=== PATIENT | male | born 1955 | race Caucasian/White ===

== ENCOUNTER → 2017-05-25 09:32 | Outpatient (CLI) | payer OTHER, SELFPAY ==
[2017-05-25 12:41] LABS: Absolute Lymphocyte Count 1.66 X10^3/ul (0.83-4.51); Absolute Neutrophil Count 4.2 X10^3/uL (2.0-7.7); Basophil# 0.03 X10^3/uL; Basophil% 0.4 % (0-1); Eosinophil# 0.19 X10^3/uL; Eosinophils% 2.8 % (0-5); Hematocrit 46.3 % (40-54); Hemoglobin 15.8 g/dl (13.0-16.5); Lymphocyte # 1.66 X10^3/ul (4.0); Lymphocyte % 24.9 % (19-41); Mean Corp Hgb Conc 34.1 g/gl (32-36); Mean Corpuscular Volume 87.9 fL (80-94); Mean Platelet Vol. 9.5 fl (6.2-12.0); Monocyte# 0.63 X10^3/uL; Monocyte% 9.4 % (0-10); Neutrophil # 4.16 X10^3/uL (2.7-7.7); Neutrophil % 62.4 % (47-70); Platelet Count 280 K/mm3 (150-450); RBC Distribution Width CV 14.2 % (11.6-14.6); RBC Distribution Width SD 45.9 fl (35.1-43.9); Red Blood Count 5.27 M/mm3 (4.6-6.2); White Blood Count 6.7 K/mm3 (4.4-11.0)
[2017-05-25 12:45] LABS: POSITIVE COUNT NO; POSITIVE DIFFERENTIAL NO; POSITIVE MORPHOLOGY NO
[2017-05-25 14:59] LABS: ALB/GLOB Ratio 1.1 RATIO (0.9-2.4); AST(SGOT) 20 U/L (15-37); Alanine Aminotransfer ALT/SGPT 33 U/L (12-78); Alkaline Phosphatase 73 U/L (45-117); Anion Gap 8 (5-15); BUN 19 mg/dL (7-18); BUN/Creat Ratio 15.4 RATIO (10-20); Calcium,Total 9.1 mg/dL (8.5-10.1); Chloride 104 mmol/L (98-107); Cholesterol 189 mg/dL (200); Creatinine, Serum 1.23 mg/dL (0.70-1.30); EST Glomerular Filtration Rate 63 mL/min (>60); Est Glom Filt Rate - Afr Amer 76 mL/min (>60); Globulin 3.8 g/dL (2.2-4.2); Glucose 116 mg/dL (70-110); High Density Lipoprotein 53 mg/dL; PSA,Total - Annual Screen 1.73 ng/mL (0.00-4.00); Potassium 4.8 mmol/L (3.5-5.1); Protein, Total 7.8 g/dL (6.4-8.2); Sodium Level 139 mmol/L (136-145); Thyroid Stim Hormone (TSH) 1.59 uIU/mL (0.358-3.74); Triglycerides 73 mg/dL; Very Low Density Lipoprotein 15 mg/dL (5-40)
[2017-05-26 10:07] LABS: Hep C Antibodies 0.2 s/co ratio (0.0-0.9)
== END ==
PROVIDERS: Family Provider Family Medicine Geriatric Medicine; PCP Family Medicine Geriatric Medicine; Visit Provider Family Medicine Geriatric Medicine
DX: Z00.00 Encounter for general adult medical examination without abnormal findings (principal); Z12.5 Encounter for screening for malignant neoplasm of prostate; Z13.89 Encounter for screening for other disorder
CPT/HCPCS: 36415; 80053; 80061; 84153; 84443; 85025; 86803; G0103

== ENCOUNTER → 2017-11-07 12:32 | Outpatient (CLI) | payer OTHER, SELFPAY ==
--- NOTE | 2017-11-07 12:55 | RAD_ITS ---
STUDY: X-RAY CHEST REASON FOR EXAM: Male, 62 years old. History of Martins's lung. TECHNIQUE: PA and lateral views of the chest. COMPARISON: Comparison is made with prior study dated November 06, 2015. FINDINGS: Since prior study, there is evidence of diffuse increased interstitial markings in both lungs. This is suggestive of a mild degree of CHF. There is blunting of both costophrenic angles posteriorly. Sternal cerclage wires and vascular clips are present from a prior sternotomy and coronary artery bypass graft procedure (CABG). Mild cardiomegaly. Normal mediastinum and shaista. Normal visualized pulmonary arteries. There is atherosclerotic tortuosity of the aortic arch and descending thoracic aorta. Normal visualized thoracic spine. Normal visualized ribs, clavicles, and shoulders. There is no demonstrated abnormality of the visualized soft tissue structures of the upper abdomen. RAD/Chest PA and Lateral IMPRESSION: Mild cardiomegaly. Diffuse increased interstitial markings in both lungs with blunting of both costophrenic angles. This is suggestive of mild CHF. Electronically Signed: Gerber Jovel MD at 13:43 EDT Tel [phone], Service support ,
[2017-11-07 16:27] LABS: Absolute Lymphocyte Count 1.42 X10^3/ul (0.83-4.51); Absolute Neutrophil Count 4.4 X10^3/uL (2.0-7.7); Basophil# 0.03 X10^3/uL; Basophil% 0.5 % (0-1); Eosinophils% 1.6 % (0-5); Hematocrit 38.8 % (40-54); Hemoglobin 12.7 g/dl (13.0-16.5); Lymphocyte # 1.42 X10^3/ul (4.0); Mean Corp Hgb Conc 32.7 g/gl (32-36); Mean Corpuscular Hgb 28.9 pg (27.0-32.0); Mean Corpuscular Volume 88.4 fL (80-94); Mean Platelet Vol. 9.8 fl (6.2-12.0); Monocyte# 0.54 X10^3/uL; Monocyte% 8.4 % (0-10); Neutrophil # 4.35 X10^3/uL (2.7-7.7); Neutrophil % 67.3 % (47-70); Platelet Count 307 K/mm3 (150-450); RBC Distribution Width CV 15.2 % (11.6-14.6); RBC Distribution Width SD 49.1 fl (35.1-43.9); Red Blood Count 4.39 M/mm3 (4.6-6.2); White Blood Count 6.5 K/mm3 (4.4-11.0)
[2017-11-07 16:28] LABS: POSITIVE COUNT NO; POSITIVE DIFFERENTIAL NO; POSITIVE MORPHOLOGY NO
[2017-11-07 16:39] LABS: Anion Gap 9 (5-15); BUN 14 mg/dL (7-18); BUN/Creat Ratio 12.2 RATIO (10-20); CPK Total, Creatine Kinase 207 U/L (39-308); Calcium,Total 9.1 mg/dL (8.5-10.1); Chloride 107 mmol/L (98-107); Creatinine, Serum 1.15 mg/dL (0.70-1.30); EST Glomerular Filtration Rate 68 mL/min (>60); Est Glom Filt Rate - Afr Amer 82 mL/min (>60); Glucose 110 mg/dL (74-106); Potassium 4.1 mmol/L (3.5-5.1); Sodium Level 142 mmol/L (136-145)
[2017-11-07 16:49] LABS: BNP,B-Type NATRIURETIC PEPTIDE 689.5 pg/mL (0-100)
[2017-11-07 17:21] LABS: D-Dimer Quantitative (DVT/PE) 0.77 FEU/ug/m (0.27-0.49)
[2017-11-11 20:07] LABS: Aspirgillus flavus Negative (Neg:<1:1); Aspirgillus fumigatus Negative (Neg:<1:1); Aspirgillus niger Negative (Neg:<1:1)
[2017-11-12 09:55] LABS: Myoglobin, Serum 80 ng/mL (28-72)
== END ==
PROVIDERS: Family Provider Family Medicine Geriatric Medicine; PCP Family Medicine Geriatric Medicine; Visit Provider Family Medicine Geriatric Medicine
DX: J67.0 Farmer's lung (principal); R06.02 Shortness of breath; R07.9 Chest pain, unspecified
CPT/HCPCS: 36415; 71046; 80048; 82550; 83874; 83880; 84484; 85025; 85379; 86606

== ENCOUNTER 2017-11-07 22:15 | Inpatient (IN) | payer OTHER, SELFPAY ==
[2017-11-07 22:15] VITALS: BP 208/114; PULSE 107; RESP 18; TEMP 36.5; O2SAT 98; BMI 29.8
[2017-11-07 22:50] VITALS: O2SAT 95
--- NOTE | 2017-11-07 22:59 | ED.RN ---
CALLED FOR EKG PER RN REQUEST, NO OLD EKG'S IN MUSE
[2017-11-07 23:13] VITALS: O2SAT 97
--- NOTE | 2017-11-07 23:13 | EKG12_ITS ---
Test Reason : SOB Blood Pressure : / mmHG Vent. Rate : 094 BPM Atrial Rate : 094 BPM P-R Int : 166 ms QRS Dur : 102 ms QT Int : 422 ms P-R-T Axes : 069 067 103 degrees QTc Int : 527 ms Normal sinus rhythm Prolonged QT Abnormal ECG Confirmed by EMILY GUY, DAYANA ([id number]), editor index WANG AMAYA ([id number]) on 11/10/2017 8:57:21 AM Referred By: Cliff Pardo Confirmed By:DAYANA DIAZ MD
--- NOTE | 2017-11-07 23:13 | CT_ITS ---
STUDY: CTA CHEST REASON FOR EXAM: Male, 62 years old. Shortness of breath and cough for 3 weeks. Elevated d-dimer. RADIATION DOSAGE (If Supplied By Facility): CTDIvol = ( 17.21 ) mGy, DLP = ( 702.18 ) mGycm TECHNIQUE: The examination was performed with the intravenous administration of 100ML ml of Isovue 370 contrast material. Post-processing of the angiographic images was performed, with multiplanar reformation. Individualized dose optimization techniques were used for this CT. COMPARISON: None. FINDINGS: Normal enhancement of the main pulmonary artery and right and left pulmonary arteries. Normal enhancement of the bilateral peripheral pulmonary arteries. There is no demonstrated pulmonary embolism. There is atherosclerotic tortuosity of the aortic arch and descending thoracic aorta. There is suboptimal enhancement of the thoracic aorta. Normal heart and pericardium. Sternal cerclage wires are present from a prior sternotomy. There are coronary calcifications. There is no evidence of pericardial effusion. There are few small mediastinal and left hilar nodes. There is no evidence of adenopathy. Normal visualized trachea and bronchi. The lungs are well expanded. There are prominent interstitial markings bilaterally and mild bronchiectatic changes. There are mild atelectatic changes in the lung bases. No focal infiltrate is seen. There is moderate right and small left pleural effusions. Normal chest wall structures. There are degenerative changes of thoracic spine. The visualized portions of the upper abdomen demonstrate questionable small gallstones. The gallbladder is contracted. The stomach is distended. CT/CTA Chest W/WO Contrast IMPRESSION: No evidence of pulmonary embolism. Bilateral pleural effusions larger on the right side. No focal infiltrate is seen. Mild atelectatic changes. Electronically Signed: Gabe Madsen MD at 0:15 EDT Tel , Service support ,
[2017-11-07 23:17] VITALS: PULSE 94; RESP 25; O2SAT 98
[2017-11-07] MEDS: Aspirin 81 MG TAB.CHEW 324 MG PO (23:21)
[2017-11-07 23:52] LABS: Absolute Lymphocyte Count 0.31 X10^3/ul (0.83-4.51); Absolute Neutrophil Count 7.4 X10^3/uL (2.0-7.7); Hematocrit 40.2 % (40-54); Hemoglobin 13.3 g/dl (13.0-16.5); Lymphocyte # 0.31 X10^3/ul (4.0); Mean Corp Hgb Conc 33.1 g/gl (32-36); Mean Corpuscular Hgb 28.9 pg (27.0-32.0); Mean Corpuscular Volume 87.2 fL (80-94); Mean Platelet Vol. 9.6 fl (6.2-12.0); Monocyte# 0.07 X10^3/uL; Monocyte% 0.9 % (0-10); Neutrophil # 7.35 X10^3/uL (2.7-7.7); Platelet Count 347 K/mm3 (150-450); RBC Distribution Width CV 14.9 % (11.6-14.6); RBC Distribution Width SD 47.5 fl (35.1-43.9); Red Blood Count 4.61 M/mm3 (4.6-6.2); White Blood Count 7.7 K/mm3 (4.4-11.0)
[2017-11-07 23:53] LABS: Differential Indicated SCAN CRITERIA MET; POSITIVE COUNT NO; POSITIVE DIFFERENTIAL YES; POSITIVE MORPHOLOGY NO
[2017-11-08] VITALS (28 sets, daily range): BP systolic 105–176; BP diastolic 52–98; PULSE 70–98; RESP 16–31; TEMP 36.4–36.7; O2SAT 92–98; BMI 29.4
[2017-11-08 00:02] LABS: Anion Gap 10 (5-15); BUN 17 mg/dL (7-18); BUN/Creat Ratio 14.8 RATIO (10-20); Calcium,Total 8.9 mg/dL (8.5-10.1); Chloride 108 mmol/L (98-107); Creatinine, Serum 1.15 mg/dL (0.70-1.30); EST Glomerular Filtration Rate 68 mL/min (>60); Est Glom Filt Rate - Afr Amer 82 mL/min (>60); Estimated Creatinine Clearance 71.23 ml/min; Glucose 209 mg/dL (74-106); Sodium Level 140 mmol/L (136-145)
[2017-11-08 00:23] LABS: Differential Comment SCANNED
--- NOTE | 2017-11-08 00:36 | ED.DCSUM_ITS ---
- ER Visit Summary Date of Service: 11/08/17 Chief Complaint: Shortness of breath History of Present Illness: The patient is a 62 M who presents with shortness of breath for about 3 weeks. He had initially attributed this to some moldy hay that he had been in contact with. He complains of dyspnea on exertion and nonproductive cough. His symptoms are relieved with rest. He denies any associated chest pain nausea or diaphoresis. He does have a history of coronary artery disease and prior bypass but denies history of congestive heart failure. Also of note 1 week ago he flew out to [place] and then drove back. He has noticed some leg swelling. He was seen by his primary care physician today who obtained an outpatient workup which returned notable for elevated d- dimer BNP troponin and findings consistent with CHF on chest x-ray so was sent here for further evaluation. Physical Examination: Initial blood pressure 208/114 heart rate 107 no distress pulse ox 98% on room air Moist mucous membranes Heart regular rhythm tachycardia Lungs are clear Abdomen soft Alert Test Results: EKG shows sinus rhythm at a rate of 94. CBC BMP unremarkable. Troponin is 0.231 which is decreased from labs earlier today. CTA was obtained due to recent travel and positive d-dimer which showed bilateral pleural effusions but no evidence of pulmonary embolism. Emergency Department Course and Treatment: Patient was given aspirin on arrival here. He was placed on oxygen. He was given IV Lasix for acute congestive heart failure. He will require further workup including serial enzymes and echocardiogram, cardiology consultation. Patient was discussed with the hospitalist will be admitted. Treatment Plan: [] Disposition: Admit Impression: Acute congestive heart failure Coronary artery disease Elevated troponin This note was generated with [employer] dictation software. It may contain incorrect words, spelling, and punctuation that were not noted in review of the chart prior to signing ED Disposition - Plan for ED Patient: Chief Complaint: Shortness of Breath Referrals: Cliff Pardo Chi, MD [Primary Care Provider] -
[2017-11-08] MEDS: Furosemide 40 MG/4 ML Vial IV ×2 (01:08→17:35)
[2017-11-08] MEDS: TICAGRELOR 90 MG TABLET 180 MG PO (01:18)
[2017-11-08] MEDS: Enoxaparin 100 MG/ML Syringe SC (01:18)
--- NOTE | 2017-11-08 02:08 | ECHOD_ITS ---
Reason For Study: S/P ME Procedure This was a 2D Doppler, Color Flow transthoracic echocardiogram. Exam performed portable in patient room. Left Ventricle Moderately dilated left ventricle. The estimated ejection fraction is 30-35 %. Stage 2 diastolic dysfunction. There is moderate to severe global hypokinesis of the left ventricle. Right Ventricle Moderately dilated right ventricle. Mild global right ventricular systolic dysfunction. Atria The left atrium is moderately enlarged. The right atrium is moderately enlarged. Normal atrial septum. Mitral Valve Mild diffuse mitral valve thickening. Mild-Moderate (1-2+) mitral valve insufficiency. Tricuspid Valve Normal tricuspid valve. Trivial tricuspid valve insufficiency. Right ventricular systolic pressure estimated to be 37 mmHg. Mild pulmonary hypertension. Aortic Valve Trisinus/trileaflet aortic valve. Mild diffuse aortic valve thickening. Mild-Moderate (1-2+) eccentric aortic valve insufficiency. Pulmonic Valve Normal pulmonic valve. Trivial pulmonic valve insufficiency. Great Vessels Normal aortic root. Normal arch. The inferior vena cava is dilated. No collapse of the inferior vena cava. Pericardium/Pleural No pericardial effusion. MMode/2D Measurements & Calculations LVIDd: 5.8 cm IVSd: 0.85 cm Ao root diam: 3.7 cm LVIDs: 4.9 cm LVPWd: 0.94 cm LA dimension: 4.6 cm RVDd: 4.2 cm FS: 16.5 % LAV(MOD-bp): 83.6 ml LVAd ap4: 49.1 cm2 SV(MOD-sp4): 73.8 ml LAV(MOD-bp) Indexed: 38.0 ml/m2 EDV(MOD-sp4): 195.0 ml LAV(MOD-sp2): 100.6 ml EDV(sp4-el): 199.5 ml LAV(MOD-sp4): 64.6 ml LVAs ap4: 34.5 cm2 ESV(MOD-sp4): 121.3 ml ESV(sp4-el): 117.2 ml EF(MOD-sp4): 37.8 % EF(sp4-el): 41.2 % SV(sp4-el): 82.2 ml LA A4 area: 23.1 cm2 RA A4 area: 22.2 cm2 Time Measurements MV dec time: 0.15 sec Doppler Measurements & Calculations MV E max mariusz: 131.2 cm/sec Lat Peak E' Mariusz: 4.6 cm/sec Med Peak E' Mariusz: 4.3 cm/sec MV A max mariusz: 32.6 cm/sec E/E' lat: 28.5 E/E' med: 30.6 MV E/A: 4.0 Ao V2 max: 118.9 cm/sec AI max mariusz: 503.0 cm/sec LV V1 max: 96.7 cm/sec Ao max P.7 mmHg AI max P.2 mmHg LV V1 max P.7 mmHg AI dec slope: 472.7 cm/sec2 AI P1/2t: 311.7 msec TR max mariusz: 284.5 cm/sec TR max P.4 mmHg Interpretation Summary Moderately dilated left ventricle. The estimated ejection fraction is 30-35 %. Stage 2 diastolic dysfunction. There is moderate to severe global hypokinesis of the left ventricle. Moderately dilated right ventricle. Mild global right ventricular systolic dysfunction. The left atrium is moderately enlarged. The right atrium is moderately enlarged. Mild-Moderate (1-2+) mitral valve insufficiency. Trivial tricuspid valve insufficiency. Right ventricular systolic pressure estimated to be 37 mmHg. Mild pulmonary hypertension. Mild-Moderate (1-2+) eccentric aortic valve insufficiency. Compared to echo report dated 07/22/2015, LV function has decreased from 55% to 35%. AI and MR have remained the same. Ordering Physician: Mick Emanuel Referring Physician: Cliff Pardo Chi Performed By: Charito Chow, CIRACS, RVT
[2017-11-08 04:40] LABS: Bacteria 0 SEEN /hpf (None Seen); Mucous, Urine 0 SEEN /hpf (<or=2+); Red Blood Cells-Urine 0 SEEN /hpf (0-5); Squamous Epithelial Cells - UA 0 SEEN /hpf (0-5); White Blood Cells 0 SEEN /hpf (0-5)
[2017-11-08 04:53] LABS: Color, Urine Straw (Yellow); Glucose, Dipstick Normal (Normal); Ketone-Dipstick Negative (Negative); Leukocyte Esterase-Dipstick Negative /ul (Negative); Nitrite-Dipstick Negative (Negative); Occult Blood-Urine Negative /ul (Negative); Protein-Dipstick Negative (Negative); Specific Gravity, Urine 1.005 (1.002-1.030); Urine Bilirubin Dipstick Negative (Negative); Urine Clarity Clear (Clear); Urine Urobilinogen Normal (Normal)
--- NOTE | 2017-11-08 04:54 | PCM.HP.STD ---
Problem List (1) Shortness of breath Status: Acute (2) Elevated troponin Status: Acute History of Present Illness Date of Admission: 11/08/17 Chief Complaint: Elevated troponin, shortness of breath The patient is a 62 year old M who was seen in the emergency room at [facility] after being instructed to go there for evaluation after an office visit today by his PCP revealed his troponin to be elevated at 0.44 and his beta natruretic peptide to be elevated at 689. Patient had seen his PCP today with complaints of extreme shortness of breath over the last week and mild to moderate shortness of breath over the last 3 weeks. Patient had no complaints of any cough with sputum production, no complaints of fever, chills, or hemoptysis. He has a past history of coronary artery bypass in July 2015, patient had a stress test in 2016 which was negative for reversible ischemia. Workup in the emergency room revealed the patient's troponin to be 0.23, CT of the chest was performed which showed no evidence of pulmonary emboli, evidence of mild bronchiectasis was noted, there was a moderate right pleural effusion and a small left pleural effusion along with marked interstitial changes in the lungs. Patient's beta natruretic peptide was not rechecked. EKG was obtained which showed a normal sinus rhythm without evidence of ischemic changes. Patient was not hypoxic on room air. Patient was given IV Lasix in the emergency room, he will be admitted to PCU for a non-STEMI and CHF. I will maintain him on a small amount of IV Lasix twice a day, echocardiogram will be obtained and cardiology will be consulted. Past Medical History Past Medical History (Chronic Problems): Chronic Problems (Last Reviewed 10/10/17 @ 15:45 by Hina Minor) White coat syndrome with hypertension (Chronic) RBBB (Chronic) Premature ventricular contraction (Chronic) Nonrheumatic aortic valve insufficiency (Chronic) Atherosclerosis of coronary artery of [place] heart without angina pectoris (Chronic) CABG x 3 FZST-pucd-wm-side-Mid LAD and end-to-side to the apical segment, Free ABIMAEL-OM, SVG-PDA of the RCA 08/12/2015 H/O coronary artery bypass surgery (Chronic ~08/12/15) CABG x 3 LUYD-ttpu-uy-side-Mid LAD and end-to-side to the apical segment, Free ABIMAEL-OM, SVG-PDA of the RCA 08/12/2015 Non-alcoholic fatty liver disease (Chronic) Hyperlipidemia (Chronic) Hypertension (Chronic) Medical History: Medical History (Last Reviewed 10/10/17 @ 15:45 by Hina Minor) White coat syndrome with hypertension (Chronic) I10 RBBB (Chronic) I45.10 Premature ventricular contraction (Chronic) I49.3 Nonrheumatic aortic valve insufficiency (Chronic) I35.1 Atherosclerosis of coronary artery of [place] heart without angina pectoris (Chronic) I25.10 CABG x 3 VXJQ-pkgz-zh-side-Mid LAD and end-to-side to the apical segment, Free ABIMAEL-OM, SVG-PDA of the RCA 08/12/2015 Non-alcoholic fatty liver disease (Chronic) K76.0 Hyperlipidemia (Chronic) E78.5 Hypertension (Chronic) I10 Allergies pravastatin sodium [From Pravachol] Allergy (Verified 11/07/17 22:18) Unknown atorvastatin calcium [From Lipitor] Adverse Reaction (Verified 11/07/17 22:18) Pain in joints gemfibrozil Adverse Reaction (Verified 11/07/17 22:18) myalgia Home Medications: Ambulatory Orders Medication Instructions Recorded aspirin 81 mg tablet,delayed 81 mg PO DAILY 05/24/17 release carvedilol 3.125 mg tablet 3.125 mg PO BID #180 tab 05/24/17 lisinopril 20 mg tablet 20 mg PO BID #180 tab 05/24/17 Surgical History: Surgical History (Last Reviewed 10/10/17 @ 15:45 by Hina Minor) H/O coronary artery bypass surgery (Chronic) Onset Date: ~08/12/15 Z95.1 CABG x 3 WSNU-axey-qn-side-Mid LAD and end-to-side to the apical segment, Free ABIMAEL-OM, SVG-PDA of the RCA 08/12/2015 History of esophagogastroduodenoscopy (EGD) Onset Date: ~2014 Z98.890 Surgical History: coronary bypass surgery, tonsillectomy Psychiatric History: No pertinent psych hx Lives: Spouse/ Significant Other Smoking Status: Never smoker Tobacco Use: Non-smoker Alcohol: None Drugs: None - *Family History Maternal Family History: Family History (Last Reviewed 10/10/17 @ 15:45 by Hina Minor) Mother CAD (coronary artery disease) History Items: Heart Disease Paternal Family History: Family History (Last Reviewed 10/10/17 @ 15:45 by Hina Minor) Mother CAD (coronary artery disease) History Items: Unknown Review of Systems Constitutional: Reports: Fatigue. Denies: Anorexia, Chills, Fever, Night Sweats, Malaise, Weakness, Weight Change Eyes: Denies: Blurred vision, Cataracts, Conjunctivae Inflammation, Double vision, Drainage HEENT: Denies: Difficulty Swallowing, Dysphasia, Ear Pain, Eye Pain, Head Aches, Hearing Changes, Nasal bleeding, Nasal Congestion, Post Nasal Drip Cardiovascular: Reports: Light Headedness. Denies: Chest Pain, Claudication, Chest Pressure, Chest Tightness, Edema, Heaviness, Orthopnea, Palpitations, Paroxysmal Noc. Dyspnea, Syncope Respiratory: Reports: Shortness of Breath, Shortness of breath upon exertion. Denies: Cough, Hemoptysis, Pleuritic Pain, Shortness of breath at rest, Sputum production, Wheezing Gastrointestinal: Denies: Abdominal Pain, Constipation, Diarrhea, Hematemesis, Hematochezia, Nausea Genitourinary: Denies: Frequency, Hematuria, Nocturia, Retention Musculoskeletal: Denies: Back Pain, Foot Pain, Hand Pain, Joint swelling, Joint Tenderness, Leg Pain Skin: Denies: Dryness, Jaundice, Pruritis, Rash Neurological: Denies: Blurred vision, Double vision, Change in Speech, Focal weakness, Headaches, Incoordination Psychiatric: Denies: Anxiety, Depression Endocrine: Denies: Change in Body Habitus, Heat/ Cold Intolerance, Polyuria, Hx of Irradiation VTE Information - Inpt Only VTE Present on Admission: No VTE Mechan Device Prophylaxis: None VTE Pharm Prophylaxis ordered?: Yes Patient Problems: Active and Suspected Problems (Last Reviewed 10/10/17 @ 15:45 by Hina Minor) Shortness of breath (Acute) Elevated troponin (Acute) - Physical Exam General: Alert, Oriented x3, Cooperative, No apparent distress, Well developed, Well nourished HEENT: Atraumatic, PERRLA, EOMI, Normocephalic Oral: Moist Mucosa Neck: Supple, No JVD, Negative Carotid Bruits, No Nuchal Rigidity, Trachea Midline, Thyroid Normal Size and Texture Lungs: Clear to auscultation, Normal air movement, No rhonchi, No wheeze, No rales Cardiovascular: Regular rate, Regular Rhythm, Normal S1, Normal S2, No murmurs, PMI Normal, No rub noted, No Gallop Abdomen: Bowel Sounds Present, Soft, Non Tender, Non-Distended, No hernias noted Extremities: No clubbing, No cyanosis, Capillary Refill Less than 3 Seconds, Edema - Mild pitting edema is noted in the lower legs bilaterally Skin: No rashes, No breakdown Musculoskeletal: No Tenderness to Palpation of Joints or Extremities Neurological: Cranial nerves II-XII grossly intact, Neuro grossly intact, Muscle tone normal, Sensory exam intact to light touch and pain Psych/Mental Status: Normal Affect, Appropriate, Alert and oriented to time, place, person, mood and affect Vital Signs Temp Pulse Resp BP Pulse Ox 97.6 F L 98 16 169/91 H 97 11/08/17 02:21 11/08/17 03:02 11/08/17 02:21 11/08/17 02:25 11/08/17 02:28 Oxygen Delivery Method Room Air Weight: 98.4 kg Body Mass Index (BMI) 29.4 Laboratory Tests Past 24 Hrs 11/08/17 11/08/17 03:05 03:30 Troponin I 0.249 H Urine Color Straw Urine Clarity Clear Urine pH 7.0 Ur Specific [place] 1.005 Urine Protein Negative Urine Glucose (UA) Normal Urine Ketones Negative Urine Occult Blood Negative Urine Nitrite Negative Urine Bilirubin Negative Urine Urobilinogen Normal Ur Leukocyte Esterase Negative Urine RBC Pending Urine WBC Pending Ur Squamous Epith Cells Pending Urine Bacteria Pending Urine Mucus Pending Assessment/Plan All Active Problems (Last Reviewed 10/10/17 @ 15:45 by Hina Minor) Shortness of breath (Acute) Elevated troponin (Acute) #1 elevated troponins indicating probable [id number] will be admitted to PCU, enzymes will be cycled, patient will be seen by cardiology in consultation, he was given 1 dose of Lovenox 1 mg/kg subcu, he was also given Brilinta 180 mg p.o. Cardiology will decide if patient will require a cardiac catheterization. Echocardiogram will be obtained, patient will be monitored #2 Probable mild congestive heart failure-it is unknown whether this is systolic or diastolic in nature, echocardiogram will be obtained, patient will be maintained on a small amount of IV Lasix and monitored. #3 dyspnea-probably secondary to mild CHF #4 coronary artery disease by history Code Visit Inpatient E&M: 72162 Init Hosp L3
--- NOTE | 2017-11-08 05:05 | HP.PCM_ITS ---
Problem List (1) Shortness of breath Status: Acute (2) Elevated troponin Status: Acute History of Present Illness Date of Admission: 11/08/17 Chief Complaint: Elevated troponin, shortness of breath The patient is a 62 year old M who was seen in the emergency room at [facility] after being instructed to go there for evaluation after an office visit today by his PCP revealed his troponin to be elevated at 0.44 and his beta natruretic peptide to be elevated at 689. Patient had seen his PCP today with complaints of extreme shortness of breath over the last week and mild to moderate shortness of breath over the last 3 weeks. Patient had no complaints of any cough with sputum production, no complaints of fever, chills, or hemoptysis. He has a past history of coronary artery bypass in July 2015, patient had a stress test in 2016 which was negative for reversible ischemia. Workup in the emergency room revealed the patient's troponin to be 0.23, CT of the chest was performed which showed no evidence of pulmonary emboli, evidence of mild bronchiectasis was noted, there was a moderate right pleural effusion and a small left pleural effusion along with marked interstitial changes in the lungs. Patient's beta natruretic peptide was not rechecked. EKG was obtained which showed a normal sinus rhythm without evidence of ischemic changes. Patient was not hypoxic on room air. Patient was given IV Lasix in the emergency room, he will be admitted to PCU for a non-STEMI and CHF. I will maintain him on a small amount of IV Lasix twice a day, echocardiogram will be obtained and cardiology will be consulted. Past Medical History Past Medical History (Chronic Problems): Chronic Problems (Last Reviewed 10/10/17 @ 15:45 by Hina Minor) White coat syndrome with hypertension (Chronic) RBBB (Chronic) Premature ventricular contraction (Chronic) Nonrheumatic aortic valve insufficiency (Chronic) Atherosclerosis of coronary artery of [place] heart without angina pectoris ( Chronic) CABG x 3 MYTH-iwhf-yr-side-Mid LAD and end-to-side to the apical segment, Free ABIMAEL-OM, SVG-PDA of the RCA 08/12/2015 H/O coronary artery bypass surgery (Chronic ~08/12/15) CABG x 3 VMAV-qhne-nv-side-Mid LAD and end-to-side to the apical segment, Free ABIMAEL-OM, SVG-PDA of the RCA 08/12/2015 Non-alcoholic fatty liver disease (Chronic) Hyperlipidemia (Chronic) Hypertension (Chronic) Medical History: Medical History (Last Reviewed 10/10/17 @ 15:45 by Hina Minor) White coat syndrome with hypertension (Chronic) I10 RBBB (Chronic) I45.10 Premature ventricular contraction (Chronic) I49.3 Nonrheumatic aortic valve insufficiency (Chronic) I35.1 Atherosclerosis of coronary artery of [place] heart without angina pectoris ( Chronic) I25.10 CABG x 3 KKGH-skup-it-side-Mid LAD and end-to-side to the apical segment, Free ABIMAEL-OM, SVG-PDA of the RCA 08/12/2015 Non-alcoholic fatty liver disease (Chronic) K76.0 Hyperlipidemia (Chronic) E78.5 Hypertension (Chronic) I10 Allergies pravastatin sodium [From Pravachol] Allergy (Verified 11/07/17 22:18) Unknown atorvastatin calcium [From Lipitor] Adverse Reaction (Verified 11/07/17 22:18) Pain in joints gemfibrozil Adverse Reaction (Verified 11/07/17 22:18) myalgia Home Medications: Ambulatory Orders Medication Instructions Recorded aspirin 81 mg tablet,delayed 81 mg PO DAILY 05/24/17 release carvedilol 3.125 mg tablet 3.125 mg PO BID #180 tab 05/24/17 lisinopril 20 mg tablet 20 mg PO BID #180 tab 05/24/17 Surgical History: Surgical History (Last Reviewed 10/10/17 @ 15:45 by Hina Minor) H/O coronary artery bypass surgery (Chronic) Onset Date: ~08/12/15 Z95.1 CABG x 3 FQYI-eouf-rc-side-Mid LAD and end-to-side to the apical segment, Free ABIMAEL-OM, SVG-PDA of the RCA 08/12/2015 History of esophagogastroduodenoscopy (EGD) Onset Date: ~2014 Z98.890 Surgical History: coronary bypass surgery, tonsillectomy Psychiatric History: No pertinent psych hx Lives: Spouse/ Significant Other Smoking Status: Never smoker Tobacco Use: Non-smoker Alcohol: None Drugs: None - *Family History Maternal Family History: Family History (Last Reviewed 10/10/17 @ 15:45 by Hina Minor) Mother CAD (coronary artery disease) History Items: Heart Disease Paternal Family History: Family History (Last Reviewed 10/10/17 @ 15:45 by Hian Minor) Mother CAD (coronary artery disease) History Items: Unknown Review of Systems Constitutional: Reports: Fatigue. Denies: Anorexia, Chills, Fever, Night Sweats , Malaise, Weakness, Weight Change Eyes: Denies: Blurred vision, Cataracts, Conjunctivae Inflammation, Double vision, Drainage HEENT: Denies: Difficulty Swallowing, Dysphasia, Ear Pain, Eye Pain, Head Aches , Hearing Changes, Nasal bleeding, Nasal Congestion, Post Nasal Drip Cardiovascular: Reports: Light Headedness. Denies: Chest Pain, Claudication, Chest Pressure, Chest Tightness, Edema, Heaviness, Orthopnea, Palpitations, Paroxysmal Noc. Dyspnea, Syncope Respiratory: Reports: Shortness of Breath, Shortness of breath upon exertion. Denies: Cough, Hemoptysis, Pleuritic Pain, Shortness of breath at rest, Sputum production, Wheezing Gastrointestinal: Denies: Abdominal Pain, Constipation, Diarrhea, Hematemesis, Hematochezia, Nausea Genitourinary: Denies: Frequency, Hematuria, Nocturia, Retention Musculoskeletal: Denies: Back Pain, Foot Pain, Hand Pain, Joint swelling, Joint Tenderness, Leg Pain Skin: Denies: Dryness, Jaundice, Pruritis, Rash Neurological: Denies: Blurred vision, Double vision, Change in Speech, Focal weakness, Headaches, Incoordination Psychiatric: Denies: Anxiety, Depression Endocrine: Denies: Change in Body Habitus, Heat/ Cold Intolerance, Polyuria, Hx of Irradiation VTE Information - Inpt Only VTE Present on Admission: No VTE Mechan Device Prophylaxis: None VTE Pharm Prophylaxis ordered?: Yes Patient Problems: Active and Suspected Problems (Last Reviewed 10/10/17 @ 15:45 by Hina Minor) Shortness of breath (Acute) Elevated troponin (Acute) - Physical Exam General: Alert, Oriented x3, Cooperative, No apparent distress, Well developed, Well nourished HEENT: Atraumatic, PERRLA, EOMI, Normocephalic Oral: Moist Mucosa Neck: Supple, No JVD, Negative Carotid Bruits, No Nuchal Rigidity, Trachea Midline, Thyroid Normal Size and Texture Lungs: Clear to auscultation, Normal air movement, No rhonchi, No wheeze, No rales Cardiovascular: Regular rate, Regular Rhythm, Normal S1, Normal S2, No murmurs, PMI Normal, No rub noted, No Gallop Abdomen: Bowel Sounds Present, Soft, Non Tender, Non-Distended, No hernias noted Extremities: No clubbing, No cyanosis, Capillary Refill Less than 3 Seconds, Edema - Mild pitting edema is noted in the lower legs bilaterally Skin: No rashes, No breakdown Musculoskeletal: No Tenderness to Palpation of Joints or Extremities Neurological: Cranial nerves II-XII grossly intact, Neuro grossly intact, Muscle tone normal, Sensory exam intact to light touch and pain Psych/Mental Status: Normal Affect, Appropriate, Alert and oriented to time, place, person, mood and affect Vital Signs Temp Pulse Resp BP Pulse Ox 97.6 F L 98 16 169/91 H 97 11/08/17 02:21 11/08/17 03:02 11/08/17 02:21 11/08/17 02:25 11/08/17 02:28 Oxygen Delivery Method Room Air Weight: 98.4 kg Body Mass Index (BMI) 29.4 Laboratory Tests Past 24 Hrs 11/08/17 11/08/17 03:05 03:30 Troponin I 0.249 H Urine Color Straw Urine Clarity Clear Urine pH 7.0 Ur Specific [place] 1.005 Urine Protein Negative Urine Glucose (UA) Normal Urine Ketones Negative Urine Occult Blood Negative Urine Nitrite Negative Urine Bilirubin Negative Urine Urobilinogen Normal Ur Leukocyte Esterase Negative Urine RBC Pending Urine WBC Pending Ur Squamous Epith Cells Pending Urine Bacteria Pending Urine Mucus Pending Assessment/Plan All Active Problems (Last Reviewed 10/10/17 @ 15:45 by iHna Minor) Shortness of breath (Acute) Elevated troponin (Acute) #1 elevated troponins indicating probable [id number] will be admitted to PCU, enzymes will be cycled, patient will be seen by cardiology in consultation , he was given 1 dose of Lovenox 1 mg/kg subcu, he was also given Brilinta 180 mg p.o. Cardiology will decide if patient will require a cardiac catheterization. Echocardiogram will be obtained, patient will be monitored #2 Probable mild congestive heart failure-it is unknown whether this is systolic or diastolic in nature, echocardiogram will be obtained, patient will be maintained on a small amount of IV Lasix and monitored. #3 dyspnea-probably secondary to mild CHF #4 coronary artery disease by history Code Visit Inpatient E&M: 97501 Init Hosp L3
[2017-11-08] MEDS: Aspirin E.C. 81 MG Tablet PO (05:54)
[2017-11-08] MEDS: Lisinopril 20 MG Tablet PO (05:54)
[2017-11-08] MEDS: Carvedilol 3.125 MG TABLET PO ×2 (05:54→21:08)
[2017-11-08] MEDS: 0.9% NaCl Peripheral Flush Adult/Peds IV ×2 (05:54→08:59)
--- NOTE | 2017-11-08 05:55 | RAD_ITS ---
STUDY: X-RAY CHEST REASON FOR EXAM: Male, 62 years old. Chest pain. CHF. TECHNIQUE: Single AP portable view of the chest. COMPARISON: Comparison is made with prior study dated November 07, 2017. FINDINGS: EKG electrodes are seen. The previously seen diffuse increased interstitial markings have improved. Residual changes persist. There is evidence of pulmonary vascular congestion and mild CHF. Blunting of the left costophrenic angle. Sternal cerclage wires and vascular clips are present from a prior sternotomy and coronary artery bypass graft procedure (CABG). Mild cardiomegaly. Normal mediastinum and shaista. Normal visualized pulmonary arteries. There is atherosclerotic tortuosity of the aortic arch and descending thoracic aorta. There are diffuse degenerative changes of the visualized thoracic spine. There is degenerative osteoarthritis of the bilateral shoulders. There is no demonstrated abnormality of the visualized soft tissue structures of the upper abdomen. RAD/Chest 1 View (Portable) IMPRESSION: Mild residual CHF although there has been a moderate degree of improvement as compared to prior study. Electronically Signed: Gerber Jovel MD at 8:54 EDT Tel [phone], Service support ,
--- NOTE | 2017-11-08 05:55 | EKG12_ITS ---
Test Reason : AM Blood Pressure : / mmHG Vent. Rate : 088 BPM Atrial Rate : 088 BPM P-R Int : 166 ms QRS Dur : 104 ms QT Int : 434 ms P-R-T Axes : 071 078 102 degrees QTc Int : 525 ms Normal sinus rhythm Prolonged QT Abnormal ECG No previous ECGs available Confirmed by EMILY GUY, DAYANA ([id number]), research editor WANG AMAYA ([id number]) on 11/10/2017 9:45:19 AM Referred By: JUSTINA Confirmed By:DAYANA DIAZ MD
[2017-11-08 06:08] LABS: Absolute Lymphocyte Count 0.42 X10^3/ul (0.83-4.51); Absolute Neutrophil Count 8.9 X10^3/uL (2.0-7.7); Basophil# 0.01 X10^3/uL; Basophil% 0.1 % (0-1); Hematocrit 39.5 % (40-54); Hemoglobin 13.1 g/dl (13.0-16.5); Lymphocyte # 0.42 X10^3/ul (4.0); Lymphocyte % 4.3 % (19-41); Mean Corp Hgb Conc 33.2 g/gl (32-36); Mean Corpuscular Hgb 28.8 pg (27.0-32.0); Mean Corpuscular Volume 86.8 fL (80-94); Mean Platelet Vol. 9.2 fl (6.2-12.0); Monocyte# 0.47 X10^3/uL; Monocyte% 4.8 % (0-10); Neutrophil # 8.87 X10^3/uL (2.7-7.7); Neutrophil % 90.6 % (47-70); Platelet Count 350 K/mm3 (150-450); RBC Distribution Width SD 47.4 fl (35.1-43.9); Red Blood Count 4.55 M/mm3 (4.6-6.2); White Blood Count 9.8 K/mm3 (4.4-11.0)
[2017-11-08 06:09] LABS: Differential Indicated SCAN CRITERIA MET; POSITIVE COUNT NO; POSITIVE DIFFERENTIAL YES; POSITIVE MORPHOLOGY NO
[2017-11-08 06:20] LABS: International Normalized Ratio 1.3; Prothrombin Time (Protime)PT. 16.2 SECONDS (11.7-14.9)
[2017-11-08 06:24] LABS: Differential Comment SCANNED
[2017-11-08 06:32] LABS: Anion Gap 11 (5-15); BUN 16 mg/dL (7-18); BUN/Creat Ratio 15.1 RATIO (10-20); Calcium,Total 8.5 mg/dL (8.5-10.1); Chloride 107 mmol/L (98-107); Creatinine, Serum 1.06 mg/dL (0.70-1.30); EST Glomerular Filtration Rate 75 mL/min (>60); Est Glom Filt Rate - Afr Amer 90 mL/min (>60); Estimated Creatinine Clearance 77.27 ml/min; Glucose 134 mg/dL (74-106); Potassium 3.9 mmol/L (3.5-5.1); Sodium Level 142 mmol/L (136-145)
[2017-11-08] MEDS: Furosemide 20 MG/2 ML VIAL IV (08:59)
[2017-11-08] MEDS: TICAGRELOR 90 MG TABLET PO ×2 (08:59→21:08)
--- NOTE | 2017-11-08 09:16 | CASEMGMT ---
According to the [facility] website, the following are in-network tertiary facilities: [facility], [place], [facility], [facility], and . Coreen JOHNSON CM
--- NOTE | 2017-11-08 11:23 | CASEMGMT ---
Face to Face with patient for initial transition planning/care coordination assessment. ALEX THAO introduced self and role at [facility], pt voices understanding and consents to assessment at this time. Pt is sitting up in bed in no distress at this time. Pt is A/O x4 at this time and answers all questions appropriately at this time. Care providers, pharmacy, and demographics verified. See attached link. Pt voices no further concerns/needs at this time. Advised pt to ask for CM if any further questions/concerns/needs arise, voices understanding. PLAN: [place] ALEX THAO
[2017-11-08] MEDS: DiphenhydrAMINE 25 MG Capsule 50 MG PO (13:17)
[2017-11-08] MEDS: 0.9% Normal Saline 1,000 ML 15 ML IV (13:18)
--- NOTE | 2017-11-08 13:22 | NURSING ---
Called report to Leighton JOHNSON in lab nurse
--- NOTE | 2017-11-08 14:45 | EKG12_ITS ---
Test Reason : Blood Pressure : / mmHG Vent. Rate : 082 BPM Atrial Rate : 082 BPM P-R Int : 164 ms QRS Dur : 104 ms QT Int : 452 ms P-R-T Axes : 074 089 102 degrees QTc Int : 528 ms Normal sinus rhythm Left atrial enlargement Nonspecific ST and T wave abnormality Prolonged QT Abnormal ECG When compared with ECG of 08-NOV-2017 05:48, MANUAL COMPARISON REQUIRED, DATA IS UNCONFIRMED Confirmed by EMILY GUY, DAYANA ([id number]), book editor WANG AMAYA ([id number]) on 11/10/2017 10:04:42 AM Referred By: Cliff Pardo Confirmed By:DAYANA DIAZ MD
[2017-11-08 14:51] LABS: ACT Activated Clotting Time 169 sec (74-137)
--- NOTE | 2017-11-08 15:13 | CL.I_ITS ---
Patient Name: SEVERIANO HERNANDEZ Study Date: 11/08/2017 Performing: Alfredo Jenkins MD Ht: 72 inches 183 cm : 1955 Wt: 211.9 lbs 96 kg Age: 62 Gender: male BSA: 2.18 PROCEDURE(S) PERFORMED [id number]-EJT/COR/LV/CABG [id number] W OR WO PTCA, SINGLE CORONARY ARTERY CLINICAL PROFILE AND CO-MORBIDITIES Patient presents with NSTEMI for urgent cardiac cath Indications: New Onset Angina <= 2 months, Stable Known CAD, Cardiomyopathy, LV Dysfunction, ACS <= 24 hrs Heart Failure: NYHA Class: 2, Newly Diagnosed: Yes, Heart Failure Type: Systolic Stress/Imaging Stress/Image Study Performed: No Angina Classification Anginal Classification w/in 2 Weeks: CCS III CAD Presentations: Non-STEMI. Symptom onset Date/Time: 11/07/2017 Time Not Available Comorbidities/Risk Factors: Hypertension Dyslipidemia Prior CABG CONCLUSIONS Triple vessel CAD of the LAD, LCX, OM AND RCA Successful PTCA/ERROL of the RCA with a 3.0 x 38 Promus, followed immediately upstream with a 3.0 x 20 Promus; all post dilated with a 3.0 x 12 NC Balloon; 80%-->0%, no dissection. RECOMMENDATIONS Referred for immediate PCI Highly recommend quitting all tobacco products Follow up with primary missile technician Risk factor modification ASA Indefinitley Plavix for at least 12 months Routine post interventional care Refer for Outpatient Cardiac Rehab Manual sheath removal per protocol Consider AICD if LV function does not improve after PCI, meds and cardiac rehab. Repeat echo in 4 mo nths. Medical management of small vessel disease of distal Ramus. DESCRIPTION OF PROCEDURE The patient arrived to the procedure lab. The risks and benefits of the procedure as well as a full d escription of our services here and lack of surgical backup were fully explained to the patient and/o r their significant other prior to the catheterization. The Timeout was completed, verifying the jona ect patient and procedure. The patient's procedural site was prepped and draped in the usual fashion. Local anesthetic was given subcutaneously to right groin region with Lidocaine 2%. Using a modified Seldinger technique, arterial access was obtained via the right femoral artery, a 4Fr sheath was inse rted. Left Coronary Artery selective angiography was performed in multiple views using a 4 Fr. JL5 c atheter. Right Coronary Artery selective angiography was then performed in multiple views using a 4 F r. 3DRC catheter. Left internal mammary artery graft to the LAD selective angiography was performed i n multiple views using a 4 Fr. 3DRC catheter. Right internal mammary artery graft to the OM selective angiography was performed in multiple views using a 4 Fr. AR MOD 2 catheter. Saphenous Vein graft to the RPDA selective angiography was performed in multiple views using a 4 Fr. AR MOD 2 catheter. Left Ventriculography was performed in ANAYA projection using a 4 Fr. Pigtail catheter. LV to AO pullback p ressures were then recordedThe images were reviewed and options discussed. A decision was then made t o proceed with an Intervention, IVUS or other adjunct procedure. Arterial sheath was exchanged for a 6 Fr Sheath. HS II Guide catheter was inserted and engaged into t he RCA. BMW Guide wire was advanced to the RCA. 2x12 Emerge Balloon catheter was inserted. Balloon ca theter was advanced across lesion in the right coronary, mid. PTCA balloon inflated at 8 atms for 10 secs. PTCA balloon inflated at 10 atms for 12 secs. Angiogram performed post balloon dilatation. 3x38 Synergy Drug Eluting stent was inserted. Drug Eluting stent was advanced across the lesion in the ri ght coronary, mid. 3x20 Synergy Drug Eluting stent was inserted. Drug Eluting stent was advanced acro ss the lesion in the right coronary, mid. 3.5x12 NC Emerge Balloon catheter was inserted. Balloon cat heter was advanced across lesion in the right coronary, mid. Angiogram performed post stent deploymen t. 3x12 NC Emerge Balloon catheter was inserted. Balloon catheter was advanced across lesion in the r ight coronary, mid. Angiogram performed post stent deployment. Contrast was injected through the kowalski th and the Right Iliac and Femoral artery were assessed for possible closure device. The arterial sh eath was pulled and a Mynx closure device was deployed for hemostasis CORONARY ANGIOGRAPHY DOMINANCE: Right Dominant LEFT HEART ASSESSMENT Left Ventricular Ejection Fraction: by LV Gram 25 % Depressed Left Ventricular systolic function Elevated Left Ventricular End Diastolic Pressure LVEDP: 23 mmHg Anterior Hypokinesis - Severe. Inferior Mid Hypokinesis - Severe LEFT MAIN: No significant disease noted LEFT ANTERIOR DECENDING ARTERY: PROX LAD: 75 % Stenosis MID LAD: 85 % Stenosis CIRCUMFLEX ARTERY: is occluded OM 1: Proximal - is occluded RAMUS: Moderate luminal irregularities up to 50% RIGHT CORONARY ARTERY: MID RCA: 80 % Stenosis GRAFTS: Sequential ERYES graft to the proximal and mid LAD is patent Saphenous Vein graft to the 1st OM is patent Saphenous Vein graft to the RPDA is totally occluded INTERVENTION INFORMATION LESION SITE: RCA (Mid) Lesion Complexity: High/C, lesion at bifurcation: No, thrombus present: No, lesion length: 58 mm, cul prit lesion: Yes Pre Stenosis: 80 % Pre intervention STEFFANY flow: 3 PROCEDURE: Drug Eluting Stent with pre and post dilatation Post Stenosis: 0 % Post intervention STEFFANY flow: 3 Lesion Devices: Zibbytronic 6 Fr HSII 100cm Guide Catheter Lorenzo Sci EMERGE MR 2.00x12 BALLOON Zhao .014 BMW Glide Straight 190cm Lorenzo Sci Synergy MR ERROL 3.00x38 Lorenzo Sci Synergy MR ERROL 3.00x20 Lorenzo Sci NC EMERGE MR 3.50x12 BALLOON Lorenzo Sci NC EMERGE MR 3.00x12 BALLOON COMPLICATIONS No Complications PROCEDURE MEDICATIONS Oxygen: 2 L/min via nasal cannula Heparin 6000 unit(s) IV 11/08/2017 14:04:34 Nitro 200 mcg IC 11/08/2017 14:26:08 Nitro Tab 0.4 mg PO 11/08/2017 14:35:30 Nitro glycerin 25mg / 250ml D5W @ 5 mcg/min IV started 11/08/2017 14:35:58 SUMMARY OF HEMODYNAMIC DATA Time AIR REST ECG 13:34:51 AO 179/87 (121) SA 13:44:47 LV 180/-9, 23 14:01:28 LV 174/-8, 32 14:01:35 LVp 168/-10, 30 14:02:13 AOp 180/87 (125) 14:02:18 Signed By Alfredo Jenkins MD On 11/08/2017 15:12:57 Alfredo Jenkins MD
--- NOTE | 2017-11-08 15:14 | PCM.CONS.C ---
Problem List (1) Shortness of breath Status: Acute (2) Elevated troponin Status: Acute (3) Premature ventricular contraction Status: Chronic (4) Atherosclerosis of coronary artery of [place] heart without angina pectoris Status: Chronic Comment: CABG x 3 XNPX-ckrf-oj-side-Mid LAD and end-to-side to the apical segment, Free ABIMAEL-OM, SVG-PDA of the RCA 08/12/2015 (5) H/O coronary artery bypass surgery Status: Chronic Comment: CABG x 3 HXLW-onqz-hj-side-Mid LAD and end-to-side to the apical segment, Free ABIMAEL-OM, SVG-PDA of the RCA 08/12/2015 (6) Hypertension Status: Chronic Reason for Consult Date of Consultation: 11/08/17 Reason for Consultation: Congestive heart failure, coronary artery disease status post bypass, hypertension, hypercholesterolemia, LV dysfunction History of Present Illness: The patient is a 62 year old M patient of mine, with a history of hypertension, hypercholesterolemia, coronary artery disease status post three-vessel bypass surgery [place] [address] Viramontes at [facility]. At that time he received a sequential REYES to mid and distal LAD, saphenous vein graft to the obtuse marginal, and saphenous vein graft to the PDA. At that time his LV function was reportedly within normal limits. Patient returned with atypical chest pain underwent a stress test in 2016 which was negative for inducible ischemia. Patient reports that since August 2017 he has had progressively worsening dyspnea on exertion and shortness of breath which he attributed to a possible lung infection with exposure to moldy hay. Patient took some qhjp-cjx-bwvhooc herbal medications based on oregano, and had minimal improvement. Most recent the patient drove to [place] in [place] followed by a plane ride to [facility] followed by a [address] back to [facility] pickup his son. Patient did get out once in a while but did not stay overnight. Patient now presents with shortness of breath, chest pain, and inability to walk more than 100 feet. Patient presented to the emergency room and his EKG showed normal sinus rhythm, increased QT corrected interval, no acute changes were noted. His troponins were mildly elevated. Chest CT given his long car ride to rule out pulmonary embolism was negative for pulmonary embolism however demonstrated bilateral pleural effusions, right greater than left. Patient received IV Lasix therapy and his shortness of breath had improved. Given the patient's constellation of symptoms and risk factors I referred him for a left heart catheterization which demonstrated patent sequential REYES to the mid and distal LAD, patent saphenous vein graft to the obtuse marginal #1, and occluded saphenous vein graft to the RCA. Patient had nonobstructive disease of his ramus intermedius which was not correctable with PCI given the small size of the vessels, and his right coronary artery was stented today to improve overall coronary flow. Of interest, his LV function was profoundly depressed with an EF around 20% which is a new finding. In addition he had markedly elevated LVEDP of around 23 mmHg. Previous EF prior to his bypass was 45%. [] Past Medical History Allergies/Adverse Reactions: Allergies pravastatin sodium [From Pravachol] Allergy (Verified 11/07/17 22:18) Unknown atorvastatin calcium [From Lipitor] Adverse Reaction (Verified 11/07/17 22:18) Pain in joints gemfibrozil Adverse Reaction (Verified 11/07/17 22:18) myalgia Home Medications: Ambulatory Orders Medication Instructions Recorded aspirin 81 mg tablet,delayed 81 mg PO DAILY 05/24/17 release carvedilol 3.125 mg tablet 3.125 mg PO BID #180 tab 05/24/17 lisinopril 20 mg tablet 20 mg PO BID #180 tab 05/24/17 Past Medical History (Chronic Problems): Chronic Problems (Last Reviewed 10/10/17 @ 15:45 by Hina Minor) White coat syndrome with hypertension (Chronic) RBBB (Chronic) Premature ventricular contraction (Chronic) Nonrheumatic aortic valve insufficiency (Chronic) Atherosclerosis of coronary artery of [place] heart without angina pectoris (Chronic) CABG x 3 UPHE-czmo-zy-side-Mid LAD and end-to-side to the apical segment, Free ABIMAEL-OM, SVG-PDA of the RCA 08/12/2015 H/O coronary artery bypass surgery (Chronic ~08/12/15) CABG x 3 UKTE-duiy-im-side-Mid LAD and end-to-side to the apical segment, Free ABIMAEL-OM, SVG-PDA of the RCA 08/12/2015 Non-alcoholic fatty liver disease (Chronic) Hyperlipidemia (Chronic) Hypertension (Chronic) Surgical History: coronary bypass surgery, tonsillectomy Psychiatric History: No pertinent psych hx - *Family History Maternal Family History: Family History (Last Reviewed 10/10/17 @ 15:45 by Hina Minor) Mother CAD (coronary artery disease) History Items: Heart Disease Paternal Family History: Family History (Last Reviewed 10/10/17 @ 15:45 by Hina Minor) Mother CAD (coronary artery disease) History Items: Unknown Lives: Spouse/ Significant Other Smoking Status: Never smoker Tobacco Use: Non-smoker Alcohol: None Drugs: None Review of Systems - Review of Systems General: Denies: Fever, Night Sweats, Fatigue Cardiovascular: Reports: Chest Pressure, Shortness of Breath, Shortness of Breath with Exertion. Denies: Chest Discomfort, Orthopnea, PND, Peripheral Edema, Palpitations, Lightheadedness, Dizziness, Near Syncope, Syncope Respiratory: Denies: Cough, Sputum Production, Hemoptysis Gastrointestinal: Denies: Hematemesis, Hematochezia, Melena Genitourinary: Denies: Dysuria, Hematuria Skin: Denies: Rash Subjectve: Patient sitting in bed, no acute distress Objective: Vital Signs Temp Pulse Resp BP Pulse Ox 97.6 F L 78 16 144/75 H 94 11/08/17 11:50 11/08/17 11:50 11/08/17 11:50 11/08/17 11:50 11/08/17 11:50 Oxygen Flow Rate (L/min) 2 Oxygen Delivery Method Room Air Weight: 212 lb 8.41 oz Body Mass Index (BMI) 29.4 General: Awake, Alert, Oriented x 3 HEENT: PERRL, EOMI, Sclera Non Icteric Neck: Supple, Good ROM, No Lymph Node Enlargement Lungs: Diminished Right Base Cardiovascular: Regular Rhythm, Normal S1, Normal S2, No Murmurs, No Rubs, No Gallops Vascular: No Carotid Bruits, Normal Femoral Pulses, Normal Radial Pulses, Normal Dorsalis Pedal Pulse, Normal Posterior Tibial Pulses Abdomen: Bowel Sounds Present, Soft, Non Tender, No HSM, No Organomegaly Extremities: No Cyanosis, No Clubbing, No edema Neurological: No Focal Motor or Sensory Deficit 11/08/17 03:05: Troponin I 0.249 H 11/08/17 03:30: Urine Color Straw, Urine Clarity Clear, Urine pH 7.0, Ur Specific [place] 1.005, Urine Protein Negative, Urine Glucose (UA) Normal, Urine Ketones Negative, Urine Occult Blood Negative, Urine Nitrite Negative, Urine Bilirubin Negative, Urine Urobilinogen Normal, Ur Leukocyte Esterase Negative, Urine RBC 0 SEEN, Urine WBC 0 SEEN 11/08/17 05:38: WBC 9.8, RBC 4.55 L, Hgb 13.1, Hct 39.5 L, MCV 86.8, MCH 28.8, MCHC 33.2, RDW 15.0 H, RDW Differential 47.4 H, Plt Count 350, MPV 9.2, Immature Gran % (Auto) 0.200, Neut % (Auto) 90.6 H, Lymph % (Auto) 4.3 L, [place] % (Auto) 4.8, Eos % (Auto) 0.0, Baso % (Auto) 0.1, Absolute Neuts (auto) 8.9 H, Total Counted Not Reportable 11/08/17 05:38: PT 16.2 H, INR 1.3, APTT 34.0 11/08/17 05:38: Sodium 142, Potassium 3.9, Chloride 107, Carbon Dioxide 24.0, Anion Gap 11, BUN 16, Creatinine 1.06, Est GFR (MDRD) Af Amer 90, Est GFR (MDRD) Non-Af 75, BUN/Creatinine Ratio 15.1, Glucose 134 H, Calcium 8.5, Troponin I 0.234 H Rhythm: EKG: ECHO: Pending Stress Test: Cardiac Cath: As above PCI: CT Surgery: Holter monitor: EPS: PPM: CXR: Chest CT Scan: Assessment/Plan 1. Coronary artery disease: The patient presents with congestive heart failure symptoms, and appears to be in acute on chronic exacerbation of CHF superimposed upon pleural effusion, and non-STEMI. I recommended the patient undergo a left heart catheterization which was performed by me this afternoon which demonstrated patent grafts except for his saphenous vein graft to his RCA. His [place] RCA stenosis was corrected with 2 drug-eluting stents. His ejection fraction has diminished from 45% in the past 2 around 20% on today's exam with elevated LVEDP of approximately 23 mmHg. I recommend the patient continue baby aspirin and Brilinta for life given his [place] coronary artery disease and LV dysfunction. In addition we will continue IV diuresis to optimize his hemogram if pressures. We will add Aldactone 25 mg p.o. daily, and titrate up his Coreg. Recommend discontinuation of lisinopril given his dry hacking cough and switching him to Cozaar 50 mg p.o. daily and titrating up from there. Would recommend also Lasix IV 40 mg twice daily until he reaches his dry weight followed by 40 mg a day at least. In addition he will undergo a 1500 cc fluid restriction. If after revascularization, medical therapy, and cardiac rehab his LV function does not improve past 30%, I will refer him to Dr. Mera for prophylactic AICD therapy. At this point I would recommend holding off on intervention of his ramus intermedius disease as his distal vessels are quite small and are not accommodative to stenting. 2. Hyperlipidemia: Unfortunately the patient is unable to take statins or gemfibrozil due to allergies. 3. Discussed with Dr. Morris. Thank you very much for the opportunity to precipitate in the cardiac care of your patient. Consultation time took place between 9 and 9:30 AM. Code Visit Inpatient E&M: 48555 Init Hosp L2
--- NOTE | 2017-11-08 15:23 | CON.PCM_ITS ---
Problem List (1) Shortness of breath Status: Acute (2) Elevated troponin Status: Acute (3) Premature ventricular contraction Status: Chronic (4) Atherosclerosis of coronary artery of [place] heart without angina pectoris Status: Chronic Comment: CABG x 3 FGCG-djdq-tt-side-Mid LAD and end-to-side to the apical segment, Free ABIMAEL-OM, SVG-PDA of the RCA 08/12/2015 (5) H/O coronary artery bypass surgery Status: Chronic Comment: CABG x 3 BWPE-jhde-hm-side-Mid LAD and end-to-side to the apical segment, Free ABIMAEL-OM, SVG-PDA of the RCA 08/12/2015 (6) Hypertension Status: Chronic Reason for Consult Date of Consultation: 11/08/17 Reason for Consultation: Congestive heart failure, coronary artery disease status post bypass, hypertension, hypercholesterolemia, LV dysfunction History of Present Illness: The patient is a 62 year old M patient of mine, with a history of hypertension, hypercholesterolemia, coronary artery disease status post three-vessel bypass surgery in [address] at [facility]. At that time he received a sequential REYES to mid and distal LAD, saphenous vein graft to the obtuse marginal, and saphenous vein graft to the PDA. At that time his LV function was reportedly within normal limits. Patient returned with atypical chest pain underwent a stress test in 2016 which was negative for inducible ischemia. Patient reports that since August 2017 he has had progressively worsening dyspnea on exertion and shortness of breath which he attributed to a possible lung infection with exposure to moldy hay. Patient took some jfwm-qsb-cnfqkgz herbal medications based on oregano, and had minimal improvement. Most recent the patient drove to [place] in [place] followed by a plane ride to [facility] followed by a [address] back to [facility] pickup his son. Patient did get out once in a while but did not stay overnight. Patient now presents with shortness of breath, chest pain, and inability to walk more than 100 feet. Patient presented to the emergency room and his EKG showed normal sinus rhythm, increased QT corrected interval, no acute changes were noted. His troponins were mildly elevated. Chest CT given his long car ride to rule out pulmonary embolism was negative for pulmonary embolism however demonstrated bilateral pleural effusions, right greater than left. Patient received IV Lasix therapy and his shortness of breath had improved. Given the patient's constellation of symptoms and risk factors I referred him for a left heart catheterization which demonstrated patent sequential REYES to the mid and distal LAD, patent saphenous vein graft to the obtuse marginal #1, and occluded saphenous vein graft to the RCA. Patient had nonobstructive disease of his ramus intermedius which was not correctable with PCI given the small size of the vessels, and his right coronary artery was stented today to improve overall coronary flow. Of interest, his LV function was profoundly depressed with an EF around 20% which is a new finding. In addition he had markedly elevated LVEDP of around 23 mmHg. Previous EF prior to his bypass was 45%. [] Past Medical History Allergies/Adverse Reactions: Allergies pravastatin sodium [From Pravachol] Allergy (Verified 11/07/17 22:18) Unknown atorvastatin calcium [From Lipitor] Adverse Reaction (Verified 11/07/17 22:18) Pain in joints gemfibrozil Adverse Reaction (Verified 11/07/17 22:18) myalgia Home Medications: Ambulatory Orders Medication Instructions Recorded aspirin 81 mg tablet,delayed 81 mg PO DAILY 05/24/17 release carvedilol 3.125 mg tablet 3.125 mg PO BID #180 tab 05/24/17 lisinopril 20 mg tablet 20 mg PO BID #180 tab 05/24/17 Past Medical History (Chronic Problems): Chronic Problems (Last Reviewed 10/10/17 @ 15:45 by Hina Minor) White coat syndrome with hypertension (Chronic) RBBB (Chronic) Premature ventricular contraction (Chronic) Nonrheumatic aortic valve insufficiency (Chronic) Atherosclerosis of coronary artery of [place] heart without angina pectoris ( Chronic) CABG x 3 EEEF-fbvo-mc-side-Mid LAD and end-to-side to the apical segment, Free ABIMAEL-OM, SVG-PDA of the RCA 08/12/2015 H/O coronary artery bypass surgery (Chronic ~08/12/15) CABG x 3 TOEW-eelc-cv-side-Mid LAD and end-to-side to the apical segment, Free ABIMAEL-OM, SVG-PDA of the RCA 08/12/2015 Non-alcoholic fatty liver disease (Chronic) Hyperlipidemia (Chronic) Hypertension (Chronic) Surgical History: coronary bypass surgery, tonsillectomy Psychiatric History: No pertinent psych hx - *Family History Maternal Family History: Family History (Last Reviewed 10/10/17 @ 15:45 by Hina Minor) Mother CAD (coronary artery disease) History Items: Heart Disease Paternal Family History: Family History (Last Reviewed 10/10/17 @ 15:45 by Hina Minor) Mother CAD (coronary artery disease) History Items: Unknown Lives: Spouse/ Significant Other Smoking Status: Never smoker Tobacco Use: Non-smoker Alcohol: None Drugs: None Review of Systems - Review of Systems General: Denies: Fever, Night Sweats, Fatigue Cardiovascular: Reports: Chest Pressure, Shortness of Breath, Shortness of Breath with Exertion. Denies: Chest Discomfort, Orthopnea, PND, Peripheral Edema, Palpitations, Lightheadedness, Dizziness, Near Syncope, Syncope Respiratory: Denies: Cough, Sputum Production, Hemoptysis Gastrointestinal: Denies: Hematemesis, Hematochezia, Melena Genitourinary: Denies: Dysuria, Hematuria Skin: Denies: Rash Subjectve: Patient sitting in bed, no acute distress Objective: Vital Signs Temp Pulse Resp BP Pulse Ox 97.6 F L 78 16 144/75 H 94 11/08/17 11:50 11/08/17 11:50 11/08/17 11:50 11/08/17 11:50 11/08/17 11:50 Oxygen Flow Rate (L/min) 2 Oxygen Delivery Method Room Air Weight: 212 lb 8.41 oz Body Mass Index (BMI) 29.4 General: Awake, Alert, Oriented x 3 HEENT: PERRL, EOMI, Sclera Non Icteric Neck: Supple, Good ROM, No Lymph Node Enlargement Lungs: Diminished Right Base Cardiovascular: Regular Rhythm, Normal S1, Normal S2, No Murmurs, No Rubs, No Gallops Vascular: No Carotid Bruits, Normal Femoral Pulses, Normal Radial Pulses, Normal Dorsalis Pedal Pulse, Normal Posterior Tibial Pulses Abdomen: Bowel Sounds Present, Soft, Non Tender, No HSM, No Organomegaly Extremities: No Cyanosis, No Clubbing, No edema Neurological: No Focal Motor or Sensory Deficit 11/08/17 03:05: Troponin I 0.249 H 11/08/17 03:30: Urine Color Straw, Urine Clarity Clear, Urine pH 7.0, Ur Specific [place] 1.005, Urine Protein Negative, Urine Glucose (UA) Normal, Urine Ketones Negative, Urine Occult Blood Negative, Urine Nitrite Negative, Urine Bilirubin Negative, Urine Urobilinogen Normal, Ur Leukocyte Esterase Negative, Urine RBC 0 SEEN, Urine WBC 0 SEEN 11/08/17 05:38: WBC 9.8, RBC 4.55 L, Hgb 13.1, Hct 39.5 L, MCV 86.8, MCH 28.8, MCHC 33.2, RDW 15.0 H, RDW Differential 47.4 H, Plt Count 350, MPV 9.2, Immature Gran % (Auto) 0.200, Neut % (Auto) 90.6 H, Lymph % (Auto) 4.3 L, [place] % (Auto) 4.8, Eos % (Auto) 0.0, Baso % (Auto) 0.1, Absolute Neuts (auto) 8.9 H, Total Counted Not Reportable 11/08/17 05:38: PT 16.2 H, INR 1.3, APTT 34.0 11/08/17 05:38: Sodium 142, Potassium 3.9, Chloride 107, Carbon Dioxide 24.0, Anion Gap 11, BUN 16, Creatinine 1.06, Est GFR (MDRD) Af Amer 90, Est GFR (MDRD ) Non-Af 75, BUN/Creatinine Ratio 15.1, Glucose 134 H, Calcium 8.5, Troponin I 0.234 H Rhythm: EKG: ECHO: Pending Stress Test: Cardiac Cath: As above PCI: CT Surgery: Holter monitor: EPS: PPM: CXR: Chest CT Scan: Assessment/Plan 1. Coronary artery disease: The patient presents with congestive heart failure symptoms, and appears to be in acute on chronic exacerbation of CHF superimposed upon pleural effusion, and non-STEMI. I recommended the patient undergo a left heart catheterization which was performed by me this afternoon which demonstrated patent grafts except for his saphenous vein graft to his RCA. His [place] RCA stenosis was corrected with 2 drug-eluting stents. His ejection fraction has diminished from 45% in the past 2 around 20% on today's exam with elevated LVEDP of approximately 23 mmHg. I recommend the patient continue baby aspirin and Brilinta for life given his [place] coronary artery disease and LV dysfunction. In addition we will continue IV diuresis to optimize his hemogram if pressures. We will add Aldactone 25 mg p.o. daily, and titrate up his Coreg. Recommend discontinuation of lisinopril given his dry hacking cough and switching him to Cozaar 50 mg p.o. daily and titrating up from there. Would recommend also Lasix IV 40 mg twice daily until he reaches his dry weight followed by 40 mg a day at least. In addition he will undergo a 1500 cc fluid restriction. If after revascularization, medical therapy, and cardiac rehab his LV function does not improve past 30%, I will refer him to Dr. Mera for prophylactic AICD therapy. At this point I would recommend holding off on intervention of his ramus intermedius disease as his distal vessels are quite small and are not accommodative to stenting. 2. Hyperlipidemia: Unfortunately the patient is unable to take statins or gemfibrozil due to allergies. 3. Discussed with Dr. Morris. Thank you very much for the opportunity to precipitate in the cardiac care of your patient. Consultation time took place between 9 and 9:30 AM. Code Visit Inpatient E&M: 26227 Init Hosp L2
[2017-11-08 15:45] LABS: CPK Total, Creatine Kinase 172 U/L (39-308)
[2017-11-08] MEDS: Nitroglycerin Infusion 250 ML 3 MG IV (15:55)
[2017-11-08] MEDS: 0.9% Normal Saline 1,000 ML 150 ML IV (15:55)
[2017-11-08] MEDS: Losartan Potassium 50 MG Tablet PO (17:36)
[2017-11-08] MEDS: Spironolactone 25 MG Tablet PO (17:36)
[2017-11-08 18:17] LABS: CPK Total, Creatine Kinase 167 U/L (39-308)
[2017-11-08 19:43] LABS: M R Staph aureus DNA By PCR Negative (Negative); Probe Check PASS; Specimen Processing Control PASS
[2017-11-08 21:41] LABS: CPK Total, Creatine Kinase 146 U/L (39-308)
[2017-11-09] VITALS (24 sets, daily range): BP systolic 111–165; BP diastolic 49–91; PULSE 62–89; RESP 14–25; TEMP 36.3–36.8; O2SAT 90–99; BMI 29.7
[2017-11-09 04:37] LABS: Absolute Lymphocyte Count 1.24 X10^3/ul (0.83-4.51); Absolute Neutrophil Count 8.6 X10^3/uL (2.0-7.7); Basophil# 0.01 X10^3/uL; Basophil% 0.1 % (0-1); Eosinophil# 0.02 X10^3/uL; Eosinophils% 0.2 % (0-5); Hematocrit 37.5 % (40-54); Hemoglobin 12.5 g/dl (13.0-16.5); Lymphocyte # 1.24 X10^3/ul (4.0); Lymphocyte % 11.7 % (19-41); Mean Corp Hgb Conc 33.3 g/gl (32-36); Mean Corpuscular Hgb 29.5 pg (27.0-32.0); Mean Corpuscular Volume 88.4 fL (80-94); Mean Platelet Vol. 9.2 fl (6.2-12.0); Monocyte# 0.75 X10^3/uL; Monocyte% 7.1 % (0-10); Neutrophil # 8.59 X10^3/uL (2.7-7.7); Neutrophil % 80.7 % (47-70); Platelet Count 340 K/mm3 (150-450); RBC Distribution Width CV 15.1 % (11.6-14.6); RBC Distribution Width SD 48.1 fl (35.1-43.9); Red Blood Count 4.24 M/mm3 (4.6-6.2); White Blood Count 10.6 K/mm3 (4.4-11.0)
[2017-11-09 04:40] LABS: POSITIVE COUNT NO; POSITIVE DIFFERENTIAL NO; POSITIVE MORPHOLOGY NO
[2017-11-09 04:52] LABS: Anion Gap 8 (5-15); BUN 22 mg/dL (7-18); BUN/Creat Ratio 17.9 RATIO (10-20); Calcium,Total 8.6 mg/dL (8.5-10.1); Chloride 109 mmol/L (98-107); Cholesterol 136 mg/dL (200); Creatinine, Serum 1.23 mg/dL (0.70-1.30); EST Glomerular Filtration Rate 63 mL/min (>60); Est Glom Filt Rate - Afr Amer 76 mL/min (>60); Estimated Creatinine Clearance 66.59 ml/min; Glucose 115 mg/dL (74-106); High Density Lipoprotein 40 mg/dL; Potassium 3.9 mmol/L (3.5-5.1); Sodium Level 145 mmol/L (136-145); Triglycerides 101 mg/dL; Very Low Density Lipoprotein 20 mg/dL (5-40)
--- NOTE | 2017-11-09 08:17 | CRPHASE1 ---
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:: Alfredo Jenkins Date/Diagnosis #1:: 11/08/17 heart cath w/ int/PCI Phase II Referral:: [facility] - former pt of [facility] cardiac rehab program and plans on attending again Risk Factors/Lifestyle Smoking Status: Never smoker Hx Hypertension: Yes - white coat syndrome Hx Diabetes Mellitus Type 1: No Hx Diabetes Mellitus Type 2: No Hx Dyslipidemia: Yes Height: 1.8 m Weight:: 96.4 kg BMI: 29.7 Stress: Long-standing ETOH: No Substance Abuse: No Family History: Family History (Last Reviewed 10/10/17 @ 15:45 by Hina Minor) Mother CAD (coronary artery disease) Family History: Heart Disease Past Cardiac Illness: Coronary Artery Disease, Coronary Artery Bypass Graft Laboratory Values: Cardiac Rehab Phase I Labs Triglycerides 101 mg/dL (-199) 11/09/17 04:30 Cholesterol 136 mg/dL (200) 11/09/17 04:30 LDL Cholesterol 76 mg/dL (0-130) 11/09/17 04:30 HDL Cholesterol 40 mg/dL (40-) 11/09/17 04:30 Phase I Education Given On:: [place], Nutrition, Antiplatelet medication, CHF, Smoking cessation, Diabetes - Type I, Diabetes - Type II Issues Affecting Care:: None Comments:: Pt attended cardiac rehab previously and is looking forward to attending again Knowledge of Condition:: Yes Hospital Course Date/LVF/EF:: 11/08/17 - EF 35% Medical/Surgical History CAD:: Yes Diabetes:: No Hypertension:: Yes - white coat syndrome Dyslipidemia:: Yes Anxiety:: Yes - stated that 'emotions' are affected at this time. CABG: Yes Discharge/Home/Social Eval Discharge Disposition: Home Marital Status:
--- NOTE | 2017-11-09 08:24 | CRPHASE1_ITS ---
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:: Alfredo Jenkins Date/Diagnosis #1:: 11/08/17 heart cath w/ int/PCI Phase II Referral:: [facility] - former pt of [facility] cardiac rehab program and plans on attending again Risk Factors/Lifestyle Smoking Status: Never smoker Hx Hypertension: Yes - white coat syndrome Hx Diabetes Mellitus Type 1: No Hx Diabetes Mellitus Type 2: No Hx Dyslipidemia: Yes Height: 1.8 m Weight:: 96.4 kg BMI: 29.7 Stress: Long-standing ETOH: No Substance Abuse: No Family History: Family History (Last Reviewed 10/10/17 @ 15:45 by Hina Minor) Mother CAD (coronary artery disease) Family History: Heart Disease Past Cardiac Illness: Coronary Artery Disease, Coronary Artery Bypass Graft Laboratory Values: Cardiac Rehab Phase I Labs Triglycerides 101 mg/dL (-199) 11/09/17 04:30 Cholesterol 136 mg/dL (200) 11/09/17 04:30 LDL Cholesterol 76 mg/dL (0-130) 11/09/17 04:30 HDL Cholesterol 40 mg/dL (40-) 11/09/17 04:30 Phase I Education Given On:: [place], Nutrition, Antiplatelet medication, CHF, Smoking cessation, Diabetes - Type I, Diabetes - Type II Issues Affecting Care:: None Comments:: Pt attended cardiac rehab previously and is looking forward to attending again Knowledge of Condition:: Yes Hospital Course Date/LVF/EF:: 11/08/17 - EF 35% Medical/Surgical History CAD:: Yes Diabetes:: No Hypertension:: Yes - white coat syndrome Dyslipidemia:: Yes Anxiety:: Yes - stated that 'emotions' are affected at this time. CABG: Yes Discharge/Home/Social Eval Discharge Disposition: Home Marital Status:
--- NOTE | 2017-11-09 08:24 | CRPH1.INSTRU ---
General Education CAD and cardiac anatomy and function:: Not instructed Explanation of diagnoses and procedures:: Not instructed Sign/Symptoms of MS:: Not instructed Antiplatelet therapy: Needs reinforcement, Not instructed Proper use of NTG-SL: Not instructed Emergency procedures and activation of EMS: Not instructed Compliance of all prescribed medications: Not instructed Smoking Patient Nicotine/Smoking Risk Factors Are:: Never smoked Dyslipidemia Dyslipidemia Response Code:: Not instructed Overweight/Obesity Patient Overweight/Obesity Risk Factors Are:: Obesity - > or = 30 Overweight/Obesity:: Not instructed Hypertension Hypertension:: Not instructed - Pt states that he has documented white coat syndrome Heart Disease Patient Heart Disease Risk Factors Are:: Family history of heart disease < 65 years old, Previous cardiac event Heart Disease Response Code:: Not instructed Diabetes Patient Diabetes Risk Factors Are:: No documented hx of diabetes Metabolic Syndrome Metabolic Syndrome Response Code:: Not instructed Sedentary Sedentary Response Code:: Not instructed Stress Stress Response Code:: Patient communicates acknowledgment, Needs reinforcement
--- NOTE | 2017-11-09 08:27 | CRPH1.INST_ITS ---
General Education CAD and cardiac anatomy and function:: Not instructed Explanation of diagnoses and procedures:: Not instructed Sign/Symptoms of RI:: Not instructed Antiplatelet therapy: Needs reinforcement, Not instructed Proper use of NTG-SL: Not instructed Emergency procedures and activation of EMS: Not instructed Compliance of all prescribed medications: Not instructed Smoking Patient Nicotine/Smoking Risk Factors Are:: Never smoked Dyslipidemia Dyslipidemia Response Code:: Not instructed Overweight/Obesity Patient Overweight/Obesity Risk Factors Are:: Obesity - > or = 30 Overweight/Obesity:: Not instructed Hypertension Hypertension:: Not instructed - Pt states that he has documented white coat syndrome Heart Disease Patient Heart Disease Risk Factors Are:: Family history of heart disease < 65 years old, Previous cardiac event Heart Disease Response Code:: Not instructed Diabetes Patient Diabetes Risk Factors Are:: No documented hx of diabetes Metabolic Syndrome Metabolic Syndrome Response Code:: Not instructed Sedentary Sedentary Response Code:: Not instructed Stress Stress Response Code:: Patient communicates acknowledgment, Needs reinforcement
[2017-11-09] MEDS: TICAGRELOR 90 MG TABLET PO ×2 (08:36→22:03)
[2017-11-09] MEDS: Spironolactone 25 MG Tablet PO (08:36)
[2017-11-09] MEDS: Furosemide 40 MG/4 ML Vial IV ×2 (08:36→18:32)
[2017-11-09] MEDS: Losartan Potassium 50 MG Tablet PO (08:36)
[2017-11-09] MEDS: Carvedilol 3.125 MG TABLET PO ×2 (08:36→22:03)
[2017-11-09] MEDS: Aspirin E.C. 81 MG Tablet PO (08:36)
[2017-11-09] MEDS: 0.9% NaCl Peripheral Flush Adult/Peds IV ×2 (08:41→18:33)
--- NOTE | 2017-11-09 08:41 | PCM.PROGNOTE ---
Subjective: Chief complaint: Follow-up after admission for acute on chronic systolic CHF and non-ST elevation [place]. Patient seen and examined. No acute events overnight. He mentioned that his breathing is getting better. Denied chest pain, palpitation, dizziness or lightheadedness. His blood pressure still slightly elevated, other vitals are stable and he is maintaining pulse ox on room air. - Physical Exam General: Alert, Oriented x3, Cooperative, No apparent distress HEENT: Atraumatic, PERRLA, EOMI, Normocephalic Oral: Moist Mucosa, No Gingival or Mucosal Lesions/ Ulcerations Neck: Supple, No JVD, Negative Carotid Bruits, Trachea Midline, Thyroid Normal Size and Texture Lungs: Clear to auscultation, No rhonchi, No wheeze, No rales, Diminished Cardiovascular: Regular rate, Regular Rhythm, Normal S1, Normal S2, No murmurs Abdomen: Bowel Sounds Present, Soft, Non Tender, Non-Distended, No Hepato-splenomegaly Extremities: No clubbing, No cyanosis, No edema Skin: No rashes, No breakdown Lymphatic: No Cervical, Supraclavicular, or Inguinal Adenopathy Neurological: Cranial nerves II-XII grossly intact, Motor Exam 5/5 strength throughout Psych/Mental Status: Normal Affect, Appropriate, Alert and oriented to time, place, person, mood and affect Vital Signs Temp Pulse Resp BP Pulse Ox 98.2 F 73 19 H 161/87 H 98 11/09/17 04:00 11/09/17 08:00 11/09/17 08:00 11/09/17 08:00 11/09/17 08:00 Oxygen Flow Rate (L/min) 2 Oxygen Delivery Method Room Air Weight: 212 lb 8.41 oz Body Mass Index (BMI) 29.4 Intake and Output for Last 24 Hours 11/07/17 11/08/17 11/09/17 23:59 23:59 23:59 Intake Total 1427 / 1427 / 32 Output Total 2710 / 2710 Balance -1283 / -1283 Laboratory Tests Past 24 Hrs 11/08/17 11/08/17 11/08/17 14:29 15:15 16:42 WBC RBC Hgb Hct MCV MCH MCHC RDW RDW Differential Plt Count MPV Immature Gran % (Auto) Neut % (Auto) Lymph % (Auto) [place] % (Auto) Eos % (Auto) Baso % (Auto) Absolute Neuts (auto) Absolute Lymphs (auto) Total Counted Activated Clotting Time 169 H Sodium Potassium Chloride Carbon Dioxide Anion Gap BUN Creatinine Estim Creat Clear Calc Est GFR (MDRD) Af Amer Est GFR (MDRD) Non-Af BUN/Creatinine Ratio Glucose Calcium Total Creatine Kinase 172 Triglycerides Cholesterol LDL Cholesterol VLDL Cholesterol HDL Cholesterol MRSA (PCR) Negative 11/08/17 11/08/17 11/09/17 17:50 21:20 04:30 WBC 10.6 RBC 4.24 L Hgb 12.5 L Hct 37.5 L MCV 88.4 MCH 29.5 MCHC 33.3 RDW 15.1 H RDW Differential 48.1 H Plt Count 340 MPV 9.2 Immature Gran % (Auto) 0.200 Neut % (Auto) 80.7 H Lymph % (Auto) 11.7 L [place] % (Auto) 7.1 Eos % (Auto) 0.2 Baso % (Auto) 0.1 Absolute Neuts (auto) 8.6 H Absolute Lymphs (auto) 1.24 Total Counted Not Reportable Activated Clotting Time Sodium Potassium Chloride Carbon Dioxide Anion Gap BUN Creatinine Estim Creat Clear Calc Est GFR (MDRD) Af Amer Est GFR (MDRD) Non-Af BUN/Creatinine Ratio Glucose Calcium Total Creatine Kinase 167 146 Triglycerides Cholesterol LDL Cholesterol VLDL Cholesterol HDL Cholesterol MRSA (PCR) 11/09/17 04:30 WBC RBC Hgb Hct MCV MCH MCHC RDW RDW Differential Plt Count MPV Immature Gran % (Auto) Neut % (Auto) Lymph % (Auto) [place] % (Auto) Eos % (Auto) Baso % (Auto) Absolute Neuts (auto) Absolute Lymphs (auto) Total Counted Activated Clotting Time Sodium 145 Potassium 3.9 Chloride 109 H Carbon Dioxide 28.0 Anion Gap 8 BUN 22 H Creatinine 1.23 Estim Creat Clear Calc 66.59 Est GFR (MDRD) Af Amer 76 Est GFR (MDRD) Non-Af 63 BUN/Creatinine Ratio 17.9 Glucose 115 H Calcium 8.6 Total Creatine Kinase Triglycerides 101 Cholesterol 136 LDL Cholesterol 76 VLDL Cholesterol 20 HDL Cholesterol 40 MRSA (PCR) Clinical Impression(s) from Imaging Studies Chest CTA 11/07/17 23:13 IMPRESSION: No evidence of pulmonary embolism. Bilateral pleural effusions larger on the right side. No focal infiltrate is seen. Mild atelectatic changes. Electronically Signed: Gabe Madsen MD at 0:15 EDT Tel , Service support , Chest X-Ray 11/08/17 05:55 IMPRESSION: Mild residual CHF although there has been a moderate degree of improvement as compared to prior study. Electronically Signed: Gerber Jovel MD at 8:54 EDT Tel [phone], Service support , Medical Necessity - Tobacco Use Smoking Status: Never smoker Tobacco Use: Non-smoker Assessment/Plan This is a 62 years old male patient presented to the emergency department upon request from his PCP because of shortness of breath and elevated troponin, found to have acute non-ST elevation OH, acute on chronic systolic CHF, status post cardiac catheterization, PTCA and drug-eluting stent to RCA. #1 acute non-ST elevation OH: Status post cardiac catheterization, PTCA and drug-eluting stent to RCA. Ejection fraction is 25% on cardiac cath and 30-55% on 2D echocardiogram. He is on aspirin, Brilinta, beta blockers and losartan. He is allergic to statins. Symptoms improved, the short of breath. His blood pressure still elevated, other vital signs are stable. Cardiology on the case. Plan to continue same treatment. #2 acute on chronic systolic CHF/ischemic cardiomyopathy: He is on IV Lasix, on Coreg and losartan as well as Aldactone. Shortness of breath improved, maintaining pulse ox on room air. Lungs are clear to auscultation. Plan to continue same treatment. #3 CAD status post CABG: Plan as above, continue aspirin, beta blockers, losartan and Brilinta. #4 hypertension: Blood pressure slightly elevated, may need to adjust his medication or add another new antihypertensive medication. #5 hyperlipidemia: He is allergic to statins. #6 DVT prophylaxis: Start subcu Lovenox. This note was generated with Snabbotek[employer] software. It may contain incorrect words, spelling, and punctuation that were not noted in checking the note before signing.
--- NOTE | 2017-11-09 08:42 | PCM.PN.BLA ---
Progress Note Patient is scheduled for a post hospital follow-up with Norris Britton Nurse Practitioner, at the [facility] on 12/29/2017 at 9:00. He should contact our office if this appointment needs rescheduled or any concerning cardiac issues.
--- NOTE | 2017-11-09 08:45 | PN_ITS ---
Progress Note Patient is scheduled for a post hospital follow-up with Norris Britton Nurse Practitioner, at the [facility] on 12/29/2017 at 9:00. He should contact our office if this appointment needs rescheduled or any concerning cardiac issues.
--- NOTE | 2017-11-09 08:48 | PN_ITS ---
Subjective: Chief complaint: Follow-up after admission for acute on chronic systolic CHF and non-ST elevation [place]. Patient seen and examined. No acute events overnight. He mentioned that his breathing is getting better. Denied chest pain, palpitation, dizziness or lightheadedness. His blood pressure still slightly elevated, other vitals are stable and he is maintaining pulse ox on room air. - Physical Exam General: Alert, Oriented x3, Cooperative, No apparent distress HEENT: Atraumatic, PERRLA, EOMI, Normocephalic Oral: Moist Mucosa, No Gingival or Mucosal Lesions/ Ulcerations Neck: Supple, No JVD, Negative Carotid Bruits, Trachea Midline, Thyroid Normal Size and Texture Lungs: Clear to auscultation, No rhonchi, No wheeze, No rales, Diminished Cardiovascular: Regular rate, Regular Rhythm, Normal S1, Normal S2, No murmurs Abdomen: Bowel Sounds Present, Soft, Non Tender, Non-Distended, No Hepato- splenomegaly Extremities: No clubbing, No cyanosis, No edema Skin: No rashes, No breakdown Lymphatic: No Cervical, Supraclavicular, or Inguinal Adenopathy Neurological: Cranial nerves II-XII grossly intact, Motor Exam 5/5 strength throughout Psych/Mental Status: Normal Affect, Appropriate, Alert and oriented to time, place, person, mood and affect Vital Signs Temp Pulse Resp BP Pulse Ox 98.2 F 73 19 H 161/87 H 98 11/09/17 04:00 11/09/17 08:00 11/09/17 08:00 11/09/17 08:00 11/09/17 08:00 Oxygen Flow Rate (L/min) 2 Oxygen Delivery Method Room Air Weight: 212 lb 8.41 oz Body Mass Index (BMI) 29.4 Intake and Output for Last 24 Hours 11/07/17 11/08/17 11/09/17 23:59 23:59 23:59 Intake Total 1427 / 1427 / 32 Output Total 2710 / 2710 Balance -1283 / -1283 Laboratory Tests Past 24 Hrs 11/08/17 11/08/17 11/08/17 14:29 15:15 16:42 WBC RBC Hgb Hct MCV MCH MCHC RDW RDW Differential Plt Count MPV Immature Gran % (Auto) Neut % (Auto) Lymph % (Auto) [place] % (Auto) Eos % (Auto) Baso % (Auto) Absolute Neuts (auto) Absolute Lymphs (auto) Total Counted Activated Clotting Time 169 H Sodium Potassium Chloride Carbon Dioxide Anion Gap BUN Creatinine Estim Creat Clear Calc Est GFR (MDRD) Af Amer Est GFR (MDRD) Non-Af BUN/Creatinine Ratio Glucose Calcium Total Creatine Kinase 172 Triglycerides Cholesterol LDL Cholesterol VLDL Cholesterol HDL Cholesterol MRSA (PCR) Negative 11/08/17 11/08/17 11/09/17 17:50 21:20 04:30 WBC 10.6 RBC 4.24 L Hgb 12.5 L Hct 37.5 L MCV 88.4 MCH 29.5 MCHC 33.3 RDW 15.1 H RDW Differential 48.1 H Plt Count 340 MPV 9.2 Immature Gran % (Auto) 0.200 Neut % (Auto) 80.7 H Lymph % (Auto) 11.7 L [place] % (Auto) 7.1 Eos % (Auto) 0.2 Baso % (Auto) 0.1 Absolute Neuts (auto) 8.6 H Absolute Lymphs (auto) 1.24 Total Counted Not Reportable Activated Clotting Time Sodium Potassium Chloride Carbon Dioxide Anion Gap BUN Creatinine Estim Creat Clear Calc Est GFR (MDRD) Af Amer Est GFR (MDRD) Non-Af BUN/Creatinine Ratio Glucose Calcium Total Creatine Kinase 167 146 Triglycerides Cholesterol LDL Cholesterol VLDL Cholesterol HDL Cholesterol MRSA (PCR) 11/09/17 04:30 WBC RBC Hgb Hct MCV MCH MCHC RDW RDW Differential Plt Count MPV Immature Gran % (Auto) Neut % (Auto) Lymph % (Auto) [place] % (Auto) Eos % (Auto) Baso % (Auto) Absolute Neuts (auto) Absolute Lymphs (auto) Total Counted Activated Clotting Time Sodium 145 Potassium 3.9 Chloride 109 H Carbon Dioxide 28.0 Anion Gap 8 BUN 22 H Creatinine 1.23 Estim Creat Clear Calc 66.59 Est GFR (MDRD) Af Amer 76 Est GFR (MDRD) Non-Af 63 BUN/Creatinine Ratio 17.9 Glucose 115 H Calcium 8.6 Total Creatine Kinase Triglycerides 101 Cholesterol 136 LDL Cholesterol 76 VLDL Cholesterol 20 HDL Cholesterol 40 MRSA (PCR) Clinical Impression(s) from Imaging Studies Chest CTA 11/07/17 23:13 IMPRESSION: No evidence of pulmonary embolism. Bilateral pleural effusions larger on the right side. No focal infiltrate is seen. Mild atelectatic changes. Electronically Signed: Gabe Madsen MD at 0:15 EDT Tel , Service support , Chest X-Ray 11/08/17 05:55 IMPRESSION: Mild residual CHF although there has been a moderate degree of improvement as compared to prior study. Electronically Signed: Gerber Jovel MD at 8:54 EDT Tel [phone], Service support , Medical Necessity - Tobacco Use Smoking Status: Never smoker Tobacco Use: Non-smoker Assessment/Plan This is a 62 years old male patient presented to the emergency department upon request from his PCP because of shortness of breath and elevated troponin, found to have acute non-ST elevation [place], acute on chronic systolic CHF, status post cardiac catheterization, PTCA and drug-eluting stent to RCA. #1 acute non-ST elevation AL: Status post cardiac catheterization, PTCA and drug -eluting stent to RCA. Ejection fraction is 25% on cardiac cath and 30-55% on 2D echocardiogram. He is on aspirin, Brilinta, beta blockers and losartan. He is allergic to statins. Symptoms improved, the short of breath. His blood pressure still elevated, other vital signs are stable. Cardiology on the case. Plan to continue same treatment. #2 acute on chronic systolic CHF/ischemic cardiomyopathy: He is on IV Lasix, on Coreg and losartan as well as Aldactone. Shortness of breath improved, maintaining pulse ox on room air. Lungs are clear to auscultation. Plan to continue same treatment. #3 CAD status post CABG: Plan as above, continue aspirin, beta blockers, losartan and Brilinta. #4 hypertension: Blood pressure slightly elevated, may need to adjust his medication or add another new antihypertensive medication. #5 hyperlipidemia: He is allergic to statins. #6 DVT prophylaxis: Start subcu Lovenox. This note was generated with [employer] software. It may contain incorrect words, spelling, and punctuation that were not noted in checking the note before signing.
--- NOTE | 2017-11-09 12:58 | PCM.PN.CARD ---
Subjectve: Patient doing very well this morning, still with some minor abdominal edema, right groin is clean/dry/intact. No chest pain. Telemetry negative. EKG shows normal sinus rhythm, no acute changes. CKs negative. Hemoglobin and creatinine within nominal limits. Objective: Vital Signs Temp Pulse Resp BP Pulse Ox 97.5 F L 70 18 114/58 L 93 11/09/17 10:00 11/09/17 11:00 11/09/17 11:00 11/09/17 11:00 11/09/17 11:00 Oxygen Flow Rate (L/min) 2 Oxygen Delivery Method Room Air Weight: 212 lb 8.41 oz Body Mass Index (BMI) 29.4 Intake and Output for Last 24 Hours 11/07/17 11/08/17 11/09/17 23:59 23:59 23:59 Intake Total 1427 / 1427 532 / 532 Output Total 2710 / 2710 400 / 400 Balance -1283 / -1283 132 / 132 General: Awake, Alert, Oriented x 3 HEENT: PERRL, EOMI, Sclera Non Icteric Neck: Supple, Good ROM, No Lymph Node Enlargement Lungs: Clear to auscultation, Rales - Right Base Cardiovascular: Regular Rhythm, Normal S1, Normal S2, No Rubs, No Gallops Murmur Murmur: Grade 2/6, Early Diastolic Vascular: No Carotid Bruits, Normal Femoral Pulses, Normal Radial Pulses, Normal Dorsalis Pedal Pulse, Normal Posterior Tibial Pulses Abdomen: Bowel Sounds Present, Soft, Non Tender, No HSM, No Organomegaly Extremities: No Cyanosis, No Clubbing, No edema Neurological: No Focal Motor or Sensory Deficit 11/09/17 04:30: WBC 10.6, RBC 4.24 L, Hgb 12.5 L, Hct 37.5 L, MCV 88.4, MCH 29.5, MCHC 33.3, RDW 15.1 H, RDW Differential 48.1 H, Plt Count 340, MPV 9.2, Immature Gran % (Auto) 0.200, Neut % (Auto) 80.7 H, Lymph % (Auto) 11.7 L, [place] % (Auto) 7.1, Eos % (Auto) 0.2, Baso % (Auto) 0.1, Absolute Neuts (auto) 8.6 H, Total Counted Not Reportable 11/09/17 04:30: Sodium 145, Potassium 3.9, Chloride 109 H, Carbon Dioxide 28.0, Anion Gap 8, BUN 22 H, Creatinine 1.23, Est GFR (MDRD) Af Amer 76, Est GFR (MDRD) Non-Af 63, BUN/Creatinine Ratio 17.9, Glucose 115 H, Calcium 8.6, Triglycerides 101, Cholesterol 136, LDL Cholesterol 76, VLDL Cholesterol 20, HDL Cholesterol 40 Rhythm: EKG: ECHO: Stress Test: Cardiac Cath: PCI: CT Surgery: Holter monitor: EPS: PPM: CXR: Chest CT Scan: Medical Necessity - Tobacco Use Smoking Status: Never smoker Tobacco Use: Non-smoker Assessment/Plan 1. Coronary artery disease: The patient presents with congestive heart failure symptoms, and appears to be in acute on chronic exacerbation of CHF superimposed upon pleural effusion, and non-STEMI. I recommended the patient undergo a left heart catheterization which was performed by me this afternoon which demonstrated patent grafts except for his saphenous vein graft to his RCA. His [place] RCA stenosis was corrected with 2 drug-eluting stents. His ejection fraction has diminished from 45% in the past 2 around 20% on today's exam with elevated LVEDP of approximately 23 mmHg. I recommend the patient continue baby aspirin and Brilinta for life given his [place] coronary artery disease and LV dysfunction. In addition we will continue IV diuresis for 1 more day to optimize his HTN and pulmonary pressures. We will add Aldactone 25 mg p.o. daily, and titrate up his Coreg. Recommend discontinuation of lisinopril given his dry hacking cough and switching him to Cozaar 50 mg p.o. daily and titrating up from there. Would recommend also Lasix IV 40 mg twice daily for 1 more day until he reaches his dry weight followed by 40 mg a day at least. In addition he will undergo a 1500 cc fluid restriction. If after revascularization, medical therapy, and cardiac rehab his LV function does not improve past 30%, I will refer him to Dr. Núñez for prophylactic AICD therapy. At this point I would recommend holding off on intervention of his ramus intermedius disease as his distal vessels are quite small and are not accommodative to stenting. Patient may ambulate through the unit today in anticipation for discharge tomorrow. 2. Hyperlipidemia: Unfortunately the patient is unable to take statins or gemfibrozil due to allergies. 3. Discussed with Dr. Morris. Thank you very much for the opportunity to precipitate in the cardiac care of your patient. Anticipate discharge home tomorrow morning. Code Visit Inpatient E&M: 94428 Subs Hosp L2
--- NOTE | 2017-11-09 13:01 | PN.CARD_ITS ---
Subjectve: Patient doing very well this morning, still with some minor abdominal edema, right groin is clean/dry/intact. No chest pain. Telemetry negative. EKG shows normal sinus rhythm, no acute changes. CKs negative. Hemoglobin and creatinine within nominal limits. Objective: Vital Signs Temp Pulse Resp BP Pulse Ox 97.5 F L 70 18 114/58 L 93 11/09/17 10:00 11/09/17 11:00 11/09/17 11:00 11/09/17 11:00 11/09/17 11:00 Oxygen Flow Rate (L/min) 2 Oxygen Delivery Method Room Air Weight: 212 lb 8.41 oz Body Mass Index (BMI) 29.4 Intake and Output for Last 24 Hours 11/07/17 11/08/17 11/09/17 23:59 23:59 23:59 Intake Total 1427 / 1427 532 / 532 Output Total 2710 / 2710 400 / 400 Balance -1283 / -1283 132 / 132 General: Awake, Alert, Oriented x 3 HEENT: PERRL, EOMI, Sclera Non Icteric Neck: Supple, Good ROM, No Lymph Node Enlargement Lungs: Clear to auscultation, Rales - Right Base Cardiovascular: Regular Rhythm, Normal S1, Normal S2, No Rubs, No Gallops Murmur Murmur: Grade 2/6, Early Diastolic Vascular: No Carotid Bruits, Normal Femoral Pulses, Normal Radial Pulses, Normal Dorsalis Pedal Pulse, Normal Posterior Tibial Pulses Abdomen: Bowel Sounds Present, Soft, Non Tender, No HSM, No Organomegaly Extremities: No Cyanosis, No Clubbing, No edema Neurological: No Focal Motor or Sensory Deficit 11/09/17 04:30: WBC 10.6, RBC 4.24 L, Hgb 12.5 L, Hct 37.5 L, MCV 88.4, MCH 29.5 , MCHC 33.3, RDW 15.1 H, RDW Differential 48.1 H, Plt Count 340, MPV 9.2, Immature Gran % (Auto) 0.200, Neut % (Auto) 80.7 H, Lymph % (Auto) 11.7 L, [place] % (Auto) 7.1, Eos % (Auto) 0.2, Baso % (Auto) 0.1, Absolute Neuts (auto) 8.6 H, Total Counted Not Reportable 11/09/17 04:30: Sodium 145, Potassium 3.9, Chloride 109 H, Carbon Dioxide 28.0, Anion Gap 8, BUN 22 H, Creatinine 1.23, Est GFR (MDRD) Af Amer 76, Est GFR (MDRD ) Non-Af 63, BUN/Creatinine Ratio 17.9, Glucose 115 H, Calcium 8.6, Triglycerides 101, Cholesterol 136, LDL Cholesterol 76, VLDL Cholesterol 20, HDL Cholesterol 40 Rhythm: EKG: ECHO: Stress Test: Cardiac Cath: PCI: CT Surgery: Holter monitor: EPS: PPM: CXR: Chest CT Scan: Medical Necessity - Tobacco Use Smoking Status: Never smoker Tobacco Use: Non-smoker Assessment/Plan 1. Coronary artery disease: The patient presents with congestive heart failure symptoms, and appears to be in acute on chronic exacerbation of CHF superimposed upon pleural effusion, and non-STEMI. I recommended the patient undergo a left heart catheterization which was performed by me this afternoon which demonstrated patent grafts except for his saphenous vein graft to his RCA. His [place] RCA stenosis was corrected with 2 drug-eluting stents. His ejection fraction has diminished from 45% in the past 2 around 20% on today's exam with elevated LVEDP of approximately 23 mmHg. I recommend the patient continue baby aspirin and Brilinta for life given his [place] coronary artery disease and LV dysfunction. In addition we will continue IV diuresis for 1 more day to optimize his HTN and pulmonary pressures. We will add Aldactone 25 mg p.o. daily, and titrate up his Coreg. Recommend discontinuation of lisinopril given his dry hacking cough and switching him to Cozaar 50 mg p.o. daily and titrating up from there. Would recommend also Lasix IV 40 mg twice daily for 1 more day until he reaches his dry weight followed by 40 mg a day at least. In addition he will undergo a 1500 cc fluid restriction. If after revascularization, medical therapy, and cardiac rehab his LV function does not improve past 30%, I will refer him to Dr. Núñez for prophylactic AICD therapy. At this point I would recommend holding off on intervention of his ramus intermedius disease as his distal vessels are quite small and are not accommodative to stenting. Patient may ambulate through the unit today in anticipation for discharge tomorrow. 2. Hyperlipidemia: Unfortunately the patient is unable to take statins or gemfibrozil due to allergies. 3. Discussed with Dr. Morris. Thank you very much for the opportunity to precipitate in the cardiac care of your patient. Anticipate discharge home tomorrow morning. Code Visit Inpatient E&M: [id number] Subs Hosp L2
--- NOTE | 2017-11-09 14:45 | EKG12_ITS ---
Test Reason : AM EKG Blood Pressure : / mmHG Vent. Rate : 072 BPM Atrial Rate : 072 BPM P-R Int : 166 ms QRS Dur : 104 ms QT Int : 466 ms P-R-T Axes : 073 067 108 degrees QTc Int : 510 ms Normal sinus rhythm Nonspecific ST and T wave abnormality Prolonged QT Abnormal ECG When compared with ECG of 08-NOV-2017 15:08, MANUAL COMPARISON REQUIRED, DATA IS UNCONFIRMED Confirmed by EMILY GUY, DAYANA ([id number]), production editor WANG AMAYA ([id number]) on 11/10/2017 10:04:27 AM Referred By: Cliff Pardo Confirmed By:DAYANA DIAZ MD
[2017-11-10 03:00] VITALS: PULSE 57
[2017-11-10 04:08] LABS: Anion Gap 7 (5-15); BUN 29 mg/dL (7-18); BUN/Creat Ratio 26.4 RATIO (10-20); Calcium,Total 8.5 mg/dL (8.5-10.1); Chloride 108 mmol/L (98-107); EST Glomerular Filtration Rate 71 mL/min (>60); Est Glom Filt Rate - Afr Amer 86 mL/min (>60); Estimated Creatinine Clearance 70.05 ml/min; Glucose 126 mg/dL (74-106); Potassium 3.9 mmol/L (3.5-5.1); Sodium Level 142 mmol/L (136-145)
[2017-11-10 04:23] VITALS: BP 151/87; PULSE 72; RESP 20; TEMP 36.6; O2SAT 99
[2017-11-10 06:50] VITALS: O2SAT 96
[2017-11-10] MEDS: Furosemide 40 MG Tablet PO (07:38)
[2017-11-10] MEDS: Aspirin E.C. 81 MG Tablet PO (07:38)
[2017-11-10] MEDS: Losartan Potassium 50 MG Tablet PO (07:40)
[2017-11-10] MEDS: TICAGRELOR 90 MG TABLET PO (07:40)
[2017-11-10] MEDS: Carvedilol 3.125 MG TABLET PO (07:40)
[2017-11-10 07:44] VITALS: PULSE 70
[2017-11-10] MEDS: Spironolactone 25 MG Tablet PO (07:44)
--- NOTE | 2017-11-10 08:27 | PCM.DC ---
You will use the following diet at home:: Cardiac Your food should be the consistency of: Regular Discharge Activity: Return to Normal Activity Weight Bearing Status: Weight bearing as tolerated Call your doctor if you observe: Fever of 101 or Higher, Shortness of breath, Dizziness, Fainting spells, Swelling in the ankles, Chest pain, Increased palpitations (irregular heartbeat), Uncontrolled pain Instructions: Discharge Instructions for Heart Failure Allergies/Adverse Reactions: Allergies pravastatin sodium [From Pravachol] Allergy (Verified 11/07/17 22:18) Unknown atorvastatin calcium [From Lipitor] Adverse Reaction (Verified 11/07/17 22:18) Pain in joints gemfibrozil Adverse Reaction (Verified 11/07/17 22:18) myalgia Medications to take at Discharge aspirin 81 mg tablet,delayed release 81 mg PO DAILY 05/24/17 carvedilol 3.125 mg tablet 3.125 mg PO BID #180 tab 05/24/17 Furosemide [Lasix] 40 mg PO DAILY #90 tab 11/10/17 Losartan Potassium [Cozaar] 50 mg PO BID #90 tab 11/10/17 Spironolactone [Aldactone] 25 mg PO DAILY #30 tab 11/10/17 Ticagrelor [Brilinta] 90 mg PO BID #90 tab 11/10/17 The following prescriptions were given: Furosemide [Lasix] 40 mg PO DAILY #90 tab Spironolactone [Aldactone] 25 mg PO DAILY #30 tab Losartan Potassium [Cozaar] 50 mg PO BID #90 tab Ticagrelor [Brilinta] 90 mg PO BID #90 tab Primary Care Physician: Cliff Pardo Chi, MD [Primary Care Provider] - Please follow up with your Primary Care Physician in: 1 week. Please Follow Up With: Alfredo Jenkins MD When: as scheduled.
--- NOTE | 2017-11-10 09:06 | PCM.PN.CARD ---
Subjectve: Patient doing very well this morning, feels much better much less bloating, ambulating well. Right groin is clean/dry/intact. No chest pain. Telemetry negative. Hemoglobin and creatinine within nominal limits. Objective: Vital Signs Temp Pulse Resp BP Pulse Ox 97.8 F 70 20 H 151/87 H 96 11/10/17 04:23 11/10/17 07:44 11/10/17 04:23 11/10/17 04:23 11/10/17 06:50 Oxygen Flow Rate (L/min) 2 Oxygen Delivery Method Room Air Weight: 211 lb 10.3 oz Body Mass Index (BMI) 29.4 Intake and Output for Last 24 Hours 11/08/17 11/09/17 11/10/17 23:59 23:59 23:59 Intake Total 1427 / 1427 1332 / 1332 350 / 350 Output Total 2710 / 2710 2575 / 2575 1999 Balance -1283 / -1283 -1243 / -1243 -1650 / -1650 General: Awake, Alert, Oriented x 3 HEENT: PERRL, EOMI, Sclera Non Icteric Neck: Supple, Good ROM, No Lymph Node Enlargement Lungs: Clear to auscultation Cardiovascular: Regular Rhythm, Normal S1, Normal S2, No Murmurs, No Rubs, No Gallops Vascular: No Carotid Bruits, Normal Femoral Pulses, Normal Radial Pulses, Normal Dorsalis Pedal Pulse, Normal Posterior Tibial Pulses Abdomen: Bowel Sounds Present, Soft, Non Tender, No HSM, No Organomegaly Extremities: No Cyanosis, No Clubbing, No edema Neurological: No Focal Motor or Sensory Deficit 11/10/17 03:45: Sodium 142, Potassium 3.9, Chloride 108 H, Carbon Dioxide 27.0, Anion Gap 7, BUN 29 H, Creatinine 1.10, Est GFR (MDRD) Af Amer 86, Est GFR (MDRD) Non-Af 71, BUN/Creatinine Ratio 26.4 H, Glucose 126 H, Calcium 8.5 Rhythm: EKG: ECHO: Stress Test: Cardiac Cath: PCI: CT Surgery: Holter monitor: EPS: PPM: CXR: Chest CT Scan: Medical Necessity - Tobacco Use Smoking Status: Never smoker Tobacco Use: Non-smoker Assessment/Plan 1. Coronary artery disease: The patient presents with congestive heart failure symptoms, and appears to be in acute on chronic exacerbation of CHF superimposed upon pleural effusion, and non-STEMI. I recommended the patient undergo a left heart catheterization which was performed by me this afternoon which demonstrated patent grafts except for his saphenous vein graft to his RCA. His [place] RCA stenosis was corrected with 2 drug-eluting stents. His ejection fraction has diminished from 45% in the past 2 around 20% on today's exam with elevated LVEDP of approximately 23 mmHg. I recommend the patient continue baby aspirin and Brilinta for life given his [place] coronary artery disease and LV dysfunction. In addition we will continue IV diuresis for 1 more day to optimize his HTN and pulmonary pressures. We will add Aldactone 25 mg p.o. daily, and titrate up his Coreg. Recommend increasing his Cozaar to 50 mg p.o. twice daily for better blood pressure control. Will discontinue IV Lasix as his abdominal bloating has resolved, he has no edema, and is crackles of markedly improved in his lungs. We will start him on Lasix 40 mg p.o. daily. In addition he will undergo a 1500 cc fluid restriction. If after revascularization, medical therapy, and cardiac rehab his LV function does not improve past 30%, I will refer him to Dr. Núñez for prophylactic AICD therapy. At this point I would recommend holding off on intervention of his ramus intermedius disease as his distal vessels are quite small and are not accommodative to stenting. 2. Hyperlipidemia: Unfortunately the patient is unable to take statins or gemfibrozil due to allergies. 3. Discussed with Dr. Morris. Thank you very much for the opportunity to precipitate in the cardiac care of your patient. Patient may be discharged home today. He will follow-up with me in the office per protocol. Code Visit Inpatient E&M: 77273 Subs Hosp L2
--- NOTE | 2017-11-10 09:09 | PN.CARD_ITS ---
Subjectve: Patient doing very well this morning, feels much better much less bloating, ambulating well. Right groin is clean/dry/intact. No chest pain. Telemetry negative. Hemoglobin and creatinine within nominal limits. Objective: Vital Signs Temp Pulse Resp BP Pulse Ox 97.8 F 70 20 H 151/87 H 96 11/10/17 04:23 11/10/17 07:44 11/10/17 04:23 11/10/17 04:23 11/10/17 06:50 Oxygen Flow Rate (L/min) 2 Oxygen Delivery Method Room Air Weight: 211 lb 10.3 oz Body Mass Index (BMI) 29.4 Intake and Output for Last 24 Hours 11/08/17 11/09/17 11/10/17 23:59 23:59 23:59 Intake Total 1427 / 1427 1332 / 1332 350 / 350 Output Total 2710 / 2710 2575 / 2575 1999 Balance -1283 / -1283 -1243 / -1243 -1650 / -1650 General: Awake, Alert, Oriented x 3 HEENT: PERRL, EOMI, Sclera Non Icteric Neck: Supple, Good ROM, No Lymph Node Enlargement Lungs: Clear to auscultation Cardiovascular: Regular Rhythm, Normal S1, Normal S2, No Murmurs, No Rubs, No Gallops Vascular: No Carotid Bruits, Normal Femoral Pulses, Normal Radial Pulses, Normal Dorsalis Pedal Pulse, Normal Posterior Tibial Pulses Abdomen: Bowel Sounds Present, Soft, Non Tender, No HSM, No Organomegaly Extremities: No Cyanosis, No Clubbing, No edema Neurological: No Focal Motor or Sensory Deficit 11/10/17 03:45: Sodium 142, Potassium 3.9, Chloride 108 H, Carbon Dioxide 27.0, Anion Gap 7, BUN 29 H, Creatinine 1.10, Est GFR (MDRD) Af Amer 86, Est GFR (MDRD ) Non-Af 71, BUN/Creatinine Ratio 26.4 H, Glucose 126 H, Calcium 8.5 Rhythm: EKG: ECHO: Stress Test: Cardiac Cath: PCI: CT Surgery: Holter monitor: EPS: PPM: CXR: Chest CT Scan: Medical Necessity - Tobacco Use Smoking Status: Never smoker Tobacco Use: Non-smoker Assessment/Plan 1. Coronary artery disease: The patient presents with congestive heart failure symptoms, and appears to be in acute on chronic exacerbation of CHF superimposed upon pleural effusion, and non-STEMI. I recommended the patient undergo a left heart catheterization which was performed by me this afternoon which demonstrated patent grafts except for his saphenous vein graft to his RCA. His [place] RCA stenosis was corrected with 2 drug-eluting stents. His ejection fraction has diminished from 45% in the past 2 around 20% on today's exam with elevated LVEDP of approximately 23 mmHg. I recommend the patient continue baby aspirin and Brilinta for life given his [place] coronary artery disease and LV dysfunction. In addition we will continue IV diuresis for 1 more day to optimize his HTN and pulmonary pressures. We will add Aldactone 25 mg p.o. daily, and titrate up his Coreg. Recommend increasing his Cozaar to 50 mg p.o. twice daily for better blood pressure control. Will discontinue IV Lasix as his abdominal bloating has resolved, he has no edema, and is crackles of markedly improved in his lungs. We will start him on Lasix 40 mg p.o. daily. In addition he will undergo a 1500 cc fluid restriction. If after revascularization, medical therapy, and cardiac rehab his LV function does not improve past 30%, I will refer him to Dr. Núñez for prophylactic AICD therapy. At this point I would recommend holding off on intervention of his ramus intermedius disease as his distal vessels are quite small and are not accommodative to stenting. 2. Hyperlipidemia: Unfortunately the patient is unable to take statins or gemfibrozil due to allergies. 3. Discussed with Dr. Morris. Thank you very much for the opportunity to precipitate in the cardiac care of your patient. Patient may be discharged home today. He will follow-up with me in the office per protocol. Code Visit Inpatient E&M: 01523 Subs Hosp L2
[2017-11-10 09:19] VITALS: BP 143/62; PULSE 76; RESP 16; TEMP 36.7; O2SAT 94
--- NOTE | 2017-11-10 10:00 | EKG12_ITS ---
Test Reason : AM EKG Blood Pressure : / mmHG Vent. Rate : 065 BPM Atrial Rate : 065 BPM P-R Int : 166 ms QRS Dur : 102 ms QT Int : 468 ms P-R-T Axes : 065 027 106 degrees QTc Int : 486 ms Normal sinus rhythm ST & T wave abnormality, consider lateral ischemia Prolonged QT Abnormal ECG When compared with ECG of 09-NOV-2017 04:59, MANUAL COMPARISON REQUIRED, DATA IS UNCONFIRMED Confirmed by EMILY GUY, DAYANA ([id number]), fashion editor ASHLEY DALTON ([id number]) on 11/13/2017 3:15:47 PM Referred By: Cliff Pardo Confirmed By:DAYANA DIAZ MD
--- NOTE | 2017-11-10 11:54 | PCM.DC.SUM ---
Discharge Date and Diagnosis Date of Admission: 11/08/17 Date of Discharge: 11/10/17 - Primary Discharge Diagnosis #1 acute non-ST elevation [place], status post cardiac cath, PTCA and drug-eluting stent to RCA. #2 acute on chronic systolic CHF/ischemic cardiomyopathy. - Secondary Discharge Diagnosis Chronic Problems (Last Reviewed 10/10/17 @ 15:45 by Hina Minor) White coat syndrome with hypertension (Chronic) RBBB (Chronic) Premature ventricular contraction (Chronic) Nonrheumatic aortic valve insufficiency (Chronic) Atherosclerosis of coronary artery of [place] heart without angina pectoris (Chronic) CABG x 3 UPNX-kutz-jy-side-Mid LAD and end-to-side to the apical segment, Free ABIMAEL-OM, SVG-PDA of the RCA 08/12/2015 H/O coronary artery bypass surgery (Chronic ~08/12/15) CABG x 3 NMQA-kcaq-co-side-Mid LAD and end-to-side to the apical segment, Free ABIMAEL-OM, SVG-PDA of the RCA 08/12/2015 Non-alcoholic fatty liver disease (Chronic) Hyperlipidemia (Chronic) Hypertension (Chronic) Hospital Course and Treatment Imaging Results: Clinical Impression(s) from Imaging Studies Chest CTA 11/07/17 23:13 IMPRESSION: No evidence of pulmonary embolism. Bilateral pleural effusions larger on the right side. No focal infiltrate is seen. Mild atelectatic changes. Electronically Signed: Gabe Madsen MD at 0:15 EDT Tel , Service support , Chest X-Ray 11/08/17 05:55 IMPRESSION: Mild residual CHF although there has been a moderate degree of improvement as compared to prior study. Electronically Signed: Gerber Jovel MD at 8:54 EDT Tel [phone], Service support , Dr. Jenkins, cardiology. Procedures: 2-D Echocardiogram, Cardiac catheterization, EKG Summary of Care Provided: Patient seen and examined on the day of discharge and appeared to be stable to be discharged home. He has normal symptoms, no more shortness of breath. Denied chest pain. Vital signs are stable. - Physical Exam General: Alert, Oriented x3, Cooperative, No apparent distress. HEENT: Atraumatic, PERRLA, EOMI. Neck: Supple, No JVD, Negative Carotid Bruits, Trachea Midline, Thyroid Normal. Lungs: Clear to auscultation, Normal air movement, No rhonchi, No wheeze, No rales. Cardiovascular: Regular rate, Regular Rhythm, Normal S1, Normal S2, PMI Normal. Abdomen: Bowel Sounds Present, Soft, Non Tender, Non-Distended, No Hepato-splenomegaly. Extremities: No clubbing, No cyanosis, No edema Skin: No rashes, No breakdown Neurological: Neuro grossly intact Vital Signs are stable. Hospital course: The patient is a 62 year old M who was sent by his PCP because of shortness of breath and he was found to have borderline elevated troponin and blood work that was done and that they he was diagnosed with acute non-ST elevation [place] as well as acute on chronic systolic CHF. His EKG revealed no significant acute ischemic changes. His troponin was borderline elevated and flat. His chest x-ray showed findings consistent with acute CHF. He was treated with IV Lasix for diuresis, started on Cozaar, Aldactone and continued on Coreg for standard treatment for CHF. He underwent cardiac catheterization on the was found to have single-vessel disease to RCA status post PTCA and drug-eluting stent to RCA. 2D echocardiogram revealed ejection fraction of 30-35% and on cardiac catheterization, his ejection fraction was 25%. With IV Lasix for diuresis, patient symptoms improved and his respiratory status stabilized as well as his volume status. His vital signs were stable throughout admission. Cardiology stated that patient may need to have prophylactic ICD placed in the future if medical therapy failed to improve his ejection fraction. Patient discharged home in a stable medical condition, discharged on aspirin, Brilinta, Coreg, losartan, Lasix and Aldactone, he was not started on CHRIS inhibitors because he is allergic to CHRIS inhibitors, recommended follow-up with PCP in 1 week and follow-up with cardiology according to Dr. Jenkins recommendation. Discharge Activity: Return to Normal Activity Weight Bearing Status: Weight bearing as tolerated Call your doctor if you observe: Fever of 101 or Higher, Shortness of breath, Dizziness, Fainting spells, Swelling in the ankles, Chest pain, Increased palpitations (irregular heartbeat), Uncontrolled pain Home Medications: Medications to take at Discharge aspirin 81 mg tablet,delayed release 81 mg PO DAILY 05/24/17 carvedilol 3.125 mg tablet 3.125 mg PO BID #180 tab 05/24/17 Furosemide [Lasix] 40 mg PO DAILY #90 tab 11/10/17 Losartan Potassium [Cozaar] 50 mg PO BID #90 tab 11/10/17 Spironolactone [Aldactone] 25 mg PO DAILY #30 tab 11/10/17 Ticagrelor [Brilinta] 90 mg PO BID #90 tab 11/10/17 Following Prescrptions Were Given to Patient: Furosemide [Lasix] 40 mg PO DAILY #90 tab Spironolactone [Aldactone] 25 mg PO DAILY #30 tab Losartan Potassium [Cozaar] 50 mg PO BID #90 tab Ticagrelor [Brilinta] 90 mg PO BID #90 tab Primary Care Physician: Cliff Pardo Chi, MD [Primary Care Provider] - Please follow up with your Primary Care Physician in: 1 week. Please Follow Up With: Alfredo Jenkins MD When: as scheduled. Patient Instructions: Discharge Instructions for Heart Failure Disposition: Home Minutes spent on discharge:: 32 Patient Condition:: Stable Medical Necessity - Tobacco Use Smoking Status: Never smoker Tobacco Use: Non-smoker Meaningful Use Info Meaningful Use Diagnoses (Choose all that apply): CHF - CHF CHRIS/ARB ordered at discharge?: Yes Documented LVEF (%): 30 Code Visit Inpatient E&M: 38472 Disch Hosp
--- NOTE | 2017-11-10 12:02 | DS.PCM_ITS ---
Discharge Date and Diagnosis Date of Admission: 11/08/17 Date of Discharge: 11/10/17 - Primary Discharge Diagnosis #1 acute non-ST elevation [place], status post cardiac cath, PTCA and drug-eluting stent to RCA. #2 acute on chronic systolic CHF/ischemic cardiomyopathy. - Secondary Discharge Diagnosis Chronic Problems (Last Reviewed 10/10/17 @ 15:45 by Hina Minor) White coat syndrome with hypertension (Chronic) RBBB (Chronic) Premature ventricular contraction (Chronic) Nonrheumatic aortic valve insufficiency (Chronic) Atherosclerosis of coronary artery of [place] heart without angina pectoris ( Chronic) CABG x 3 JCLW-wpkf-hy-side-Mid LAD and end-to-side to the apical segment, Free ABIMAEL-OM, SVG-PDA of the RCA 08/12/2015 H/O coronary artery bypass surgery (Chronic ~08/12/15) CABG x 3 MRLP-yuzk-rv-side-Mid LAD and end-to-side to the apical segment, Free ABIMAEL-OM, SVG-PDA of the RCA 08/12/2015 Non-alcoholic fatty liver disease (Chronic) Hyperlipidemia (Chronic) Hypertension (Chronic) Hospital Course and Treatment Imaging Results: Clinical Impression(s) from Imaging Studies Chest CTA 11/07/17 23:13 IMPRESSION: No evidence of pulmonary embolism. Bilateral pleural effusions larger on the right side. No focal infiltrate is seen. Mild atelectatic changes. Electronically Signed: Gabe Madsen MD at 0:15 EDT Tel , Service support , Chest X-Ray 11/08/17 05:55 IMPRESSION: Mild residual CHF although there has been a moderate degree of improvement as compared to prior study. Electronically Signed: Gerber Jovel MD at 8:54 EDT Tel [phone], Service support , Dr. Jenkins, cardiology. Procedures: 2-D Echocardiogram, Cardiac catheterization, EKG Summary of Care Provided: Patient seen and examined on the day of discharge and appeared to be stable to be discharged home. He has normal symptoms, no more shortness of breath. Denied chest pain. Vital signs are stable. - Physical Exam General: Alert, Oriented x3, Cooperative, No apparent distress. HEENT: Atraumatic, PERRLA, EOMI. Neck: Supple, No JVD, Negative Carotid Bruits, Trachea Midline, Thyroid Normal. Lungs: Clear to auscultation, Normal air movement, No rhonchi, No wheeze, No rales. Cardiovascular: Regular rate, Regular Rhythm, Normal S1, Normal S2, PMI Normal. Abdomen: Bowel Sounds Present, Soft, Non Tender, Non-Distended, No Hepato- splenomegaly. Extremities: No clubbing, No cyanosis, No edema Skin: No rashes, No breakdown Neurological: Neuro grossly intact Vital Signs are stable. Hospital course: The patient is a 62 year old M who was sent by his PCP because of shortness of breath and he was found to have borderline elevated troponin and blood work that was done and that they he was diagnosed with acute non-ST elevation [place] as well as acute on chronic systolic CHF. His EKG revealed no significant acute ischemic changes. His troponin was borderline elevated and flat. His chest x- ray showed findings consistent with acute CHF. He was treated with IV Lasix for diuresis, started on Cozaar, Aldactone and continued on Coreg for standard treatment for CHF. He underwent cardiac catheterization on the was found to have single-vessel disease to RCA status post PTCA and drug-eluting stent to RCA. 2D echocardiogram revealed ejection fraction of 30-35% and on cardiac catheterization, his ejection fraction was 25%. With IV Lasix for diuresis, patient symptoms improved and his respiratory status stabilized as well as his volume status. His vital signs were stable throughout admission. Cardiology stated that patient may need to have prophylactic ICD placed in the future if medical therapy failed to improve his ejection fraction. Patient discharged home in a stable medical condition, discharged on aspirin, Brilinta, Coreg, losartan, Lasix and Aldactone, he was not started on CHRIS inhibitors because he is allergic to CHRIS inhibitors, recommended follow-up with PCP in 1 week and follow-up with cardiology according to Dr. Jenkins recommendation. Discharge Activity: Return to Normal Activity Weight Bearing Status: Weight bearing as tolerated Call your doctor if you observe: Fever of 101 or Higher, Shortness of breath, Dizziness, Fainting spells, Swelling in the ankles, Chest pain, Increased palpitations (irregular heartbeat), Uncontrolled pain Home Medications: Medications to take at Discharge aspirin 81 mg tablet,delayed release 81 mg PO DAILY 05/24/17 carvedilol 3.125 mg tablet 3.125 mg PO BID #180 tab 05/24/17 Furosemide [Lasix] 40 mg PO DAILY #90 tab 11/10/17 Losartan Potassium [Cozaar] 50 mg PO BID #90 tab 11/10/17 Spironolactone [Aldactone] 25 mg PO DAILY #30 tab 11/10/17 Ticagrelor [Brilinta] 90 mg PO BID #90 tab 11/10/17 Following Prescrptions Were Given to Patient: Furosemide [Lasix] 40 mg PO DAILY #90 tab Spironolactone [Aldactone] 25 mg PO DAILY #30 tab Losartan Potassium [Cozaar] 50 mg PO BID #90 tab Ticagrelor [Brilinta] 90 mg PO BID #90 tab Primary Care Physician: Cliff Pardo Chi, MD [Primary Care Provider] - Please follow up with your Primary Care Physician in: 1 week. Please Follow Up With: Alrfedo Jenkins MD When: as scheduled. Patient Instructions: Discharge Instructions for Heart Failure Disposition: Home Minutes spent on discharge:: 32 Patient Condition:: Stable Medical Necessity - Tobacco Use Smoking Status: Never smoker Tobacco Use: Non-smoker Meaningful Use Info Meaningful Use Diagnoses (Choose all that apply): CHF - CHF CHRIS/ARB ordered at discharge?: Yes Documented LVEF (%): 30 Code Visit Inpatient E&M: 90281 Disch Hosp
== END 2017-11-10 10:03 | disposition home or self-care (01) | DRG 246 ==
LOC: ED 23:22 → PCU 11-08 01:54 → ICU 11-08 14:37
PROVIDERS: Internal Medicine Cardiovascular Disease; Admitting Provider Internal Medicine; Emergency Provider Emergency Medicine; Family Provider Family Medicine Geriatric Medicine; PCP Family Medicine Geriatric Medicine; Visit Provider Hospitalist
DX: I21.4 Non-ST elevation (NSTEMI) myocardial infarction (principal); I50.23 Acute on chronic systolic (congestive) heart failure; I11.0 Hypertensive heart disease with heart failure; I25.5 Ischemic cardiomyopathy; I45.10 Unspecified right bundle-branch block; I25.10 Atherosclerotic heart disease of native coronary artery without angina pectoris; K76.0 Fatty (change of) liver, not elsewhere classified; I35.1 Nonrheumatic aortic (valve) insufficiency; Z95.1 Presence of aortocoronary bypass graft; E78.5 Hyperlipidemia, unspecified
CPT/HCPCS: 36415; 71045; 71275; 80048; 80061; 81001; 82550; 84484; 85025; 85347; 85610; 85730; 87641; 92928; 93005; 93306; 93459; 99285; C1760; J7030; Q9967; A4216; C1725; C1769; C1874; C1887; C1894; C9600; J1940

== ENCOUNTER → 2017-11-23 06:55 | Outpatient (CLI) | payer OTHER, SELFPAY ==
[2017-11-09 08:24] VITALS: BMI 29.7
--- NOTE | 2017-11-23 10:49 | PCM.CR.ITP ---
General Information - General Information Admitting Diagnosis: PCI w/coronary stent placement 11/08/2017 - Education/Goals Barriers to Learning: None, Vision Impairment Individual Counseling: Initial Assessment: Abnormal Cholesterol Levels, High Blood Pressure, Sedentary Lifestyle Cardiac Rehabilitation Goals: 1. Maintain the individual as the primary focus of care. 2. To improve the patient's quality of life. 3. Identification of cardiac risk factors and provide cardiac risk factor management. 4. Enhance the psychosocial status of the patient. 5. Reconditioning enough to allow the patient to resume customary activities. 6. Control symptoms of cardiac disease Scale for measuring improvement of personal goals: Enter appropriate number in Comments. 2 = Unchanged. 3 = Slightly Better. 4 = Moderate Improvement. 5 = Met my Goal Personal Goals: Initial Assessment: Improve energy level, Participate in home exercise program, Get back to work, or to resume activities faster, Improve muscle strength and endurance Exercise - Initial Assessment - Visit Date of Eval: 11/23/17 - established ITP; start on - Stages of Change Stages of Change:: Action - Exercise Prescription Mode:: Treadmill, Rower, Airdyne Angina with exercise?: No Target Heart Rate:: 109-117 - Hypertension Do any of the following apply?: Yes, Medication, Diet Resting Blood Pressure:: 138/88 - pt states left arm typically runs higher. - Intervention Home Exercise/Activity Goal:: Moderate Exercise 30 min/day x 5 days/wk - Education Goals:: Warm-up, RPE JAIR Scale, S/S, Safe Exercise, Self-Monitoring - Exercise Program Goals Exercise Program Goals: Aerobic Activity >30 min Nutrition - Initial Assessment - Program Goals Nutrition Program Goals: LDL <70. Total Cholesterol <200. HDL >45. Triglycerides <150. HgbA1C <7%. BMI <25 - Visit Date of Assessment:: 11/23/17 - Stages of Change Stages of Change:: Action - Diabetes Diabetes:: No Insulin: No Non-Insulin Dependent?: No Do you monitor your blood sugar at home?: No - Weight Management Height: 6 ft Weight:: 209 lb Body Fat %:: 28.5 - Intervention Referral to dietitian:: No Referral to Diabetic Clinic:: No Will attend diet classes:: Yes - Education Gave educational materials for:: Healthy eating Tobacco - Initial Assessment - Program Goals Tobacco Program Goals: Complete smoking cessation. Attend education classes. Improve Knowledge Test score - Stage of Change Stages of Change:: Action - Learning Barriers Learning Barriers: Vision - reading glasses., Cognitive - some issues cognitively since surg, karma with numbers., Ready to Learn - Family Support Do you have family support?: Yes - Tobacco Use Tobacco Use: Non-smoker - Intervention Education Schedule Given:: Yes - Education Gave educational material for:: Coronary artery disease, Risk factors, Sexuality, Medical compliance, Cardiac A&P, Angina signs & symptoms Psychosocial - Initial Assess - Target Goals Target Goals: Assess presence or absence of depression. Using a valid screening tool, maximizes coping skills. Positive support system - Stages of Change Stages of Change:: Action - Psychosocial Test Tool Used:: HANDS Depression Questionnaire - Intervention PS - Interventions: Yes Attend Stress Management Classes, Yes Uses Stress Management Skills, No Referral to Mental Health, No Referral to [facility] Case Management, No Referral to Physician - Education Gave educational materials for:: Coping techniques, Signs & symptoms of depression, Stress management, Relaxation techniques - Patient/Program Goal Preventative Medication(s):: Aspirin, Clopidogrel, Beta nilson, Statin/lipid - Assistive Devices Assistive Devices:: None Fall Risk Assessed:: Yes Patient Health Questionnaire Initial Assessment 1. Little interest or pleasure in doing things: Several days 2. Feeling down, depressed, or hopeless: Not at all 3. Trouble falling or staying asleep, or sleeping too much: Several days 4. Feeling tired or having little energy: More than half the days 5. Poor appetite or overeating: Not at all 6. Feeling bad about yourself -- or that you are a failure or have let yourself or your family down: Not at all 7. Trouble concentrating on things, such as reading the newspaper or watching television: Several days 8. Moving or speaking so slowly that other people could have noticed. Or the opposite - being so fidgety or restless that you have been moving around a lot more than usual: Not at all 9. Thoughts that you would be better off , or of hurting yourself in some way: Not at all How difficult have these problems made it for you to do your work, take care of things at home, or get along with other people?: Not difficult at all Total Score: 5 BUSTER-Q SV Test - Statements CAD is a disease of the arteries in the heart: False Examples of risk factors for heart disease: True Angina is chest pain or discomfort: True The benefits of resistance training include: True Eating more meat and dairy products: False Anti-platelet medications such as aspirin are important: True The only effective way to manage stress: False An exercise warm-up slowly increases heart rate: True Prepared, processed foods usually have high sodium: True Depression is common after a heart attack: True The statin medications lower cholesterol: True To control blood pressure, lower the amount of sodium: True If someone gets chest discomfort during walking: False Transfats are partially hydrogenated vegetable oils: True Sleep apnea that is not treated increases the risk: False To control cholesterol, one should become a vegetarian: False Someone knows if he/she is exercising at the right level: True Diabetes cannot be prevented with exercise & health eating: False Stress is a large risk for heart attack: True A diet that can help lower blood pressure is rich in: True - Total Score Total Correct Responses: 20 Self-Efficacy Initial Assessment We would like to know how confident you are in doing certain activities. Please select your confidence level for:: Select your confidence level for the following using the scale 1-10 where 1 is not at all confident and 10 is totally confident. Your score is the average of all 6 responses. Fatigue: How confident are you that you can keep the fatigue caused by your disease from interfering with the things you want to do? Select Number: 10 Physical Discomfort or Pain: How confident are you that you can keep the physical discomfort or pain of your disease from interfering with the things you want to do? Select Number: 10 Emotional Distress: How confident are you that you can keep the emotional distress caused by your disease from interfering with the things you want to do? Select Number: 10 Other Symptoms or Health Problems: How confident are you that you can keep other symptoms or health problems from interfering with the things you want to do? Select Number: 10 Different Tasks and Activities: How confident are you that you can do the different tasks and activities needed to manage your health condition so as to reduce your need to see a doctor? Select Number: 10 Medication: How confident are you that you can do things other than just taking medication to reduce how much your illness affects your everyday life? Select Number: 10 Total Score:: 10 Nutrition Survey - Nutrition Survey Instructions Scoring Instructions: Scoring is as follows: Yes = 1 points. No = 0 point. Patient score that is >/=12 is considered to be at potential nutritional risk and could benefit from a referral to a registered dietitian. - Nutrition Survey Initial Have you lost >10 lbs over the past 2 months without trying?: Yes - related to the use of lasix medications; dehydrated. Are you following a special diet at home for diabetes, low fat, or low salt?: No Are you interested in meeting with a dietitian for help understanding your diet?: No Do you eat less than 3 meals a day?: Yes Do you eat fatty meats (harris, sausage, ribs, etc), fried foods, desserts, large amounts of salad dressings, margarine, butter, or cheese most days?: No Do you have food allergies? [Enter types in comment field]: No Do you eat in restaurants more than 3 times a week?: No Do you season food with salt, seasoning salt, or garlic salt?: No Do you used canned, boxed, frozen meals, or soups, seasoning packets?: No Total Score:: 2
--- NOTE | 2017-11-23 10:50 | PCM.CR.HP2 ---
CR - History & Physical - General Arrival date:: 11/23/17 Arrival time:: 10:50 Date of Referral:: 11/13/17 Date of CR Evaluation:: 11/23/17 Referring Physician: Dr. Alfredo Jenkins Primary Diagnosis: Coronary stent placement - History of Present Cardiac Event Onset Date: Enter Onset Date of cardiac illnesses in Comment field below Coronary Artery Bypass Graft:: Yes - 07/2015 PTCA or coronary stenting:: Yes - 11/08/2017 Type of Symptoms:: shortness of breath, chose to do an elective left heart cath and subsequently found one of the bypass grafts occulded and stent was placed. Interventions with present event:: left heart cath w/coroanry stent placement Were there any complications?: none - Medications Home Medications: Ambulatory Orders Medication Instructions Recorded aspirin 81 mg tablet,delayed 81 mg PO DAILY 05/24/17 release carvedilol 3.125 mg tablet 3.125 mg PO BID #180 tab 05/24/17 Losartan Potassium [Cozaar] 50 mg PO BID #90 tab 11/10/17 Spironolactone [Aldactone] 25 mg PO DAILY #30 tab 11/10/17 Ticagrelor [Brilinta] 90 mg PO BID #90 tab 11/10/17 - Allergies Allergies/Adverse Reactions: Allergies pravastatin sodium [From Pravachol] Allergy (Verified 11/07/17 22:18) Unknown atorvastatin calcium [From Lipitor] Adverse Reaction (Verified 11/07/17 22:18) Pain in joints gemfibrozil Adverse Reaction (Verified 11/07/17 22:18) myalgia - Sleep Disorder Evaluation Hx of Sleep Apnea: No Do you snore loudly (louder than talking or can be heard through closed doors)?: No Do you often feel tired/ fatigued/ sleepy during daytime?: Yes - do now Has anyone observed you stop breathing during sleep?: No History of Hypertension (for STOP score): Yes STOP Results: Positive Advanced Directives - Advanced Directives Power of Pack Master: Yes - is P.O.A. for healthcare Living Will: Yes Advance Directives on File: No DNR Order?:: No - MOLST See MOLST form: No Past Medical History - Past Medical Illness Medical History: Past Medical History (Last Updated 11/13/17 @ 11:40 by Hina Minor) Atherosclerosis of coronary artery bypass graft without angina pectoris (Acute) 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 Non-ST elevation (NSTEMI) myocardial infarction (Acute) I21.4 White coat syndrome with hypertension (Chronic) I10 RBBB (Chronic) I45.10 Premature ventricular contraction (Chronic) I49.3 Nonrheumatic aortic valve insufficiency (Chronic) I35.1 Atherosclerosis of coronary artery of [place] heart without angina pectoris (Chronic) I25.10 PCI-ERROL-RCA w/ 3.0 x 20 and 3.0 x 38 mm Promus 11/08/17 CABG x 3 TLIW-tami-rq-side-Mid LAD and end-to-side to the apical segment, Free ABIMAEL-OM, SVG-PDA of the RCA 08/12/2015 Non-alcoholic fatty liver disease (Chronic) K76.0 Hyperlipidemia (Chronic) E78.5 Hypertension (Chronic) I10 - Past Surgical History Surgical History: Past Surgical History (Last Reviewed 10/10/17 @ 15:45 by Hina Minor) H/O right coronary artery stent placement (Acute) Onset Date: 11/08/17 Z95.5 PCI-ERROL-RCA w/ 3.0 x 20 and 3.0 x 38 mm Promus 11/08/17 H/O coronary artery bypass surgery (Chronic) Onset Date: ~08/12/15 Z95.1 CABG x 3 LCZF-yytb-jh-side-Mid LAD and end-to-side to the apical segment, Free ABIMAEL-OM, SVG-PDA of the RCA 08/12/2015 History of esophagogastroduodenoscopy (EGD) Onset Date: ~2014 Z98.890 Surgical History: coronary bypass surgery, tonsillectomy - Family History Summary Family History: Family History (Last Reviewed 10/10/17 @ 15:45 by Hina Minor) Mother CAD (coronary artery disease) Social History - Smoking History Smoking Status: Never smoker Hx Tobacco Use: No Hx Smoking Exposure: No - Alcohol Use Alcohol Usage: No - Substance Abuse Hx Substance Use: No - Occupation 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):: 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 - Hobbies, Recreation, Social Activities Hobbies: Walking, Other - hiking, flying (pilots license), Recreational Activities: I am able to engage in most, but not all activities Social Environment - Status Marital Status: - Current Living Arrangements Living Environment:: Spouse - Children How many children do you have?: 3 Do any of your children live nearby?: Yes - 2 in [place], 1 in [place] - Safety Do you feel safe in your surroundings?: Yes - Assistance Do you need any assistance at home?: none Review of Systems - Review of Systems Hints: Right click = Denies ([place]). Left click = Reports ([place]) Review of Present Symptoms: Reports: Dizziness/Lightheadedness - associated with dehyrdation, Fatigue - associated with dehydration from lasix., Appetite - Normal, Appetite - Special Diet - vegetables, well balanced diet, fiber, fruits, Sleep - Normal. Denies: Shortness of Breath at Rest, Shortness of Breath with Exertion, Sexual Changes - Pain Is Patient Pain Free?: Yes Pain Location: none Pain Level: 0/10 Risk Factor Assessment - Chief Complaint Chief Complaint: Patient is a 62 year ofl makle patient of Dr. Jenkins's who presents to cardiac rehabilitation today following recent PTCA and stent palcement procedure done on 11/08/2017. Patient had a multi-vessel bypass in 2016 and just recently began having repeat symptoms and associated shortness of breath. Patient was seen by Dr. Jenkins adn decision to repeat leaft heart cath was made, subsequently lead to a stent placement in one of the bypass grafts. - Vital Signs Temperature: 98.7 F Respiratory Rate: 16 Pulse Ox: 98 Blood Pressure: 136/88 Nailbeds:: pink - Pulse Pulse Rate: 64 - Hypertension Blood Pressure Sitting - Left Arm: 136/88 - left arms typically runs higher per patient - Obesity Height: 6 ft Weight:: 209 lb Weight in Pounds: 209.0 lbs Weight Source: Standing Scale Body Mass Index (BMI): 28.3 Nutritional Referral for Obesity: No - Physical Inactivity Physical Inactivity: None - For Smoking Smoking Risk Guidelines: Smoking Low Risk: None or quit greater than 6 months ago. Smoking Moderate Risk: Smoker or quit 6 months or less ago. Smoking High Risk: Smoker - For Dyslipidemia Dyslipidemia Risk Guidelines: Low Risk: Moderate Risk: High Risk: 15-25% fat 25.1-29% fat >/= 30% fat. <7% sat fat 7-9% sat fat >9% sat fat. <150 mg chol 150-299 mg chol >/= 300 mg chol. LDL <100 LDL 100-129 LDL >/= 130. Chol/HDL ratio <5.0 Chol/HDL ratio 5.0-6.0 Chol/HDL ratio >6.0. Triglycerides <100 Triglycerides 100-149 Triglycerides >/= 150 - For Diabetes Mellitus Diabetes Risk Guidelines: Diabetes Low Risk: HgA1c <6.5% and/or FBG <120. Diabetes Moderate Risk: HgA1c 6.6-7.9% and/or FBG 120-180. Diabetes High Risk: HgA1c >/= 8% and/or FBG >180 - For Obesity/Overweight Obesity/Overweight Risk Guidelines: Obesity Low Risk: BMI <25.0. Obesity Moderate Risk: BMI 25-29.9. Obesity High Risk: BMI >/= 30.0 - For Hypertension Hypertension Risk Guidelines: Hypertension Low Risk: Systolic <120 and Diastolic <80. Hypertension Moderate Risk: Systolic 120-139 and Diastolic 80-89. Hypertension High Risk: Systolic >/= 140 and Diastolic >/= 90 - For Sedentary Lifestyle Sedentary Lifestyle Risk Guidelines: Sedentary Lifestyle Low Risk: >/= 1,500 kcal/week. Sedentary Lifestyle Moderate Risk: 700-1,499 kcal/week. Sedentary Lifestyle High Risk: < 700 kcal/week - For Depression Depression Risk Guidelines: Depression Low Risk: Not clinically depressed. Depression Moderate Risk: Mildly depressed. Depression High Risk: Clinically depressed - Family History Family History: Family History (Last Reviewed 10/10/17 @ 15:45 by Hina Minor) Mother CAD (coronary artery disease) Motivation - Motivation to Participate On a scale of 1 to 10, how prepared are you to commit to attending program?: 10 What do you see as barriers to successfully being able to complete the program?: none aware of. What do you see as the benefits of succesfully completing the program? In other words, what do you hope to get out of participating in the program?: getting back in shape, getting heart healthy again, increase function. Are there issues you are dealing with that will interfere with completing the program?: none Do you have a spouse or signficant other, family or friends who will help support you to complete the program?: yes.
--- NOTE | 2017-11-23 11:01 | CR.HP_ITS ---
CR - History & Physical - General Arrival date:: 11/23/17 Arrival time:: 10:50 Date of Referral:: 11/13/17 Date of CR Evaluation:: 11/23/17 Referring Physician: Dr. Alfredo Jenkins Primary Diagnosis: Coronary stent placement - History of Present Cardiac Event Onset Date: Enter Onset Date of cardiac illnesses in Comment field below Coronary Artery Bypass Graft:: Yes - 07/2015 PTCA or coronary stenting:: Yes - 11/08/2017 Type of Symptoms:: shortness of breath, chose to do an elective left heart cath and subsequently found one of the bypass grafts occulded and stent was placed. Interventions with present event:: left heart cath w/coroanry stent placement Were there any complications?: none - Medications Home Medications: Ambulatory Orders Medication Instructions Recorded aspirin 81 mg tablet,delayed 81 mg PO DAILY 05/24/17 release carvedilol 3.125 mg tablet 3.125 mg PO BID #180 tab 05/24/17 Losartan Potassium [Cozaar] 50 mg PO BID #90 tab 11/10/17 Spironolactone [Aldactone] 25 mg PO DAILY #30 tab 11/10/17 Ticagrelor [Brilinta] 90 mg PO BID #90 tab 11/10/17 - Allergies Allergies/Adverse Reactions: Allergies pravastatin sodium [From Pravachol] Allergy (Verified 11/07/17 22:18) Unknown atorvastatin calcium [From Lipitor] Adverse Reaction (Verified 11/07/17 22:18) Pain in joints gemfibrozil Adverse Reaction (Verified 11/07/17 22:18) myalgia - Sleep Disorder Evaluation Hx of Sleep Apnea: No Do you snore loudly (louder than talking or can be heard through closed doors)? : No Do you often feel tired/ fatigued/ sleepy during daytime?: Yes - do now Has anyone observed you stop breathing during sleep?: No History of Hypertension (for STOP score): Yes STOP Results: Positive Advanced Directives - Advanced Directives Power of [employer]ary [employer]anner: Yes - is P.O.A. for healthcare Living Will: Yes Advance Directives on File: No DNR Order?:: No - MOLST See MOLST form: No Past Medical History - Past Medical Illness Medical History: Past Medical History (Last Updated 11/13/17 @ 11:40 by Hina Minor) Atherosclerosis of coronary artery bypass graft without angina pectoris (Acute) 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 Non-ST elevation (NSTEMI) myocardial infarction (Acute) I21.4 White coat syndrome with hypertension (Chronic) I10 RBBB (Chronic) I45.10 Premature ventricular contraction (Chronic) I49.3 Nonrheumatic aortic valve insufficiency (Chronic) I35.1 Atherosclerosis of coronary artery of [place] heart without angina pectoris ( Chronic) I25.10 PCI-ERROL-RCA w/ 3.0 x 20 and 3.0 x 38 mm Promus 11/08/17 CABG x 3 CDGA-ekdz-fm-side-Mid LAD and end-to-side to the apical segment, Free ABIMAEL-OM, SVG-PDA of the RCA 08/12/2015 Non-alcoholic fatty liver disease (Chronic) K76.0 Hyperlipidemia (Chronic) E78.5 Hypertension (Chronic) I10 - Past Surgical History Surgical History: Past Surgical History (Last Reviewed 10/10/17 @ 15:45 by Hina Minor) H/O right coronary artery stent placement (Acute) Onset Date: 11/08/17 Z95.5 PCI-ERROL-RCA w/ 3.0 x 20 and 3.0 x 38 mm Promus 11/08/17 H/O coronary artery bypass surgery (Chronic) Onset Date: ~08/12/15 Z95.1 CABG x 3 UVEP-zwrk-tc-side-Mid LAD and end-to-side to the apical segment, Free ABIMAEL-OM, SVG-PDA of the RCA 08/12/2015 History of esophagogastroduodenoscopy (EGD) Onset Date: ~2014 Z98.890 Surgical History: coronary bypass surgery, tonsillectomy - Family History Summary Family History: Family History (Last Reviewed 10/10/17 @ 15:45 by Hina Minor) Mother CAD (coronary artery disease) Social History - Smoking History Smoking Status: Never smoker Hx Tobacco Use: No Hx Smoking Exposure: No - Alcohol Use Alcohol Usage: No - Substance Abuse Hx Substance Use: No - Occupation 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):: Employed 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 - Hobbies, Recreation, Social Activities Hobbies: Walking, Other - hiking, flying (pilots license), Recreational Activities: I am able to engage in most, but not all activities Social Environment - Status Marital Status: - Current Living Arrangements Living Environment:: Spouse - Children How many children do you have?: 3 Do any of your children live nearby?: Yes - 2 in [facility], 1 in [place] - Safety Do you feel safe in your surroundings?: Yes - Assistance Do you need any assistance at home?: none Review of Systems - Review of Systems Hints: Right click = Denies ([place]). Left click = Reports ([place]) Review of Present Symptoms: Reports: Dizziness/Lightheadedness - associated with dehyrdation, Fatigue - associated with dehydration from lasix., Appetite - Normal, Appetite - Special Diet - vegetables, well balanced diet, fiber, fruits , Sleep - Normal. Denies: Shortness of Breath at Rest, Shortness of Breath with Exertion, Sexual Changes - Pain Is Patient Pain Free?: Yes Pain Location: none Pain Level: 0/10 Risk Factor Assessment - Chief Complaint Chief Complaint: Patient is a 62 year ofl makle patient of Dr. Jenkins's who presents to cardiac rehabilitation today following recent PTCA and stent palcement procedure done on 11/08/2017. Patient had a multi-vessel bypass in 2016 and just recently began having repeat symptoms and associated shortness of breath. Patient was seen by Dr. Jenkins adn decision to repeat [place] heart cath was made, subsequently lead to a stent placement in one of the bypass grafts. - Vital Signs Temperature: 98.7 F Respiratory Rate: 16 Pulse Ox: 98 Blood Pressure: 136/88 Nailbeds:: pink - Pulse Pulse Rate: 64 - Hypertension Blood Pressure Sitting - Left Arm: 136/88 - left arms typically runs higher per patient - Obesity Height: 6 ft Weight:: 209 lb Weight in Pounds: 209.0 lbs Weight Source: Standing Scale Body Mass Index (BMI): 28.3 Nutritional Referral for Obesity: No - Physical Inactivity Physical Inactivity: None - For Smoking Smoking Risk Guidelines: Smoking Low Risk: None or quit greater than 6 months ago. Smoking Moderate Risk: Smoker or quit 6 months or less ago. Smoking High Risk: Smoker - For Dyslipidemia Dyslipidemia Risk Guidelines: Low Risk: Moderate Risk: High Risk: 15-25% fat 25.1-29% fat >/= 30% fat. <7% sat fat 7-9% sat fat >9% sat fat. <150 mg chol 150-299 mg chol >/= 300 mg chol. LDL <100 LDL 100-129 LDL >/= 130. Chol/HDL ratio <5.0 Chol/HDL ratio 5.0-6.0 Chol/HDL ratio >6.0. Triglycerides <100 Triglycerides 100-149 Triglycerides >/= 150 - For Diabetes Mellitus Diabetes Risk Guidelines: Diabetes Low Risk: HgA1c <6.5% and/or FBG <120. Diabetes Moderate Risk: HgA1c 6.6-7.9% and/or FBG 120-180. Diabetes High Risk: HgA1c >/= 8% and/or FBG >180 - For Obesity/Overweight Obesity/Overweight Risk Guidelines: Obesity Low Risk: BMI <25.0. Obesity Moderate Risk: BMI 25-29.9. Obesity High Risk: BMI >/= 30.0 - For Hypertension Hypertension Risk Guidelines: Hypertension Low Risk: Systolic <120 and Diastolic <80. Hypertension Moderate Risk: Systolic 120-139 and Diastolic 80-89. Hypertension High Risk: Systolic >/= 140 and Diastolic >/= 90 - For Sedentary Lifestyle Sedentary Lifestyle Risk Guidelines: Sedentary Lifestyle Low Risk: >/= 1 ,500 kcal/week. Sedentary Lifestyle Moderate Risk: 700-1,499 kcal/week. Sedentary Lifestyle High Risk: < 700 kcal/week - For Depression Depression Risk Guidelines: Depression Low Risk: Not clinically depressed. Depression Moderate Risk: Mildly depressed. Depression High Risk: Clinically depressed - Family History Family History: Family History (Last Reviewed 10/10/17 @ 15:45 by Hina Minor) Mother CAD (coronary artery disease) Motivation - Motivation to Participate On a scale of 1 to 10, how prepared are you to commit to attending program?: 10 What do you see as barriers to successfully being able to complete the program? : none aware of. What do you see as the benefits of succesfully completing the program? In other words, what do you hope to get out of participating in the program?: getting back in shape, getting heart healthy again, increase function. Are there issues you are dealing with that will interfere with completing the program?: none Do you have a spouse or signficant other, family or friends who will help support you to complete the program?: yes.
[2017-11-23 11:04] VITALS: BP 136/88; PULSE 64; RESP 16; TEMP 37.1; O2SAT 98; BMI 28.3
[2017-11-23 11:38] VITALS: BP 138/88
== END ==
PROVIDERS: Family Provider Family Medicine Geriatric Medicine; PCP Family Medicine Geriatric Medicine; Visit Provider Internal Medicine Cardiovascular Disease
DX: Z95.5 Presence of coronary angioplasty implant and graft (principal)

== ENCOUNTER → 2017-12-06 14:01 | Outpatient (CLI) | payer OTHER, SELFPAY ==
[2017-11-09 08:24] VITALS: BMI 29.7
[2017-12-06 16:06] LABS: Anion Gap 8 (5-15); BUN 18 mg/dL (7-18); BUN/Creat Ratio 14.9 RATIO (10-20); Calcium,Total 9.4 mg/dL (8.5-10.1); Chloride 106 mmol/L (98-107); Creatinine, Serum 1.21 mg/dL (0.70-1.30); EST Glomerular Filtration Rate 64 mL/min (>60); Est Glom Filt Rate - Afr Amer 77 mL/min (>60); Glucose 89 mg/dL (74-106); Potassium 4.2 mmol/L (3.5-5.1); Sodium Level 143 mmol/L (136-145)
== END ==
PROVIDERS: Family Provider Family Medicine Geriatric Medicine; PCP Family Medicine Geriatric Medicine; Visit Provider Internal Medicine Cardiovascular Disease
DX: I10 Essential (primary) hypertension (principal); E78.5 Hyperlipidemia, unspecified; I35.1 Nonrheumatic aortic (valve) insufficiency; I25.810 Atherosclerosis of coronary artery bypass graft(s) without angina pectoris; Z95.1 Presence of aortocoronary bypass graft
CPT/HCPCS: 36415; 80048

== ENCOUNTER 2017-12-11 15:15 | Outpatient (RCR) | payer OTHER, SELFPAY ==
[2017-11-09 08:24] VITALS: BMI 29.7
[2017-12-06 07:19] VITALS: BP 160/80; BP 208/80
--- NOTE | 2017-12-06 07:20 | CR.ITP_ITS ---
Exercise - 30-day Assessment - Visit Date of Eval: 12/06/17 Session #:: 4 - Stages of Change Stages of Change:: Action - Exercise Prescription Mode:: Treadmill, Rower, Airdyne, NuStep Frequency (x/week): 3 Duration:: 30 METs - Progression: 0.5-1 MET as tolerated: 4.5 Target Heart Rate:: 117-124 Max HR 109 - Hypertension Resting Blood Pressure:: 160/80 - Review BP management medications Peak Exercise Blood Pressure:: 208/80 Medication Changes:: No - Intervention Home Exercise/Activity Goal:: Moderate Exercise 30 min/day x 5 days/wk - Education Goals:: Warm-up, RPE JAIR Scale, S/S, Safe Exercise, Self-Monitoring - Exercise Program Goals Exercise Program Goals: Aerobic Activity >30 min Nutrition - 30-Day Assessment - Program Goals Nutrition Program Goals: LDL <70. Total Cholesterol <200. HDL >45. Triglycerides <150. HgbA1C <7%. BMI <25 - Visit Date of Eval: 12/06/17 - Stages of Change Stages of Change:: Action - Lipids Has the patient seen the dietitian?: No - Diabetes Diabetes:: No - Weight Management Weight:: 209 lb - loss 6 pounds - Intervention Referral to dietitian:: No Referral to Diabetic Clinic:: No Will attend diet classes:: Yes - Education Attended class for:: Healthy eating Tobacco - Initial Assessment - Program Goals Tobacco Program Goals: Complete smoking cessation. Attend education classes. 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 Attend education classes. Improve Knowledge Test score - Stage of Change Stages of Change:: Action - Learning Barriers Learning Barriers: Participates in education - Family Support Do you have family support?: Yes - Tobacco Use Tobacco Use: Non-smoker Do you use smokeless tobacco?: No - Intervention Education Schedule Given:: Yes - Education Attended class for:: Coronary artery disease, Risk factors, Sexuality, Medical compliance, Cardiac A&P, Angina signs & symptoms Psychosocial - 30-Day Assess - Target Goals Target Goals: Assess presence or absence of depression. Using a valid screening tool, maximizes coping skills. Positive support system - Stages of Change Stages of Change:: Action - Psychosocial Test Tool Used:: HANDS Depression Questionnaire - Intervention PS - Interventions: Yes Attend Stress Management Classes, Yes Uses Stress Management Skills, No Referral to Mental Health, No Referral to [facility] Case Management, No Referral to Physician - Education Attended classes for:: Coping techniques, Signs & symptoms of depression, Stress management, Relaxation techniques - Patient/Program Goal Preventative Medication(s):: Aspirin, Clopidogrel, Beta nilson - Assistive Devices Assistive Devices:: None Fall Risk Assessed:: Yes Patient Health Questionnaire 30-Day Re-eval Assessment 1. Little interest or pleasure in doing things: Not at all 2. Feeling down, depressed, or hopeless: Not at all 3. Trouble falling or staying asleep, or sleeping too much: Not at all 4. Feeling tired or having little energy: Not at all 5. Poor appetite or overeating: Not at all 6. Feeling bad about yourself -- or that you are a failure or have let yourself or your family down: Not at all 7. Trouble concentrating on things, such as reading the newspaper or watching television: Not at all 8. Moving or speaking so slowly that other people could have noticed. Or the opposite - being so fidgety or restless that you have been moving around a lot more than usual: Not at all 9. Thoughts that you would be better off , or of hurting yourself in some way: Not at all Total Score: 0 Self-Efficacy 30-Day Re-eval Assessment We would like to know how confident you are in doing certain activities. Please select your confidence level for:: Select your confidence level for the following using the scale 1-10 where 1 is not at all confident and 10 is totally confident. Your score is the average of all 6 responses. Fatigue: How confident are you that you can keep the fatigue caused by your disease from interfering with the things you want to do? Select Number: 10 Physical Discomfort or Pain: How confident are you that you can keep the physical discomfort or pain of your disease from interfering with the things you want to do? Select Number: 10 Emotional Distress: How confident are you that you can keep the emotional distress caused by your disease from interfering with the things you want to do? Select Number: 10 Other Symptoms or Health Problems: How confident are you that you can keep other symptoms or health problems from interfering with the things you want to do? Select Number: 10 Different Tasks and Activities: How confident are you that you can do the different tasks and activities needed to manage your health condition so as to reduce your need to see a doctor? Select Number: 10 Medication: How confident are you that you can do things other than just taking medication to reduce how much your illness affects your everyday life? Select Number: 10 Total Score:: 10
== END 2017-12-12 23:59 ==
LOC: CR 15:15
PROVIDERS: Family Provider Family Medicine Geriatric Medicine; PCP Family Medicine Geriatric Medicine; Visit Provider Internal Medicine Cardiovascular Disease
DX: I45.10 Unspecified right bundle-branch block (principal); I49.3 Ventricular premature depolarization; I35.1 Nonrheumatic aortic (valve) insufficiency; I25.10 Atherosclerotic heart disease of native coronary artery without angina pectoris; K76.0 Fatty (change of) liver, not elsewhere classified; I10 Essential (primary) hypertension; Z95.1 Presence of aortocoronary bypass graft; E78.5 Hyperlipidemia, unspecified; Z95.5 Presence of coronary angioplasty implant and graft
CPT/HCPCS: 93798

== ENCOUNTER → 2017-12-19 08:59 | Outpatient (CLI) | payer OTHER, SELFPAY ==
[2017-11-09 08:24] VITALS: BMI 29.7
--- NOTE | 2017-12-19 09:02 | RDU_ITS ---
Reason For Study: HTN Right Renal Artery Left Renal Artery Right renal artery ostium 119/30.6 Left renal artery ostium 103/19.2 RSV/EDV. PSV/EDV. Right renal artery proximal Left renal artery proximal PSV/EDV 143/37.9 PSV/EDV. 140/33.7 . Right renal artery mid 147/41.6 Left renal artery mid 142/31.9 PSV/EDV. PSV/EDV . Right renal artery distal 131/33.0 Left renal artery distal 111/37.4 PSV/EDV. PSV/EDV. Right Renal Parenchyma Left Renal Parenchyma Upper Pole Medula 43.8/12.3 Left upper pole medulla 38.8/12.8 PSV/EDV. PSV/EDV . Right upper pole medulla EDR .28 . Left upper pole medulla EDR .33 . Right upper pole medulla R.I. .72 . Left upper pole medulla R.I. .67 . Upper [place] Cortx 23.3/6.84 PSV/EDV. UP Cortex 26.4/8.66 PSV/EDV. Right upper pole cortex EDR .29 . Left upper pole cortex EDR .33 . Right upper pole cortex R.I. .71 . Left upper pole cortex R.I. .67 . Right lower Pole medulla 43.8/12.8 Left lower Pole medulla 33.7/10.9 PSV/EDV . PSV/EDV . Right lower pole medulla EDR .29 . Left lower pole medulla EDR .32 . Right lower pole medulla R.I. .71 . Left lower pole medulla R.I. .68 . Lower Pole Cortex 27.4/9.12 Lower Pole Cortx 21.4/6.84 PSV/EDV. PSV/EDV. Left lower pole cortex EDR .32 . Right lower pole cortex EDR .33 . Left lower pole cortex R.I. .68 . Right lower pole cortex R.I. .67 . Left Renal Hilar Right Renal Hilar Left hilar acceleration time 51 Right hilar acceleration time 44 m/sec. m/sec. LT Hilar avg 46.5/12.3 PSV/EDV . Right Hilar avg 42.0/12.3 PSV/EDV. Left Renal Dimensions Right Renal Dimensions Left kidney size 12.0 cm . Right kidney size 11.1 cm . Left cortical dimension 1.82 cm . Right cortical dimension 2.02 cm . Aorta Proximal abdominal aorta 1.64 x 1.63 cm . Proximal abdominal aorta peak systolic velocity is 114 cm/sec . Distal abdominal aorta 1.61 x 1.52 cm . Distal abdominal aorta peak systolic velocity is 111 cm/sec . Interpretation Summary Dimensions of the intra-abdominal aorta appear normal, without evidence of aneurysmal dilatation. Renal artery velocities are bilaterally normal. Acceleration times are normal bilaterally. There is no evidence of hemodynamically significant renal artery stenosis on either side. Renovascular resistance appears elevated in the right kidney, but normal on the left. The right cortical dimension is increased. The left cortical dimension is increased. Kidneys appear normal in size bilaterally. Ordering Physician: Norris Grigsby Performed By: Rajeev Santana RVCarla
== END ==
PROVIDERS: Family Provider Family Medicine Geriatric Medicine; PCP Family Medicine Geriatric Medicine; Visit Provider Nurse Practitioner Family
DX: I25.810 Atherosclerosis of coronary artery bypass graft(s) without angina pectoris (principal); I21.4 Non-ST elevation (NSTEMI) myocardial infarction; I10 Essential (primary) hypertension; I49.3 Ventricular premature depolarization; I35.1 Nonrheumatic aortic (valve) insufficiency; E78.5 Hyperlipidemia, unspecified; Z95.5 Presence of coronary angioplasty implant and graft
CPT/HCPCS: 93975

== ENCOUNTER → 2017-12-20 16:32 | Outpatient (CLI) | payer OTHER, SELFPAY ==
[2017-11-09 08:24] VITALS: BMI 29.7
[2017-12-20 17:22] LABS: Anion Gap 6 (5-15); BUN 17 mg/dL (7-18); BUN/Creat Ratio 14.7 RATIO (10-20); Calcium,Total 9.2 mg/dL (8.5-10.1); Chloride 104 mmol/L (98-107); Creatinine, Serum 1.16 mg/dL (0.70-1.30); EST Glomerular Filtration Rate 67 mL/min (>60); Est Glom Filt Rate - Afr Amer 81 mL/min (>60); Glucose 89 mg/dL (74-106); Potassium 4.2 mmol/L (3.5-5.1); Sodium Level 140 mmol/L (136-145)
== END ==
PROVIDERS: Family Provider Family Medicine Geriatric Medicine; PCP Family Medicine Geriatric Medicine; Visit Provider Internal Medicine Cardiovascular Disease
DX: I10 Essential (primary) hypertension (principal); Z79.899 Other long term (current) drug therapy
CPT/HCPCS: 80048

== ENCOUNTER 2018-01-12 15:15 | Outpatient (RCR) | payer OTHER, SELFPAY ==
[2017-11-09 08:24] VITALS: BMI 29.7
[2017-12-13 01:24] VITALS: BP 160/80; BP 208/80
--- NOTE | 2018-01-05 09:01 | PCM.CR.ITP ---
General Information - General Information Admitting Diagnosis: PCI S/P Coronary artery stenting - Education/Goals Barriers to Learning: None Cardiac Rehabilitation Goals: 1. Maintain the individual as the primary focus of care. 2. To improve the patient's quality of life. 3. Identification of cardiac risk factors and provide cardiac risk factor management. 4. Enhance the psychosocial status of the patient. 5. Reconditioning enough to allow the patient to resume customary activities. 6. Control symptoms of cardiac disease Scale for measuring improvement of personal goals: Enter appropriate number in Comments. 2 = Unchanged. 3 = Slightly Better. 4 = Moderate Improvement. 5 = Met my Goal Exercise - 60-Day Assessment - Visit Date of Eval: 01/05/18 Session #:: 17 - Stages of Change Stages of Change:: Action - Exercise Prescription Mode:: Treadmill, Rower, NuStep Frequency (x/week): 3 Duration:: 30 METs: 7.9 Target Heart Rate:: 124-133 - Hypertension Resting Blood Pressure:: 146/86 Peak Exercise Blood Pressure:: 204/90 Medication Changes:: Yes - 12/27 isosorbide C/D'd - Intervention Home Exercise/Activity Goal:: Sitting Time <3 hrs/day - Education Goals:: Warm-up, RPE JAIR Scale, S/S, Safe Exercise, Self-Monitoring - Exercise Program Goals Exercise Program Goals: Aerobic Activity >30 min, B/P <130/80 Nutrition - Initial Assessment - Program Goals Nutrition Program Goals: LDL <70. Total Cholesterol <200. HDL >45. Triglycerides <150. HgbA1C <7%. BMI <25 - Diabetes Do you monitor your blood sugar at home?: No Nutrition - 60-Day Assessment - Program Goals Nutrition Program Goals: LDL <70. Total Cholesterol <200. HDL >45. Triglycerides <150. HgbA1C <7%. BMI <25 - Visit Date of Eval: 01/05/18 - Stages of Change Stages of Change:: Action - Lipids Has the patient seen the dietitian?: No - Diabetes Diabetes:: No - Intervention Referral to dietitian:: No Referral to Diabetic Clinic:: No Will attend diet classes:: Yes - Education Attended class for:: Signs & symptoms of hypoglycemia, Signs & symptoms of hyperglycemia, Relate diabetes to coronary artery disease, Healthy eating Tobacco - Initial Assessment - Program Goals Tobacco Program Goals: Complete smoking cessation. Attend education classes. Improve Knowledge Test score - Learning Barriers Learning Barriers: Vision - reading glasses., Cognitive - some issues cognitively since surg, karma with numbers., Ready to Learn Tobacco - 60-Day Assessment - Program Goals Tobacco Program Goals: Complete smoking cessation. Attend education classes. Improve Knowledge Test score - Stage of Change Stages of Change:: Action - Learning Barriers Learning Barriers: Participates in education - Family Support Do you have family support?: Yes - Tobacco Use Tobacco Use: Non-smoker Do you use smokeless tobacco?: No - Intervention Smoking Cessation Referral:: No Individual Education/Counseling:: No Education Schedule Given:: Yes - Education Attended class for:: Tobacco triggers, Coronary artery disease, Risk factors, Sexuality, Medical compliance, Cardiac A&P, Angina signs & symptoms Psychosocial - Initial Assess - Target Goals Target Goals: Assess presence or absence of depression. Using a valid screening tool, maximizes coping skills. Positive support system - Psychosocial Test Tool Used:: HANDS Depression Questionnaire - Assistive Devices Fall Risk Assessed:: Yes Psychosocial - 60-Day Assess - Target Goals Target Goals: Assess presence or absence of depression. Using a valid screening tool, maximizes coping skills. Positive support system - Stages of Change Stages of Change:: Action - Psychosocial Test Tool Used:: HANDS Depression Questionnaire - Intervention PS - Interventions: Yes Attend Stress Management Classes, Yes Uses Stress Management Skills, No Referral to Mental Health, No Referral to [facility] Case Management, No Referral to Physician - Education Attended classes for:: Coping techniques, Signs & symptoms of depression, Stress management, Relaxation techniques - Assistive Devices Assistive Devices:: None Fall Risk Assessed:: Yes Patient Health Questionnaire 60-Day Re-eval Assessment 1. Little interest or pleasure in doing things: Not at all 2. Feeling down, depressed, or hopeless: Not at all 3. Trouble falling or staying asleep, or sleeping too much: Not at all 4. Feeling tired or having little energy: Not at all 5. Poor appetite or overeating: Not at all 6. Feeling bad about yourself -- or that you are a failure or have let yourself or your family down: Not at all 7. Trouble concentrating on things, such as reading the newspaper or watching television: Not at all 8. Moving or speaking so slowly that other people could have noticed. Or the opposite - being so fidgety or restless that you have been moving around a lot more than usual: Not at all 9. Thoughts that you would be better off , or of hurting yourself in some way: Not at all How difficult have these problems made it for you to do your work, take care of things at home, or get along with other people?: Not difficult at all Total Score: 0 Self-Efficacy 60-Day Re-eval Assessment We would like to know how confident you are in doing certain activities. Please select your confidence level for:: Select your confidence level for the following using the scale 1-10 where 1 is not at all confident and 10 is totally confident. Your score is the average of all 6 responses. Fatigue: How confident are you that you can keep the fatigue caused by your disease from interfering with the things you want to do? Select Number: 10 Physical Discomfort or Pain: How confident are you that you can keep the physical discomfort or pain of your disease from interfering with the things you want to do? Select Number: 10 Emotional Distress: How confident are you that you can keep the emotional distress caused by your disease from interfering with the things you want to do? Select Number: 10 Other Symptoms or Health Problems: How confident are you that you can keep other symptoms or health problems from interfering with the things you want to do? Select Number: 10 Different Tasks and Activities: How confident are you that you can do the different tasks and activities needed to manage your health condition so as to reduce your need to see a doctor? Select Number: 10 Medication: How confident are you that you can do things other than just taking medication to reduce how much your illness affects your everyday life? Select Number: 10 Total Score:: 10
[2018-01-05 09:05] VITALS: BP 146/86; BP 204/90
== END 2018-01-12 23:59 ==
LOC: CR 15:15
PROVIDERS: Family Provider Family Medicine Geriatric Medicine; PCP Family Medicine Geriatric Medicine; Visit Provider Internal Medicine Cardiovascular Disease
DX: I45.10 Unspecified right bundle-branch block (principal); I49.3 Ventricular premature depolarization; I35.1 Nonrheumatic aortic (valve) insufficiency; I25.10 Atherosclerotic heart disease of native coronary artery without angina pectoris; K76.0 Fatty (change of) liver, not elsewhere classified; I10 Essential (primary) hypertension; Z95.1 Presence of aortocoronary bypass graft; E78.5 Hyperlipidemia, unspecified; Z95.5 Presence of coronary angioplasty implant and graft
CPT/HCPCS: 93798

== ENCOUNTER 2018-02-02 15:15 | Outpatient (RCR) | payer OTHER, SELFPAY ==
[2017-11-09 08:24] VITALS: BMI 29.7
[2018-01-13 01:26] VITALS: BP 146/86; BP 204/90
--- NOTE | 2018-02-07 08:54 | CR.ITP_ITS ---
General Information - General Information Admitting Diagnosis: PCI S/P Coronary artery stenting - Education/Goals Cardiac Rehabilitation Goals: 1. Maintain the individual as the primary focus of care. 2. To improve the patient's quality of life. 3. Identification of cardiac risk factors and provide cardiac risk factor management. 4. Enhance the psychosocial status of the patient. 5. Reconditioning enough to allow the patient to resume customary activities. 6. Control symptoms of cardiac disease Scale for measuring improvement of personal goals: Enter appropriate number in Comments. 2 = Unchanged. 3 = Slightly Better. 4 = Moderate Improvement. 5 = Met my Goal Exercise - 90-Day Assessment - Visit Date of Eval: 02/07/18 Session #:: 28 - Stages of Change Stages of Change:: Action - Exercise Prescription Mode:: Treadmill, Rower, NuStep Frequency (x/week): 3 Duration:: 30 METs: 8 Target Heart Rate:: 124-133 Max HR 148 - Hypertension Resting Blood Pressure:: 160/80 Peak Exercise Blood Pressure:: 194/80 - Intervention Home Exercise/Activity Goal:: Sitting Time <3 hrs/day - Education Goals:: Warm-up, RPE JAIR Scale, S/S, Safe Exercise, Self-Monitoring - Exercise Program Goals Exercise Program Goals: Aerobic Activity >30 min, B/P <130/80 Nutrition - Initial Assessment - Program Goals Nutrition Program Goals: LDL <70. Total Cholesterol <200. HDL >45. Triglycerides <150. HgbA1C <7%. BMI <25 - Diabetes Do you monitor your blood sugar at home?: No Nutrition - 90-Day Assessment - Program Goals Nutrition Program Goals: LDL <70. Total Cholesterol <200. HDL >45. Triglycerides <150. HgbA1C <7%. BMI <25 - Visit Date of Eval: 02/07/18 - Stages of Change Stages of Change:: Action - Diabetes Diabetes:: No - Weight Management Weight:: 96.615 kg - Intervention Referral to dietitian:: No Referral to Diabetic Clinic:: No Will attend diet classes:: Yes - Education Attended class for:: Signs & symptoms of hypoglycemia, Signs & symptoms of hyperglycemia, Relate diabetes to coronary artery disease, Healthy eating Tobacco - Initial Assessment - Program Goals Tobacco Program Goals: Complete smoking cessation. Attend education classes. Improve Knowledge Test score - Learning Barriers Learning Barriers: Vision - reading glasses., Cognitive - some issues cognitively since surg, karma with numbers., Ready to Learn Tobacco - 90-Day Assessment - Program Goals Tobacco Program Goals: Complete smoking cessation. Attend education classes. Improve Knowledge Test score - Stage of Change Stages of Change:: Action - Learning Barriers Learning Barriers: Participates in education - Family Support Do you have family support?: Yes - Tobacco Use Do you use smokeless tobacco?: No - Intervention Smoking Cessation Referral:: No Individual Education/Counseling:: No Education Schedule Given:: Yes - Education Attended class for:: Tobacco triggers, Coronary artery disease, Risk factors, Sexuality Psychosocial - 90-Day Assess - Target Goals Target Goals: Assess presence or absence of depression. Using a valid screening tool, maximizes coping skills. Positive support system - Stages of Change Stages of Change:: Action - Psychosocial Test Tool Used:: HANDS Depression Questionnaire - Intervention PS - Interventions: Yes Attend Stress Management Classes, Yes Uses Stress Management Skills, No Referral to Mental Health, No Referral to [facility] Case Management, No Referral to Physician - Education Attended classes for:: Coping techniques, Signs & symptoms of depression, Stress management, Relaxation techniques - Assistive Devices Assistive Devices:: None Fall Risk Assessed:: Yes Patient Health Questionnaire 90-Day Re-eval Assessment 1. Little interest or pleasure in doing things: Not at all 2. Feeling down, depressed, or hopeless: Not at all 3. Trouble falling or staying asleep, or sleeping too much: Not at all 4. Feeling tired or having little energy: Not at all 5. Poor appetite or overeating: Not at all 6. Feeling bad about yourself -- or that you are a failure or have let yourself or your family down: Not at all 7. Trouble concentrating on things, such as reading the newspaper or watching television: Not at all 8. Moving or speaking so slowly that other people could have noticed. Or the opposite - being so fidgety or restless that you have been moving around a lot more than usual: Not at all 9. Thoughts that you would be better off , or of hurting yourself in some way: Not at all How difficult have these problems made it for you to do your work, take care of things at home, or get along with other people?: Not difficult at all Total Score: 0 Self-Efficacy 90-Day Re-eval Assessment We would like to know how confident you are in doing certain activities. Please select your confidence level for:: Select your confidence level for the following using the scale 1-10 where 1 is not at all confident and 10 is totally confident. Your score is the average of all 6 responses. Fatigue: How confident are you that you can keep the fatigue caused by your disease from interfering with the things you want to do? Select Number: 10 Physical Discomfort or Pain: How confident are you that you can keep the physical discomfort or pain of your disease from interfering with the things you want to do? Select Number: 10 Emotional Distress: How confident are you that you can keep the emotional distress caused by your disease from interfering with the things you want to do? Select Number: 10 Other Symptoms or Health Problems: How confident are you that you can keep other symptoms or health problems from interfering with the things you want to do? Select Number: 10 Different Tasks and Activities: How confident are you that you can do the different tasks and activities needed to manage your health condition so as to reduce your need to see a doctor? Select Number: 10 Medication: How confident are you that you can do things other than just taking medication to reduce how much your illness affects your everyday life? Select Number: 10 Total Score:: 10
[2018-02-07 08:55] VITALS: BP 160/80; BP 194/80
== END 2018-02-11 23:59 ==
LOC: CR 15:15
PROVIDERS: Family Provider Family Medicine Geriatric Medicine; PCP Family Medicine Geriatric Medicine; Visit Provider Internal Medicine Cardiovascular Disease
DX: I45.10 Unspecified right bundle-branch block (principal); I49.3 Ventricular premature depolarization; I35.1 Nonrheumatic aortic (valve) insufficiency; I25.10 Atherosclerotic heart disease of native coronary artery without angina pectoris; K76.0 Fatty (change of) liver, not elsewhere classified; I10 Essential (primary) hypertension; E78.5 Hyperlipidemia, unspecified; Z95.5 Presence of coronary angioplasty implant and graft
CPT/HCPCS: 93798

== ENCOUNTER 2018-02-26 15:15 | Outpatient (RCR) | payer OTHER, SELFPAY ==
[2017-11-09 08:24] VITALS: BMI 29.7
[2018-02-12 01:05] VITALS: BP 160/80; BP 194/80
== END 2018-03-14 23:59 ==
LOC: CR 15:15
PROVIDERS: Family Provider Family Medicine Geriatric Medicine; PCP Family Medicine Geriatric Medicine; Referring Provider Internal Medicine Cardiovascular Disease; Visit Provider Internal Medicine Cardiovascular Disease
DX: I45.10 Unspecified right bundle-branch block (principal); I49.3 Ventricular premature depolarization; I35.1 Nonrheumatic aortic (valve) insufficiency; I25.10 Atherosclerotic heart disease of native coronary artery without angina pectoris; K76.0 Fatty (change of) liver, not elsewhere classified; I10 Essential (primary) hypertension; E78.5 Hyperlipidemia, unspecified; Z95.5 Presence of coronary angioplasty implant and graft; Z95.1 Presence of aortocoronary bypass graft
CPT/HCPCS: 93798

== ENCOUNTER → 2018-04-04 14:44 | Outpatient (CLI) | payer OTHER, SELFPAY ==
[2017-11-09 08:24] VITALS: BMI 29.7
--- NOTE | 2018-04-04 14:48 | ECHOD_ITS ---
Reason For Study: S/P CABG Procedure This was a 2D Doppler, Color Flow transthoracic echocardiogram. Exam performed in department. Left Ventricle Severely dilated left ventricle. The estimated ejection fraction is 40-45 %. Stage 1 diastolic dysfunction. There is moderate global hypokinesis of the left ventricle. Right Ventricle Normal size and thickness. Normal systolic function. Atria Normal left atrium. Normal right atrium. Normal atrial septum. Mitral Valve The mitral valve is structurally normal. No prolapse or stenosis seen. Trivial mitral valve insufficiency. Tricuspid Valve Normal tricuspid valve. Trivial tricuspid valve insufficiency. Unable to estimate RV systolic pressure/pulmonary artery pressure due to technically difficult study. Aortic Valve Trisinus/trileaflet aortic valve. Mild diffuse aortic valve thickening. Mild-Moderate (1-2+) aortic valve insufficiency. Pulmonic Valve Normal pulmonic valve. Great Vessels Normal aortic root. Normal arch. Normal inferior vena cava. Inferior vena cava collapse with respiration. Pericardium/Pleural No pericardial effusion. MMode/2D Measurements & Calculations LVIDd: 5.5 cm IVSd: 1.2 cm Ao root diam: 3.8 cm LVIDs: 4.5 cm LVPWd: 1.0 cm LA dimension: 4.2 cm FS: 18.0 % LAV(MOD-bp): 61.5 ml LVAd ap4: 36.9 cm2 SV(MOD-sp4): 56.0 ml LAV(MOD-bp) Indexed: 28.1 ml/m2 EDV(MOD-sp4): 132.3 ml LAV(MOD-sp2): 80.9 ml EDV(sp4-el): 128.8 ml LAV(MOD-sp4): 45.2 ml LVAs ap4: 26.6 cm2 ESV(MOD-sp4): 76.3 ml ESV(sp4-el): 76.8 ml EF(MOD-sp4): 42.3 % EF(sp4-el): 40.4 % SV(sp4-el): 52.0 ml LA A4 area: 17.5 cm2 RA A4 area: 20.2 cm2 Time Measurements MV dec time: 0.28 sec Doppler Measurements & Calculations MV E max mariusz: 49.4 cm/sec Lat Peak E' Mariusz: 10.4 cm/sec Med Peak E' Mariusz: 6.3 cm/sec MV A max mariusz: 84.9 cm/sec E/E' lat: 4.8 E/E' med: 7.9 MV E/A: 0.58 MV V2 max: 98.2 cm/sec MV P1/2t max mariusz: 86.7 cm/sec Ao V2 max: 138.2 cm/sec MV max P.9 mmHg MV P1/2t: 81.1 msec Ao max P.6 mmHg MV V2 mean: 55.1 cm/sec Ao V2 mean: 92.4 cm/sec MV mean P.4 mmHg MV dec slope: 312.9 cm/sec2 Ao mean P.9 mmHg MV V2 VTI: 30.0 cm MVA(P1/2t): 2.7 cm2 Ao V2 VTI: 25.0 cm AI max mariusz: 461.5 cm/sec LV V1 max: 93.3 cm/sec MR max mariusz: 561.0 cm/sec AI max P.2 mmHg LV V1 max P.5 mmHg MR max P.9 mmHg AI dec slope: 250.0 cm/sec2 LV V1 mean P.5 mmHg AI P1/2t: 540.6 msec LV V1 mean: 55.7 cm/sec LV V1 VTI: 18.6 cm PA V2 max: 82.8 cm/sec Interpretation Summary Severely dilated left ventricle. The estimated ejection fraction is 40-45 %. Stage 1 diastolic dysfunction. There is moderate global hypokinesis of the left ventricle. Trivial mitral valve insufficiency. Trivial tricuspid valve insufficiency. Unable to estimate RV systolic pressure/pulmonary artery pressure due to technically difficult study. Mild-Moderate (1-2+) aortic valve insufficiency. Compared to echo report dated 11/08/2017, LV function has mildly improved, aortic insufficiency has remained the same. Ordering Physician: Norris Grigsby Referring Physician: Norris Grigsby Performed By: Jeffrey Lara RCS
== END ==
PROVIDERS: Family Provider Family Medicine Geriatric Medicine; PCP Family Medicine Geriatric Medicine; Referring Provider Nurse Practitioner Family; Visit Provider Nurse Practitioner Family
DX: I25.10 Atherosclerotic heart disease of native coronary artery without angina pectoris (principal); E78.5 Hyperlipidemia, unspecified; I10 Essential (primary) hypertension; Z95.1 Presence of aortocoronary bypass graft; Z95.5 Presence of coronary angioplasty implant and graft
CPT/HCPCS: 93306

== ENCOUNTER → 2018-04-20 16:43 | Outpatient (CLI) | payer OTHER, SELFPAY ==
[2017-11-09 08:24] VITALS: BMI 29.7
[2018-04-20 17:47] LABS: Anion Gap 7 (5-15); BUN 19 mg/dL (7-18); BUN/Creat Ratio 16.2 RATIO (10-20); Calcium,Total 8.7 mg/dL (8.5-10.1); Chloride 105 mmol/L (98-107); Creatinine, Serum 1.17 mg/dL (0.70-1.30); EST Glomerular Filtration Rate 66 mL/min (>60); Est Glom Filt Rate - Afr Amer 80 mL/min (>60); Glucose 107 mg/dL (74-106); Magnesium 2.1 mg/dL (1.6-2.6); Potassium 4.3 mmol/L (3.5-5.1); Sodium Level 142 mmol/L (136-145)
== END ==
PROVIDERS: Family Provider Family Medicine Geriatric Medicine; PCP Family Medicine Geriatric Medicine; Referring Provider Internal Medicine Cardiovascular Disease; Visit Provider Internal Medicine Cardiovascular Disease
DX: Z79.01 Long term (current) use of anticoagulants (principal)
CPT/HCPCS: 36415; 80048; 83735

== ENCOUNTER → 2018-05-28 14:53 | Outpatient (CLI) | payer MEDICARE, SELFPAY ==
[2017-11-09 08:24] VITALS: BMI 29.7
[2018-05-28 17:47] LABS: Absolute Lymphocyte Count 1.73 X10^3/ul (0.83-4.51); Absolute Neutrophil Count 4.3 X10^3/uL (2.0-7.7); Basophil# 0.04 X10^3/uL; Basophil% 0.6 % (0-1); Eosinophil# 0.29 X10^3/uL; Eosinophils% 4.1 % (0-5); Hematocrit 44.2 % (40-54); Hemoglobin 14.6 g/dl (13.0-16.5); Lymphocyte # 1.73 X10^3/ul (4.0); Lymphocyte % 24.6 % (19-41); Mean Corpuscular Hgb 29.8 pg (27.0-32.0); Mean Corpuscular Volume 90.2 fL (80-94); Mean Platelet Vol. 9.2 fl (6.2-12.0); Monocyte# 0.64 X10^3/uL; Monocyte% 9.1 % (0-10); Neutrophil # 4.33 X10^3/uL (2.7-7.7); Neutrophil % 61.5 % (47-70); Platelet Count 306 K/mm3 (150-450); RBC Distribution Width CV 13.9 % (11.6-14.6); RBC Distribution Width SD 45.6 fl (35.1-43.9)
[2018-05-28 17:51] LABS: POSITIVE COUNT NO; POSITIVE DIFFERENTIAL NO; POSITIVE MORPHOLOGY NO
[2018-05-28 18:13] LABS: Vitamin D,25 Hydroxy 28.5 ng/mL (29.95-100.01)
[2018-05-28 19:23] LABS: ALB/GLOB Ratio 1.1 RATIO (0.9-2.4); AST(SGOT) 21 U/L (15-37); Alanine Aminotransfer ALT/SGPT 39 U/L (16-61); Albumin, Serum 4.1 g/dL (3.2-5.0); Alkaline Phosphatase 71 U/L (45-117); Anion Gap 10 (5-15); BUN 15 mg/dL (7-18); BUN/Creat Ratio 12.9 RATIO (10-20); Calcium,Total 9.3 mg/dL (8.5-10.1); Chloride 106 mmol/L (98-107); Creatinine, Serum 1.16 mg/dL (0.70-1.30); EST Glomerular Filtration Rate 67 mL/min (>60); Est Glom Filt Rate - Afr Amer 81 mL/min (>60); Globulin 3.6 g/dL (2.2-4.2); Glucose 101 mg/dL (74-106); PSA,Total - Annual Screen 1.25 ng/mL (0.00-4.00); Potassium 4.3 mmol/L (3.5-5.1); Protein, Total 7.7 g/dL (6.4-8.2); Sodium Level 141 mmol/L (136-145); Thyroid Stim Hormone (TSH) 2.19 uIU/mL (0.358-3.74)
== END ==
PROVIDERS: Family Provider Family Medicine Geriatric Medicine; PCP Family Medicine Geriatric Medicine; Visit Provider Family Medicine Geriatric Medicine
DX: I10 Essential (primary) hypertension (principal); N39.0 Urinary tract infection, site not specified; Z12.5 Encounter for screening for malignant neoplasm of prostate
CPT/HCPCS: 36415; 80053; 82306; 84153; 84443; 85025; G0103

== ENCOUNTER → 2018-06-01 07:49 | Outpatient (CLI) | payer MEDICARE, OTHER, SELFPAY ==
[2017-11-09 08:24] VITALS: BMI 29.7
--- NOTE | 2018-06-01 07:55 | US_ITS ---
PROCEDURES: ULTRASOUND AORTA REASON FOR EXAM: Male, 63 years old. Screening for abdominal aortic aneurysm. TECHNIQUE: Ultrasound evaluation of the aorta was performed with real-time and static kerr-scale imaging. COMPARISON: None. FINDINGS: There is atherosclerotic plaque formation of the abdominal aorta. Aorta measures: Proximal 2.8 cm. Middle 1.8 cm. Distal 2.1 cm. Aorta measure transversely: Proximal 2.6 cm. Middle 2.7 cm. Distal 1.9 cm. Right iliac artery measures: 1.0 cm. Right iliac artery measure transversely: 1.3 cm. Left iliac artery measures: 0.9 cm. Left iliac artery measure transversely: 1.5 cm. There is no demonstrated aneurysm.. US/Aorta IMPRESSION: Atherosclerotic plaque formation of the abdominal aorta. There is no evidence of abdominal aortic aneurysm. Electronically Signed: Gerber Jovel MD at 14:30 EST Tel [phone], Service support ,
--- OUTSIDE RECORDS SUMMARY | 2018-08-05 14:48 | XMS RPT_ITS ---
:1955 Author Organization [place] Support Name Relationship Address Phone MANUEL HERNANDEZ Unavailable [address] + [place] [address] [employer] Unavailable [address] + [place] [address] MANUEL HERNANDEZ Unavailable [address] + [place] [address] [employer] Unavailable [address] + [place] [address] MANUEL HERNANDEZ Unavailable [address] + [place] [address] [employer] Unavailable [address] + [place] [address] MANUEL HERNANDEZ Unavailable [address] + [place] [address] [employer] Unavailable [address] + [place] [address] MANUEL HERNANDEZ Unavailable [address] + [place] [address] [employer] Unavailable [address] + [place] [address] MANUEL HERNANDEZ Unavailable [address] + [place] [address] [employer] Unavailable [address] + [place] [address] MANUEL HERNANDEZ Unavailable [address] + [place] [address] [employer] Unavailable [address] + [place] [address] MANUEL HERNANDEZ Unavailable [address] + [place] [address] [employer] Unavailable [address] + [place] [address] MARY MANUEL Unavailable [address] + [place] [address] [employer] Unavailable [address] + [place] [address] RADHA HERNANDEZELA Unavailable [address] + [place] [address] [employer] Unavailable [address] + [place] [address] RADHA HERNANDEZELA Unavailable [address] + [place] [address] [employer] Unavailable [address] + [place] [address] MANUEL HERNANDEZ Unavailable [address] + [place] [address] [employer] Unavailable [address] + [place] [address] MARY MANUEL Unavailable [address] + [place] [address] [employer] Unavailable [address] + [place] [address] RADHA HERNANDEZELA Unavailable [address] + [place] [address] [employer] Unavailable [address] + [place] [address] MARY MANUEL Unavailable [address] + [place] [address] [employer] Unavailable [address] + [place] [address] MANUEL HERNANDEZ Unavailable [address] + [place] [address] [employer] Unavailable [address] + [place] [address] MANUEL HERNANDEZ Unavailable [address] + [place] [address] [employer] Unavailable [address] + [place] [address] MARY MANUEL Unavailable [address] + [place] [address] [employer] Unavailable [address] + [place] [address] MARY, MANUEL Unavailable [address] + [place] [address] [employer] Unavailable [address] + [place] [address] MARY MANUEL Unavailable [address] + [place] [address] [employer] Unavailable [address] + [place] [address] MARY MANUEL Unavailable [address] + [place] [address] [employer] Unavailable [address] + [place] [address] MARY, MANUEL Unavailable [address] + [place] [address] [employer] Unavailable [address] + [place] [address] MARY, MANUEL Unavailable [address] + [place] [address] [employer] Unavailable [address] + [place] [address] MARY MANUEL Unavailable [address] + [place] [address] [employer] Unavailable [address] + [place] [address] MARY MANUEL Unavailable [address] + [place] [address] [employer] Unavailable [address] + [place] [address] MARY MANUEL Unavailable [address] + [place] [address] [employer] Unavailable [address] + [place] [address] MANUEL HERNANDEZ Unavailable [address] + [place] [address] [employer] Unavailable [address] + [place] [address] PLEASE, ASK Unavailable Unavailable Unavailable PLEASE, ASK Unavailable Unavailable Unavailable Care Team Providers Name Role Phone Brandon, Cliff Chi Attending Unavailable Brandon, Cliff Chi Primary Care Unavailable Brandon, Cliff Chi Attending Unavailable Brandon, Cliff Chi Referring Unavailable Brandon, Cliff Chi Primary Care Unavailable Hina Minor Attending Unavailable Stefanie Gil Attending Unavailable Eloise Beasley Attending Unavailable Alfredo Jenkins Attending Unavailable Brandon, Cliff Chi Referring Unavailable Brandon, Cliff Chi Primary Care Unavailable Brandon, Cliff Chi Attending Unavailable Brandon, Cliff Chi Primary Care Unavailable Brandon, Cliff Chi Referring Unavailable Brandon, Cliff Chi Primary Care Unavailable Tereletsky, Mick Admitting Unavailable Ashelfah, Ghasem Attending Unavailable Alfredo Jenkins Consulting Unavailable Tereletsky, Mick Admitting Unavailable Tereletsky, Mick Attending Unavailable Brandon, Cliff Chi Primary Care Unavailable Tereletsky, Mick Consulting Unavailable Tereletsky, Mick Admitting Unavailable Alfredo Jenkins Attending Unavailable Brandon, Cliff Chi Primary Care Unavailable Alfredo Jenkins Consulting Unavailable Ashelfah, Ghasem Consulting Unavailable Tereletsky, Mick Admitting Unavailable Norris Grigsby Attending Unavailable Brandon, Cliff Chi Primary Care Unavailable Alfredo Jenkins Consulting Unavailable Ashelfah, Ghasem Consulting Unavailable Tereletsky, Mick Admitting Unavailable Ashelfah, Ghasem Attending Unavailable Brandon, Cliff Chi Primary Care Unavailable Alfredo Jenkins Consulting Unavailable Ashelfah, Ghasem Consulting Unavailable Tereletsky, Mick Admitting Unavailable Alfredo Jenkins Attending Unavailable Brandon, Cliff Chi Primary Care Unavailable Alfredo Jenkins Consulting Unavailable Ashelfah, Ghasem Consulting Unavailable Tereletsky, Mick Admitting Unavailable Ashelfah, Ghasem Attending Unavailable Brandon, Cliff Chi Primary Care Unavailable Alfredo Jenkins Consulting Unavailable Ashelfah, Ghasem Consulting Unavailable Alfredo Jenkins Attending Unavailable Brandon, Cliff Chi Primary Care Unavailable Alfredo Jenkins Attending Unavailable Alfredo Jenkins Referring Unavailable Brandon, Cliff Chi Primary Care Unavailable Norris Grigsby Attending Unavailable Brandon, Cliff Chi Referring Unavailable Brandon, Cliff Chi Primary Care Unavailable Alfredo Jenkins Attending Unavailable Alfredo Jenkins Referring Unavailable Brandon, Cliff Chi Primary Care Unavailable Roof, Norris H Attending Unavailable Roof, Norris H Referring Unavailable Brandon, Cliff Chi Primary Care Unavailable Alfredo Jenkins Attending Unavailable Gregory, Alfredo Referring Unavailable Brandon, Cliff Chi Primary Care Unavailable Alfredo Jenkins Attending Unavailable Gregory, Alfredo Referring Unavailable Brandon, Cliff Chi Primary Care Unavailable Alfredo Jenkins Attending Unavailable Jenkins, Alfredo Referring Unavailable Brandon, Cliff Chi Primary Care Unavailable Alfredo Jenkins Attending Unavailable Gregory, Alfredo Referring Unavailable Brandon, Cliff Chi Primary Care Unavailable Alfredo Jenkins Attending Unavailable Jenkins, Alfredo Referring Unavailable Brandon, Cliff Chi Primary Care Unavailable Roof, Norris H Attending Unavailable Roof, Norris H Referring Unavailable Brandon, Cliff Chi Primary Care Unavailable Alfredo Jenkins Attending Unavailable Roof, Norris H Referring Unavailable Brandon, Cliff Chi Primary Care Unavailable Roof, Norris H Consulting Unavailable Alfredo Jenkins Attending Unavailable Gregory, Alfredo Referring Unavailable Brandon, Cliff Chi Primary Care Unavailable EUGENE SALAZAR, DR. PERALTA Attending Unavailable 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 / I25.10(ICD-10) 04/04/2018 Unknown E78.5 - Alfredo Jenkins Active [place] Hyperlipidemia, Community unspecified / Hospital E78.5(ICD-10) Repository 04/04/2018 Unknown Z95.5 - Presence of Alfredo Jenkins Active [place] coronary angioplasty Community implant and graft / Hospital Z95.5(ICD-10) Repository 04/04/2018 Unknown Z95.1 - Presence of Alfredo Jenkins Active [place] aortocoronary bypass Community graft / Hospital Z95.1(ICD-10) Repository 03/15/2018 Unknown I45.10 - Unspecified Alfredo Jenkins Active [place] right bundle-branch Community block / Hospital I45.10(ICD-10) Repository 11/29/2017 Unknown I25.810 - Norris Grigsby Active [place] Atherosclerosis [facility] coronary artery Hospital bypass graft(s) Repository without angina pectoris / I25.810(ICD-10) 06/29/2017 Admitting Encounter for EUGENE GUY., Active [facility] Diagnosis screening for DR. CARLOS Ragland malignant neoplasm Repository of colon / Z12.11(ICD-10) PROCEDURES PROCEDURES No Procedure Records FoundRESULTS RESULTS AORTA Observed: 06/01/2018 Status: F Source: [place] 7:55 AM [facility] [facility] [place] [facility] Imaging Services [address] [place] [address] Aorta MR#: [id number] Acct: [id number] Name: SEVERIANO HERNANDEZ Rep #: [id number] : 1955 M 63 From: Gerber Jovel MD PCP: Brandon GUY,Cliff Rojo Status: REG CLI Study: Aorta Date of Exam: 06/01/18 Exam# [id number] Ordering Dr: Cliff Taylor MD PROCEDURES: ULTRASOUND AORTA REASON FOR EXAM: Male, 63 years old. Screening for abdominal aortic aneurysm. TECHNIQUE: Ultrasound evaluation of the aorta was performed with real-time and static kerr-scale imaging. COMPARISON: None. FINDINGS: There is atherosclerotic plaque formation of the abdominal aorta. Aorta measures: Proximal 2.8 cm. Middle 1.8 cm. Distal 2.1 cm. Aorta measure transversely: Proximal 2.6 cm. Middle 2.7 cm. Distal 1.9 cm. Right iliac artery measures: 1.0 cm. Right iliac artery measure transversely: 1.3 cm. Left iliac artery measures: 0.9 cm. Left iliac artery measure transversely: 1.5 cm. There is no demonstrated aneurysm.. US/Aorta IMPRESSION: Atherosclerotic plaque formation of the abdominal aorta. There is no evidence of abdominal aortic aneurysm. Electronically Signed: Gerber Jovel MD at 14:30 EST Tel [phone], Service support , CC: Cliff Taylor MD Production Technologist: Signed CBC W/DIFF, AUTOMATED Collected: 05/28/2018 Status: F Source: [place] 2:54 PM [facility] [place] TYPE CODE TESTS RESULT OUT OF RANGE REFERENCE UNITS LAB L100.1000 4.4-11.0 K/mm3 Normal WBC 7.0 LAB L100.1200 4.6-6.2 M/mm3 Normal RBC 4.90 LAB L100.1300 13.0-16.5 g/dl Normal HGB 14.6 LAB L100.1400 40-54 % Normal HCT 44.2 LAB L100.1500 80-94 fL Normal MCV 90.2 LAB L100.1600 27.0-32.0 pg Normal MCH 29.8 LAB L100.1700 32-36 g/gl Normal MCHC 33.0 LAB L100.1810 11.6-14.6 % Normal RDW CV 13.9 LAB L100.1820 35.1-43.9 fl High RDW SD 45.6 LAB L100.1900 150-450 K/mm3 Normal PLT 306 LAB L100.2000 6.2-12.0 fl Normal MPV 9.2 LAB L100.2100 47-70 % Normal NEUT% 61.5 LAB L100.2200 19-41 % Normal LY% 24.6 LAB L100.2300 0-10 % Normal MONO% 9.1 LAB L100.2400 0-5 % Normal EO% 4.1 LAB L100.2500 0-1 % Normal BASO% 0.6 LAB L100.2550 0.0-0.9 % Normal IM GRAN % 0.100 Result Comment: IG% - Immature Granulocytes (promyelocytes, myelocytes and metamyelocytes) > 1% indicates that a LEFT SHIFT is Present. LAB L100.2620 2.0-7.7 X10 3/uL Normal Absolute Neut 4.3 LAB L100.2720 0.83-4.51 X10 3/ul Normal Absolute Lymph 1.73 Performed By: #### L100.0100 #### [facility] [place], [address] VITAMIN D,25 HYDROXY Collected: 05/28/2018 Status: F Source: [place] 2:54 PM [facility] TYPE CODE TESTS RESULT OUT OF REFERENCE UNITS RANGE LAB L506.1000 29.95-100.01 ng/mL Low Vitamin D 28.5 25-OH Result Comment: Vitamin D 25(OH) Status Range Deficiency <20 ng/mL (50nmol/L) Insuffciency 20 - 30 ng/mL (50 - 75 nmol/L) Sufficiency 30 - 100 ng/mL (75 - 250 nmol/L) Toxicity >100 ng/mL (>250 nmol/L) Performed By: #### L506.1000 #### [facility] [address] [place], [address] COMPREHENSIVE METABOLIC Collected: 05/28/2018 Status: F Source: [facility] 2:54 PM [facility] [place] TYPE CODE TESTS RESULT OUT OF RANGE REFERENCE UNITS LAB L501.0100 74-106 mg/dL Normal GLU 101 Result Comment: Fasting Glucose result from 100 to 125 mg/dL suggests IMPAIRED HOMEOSTASIS per A.D.A. criteria. Please note revised GLUCOSE reference range effective 2017. LAB L501.1000 7-18 mg/dL Normal BUN 15 LAB L501.1100 0.70-1.30 mg/dL Normal CREAT,SERUM 1.16 Result Comment: The validity of the calculated GFR AND GFRAA in patients over 70 years has not been determined. Clinical correlation is essential. LAB L501.1110 >60 mL/min Normal EST GFR 67 Result Comment: Non- GFR Calc LAB L501.1115 >60 mL/min Normal EST GFR - AA 81 Result Comment: GFR Calc LAB L501.1300 10-20 RATIO Normal BUN/CRE 12.9 LAB L501.1500 6.4-8.2 g/dL T Normal PROT 7.7 LAB L501.1800 3.2-5.0 g/dL Normal ALB 4.1 LAB L501.1950 2.2-4.2 g/dL Normal GLOB 3.6 LAB L501.2000 0.9-2.4 RATIO Normal A/G 1.1 LAB L501.2200 8.5-10.1 mg/dL CA Normal 9.3 LAB L501.4100 15-37 U/L Normal AST 21 LAB L501.4305 45-117 U/L Normal ALK P 71 LAB L501.4405 16-61 U/L Normal ALT 39 LAB L501.4600 0.20-1.00 mg/dL T Normal BILI 0.90 LAB L501.5300 136-145 mmol/L NA Normal 141 LAB L501.5600 3.5-5.1 mmol/L K Normal 4.3 LAB L501.5900 98-107 mmol/L CL Normal 106 LAB L501.6100 21.0-32.0 mmol/L Normal CO2 25.0 LAB L501.6200 5-15 Normal GAP 10 Performed By: #### L500.4050, L501.9520, L501.9910 #### [facility] [address] [facility] [place], [address] THYROID STIM HORMONE Collected: 05/28/2018 Status: F Source: [place] (TSH) 2:54 PM [facility] [place] TYPE CODE TESTS RESULT OUT OF RANGE REFERENCE UNITS LAB L501.9520 0.358-3.74 uIU/mL Normal TSH 2.19 Performed By: #### L500.4050, L501.9520, L501.9910 #### [facility] [address] [facility] [place], [place], [address] PSA,TOTAL - ANNUAL Collected: 05/28/2018 Status: F Source: [place] SCREEN 2:54 PM [facility] [place] TYPE CODE TESTS RESULT OUT OF RANGE REFERENCE UNITS LAB L501.9910 0.00-4.00 ng/mL Normal PSA,TOT 1.25 SCREEN Result Comment: This test was performed using the TPSA assay method for the Qumu chemistry system. Values obtained with different assay methods cannot be used interchangably. When changing PSA assays in the course of monitoring a patient, additional sequential testing should be carried out to confirm baseline values. Performed By: #### L500.4050, L501.9520, L501.9910 #### [facility] [address] [place], [place], [id number] BASIC METABOLIC Collected: 04/20/2018 Status: F Source: [place] PROFILE (BMP) 4:45 PM [facility] [place] TYPE CODE TESTS RESULT OUT OF RANGE REFERENCE UNITS LAB L501.0100 74-106 mg/dL High GLU 107 Result Comment: Fasting Glucose result from 100 to 125 mg/dL suggests IMPAIRED HOMEOSTASIS per A.D.A. criteria. Please note revised GLUCOSE reference range effective 2017. LAB L501.1000 7-18 mg/dL High BUN 19 LAB L501.1100 0.70-1.30 mg/dL Normal CREAT,SERUM 1.17 Result Comment: The validity of the calculated GFR AND GFRAA in patients over 70 years has not been determined. Clinical correlation is essential. LAB L501.1110 >60 mL/min Normal EST GFR 66 Result Comment: Non- GFR Calc LAB L501.1115 >60 mL/min Normal EST GFR - AA 80 Result Comment: GFR Calc LAB L501.1300 10-20 RATIO Normal BUN/CRE 16.2 LAB L501.2200 8.5-10.1 mg/dL CA Normal 8.7 LAB L501.5300 136-145 mmol/L NA Normal 142 LAB L501.5600 3.5-5.1 mmol/L K Normal 4.3 LAB L501.5900 98-107 mmol/L CL Normal 105 LAB L501.6100 21.0-32.0 mmol/L Normal CO2 30.0 LAB L501.6200 5-15 Normal GAP 7 Performed By: #### L500.2500, L501.5200 #### [facility] [address] [facility] [place], [address] MAGNESIUM Collected: 04/20/2018 Status: F Source: [place] 4:45 PM [facility] [place] TYPE CODE TESTS RESULT OUT OF RANGE REFERENCE UNITS LAB L501.5200 1.6-2.6 mg/dL Normal MG 2.1 Performed By: #### L500.2500, L501.5200 #### [facility] [address] [facility] [place], [address] ECHOCARDIOGRAM COMPLETE Observed: 04/04/2018 Status: F Source: [place] 3:44 PM [facility] [place] Cardiovascular Services [address] [place] [address] Echo Complete 04/04/18 1446 MR#: [id number] Acct: [id number] Name: SEVERIANO HERNANDEZ Rep #: [id number] : 1955 63 From: Alfredo Jenkins MD Attending Dr: Norris Grigsby, GAMEROOM TECHNICIAN Status: REG CLI Ordering Dr: Norris Grigsby GAMEROOM TECHNICIAN-C Date: 04/04/18 Location: [facility] Sex: M C Admitted: Reason For Study: S/P CABG Procedure This was a 2D Doppler, Color Flow transthoracic echocardiogram. Exam performed in department. Left Ventricle Severely dilated left ventricle. The estimated ejection fraction is 40-45 %. Stage 1 diastolic dysfunction. There is moderate global hypokinesis of the left ventricle. Right Ventricle Normal size and thickness. Normal systolic function. Atria Normal left atrium. Normal right atrium. Normal atrial septum. Mitral Valve The mitral valve is structurally normal. No prolapse or stenosis seen. Trivial mitral valve insufficiency. Tricuspid Valve Normal tricuspid valve. Trivial tricuspid valve insufficiency. Unable to estimate RV systolic pressure/pulmonary artery pressure due to technically difficult study. Aortic Valve Trisinus/trileaflet aortic valve. Mild diffuse aortic valve thickening. Mild-Moderate (1-2+) aortic valve insufficiency. Pulmonic Valve Normal pulmonic valve. Great Vessels Normal aortic root. Normal arch. Normal inferior vena cava. Inferior vena cava collapse with respiration. Pericardium/Pleural No pericardial effusion. MMode/2D Measurements AND Calculations LVIDd: 5.5 cm IVSd: 1.2 cm Ao root diam: 3.8 cm LVIDs: 4.5 cm LVPWd: 1.0 cm LA dimension: 4.2 cm FS: 18.0 % LAV(MOD-bp): 61.5 ml LVAd ap4: 36.9 cm2 SV(MOD-sp4): 56.0 ml LAV(MOD-bp) Indexed: 28.1 ml/m2 EDV(MOD-sp4): 132.3 ml LAV(MOD-sp2): 80.9 ml EDV(sp4-el): 128.8 ml LAV(MOD-sp4): 45.2 ml LVAs ap4: 26.6 cm2 ESV(MOD-sp4): 76.3 ml ESV(sp4-el): 76.8 ml EF(MOD-sp4): 42.3 % EF(sp4-el): 40.4 % SV(sp4-el): 52.0 ml LA A4 area: 17.5 cm2 RA A4 area: 20.2 cm2 Time Measurements MV dec time: 0.28 sec Doppler Measurements AND Calculations MV E max mariusz: 49.4 cm/sec Lat Peak E' Mariusz: 10.4 cm/sec Med Peak E' Mariusz: 6.3 cm/sec MV A max mariusz: 84.9 cm/sec E/E' lat: 4.8 E/E' med: 7.9 MV E/A: 0.58 MV V2 max: 98.2 cm/sec MV P1/2t max mariusz: 86.7 cm/sec Ao V2 max: 138.2 cm/sec MV max P.9 mmHg MV P1/2t: 81.1 msec Ao max P.6 mmHg MV V2 mean: 55.1 cm/sec Ao V2 mean: 92.4 cm/sec MV mean P.4 mmHg MV dec slope: 312.9 cm/sec2 Ao mean P.9 mmHg MV V2 VTI: 30.0 cm MVA(P1/2t): 2.7 cm2 Ao V2 VTI: 25.0 cm AI max mariusz: 461.5 cm/sec LV V1 max: 93.3 cm/sec MR max mariusz: 561.0 cm/sec AI max P.2 mmHg LV V1 max P.5 mmHg MR max P.9 mmHg AI dec slope: 250.0 cm/sec2 LV V1 mean P.5 mmHg AI P1/2t: 540.6 msec LV V1 mean: 55.7 cm/sec LV V1 VTI: 18.6 cm PA V2 max: 82.8 cm/sec Interpretation Summary Severely dilated left ventricle. The estimated ejection fraction is 40-45 %. Stage 1 diastolic dysfunction. There is moderate global hypokinesis of the left ventricle. Trivial mitral valve insufficiency. Trivial tricuspid valve insufficiency. Unable to estimate RV systolic pressure/pulmonary artery pressure due to technically difficult study. Mild-Moderate (1-2+) aortic valve insufficiency. Compared to echo report dated 11/08/2017, LV function has mildly improved, aortic insufficiency has remained the same. Ordering Physician: Norris Grigsby Referring Physician: Norris Grigsby Performed By: Brodwolf, Jeffrey, RCS 04/04/18 1543 Date Alfredo Jenkins MD CC: MAXIMO Grigsby; Cliff Taylor MD Date Dictated: 04/04/18 1446 Date Transcribed: 04/04/181542 Production Technologist: Signed BASIC METABOLIC Collected: 12/20/2017 Status: F Source: [place] PROFILE (BMP) 4:40 PM [facility] [place] TYPE CODE TESTS RESULT OUT OF RANGE REFERENCE UNITS LAB L501.0100 74-106 mg/dL Normal GLU 89 Result Comment: Please note revised GLUCOSE reference range effective 2017. LAB L501.1000 7-18 mg/dL Normal BUN 17 LAB L501.1100 0.70-1.30 mg/dL Normal CREAT,SERUM 1.16 Result Comment: The validity of the calculated GFR AND GFRAA in patients over 70 years has not been determined. Clinical correlation is essential. LAB L501.1110 >60 mL/min Normal EST GFR 67 Result Comment: Non- GFR Calc LAB L501.1115 >60 mL/min Normal EST GFR - AA 81 Result Comment: GFR Calc LAB L501.1300 10-20 RATIO Normal BUN/CRE 14.7 LAB L501.2200 8.5-10.1 mg/dL CA Normal 9.2 LAB L501.5300 136-145 mmol/L NA Normal 140 LAB L501.5600 3.5-5.1 mmol/L K Normal 4.2 LAB L501.5900 98-107 mmol/L CL Normal 104 LAB L501.6100 21.0-32.0 mmol/L Normal CO2 30.0 LAB L501.6200 5-15 Normal GAP 6 Performed By: #### L500.2500 #### [facility] [address] [facility] [place], [address] RENAL ARTERY DUPLEX Observed: 12/19/2017 Status: F Source: [place] 7:39 PM [facility] [place] [facility] Cardiovascular Services [address] [place] [address] Renal Artery Duplex Ultrasound 12/19/17 0903 MR#: [id number] Acct: [id number] Name: SEVERIANO HERNANDEZ Rep #: [id number] : 1955 62 From: Rico Dickey MD Attending Dr: Norris Grigsby, GAMEROOM TECHNICIAN Status: REG CLI Ordering Dr: Norris Grigsby GAMEROOM TECHNICIAN-C Date: 12/19/17 Location: [facility] Sex: M C Admitted: Reason For Study: HTN Right Renal Artery Left Renal Artery Right renal artery ostium 119/30.6 Left renal artery ostium 103/19.2 RSV/EDV. PSV/EDV. Right renal artery proximal Left renal artery proximal PSV/EDV 143/37.9 PSV/EDV. 140/33.7 . Right renal artery mid 147/41.6 Left renal artery mid 142/31.9 PSV/EDV. PSV/EDV . Right renal artery distal 131/33.0 Left renal artery distal 111/37.4 PSV/EDV. PSV/EDV. Right Renal Parenchyma Left Renal Parenchyma Upper Pole Medula 43.8/12.3 Left upper pole medulla 38.8/12.8 PSV/EDV. PSV/EDV . Right upper pole medulla EDR .28 . Left upper pole medulla EDR .33 . Right upper pole medulla R.I. .72 . Left upper pole medulla R.I. .67 . Upper John Cortx 23.3/6.84 PSV/EDV. UP Cortex 26.4/8.66 PSV/EDV. Right upper pole cortex EDR .29 . Left upper pole cortex EDR .33 . Right upper pole cortex R.I. .71 . Left upper pole cortex R.I. .67 . Right lower Pole medulla 43.8/12.8 Left lower Pole medulla 33.7/10.9 PSV/EDV . PSV/EDV . Right lower pole medulla EDR .29 . Left lower pole medulla EDR .32 . Right lower pole medulla R.I. .71 . Left lower pole medulla R.I. .68 . Lower Pole Cortex 27.4/9.12 Lower Pole Cortx 21.4/6.84 PSV/EDV. PSV/EDV. Left lower pole cortex EDR .32 . Right lower pole cortex EDR .33 . Left lower pole cortex R.I. .68 . Right lower pole cortex R.I. .67 . Left Renal Hilar Right Renal Hilar Left hilar acceleration time 51 Right hilar acceleration time 44 m/sec. m/sec. LT Hilar avg 46.5/12.3 PSV/EDV . Right Hilar avg 42.0/12.3 PSV/EDV. Left Renal Dimensions Right Renal Dimensions Left kidney size 12.0 cm . Right kidney size 11.1 cm . Left cortical dimension 1.82 cm . Right cortical dimension 2.02 cm . Aorta Proximal abdominal aorta 1.64 x 1.63 cm . Proximal abdominal aorta peak systolic velocity is 114 cm/sec . Distal abdominal aorta 1.61 x 1.52 cm . Distal abdominal aorta peak systolic velocity is 111 cm/sec . Interpretation Summary Dimensions of the intra-abdominal aorta appear normal, without evidence of aneurysmal dilatation. Renal artery velocities are bilaterally normal. Acceleration times are normal bilaterally. There is no evidence of hemodynamically significant renal artery stenosis on either side. Renovascular resistance appears elevated in the right kidney, but normal on the left. The right cortical dimension is increased. The left cortical dimension is increased. Kidneys appear normal in size bilaterally. Ordering Physician: Norris Grigsby Performed By: Rajeev Santana RVT 12/19/171937 Date Rico Dickey MD CC: MAXIMO Grigsby; Cliff Taylor MD Date Dictated: 12/19/17902 Date Transcribed: 08/07/18 1938 Production Technologist: Signed BASIC METABOLIC Collected: 12/06/2017 Status: F Source: ROMAN PROFILE (BMP) 2:07 PM [facility] [place] CODE TESTS RESULT OUT OF RANGE REFERENCE UNITS LAB L501.0100 74-106 mg/dL Normal GLU 89 Result Comment: Please note revised GLUCOSE reference range effective 2017. LAB L501.1000 7-18 mg/dL Normal BUN 18 LAB L501.1100 0.70-1.30 mg/dL Normal CREAT,SERUM 1.21 Result Comment: The validity of the calculated GFR AND GFRAA in patients over 70 years has not been determined. Clinical correlation is essential. LAB L501.1110 >60 mL/min Normal EST GFR 64 Result Comment: Non- GFR Calc LAB L501.1115 >60 mL/min Normal EST GFR - AA 77 Result Comment: GFR Calc LAB L501.1300 10-20 RATIO Normal BUN/CRE 14.9 LAB L501.2200 8.5-10.1 mg/dL CA Normal 9.4 LAB L501.5300 136-145 mmol/L NA Normal 143 LAB L501.5600 3.5-5.1 mmol/L K Normal 4.2 LAB L501.5900 98-107 mmol/L CL Normal 106 LAB L501.6100 21.0-32.0 mmol/L Normal CO2 29.0 LAB L501.6200 5-15 Normal GAP 8 Performed By: #### L500.2500 #### [facility] [address] [place], [address] CARDIOLOGY VISIT Observed: 11/30/2017 Status: F Source: [place]AN REPORT 5:28 PM [facility] [facility] [address] [place] [address] OFFICE VISIT Date of Service: 11/29/17 MR#: [id number] Acct: [id number] Name: SEVERIANO HERNANDEZ Rep #: [id number] : 1955 Provider: MAXIMO Grigsby Age/Sex: 62/M [place] [facility] [place]: Signed HPI HPI Details: SEVERIANO HERNANDEZ, is a 62 M who presents to the office today for a cardiovascular outpatient follow-up. He has a history of coronary artery disease status post three-vessel bypass surgery in [address] Dillard at [facility] with REYES to distal of the LAD, SVG to obtuse marginal, and SVG to PDA. He also underwent PTCA/ERROL to RCA x2 in October 2017. He also has a history of hypertension and hyperlipidemia. He presented to [facility] emergency department in October 2017 after shortness of breath for 3 weeks. He was admitted for acute on chronic congestive heart failure. His heart catheterization showed patent grafts except for his SVG to RCA. His RCA was underwent drug-eluting stenting 2. His ejection fraction was noted to be 20% which is reduced from previous of 45%. It was recommended that he undergo cardiac rehab and repeat echocardiogram to evaluate if need for AICD. Pt denies chest, arm, jaw, or neck discomfort. 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 Pt denies symptoms of CHF, palpitations, lightheadedness, dizziness, near syncopal or syncopal episodes. Pt denies edema or claudication issues. Pt. denies orthopnea, PND, fever, chills, blood in urine, blood in stool, myalgia, or unexplainable fatigue. Intake Vital Signs11/29/17 Height 6 ft 11/29/17 Weight: 210 lb 11/29/17 Body Mass Index (BMI) 28.5 11/29/17 Blood Pressure 142/84 11/29/17 Blood Pressure Location Lt brachial Intake Visit Reasons: S/P [facility] PER R Language Assistant Required: No Accompanied by: none Is patient in pain?: No Allergies pravastatin sodium [From Pravachol] Allergy (Verified 11/29/17 09:42) Unknown atorvastatin calcium [From Lipitor] Adverse Reaction (Verified 11/29/17 09:42) Pain in joints gemfibrozil Adverse Reaction (Verified 11/29/17 09:42) myalgia Medications aspirin 81 mg tablet,delayed release 81 mg PO DAILY 05/24/17 [History Confirmed 11/29/17] carvedilol 3.125 mg tablet 3.125 mg PO BID #180 tab 05/24/17 [Rx Confirmed 11/29/17] Losartan Potassium [Cozaar] 50 mg PO BID #90 tab 11/10/17 [Rx Confirmed 11/29/17] Spironolactone [Aldactone] 25 mg PO DAILY #30 tab 11/10/17 [Rx Confirmed 11/29/17] Ticagrelor [Brilinta] 90 mg PO BID #90 tab 11/10/17 [Rx Confirmed 11/29/17] Ejection fraction %: 55 to 59 PFSH Medical History Atherosclerosis of coronary artery bypass graft without angina pectoris (Acute) Non-ST elevation (NSTEMI) myocardial infarction (Acute) White coat syndrome with hypertension (Chronic) RBBB (Chronic) Premature ventricular contraction (Chronic) Nonrheumatic aortic valve insufficiency (Chronic) Atherosclerosis of coronary artery of [place] heart without angina pectoris (Chronic) Non-alcoholic fatty liver disease (Chronic) Hyperlipidemia (Chronic) Hypertension (Chronic) Surgical History H/O right coronary artery stent placement (Acute 11/08/17) H/O coronary artery bypass surgery (Chronic 08/12/15) History of esophagogastroduodenoscopy (EGD) (Chronic 2014) Family History Mother CAD (coronary artery disease) Social History Smoking Status: Never smoker alcohol intake: current details: rare substance use type: does not use ROS Const Const: Negative for fatigue, weakness, body ache, fever(s) or chills ENT ENT: Negative for dizziness Cardio Chest Pain: No Palpitations: No Edema: None Muscle aches with walking: None Resp Respiratory: Negative for SOB with activity, SOB at rest, SOB orthopnea\SOB lying down or paroxysmal nocturnal dyspnea GI GI: Negative nausea, black,tarry stools, bright, red blood in stools or vomiting blood/hematemesis : Negative for hematuria or frequent nighttime urination/ nocturia Musc Musc: Negative for muscle aches/ myalgia Skin Skin: Negative non-healing lesions or rash Neuro Neuro: Negative for weakness, dizziness, lightheadedness, near syncope, syncope or orthostatic symptoms Endo Endo: Negative for fatigue Allergy Allergy/Immunology: Negative for rash Cardiology Exam Const Appearance: cooperative, healthy appearing and no acute distress Nutritional Appearance: well nourished Orientation: alert, oriented x3 and oriented to person Head Head: normal to inspection, atraumatic and normocephalic Nose: external nose normal Face and Sinus: face symmetric Mouth: oral mucosae normal Eyes General: appearance normal, both eyes and all related structures Eyelids: eyelids normal Conjunctivae: conjunctivae normal Pupils: PERRL and normal by confrontation EOM: EOM intact bilaterally Neck Neck: normal visual inspection and full ROM Carotids: normal carotid upstroke Chest Chest inspection: normal inspection of the chest Auscultation: Bilateral: Clear to Auscultation Cardio Palpation: normal PMI Rate: regular rate Rhythm: regular rhythm Heart sounds: S1 normal and S2 normal GI GI: normal to inspection, no hepatosplenomegaly and bowel sounds present Neuro General: alert, oriented x3, awake, CN's II-XI intact bilaterally and moves all extremities Skin Skin: no rashes or lesions noted Extremities Pulses: Normal: Right Femoral Pulse, Left Femoral Pulse, Right Dorsalis Pedis Pulse, Left Dorsalis Pedis Pulse, Right Posterior Tibial Pulse, Left Posterior Tibial Pulse, Right Radial Pulse, Left Radial Pulse Lower Extremity Edema: None: Bilateral Psych Psychological: normal affect Supplemental Info Echocardiogram from October 2017 showed moderately dilated ventricle, estimated ejection fraction of 30 35%, stage II diastolic dysfunction, moderate to severe global hypokinesis of the left ventricle, mildly dilated right ventricle, mild global right ventricular systolic dysfunction, moderately enlarged left atrium, moderate enlarged right atrium, mild to moderate mitral valve insufficiency, trivial tricuspid valve insufficiency, RVSP of 37 mmHg, mild pulmonary hypertension, mild to moderate aortic valve insufficiency, and when compared to previous echocardiogram in July 2015 LV function is decreased from 55% to 35% and AI and MR have remained the same. Heart catheterization from October 2017 showed triple-vessel coronary artery disease of the LAD, LCx, OM, and RCA. He underwent successful PTCA/ERROL to RCA 2. His ejection fraction was noted to be 25%, left main had no significant disease, proximal LAD had 75% stenosis, mid LAD had 85% stenosis, OM1 had proximal occlusion, ramus with upwards to 50% stenosis, mid RCA with 80% stenosis, sequential REYES to proximal and mid LAD is patent, SVG to first OM is patent, and SVG to RPDA is totally occluded. Assessment AND Plan 1. Atherosclerosis of [place] coronary artery of [place] heart without angina pectoris I25.10 PCI-ERROL-RCA w/ 3.0 x 20 and 3.0 x 38 mm Promus 11/08/17 CABG x 3 FSMS-sopc-ij-side-Mid LAD and end-to-side to the apical segment, Free ABIMAEL-OM, SVG-PDA of the RCA 08/12/2015 Plan - PHILIP Mercedes Patient is status post bypass surgery and recently drug-eluting stent to his RCA 2. He will undergo cardiac rehab. His ejection fraction is noted to be reduced at 30 35% per echocardiogram and 25% noted on heart catheterization in October 2017. After cardiac rehab he will undergo a repeat echocardiogram to evaluate ejection fraction. Hopefully with medication adjustment, cardiac rehab, and revascularization this improves. If this remains 35% or below further consideration be made regarding AICD. We will await for the echocardiogram results for further recommendation. Orders Orders: 2. H/O coronary artery bypass surgery Z95.1 CABG x 3 PSTH-ssjz-bn-side-Mid LAD and end-to-side to the apical segment, Free ABIMAEL-OM, SVG-PDA of the RCA 08/12/2015 PHILIP Velasquez Patient's heart catheterization October 2017 showed patent REYES to proximal and mid LAD, patent SVG to first OM, and occluded SVG to RPDA. He will continue with cardiac rehab. He will continue current medications. Orders Orders: 3. Atherosclerosis of coronary artery bypass graft of [place] heart without angina pectoris 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 PHILIP Velasquez As noted above his SVG to RPDA is occluded. He will continue current medications. We will continue to monitor this. Orders Orders: 4. H/O right coronary artery stent placement Z95.5 PCI-ERROL-RCA w/ 3.0 x 20 and 3.0 x 38 mm Promus 11/08/17 PHILIP Velasquez He will continue current treatment plan as outlined above. Orders Orders: 5. Essential hypertension I10 PHILIP Velasquez His blood pressures is on the higher higher end of expected range. He states this is due to being in a Dr. office. He states this happens frequently. He will continue current medications and we will continue to monitor this throughout cardiac rehab. Orders Orders: 6. Pure hypercholesterolemia E78.00; E78.0 PHILIP Velasquez Lipid panel from October 2017 showed cholesterol: 136, HDL: 40, LDL: 76, and triglycerides: 101. He is not on any statin or non-statin medication due to intolerance in the past. He will continue lifestyle modifications. 7. Ischemic cardiomyopathy I25.5 Plan - Norris H Roof, GAMEROOM TECHNICIAN-C Patient's most recent echocardiogram from October 2017 showed ejection fraction of 30 35%. His heart catheterization from October 2017 showed ejection fraction 25%. He will undergo cardiac rehab and this will be assessed post cardiac rehab to discern if he is in need for an AICD. Overall his activity and energy level has improved. He denies any shortness of breath. He will continue current medications and we will await her echocardiogram results for further recommendation. Plan Detail Other Orders Orders: Additional Comments - PHILIP Mercedes Discussed the above patient with Dr. Jenkins, he agrees with the plan of care. Thank you for allowing us to participate in the patients plan of care, if you have any questions please do not hesitate to call. This note was generated using a voice recognition system and there may be incorrect words, spelling or punctuation that were not noted when reviewing the office note prior to saving. Follow Up 6 Months (DJN) 3 Months (GAMEROOM TECHNICIAN/PA) Coding Level of Care Code Off vis,est,level 3 Diagnoses Atherosclerosis of [place] coronary artery of [place] heart without angina pectoris I25.10 Coronary Disease-Associated Artery/Lesion type: [place] artery H/O coronary artery bypass surgery Z95.1 Atherosclerosis of coronary artery bypass graft of [place] heart without angina pectoris I25.810 [place] vs. transplanted heart: [place] heart H/O right coronary artery stent placement Z95.5 Essential hypertension I10 Hypertension type: essential hypertension Pure hypercholesterolemia E78.00; E78.0 Hyperlipidemia type: pure hypercholesterolemia Ischemic cardiomyopathy I25.5 Coding Level of Care Code Off vis,est,level 3 Diagnoses Atherosclerosis of [place] coronary artery of [place] heart without angina pectoris I25.10 Coronary Disease-Associated Artery/Lesion type: [place] artery H/O coronary artery bypass surgery Z95.1 Atherosclerosis of coronary artery bypass graft of [place] heart without angina pectoris I25.810 [place] vs. transplanted heart: [place] heart H/O right coronary artery stent placement Z95.5 Essential hypertension I10 Hypertension type: essential hypertension Pure hypercholesterolemia E78.00; E78.0 Hyperlipidemia type: pure hypercholesterolemia Ischemic cardiomyopathy I25.5 11/30/17 1047 <Electronically signed by Norris PALACIOS> Date Norris Grigsby GAMEROOM TECHNICIAN-C 11/30/17 1728<Electronically signed by Alfredo Jenkins MD> Cosigner Signature: Date (if applicable) Alfredo Jenkins MD CC: Cliff Taylor MD CR - HISTORY AND Observed: 11/27/2017 Status: F Source: [place] PHYSICAL 8:10 AM [facility] [place] 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 Alfredo Jenkins Primary Diagnosis: Coronary stent placement - History of Present Cardiac Event Onset Date: Enter Onset Date of cardiac illnesses in Comment field below Coronary Artery Bypass Graft:: Yes - 07/2015 PTCA or coronary stenting:: Yes - 11/08/2017 Type of Symptoms:: shortness of breath, chose to do an elective left heart cath and subsequently found one of the bypass grafts occulded and stent was placed. Interventions with present event:: left heart cath w/coroanry stent placement Were there any complications?: none - Medications Home Medications: Ambulatory Orders Medication Instructions Recorded aspirin 81 mg tablet,delayed 81 mg PO DAILY 05/24/17 release carvedilol 3.125 mg tablet 3.125 mg PO BID #180 tab 05/24/17 - Allergies Allergies/Adverse Reactions: Allergies pravastatin sodium [From Pravachol] Allergy (Verified 11/07/17 22:18) Unknown atorvastatin calcium [From Lipitor] Adverse Reaction (Verified 11/07/17 22:18) Pain in joints gemfibrozil Adverse Reaction (Verified 11/07/17 22:18) myalgia - Sleep Disorder Evaluation Hx of Sleep Apnea: No Do you snore loudly (louder than talking or can be heard through closed doors)?: No Do you often feel tired/ fatigued/ sleepy during daytime?: Yes - do now Has anyone observed you stop breathing during sleep?: No History of Hypertension (for STOP score): Yes STOP Results: Positive Advanced Directives - Advanced Directives Power of Superintendent Transmission: Yes - is P.O.A. for healthcare Living Will: Yes Advance Directives on File: No DNR Order?:: No - MOLST See MOLST form: No Past Medical History - Past Medical Illness Medical History: Past Medical History (Last Updated 11/13/17 @ 11:40 by Hina Minor) Atherosclerosis of coronary artery bypass graft without angina pectoris (Acute) 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 Non-ST elevation (NSTEMI) myocardial infarction (Acute) I21.4 White coat syndrome with hypertension (Chronic) I10 RBBB (Chronic) I45.10 Premature ventricular contraction (Chronic) I49.3 Nonrheumatic aortic valve insufficiency (Chronic) I35.1 Atherosclerosis of coronary artery of [place] heart without angina pectoris (Chronic) I25.10 PCI-ERROL-RCA w/ 3.0 x 20 and 3.0 x 38 mm Promus 11/08/17 CABG x 3 GAHM-myau-ar-side-Mid LAD and end-to-side to the apical segment, Free ABIMAEL-OM, SVG-PDA of the RCA 08/12/2015 Non-alcoholic fatty liver disease (Chronic) K76.0 Hyperlipidemia (Chronic) E78.5 Hypertension (Chronic) I10 - Past Surgical History Surgical History: Past Surgical History (Last Reviewed 10/10/17 @ 15:45 by Hina Minor) H/O right coronary artery stent placement (Acute) Onset Date: 11/08/17 Z95.5 PCI-ERROL-RCA w/ 3.0 x 20 and 3.0 x 38 mm Promus 11/08/17 H/O coronary artery bypass surgery (Chronic) Onset Date: 08/12/15 Z95.1 CABG x 3 OAAK-dujq-nl-side-Mid LAD and end-to-side to the apical segment, Free ABIMAEL-OM, SVG-PDA of the RCA 08/12/2015 History of esophagogastroduodenoscopy (EGD) Onset Date: 2014 Z98.890 Surgical History: coronary bypass surgery, tonsillectomy - Family History Summary Family History: Family History (Last Reviewed 10/10/17 @ 15:45 by Hina Minor) Mother CAD (coronary artery disease) Social History - Smoking History Smoking Status: Never smoker Hx Tobacco Use: No Hx Smoking Exposure: No - Alcohol Use Alcohol Usage: No - Substance Abuse Hx Substance Use: No - Occupation 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 - Hobbies, Recreation, Social Activities Hobbies: Walking, Other - hiking, flying (pilots license), Recreational Activities: I am able to engage in most, but not all activities Social Environment - Status Marital Status: - Current Living Arrangements Living Environment:: Spouse - Children How many children do you have?: 3 Do any of your children live nearby?: Yes - 2 in [facility], 1 in [place] - Safety Do you feel safe in your surroundings?: Yes - Assistance Do you need any assistance at home?: none Review of Systems - Review of Systems Hints: Right click = Denies (Slash). Left click = Reports (Minerva) Review of Present Symptoms: Reports: Dizziness/Lightheadedness - associated with dehyrdation, Fatigue - associated with dehydration from lasix., Appetite - Normal, Appetite - Special Diet - vegetables, well balanced diet, fiber, fruits, Sleep - Normal. Denies: Shortness of Breath at Rest, Shortness of Breath with Exertion, Sexual Changes - Pain Is Patient Pain Free?: Yes Pain Location: none Pain Level: 0/10 Risk Factor Assessment - Chief Complaint Chief Complaint: Patient is a 62 year ofl makle patient of Dr. Jenkins's who presents to cardiac rehabilitation today following recent PTCA and stent palcement procedure done on 11/08/2017. Patient had a multi-vessel bypass in 2016 and just recently began having repeat symptoms and associated shortness of breath. Patient was seen by Dr. Jenkins adn decision to repeat leaft heart cath was made, subsequently lead to a stent placement in one of the bypass grafts. - Vital Signs Temperature: 98.7 F Respiratory Rate: 16 Pulse Ox: 98 Blood Pressure: 136/88 Nailbeds:: pink - Pulse Pulse Rate: 64 - Hypertension Blood Pressure Sitting - Left Arm: 136/88 - left arms typically runs higher per patient - Obesity Height: 6 ft Weight:: 209 lb Weight in Pounds: 209.0 lbs Weight Source: Standing Scale Body Mass Index (BMI): 28.3 Nutritional Referral for Obesity: No - Physical Inactivity Physical Inactivity: None - For Smoking Smoking Risk Guidelines: Smoking Low Risk: None or quit greater than 6 months ago. Smoking Moderate Risk: Smoker or quit 6 months or less ago. Smoking High Risk: Smoker - For Dyslipidemia Dyslipidemia Risk Guidelines: Low Risk: Moderate Risk: High Risk: 15-25% fat 25.1-29% fat >/= 30% fat. <7% sat fat 7-9% sat fat >9% sat fat. <150 mg chol 150-299 mg chol >/= 300 mg chol. LDL <100 LDL 100-129 LDL >/= 130. Chol/HDL ratio <5.0 Chol/HDL ratio 5.0-6.0 Chol/HDL ratio >6.0. Triglycerides <100 Triglycerides 100-149 Triglycerides >/= 150 - For Diabetes Mellitus Diabetes Risk Guidelines: Diabetes Low Risk: HgA1c <6.5% and/or FBG <120. Diabetes Moderate Risk: HgA1c 6.6-7.9% and/or FBG 120- 180. Diabetes High Risk: HgA1c >/= 8% and/or FBG >180 - For Obesity/Overweight Obesity/Overweight Risk Guidelines: Obesity Low Risk: BMI <25.0. Obesity Moderate Risk: BMI 25-29.9. Obesity High Risk: BMI >/= 30.0 - For Hypertension Hypertension Risk Guidelines: Hypertension Low Risk: Systolic <120 and Diastolic <80. Hypertension Moderate Risk: Systolic 120-139 and Diastolic 80-89. Hypertension High Risk: Systolic >/= 140 and Diastolic >/= 90 - For Sedentary Lifestyle Sedentary Lifestyle Risk Guidelines: Sedentary Lifestyle Low Risk: >/= 1,500 kcal/week. Sedentary Lifestyle Moderate Risk: 700-1,499 kcal/week. Sedentary Lifestyle High Risk: < 700 kcal/week - For Depression Depression Risk Guidelines: Depression Low Risk: Not clinically depressed. Depression Moderate Risk: Mildly depressed. Depression High Risk: Clinically depressed - Family History Family History: Family History (Last Reviewed 10/10/17 @ 15:45 by Hina Minor) Mother CAD (coronary artery disease) Motivation - Motivation to Participate On a scale of 1 to 10, how prepared are you to commit to attending program?: 10 What do you see as barriers to successfully being able to complete the program?: none aware of. What do you see as the benefits of succesfully completing the program? In other words, what do you hope to get out of participating in the program?: getting back in shape, getting heart healthy again, increase function. Are there issues you are dealing with that will interfere with completing the program?: none Do you have a spouse or signficant other, family or friends who will help support you to complete the program?: yes. 11/23/17 1106 <Electronically signed by Brien Sweeney CRT, RCP, CLIFTON> Date Brien Sweeney CRT, RCP, CLIFTON Outcome assessment reviewed. Exercise plan approved as documented. Treatment plan and goals support patient needs/abilities. Continue with current plan. I certify the patient demonstrates improvement and remains willing and capable of participation. the patient continues to benefit from cardiac rehab services/training. The patient may continue at current intensity, endurance and modality and progress per protocol. 11/27/17 0810 <Electronically signed by Alfredo Jenkins MD> Cosigner Signature: Date Alfredo Jenkins MD CC: Signed 12 LEAD ELECTROCARDIOGRAM Observed: 11/13/2017 Status: F Source: [place] 3:15 PM [facility] [place] [facility] [address] 12 Lead EKG 11/10/17 0521 MR#: [id number] Acct: [id number] Name: SEVERIANO HERNANDEZ Rep #: [id number] : 1955 62 From: Ivan Mccall MD Attending Dr: Ashelfah,Ghasem Status: DIS IN Ordering Dr: Alfredo Jenkins MD Date: 11/10/17 Location: ICU Sex: M C Admitted: 11/08/17 Test Reason : AM EKG Blood Pressure : / mmHG Vent. Rate : 065 BPM Atrial Rate : 065 BPM P-R Int : 166 ms QRS Dur : 102 ms QT Int : 468 ms P-R-T Axes : 065 027 106 degrees QTc Int : 486 ms Normal sinus rhythm ST AND T wave abnormality, consider lateral ischemia Prolonged QT Abnormal ECG When compared with ECG of 09-NOV-2017 04:59, MANUAL COMPARISON REQUIRED, DATA IS UNCONFIRMED Confirmed by IVAN MCCALL MD ([id number]), manuscript editor ASHLEY DALTON ([id number]) on 11/13/2017 3:15:47 PM Referred By: Cliff Taylor Confirmed By:IVAN MCCALL MD 11/13/17 1125 Date Ivan Mccall MD CC: Alfredo Jenkins MD; Mercedes Morris; Cliff Taylor MD Signed DISCHARGE SUMMARY Observed: 11/10/2017 Status: F Source: [place] 12:02 PM [facility] [place] Medical Records Department [address] [place] [address] Discharge Summary 11/10/17 1154 MR#: [id number] Acct: [id number] Name: SEVERIANO HERNANDEZ Rep #: [id number] : 1955 62 From: Mercedes Morris MD PCP: Cliff Taylor MD, Chi Status: DIS IN Y Location: ICU [id number] Discharge Date and Diagnosis Date of Admission: 11/08/17 Date of Discharge: 11/10/17 - Primary Discharge Diagnosis #1 acute non-ST elevation VA, status post cardiac cath, PTCA and drug-eluting stent to RCA. #2 acute on chronic systolic CHF/ischemic cardiomyopathy. - Secondary Discharge Diagnosis Chronic Problems (Last Reviewed 10/10/17 @ 15:45 by Hina Minor) White coat syndrome with hypertension (Chronic) RBBB (Chronic) Premature ventricular contraction (Chronic) Nonrheumatic aortic valve insufficiency (Chronic) Atherosclerosis of coronary artery of [place] heart without angina pectoris (Chronic) CABG x 3 EMWS-nfiv-am-side-Mid LAD and end-to-side to the apical segment, Free ABIMAEL-OM, SVG-PDA of the RCA 08/12/2015 H/O coronary artery bypass surgery (Chronic 08/12/15) CABG x 3 WYLX-svki-nw-side-Mid LAD and end-to-side to the apical segment, Free ABIMAEL-OM, SVG-PDA of the RCA 08/12/2015 Non-alcoholic fatty liver disease (Chronic) Hyperlipidemia (Chronic) Hypertension (Chronic) Hospital Course and Treatment Imaging Results: Clinical Impression(s) from Imaging Studies Chest CTA 11/07/17 23:13 IMPRESSION: No evidence of pulmonary embolism. Bilateral pleural effusions larger on the right side. No focal infiltrate is seen. Mild atelectatic changes. Electronically Signed: Gabe Madsen MD at 0:15 EDT Tel , Service support , Chest X-Ray 11/08/17 05:55 IMPRESSION: Mild residual CHF although there has been a moderate degree of improvement as compared to prior study. Electronically Signed: Gerber Jovel MD at 8:54 EDT Tel [phone], Service support , Dr. Jenkins, cardiology. Procedures: 2-D Echocardiogram, Cardiac catheterization, EKG Summary of Care Provided: Patient seen and examined on the day of discharge and appeared to be stable to be discharged home. He has normal symptoms, no more shortness of breath. Denied chest pain. Vital signs are stable. - Physical Exam General: Alert, Oriented x3, Cooperative, No apparent distress. HEENT: Atraumatic, PERRLA, EOMI. Neck: Supple, No JVD, Negative Carotid Bruits, Trachea Midline, Thyroid Normal. Lungs: Clear to auscultation, Normal air movement, No rhonchi, No wheeze, No rales. Cardiovascular: Regular rate, Regular Rhythm, Normal S1, Normal S2, PMI Normal. Abdomen: Bowel Sounds Present, Soft, Non Tender, Non-Distended, No Hepato-splenomegaly. Extremities: No clubbing, No cyanosis, No edema Skin: No rashes, No breakdown Neurological: Neuro grossly intact Vital Signs are stable. Hospital course: The patient is a 62 year old M who was sent by his PCP because of shortness of breath and he was found to have borderline elevated troponin and blood work that was done and that they he was diagnosed with acute non-ST elevation VA as well as acute on chronic systolic CHF. His EKG revealed no significant acute ischemic changes. His troponin was borderline elevated and flat. His chest x-ray showed findings consistent with acute CHF. He was treated with IV Lasix for diuresis, started on Cozaar, Aldactone and continued on Coreg for standard treatment for CHF. He underwent cardiac catheterization on the was found to have single-vessel disease to RCA status post PTCA and drug-eluting stent to RCA. 2D echocardiogram revealed ejection fraction of 30-35% and on cardiac catheterization, his ejection fraction was 25%. With IV Lasix for diuresis, patient symptoms improved and his respiratory status stabilized as well as his volume status. His vital signs were stable throughout admission. Cardiology stated that patient may need to have prophylactic ICD placed in the future if medical therapy failed to improve his ejection fraction. Patient discharged home in a stable medical condition, discharged on aspirin, Brilinta, Coreg, losartan, Lasix and Aldactone, he was not started on CHRIS inhibitors because he is allergic to CHRIS inhibitors, recommended follow- up with PCP in 1 week and follow-up with cardiology according to Dr. Jenkins recommendation. Discharge Activity: Return to Normal Activity Weight Bearing Status: Weight bearing as tolerated Call your doctor if you observe: Fever of 101 or Higher, Shortness of breath, Dizziness, Fainting spells, Swelling in the ankles, Chest pain, Increased palpitations (irregular heartbeat), Uncontrolled pain Home Medications: Medications to take at Discharge aspirin 81 mg tablet,delayed release 81 mg PO DAILY 05/24/17 carvedilol 3.125 mg tablet 3.125 mg PO BID #180 tab 05/24/17 Furosemide [Lasix] 40 mg PO DAILY #90 tab 11/10/17 Losartan Potassium [Cozaar] 50 mg PO BID #90 tab 11/10/17 Spironolactone [Aldactone] 25 mg PO DAILY #30 tab 11/10/17 Ticagrelor [Brilinta] 90 mg PO BID #90 tab 11/10/17 Following Prescrptions Were Given to Patient: Furosemide [Lasix] 40 mg PO DAILY #90 tab Spironolactone [Aldactone] 25 mg PO DAILY #30 tab Losartan Potassium [Cozaar] 50 mg PO BID #90 tab Ticagrelor [Brilinta] 90 mg PO BID #90 tab Primary Care Physician: Cliff Taylor Chi, MD [Primary Care Provider] - Please follow up with your Primary Care Physician in: 1 week. Please Follow Up With: Alfredo Jenkins MD When: as scheduled. Patient Instructions: Discharge Instructions for Heart Failure Disposition: Home Minutes spent on discharge:: 32 Patient Condition:: Stable Medical Necessity - Tobacco Use Smoking Status: Never smoker Tobacco Use: Non-smoker Meaningful Use Info Meaningful Use Diagnoses (Choose all that apply): CHF - CHF CHRIS/ARB ordered at discharge?: Yes Documented LVEF (%): 30 Code Visit Inpatient E AND M: [id number] Disch Hosp 11/10/17 1202 <Electronically signed by Mercedes Morris MD> Date Mercedes Morris MD Cosigner Signature (if applicable): Date CC: Alfredo Jenkins MD; Mercedes Morris; Cliff Taylor MD Signed 12 LEAD ELECTROCARDIOGRAM Observed: 11/10/2017 Status: F Source: [place] 10:05 AM [facility] [place] Cardiovascular Services [address] [place] [address] 12 Lead EKG 11/09/17 0459 MR#: [id number] Acct: [id number] Name: SEVERIANO HERNANDEZ Rep #: [id number] : 1955 62 From: Ivan Mccall MD Attending Dr: Mercedes Morris Status: DIS IN Ordering Dr: Alfredo Jenkins MD Date: 11/09/17 Location: ICU Sex: M C Admitted: 11/08/17 Test Reason : AM EKG Blood Pressure : / mmHG Vent. Rate : 072 BPM Atrial Rate : 072 BPM P-R Int : 166 ms QRS Dur : 104 ms QT Int : 466 ms P-R-T Axes : 073 067 108 degrees QTc Int : 510 ms Normal sinus rhythm Nonspecific ST and T wave abnormality Prolonged QT Abnormal ECG When compared with ECG of 08-NOV-2017 15:08, MANUAL COMPARISON REQUIRED, DATA IS UNCONFIRMED Confirmed by IVAN MCCALL MD ([id number]), manuscript editor WANG AMAYA ([id number]) on 11/10/2017 10:04:27 AM Referred By: Cliff Taylor Confirmed By:IVAN MCCALL MD 11/10/17 1004 Date Ivan Mccall MD CC: Alfredo Jenkins MD; Mercedes Morris; Cliff Taylor MD Signed 12 LEAD ELECTROCARDIOGRAM Observed: 11/10/2017 Status: F Source: [place] 10:05 AM [facility] [place] Cardiovascular Services [address] [place] [address] 12 Lead EKG 11/08/17 1508 MR#: [id number] Acct: [id number] Name: SEVERIANO HERNANDEZ Rep #: [id number] : 1955 62 From: Ivan Mccall MD Attending Dr: Mercedes Morris Status: DIS IN Ordering Dr: Alfredo Jenkins MD Date: 11/08/17 Location: ICU Sex: M C Admitted: 11/08/17 Test Reason : Blood Pressure : / mmHG Vent. Rate : 082 BPM Atrial Rate : 082 BPM P-R Int : 164 ms QRS Dur : 104 ms QT Int : 452 ms P-R-T Axes : 074 089 102 degrees QTc Int : 528 ms Normal sinus rhythm Left atrial enlargement Nonspecific ST and T wave abnormality Prolonged QT Abnormal ECG When compared with ECG of 08-NOV-2017 05:48, MANUAL COMPARISON REQUIRED, DATA IS UNCONFIRMED Confirmed by IVAN MCCALL MD ([id number]), manuscript editor WANG AMAYA ([id number]) on 11/10/2017 10:04:42 AM Referred By: Cliff Taylor Confirmed By:IVAN MCCALL MD 11/10/17 1004 Date Ivan Mccall MD CC: Alfredo Jenkins MD; Mercedes Morris; Cliff Taylor MD Signed 12 LEAD ELECTROCARDIOGRAM Observed: 11/10/2017 Status: F Source: [place] 9:45 AM [facility] REPOSITORY [facility] Cardiovascular Services [address] [place] [address] 12 Lead EKG 11/08/17 0548 MR#: [id number] Acct: [id number] Name: SEVERIANO HERNANDEZ Rep #: [id number] : 1955 62 From: Ivan Mccall MD Attending Dr: Mercedes Morris Status: ADM IN Ordering Dr: Mick Emanuel DO Date: 11/08/17 Location: ICU Sex: M C Admitted: 11/08/17 Test Reason : AM Blood Pressure : / mmHG Vent. Rate : 088 BPM Atrial Rate : 088 BPM P-R Int : 166 ms QRS Dur : 104 ms QT Int : 434 ms P-R-T Axes : 071 078 102 degrees QTc Int : 525 ms Normal sinus rhythm Prolonged QT Abnormal ECG No previous ECGs available Confirmed by IVAN MCCALL MD ([id number]), manuscript editor WANG AMAYA ([id number]) on 11/10/2017 9:45:19 AM Referred By: JUSTINA Confirmed By:IVAN MCCALL MD 11/10/17 0945 Date Ivan Mccall MD CC: Mercedes Morris; Mick Emanuel DO; Cliff Taylor MD Signed 12 LEAD ELECTROCARDIOGRAM Observed: 11/10/2017 Status: F Source: [place] 8:58 AM [facility] Cardiovascular Services [address] [place] [address] 12 Lead EKG 11/07/17 2306 MR#: [id number] Acct: [id number] Name: SEVERIANO HERNANDEZ Rep #: [id number] : 1955 62 From: Ivan Mccall MD Attending Dr: Mercedes Morris Status: ADM IN Ordering Dr: Brian Romeo MD Date: 11/07/17 Location: ICU Sex: M C Admitted: 11/08/17 Test Reason : SOB Blood Pressure : / mmHG Vent. Rate : 094 BPM Atrial Rate : 094 BPM P-R Int : 166 ms QRS Dur : 102 ms QT Int : 422 ms P-R-T Axes : 069 067 103 degrees QTc Int : 527 ms Normal sinus rhythm Prolonged QT Abnormal ECG Confirmed by EMILY GUY, IVAN ([id number]), manuscript editor WANG AMAYA ([id number]) on 11/10/2017 8:57:21 AM Referred By: Cliff Taylor Confirmed By:IVAN MCCALL MD 11/10/17 0857 Date Ivan Mccall MD CC: Mercedes Morris; Brian Romeo MD; Cliff Taylor MD Signed DISCHARGE INSTRUCTION Observed: 11/10/2017 Status: F Source: [place] 8:29 AM [facility] Medical Records Department [address] [place] [address] Instructions for Home/Discharge Instructions 11/10/17 0827 MR#: [id number] Acct: [id number] Name: SEVERIANO HERNANDEZ Rep #: [id number] : 1955 62 From: Mercedes Morris MD PCP: Cliff Taylor MD, Chi Status: ADM IN You will use the following diet at home:: Cardiac Your food should be the consistency of: Regular Discharge Activity: Return to Normal Activity Weight Bearing Status: Weight bearing as tolerated Call your doctor if you observe: Fever of 101 or Higher, Shortness of breath, Dizziness, Fainting spells, Swelling in the ankles, Chest pain, Increased palpitations (irregular heartbeat), Uncontrolled pain Instructions: Discharge Instructions for Heart Failure Allergies/Adverse Reactions: Allergies pravastatin sodium [From Pravachol] Allergy (Verified 11/07/17 22:18) Unknown atorvastatin calcium [From Lipitor] Adverse Reaction (Verified 11/07/17 22:18) Pain in joints gemfibrozil Adverse Reaction (Verified 11/07/17 22:18) myalgia Medications to take at Discharge aspirin 81 mg tablet,delayed release 81 mg PO DAILY 05/24/17 carvedilol 3.125 mg tablet 3.125 mg PO BID #180 tab 05/24/17 Furosemide [Lasix] 40 mg PO DAILY #90 tab 11/10/17 Losartan Potassium [Cozaar] 50 mg PO BID #90 tab 11/10/17 Spironolactone [Aldactone] 25 mg PO DAILY #30 tab 11/10/17 Ticagrelor [Brilinta] 90 mg PO BID #90 tab 11/10/17 The following prescriptions were given: Furosemide [Lasix] 40 mg PO DAILY #90 tab Spironolactone [Aldactone] 25 mg PO DAILY #30 tab Losartan Potassium [Cozaar] 50 mg PO BID #90 tab Ticagrelor [Brilinta] 90 mg PO BID #90 tab Primary Care Physician: Cliff Taylor Chi, MD [Primary Care Provider] - Please follow up with your Primary Care Physician in: 1 week. Please Follow Up With: Alfredo Jenkins MD When: as scheduled. 11/10/17 0829 <Electronically signed by Mercedes Morris MD> Date Mercedes Morris MD CC: Alfredo Jenkins MD; Cliff Taylor MD BASIC METABOLIC Collected: 11/10/2017 Status: F Source: [place] PROFILE (BMP) 3:45 AM [facility] [facility] [place] TYPE CODE TESTS RESULT OUT OF RANGE REFERENCE UNITS LAB L501.0100 74-106 mg/dL High GLU 126 Result Comment: Fasting Glucose result greater than or equal to 126 mg/dL suggests DIABETES MELLITUS per A.D.A. criteria. Please note revised GLUCOSE reference range effective 2017. LAB L501.1000 7-18 mg/dL High BUN 29 LAB L501.1100 0.70-1.30 mg/dL Normal CREAT,SERUM 1.10 Result Comment: The validity of the calculated GFR AND GFRAA in patients over 70 years has not been determined. Clinical correlation is essential. LAB L501.1110 >60 mL/min Normal EST GFR 71 Result Comment: Non- GFR Calc LAB L501.1115 >60 mL/min Normal EST GFR - AA 86 Result Comment: GFR Calc LAB L501.1255 ml/min Normal Estimated CRCL 70.05 LAB L501.1300 10-20 RATIO High BUN/CRE 26.4 LAB L501.2200 8.5-10 mg/dL Normal .1 CA 8.5 LAB L501.5300 136-14 mmol/L Normal 5 NA 142 LAB L501.5600 3.5-5. mmol/L Normal 1 K 3.9 LAB L501.5900 98-107 mmol/L High CL 108 LAB L501.6100 21.0-3 mmol/L Normal 2.0 CO2 27.0 LAB L501.6200 5-15 Normal GAP 7 Performed By: #### L500.2500 #### [facility] [address] [place], [address] CBC W/DIFF, AUTOMATED Collected: 11/09/2017 Status: F Source: [place] 4:30 AM [facility] TYPE CODE TESTS RESULT OUT OF RANGE REFERENCE UNITS LAB L100.1000 4.4-11.0 K/mm3 Normal WBC 10.6 LAB L100.1200 4.6-6.2 M/mm3 Low RBC 4.24 LAB L100.1300 13.0-16.5 g/dl Low HGB 12.5 LAB L100.1400 40-54 % Low HCT 37.5 LAB L100.1500 80-94 fL Normal MCV 88.4 LAB L100.1600 27.0-32.0 pg Normal MCH 29.5 LAB L100.1700 32-36 g/gl Normal MCHC 33.3 LAB L100.1810 11.6-14.6 % High RDW CV 15.1 LAB L100.1820 35.1-43.9 fl High RDW SD 48.1 LAB L100.1900 150-450 K/mm3 Normal PLT 340 LAB L100.2000 6.2-12.0 fl Normal MPV 9.2 LAB L100.2100 47-70 % High NEUT% 80.7 LAB L100.2200 19-41 % Low LY% 11.7 LAB L100.2300 0-10 % Normal MONO% 7.1 LAB L100.2400 0-5 % Normal EO% 0.2 LAB L100.2500 0-1 % Normal BASO% 0.1 LAB L100.2550 0.0-0.9 % Normal IM GRAN % 0.200 Result Comment: IG% - Immature Granulocytes (promyelocytes, myelocytes and metamyelocytes) > 1% indicates that a LEFT SHIFT is Present. LAB L100.2620 2.0-7.7 X10 3/uL High Absolute Neut 8.6 LAB L100.2720 0.83-4.51 X10 3/ul Normal Absolute Lymph 1.24 Performed By: #### L100.0100 #### [facility] [address] [place], [address] BASIC METABOLIC Collected: 11/09/2017 Status: F Source: [place] PROFILE ([facility]) 4:30 AM [facility] [place] TYPE CODE TESTS RESULT OUT OF RANGE REFERENCE UNITS LAB L501.0100 74-106 mg/dL High GLU 115 Result Comment: Fasting Glucose result from 100 to 125 mg/dL suggests IMPAIRED HOMEOSTASIS per A.D.A. criteria. Please note revised GLUCOSE reference range effective 2017. LAB L501.1000 7-18 mg/dL High BUN 22 LAB L501.1100 0.70-1.30 mg/dL Normal CREAT,SERUM 1.23 Result Comment: The validity of the calculated GFR AND GFRAA in patients over 70 years has not been determined. Clinical correlation is essential. LAB L501.1110 >60 mL/min Normal EST GFR 63 Result Comment: Non- GFR Calc LAB L501.1115 >60 mL/min Normal EST GFR - AA 76 Result Comment: GFR Calc LAB L501.1255 ml/min Normal Estimated CRCL 66.59 LAB L501.1300 10-20 RATIO Normal BUN/CRE 17.9 LAB L501.2200 8.5-10 mg/dL Normal .1 CA 8.6 LAB L501.5300 136-14 mmol/L Normal 5 NA 145 LAB L501.5600 3.5-5. mmol/L Normal 1 K 3.9 LAB L501.5900 98-107 mmol/L High CL 109 LAB L501.6100 21.0-3 mmol/L Normal 2.0 CO2 28.0 LAB L501.6200 5-15 Normal GAP 8 Performed By: #### L500.2500, L500.4100 #### [facility] [address] [facility] [place], [place], [id number] LIPID PROFILE Collected: 11/09/2017 Status: F Source: [place] 4:30 AM [facility] [facility] [place] TYPE CODE TESTS RESULT OUT OF RANGE REFERENCE UNITS LAB L501.4900 200 mg/dL Normal CHOL 136 Result Comment: <200 mg/dL Desirable 200-240 mg/dL Borderline >240 mg/dL High Risk LAB L501.5000 mg/dL Normal TRIG 101 Result Comment: The drugs N-Acetylcysteine and Metamizole may falsely depress this assay. Serum Triglycerides Reference Interval Normal <150 mg/dL Borderline high 150 - 199 mg/dL High 200 - 499 mg/dL Very High > or = 500 mg/dL LAB L501.6400 mg/dL Normal HDL 40 Result Comment: The drugs N-Acetylcysteine and Metamizole may falsely depress this assay. Reference Range HDL <40 mg/dL Low HDL Cholesterol HDL >or= 60 mg/dL High HDL Cholesterol LAB L501.6500 0-130 mg/dL Normal LDL 76 LAB L501.6600 5-40 mg/dL Normal VLDL 20 Performed By: #### L500.2500, L500.4100 #### [facility] [address] [facility] [place], [place], [id number] CPK TOTAL, CREATINE Collected: 11/08/2017 Status: F Source: [place] 9:20 PM [facility] TYPE CODE TESTS RESULT OUT OF RANGE REFERENCE UNITS LAB L501.3620 39-308 U/L Normal CPK TOTAL 146 Performed By: #### L501.3620 #### [facility] [address], [address] CPK TOTAL, CREATINE Collected: 11/08/2017 Status: F Source: [place] 5:50 PM [facility] [place] TYPE CODE TESTS RESULT OUT OF RANGE REFERENCE UNITS LAB L501.3620 39-308 U/L Normal CPK TOTAL 167 Performed By: #### L501.3620 #### [facility] [address] [place], [address] M R STAPH AUREUS Collected: 11/08/2017 Status: F Source: [place] DNA BY PCR 4:42 PM [facility] [facility] [place] TYPE CODE TESTS RESULT OUT OF RANGE REFERENCE UNITS LAB L8200.1100 Negative Normal MRSA Negative RESULT Performed By: #### L8200.1000 #### [facility] [address] [place], [address] ECHOCARDIOGRAM COMPLETE Observed: 11/08/2017 Status: F Source: [place] 3:53 PM [facility] [facility] Cardiovascular Services [address] [place] [address] Echo Complete 11/08/17 1148 MR#: [id number] Acct: [id number] Name: SEVERIANO HERNANDEZ Rep #: [id number] : 1955 62 From: Alfredo Jenkins MD Attending Dr: Mercedes Morris Status: ADM IN Ordering Dr: Mick Emanuel DO Date: 11/08/17 Location: ICU Sex: M C Admitted: 11/08/17 Reason For Study: S/P VA Procedure This was a 2D Doppler, Color Flow transthoracic echocardiogram. Exam performed portable in patient room. Left Ventricle Moderately dilated left ventricle. The estimated ejection fraction is 30-35 %. Stage 2 diastolic dysfunction. There is moderate to severe global hypokinesis of the left ventricle. Right Ventricle Moderately dilated right ventricle. Mild global right ventricular systolic dysfunction. Atria The left atrium is moderately enlarged. The right atrium is moderately enlarged. Normal atrial septum. Mitral Valve Mild diffuse mitral valve thickening. Mild-Moderate (1-2+) mitral valve insufficiency. Tricuspid Valve Normal tricuspid valve. Trivial tricuspid valve insufficiency. Right ventricular systolic pressure estimated to be 37 mmHg. Mild pulmonary hypertension. Aortic Valve Trisinus/trileaflet aortic valve. Mild diffuse aortic valve thickening. Mild-Moderate (1-2+) eccentric aortic valve insufficiency. Pulmonic Valve Normal pulmonic valve. Trivial pulmonic valve insufficiency. Great Vessels Normal aortic root. Normal arch. The inferior vena cava is dilated. No collapse of the inferior vena cava. Pericardium/Pleural No pericardial effusion. MMode/2D Measurements AND Calculations LVIDd: 5.8 cm IVSd: 0.85 cm Ao root diam: 3.7 cm LVIDs: 4.9 cm LVPWd: 0.94 cm LA dimension: 4.6 cm RVDd: 4.2 cm FS: 16.5 % LAV(MOD-bp): 83.6 ml LVAd ap4: 49.1 cm2 SV(MOD-sp4): 73.8 ml LAV(MOD-bp) Indexed: 38.0 ml/m2 EDV(MOD-sp4): 195.0 ml LAV(MOD-sp2): 100.6 ml EDV(sp4-el): 199.5 ml LAV(MOD-sp4): 64.6 ml LVAs ap4: 34.5 cm2 ESV(MOD-sp4): 121.3 ml ESV(sp4-el): 117.2 ml EF(MOD-sp4): 37.8 % EF(sp4-el): 41.2 % SV(sp4-el): 82.2 ml LA A4 area: 23.1 cm2 RA A4 area: 22.2 cm2 Time Measurements MV dec time: 0.15 sec Doppler Measurements AND Calculations MV E max mariusz: 131.2 cm/sec Lat Peak E' Mariusz: 4.6 cm/sec Med Peak E' Mariusz: 4.3 cm/sec MV A max mariusz: 32.6 cm/sec E/E' lat: 28.5 E/E' med: 30.6 MV E/A: 4.0 Ao V2 max: 118.9 cm/sec AI max mariusz: 503.0 cm/sec LV V1 max: 96.7 cm/sec Ao max P.7 mmHg AI max P.2 mmHg LV V1 max P.7 mmHg AI dec slope: 472.7 cm/sec2 AI P1/2t: 311.7 msec TR max mariusz: 284.5 cm/sec TR max P.4 mmHg Interpretation Summary Moderately dilated left ventricle. The estimated ejection fraction is 30-35 %. Stage 2 diastolic dysfunction. There is moderate to severe global hypokinesis of the left ventricle. Moderately dilated right ventricle. Mild global right ventricular systolic dysfunction. The left atrium is moderately enlarged. The right atrium is moderately enlarged. Mild-Moderate (1-2+) mitral valve insufficiency. Trivial tricuspid valve insufficiency. Right ventricular systolic pressure estimated to be 37 mmHg. Mild pulmonary hypertension. Mild-Moderate (1-2+) eccentric aortic valve insufficiency. Compared to echo report dated 07/22/2015, LV function has decreased from 55% to 35%. AI and MR have remained the same. Ordering Physician: Mick Emanuel Referring Physician: Cliff Taylor Chi Performed By: Charito Chow, RDCS, RVT 11/08/17 1553 Date Alfredo Jenkins MD CC: Mercedes Morris; Mick Emanuel DO; Cliff Taylor MD Date Dictated: 11/08/17 1148 Date Transcribed: 11/08/17 155 Production Technologist: Signed CONSULTATION Observed: 11/08/2017 Status: F Source: [place] 3:23 PM [facility] [place] [facility] Medical Records Department [address] [place] [address] Consultation 11/08/17 1514 MR#: [id number] Acct: [id number] Name: SEVERIANO HERNANDEZ Rep #: [id number] : 1955 62 From: Alfredo Jenkins MD PCP: Cliff Taylor MD, Chi Status: ADM IN Y Location: ICU [id number] Problem List (1) Shortness of breath Status: Acute (2) Elevated troponin Status: Acute (3) Premature ventricular contraction Status: Chronic (4) Atherosclerosis of coronary artery of [place] heart without angina pectoris Status: Chronic Comment: CABG x 3 KTWF-attg-nr-side-Mid LAD and end-to-side to the apical segment, Free ABIMAEL-OM, SVG-PDA of the RCA 08/12/2015 (5) H/O coronary artery bypass surgery Status: Chronic Comment: CABG x 3 EWYY-rstp-fw-side-Mid LAD and end-to-side to the apical segment, Free ABIMAEL-OM, SVG-PDA of the RCA 08/12/2015 (6) Hypertension Status: Chronic Reason for Consult Date of Consultation: 11/08/17 Reason for Consultation: Congestive heart failure, coronary artery disease status post bypass, hypertension, hypercholesterolemia, LV dysfunction History of Present Illness: The patient is a 62 year old M patient of mine, with a history of hypertension, hypercholesterolemia, coronary artery disease status post three-vessel bypass surgery [place] [address] Viramontes at [facility]. At that time he received a sequential REYES to mid and distal LAD, saphenous vein graft to the obtuse marginal, and saphenous vein graft to the PDA. At that time his LV function was reportedly within normal limits. Patient returned with atypical chest pain underwent a stress test in 2016 which was negative for inducible ischemia. Patient reports that since August 2017 he has had progressively worsening dyspnea on exertion and shortness of breath which he attributed to a possible lung infection with exposure to moldy hay. Patient took some shmb-dil-nryixxw herbal medications based on oregano, and had minimal improvement. Most recent the patient drove to [place] in [place] followed by a plane ride to [facility] followed by a [address] back to [facility] pickup his son. Patient did get out once in a while but did not stay overnight. Patient now presents with shortness of breath, chest pain, and inability to walk more than 100 feet. Patient presented to the emergency room and his EKG showed normal sinus rhythm, increased QT corrected interval, no acute changes were noted. His troponins were mildly elevated. Chest CT given his long car ride to rule out pulmonary embolism was negative for pulmonary embolism however demonstrated bilateral pleural effusions, right greater than left. Patient received IV Lasix therapy and his shortness of breath had improved. Given the patient's constellation of symptoms and risk factors I referred him for a left heart catheterization which demonstrated patent sequential REYES to the mid and distal LAD, patent saphenous vein graft to the obtuse marginal #1, and occluded saphenous vein graft to the RCA. Patient had nonobstructive disease of his ramus intermedius which was not correctable with PCI given the small size of the vessels, and his right coronary artery was stented today to improve overall coronary flow. Of interest, his LV function was profoundly depressed with an EF around 20% which is a new finding. In addition he had markedly elevated LVEDP of around 23 mmHg. Previous EF prior to his bypass was 45%. [] Past Medical History Allergies/Adverse Reactions: Allergies pravastatin sodium [From Pravachol] Allergy (Verified 11/07/17 22:18) Unknown atorvastatin calcium [From Lipitor] Adverse Reaction (Verified 11/07/17 22:18) Pain in joints gemfibrozil Adverse Reaction (Verified 11/07/17 22:18) myalgia Home Medications: Ambulatory Orders Medication Instructions Recorded Past Medical History (Chronic Problems): Chronic Problems (Last Reviewed 10/10/17 @ 15:45 by Hina Minor) White coat syndrome with hypertension (Chronic) RBBB (Chronic) Premature ventricular contraction (Chronic) Nonrheumatic aortic valve insufficiency (Chronic) Atherosclerosis of coronary artery of [place] heart without angina pectoris (Chronic) CABG x 3 GXIF-xjpj-ch-side-Mid LAD and end-to-side to the apical segment, Free ABIMAEL-OM, SVG-PDA of the RCA 08/12/2015 H/O coronary artery bypass surgery (Chronic 08/12/15) CABG x 3 RQOT-vkav-rr-side-Mid LAD and end-to-side to the apical segment, Free ABIMAEL-OM, SVG-PDA of the RCA 08/12/2015 Non-alcoholic fatty liver disease (Chronic) Hyperlipidemia (Chronic) Hypertension (Chronic) Surgical History: coronary bypass surgery, tonsillectomy Psychiatric History: No pertinent psych hx - *Family History Maternal Family History: Family History (Last Reviewed 10/10/17 @ 15:45 by Hina Minor) Mother CAD (coronary artery disease) History Items: Heart Disease Paternal Family History: Family History (Last Reviewed 10/10/17 @ 15:45 by Hina Minor) Mother CAD (coronary artery disease) History Items: Unknown Lives: Spouse/ Significant Other Smoking Status: Never smoker Tobacco Use: Non-smoker Alcohol: None Drugs: None Review of Systems - Review of Systems General: Denies: Fever, Night Sweats, Fatigue Cardiovascular: Reports: Chest Pressure, Shortness of Breath, Shortness of Breath with Exertion. Denies: Chest Discomfort, Orthopnea, PND, Peripheral Edema, Palpitations, Lightheadedness, Dizziness, Near Syncope, Syncope Respiratory: Denies: Cough, Sputum Production, Hemoptysis Gastrointestinal: Denies: Hematemesis, Hematochezia, Melena Genitourinary: Denies: Dysuria, Hematuria Skin: Denies: Rash Subjectve: Patient sitting in bed, no acute distress Objective: Vital Signs Temp Pulse Resp BP Pulse Ox 97.6 F L 78 16 144/75 H 94 11/08/17 11:50 11/08/17 11:50 11/08/17 11:50 11/08/17 11:50 11/08/17 11:50 Oxygen Flow Rate (L/min) 2 Oxygen Delivery Method Room Air Weight: 212 lb 8.41 oz Body Mass Index (BMI) 29.4 General: Awake, Alert, Oriented x 3 HEENT: PERRL, EOMI, Sclera Non Icteric Neck: Supple, Good ROM, No Lymph Node Enlargement Lungs: Diminished Right Base Cardiovascular: Regular Rhythm, Normal S1, Normal S2, No Murmurs, No Rubs, No Gallops Vascular: No Carotid Bruits, Normal Femoral Pulses, Normal Radial Pulses, Normal Dorsalis Pedal Pulse, Normal Posterior Tibial Pulses Abdomen: Bowel Sounds Present, Soft, Non Tender, No HSM, No Organomegaly Extremities: No Cyanosis, No Clubbing, No edema Neurological: No Focal Motor or Sensory Deficit 11/08/17 03:05: Troponin I 0.249 H 11/08/17 03:30: Urine Color Straw, Urine Clarity Clear, Urine pH 7.0, Ur Specific [place] 1.005, Urine Protein Negative, Urine Glucose (UA) Normal, Urine Ketones Negative, Urine Occult Blood Negative, Urine Nitrite Negative, Urine Bilirubin Negative, Urine Urobilinogen Normal, Ur Leukocyte Esterase Negative, Urine RBC 0 SEEN, Urine WBC 0 SEEN 11/08/17 05:38: WBC 9.8, RBC 4.55 L, Hgb 13.1, Hct 39.5 L, MCV 86.8, MCH 28.8, MCHC 33.2, RDW 15.0 H, RDW Differential 47.4 H, Plt Count 350, MPV 9.2, Immature Gran % (Auto) 0.200, Neut % (Auto) 90.6 H, Lymph % (Auto) 4.3 L, Alcorn % (Auto) 4.8, Eos % (Auto) 0.0, Baso % (Auto) 0.1, Absolute Neuts (auto) 8.9 H, Total Counted Not Reportable 11/08/17 05:38: PT 16.2 H, INR 1.3, APTT 34.0 11/08/17 05:38: Sodium 142, Potassium 3.9, Chloride 107, Carbon Dioxide 24.0, Anion Gap 11, BUN 16, Creatinine 1.06, Est GFR (MDRD) Af Amer 90, Est GFR (MDRD) Non-Af 75, BUN/Creatinine Ratio 15.1, Glucose 134 H, Calcium 8.5, Troponin I 0.234 H Rhythm: EKG: ECHO: Pending Stress Test: Cardiac Cath: As above PCI: CT Surgery: Holter monitor: EPS: PPM: CXR: Chest CT Scan: Assessment/Plan 1. Coronary artery disease: The patient presents with congestive heart failure symptoms, and appears to be in acute on chronic exacerbation of CHF superimposed upon pleural effusion, and non-STEMI. I recommended the patient undergo a left heart catheterization which was performed by me this afternoon which demonstrated patent grafts except for his saphenous vein graft to his RCA. His [place] RCA stenosis was corrected with 2 drug- eluting stents. His ejection fraction has diminished from 45% in the past 2 around 20% on today's exam with elevated LVEDP of approximately 23 mmHg. I recommend the patient continue baby aspirin and Brilinta for life given his [place] coronary artery disease and LV dysfunction. In addition we will continue IV diuresis to optimize his hemogram if pressures. We will add Aldactone 25 mg p.o. daily, and titrate up his Coreg. Recommend discontinuation of lisinopril given his dry hacking cough and switching him to Cozaar 50 mg p.o. daily and titrating up from there. Would recommend also Lasix IV 40 mg twice daily until he reaches his dry weight followed by 40 mg a day at least. In addition he will undergo a 1500 cc fluid restriction. If after revascularization, medical therapy, and cardiac rehab his LV function does not improve past 30%, I will refer him to Dr. Mera for prophylactic AICD therapy. At this point I would recommend holding off on intervention of his ramus intermedius disease as his distal vessels are quite small and are not accommodative to stenting. 2. Hyperlipidemia: Unfortunately the patient is unable to take statins or gemfibrozil due to allergies. 3. Discussed with Dr. Morris. Thank you very much for the opportunity to precipitate in the cardiac care of your patient. Consultation time took place between 9 and 9:30 AM. Code Visit Inpatient E AND M: 14117 Init Hosp L2 11/08/17 1523 <Electronically signed by Alfredo Jenkins MD> Date Alfredo Jenkins MD Cosigner Signature (if applicable): Date CC: Alfredo Jenkins MD; Cliff Taylor MD Signed CPK TOTAL, CREATINE Collected: 11/08/2017 Status: F Source: [place]IN[place] 3:15 PM [facility] [place] TYPE CODE TESTS RESULT OUT OF RANGE REFERENCE UNITS LAB L501.3620 39-308 U/L Normal CPK TOTAL 172 Performed By: #### L501.3620 #### [facility] [address] [place], [address] ACT ACTIVATED CLOTTING Collected: 11/08/2017 Status: F Source: [place] TIME 2:29 PM [facility] TYPE CODE TESTS RESULT OUT OF RANGE REFERENCE UNITS LAB L9100.0100 74-137 sec High ACTk CLOT 169 TIME Performed By: #### L9100.0100 #### [facility] Point of Care [address] [place] [address] TROPONIN-I Collected: 11/08/2017 Status: F Source: [place] 5:38 AM [facility] Order Comment: 'TROP' Serial specimen #1, #2 or #3: 3 'TROP' Serial specimen #1, #2, #3, or #4: 2 TYPE CODE TESTS RESULT OUT OF RANGE REFERENCE UNITS LAB L501.4010 <0.045 ng/mL High 0.234 TROPONIN-I Result Comment: TROPONIN-I EXPECTED VALUES <0.045 Negative 0.045 - 0.590 Consistent with Cardiac Damage > OR = 0.600 Critical Value Not every elevated troponin is indicative of VA. These values should be used with clinical judgement in examining the patient's clinical picture for diagnosis. To establish a diagnosis of VA versus myocardial injury, there must be a demonstrated rise and/or fall in the troponin values, in addition to ischemic symptoms, EKG changes, new regional wall motion abnormality, and/or angiographical evidence. PLEASE NOTE: REFERENCE RANGES EDITED 17 Performed By: #### L501.4010, L500.2500 #### [facility] [address] [place], [address] BASIC METABOLIC Collected: 11/08/2017 Status: F Source: [place] PROFILE (BMP) 5:38 AM [facility] [place] Order Comment: 'TROP' Serial specimen #1, #2 or #3: 3 'TROP' Serial specimen #1, #2, #3, or #4: 2 TYPE CODE TESTS RESULT OUT OF RANGE REFERENCE UNITS LAB L501.0100 74-106 mg/dL High GLU 134 Result Comment: Fasting Glucose result greater than or equal to 126 mg/dL suggests DIABETES MELLITUS per A.D.A. criteria. Please note revised GLUCOSE reference range effective 2017. LAB L501.1000 7-18 mg/dL Normal BUN 16 LAB L501.1100 0.70-1.30 mg/dL Normal CREAT,SERUM 1.06 Result Comment: The validity of the calculated GFR AND GFRAA in patients over 70 years has not been determined. Clinical correlation is essential. LAB L501.1110 >60 mL/min Normal EST GFR 75 Result Comment: Non- GFR Calc LAB L501.1115 >60 mL/min Normal EST GFR - AA 90 Result Comment: GFR Calc LAB L501.1255 ml/min Normal Estimated CRCL 77.27 LAB L501.1300 10-20 RATIO Normal BUN/CRE 15.1 LAB L501.2200 8.5-10 mg/dL Normal .1 CA 8.5 LAB L501.5300 136-14 mmol/L Normal 5 NA 142 LAB L501.5600 3.5-5. mmol/L Normal 1 K 3.9 LAB L501.5900 98-107 mmol/L Normal CL 107 LAB L501.6100 21.0-3 mmol/L Normal 2.0 CO2 24.0 LAB L501.6200 5-15 Normal GAP 11 Performed By: #### L501.4010, L500.2500 #### [facility] [address] [place], [address] CBC W/DIFF, AUTOMATED Collected: 11/08/2017 Status: F Source: [place] 5:38 AM [facility] [facility] [place] TYPE CODE TESTS RESULT OUT OF RANGE REFERENCE UNITS LAB L100.1000 4.4-11.0 K/mm3 Normal WBC 9.8 LAB L100.1200 4.6-6.2 M/mm3 Low RBC 4.55 LAB L100.1300 13.0-16.5 g/dl Normal HGB 13.1 LAB L100.1400 40-54 % Low HCT 39.5 LAB L100.1500 80-94 fL Normal MCV 86.8 LAB L100.1600 27.0-32.0 pg Normal MCH 28.8 LAB L100.1700 32-36 g/gl Normal MCHC 33.2 LAB L100.1810 11.6-14.6 % High RDW CV 15.0 LAB L100.1820 35.1-43.9 fl High RDW SD 47.4 LAB L100.1900 150-450 K/mm3 Normal PLT 350 LAB L100.2000 6.2-12.0 fl Normal MPV 9.2 LAB L100.2100 47-70 % High NEUT% 90.6 LAB L100.2200 19-41 % Low LY% 4.3 LAB L100.2300 0-10 % Normal MONO% 4.8 LAB L100.2400 0-5 % Normal EO% 0.0 LAB L100.2500 0-1 % Normal BASO% 0.1 LAB L100.2550 0.0-0.9 % Normal IM GRAN % 0.200 Result Comment: IG% - Immature Granulocytes (promyelocytes, myelocytes and metamyelocytes) > 1% indicates that a LEFT SHIFT is Present. LAB L100.2620 2.0-7.7 X10 3/uL High Absolute Neut 8.9 LAB L100.2720 0.83-4.51 X10 3/ul Low Absolute Lymph 0.42 LAB L100.4500 Normal SMEAR COMMENT SCANNED Performed By: #### L100.0100 #### [facility] [address] [place], [address] PROTHROMBIN TIME W/INR Collected: 11/08/2017 Status: F Source: [place] 5:38 AM [facility] [place] TYPE CODE TESTS RESULT OUT OF RANGE REFERENCE UNITS LAB L300.4150 11.7-14.9 SECONDS High PROTIME 16.2 LAB L300.4200 Normal INR 1.3 Performed By: #### L300.3900, L300.4310 #### [facility] [address], [address] PARTIAL THROMBOPLAST Collected: 11/08/2017 Status: F Source: [place] TIME 5:38 AM [facility] [place] TYPE CODE TESTS RESULT OUT OF RANGE REFERENCE UNITS LAB L300.4310 24.1-36.2 Seconds Normal PTT 34.0 Performed By: #### L300.3900, L300.4310 #### [facility] [address] [place], [address] HISTORY AND PHYSICAL Observed: 11/08/2017 Status: F Source: [place] EXAM 5:05 AM [facility] [place] [facility] Medical Records Department [address] [place] [address] History and Physical 11/08/17 0454 MR#: [id number] Acct: [id number] Name: SEVERIANO HERNANDEZ Rep #: [id number] : 1955 62 From: Mick Emanuel DO PCP: [place] GUY,Cliff Rojo Status: ADM IN Location: [place] [address] Problem List (1) Shortness of breath Status: Acute (2) Elevated troponin Status: Acute History of Present Illness Date of Admission: 11/08/17 Chief Complaint: Elevated troponin, shortness of breath The patient is a 62 year old M who was seen in the emergency room at [facility] after being instructed to go there for evaluation after an office visit today by his PCP revealed his troponin to be elevated at 0.44 and his beta natruretic peptide to be elevated at 689. Patient had seen his PCP today with complaints of extreme shortness of breath over the last week and mild to moderate shortness of breath over the last 3 weeks. Patient had no complaints of any cough with sputum production, no complaints of fever, chills, or hemoptysis. He has a past history of coronary artery bypass in July 2015, patient had a stress test in 2016 which was negative for reversible ischemia. Workup in the emergency room revealed the patient's troponin to be 0.23, CT of the chest was performed which showed no evidence of pulmonary emboli, evidence of mild bronchiectasis was noted, there was a moderate right pleural effusion and a small left pleural effusion along with marked interstitial changes in the lungs. Patient's beta natruretic peptide was not rechecked. EKG was obtained which showed a normal sinus rhythm without evidence of ischemic changes. Patient was not hypoxic on room air. Patient was given IV Lasix in the emergency room, he will be admitted to PCU for a non-STEMI and CHF. I will maintain him on a small amount of IV Lasix twice a day, echocardiogram will be obtained and cardiology will be consulted. Past Medical History Past Medical History (Chronic Problems): Chronic Problems (Last Reviewed 10/10/17 @ 15:45 by Hina Minor) White coat syndrome with hypertension (Chronic) RBBB (Chronic) Premature ventricular contraction (Chronic) Nonrheumatic aortic valve insufficiency (Chronic) Atherosclerosis of coronary artery of [place] heart without angina pectoris (Chronic) CABG x 3 DSJV-zhso-ij-side-Mid LAD and end-to-side to the apical segment, Free ABIMAEL-OM, SVG-PDA of the RCA 08/12/2015 H/O coronary artery bypass surgery (Chronic 08/12/15) CABG x 3 HQKW-owzy-sz-side-Mid LAD and end-to-side to the apical segment, Free ABIMAEL-OM, SVG-PDA of the RCA 08/12/2015 Non-alcoholic fatty liver disease (Chronic) Hyperlipidemia (Chronic) Hypertension (Chronic) Medical History: Medical History (Last Reviewed 10/10/17 @ 15:45 by Hina Minor) White coat syndrome with hypertension (Chronic) I10 RBBB (Chronic) I45.10 Premature ventricular contraction (Chronic) I49.3 Nonrheumatic aortic valve insufficiency (Chronic) I35.1 Atherosclerosis of coronary artery of [place] heart without angina pectoris (Chronic) I25.10 CABG x 3 NWBU-avba-qe-side-Mid LAD and end-to-side to the apical segment, Free ABIMAEL-OM, SVG-PDA of the RCA 08/12/2015 Non-alcoholic fatty liver disease (Chronic) K76.0 Hyperlipidemia (Chronic) E78.5 Hypertension (Chronic) I10 Allergies pravastatin sodium [From Pravachol] Allergy (Verified 11/07/17 22:18) Unknown atorvastatin calcium [From Lipitor] Adverse Reaction (Verified 11/07/17 22:18) Pain in joints gemfibrozil Adverse Reaction (Verified 11/07/17 22:18) myalgia Home Medications: Ambulatory Orders Medication Instructions Recorded Surgical History: Surgical History (Last Reviewed 10/10/17 @ 15:45 by Hina Minor) H/O coronary artery bypass surgery (Chronic) Onset Date: 08/12/15 Z95.1 CABG x 3 WXGR-vnax-vp-side-Mid LAD and end-to-side to the apical segment, Free ABIMAEL-OM, SVG-PDA of the RCA 08/12/2015 History of esophagogastroduodenoscopy (EGD) Onset Date: 2014 Z98.890 Surgical History: coronary bypass surgery, tonsillectomy Psychiatric History: No pertinent psych hx Lives: Spouse/ Significant Other Smoking Status: Never smoker Tobacco Use: Non-smoker Alcohol: None Drugs: None - *Family History Maternal Family History: Family History (Last Reviewed 10/10/17 @ 15:45 by Hina Minor) Mother CAD (coronary artery disease) History Items: Heart Disease Paternal Family History: Family History (Last Reviewed 10/10/17 @ 15:45 by Hina Minor) Mother CAD (coronary artery disease) History Items: Unknown Review of Systems Constitutional: Reports: Fatigue. Denies: Anorexia, Chills, Fever, Night Sweats, Malaise, Weakness, Weight Change Eyes: Denies: Blurred vision, Cataracts, Conjunctivae Inflammation, Double vision, Drainage HEENT: Denies: Difficulty Swallowing, Dysphasia, Ear Pain, Eye Pain, Head Aches, Hearing Changes, Nasal bleeding, Nasal Congestion, Post Nasal Drip Cardiovascular: Reports: Light Headedness. Denies: Chest Pain, Claudication, Chest Pressure, Chest Tightness, Edema, Heaviness, Orthopnea, Palpitations, Paroxysmal Noc. Dyspnea, Syncope Respiratory: Reports: Shortness of Breath, Shortness of breath upon exertion. Denies: Cough, Hemoptysis, Pleuritic Pain, Shortness of breath at rest, Sputum production, Wheezing Gastrointestinal: Denies: Abdominal Pain, Constipation, Diarrhea, Hematemesis, Hematochezia, Nausea Genitourinary: Denies: Frequency, Hematuria, Nocturia, Retention Musculoskeletal: Denies: Back Pain, Foot Pain, Hand Pain, Joint swelling, Joint Tenderness, Leg Pain Skin: Denies: Dryness, Jaundice, Pruritis, Rash Neurological: Denies: Blurred vision, Double vision, Change in Speech, Focal weakness, Headaches, Incoordination Psychiatric: Denies: Anxiety, Depression Endocrine: Denies: Change in Body Habitus, Heat/ Cold Intolerance, Polyuria, Hx of Irradiation VTE Information - Inpt Only VTE Present on Admission: No VTE Mechan Device Prophylaxis: None VTE Pharm Prophylaxis ordered?: Yes Patient Problems: Active and Suspected Problems (Last Reviewed 10/10/17 @ 15:45 by Hina [place]) Shortness of breath (Acute) Elevated troponin (Acute) - Physical Exam General: Alert, Oriented x3, Cooperative, No apparent distress, Well developed, Well nourished HEENT: Atraumatic, PERRLA, EOMI, Normocephalic Oral: Moist Mucosa Neck: Supple, No JVD, Negative Carotid Bruits, No Nuchal Rigidity, Trachea Midline, Thyroid Normal Size and Texture Lungs: Clear to auscultation, Normal air movement, No rhonchi, No wheeze, No rales Cardiovascular: Regular rate, Regular Rhythm, Normal S1, Normal S2, No murmurs, PMI Normal, No rub noted, No Gallop Abdomen: Bowel Sounds Present, Soft, Non Tender, Non-Distended, No hernias noted Extremities: No clubbing, No cyanosis, Capillary Refill Less than 3 Seconds, Edema - Mild pitting edema is noted in the lower legs bilaterally Skin: No rashes, No breakdown Musculoskeletal: No Tenderness to Palpation of Joints or Extremities Neurological: Cranial nerves II-XII grossly intact, Neuro grossly intact, Muscle tone normal, Sensory exam intact to light touch and pain Psych/Mental Status: Normal Affect, Appropriate, Alert and oriented to time, place, person, mood and affect Vital Signs Temp Pulse Resp BP Pulse Ox 97.6 F L 98 16 169/91 H 97 11/08/17 02:21 11/08/17 03:02 11/08/17 02:21 11/08/17 02:25 11/08/17 02:28 Oxygen Delivery Method Room Air Weight: 98.4 kg Body Mass Index (BMI) 29.4 Laboratory Tests Past 24 Hrs Troponin I 0.249 H Urine Color Straw Urine Clarity Clear Urine pH 7.0 Assessment/Plan All Active Problems (Last Reviewed 10/10/17 @ 15:45 by Hina [place]) Shortness of breath (Acute) Elevated troponin (Acute) #1 elevated troponins indicating probable [id number] will be admitted to PCU, enzymes will be cycled, patient will be seen by cardiology in consultation, he was given 1 dose of Lovenox 1 mg/kg subcu, he was also given Brilinta 180 mg p.o. Cardiology will decide if patient will require a cardiac catheterization. Echocardiogram will be obtained, patient will be monitored #2 Probable mild congestive heart failure-it is unknown whether this is systolic or diastolic in nature, echocardiogram will be obtained, patient will be maintained on a small amount of IV Lasix and monitored. #3 dyspnea-probably secondary to mild CHF #4 coronary artery disease by history Code Visit Inpatient E AND M: [id number] Init Hosp L3 11/08/17 0505 <Electronically signed by Mick Emanuel DO> Date Mick Emanuel DO Cosigner Signature: Date (if applicable) CC: Mick Emanuel DO; Cliff Taylor MD Signed URINALYSIS, COMPLETE Collected: 11/08/2017 Status: F Source: [place] 3:30 AM [facility] [facility] [place] Order Comment: How was Urine Obtained? CLEAN CATCH TYPE CODE TESTS RESULT OUT OF RANGE REFERENCE UNITS LAB L400.3000 Yellow COLOR Normal Straw LAB L400.3050 Clear Normal CLARITY Clear LAB L400.3200 Normal mg/dl Normal GLUCOSE, UR Normal LAB L400.3300 Negative mg/dL Normal BILIRUBIN URINE Negative LAB L400.3400 Negative mg/dl Normal KETONE UR Negative LAB L400.3465 1.002-1.030 Normal SP.GR. DIPSTX 1.005 LAB L400.3550 5.0 - 8.0 pH UR Normal 7.0 LAB L400.3600 Negative mg/dl PROT Normal DIPSTX Negative LAB L400.3700 Normal mg/dl Normal UROBILI Normal LAB L400.3750 Negative Normal NITRITE UR Negative LAB L400.3780 Negative /ul Normal OCCULT BLOOD-UR Negative LAB L400.3800 Negative /ul LEUK Normal ESTERASE Negative LAB L400.4050 0-5 /hpf WBC 0 Normal SEEN LAB L400.4100 0-5 /hpf 0 Normal RBC-UA SEEN LAB L400.4150 0-5 /hpf SQUAM 0 Normal EPI SEEN LAB L400.4300 None Seen /hpf 0 Normal BACTERIA SEEN LAB L400.4350 <or=2+ /hpf 0 Normal MUCUS, URINE SEEN Performed By: #### L400.0001 #### [facility] [address] [place], [address] CHEST 1 VIEW Observed: 11/08/2017 Status: F Source: [place] (PORTABLE) 2:53 AM [facility] [place] [facility] Imaging Services [address] [place] [address] Chest 1 View (Portable) MR#: [id number] Acct: [id number] Name: SEVERIANO HERNANDEZ Rep #: [id number] : 1955 M 62 From: Gerber Jovel MD PCP: [place] GUY,Cliff Rojo Status: ADM IN Study: Chest 1 View (Portable) Date of Exam: 11/08/17 Exam# [id number] Ordering Dr: Mick Emanuel DO STUDY: X-RAY CHEST REASON FOR EXAM: Male, 62 years old. Chest pain. CHF. TECHNIQUE: Single AP portable view of the chest. COMPARISON: Comparison is made with prior study dated November 07, 2017. FINDINGS: EKG electrodes are seen. The previously seen diffuse increased interstitial markings have improved. Residual changes persist. There is evidence of pulmonary vascular congestion and mild CHF. Blunting of the left costophrenic angle. Sternal cerclage wires and vascular clips are present from a prior sternotomy and coronary artery bypass graft procedure (CABG). Mild cardiomegaly. Normal mediastinum and shaista. Normal visualized pulmonary arteries. There is atherosclerotic tortuosity of the aortic arch and descending thoracic aorta. There are diffuse degenerative changes of the visualized thoracic spine. There is degenerative osteoarthritis of the bilateral shoulders. There is no demonstrated abnormality of the visualized soft tissue structures of the upper abdomen. RAD/Chest 1 View (Portable) IMPRESSION: Mild residual CHF although there has been a moderate degree of improvement as compared to prior study. Electronically Signed: Gerber Jovel MD at 8:54 EDT Tel [phone], Service support , CC: Mick Emanuel DO; Cliff Taylor MD Production Technologist: Signed EMERGENCY DEPARTMENT Observed: 11/08/2017 Status: F Source: [place] SUMMARY 12:36 AM [facility] [facility] [place] Medical Records Department [address] [place] [address] Emergency Department Summary 11/08/17 0034 MR#: [id number] Acct: [id number] Name: SEVERIANO HERNANDEZ Rep #: [id number] : 1955 62 From: Brian Romeo MD PCP: Cliff Taylor MD, Chi Status: REG ER - ER Visit Summary Date of Service: 11/08/17 Chief Complaint: Shortness of breath History of Present Illness: The patient is a 62 M who presents with shortness of breath for about 3 weeks. He had initially attributed this to some moldy hay that he had been in contact with. He complains of dyspnea on exertion and nonproductive cough. His symptoms are relieved with rest. He denies any associated chest pain nausea or diaphoresis. He does have a history of coronary artery disease and prior bypass but denies history of congestive heart failure. Also of note 1 week ago he flew out to [place] and then drove back. He has noticed some leg swelling. He was seen by his primary care physician today who obtained an outpatient workup which returned notable for elevated d-dimer BNP troponin and findings consistent with CHF on chest x-ray so was sent here for further evaluation. Physical Examination: Initial blood pressure 208/114 heart rate 107 no distress pulse ox 98% on room air Moist mucous membranes Heart regular rhythm tachycardia Lungs are clear Abdomen soft Alert Test Results: EKG shows sinus rhythm at a rate of 94. CBC BMP unremarkable. Troponin is 0.231 which is decreased from labs earlier today. CTA was obtained due to recent travel and positive d-dimer which showed bilateral pleural effusions but no evidence of pulmonary embolism. Emergency Department Course and Treatment: Patient was given aspirin on arrival here. He was placed on oxygen. He was given IV Lasix for acute congestive heart failure. He will require further workup including serial enzymes and echocardiogram, cardiology consultation. Patient was discussed with the hospitalist will be admitted. Treatment Plan: [] Disposition: Admit Impression: Acute congestive heart failure Coronary artery disease Elevated troponin This note was generated with [employer] dictation software. It may contain incorrect words, spelling, and punctuation that were not noted in review of the chart prior to signing ED Disposition - Plan for ED Patient: Chief Complaint: Shortness of Breath Referrals: Cliff Taylor Chi, MD [Primary Care Provider] - What to do if you have Problems For any increased pain, shortness of breath, bleeding, nausea or vomiting, chest pain, or any unexpected problems, contact your Primary Care Provider. Call [facility] ([phone]) or report to the closest Emergency Room. Call 911 if necessary. 11/08/17 0036 <Electronically signed by Brian Romeo MD> Date Brian Romeo MD Cosigner Signature (If Indicated): Date CC: Cliff Taylor MD CBC W/DIFF, AUTOMATED Collected: 11/07/2017 Status: F Source: [place] 11:45 PM [facility] REPOSITORY TYPE CODE TESTS RESULT OUT OF RANGE REFERENCE UNITS LAB L100.1000 4.4-11.0 K/mm3 Normal WBC 7.7 LAB L100.1200 4.6-6.2 M/mm3 Normal RBC 4.61 LAB L100.1300 13.0-16.5 g/dl Normal HGB 13.3 LAB L100.1400 40-54 % Normal HCT 40.2 LAB L100.1500 80-94 fL Normal MCV 87.2 LAB L100.1600 27.0-32.0 pg Normal MCH 28.9 LAB L100.1700 32-36 g/gl Normal MCHC 33.1 LAB L100.1810 11.6-14.6 % High RDW CV 14.9 LAB L100.1820 35.1-43.9 fl High RDW SD 47.5 LAB L100.1900 150-450 K/mm3 Normal PLT 347 LAB L100.2000 6.2-12.0 fl Normal MPV 9.6 LAB L100.2100 47-70 % High NEUT% 95.0 LAB L100.2200 19-41 % Low LY% 4.0 LAB L100.2300 0-10 % Normal MONO% 0.9 LAB L100.2400 0-5 % Normal EO% 0.0 LAB L100.2500 0-1 % Normal BASO% 0.0 LAB L100.2550 0.0-0.9 % Normal IM GRAN % 0.100 Result Comment: IG% - Immature Granulocytes (promyelocytes, myelocytes and metamyelocytes) > 1% indicates that a LEFT SHIFT is Present. LAB L100.2620 2.0-7.7 X10 3/uL Normal Absolute Neut 7.4 LAB L100.2720 0.83-4.51 X10 3/ul Low Absolute Lymph 0.31 LAB L100.4500 Normal SMEAR COMMENT SCANNED Result Comment: LYMPHOPENIA NOTED Performed By: #### L100.0100 #### [facility] [address] [place], [address] BASIC METABOLIC Collected: 11/07/2017 Status: F Source: [place] PROFILE (BMP) 11:45 PM [facility] [facility] [place] TYPE CODE TESTS RESULT OUT OF RANGE REFERENCE UNITS LAB L501.0100 74-106 mg/dL High GLU 209 Result Comment: Glucose result greater than or equal to 200 mg/dL suggests DIABETES MELLITUS per A.D.A. criteria. Please note revised GLUCOSE reference range effective 2017. LAB L501.1000 7-18 mg/dL Normal BUN 17 LAB L501.1100 0.70-1.30 mg/dL Normal CREAT,SERUM 1.15 Result Comment: The validity of the calculated GFR AND GFRAA in patients over 70 years has not been determined. Clinical correlation is essential. LAB L501.1110 >60 mL/min Normal EST GFR 68 Result Comment: Non- GFR Calc LAB L501.1115 >60 mL/min Normal EST GFR - AA 82 Result Comment: GFR Calc LAB L501.1255 ml/min Normal Estimated CRCL 71.23 LAB L501.1300 10-20 RATIO Normal BUN/CRE 14.8 LAB L501.2200 8.5-10 mg/dL Normal .1 CA 8.9 LAB L501.5300 136-14 mmol/L Normal 5 NA 140 LAB L501.5600 3.5-5. mmol/L Normal 1 K 4.0 LAB L501.5900 98-107 mmol/L High CL 108 LAB L501.6100 21.0-3 mmol/L Normal 2.0 CO2 22.0 LAB L501.6200 5-15 Normal GAP 10 Performed By: #### L500.2500, L501.4010 #### [facility] [address] [place], [address] TROPONIN-I Collected: 11/07/2017 Status: F Source: [place] 11:45 PM [facility] [place] TYPE CODE TESTS RESULT OUT OF RANGE REFERENCE UNITS LAB L501.4010 <0.045 ng/mL High 0.231 TROPONIN-I Result Comment: TROPONIN-I EXPECTED VALUES <0.045 Negative 0.045 - 0.590 Consistent with Cardiac Damage > OR = 0.600 Critical Value Not every elevated troponin is indicative of VA. These values should be used with clinical judgement in examining the patient's clinical picture for diagnosis. To establish a diagnosis of VA versus myocardial injury, there must be a demonstrated rise and/or fall in the troponin values, in addition to ischemic symptoms, EKG changes, new regional wall motion abnormality, and/or angiographical evidence. PLEASE NOTE: REFERENCE RANGES EDITED 17 Performed By: #### L500.2500, L501.4010 #### [facility] [address] [place], [address] CTA CHEST W/WO Observed: 11/07/2017 Status: F Source: [place] CONTRAST 11:14 PM [facility] [facility] Imaging Services [address] [place] [address] CTA Chest W/WO Contrast MR#: [id number] Acct: [id number] Name: SEVERIANO HERNANDEZ Rep #: [id number] : 1955 M 62 From: Gabe Madsen MD PCP: Brandon GUY,Cliff Rojo Status: REG ER Study: CTA Chest W/WO Contrast Date of Exam: 11/07/17 Exam# [id number] Ordering Dr: Brian Romeo MD STUDY: CTA CHEST REASON FOR EXAM: Male, 62 years old. Shortness of breath and cough for 3 weeks. Elevated d-dimer. RADIATION DOSAGE (If Supplied By Facility): CTDIvol = ( 17.21 ) mGy, DLP = ( 702.18 ) mGycm TECHNIQUE: The examination was performed with the intravenous administration of 100ML ml of Isovue 370 contrast material. Post-processing of the angiographic images was performed, with multiplanar reformation. Individualized dose optimization techniques were used for this CT. COMPARISON: None. FINDINGS: Normal enhancement of the main pulmonary artery and right and left pulmonary arteries. Normal enhancement of the bilateral peripheral pulmonary arteries. There is no demonstrated pulmonary embolism. There is atherosclerotic tortuosity of the aortic arch and descending thoracic aorta. There is suboptimal enhancement of the thoracic aorta. Normal heart and pericardium. Sternal cerclage wires are present from a prior sternotomy. There are coronary calcifications. There is no evidence of pericardial effusion. There are few small mediastinal and left hilar nodes. There is no evidence of adenopathy. Normal visualized trachea and bronchi. The lungs are well expanded. There are prominent interstitial markings bilaterally and mild bronchiectatic changes. There are mild atelectatic changes in the lung bases. No focal infiltrate is seen. There is moderate right and small left pleural effusions. Normal chest wall structures. There are degenerative changes of thoracic spine. The visualized portions of the upper abdomen demonstrate questionable small gallstones. The gallbladder is contracted. The stomach is distended. CT/CTA Chest W/WO Contrast IMPRESSION: No evidence of pulmonary embolism. Bilateral pleural effusions larger on the right side. No focal infiltrate is seen. Mild atelectatic changes. Electronically Signed: Gabe Madsen MD at 0:15 EDT Tel , Service support , CC: Brian Romeo MD; Cliff Taylor MD Production Technologist: Signed CHEST PA AND LATERAL Observed: 11/07/2017 Status: F Source: [place] 12:47 PM [facility] [facility] Imaging Services [address] [place] [address] Chest PA and Lateral MR#: [id number] Acct: [id number] Name: SEVERIANO HERNANDEZ Rep #: [id number] : 1955 M 62 From: Gerber Jovel MD PCP: Cliff Taylor MD, Chi Status: REG CLI Study: Chest PA and Lateral Date of Exam: 11/07/17 Exam# [id number] Ordering Dr: Cliff Taylor MD STUDY: X-RAY CHEST REASON FOR EXAM: Male, 62 years old. History of Martins's lung. TECHNIQUE: PA and lateral views of the chest. COMPARISON: Comparison is made with prior study dated November 06, 2015. FINDINGS: Since prior study, there is evidence of diffuse increased interstitial markings in both lungs. This is suggestive of a mild degree of CHF. There is blunting of both costophrenic angles posteriorly. Sternal cerclage wires and vascular clips are present from a prior sternotomy and coronary artery bypass graft procedure (CABG). Mild cardiomegaly. Normal mediastinum and shaista. Normal visualized pulmonary arteries. There is atherosclerotic tortuosity of the aortic arch and descending thoracic aorta. Normal visualized thoracic spine. Normal visualized ribs, clavicles, and shoulders. There is no demonstrated abnormality of the visualized soft tissue structures of the upper abdomen. RAD/Chest PA and Lateral IMPRESSION: Mild cardiomegaly. Diffuse increased interstitial markings in both lungs with blunting of both costophrenic angles. This is suggestive of mild CHF. Electronically Signed: Gerber Jovel MD at 13:43 EDT Tel [phone], Service support , CC: Cliff Taylor MD Production Technologist: Signed CBC W/DIFF, AUTOMATED Collected: 11/07/2017 Status: F Source: [place] 12:35 PM [facility] [place] TYPE CODE TESTS RESULT OUT OF RANGE REFERENCE UNITS LAB L100.1000 4.4-11.0 K/mm3 Normal WBC 6.5 LAB L100.1200 4.6-6.2 M/mm3 Low RBC 4.39 LAB L100.1300 13.0-16.5 g/dl Low HGB 12.7 LAB L100.1400 40-54 % Low HCT 38.8 LAB L100.1500 80-94 fL Normal MCV 88.4 LAB L100.1600 27.0-32.0 pg Normal MCH 28.9 LAB L100.1700 32-36 g/gl Normal MCHC 32.7 LAB L100.1810 11.6-14.6 % High RDW CV 15.2 LAB L100.1820 35.1-43.9 fl High RDW SD 49.1 LAB L100.1900 150-450 K/mm3 Normal PLT 307 LAB L100.2000 6.2-12.0 fl Normal MPV 9.8 LAB L100.2100 47-70 % Normal NEUT% 67.3 LAB L100.2200 19-41 % Normal LY% 22.0 LAB L100.2300 0-10 % Normal MONO% 8.4 LAB L100.2400 0-5 % Normal EO% 1.6 LAB L100.2500 0-1 % Normal BASO% 0.5 LAB L100.2550 0.0-0.9 % Normal IM GRAN % 0.200 Result Comment: IG% - Immature Granulocytes (promyelocytes, myelocytes and metamyelocytes) > 1% indicates that a LEFT SHIFT is Present. LAB L100.2620 2.0-7.7 X10 3/uL Normal Absolute Neut 4.4 LAB L100.2720 0.83-4.51 X10 3/ul Normal Absolute Lymph 1.42 Performed By: #### L100.0100 #### [facility] [address] [place], [address] BASIC METABOLIC Collected: 11/07/2017 Status: F Source: [place] PROFILE (BMP) 12:35 PM [facility] [facility] [place] Order Comment: 'TROP' Serial specimen #1, #2, #3, or #4: 1 TYPE CODE TESTS RESULT OUT OF RANGE REFERENCE UNITS LAB L501.0100 74-106 mg/dL High GLU 110 Result Comment: Fasting Glucose result from 100 to 125 mg/dL suggests IMPAIRED HOMEOSTASIS per A.D.A. criteria. Please note revised GLUCOSE reference range effective 2017. LAB L501.1000 7-18 mg/dL Normal BUN 14 LAB L501.1100 0.70-1.30 mg/dL Normal CREAT,SERUM 1.15 Result Comment: The validity of the calculated GFR AND GFRAA in patients over 70 years has not been determined. Clinical correlation is essential. LAB L501.1110 >60 mL/min Normal EST GFR 68 Result Comment: Non- GFR Calc LAB L501.1115 >60 mL/min Normal EST GFR - AA 82 Result Comment: GFR Calc LAB L501.1300 10-20 RATIO Normal BUN/CRE 12.2 LAB L501.2200 8.5-10.1 mg/dL CA Normal 9.1 LAB L501.5300 136-145 mmol/L NA Normal 142 LAB L501.5600 3.5-5.1 mmol/L K Normal 4.1 LAB L501.5900 98-107 mmol/L CL Normal 107 LAB L501.6100 21.0-32.0 mmol/L Normal CO2 26.0 LAB L501.6200 5-15 Normal GAP 9 Performed By: #### L500.2500, L501.3620, L501.4010 #### [facility] [address] [place], [address] CPK TOTAL, CREATINE Collected: 11/07/2017 Status: F Source: [place] KINASE 12:35 PM [facility] [place] Order Comment: 'TROP' Serial specimen #1, #2, #3, or #4: 1 TYPE CODE TESTS RESULT OUT OF RANGE REFERENCE UNITS LAB L501.3620 39-308 U/L Normal CPK TOTAL 207 Performed By: #### L500.2500, L501.3620, L501.4010 #### [facility] [address] [place], [address] TROPONIN-I Collected: 11/07/2017 Status: F Source: [place] 12:35 PM [facility] [place] Order Comment: 'TROP' Serial specimen #1, #2, #3, or #4: 1 TYPE CODE TESTS RESULT OUT OF RANGE REFERENCE UNITS LAB L501.4010 <0.045 ng/mL High 0.447 TROPONIN-I Result Comment: TROPONIN-I EXPECTED VALUES <0.045 Negative 0.045 - 0.590 Consistent with Cardiac Damage > OR = 0.600 Critical Value Not every elevated troponin is indicative of VA. These values should be used with clinical judgement in examining the patient's clinical picture for diagnosis. To establish a diagnosis of VA versus myocardial injury, there must be a demonstrated rise and/or fall in the troponin values, in addition to ischemic symptoms, EKG changes, new regional wall motion abnormality, and/or angiographical evidence. PLEASE NOTE: REFERENCE RANGES EDITED 17 Performed By: #### L500.2500, L501.3620, L501.4010 #### [facility] [address], [address] BNP,B-TYPE NATRIURETIC Collected: 11/07/2017 Status: F Source: [place] PEPTIDE 12:35 PM [facility] [place] TYPE CODE TESTS RESULT OUT OF RANGE REFERENCE UNITS LAB L503.6620 0-100 pg/mL High B-TYPE 689.5 CAYLA PEP Performed By: #### L503.6620 #### [facility] [address] [place], [place], [address] D-DIMER QUANTITATIVE Collected: 11/07/2017 Status: F Source: [place] (DVT/PE) 12:35 PM [facility] [place] Order Comment: CRITICAL VALUE VERIFIED. CALLED TO OLEG JOHNSON AT DR TAYLOR'S OFFICE 11/07/17 1722 Denise Roth. RESULTS READ BACK BY SAME . TYPE CODE TESTS RESULT OUT OF RANGE REFERENCE UNITS LAB L300.8000 0.27-0.49 FEU/ug/m High alert D-DIMER 0.77 QUANT Result Comment: D-Dimer ELEVATED (>0.49): Additional studies and clinical assessments are indicated to conclude diagnosis of: Deep Vein Thrombosis (DVT) or Pulmonary Embolism (PE) Performed By: #### L300.8000 #### [facility] [address] [place], [place], [address] ASPERGILLUS ANTIBODIES Collected: 11/07/2017 Status: F Source: [place] 12:35 PM [facility] [place] TYPE CODE TESTS RESULT OUT OF RANGE REFERENCE UNITS LAB L3500.3700 Neg:<1:1 Asp. Normal fumigatus Negative LAB L3500.3800 Neg:<1:1 Asp. Normal flavus Negative LAB L3500.3900 Neg:<1:1 Asp. Normal niger Negative Performed By: #### L3500.3600, L3600.5100 #### [facility] (refer to report for specific site) refer to report for address and phone number MYOGLOBIN, SERUM Collected: 11/07/2017 Status: F Source: [place] 12:35 PM [facility] [place] TYPE CODE TESTS RESULT OUT OF RANGE REFERENCE UNITS LAB L3600.5100 28-72 ng/mL High 80 Myoglobin, Ser Result Comment: Performed at: - [address] [id number] Contact Worker Lithography: Cb Babb MD, Phone: [phone] Performed at: [facility] [address] [id number] Contact Worker Lithography: Carlos Betancourt PhD, Phone: [phone] Performed By: #### L3500.3600, L3600.5100 #### [facility] (refer to report for specific site) refer to report for address and phone number CARDIOLOGY VISIT Observed: 10/10/2017 Status: F Source: [place] REPORT 4:38 PM [facility] [facility] [place] [facility] [address] [place] [address] OFFICE VISIT Date of Service: 10/10/17 MR#: [id number] Acct: [id number] Name: SEVERIANO HERNANDEZ Rep #: [id number] : 1955 Provider: Alfredo Jenkins MD Age/Sex: 62/M Location: [facility] Status: Signed HPI HPI Chief Complaint: Routine f/u Details: Referring physician: Dr. Taylor Mr. 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 He has no family history of coronary disease in his first-degree relatives and has had hypertension since 1997 for which she has been treated with HCTZ. In 2013 the patient sustained a blunt force injury with a wood plank to his right abdomen, and his workup thus far has been negative. He is occasionally plagued by random pain to that area which radiates up into his chest. In addithe was found to have poor control of his hypertension as well as palpitations and PVCs documented on EKG dated 07/06/15 in his PCPs office. Patient's HCTZ was discontinued and his lisinopril was increased. During our initial visit, from a cardiac standpoint he denied any exertional chest pain, angina, shortness of breath or dyspnea on exertion. He is quite involved with his own healthcare, and follows up and reads on a number of topics. He denies any caffeine, tobacco, and is a nondiabetic. In addition he admits to snoring to the point where his has to turn him over, but he sleeps much better and does not snore when he is on his side. He has never been evaluated with a sleep study. Patient underwent a stress test on 07/29/15 which was found to be abnormal. This precipitated a catheterization which discovered that patient had multivessel coronary disease. He was then transferred to [facility] and after several logistical issues, was sent home and then returned Several days later. He underwent subsequent coronary bypass grafting 3 with a REYES to the LAD and apical segment as a sequential graft, a free ABIMAEL to the obtuse marginal, and a saphenous vein graft to the PDA of the RCA. Patient was subsequently discharged, and has completed cardiac rehab without difficulty. He continues to exercise on elliptical machine and has had approximately 45 pound weight loss since his bypass surgery. He was initially placed on Lipitor but due to myalgias has had this reduced down to 20 mg but still had myalgias particularly in his shoulders. The patient had tried Pravachol in the past with Dr. Taylor but also experienced significant myalgias necessitating discontinuation. He was subsequently changed to gemfibrozil but again was unable to tolerate this. From a cardiac standpoint he denies any chest pain, angina, shortness of breath or dyspnea on exertion. He is walking 1-2 miles per day without difficulty. He is no longer drinking caffeine or alcohol. He does not smoke. 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 He is asymptomatic from a cardiac standpoint. Despite multiple antilipid medications, although given myalgias, and is no longer on gemfibrozil. We have not tried Zetia, and his blood pressure at home ranges between 120 and 140 systolic. In our office his blood pressure is 180/80, Pulse is 82 and regular. His physical exam is as below. He has no edema. His lipids as of 11/18/15 show an HDL of 52 and LDL 103. His lipids as of 05/25/17 show an HDL of 53 and an LDL of 121.EKG showed NSR with baseline RBBB, old IWMI Intake Vital Signs10/10/17 Height 6 ft 10/10/17 Weight: 215 lb 10/10/17 Body Mass Index (BMI) 29.1 10/10/17 Blood Pressure 180/80 10/10/17 Respiratory Rate 18 10/10/17 Pulse Rate 82 Intake Visit Reasons: 6 M FU Allergies pravastatin sodium [From Pravachol] Allergy (Verified 10/10/17 15:45) Unknown atorvastatin calcium [From Lipitor] Adverse Reaction (Verified 10/10/17 15:45) Pain in joints gemfibrozil Adverse Reaction (Verified 10/10/17 15:45) myalgia Medications aspirin 81 mg tablet,delayed release 81 mg PO QDAY 05/24/17 [History Confirmed 10/10/17] carvedilol 3.125 mg tablet 3.125 mg PO BID #180 tab 05/24/17 [Rx Confirmed 10/10/17] lisinopril 20 mg tablet 20 mg PO BID #180 tab 05/24/17 [Rx Confirmed 10/10/17] PFSH Medical History White coat syndrome with hypertension (Chronic) RBBB (Chronic) Premature ventricular contraction (Chronic) Nonrheumatic aortic valve insufficiency (Chronic) Atherosclerosis of coronary artery of [place] heart without angina pectoris (Chronic) Non-alcoholic fatty liver disease (Chronic) Hyperlipidemia (Chronic) Hypertension (Chronic) Surgical History H/O coronary artery bypass surgery (Chronic 08/12/15) History of esophagogastroduodenoscopy (EGD) (Chronic 2014) Family History Mother CAD (coronary artery disease) Social History Smoking Status: Never smoker alcohol intake: current details: rare substance use type: does not use ROS Const Const: Negative for fatigue, weakness, difficulty sleeping, frequent falls, headache(s) or excessive sweating Eyes Eyes: Negative for loss of peripheral vision, transient loss of vision, blurry vision or double vision ENT ENT: Negative for headache(s), dizziness, Nosebleed/epistaxis or balance problems Cardio Chest Pain: No Edema: None Muscle aches with walking: None Resp Respiratory: Negative for SOB with activity, SOB at rest, SOB orthopnea\SOB lying down or paroxysmal nocturnal dyspnea GI GI: Negative nausea or heartburn : Negative for hematuria Musc Musc: Negative for muscle aches/ myalgia, muscle weakness, joint pain or balance problems Skin Skin: Negative non-healing lesions, unusual bruising or rash Neuro Neuro: Negative for weakness, frequent falls, blurry vision, headache(s), dizziness, lightheadedness, orthostatic symptoms or double vision Taco Hematologic/Lymphatic: Negative for easy bruising Endo Endo: Negative for fatigue, excessive sweating or increased thirst/drinking Psych Psych: Negative for anxiety or depression Allergy Allergy/Immunology: Negative for hives, Negative for rash Cardiology Exam Const Appearance: cooperative, healthy appearing and no acute distress Nutritional Appearance: well nourished Orientation: alert, oriented x3 and oriented to person Head Head: normal to inspection, atraumatic and normocephalic Nose: external nose normal Face and Sinus: face symmetric Mouth: oral mucosae normal Eyes General: appearance normal, both eyes and all related structures Eyelids: eyelids normal Conjunctivae: conjunctivae normal Pupils: PERRL and normal by confrontation EOM: EOM intact bilaterally Neck Neck: normal visual inspection and full ROM Carotids: normal carotid upstroke Chest Chest inspection: normal inspection of the chest Auscultation: Bilateral: Clear to Auscultation Cardio Palpation: normal PMI Rate: regular rate Rhythm: regular rhythm Heart sounds: S1 normal and S2 normal GI GI: normal to inspection, no hepatosplenomegaly and bowel sounds present Neuro General: alert, oriented x3, awake, CN's II-XI intact bilaterally and moves all extremities Skin Skin: no rashes or lesions noted Extremities Pulses: Normal: Right Femoral Pulse, Left Femoral Pulse, Right Dorsalis Pedis Pulse, Left Dorsalis Pedis Pulse, Right Posterior Tibial Pulse, Left Posterior Tibial Pulse, Right Radial Pulse, Left Radial Pulse Lower Extremity Edema: None: Bilateral Psych Psychological: normal affect Assessment AND Plan 1. Atherosclerosis of coronary artery of [place] heart without angina pectoris I25.10 CABG x 3 VVCH-cysl-gi-side-Mid LAD and end-to-side to the apical segment, Free ABIMAEL-OM, SVG-PDA of the RCA 08/12/2015 Plan 1. Coronary artery disease: No exertional anginal symptoms at this time. No indication for any additional testing. His blood pressure is better than last time however he has known white coat hypertension. He will continue his baby aspirin, Coreg and lisinopril. Orders Orders: 2. Hyperlipidemia E78.5 Plan 2. Hyperlipidemia: Unfortunately the patient is unable to tolerate statins or gemfibrozil. I have offered him the option of Zetia, and the patient is somewhat reluctant to do this given his history of nonalcoholic fatty liver. I have advised the patient to drink a glass of red wine every evening, use steel cut oatmeal in an attempt to reduce his LDL, and we will revisit his LDL issue in 6 months time. I thoroughly explained to the patient the segundo of atherosclerotic deterioration of his vein grafts and it stressed the importance of aggressive LDL reduction. Patient sees somewhat reluctant to take anticholesterol medications, at least at this time. I have advised the patient to continue to exercise and attempt to further reduce his LDL but most likely will be unable to reduce it down to the levels we need to to prevent deterioration of his vein grafts. Orders Orders: 3. Hypertension I10 Plan 3. Hypertension: Patient has known white coat hypertension and takes his blood pressure at home regularly and usually ranges in the 120s-140s. He is taking and tolerating his medicines well. Continue Coreg and lisinopril. 4. Return office in 6 months. This note was generated using a voice recognition system and there may be incorrect words, spelling or punctuation that were not noted when reviewing the office note prior to saving. Plan Detail Follow Up +6M (Gregory) Coding Level of Care Code Off vis,est,level 3 Diagnoses Atherosclerosis of coronary artery of [place] heart without angina pectoris I25.10 Hyperlipidemia E78.5 Hypertension I10 Coding Level of Care Code Off vis,est,level 3 Diagnoses Atherosclerosis of coronary artery of [place] heart without angina pectoris I25.10 Hyperlipidemia E78.5 Hypertension I10 10/10/17 1638 <Electronically signed by Alfredo Jenkins MD> Date Alfredo Jenkins MD Cosigner Signature: Date (if applicable) CC: Cliff Taylor MD FINAL SURGICAL Observed: 06/29/2017 Status: F Source: [facility] PATHOLOGY REPORT 1:47 PM [facility] REPOSITORY . Pathology Reports Accession: Collected Date/Time: Received Date/Time: Pathologist: [id number] 06/29/2017 13:47 EST 06/30/2017 13:47 EST MD ALFREDO LEVIN Final Surgical Pathology Report DIAGNOSIS: SIGMOID COLON, BIOPSY -- TUBULAR ADENOMA. CLINICAL INFORMATION: SCREENING COLONOSCOPY SPECIMEN: A POLYP, COLORECT - SIGMOID POLYP BIOPSIES - R/O ADENOMA GROSS DESCRIPTION: _Received in formalin labeled sigmoid polyp biopsies are 3 solorzano glistening soft tissues averaging 0.3 cm. A S -1 Dictated by KAMAR OLIVA ([facility]) MICROSCOPIC DESCRIPTION: Slides reviewed. Electronically Signed by Pathology Report verified by [facility] Electronically signed by ALFREDO LEVIN MD Sign out Date: 07/03/2017 11:12 Performing Lab: [facility], [address] [place] [address] Performed By: #### SPFR #### [place] [address] ALLERGIES ALLERGIES DATE TYPE / CODE NAME / CODE REACTION SEVERITY SOURCE 12/18/2017 Drug carvedilol/[id number] Diarrhea [place] Allergy/416 67(RXNORM) [place] [id number]([facility] ED CT) Repository 11/29/2017 Drug pravastatin Unknown Unknown [place] Allergy/416 sodium/[id number](R [place] 876842([facility] 11/29/2017 Drug atorvastatin Pain in joints Unknown [place] Allergy/416 calcium/[id number]( [place] 876842([facility] Repository 11/29/2017 Drug gemfibrozil/F544052 myalgia Unknown Roman Allergy/416 050(RXNORM) [facility] 083541([facility] ED CT) Repository ENCOUNTERS ENCOUNTERS ADMIT/DISCHARGE ACCOUNT NUMBER ADMITTING ENCOUNTER LOCATION SOURCE CLASS 06/01/2018 [id number] Ambulatory [facility] ding:US Repository 05/28/2018 [id number] Ambulatory [facility] ding:POLAB3 Repository 04/20/2018 [id number] Ambulatory [facility] ding:LAB Repository 04/04/2018 [id number] Ambulatory BMSBuilding: Roman BMS.CF[facility] Repository 04/04/2018 [id number] Ambulatory [facility] ding:[facility] Repository 03/25/2018 [id number] Ambulatory [facility] ding:CR Repository 02/26/2018/03/14/20 [id number] Ambulatory Roman [place] 18 [facility] ding:CR Repository 02/02/2018/02/12/20 [id number] Ambulatory Roman Roman 18 [facility] ding:CR Repository 01/12/2018/01/13/20 [id number] Ambulatory Roman Roman 18 [facility] ding:CR Repository 12/20/2017 [id number] [facility] 12/19/2017 [id number] [facility] Repository 12/11/2017/12/13/19 [id number] Ambulatory [place] Roman 18 [facility] ding:CR Repository 12/06/2017 [id number] [facility]ository 11/29/2017/11/30/19 [id number] Ambulatory BMSBuilding: [place] 18 BMS.[facility] Repository 11/23/2017 [id number] [facility] Rep[facility] 11/08/2017/11/11/19 [id number] Adelfo, Inpatient [place] Roman 18 [facility] ding:ICURoom Repository : [id number]: 1 11/08/2017 [id number] Eduardoeletsandrzej, Ambulatory BMSBuilding: Roman Mick BMS.[facility] Repository 11/08/2017 [id number] Eduardoeletsky, Ambulatory BMSBuilding: Roman Mick BMS..[facility] Repository 11/08/2017 [id number] Tereletsky, Ambulatory BMSBuilding: [place] Mick BMS.[facility] Repository 11/08/2017 [id number] Tereletsky, Ambulatory BMSBuilding: [place] Mick BMS.[facility] Repository 11/08/2017 [id number] Tereletsky, Ambulatory BMSBuilding: [place] Mick BMS..[facility] Repository 11/08/2017 [id number] Eduardoeletsky, Ambulatory BMSBuilding: [place] Mick BMS.[facility] Repository 11/07/2017 [id number] Ambulatory [place] Roman [facility] ding:POLAB3 Repository 10/10/2017/10/11/19 [id number] Ambulatory BMSBuilding: Roman 18 BMS.[facility] Repository 10/04/2017 [id number] Ambulatory BMSBuilding: [place] BMS.[facility] Repository 09/12/2017 [id number] Ambulatory BMSBuilding: [place] BMS.[facility] Repository 07/17/2017 [id number] Ambulatory BMSBuilding: Roman BMS.[facility] Repository 06/29/2017/07/03/19 [id number] Ambulatory ALSBuilding: [place] 18 [facility] Repository PAYERS PAYERS ENCOUNTER GUARANTOR PAYER SUBSCRIBER SOURCE 06/01/2018 SEVERIANO O Primary SEVERIANO O Roman [id number] Insurance:MEDICARE GADDISDOB: [facility] [id number] Number: [place], [place] [address]Tbb: [id number] Date:2018-05-28 () 06/01/2018 Secondary SEVERIANO O Roman Insurance:AULTCAREPol [facility]DOB[facility] Number: [id number] [place] [address] [id number] Repository e Date:6878-55-87TQ[address] [address]ZF: 06/01/2018 Tertiary NOT GIVENUNK [place] Insurance:SELF PAY [facility] Number: Effective Repository Date:2018-05-28 05/28/2018 SEVERIANO O Primary SEVERIANO O Roman [id number] Insurance:MEDICARE GADDISDOB: [facility] [id number] [place] [address] Number: [place], [place] [address]Hmp: [id number] Date:2018-05-28 () 05/28/2018 Secondary NOT GIVENUNK Roman Insurance:SELF PAY [facility] Number: Effective Repository Date:2018-05-28 04/20/2018 SEVERIANO O Primary SEVERIANO O [place] [id number] Insurance:AULTCAREPol GADDISDOB: [facility] OSMANI icy Number: [id number] Care Hospital [id number] Repository , [place] [address]Nkp: Date:9326-64-19WS [address] [place] [address] () [address]UL: 04/20/2018 Secondary NOT GIVENUNK Roman Insurance:SELF PAY [facility] Number: Effective Repository Date:2018-04-20 04/04/2018 SEVERIANO O Primary SEVERIANO O [place] [id number] Insurance:AULTCAREPol GADDISDOB: [facility] OSMANI y Number: [id number] Care Hospital [id number] Repository , [place] [address]Bgg: Date:7298-10-04WH [address] [place] [address] () [address]JB: 04/04/2018 Secondary NOT GIVENUNK Roman Insurance:SELF PAY [facility] Number: Effective Repository Date:2018-04-04 04/04/2018 SEVERIANO O Primary SEVERIANO O Roman [id number] Insurance:AULTCAREPol GADDISDOB: [facility] OSMANI [facility] Number: [id number] Care Hospital [id number] Repository , [place] [address]Gre: Date:3132-00-08[address], [place] () [address]RB: 04/04/2018 Secondary NOT GIVENUNK Roman Insurance:SELF PAY [facility] Number: Effective Repository Date:2017-11-29 03/25/2018 SEVERIANO O Primary SEVERIANO O Roman [id number] Insurance:AULTCAREPol GADDISDOB: [facility] OSMANI [facility] Number: [id number] Care Hospital [id number] Repository , [place] [address]Hbr: Date:9867-71-88JB [address], [place] () [address]QB: 03/25/2018 Secondary NOT GIVENUNK Roman Insurance:SELF PAY [facility] Number: Effective Repository Date:2018-03-15 02/26/2018 SEVERIANO O Primary SEVERIANO O Roman [id number] Insurance:AULTCAREPol GADDISDOB: [facility] OSMANI ic Number: [id number] Memorial HospitalJAYENCOM[facility] [id number] Repository , [place] [address]Ykn: Date:9627-43-78PM [address] [place] [address] () [address]RY: 02/26/2018 Secondary NOT GIVENUNK Roman Insurance:SELF PAY [facility] Number: Effective Repository Date:2018-02-12 02/02/2018 SEVERIANO O Primary SEVERIANO O [place] [id number] Insurance:AULTCAREPol GADDISDOB: [facility] OSMANI [facility] Number: [id number] Care Hospital [id number] Repository , [place] [address]Ham: Date:1782-49-95FT [address] [place] [address] () [address]HL: 02/02/2018 Secondary NOT GIVENUNK [place] Insurance:SELF PAY [facility] Number: Effective Repository Date:2018-01-13 01/12/2018 SEVERIANO O Primary SEVERIANO O Roman [id number] Insurance:AULTCAREPol GADDISDOB: [facility] OSMANI [facility] Number: [id number] Care Hospital [id number] Repository , [place] [address]Tqp: Date:4741-03-27GE [address] [place] [address] () [address]LC: 01/12/2018 Secondary NOT GIVENUNK [place] Insurance:SELF PAY [facility] Number: Effective Repository Date:2017-12-13 12/20/2017 SEVERIANO O Primary SEVERIANO O Roman [id number] Insurance:AULTCAREPol GADDISDOB: [facility] OSMANI [facility] Number: [id number] Care Hospital [id number] Repository , [place] [address]Cjo: Date:0785-05-74OR [address] [place] [address] () [address]RH: 12/20/2017 Secondary NOT GIVENUNK [place] Insurance:SELF PAY [facility] Number: Effective Repository Date:2017-12-20 12/19/2017 SEVERIANO O Primary SEVERIANO O Roman [id number] Insurance:AULTCAREPol GADDISDOB: [facility] OSMANI icy Number: [id number] Care Hospital [id number] Repository , [place] [address]Gcz: Date:9026-75-96GV [address] [place] [address] () [address]RJ: 12/19/2017 Secondary NOT GIVENUNK [place] Insurance:SELF PAY [facility] Number: Effective Repository Date:2017-12-08 12/11/2017 SEVERIANO O Primary SEVERIANO O [place] [id number] Insurance:AULTCAREPol GADDISDOB: [facility] OSMANI icy Number: [id number] Care Hospital [id number] Repository , [place] [address]Paf: Date:9160-44-07VL [address] [place] [address] () [address]JK: 12/11/2017 Secondary NOT GIVENUNK [place] Insurance:SELF PAY [facility] Number: Effective Repository Date:2017-11-23 12/06/2017 SEVERIANO O Primary SEVERIANO O Roman [id number] Insurance:AULTCAREPol GADDISDOB: [facility] OSMANI icy Number: [id number] Care Hospital [id number] Repository , [place] [address]Ulr: Date:1235-09-02CY [address] [place] [address] () [address]XM: 12/06/2017 Secondary NOT GIVENUNK [place] Insurance:SELF PAY [facility] Number: Effective Repository Date:2017-12-06 11/29/2017 SEVERIANO O Primary SEVERIANO O Roman [id number] Insurance:AULTCAREPol GADDISDOB: [facility] icy Number: [id number] Care Hospital [id number] Repository , [place] [address]Lxs: Date:3955-11-71OE [address] [place] [address] () [address]IT: 11/29/2017 Secondary NOT GIVENUNK Roman Insurance:SELF PAY [facility] Number: Effective Repository Date:2017-11-29 11/23/2017 SEVERIANO O Primary SEVERIANO O [place] [id number] Insurance:AULTCAREPol GADDISDOB: [facility] OSMANI icy Number: [id number] Care Hospital [id number] Repository , [place] [address]Xva: Date:1422-32-21WK [address] [place] [address] () [address]DZ: 11/23/2017 Secondary NOT GIVENUNK Roman Insurance:SELF PAY [facility] Number: Effective Repository Date:2017-11-14 11/08/2017 SEVERIANO O Primary SEVERIANO O Roman [id number] Insurance:AULTCAREPol GADDISDOB: [facility] OSMANI icy Number: [id number] Care Hospital [id number] Repository , [place] [address]Yzj: Date:8732-87-93SE [address] [place] [address] () [address]WR: 11/08/2017 Secondary NOT GIVENUNK Roman Insurance:SELF PAY [facility] Number: Effective Repository Date:2017-11-07 11/08/2017 SEVERIANO O Primary SEVERIANO O Roman [id number] Insurance:AULTCAREPol GADDISDOB: [facility] OSMANI icy Number: [id number] Care Hospital [id number] Repository , [place] [address]Dhe: Date:4070-41-28LH [address], [place] () [address]HG: 11/08/2017 Secondary NOT GIVENUNK Roman Insurance:SELF PAY [facility] Number: Effective Repository Date:2017-11-08 11/08/2017 SEVERIANO O Primary SEVERIANO O [place] [id number] Insurance:AULTCAREPol GADDISDOB: [facility] OSMANI icy Number: [id number] Care Hospital [id number] Repository , [place] [address]Myk: Date:9786-52-72KT [address] [place] [address] () [address]UO: 11/08/2017 Secondary NOT GIVENUNK [place] Insurance:SELF PAY [facility] Number: Effective Repository Date:2017-11-08 11/08/2017 SEVERIANO O Primary SEVERIANO O Roman [id number] Insurance:AULTCAREPol GADDISDOB: [facility] OSMANI [facility] Number: [id number] Care Hospital [id number] Repository , [place] [address]Ujh: Date:0672-70-28MJ [address] [place] [address] () [address]TN: 11/08/2017 Secondary NOT GIVENUNK [place] Insurance:SELF PAY [facility] Number: Effective Repository Date:2017-11-08 11/08/2017 SEVERIANO O Primary SEVERIANO O Roman [id number] Insurance:AULTCAREPol GADDISDOB: [facility] OSMANI [facility] Number: [id number] Care Hospital [id number] Repository , [place] [address]Eog: Date:3815-26-82NF [address] [place] [address] () [address]JZ: 11/08/2017 Secondary NOT GIVENUNK [place] Insurance:SELF PAY [facility] Number: Effective Repository Date:2017-11-08 11/08/2017 SEVERIANO O Primary SEVERIANO O [place] [id number] Insurance:AULTCAREPol GADDISDOB: [facility]ANI [facility] Number: [id number] Care Hospital [id number] Repository , [place] [address]Hkz: Date:5148-25-65YO [address] [place] [address] () [address]OQ: 11/08/2017 Secondary NOT GIVENUNK [place] Insurance:SELF PAY [facility] Number: Effective Repository Date:2017-11-08 11/08/2017 SEVERIANO O Primary SEVERIANO O [place] [id number] Insurance:AULTCAREPol GADDISDOB: [facility] OSMANI icy Number: [id number] Care Hospital [id number] Repository , [place] [address]Unl: Date:3670-89-63IZ [address] [place] [address] () [address]QD: 11/08/2017 Secondary NOT GIVENUNK [place] Insurance:SELF PAY [facility] Number: Effective Repository Date:2017-11-08 11/07/2017 SEVERIANO O Primary SEVERIANO O Roman [id number] Insurance:AULTCAREPol GADDISDOB: [facility] OSMANI icy Number: [id number] Care Hospital [id number] Repository , [place] [address]Zft: Date:7992-84-57XZ [address] [place] [address] () [address]GH: 11/07/2017 Secondary NOT GIVENUNK [place] Insurance:SELF PAY [facility] Number: Effective Repository Date:2017-11-07 10/10/2017 SEVERIANO Primary SEVERIANO Owens [id number] Insurance:AULTCAREPol GADDISDOB: [facility] OSMANI icy Number: [id number] Care Hospital [id number] Repository , [place] [address]Wic: Date:9020-74-58BY [address] [place] [address] () [address]YC: 10/10/2017 Secondary NOT GIVENUNK [place] Insurance:SELF PAY [facility] Number: Effective Repository Date:2017-09-13 10/04/2017 SEVERIANO Primary SEVERIANO Roman [id number] Insurance:AULTCAREPol GADDISDOB: [facility] OSMANI icy Number: [id number] Care Hospital [id number] Repository , [place] [address]Zwd: Date:8418-16-70GE [address] [place] [address] () [address]BN: 10/04/2017 Secondary NOT GIVENUNK [place] Insurance:SELF PAY [facility] Number: Effective Repository Date:2017-10-04 09/12/2017 Severiano Primary Severiano Roman [id number] Insurance:AULTCAREPol GaddisDOB: [facility] Number: [id number] Medical Center [id number] Repository , [place] [address]Whf: Date:6217-14-46QV [address] [place] [address] () [address]GV: 09/12/2017 Secondary NOT GIVENUNK Roman Insurance:SELF PAY [facility] Number: Effective Repository Date:2017-09-12 07/17/2017 Severiano Primary Severiano Owens [id number] Insurance:AULTCAREPol GaddisDOB: [facility] Number: [id number] Medical Center [id number] Repository , [place] [address]Yxw: Date:1517-14-84PQ [address] [place] [address] () [address]ST: 07/17/2017 Secondary NOT GIVENUNK [place] Insurance:SELF PAY [facility] Number: Effective Repository Date:2017-07-17 06/29/2017 SEVERIANO O Primary [place] O [facility] GADDISDOB: Insurance:AULTCARE GADDISDOB: [facility] [id number] C81[employer]dbur Number: [id number] [place] [address] [id number] [place] [address] Date:2017-06-29 - [place], [place] 4686-26-16[place] , [place] [address]Upe: [id number]@ Name:[facility] Box ADRIEL.COMTel: [address] [place] [address] ()Tel: (000) [phone]: (WP) (HP) [phone] (WP)
== END ==
PROVIDERS: Family Provider Family Medicine Geriatric Medicine; PCP Family Medicine Geriatric Medicine; Referring Provider Family Medicine Geriatric Medicine; Visit Provider Family Medicine Geriatric Medicine
DX: I71.4 Abdominal aortic aneurysm, without rupture (principal)
CPT/HCPCS: 76775

== ENCOUNTER → 2018-06-15 10:42 | Outpatient (CLI) | payer MEDICARE, OTHER, SELFPAY ==
[2017-11-09 08:24] VITALS: BMI 29.7
[2018-06-11 16:17] VITALS: BMI 30.5
[2018-06-15 12:06] LABS: AST(SGOT) 22 U/L (15-37); Alanine Aminotransfer ALT/SGPT 30 U/L (16-61); Albumin, Serum 4.1 g/dL (3.2-5.0); Alkaline Phosphatase 71 U/L (45-117); Bilirubin, Direct 0.26 mg/dL (0.00-0.30); Cholesterol 153 mg/dL (200); Globulin 3.4 g/dL (2.2-4.2); High Density Lipoprotein 47 mg/dL; Protein, Total 7.5 g/dL (6.4-8.2); Triglycerides 96 mg/dL; Very Low Density Lipoprotein 19 mg/dL (5-40)
== END ==
PROVIDERS: Internal Medicine Cardiovascular Disease; Family Provider Family Medicine Geriatric Medicine; PCP Family Medicine Geriatric Medicine; Referring Provider Internal Medicine Cardiovascular Disease; Visit Provider Internal Medicine Cardiovascular Disease
DX: E78.5 Hyperlipidemia, unspecified (principal); I25.10 Atherosclerotic heart disease of native coronary artery without angina pectoris
CPT/HCPCS: 36415; 80061; 80076

== ENCOUNTER → 2018-06-20 14:19 | Outpatient (CLI) | payer MEDICARE, OTHER, SELFPAY ==
[2017-11-09 08:24] VITALS: BMI 29.7
[2018-06-11 16:17] VITALS: BMI 30.5
--- NOTE | 2018-06-20 14:26 | RAD_ITS ---
HISTORY: fall on elbow in May. swelling in elbow COMPARISON: None FINDINGS: XR left elbow 2 views No fracture or his location. Joint spaces are preserved. The distal humeral fat pads are not displaced. Small hypertrophic spur of the olecranon process and overlying mild soft tissue swelling of the olecranon region. No radiopaque foreign body. RAD/Elbow 2 Views IMPRESSION: 1. Olecranon process small spur and olecranon mild soft tissue swelling. As correlated with the history, posttraumatic olecranon bursitis may be present. 2. No fracture or acute osseous abnormality. at 0248 Reported and signed by: Mikey Stephens MD Electronically Signed: Mikey Stephens, at 2:47 EST Tel , Service support ,
--- NOTE | 2018-06-20 14:26 | CT_ITS ---
STUDY: CT BRAIN WITHOUT CONTRAST REASON FOR EXAM: Male, 63 years old. History recent fall. No neurological symptoms. RADIATION DOSAGE (If Supplied By Facility): CTDIvol = ( 60.81 ) mGy, DLP = ( 1067.08 ) mGycm TECHNIQUE: Transaxial CT imaging of the brain was performed without administration of intravenous contrast material. Individualized dose optimization techniques were used for this CT. COMPARISON: None. FINDINGS: Normal soft tissue structures. Normal calvarium. Normal size ventricles and extra-axial spaces for the patient's age. Normal white matter tracts of the cerebral hemispheres. Normal basal ganglia and thalami. Normal brainstem. Normal cerebellum. There is no intracranial hemorrhage. There are no findings of an acute ischemic infarction. Normal visualized paranasal sinuses. CT/Brain/Head without Contrast IMPRESSION: Normal unenhanced CT scan of the brain. Electronically Signed: Gerber Jovel MD at 15:33 EST , Service support ,
[2018-06-20 15:52] LABS: Pathologist Comment May follow
[2018-06-20 18:23] LABS: RBC /Synovial Fluid 0.686 10^6/uL (0); Synovial Fld Mononuclear WBC % 87.3 %; Synovial Fld Polynuclear WBC # 0.069 10^3/ul; Synovial Fld Polynuclear WBC % 12.7 %
[2018-06-20 19:54] LABS: AUTO B FLUID DILUENT BKGD CT WBC <0.1 RBC <0.01 (W<.1,R<.01)
[2018-06-20 19:55] LABS: Appearance /Synovial Fluid Cloudy (CLEAR); Color / Synovial Fluid Red (Pale Yellow); Source- Body Fluid SYNOVIAL
[2018-06-20 19:56] LABS: Body Fluid QC Type(s) BF2,BF3; Lymph 67 %; Monocyte /Synovial Fluid 20 %; Neutrophil 3 % (0-25); Other Cell /Synovial Fluid 10 %
[2018-06-21 12:31] LABS: Pathologist Review Reviewed
== END ==
PROVIDERS: Family Provider Family Medicine Geriatric Medicine; PCP Family Medicine Geriatric Medicine; Referring Provider Family Medicine Geriatric Medicine; Visit Provider Family Medicine Geriatric Medicine
DX: S09.90XA Unspecified injury of head, initial encounter (principal); D18.1 Lymphangioma, any site; M25.522 Pain in left elbow
CPT/HCPCS: 70450; 73070; 89050; 89051; 89060

== ENCOUNTER → 2018-07-09 13:18 | Outpatient (CLI) | payer MEDICARE, OTHER, SELFPAY ==
[2017-11-09 08:24] VITALS: BMI 29.7
[2018-06-11 16:17] VITALS: BMI 30.5
--- NOTE | 2018-07-09 13:19 | STE_ITS ---
Reason For Study: CAD Stress Results Protocol: Morgan Protocol Maximum Predicted HR: 155 bpm Target HR: 132 bpm % Maximum Predicted HR: 97 % DurationHeart Rate Stage (mm:ss) (bpm) BP Comment Baseline 86 140/90No Chest Pain Morgan Protocol Stage I 3:00 113 146/84No Chest Pain Morgan Protocol Stage II 3:00 130 158/76No Chest Pain Morgan Protocol Stage III 3:00 151 164/76No Chest Pain Recovery 88 144/70No Chest Pain Stress Duration: 9:00 mm:ss Maximum Stress HR: 151 bpm METS: 10 Baseline Echocardiogram Findings The estimated ejection fraction is 45 %. Stress Echo Wall motion Data Resting WM Intermediate WM Stress WM Resting Wall Motion Wall Motion Stress Mid-anteroseptal : Mildly Basal anteroseptal: Severely hypokinetic. Hypokinetic. Mid-Inferior: Mildly hypokinetic. Mid-Anterior : Severely Hypokinetic. Mid-Lateral : Mildly hypokinetic. EKG Data The baseline ECG displays normal sinus rhythm. The patient exercised according to the regular Morgan protocol for a total duration of 9:00. The maximum heart rate attained was 151 beats per minute. This was 97% of maximum predicted heart rate. The patient exercised into stage 4 of the Morgan protocol. During stress, there were no ST or T wave changes noted to suggest ischemia. No clinical angina was noted. Interpretation Summary The estimated ejection fraction is 45 %. Abnormal, adequate, treadmill echocardiogram. Positive for ischemia by echocardiographic criteria. No anginal symptoms noted. Rare PVCs noted. Appropriate blood pressure response to exercise. Average exercise capacity for age. Patient had baseline anteroseptal wall hypokinesis, which became worse at peak exercise with associated lateral hypokinesis as well. This was seen in at least 2 views. Final LVEF of 45%. Patient referred for outpatient catheterization. No complications. Ordering Physician: Alfredo Jenkins Referring Physician: Alfredo Jenkins Performed By: Vanna Grigsby, ROLLY, RVT
--- NOTE | 2018-07-09 14:58 | RAD_ITS ---
STUDY: X-RAY CHEST REASON FOR EXAM: Male, 63 years old. Abnormal stress test. TECHNIQUE: Frontal and lateral views of the chest COMPARISON: 11/08/2017 FINDINGS: The lungs are clear. There are no pleural effusions. There is no pneumothorax. The heart is normal in size. Again noted are sternotomy wires. The visualized osseous structures are within normal limits. RAD/Chest PA and Lateral IMPRESSION: No acute thoracic pathology. Electronically Signed: Lamonte Sheridan, at 16:20 EST Tel , Service support ,
[2018-07-09 16:30] LABS: Hematocrit 45.7 % (40-54); Mean Corp Hgb Conc 32.8 g/gl (32-36); Mean Corpuscular Hgb 29.6 pg (27.0-32.0); Mean Corpuscular Volume 90.3 fL (80-94); Mean Platelet Vol. 9.2 fl (6.2-12.0); Platelet Count 257 K/mm3 (150-450); RBC Distribution Width SD 46.3 fl (35.1-43.9); Red Blood Count 5.06 M/mm3 (4.6-6.2); White Blood Count 8.6 K/mm3 (4.4-11.0)
[2018-07-09 16:34] LABS: International Normalized Ratio 1.1; Partial Thromboplast Time 27.4 Seconds (24.1-36.2); Prothrombin Time (Protime)PT. 13.6 SECONDS (11.7-14.9)
[2018-07-09 16:41] LABS: Scan Indicated on CBC? Y/N NO
[2018-07-09 16:45] LABS: Anion Gap 11 (5-15); BUN 19 mg/dL (7-18); BUN/Creat Ratio 15.7 RATIO (10-20); Calcium,Total 8.9 mg/dL (8.5-10.1); Chloride 104 mmol/L (98-107); Creatinine, Serum 1.21 mg/dL (0.70-1.30); EST Glomerular Filtration Rate 64 mL/min (>60); Est Glom Filt Rate - Afr Amer 77 mL/min (>60); Glucose 92 mg/dL (74-106); Potassium 3.6 mmol/L (3.5-5.1); Sodium Level 142 mmol/L (136-145)
== END ==
PROVIDERS: Family Provider Family Medicine Geriatric Medicine; PCP Family Medicine Geriatric Medicine; Referring Provider Internal Medicine Cardiovascular Disease; Visit Provider Internal Medicine Cardiovascular Disease
DX: I25.810 Atherosclerosis of coronary artery bypass graft(s) without angina pectoris (principal); I25.10 Atherosclerotic heart disease of native coronary artery without angina pectoris; R94.39 Abnormal result of other cardiovascular function study
CPT/HCPCS: 36415; 71046; 80048; 85027; 85610; 85730; 93017; 93350

== ENCOUNTER 2018-07-27 06:53 | Day surgery (SDC) | payer MEDICARE, OTHER, SELFPAY ==
[2017-11-09 08:24] VITALS: BMI 29.7
[2018-06-11 16:17] VITALS: BMI 30.5
[2018-07-09 16:08] VITALS: BMI 28.5
[2018-07-26 08:25] VITALS: BMI 28.5
[2018-07-27] VITALS (19 sets, daily range): BP systolic 130–190; BP diastolic 59–90; PULSE 62–81; RESP 13–22; TEMP 36.6–37.1; O2SAT 93–98; BMI 30.7; BMI 27.7
--- NOTE | 2018-07-27 11:19 | EKG12_ITS ---
Test Reason : POST PCI Blood Pressure : / mmHG Vent. Rate : 070 BPM Atrial Rate : 070 BPM P-R Int : 206 ms QRS Dur : 106 ms QT Int : 440 ms P-R-T Axes : 055 027 068 degrees QTc Int : 475 ms Normal sinus rhythm Normal ECG Confirmed by EMILY GUY, DAYANA ([id number]), online content editor WANG AMAYA ([id number]) on 08/01/2018 1:17:52 PM Referred By: Alfredo Jenkins Confirmed By:DAYANA DIAZ MD
--- NOTE | 2018-07-27 11:28 | CL.D_ITS ---
Patient Name: SEVERIANO HERNANDEZ Study Date: 07/27/2018 Performing: Alfredo Jenkins MD Ht: 72 inches 183 cm : 1955 Wt: 209.7 lbs 95 kg Age: 63 Gender: male BSA: 2.17 PROCEDURE(S) PERFORMED [id number]/COR/LV/CABG CLINICAL PROFILE AND INDICATIONS Indications: Stable Known CAD, LV Dysfunction, Evaluation for Exercise Clearance Heart Failure: NYHA Class: 1, Newly Diagnosed: No, Heart Failure Type: Systolic Stress/Imaging Stress Echocardiogram: Yes Result: Positive Intermediate RiskStress Echocardiogram : Positive Intermediate Risk Angina Classification Anginal Classification w/in 2 Weeks: No symptoms Comorbidities/Risk Factors: Hypertension Dyslipidemia Prior KS Prior CHF Prior CABG Prior PCI CONCLUSIONS Triple vessel CAD of the LAD, RAMUS, LCX and RCA. Widely patent REYES to LAD (jump graft) Occluded SVG to PDA. Widely patent SVG to OM Non obstructive in stent restenosis to RCA stents. Significant lesion in mid Ramus. Segmented LV systolic dysfunction- Moderate RECOMMENDATIONS Referred for immediate PCI DESCRIPTION OF PROCEDURE The patient arrived to the procedure lab. The risks and benefits of the procedure as well as a full d escription of our services here and current unavailability of surgical backup were fully explained to the patient and/or their significant other prior to the catheterization. The Timeout was completed, verifying the correct patient and procedure. The patient's procedural site was prepped and draped in the usual fashion. Local anesthetic was given subcutaneously to right groin region with Lidocaine 2%. Using a modified Seldinger technique, arterial access was obtained via the right femoral artery, a 4 Fr sheath was inserted Left Coronary Artery selective angiography was performed in multiple views us ing a 4 Fr. JL5 catheter. Right Coronary Artery selective angiography was then performed in multiple views using a 4 Fr. 3DRC catheter. Left internal mammary artery graft to the LAD selective angiograph y was performed in multiple views using a 4 Fr. 3DRC catheter. Saphenous Vein graft to the OM 1 selective angiography was performed in multiple views using a 4 Fr. AR MOD 2 catheter. Left Vent riculography was performed in ANAYA projection using a 4 Fr. Pigtail catheter. LV to AO pullback pressu res were then recorded.The arterial sheath was pulled and a Mynx closure device was deployed for hemo stasis CORONARY ANGIOGRAPHY DOMINANCE: Right Dominant LEFT HEART ASSESSMENT Left Ventricular Ejection Fraction: by LV Gram 45-50% Inferior Basal Hypokinesis - Severe Depressed Left Ventricular systolic function LVEDP: 11 mmHg Normal Left Ventricular End Diastolic Pressure LEFT MAIN: No significant disease noted LEFT ANTERIOR DECENDING ARTERY: MID LAD: 85 % Stenosis CIRCUMFLEX ARTERY: is occluded RAMUS: 85 % Stenosis RIGHT CORONARY ARTERY: MID RCA: 30 % Stenosis GRAFTS: REYES graft to the Mid LAD is patent Saphenous Vein graft to the RPDA is totally occluded Saphenous Vein graft to the 1st OM is patent COMPLICATIONS No Complications PROCEDURE MEDICATIONS Oxygen: 2 L/min via nasal cannula Heparin 6000 unit(s) IV 07/27/2018 10:30:04 Nitro 200 mcg IC 07/27/2018 10:32:35 Nitro 200 mcg IC 07/27/2018 10:32:35 Nitro 200 mcg IC 07/27/2018 10:40:39 SUMMARY OF HEMODYNAMIC DATA Time AIR REST ECG 07:10:06 AO 151/80 (104) SA 10:14:10 LV 168/-14, 11 10:27:38 LV 164/-21, 11 10:27:44 LVp 174/-23, 11 10:27:49 AOp 167/70 (102) 10:27:55 Signed By Alfrdeo Jenkins MD On 07/27/2018 11:27:12 Alfredo Jenkins MD
[2018-07-27] MEDS: 0.9% Normal Saline 1,000 ML 150 ML IV (12:42)
[2018-07-27] MEDS: Nitroglycerin Oint 1 INCH PACKET TRANSDERM. (12:43)
--- NOTE | 2018-07-27 13:30 | CRPHASE1 ---
Patient Data/Charges Former Patient:: Phase II Mobile Application Developer:: Alfredo Jenkins Phase II:: Yes Phase II Referral:: [facility] Risk Factors/Lifestyle Hx Hypertension: Yes Hx Dyslipidemia: Yes Height: 1.85 m Weight:: 95.254 kg BMI: 27.7 Family History: Family History (Last Reviewed 07/09/18 @ 16:05 by Carleen Miranda) Mother CAD (coronary artery disease) Phase I Education Given On:: [place], Nutrition, Antiplatelet medication, CHF, Smoking cessation, Diabetes - Type I, Diabetes - Type II Issues Affecting Care:: None Knowledge of Condition:: Yes Hospital Course Presenting Symptoms:: none. abnormal stress echo Cardiac Cath Date:: 07/27/18 Medical/Surgical History Hypertension:: Yes Dyslipidemia:: Yes PTCA:: Yes Discharge/Home/Social Eval Discharge Disposition: Home Marital Status:
--- NOTE | 2018-07-27 13:33 | CRPHASE1_ITS ---
Patient Data/Charges Former Patient:: Phase II Marketing Strategist:: Alfredo Jenkins Phase II:: Yes Phase II Referral:: [facility] Risk Factors/Lifestyle Hx Hypertension: Yes Hx Dyslipidemia: Yes Height: 1.85 m Weight:: 95.254 kg BMI: 27.7 Family History: Family History (Last Reviewed 07/09/18 @ 16:05 by Carleen Miranda) Mother CAD (coronary artery disease) Phase I Education Given On:: [place], Nutrition, Antiplatelet medication, CHF, Smoking cessation, Diabetes - Type I, Diabetes - Type II Issues Affecting Care:: None Knowledge of Condition:: Yes Hospital Course Presenting Symptoms:: none. abnormal stress echo Cardiac Cath Date:: 07/27/18 Medical/Surgical History Hypertension:: Yes Dyslipidemia:: Yes PTCA:: Yes Discharge/Home/Social Eval Discharge Disposition: Home Marital Status:
--- NOTE | 2018-07-27 13:34 | CRPH1.INSTRU ---
General Education CAD and cardiac anatomy and function:: Patient communicates acknowledgment Explanation of diagnoses and procedures:: Patient communicates acknowledgment Sign/Symptoms of MD:: Patient communicates acknowledgment Antiplatelet therapy: Patient communicates acknowledgment Emergency procedures and activation of EMS: Patient communicates acknowledgment Compliance of all prescribed medications: Patient communicates acknowledgment Smoking Patient Nicotine/Smoking Risk Factors Are:: Non-smoker Nicotine/Smoking Response Code:: Patient communicates acknowledgment Dyslipidemia Dyslipidemia Response Code:: Patient communicates acknowledgment Overweight/Obesity Overweight/Obesity:: Patient communicates acknowledgment Hypertension Recommendations Include:: Maintain BP <130/85, BP <130/80 if diabetic, DASH dietary guidelines, Decrease/maintain normal body weight, Moderation of ETOH Hypertension:: Patient communicates acknowledgment Heart Disease Heart Disease Response Code:: Patient communicates acknowledgment Diabetes Diabetes:: Patient communicates acknowledgment Metabolic Syndrome Metabolic Syndrome Response Code:: Patient communicates acknowledgment Sedentary Sedentary Response Code:: Patient communicates acknowledgment Stress Stress Response Code:: Patient communicates acknowledgment
--- NOTE | 2018-07-27 14:16 | CL.I_ITS ---
Patient Name: SEVERIANO HERNANDEZ Study Date: 07/27/2018 Performing: Alfredo Jenkins MD Ht: 72.05 inches 183 cm : 1955 Wt: 209.44 lbs 95 kg Age: 63 Gender: male BSA: 2.17 PROCEDURE(S) PERFORMED BR51-DTF/COR/LV/CABG CLINICAL PROFILE AND CO-MORBIDITIES Indications: Stable Known CAD, LV Dysfunction, Evaluation for Exercise Clearance Heart Failure: NYHA Class: 1, Newly Diagnosed: No, Heart Failure Type: Systolic Stress/Imaging Stress Echocardiogram: Yes Result: Positive Intermediate Risk Stress Echocardiogra m: Positive Intermediate Risk Angina Classification Anginal Classification w/in 2 Weeks: No symptoms Comorbidities/Risk Factors: Hypertension Dyslipidemia Prior [place] Prior CHF Prior CABG Prior PCI CONCLUSIONS Triple vessel CAD of the LAD, RAMUS, LCX and RCA. Widely patent REYES to LAD (jump graft) Occluded SVG to PDA. Widely patent SVG to OM Non obstructive in stent restenosis to RCA stents. Significant lesion in mid Ramus. Segmented LV systolic dysfunction- Moderate Successful PTCA/ERROL to mid RAMUS with a 2.25 x 12 Promus Synergy, followed immediately upstream with a 2.25 x 24 Promus Synergy, post dilated with a 2.5 x 8 NC balloon at various inflation pressures to conform to vessell mckee; 85%-->0%, no dissection or perforation. RECOMMENDATIONS Referred for immediate PCI Highly recommend quitting all tobacco products Follow up with primary community center coordinator Risk factor modification ASA Indefinitley Plavix for at least 12 months Routine post interventional care Refer for Outpatient Cardiac Rehab Manual sheath removal per protocol Follow up with Dr. Jenkins Successful Mynx closure Medical management of mid RCA ISR. DESCRIPTION OF PROCEDURE The patient arrived to the procedure lab. The risks and benefits of the procedure as well as a full d escription of our services here and lack of surgical backup were fully explained to the patient and/o r their significant other prior to the catheterization. The Timeout was completed, verifying the jona ect patient and procedure. The patient's procedural site was prepped and draped in the usual fashion. Local anesthetic was given subcutaneously to right groin region with Lidocaine 2%. Using a modified Seldinger technique, arterial access was obtained via the right femoral artery, a 4Fr sheath was inse rted. Left Coronary Artery selective angiography was performed in multiple views using a 4 Fr. JL5 c atheter. Right Coronary Artery selective angiography was then performed in multiple views using a 4 F r. 3DRC catheter. Left internal mammary artery graft to the LAD selective angiography was performed i n multiple views using a 4 Fr. 3DRC catheter. Saphenous Vein graft to the OM 1 selective angiography was performed in multiple views using a 4 Fr. AR MOD 2 catheter. Left Ventriculography wa s performed in ANAYA projection using a 4 Fr. Pigtail catheter. LV to AO pullback pressures were then r ecordedThe images were reviewed and options discussed. A decision was then made to proceed with an In tervention, IVUS or other adjunct procedure. Arterial sheath was exchanged for a 6 Fr Sheath. EBU 3.75 Guide catheter was inserted and engaged into the LCA. Angiogram performed pre balloon dilatation. BMW Guide wire was advanced to the Ramus. 1.5 x 8 Emerge Balloon catheter was advanced across lesion in the ramus branch, mid. PTCA balloon inf lated at 8 atms for 13 secs. PTCA balloon inflated at 8 atms for 8 secs. PTCA balloon inflated at 10 atms for 12 secs. PTCA balloon inflated at 10 atms for 7 secs. 2.0 x 12 Emerge Balloon catheter was a dvanced across lesion in the ramus branch, mid. PTCA balloon inflated at 6 atms for 10 secs. PTCA bal loon inflated at 6 atms for 5 secs. PTCA balloon inflated at 8 atms for 9 secs. 2.25 x 12 Synergy Dillon g Eluting stent was advanced across the lesion in the ramus branch, mid. 2.25 x 24 Synergy Drug Eluti ng stent was advanced across the lesion in the ramus branch, mid. 2.5 x 8 NC Emerge Balloon catheter was inserted post stent. PTCA balloon inflated at 12 atms for 6 secs. PTCA balloon inflated at 12 atms for 3 secs. PTCA balloon inflated at 14 atms for 5 secs. PTCA balloon inflated at 6 atms for 6 secs. Angiogram performed post stent deployment. The arterial sheath was pulled and a Mynx closure device was deployed for hemostasis CORONARY ANGIOGRAPHY DOMINANCE: Right Dominant LEFT HEART ASSESSMENT Left Ventricular Ejection Fraction: by LV Gram 45-50% Depressed Left Ventricular systolic function LVEDP: 11 mmHg Normal Left Ventricular End Diastolic Pressure Inferior Basal Hypokinesis - Severe LEFT MAIN: No significant disease noted LEFT ANTERIOR DECENDING ARTERY: MID LAD: 85 % Stenosis CIRCUMFLEX ARTERY: is occluded RAMUS: 85 % Stenosis RIGHT CORONARY ARTERY: MID RCA: 30 % Stenosis GRAFTS: REYES graft to the Mid LAD is patent Saphenous Vein graft to the RPDA is totally occluded Saphenous Vein graft to the 1st OM is patent INTERVENTION INFORMATION LESION SITE: Ramus (Mid) Lesion Complexity: High/C, lesion at bifurcation: No, thrombus present: No, lesion length: 36 mm, cul prit lesion: Yes Pre Stenosis: 85 % Pre intervention STEFFANY flow: 3 PROCEDURE: Drug Eluting Stent with pre and post dilatation Post Stenosis: 0 % Post intervention STEFFANY flow: 3 Lesion Devices: Opp.io 6 Fr EBU3.75 100cm Guide Catheter Zhao .014 BMW [place] Straight 190cm Lorenzo Sci EMERGE MR 1.50x08 BALLOON Lorenzo Sci EMERGE MR 2.00x12 BALLOON Lorenzo Sci Synergy MR ERROL 2.25x12 Lorenzo Sci Synergy MR ERROL 2.25x24 Lorenzo Sci NC EMERGE MR 2.50x08 BALLOON COMPLICATIONS No Complications PROCEDURE MEDICATIONS Oxygen: 2 L/min via nasal cannula Heparin 6000 unit(s) IV 07/27/2018 10:30:04 Nitro 200 mcg IC 07/27/2018 10:32:35 Nitro 200 mcg IC 07/27/2018 10:32:35 Nitro 200 mcg IC 07/27/2018 10:40:39 IV Bolus: .9 NaCl 500 ml total 07/27/2018 14:01:12 SUMMARY OF HEMODYNAMIC DATA Time AIR REST ECG 07:10:06 AO 151/80 (104) SA 10:14:10 LV 168/-14, 11 10:27:38 LV 164/-21, 11 10:27:44 LVp 174/-23, 11 10:27:49 AOp 167/70 (102) 10:27:55 Signed By Alfredo Jenkins MD On 07/27/2018 14:15:15 Alfredo Jenkins MD
[2018-07-27 14:30] LABS: ACT Activated Clotting Time 191 sec (74-137)
--- NOTE | 2018-07-27 16:07 | PCM.DC.CCA ---
Discharge Diet: Low fat/ Low Cholesterol Discharge Activity: Return to Normal Activity May shower in (days): 1 - No tub baths for 5 days May resume sexual activity in: 1-2 weeks Lifting Restrictions: Do not lift anything greater than 10 pounds for 3 days Call your doctor if your incision/area has: Continuous Slow Oozing, Sudden Increased Bleeding, Increased Pain/ Swelling, Increased Redness, Foul Smelling Discharge, Swelling at the incision site Call your doctor if you observe: Fever of 101 or Higher, Shortness of breath, Chest pain Remove Dressing in (days):: 1 Cleanse incision/area with: Soap & Water Additional Instructions: You will continue with Aspirin therapy. You will remain on Plavix for at least one year. If anyone asks you to stop Plavix, please call the [facility] first at [phone]. You are scheduled for an office appointment with Norris Britton, Nurse Practitioner, of the [facility] on 08/15/2018 at 11:00 AM Allergies/Adverse Reactions: Allergies pravastatin sodium [From Pravachol] Allergy (Verified 11/29/17 09:42) Unknown carvedilol [From Coreg] Adverse Reaction (Intermediate, Verified 12/18/17 16:35) diarrhea atorvastatin calcium [From Lipitor] Adverse Reaction (Verified 11/29/17 09:42) Pain in joints gemfibrozil Adverse Reaction (Verified 11/29/17 09:42) myalgia Medications to take at Discharge aspirin 81 mg tablet,delayed release 81 mg PO DAILY 05/24/17 clopidogrel 75 mg tablet 75 mg PO DAILY #90 tab 06/07/18 losartan 50 mg tablet 50 mg PO BID #180 tab 06/07/18 metoprolol succinate ER 25 mg tablet,extended release 24 hr 25 mg PO DAILY 07/26/18 Primary Care Physician: Cliff Pardo Chi, MD [Primary Care Provider] - Test Results: Test results from this visit will be discussed in further detail at your follow-up appointment, if applicable. Please Follow Up With: Norris Britton When: 08/15/2018 Proposed Discharge Date: 07/28/18 Cardiac Rehabilitation Info Cardiac Rehabilitation Program Information: Cardiac Rehabilitation is important for patients like you who are recovering from a heart problem. Cardiac rehabilitation programs are recognized as integral to the continued care of the patient with coronary heart disease. The cardiac rehabilitation program is designed to optimize a patient's physical, psychological, and social functioning. Health senior caregiver work in cardiac rehabilitation programs and assist you with getting the treatments you need to get stronger and healthier - like exercise, healthy eating habits, and medications. Cardiac rehabilitation has been show to help people with heart problems live longer and have better life enjoyment than people who do not go to cardiac rehabilitation. Please contact the Cardiac Rehabilitation Program at [facility] at in two weeks if you have not heard from them.
--- NOTE | 2018-07-27 16:11 | DCINST_ITS ---
Discharge Diet: Low fat/ Low Cholesterol Discharge Activity: Return to Normal Activity May shower in (days): 1 - No tub baths for 5 days May resume sexual activity in: 1-2 weeks Lifting Restrictions: Do not lift anything greater than 10 pounds for 3 days Call your doctor if your incision/area has: Continuous Slow Oozing, Sudden Increased Bleeding, Increased Pain/ Swelling, Increased Redness, Foul Smelling Discharge, Swelling at the incision site Call your doctor if you observe: Fever of 101 or Higher, Shortness of breath, Chest pain Remove Dressing in (days):: 1 Cleanse incision/area with: Soap & Water Additional Instructions: You will continue with Aspirin therapy. You will remain on Plavix for at least one year. If anyone asks you to stop Plavix, please call the [facility] first at [phone]. You are scheduled for an office appointment with Norris Britton, Nurse Practitioner, of the [facility] on 08/15/2018 at 11:00 AM Allergies/Adverse Reactions: Allergies pravastatin sodium [From Pravachol] Allergy (Verified 11/29/17 09:42) Unknown carvedilol [From Coreg] Adverse Reaction (Intermediate, Verified 12/18/17 16:35) diarrhea atorvastatin calcium [From Lipitor] Adverse Reaction (Verified 11/29/17 09:42) Pain in joints gemfibrozil Adverse Reaction (Verified 11/29/17 09:42) myalgia Medications to take at Discharge aspirin 81 mg tablet,delayed release 81 mg PO DAILY 05/24/17 clopidogrel 75 mg tablet 75 mg PO DAILY #90 tab 06/07/18 losartan 50 mg tablet 50 mg PO BID #180 tab 06/07/18 metoprolol succinate ER 25 mg tablet,extended release 24 hr 25 mg PO DAILY 07/26/18 Primary Care Physician: Cliff Pardo Chi, MD [Primary Care Provider] - Test Results: Test results from this visit will be discussed in further detail at your follow- up appointment, if applicable. Please Follow Up With: Norris Britton When: 08/15/2018 Proposed Discharge Date: 07/28/18 Cardiac Rehabilitation Info Cardiac Rehabilitation Program Information: Cardiac Rehabilitation is important for patients like you who are recovering from a heart problem. Cardiac rehabilitation programs are recognized as integral to the continued care of the patient with coronary heart disease. The cardiac rehabilitation program is designed to optimize a patient's physical, psychological, and social functioning. Health career technical education instructor work in cardiac rehabilitation programs and assist you with getting the treatments you need to get stronger and healthier - like exercise, healthy eating habits, and medications. Cardiac rehabilitation has been show to help people with heart problems live longer and have better life enjoyment than people who do not go to cardiac rehabilitation. Please contact the Cardiac Rehabilitation Program at [facility] at in two weeks if you have not heard from them.
--- NOTE | 2018-07-27 16:12 | PCM.PN.BLA ---
Progress Note Patient is not on a statin medication d/t allergies. He also has an allergy to non-statin medication, Gemfibrozil.
[2018-07-27] MEDS: Losartan Potassium 50 MG Tablet PO (22:05)
[2018-07-27] MEDS: Metoprolol(XL)Succ 25 MG Tablet PO (22:06)
[2018-07-28] VITALS (10 sets, daily range): BP systolic 117–158; BP diastolic 44–75; PULSE 54–72; RESP 16–25; TEMP 36.4–36.9; O2SAT 93–95
[2018-07-28 05:49] LABS: Hematocrit 42.2 % (40-54); Hemoglobin 13.8 g/dl (13.0-16.5); Mean Corp Hgb Conc 32.7 g/gl (32-36); Mean Corpuscular Hgb 29.6 pg (27.0-32.0); Mean Corpuscular Volume 90.6 fL (80-94); Mean Platelet Vol. 8.6 fl (6.2-12.0); Platelet Count 258 K/mm3 (150-450); RBC Distribution Width SD 46.1 fl (35.1-43.9); Red Blood Count 4.66 M/mm3 (4.6-6.2); Scan Indicated on CBC? Y/N NO; White Blood Count 7.8 K/mm3 (4.4-11.0)
[2018-07-28 06:05] LABS: Anion Gap 6 (5-15); BUN 19 mg/dL (7-18); BUN/Creat Ratio 17.8 RATIO (10-20); Calcium,Total 8.5 mg/dL (8.5-10.1); Chloride 110 mmol/L (98-107); Cholesterol 132 mg/dL (200); Creatinine, Serum 1.07 mg/dL (0.70-1.30); EST Glomerular Filtration Rate 74 mL/min (>60); Est Glom Filt Rate - Afr Amer 89 mL/min (>60); Estimated Creatinine Clearance 77.78 ml/min; Glucose 119 mg/dL (74-106); High Density Lipoprotein 45 mg/dL; Potassium 4.3 mmol/L (3.5-5.1); Sodium Level 141 mmol/L (136-145); Triglycerides 88 mg/dL; Very Low Density Lipoprotein 18 mg/dL (5-40)
[2018-07-28] MEDS: Clopidogrel Bisulfate 75 MG Tablet PO (07:57)
[2018-07-28] MEDS: Losartan Potassium 50 MG Tablet PO (07:57)
[2018-07-28] MEDS: Aspirin E.C. 81 MG Tablet PO (07:57)
[2018-07-28] MEDS: 0.9% NaCl Peripheral Flush Adult/Peds IV (07:58)
--- NOTE | 2018-07-28 09:44 | PCM.PN.CARD ---
Subjectve: Patient doing very well this morning, denies any chest pain, telemetry normal sinus rhythm with rare PVC. Right groin is clean/dry/intact. EKG shows normal sinus rhythm, no acute changes. Hemoglobin and creatinine are within nominal limits. Objective: Vital Signs Temp Pulse Resp BP Pulse Ox 97.5 F L 68 19 H 158/70 H 94 07/28/18 08:00 07/28/18 09:00 07/28/18 09:00 07/28/18 09:00 07/28/18 09:00 Oxygen Delivery Method Room Air Weight: 210 lb Body Mass Index (BMI) 30.7 Intake and Output for Last 24 Hours 07/26/18 07/27/18 07/28/18 23:59 23:59 23:59 Intake Total 2480 / 2480 200 / 200 Output Total 400 / 400 350 / 350 Balance 2079 / 2079 -150 / -150 General: Awake, Alert, Oriented x 3 HEENT: PERRL, EOMI, Sclera Non Icteric Neck: Supple, Good ROM, No Lymph Node Enlargement Lungs: Clear to auscultation Cardiovascular: Regular Rhythm, Normal S1, Normal S2, No Murmurs, No Rubs, No Gallops Vascular: No Carotid Bruits, Normal Femoral Pulses, Normal Radial Pulses, Normal Dorsalis Pedal Pulse, Normal Posterior Tibial Pulses Abdomen: Bowel Sounds Present, Soft, Non Tender, No HSM, No Organomegaly Extremities: No Cyanosis, No Clubbing, No edema Neurological: No Focal Motor or Sensory Deficit 07/28/18 05:40: WBC 7.8, RBC 4.66, Hgb 13.8, Hct 42.2, MCV 90.6, MCH 29.6, MCHC 32.7, RDW 14.0, RDW Differential 46.1 H, Plt Count 258, MPV 8.6 07/28/18 05:40: Sodium 141, Potassium 4.3, Chloride 110 H, Carbon Dioxide 25.0, Anion Gap 6, BUN 19 H, Creatinine 1.07, Est GFR (MDRD) Af Amer 89, Est GFR (MDRD) Non-Af 74, BUN/Creatinine Ratio 17.8, Glucose 119 H, Calcium 8.5, Triglycerides 88, Cholesterol 132, LDL Cholesterol 69, VLDL Cholesterol 18, HDL Cholesterol 45 Rhythm: EKG: ECHO: Stress Test: Cardiac Cath: PCI: CT Surgery: Holter monitor: EPS: PPM: CXR: Chest CT Scan: Medical Necessity - Tobacco Use Smoking Status: Never smoker Assessment/Plan 1. Coronary artery disease: No exertional anginal symptoms. No chest pain overnight. Right groin is clean/dry/intact. EKG shows normal sinus rhythm with rare PVC. Recommend patient continue lifelong baby aspirin and Plavix. No additional stenting needed at this time. The patient has minor in-stent restenosis of his previously placed right coronary artery stents of about 30% only. No evidence of inferior ischemia on recent stress testing. 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 At this point I believe the patient may be discharged home. 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 Patient wishes to pursue aggressive exercise in order to strengthen his heart although this may not be possible given his previous damage. Nonetheless he will be enrolled in cardiac rehab. 2. Hyperlipidemia: Continue antilipid therapy. Repeat lipid profile after cardiac rehab. 3. Hypertension: I increased the patient's losartan to 50 mg p.o. twice daily given his hypertension after his procedure yesterday. He will follow-up in our office in 2 weeks time. 4. Patient may be discharged home. Follow-up with Dr. Jenkins. Code Visit Inpatient E&M: 76313 Subs Hosp L2
--- NOTE | 2018-07-28 10:00 | EKG12_ITS ---
Test Reason : AM EKG Blood Pressure : / mmHG Vent. Rate : 062 BPM Atrial Rate : 062 BPM P-R Int : 194 ms QRS Dur : 112 ms QT Int : 462 ms P-R-T Axes : 062 044 074 degrees QTc Int : 468 ms Normal sinus rhythm Normal ECG When compared with ECG of 27-JUL-2018 11:33, MANUAL COMPARISON REQUIRED, DATA IS UNCONFIRMED Confirmed by EMILY GUY, DAYANA ([id number]), desk editor WANG AMAYA ([id number]) on 08/01/2018 1:16:09 PM Referred By: Alfredo Jenkins Confirmed By:DAYANA DIAZ MD
== END 2018-07-28 09:44 | disposition home or self-care (01) ==
LOC: CLSP 06:54 → ICU 11:11
PROVIDERS: Family Provider Family Medicine Geriatric Medicine; PCP Family Medicine Geriatric Medicine; Referring Provider Internal Medicine Cardiovascular Disease; Visit Provider Internal Medicine Cardiovascular Disease
DX: I25.10 Atherosclerotic heart disease of native coronary artery without angina pectoris (principal); E78.5 Hyperlipidemia, unspecified; I10 Essential (primary) hypertension; R94.39 Abnormal result of other cardiovascular function study; I25.2 Old myocardial infarction; I45.10 Unspecified right bundle-branch block; I49.3 Ventricular premature depolarization; K76.0 Fatty (change of) liver, not elsewhere classified; Z95.1 Presence of aortocoronary bypass graft; Z79.82 Long term (current) use of aspirin; Z79.899 Other long term (current) drug therapy
CPT/HCPCS: 80048; 80061; 85027; 85347; 92928; 93005; 93459; C1760; J7030; J7040; A4216; C1725; C1769; C1874; C1887; C1894; C9600; Q9967

== ENCOUNTER → 2018-08-02 09:02 | Outpatient (CLI) | payer MEDICARE, OTHER, SELFPAY ==
[2018-07-27 11:45] VITALS: BMI 30.7
[2018-07-27 13:33] VITALS: BMI 27.7
--- NOTE | 2018-08-02 09:38 | PCM.CR.HP2 ---
<Brien Sweeney - Last Filed: 08/02/18 09:38> CR - History & Physical - General Arrival date:: 08/02/18 Arrival time:: 09:00 Date of Referral:: 07/27/18 Date of CR Evaluation:: 08/02/18 Referring Physician: Dr. Alfredo Jenkins Primary Diagnosis: PTCA w/PCI intervention coroanry stent - History of Present Cardiac Event Onset Date: Enter Onset Date of cardiac illnesses in Comment field below PTCA or coronary stenting:: Yes - restent Interventions with present event:: heart cath Were there any complications?: none - Medications Home Medications: Ambulatory Orders Medication Instructions Recorded aspirin 81 mg tablet,delayed 81 mg PO DAILY 05/24/17 release clopidogrel 75 mg tablet 75 mg PO DAILY #90 tab 06/07/18 losartan 50 mg tablet 50 mg PO BID #180 tab 06/07/18 metoprolol succinate ER 25 mg 25 mg PO DAILY 07/26/18 tablet,extended release 24 hr - Allergies Allergies/Adverse Reactions: Allergies pravastatin sodium [From Pravachol] Allergy (Verified 11/29/17 09:42) Unknown carvedilol [From Coreg] Adverse Reaction (Intermediate, Verified 12/18/17 16:35) diarrhea atorvastatin calcium [From Lipitor] Adverse Reaction (Verified 11/29/17 09:42) Pain in joints gemfibrozil Adverse Reaction (Verified 11/29/17 09:42) myalgia Past Medical History - Past Medical Illness Medical History: Past Medical History (Last Reviewed 07/09/18 @ 16:05 by Carleen Miranda) Abnormal stress echo (Acute) R94.39 Atherosclerosis of coronary artery bypass graft without angina pectoris (Acute) 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 Non-ST elevation (NSTEMI) myocardial infarction (Acute) I21.4 White coat syndrome with hypertension (Chronic) I10 RBBB (Chronic) I45.10 Premature ventricular contraction (Chronic) I49.3 Nonrheumatic aortic valve insufficiency (Chronic) I35.1 Atherosclerosis of coronary artery of [place] heart without angina pectoris (Chronic) I25.10 PCI-ERROL-RCA w/ 3.0 x 20 and 3.0 x 38 mm Promus 11/08/17 CABG x 3 AYQH-iyzv-yh-side-Mid LAD and end-to-side to the apical segment, Free ABIMAEL-OM, SVG-PDA of the RCA 08/12/2015 Non-alcoholic fatty liver disease (Chronic) K76.0 Hyperlipidemia (Chronic) E78.5 Hypertension (Chronic) I10 - Past Surgical History Surgical History: Past Surgical History (Last Updated 07/27/18 @ 14:45 by Carleen Miranda) H/O coronary artery bypass surgery (Chronic) Onset Date: ~08/12/15 Z95.1 CABG x 3 EUTW-uzad-xq-side-Mid LAD and end-to-side to the apical segment, Free ABIMAEL-OM, SVG-PDA of the RCA 08/12/2015 History of esophagogastroduodenoscopy (EGD) Onset Date: ~2014 Z98.890 Surgical History: coronary bypass surgery, tonsillectomy - Family History Summary Family History: Family History (Last Reviewed 07/09/18 @ 16:05 by Carleen Miranda) Mother CAD (coronary artery disease) Social History - Smoking History Smoking Status: Former smoker Hx Tobacco Use: No Hx Smoking Exposure: No - Alcohol Use Alcohol Usage: Yes - socially - Substance Abuse Hx Substance Use: No - Hobbies, Recreation, Social Activities Recreational Activities: I am able to engage in most, but not all activities Social Environment - Status Marital Status: - Current Living Arrangements Living Environment:: Spouse Risk Factor Assessment - Chief Complaint Chief Complaint: Patient is a former CR Phase II patient who presents back to cardiac rehab today following a recent PCI w/coronary stent intervention on 07/27/2018. - Vital Signs Temperature: 98.7 F Respiratory Rate: 14 Blood Pressure: 130/60 - White Coat Syndrome Nailbeds:: normal in color - Pulse Pulse Rate: 72 Pulse Rhythm: Regular - Hypertension Blood Pressure Sitting - Left Arm: 130/60 - Blood Cholesterol/Lipids Total Cholesterol (mg/dL) Goal = less than 200 mg/dL: 132 HDL Cholesterol (mg/dL) Goal = less than 40 mg/dL: 45 LDL Cholesterol (mg/dL) Goal = less than 70 mg/dL: 69 Triglycerides (mg/dL) Goal = less than 150 mg/dL: 88 - Diabetes Nutrition Referral for Diabetes: No - Obesity Height: 6 ft Weight:: 210 lb Weight in Pounds: 210.0 lbs Weight Source: Estimated by Patient Body Mass Index (BMI): 28.5 Nutritional Referral for Obesity: No - Physical Inactivity Physical Inactivity: Reg Exercise 30 min/day - Risk Stratification Risk Guidelines: Lowest Risk: Risk Factor for Smoking, Risk Factor for Dyslipidemia, Risk Factor for Diabetes, Risk Factor for Sedentary Lifestyle, Risk Factor for Depression, Moderate Risk: Risk Factor for Obesity, Risk Factor for Hypertension - For Smoking Smoking Risk Guidelines: Smoking Low Risk: None or quit greater than 6 months ago. Smoking Moderate Risk: Smoker or quit 6 months or less ago. Smoking High Risk: Smoker - For Dyslipidemia Dyslipidemia Risk Guidelines: Low Risk: Moderate Risk: High Risk: 15-25% fat 25.1-29% fat >/= 30% fat. <7% sat fat 7-9% sat fat >9% sat fat. <150 mg chol 150-299 mg chol >/= 300 mg chol. LDL <100 LDL 100-129 LDL >/= 130. Chol/HDL ratio <5.0 Chol/HDL ratio 5.0-6.0 Chol/HDL ratio >6.0. Triglycerides <100 Triglycerides 100-149 Triglycerides >/= 150 - For Diabetes Mellitus Diabetes Risk Guidelines: Diabetes Low Risk: HgA1c <6.5% and/or FBG <120. Diabetes Moderate Risk: HgA1c 6.6-7.9% and/or FBG 120-180. Diabetes High Risk: HgA1c >/= 8% and/or FBG >180 - For Obesity/Overweight Obesity/Overweight Risk Guidelines: Obesity Low Risk: BMI <25.0. Obesity Moderate Risk: BMI 25-29.9. Obesity High Risk: BMI >/= 30.0 - For Hypertension Hypertension Risk Guidelines: Hypertension Low Risk: Systolic <120 and Diastolic <80. Hypertension Moderate Risk: Systolic 120-139 and Diastolic 80-89. Hypertension High Risk: Systolic >/= 140 and Diastolic >/= 90 - For Sedentary Lifestyle Sedentary Lifestyle Risk Guidelines: Sedentary Lifestyle Low Risk: >/= 1,500 kcal/week. Sedentary Lifestyle Moderate Risk: 700-1,499 kcal/week. Sedentary Lifestyle High Risk: < 700 kcal/week - For Depression Depression Risk Guidelines: Depression Low Risk: Not clinically depressed. Depression Moderate Risk: Mildly depressed. Depression High Risk: Clinically depressed - Family History Family History: Family History (Last Reviewed 07/09/18 @ 16:05 by Carleen Miranda) Mother CAD (coronary artery disease) <Lonnie Mohan - Last Filed: 08/02/18 10:21> CR - History & Physical - History of Present Cardiac Event Onset Date: Enter Onset Date of cardiac illnesses in Comment field below Current stable Angina Pectoris:: No Acute Myocardial Infarction within 12 months:: No Coronary Artery Bypass Graft:: No Heart valve replacement or repair:: No PTCA or coronary stenting:: Yes - restent 07/27/18 Heart or Heart-Lung Transplant:: No Heart Failure EF <35%:: No Type of Symptoms:: no sx, just follow up tests for [employer] license. - Sleep Disorder Evaluation Hx of Sleep Apnea: No Do you snore loudly (louder than talking or can be heard through closed doors)?: No Do you often feel tired/ fatigued/ sleepy during daytime?: No Has anyone observed you stop breathing during sleep?: No History of Hypertension (for STOP score): Yes STOP Results: Negative Advanced Directives - Advanced Directives Power of Putty Glazer: Yes Living Will: Yes Advance Directives Information Provided: Yes Advance Directives on File: No DNR Order?:: No Past Medical History - Past Medical Illness Medical History: Past Medical History (Last Reviewed 07/09/18 @ 16:05 by Carleen Miranda) Abnormal stress echo (Acute) R94.39 Atherosclerosis of coronary artery bypass graft without angina pectoris (Acute) 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 Non-ST elevation (NSTEMI) myocardial infarction (Acute) I21.4 White coat syndrome with hypertension (Chronic) I10 RBBB (Chronic) I45.10 Premature ventricular contraction (Chronic) I49.3 Nonrheumatic aortic valve insufficiency (Chronic) I35.1 Atherosclerosis of coronary artery of [place] heart without angina pectoris (Chronic) I25.10 PCI-ERROL-RCA w/ 3.0 x 20 and 3.0 x 38 mm Promus 11/08/17 CABG x 3 LKSC-ulme-wo-side-Mid LAD and end-to-side to the apical segment, Free ABIMAEL-OM, SVG-PDA of the RCA 08/12/2015 Non-alcoholic fatty liver disease (Chronic) K76.0 Hyperlipidemia (Chronic) E78.5 Hypertension (Chronic) I10 - Past Surgical History Surgical History: Past Surgical History (Last Updated 07/27/18 @ 14:45 by Carleen Miranda) H/O coronary artery bypass surgery (Chronic) Onset Date: ~08/12/15 Z95.1 CABG x 3 CFFZ-qufc-zx-side-Mid LAD and end-to-side to the apical segment, Free ABIMAEL-OM, SVG-PDA of the RCA 08/12/2015 History of esophagogastroduodenoscopy (EGD) Onset Date: ~2014 Z98.890 - Family History Summary Family History: Family History (Last Reviewed 07/09/18 @ 16:05 by Carleen Miranda) Mother CAD (coronary artery disease) Social History - Smoking History Smoking Status: Never smoker Hx Tobacco Use: No Hx Smoking Exposure: No - Alcohol Use Alcohol Usage: Yes - 3 drinks per year - Substance Abuse Hx Substance Use: No - Occupation 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):: 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 Left click = Reports ([place]) Review of Present Symptoms: Reports: Appetite - Normal, Appetite - Special Diet, Sleep - Normal. Denies: Shortness of Breath at Rest, Shortness of Breath with Exertion, PVD, Operative Discomfort, Angina, Wound Healing, Dizziness/Lightheadedness, Fatigue, Heart Arrhythmia/Irregularities, Sexual Changes - Pain Is Patient Pain Free?: Yes Risk Factor Assessment - Pulse Pulse Rhythm: Regular - Hypertension How long have you been treated?: 20yrs On medication(s)?: yes - Diabetes Nutrition Referral for Diabetes: No - Obesity Desired Body Weight: 210 Nutritional Referral for Obesity: No - Risk Stratification Risk Guidelines: Lowest Risk: Risk Factor for Smoking, Risk Factor for Dyslipidemia, Risk Factor for Diabetes, Risk Factor for Sedentary Lifestyle, Risk Factor for Depression, Moderate Risk: Risk Factor for Obesity, Risk Factor for Hypertension - For Smoking Smoking Risk Guidelines: Smoking Low Risk: None or quit greater than 6 months ago. Smoking Moderate Risk: Smoker or quit 6 months or less ago. Smoking High Risk: Smoker - For Dyslipidemia Dyslipidemia Risk Guidelines: Low Risk: Moderate Risk: High Risk: 15-25% fat 25.1-29% fat >/= 30% fat. <7% sat fat 7-9% sat fat >9% sat fat. <150 mg chol 150-299 mg chol >/= 300 mg chol. LDL <100 LDL 100-129 LDL >/= 130. Chol/HDL ratio <5.0 Chol/HDL ratio 5.0-6.0 Chol/HDL ratio >6.0. Triglycerides <100 Triglycerides 100-149 Triglycerides >/= 150 - For Diabetes Mellitus Diabetes Risk Guidelines: Diabetes Low Risk: HgA1c <6.5% and/or FBG <120. Diabetes Moderate Risk: HgA1c 6.6-7.9% and/or FBG 120-180. Diabetes High Risk: HgA1c >/= 8% and/or FBG >180 - For Obesity/Overweight Obesity/Overweight Risk Guidelines: Obesity Low Risk: BMI <25.0. Obesity Moderate Risk: BMI 25-29.9. Obesity High Risk: BMI >/= 30.0 - For Hypertension Hypertension Risk Guidelines: Hypertension Low Risk: Systolic <120 and Diastolic <80. Hypertension Moderate Risk: Systolic 120-139 and Diastolic 80-89. Hypertension High Risk: Systolic >/= 140 and Diastolic >/= 90 - For Sedentary Lifestyle Sedentary Lifestyle Risk Guidelines: Sedentary Lifestyle Low Risk: >/= 1,500 kcal/week. Sedentary Lifestyle Moderate Risk: 700-1,499 kcal/week. Sedentary Lifestyle High Risk: < 700 kcal/week - For Depression Depression Risk Guidelines: Depression Low Risk: Not clinically depressed. Depression Moderate Risk: Mildly depressed. Depression High Risk: Clinically depressed - Family History Family History: Family History (Last Reviewed 07/09/18 @ 16:05 by Carleen Miranda) Mother CAD (coronary artery disease) Motivation - Motivation to Participate On a scale of 1 to 10, how prepared are you to commit to attending program?: 10
--- NOTE | 2018-08-02 09:43 | CR.HP_ITS ---
<Brien Sweeney - Last Filed: 08/02/18 09:38> CR - History & Physical - General Arrival date:: 08/02/18 Arrival time:: 09:00 Date of Referral:: 07/27/18 Date of CR Evaluation:: 08/02/18 Referring Physician: Dr. Alfredo Jenkins Primary Diagnosis: PTCA w/PCI intervention coroanry stent - History of Present Cardiac Event Onset Date: Enter Onset Date of cardiac illnesses in Comment field below PTCA or coronary stenting:: Yes - restent Interventions with present event:: heart cath Were there any complications?: none - Medications Home Medications: Ambulatory Orders Medication Instructions Recorded aspirin 81 mg tablet,delayed 81 mg PO DAILY 05/24/17 release clopidogrel 75 mg tablet 75 mg PO DAILY #90 tab 06/07/18 losartan 50 mg tablet 50 mg PO BID #180 tab 06/07/18 metoprolol succinate ER 25 mg 25 mg PO DAILY 07/26/18 tablet,extended release 24 hr - Allergies Allergies/Adverse Reactions: Allergies pravastatin sodium [From Pravachol] Allergy (Verified 11/29/17 09:42) Unknown carvedilol [From Coreg] Adverse Reaction (Intermediate, Verified 12/18/17 16:35) diarrhea atorvastatin calcium [From Lipitor] Adverse Reaction (Verified 11/29/17 09:42) Pain in joints gemfibrozil Adverse Reaction (Verified 11/29/17 09:42) myalgia Past Medical History - Past Medical Illness Medical History: Past Medical History (Last Reviewed 07/09/18 @ 16:05 by Carleen Miranda) Abnormal stress echo (Acute) R94.39 Atherosclerosis of coronary artery bypass graft without angina pectoris (Acute) 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 Non-ST elevation (NSTEMI) myocardial infarction (Acute) I21.4 White coat syndrome with hypertension (Chronic) I10 RBBB (Chronic) I45.10 Premature ventricular contraction (Chronic) I49.3 Nonrheumatic aortic valve insufficiency (Chronic) I35.1 Atherosclerosis of coronary artery of [place] heart without angina pectoris (Chronic) I25.10 PCI-ERROL-RCA w/ 3.0 x 20 and 3.0 x 38 mm Promus 11/08/17 CABG x 3 XBQN-xpxw-kv-side-Mid LAD and end-to-side to the apical segment, Free ABIMAEL-OM, SVG-PDA of the RCA 08/12/2015 Non-alcoholic fatty liver disease (Chronic) K76.0 Hyperlipidemia (Chronic) E78.5 Hypertension (Chronic) I10 - Past Surgical History Surgical History: Past Surgical History (Last Updated 07/27/18 @ 14:45 by Carleen Miranda) H/O coronary artery bypass surgery (Chronic) Onset Date: ~08/12/15 Z95.1 CABG x 3 QRVA-ilme-rd-side-Mid LAD and end-to-side to the apical segment, Free ABIMAEL-OM, SVG-PDA of the RCA 08/12/2015 History of esophagogastroduodenoscopy (EGD) Onset Date: ~2014 Z98.890 Surgical History: coronary bypass surgery, tonsillectomy - Family History Summary Family History: Family History (Last Reviewed 07/09/18 @ 16:05 by Carleen Miranda) Mother CAD (coronary artery disease) Social History - Smoking History Smoking Status: Former smoker Hx Tobacco Use: No Hx Smoking Exposure: No - Alcohol Use Alcohol Usage: Yes - socially - Substance Abuse Hx Substance Use: No - Hobbies, Recreation, Social Activities Recreational Activities: I am able to engage in most, but not all activities Social Environment - Status Marital Status: - Current Living Arrangements Living Environment:: Spouse Risk Factor Assessment - Chief Complaint Chief Complaint: Patient is a former CR Phase II patient who presents back to cardiac rehab today following a recent PCI w/coronary stent intervention on 07/27/2018. - Vital Signs Temperature: 98.7 F Respiratory Rate: 14 Blood Pressure: 130/60 - White Coat Syndrome Nailbeds:: normal in color - Pulse Pulse Rate: 72 Pulse Rhythm: Regular - Hypertension Blood Pressure Sitting - Left Arm: 130/60 - Blood Cholesterol/Lipids Total Cholesterol (mg/dL) Goal = less than 200 mg/dL: 132 HDL Cholesterol (mg/dL) Goal = less than 40 mg/dL: 45 LDL Cholesterol (mg/dL) Goal = less than 70 mg/dL: 69 Triglycerides (mg/dL) Goal = less than 150 mg/dL: 88 - Diabetes Nutrition Referral for Diabetes: No - Obesity Height: 6 ft Weight:: 210 lb Weight in Pounds: 210.0 lbs Weight Source: Estimated by Patient Body Mass Index (BMI): 28.5 Nutritional Referral for Obesity: No - Physical Inactivity Physical Inactivity: Reg Exercise 30 min/day - Risk Stratification Risk Guidelines: Lowest Risk: Risk Factor for Smoking, Risk Factor for Dyslipidemia, Risk Factor for Diabetes, Risk Factor for Sedentary Lifestyle, Risk Factor for Depression, Moderate Risk: Risk Factor for Obesity, Risk Factor for Hypertension - For Smoking Smoking Risk Guidelines: Smoking Low Risk: None or quit greater than 6 months ago. Smoking Moderate Risk: Smoker or quit 6 months or less ago. Smoking High Risk: Smoker - For Dyslipidemia Dyslipidemia Risk Guidelines: Low Risk: Moderate Risk: High Risk: 15-25% fat 25.1-29% fat >/= 30% fat. <7% sat fat 7-9% sat fat >9% sat fat. <150 mg chol 150-299 mg chol >/= 300 mg chol. LDL <100 LDL 100-129 LDL >/= 130. Chol/HDL ratio <5.0 Chol/HDL ratio 5.0-6.0 Chol/HDL ratio >6.0. Triglycerides <100 Triglycerides 100-149 Triglycerides >/= 150 - For Diabetes Mellitus Diabetes Risk Guidelines: Diabetes Low Risk: HgA1c <6.5% and/or FBG <120. Diabetes Moderate Risk: HgA1c 6.6-7.9% and/or FBG 120-180. Diabetes High Risk: HgA1c >/= 8% and/or FBG >180 - For Obesity/Overweight Obesity/Overweight Risk Guidelines: Obesity Low Risk: BMI <25.0. Obesity Moderate Risk: BMI 25-29.9. Obesity High Risk: BMI >/= 30.0 - For Hypertension Hypertension Risk Guidelines: Hypertension Low Risk: Systolic <120 and Diastolic <80. Hypertension Moderate Risk: Systolic 120-139 and Diastolic 80-89. Hypertension High Risk: Systolic >/= 140 and Diastolic >/= 90 - For Sedentary Lifestyle Sedentary Lifestyle Risk Guidelines: Sedentary Lifestyle Low Risk: >/= 1,500 kcal/week. Sedentary Lifestyle Moderate Risk: 700-1,499 kcal/week. Sedentary Lifestyle High Risk: < 700 kcal/week - For Depression Depression Risk Guidelines: Depression Low Risk: Not clinically depressed. Depression Moderate Risk: Mildly depressed. Depression High Risk: Clinically depressed - Family History Family History: Family History (Last Reviewed 07/09/18 @ 16:05 by Carleen Miranda) Mother CAD (coronary artery disease) <Lonnie Mohan - Last Filed: 08/02/18 10:21> CR - History & Physical - History of Present Cardiac Event Onset Date: Enter Onset Date of cardiac illnesses in Comment field below Current stable Angina Pectoris:: No Acute Myocardial Infarction within 12 months:: No Coronary Artery Bypass Graft:: No Heart valve replacement or repair:: No PTCA or coronary stenting:: Yes - restent 07/27/18 Heart or Heart-Lung Transplant:: No Heart Failure EF <35%:: No Type of Symptoms:: no sx, just follow up tests for [employer] license. - Sleep Disorder Evaluation Hx of Sleep Apnea: No Do you snore loudly (louder than talking or can be heard through closed doors)?: No Do you often feel tired/ fatigued/ sleepy during daytime?: No Has anyone observed you stop breathing during sleep?: No History of Hypertension (for STOP score): Yes STOP Results: Negative Advanced Directives - Advanced Directives Power of Railroad Mechanic: Yes Living Will: Yes Advance Directives Information Provided: Yes Advance Directives on File: No DNR Order?:: No Past Medical History - Past Medical Illness Medical History: Past Medical History (Last Reviewed 07/09/18 @ 16:05 by Carleen Miranda) Abnormal stress echo (Acute) R94.39 Atherosclerosis of coronary artery bypass graft without angina pectoris (Acute) 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 Non-ST elevation (NSTEMI) myocardial infarction (Acute) I21.4 White coat syndrome with hypertension (Chronic) I10 RBBB (Chronic) I45.10 Premature ventricular contraction (Chronic) I49.3 Nonrheumatic aortic valve insufficiency (Chronic) I35.1 Atherosclerosis of coronary artery of [place] heart without angina pectoris (C hronic) I25.10 PCI-ERROL-RCA w/ 3.0 x 20 and 3.0 x 38 mm Promus 11/08/17 CABG x 3 ZGNM-gibj-yh-side-Mid LAD and end-to-side to the apical segment, Free ABIMAEL-OM, SVG-PDA of the RCA 08/12/2015 Non-alcoholic fatty liver disease (Chronic) K76.0 Hyperlipidemia (Chronic) E78.5 Hypertension (Chronic) I10 - Past Surgical History Surgical History: Past Surgical History (Last Updated 07/27/18 @ 14:45 by Carleen Miranda) H/O coronary artery bypass surgery (Chronic) Onset Date: ~08/12/15 Z95.1 CABG x 3 FWCE-svlh-vb-side-Mid LAD and end-to-side to the apical segment, Free ABIMAEL-OM, SVG-PDA of the RCA 08/12/2015 History of esophagogastroduodenoscopy (EGD) Onset Date: ~2014 Z98.890 - Family History Summary Family History: Family History (Last Reviewed 07/09/18 @ 16:05 by Carleen Miranda) Mother CAD (coronary artery disease) Social History - Smoking History Smoking Status: Never smoker Hx Tobacco Use: No Hx Smoking Exposure: No - Alcohol Use Alcohol Usage: Yes - 3 drinks per year - Substance Abuse Hx Substance Use: No - Occupation 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):: 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 Left click = Reports ([place]) Review of Present Symptoms: Reports: Appetite - Normal, Appetite - Special Diet, Sleep - Normal. Denies: Shortness of Breath at Rest, Shortness of Breath with Exertion, PVD, Operative Discomfort, Angina, Wound Healing, Dizziness/Lightheadedness, Fatigue, Heart Arrhythmia/Irregularities, Sexual Changes - Pain Is Patient Pain Free?: Yes Risk Factor Assessment - Pulse Pulse Rhythm: Regular - Hypertension How long have you been treated?: 20yrs On medication(s)?: yes - Diabetes Nutrition Referral for Diabetes: No - Obesity Desired Body Weight: 210 Nutritional Referral for Obesity: No - Risk Stratification Risk Guidelines: Lowest Risk: Risk Factor for Smoking, Risk Factor for Dyslipidemia, Risk Factor for Diabetes, Risk Factor for Sedentary Lifestyle, Risk Factor for Depression, Moderate Risk: Risk Factor for Obesity, Risk Factor for Hypertension - For Smoking Smoking Risk Guidelines: Smoking Low Risk: None or quit greater than 6 months ago. Smoking Moderate Risk: Smoker or quit 6 months or less ago. Smoking High Risk: Smoker - For Dyslipidemia Dyslipidemia Risk Guidelines: Low Risk: Moderate Risk: High Risk: 15-25% fat 25.1-29% fat >/= 30% fat. <7% sat fat 7-9% sat fat >9% sat fat. <150 mg chol 150-299 mg chol >/= 300 mg chol. LDL <100 LDL 100-129 LDL >/= 130. Chol/HDL ratio <5.0 Chol/HDL ratio 5.0-6.0 Chol/HDL ratio >6.0. Triglycerides <100 Triglycerides 100-149 Triglycerides >/= 150 - For Diabetes Mellitus Diabetes Risk Guidelines: Diabetes Low Risk: HgA1c <6.5% and/or FBG <120. Diabetes Moderate Risk: HgA1c 6.6-7.9% and/or FBG 120-180. Diabetes High Risk: HgA1c >/= 8% and/or FBG >180 - For Obesity/Overweight Obesity/Overweight Risk Guidelines: Obesity Low Risk: BMI <25.0. Obesity Moderate Risk: BMI 25-29.9. Obesity High Risk: BMI >/= 30.0 - For Hypertension Hypertension Risk Guidelines: Hypertension Low Risk: Systolic <120 and Diastolic <80. Hypertension Moderate Risk: Systolic 120-139 and Diastolic 80-89. Hypertension High Risk: Systolic >/= 140 and Diastolic >/= 90 - For Sedentary Lifestyle Sedentary Lifestyle Risk Guidelines: Sedentary Lifestyle Low Risk: >/= 1,500 kcal/week. Sedentary Lifestyle Moderate Risk: 700-1,499 kcal/week. Sedentary Lifestyle High Risk: < 700 kcal/week - For Depression Depression Risk Guidelines: Depression Low Risk: Not clinically depressed. Depression Moderate Risk: Mildly depressed. Depression High Risk: Clinically depressed - Family History Family History: Family History (Last Reviewed 07/09/18 @ 16:05 by Carleen Miranda) Mother CAD (coronary artery disease) Motivation - Motivation to Participate On a scale of 1 to 10, how prepared are you to commit to attending program?: 10
[2018-08-02 09:52] VITALS: BP 130/60; PULSE 72; RESP 14; TEMP 37.1; BMI 28.5
--- NOTE | 2018-08-02 10:40 | PCM.CR.ITP ---
General Information - Education/Goals Individual Counseling: Initial Assessment: High Blood Pressure, Overweight/Obesity, Hypertension, Family History of Heart Disease (under 65 years) Cardiac Rehabilitation Goals: 1. Maintain the individual as the primary focus of care. 2. To improve the patient's quality of life. 3. Identification of cardiac risk factors and provide cardiac risk factor management. 4. Enhance the psychosocial status of the patient. 5. Reconditioning enough to allow the patient to resume customary activities. 6. Control symptoms of cardiac disease Scale for measuring improvement of personal goals: Enter appropriate number in Comments. 2 = Unchanged. 3 = Slightly Better. 4 = Moderate Improvement. 5 = Met my Goal Personal Goals: Initial Assessment: Get back to work, or to resume activities faster, Improve muscle strength and endurance Exercise - Initial Assessment - Visit Date of Eval: 08/02/18 - Stages of Change Stages of Change:: Action - Physician Prescribed Exercise Modalities: Treadmill, Biodyne, Rower, Airdyne, NuStep, SciFit Frequency (days/week): 3x/week for 12 weeks [36 sessions] Duration (Minutes):: 30 Intensity: Rating of perceived exertion (Remedios Scale) - Hypertension Do any of the following apply?: Yes, Medication, Diet Resting Blood Pressure:: 130/60 - Intervention Home Exercise/Activity Goal:: Moderate Exercise 30 min/day x 5 days/wk - Education Goals:: Warm-up, RPE REMEDIOS Scale, S/S, Safe Exercise, Self-Monitoring - Exercise Program Goals Exercise Program Goals: B/P <130/80 Nutrition - Initial Assessment - Program Goals Nutrition Program Goals: LDL <70. Total Cholesterol <200. HDL >45. Triglycerides <150. HgbA1C <7%. BMI <25 - Visit Date of Assessment:: 08/02/18 - Stages of Change Stages of Change:: Action - Lipids Total Cholesterol (mg/dL) Goal = less than 200 mg/dL: 132 HDL Cholesterol (mg/dL) Goal = less than 45 mg/dL: 45 LDL Cholesterol (mg/dL) Goal = less than 70 mg/dL: 69 Triglycerides (mg/dL) Goal = less than 150 mg/dL: 88 Lipid Medication: no - Diabetes Diabetes:: No Do you monitor your blood sugar at home?: No - Weight Management Height: 6 ft Weight:: 210 lb Weight Goal (kg):: 210 lb Body Fat %:: 28.8 Goal % Body Fat:: 25 - Intervention Referral to dietitian:: No Referral to Diabetic Clinic:: No Will attend diet classes:: Yes - Education Gave educational materials for:: Healthy eating Tobacco - Initial Assessment - Program Goals Tobacco Program Goals: Complete smoking cessation. Attend education classes. Improve Knowledge Test score - Stage of Change Stages of Change:: Maintenance - Learning Barriers Learning Barriers: Vision - reading glasses., Ready to Learn Total Score:: 20 - Family Support Do you have family support?: Yes - Tobacco Use Tobacco Use: Non-smoker Do you use smokeless tobacco?: No - Intervention Smoking Cessation Referral:: No Individual Education/Counseling:: No Education Schedule Given:: Yes - Education Gave educational material for:: Tobacco triggers, Coronary artery disease, Risk factors, Sexuality, Medical compliance, Cardiac A&P, Angina signs & symptoms Psychosocial - Initial Assess - Target Goals Target Goals: Assess presence or absence of depression. Using a valid screening tool, maximizes coping skills. Positive support system - Stages of Change Stages of Change:: Action - Psychosocial Test Tool Used:: HANDS Depression Questionnaire Self-reported stress:: no Total Mood Screening Score:: 0 Self-Efficacy Score:: 9 - Intervention PS - Interventions: Yes Attend Stress Management Classes, Yes Uses Stress Management Skills, No Referral to Mental Health, No Referral to [facility] Case Management, No Referral to Physician - Education Gave educational materials for:: Coping techniques, Signs & symptoms of depression, Stress management, Relaxation techniques - Patient/Program Goal Preventative Medication(s):: Aspirin, CHRIS inhibitor, Clopidogrel, Beta nilson, Statin/lipid - Assistive Devices Assistive Devices:: None Fall Risk Assessed:: Yes Patient Health Questionnaire Initial Assessment 1. Little interest or pleasure in doing things: Not at all 2. Feeling down, depressed, or hopeless: Not at all 3. Trouble falling or staying asleep, or sleeping too much: Not at all 4. Feeling tired or having little energy: Not at all 5. Poor appetite or overeating: Not at all 6. Feeling bad about yourself -- or that you are a failure or have let yourself or your family down: Not at all 7. Trouble concentrating on things, such as reading the newspaper or watching television: Not at all 8. Moving or speaking so slowly that other people could have noticed. Or the opposite - being so fidgety or restless that you have been moving around a lot more than usual: Not at all 9. Thoughts that you would be better off , or of hurting yourself in some way: Not at all Total Score: 0 BUSTER-Q SV Test - Statements CAD is a disease of the arteries in the heart: False Examples of risk factors for heart disease: True Angina is chest pain or discomfort: True The benefits of resistance training include: True Eating more meat and dairy products: False Anti-platelet medications such as aspirin are important: True The only effective way to manage stress: False An exercise warm-up slowly increases heart rate: True Prepared, processed foods usually have high sodium: True Depression is common after a heart attack: True The statin medications lower cholesterol: True To control blood pressure, lower the amount of sodium: True If someone gets chest discomfort during walking: False Transfats are partially hydrogenated vegetable oils: True Sleep apnea that is not treated increases the risk: False To control cholesterol, one should become a vegetarian: False Someone knows if he/she is exercising at the right level: True Diabetes cannot be prevented with exercise & health eating: False Stress is a large risk for heart attack: True A diet that can help lower blood pressure is rich in: True - Total Score Total Correct Responses: 20 Self-Efficacy Initial Assessment We would like to know how confident you are in doing certain activities. Please select your confidence level for:: Select your confidence level for the following using the scale 1-10 where 1 is not at all confident and 10 is totally confident. Your score is the average of all 6 responses. Fatigue: How confident are you that you can keep the fatigue caused by your disease from interfering with the things you want to do? Select Number: 10 Physical Discomfort or Pain: How confident are you that you can keep the physical discomfort or pain of your disease from interfering with the things you want to do? Select Number: 10 Emotional Distress: How confident are you that you can keep the emotional distress caused by your disease from interfering with the things you want to do? Select Number: 10 Other Symptoms or Health Problems: How confident are you that you can keep other symptoms or health problems from interfering with the things you want to do? Select Number: 9 Different Tasks and Activities: How confident are you that you can do the different tasks and activities needed to manage your health condition so as to reduce your need to see a doctor? Select Number: 10 Medication: How confident are you that you can do things other than just taking medication to reduce how much your illness affects your everyday life? Select Number: 10 Total Score:: 9 Nutrition Survey - Nutrition Survey Instructions Scoring Instructions: Scoring is as follows: Yes = 1 points. No = 0 point. Patient score that is >/=12 is considered to be at potential nutritional risk and could benefit from a referral to a registered dietitian. - Nutrition Survey Initial Have you lost >10 lbs over the past 2 months without trying?: No Are you following a special diet at home for diabetes, low fat, or low salt?: No Are you interested in meeting with a dietitian for help understanding your diet?: No Do you eat less than 3 meals a day?: No Do you eat fatty meats (harris, sausage, ribs, etc), fried foods, desserts, large amounts of salad dressings, margarine, butter, or cheese most days?: No Do you have food allergies? [Enter types in comment field]: No Do you eat in restaurants more than 3 times a week?: No Do you season food with salt, seasoning salt, or garlic salt?: Yes Do you used canned, boxed, frozen meals, or soups, seasoning packets?: No Total Score:: 1
[2018-08-02 10:57] VITALS: BP 130/60
== END ==
PROVIDERS: Family Provider Family Medicine Geriatric Medicine; PCP Family Medicine Geriatric Medicine; Referring Provider Internal Medicine Cardiovascular Disease; Visit Provider Internal Medicine Cardiovascular Disease
DX: Z95.5 Presence of coronary angioplasty implant and graft (principal)

== ENCOUNTER 2018-08-10 15:15 | Outpatient (RCR) | payer MEDICARE, OTHER, SELFPAY ==
[2018-07-27 13:33] VITALS: BMI 27.7
[2018-08-02 09:52] VITALS: BMI 28.5
== END 2018-08-12 23:59 ==
LOC: CR 15:15
PROVIDERS: Family Provider Family Medicine Geriatric Medicine; PCP Family Medicine Geriatric Medicine; Referring Provider Internal Medicine Cardiovascular Disease; Visit Provider Internal Medicine Cardiovascular Disease
DX: I25.810 Atherosclerosis of coronary artery bypass graft(s) without angina pectoris (principal); Z95.5 Presence of coronary angioplasty implant and graft; Z95.1 Presence of aortocoronary bypass graft
CPT/HCPCS: 93798

== ENCOUNTER 2018-09-10 15:15 | Outpatient (RCR) | payer MEDICARE, OTHER, SELFPAY ==
[2018-07-27 13:33] VITALS: BMI 27.7
[2018-08-02 09:52] VITALS: BMI 28.5
--- NOTE | 2018-08-31 08:46 | PCM.CR.ITP ---
General Information - General Information Admitting Diagnosis: PCI with stent - Education/Goals Cardiac Rehabilitation Goals: 1. Maintain the individual as the primary focus of care. 2. To improve the patient's quality of life. 3. Identification of cardiac risk factors and provide cardiac risk factor management. 4. Enhance the psychosocial status of the patient. 5. Reconditioning enough to allow the patient to resume customary activities. 6. Control symptoms of cardiac disease Scale for measuring improvement of personal goals: Enter appropriate number in Comments. 2 = Unchanged. 3 = Slightly Better. 4 = Moderate Improvement. 5 = Met my Goal Exercise - 30-day Assessment - Visit Date of Eval: 08/31/18 Session #:: 11 - Stages of Change Stages of Change:: Action - Physician Prescribed Exercise Modalities: Treadmill, Rower, NuStep Frequency (days/week): 3 Duration (Minutes):: 30-45 Intensity: 60-80% age predicted maximum heart rate reserve METs - Progression: 0.5-1.0 MET, RPE 11-14 WEEK: 6.2 Target Heart Rate:: 116-132 Max HR 127 - Hypertension Resting Blood Pressure:: 168/84 Peak Exercise Blood Pressure:: 190/70 - Intervention Home Exercise/Activity Goal:: Sitting Time <3 hrs/day - Education Goals:: Warm-up, RPE JAIR Scale, S/S, Safe Exercise, Self-Monitoring - Exercise Program Goals Exercise Program Goals: Aerobic Activity >30 min, B/P <130/80 Nutrition - Initial Assessment - Program Goals Nutrition Program Goals: LDL <70. Total Cholesterol <200. HDL >45. Triglycerides <150. HgbA1C <7%. BMI <25 - Diabetes Do you monitor your blood sugar at home?: No Nutrition - 30-Day Assessment - Program Goals Nutrition Program Goals: LDL <70. Total Cholesterol <200. HDL >45. Triglycerides <150. HgbA1C <7%. BMI <25 - Visit Date of Eval: 08/31/18 - Stages of Change Stages of Change:: Action - Diabetes Diabetes:: No - Weight Management Weight:: 100.698 kg - Intervention Referral to dietitian:: No Referral to Diabetic Clinic:: No Will attend diet classes:: Yes - Education Attended class for:: Signs & symptoms of hypoglycemia, Signs & symptoms of hyperglycemia, Relate diabetes to coronary artery disease, Healthy eating Tobacco - Initial Assessment - Program Goals Tobacco Program Goals: Complete smoking cessation. Attend education classes. Improve Knowledge Test score - Learning Barriers Learning Barriers: Vision - reading glasses., Ready to Learn Tobacco - 30-Day Assessment - Program Goals Tobacco Program Goals: Complete smoking cessation. Attend education classes. Improve Knowledge Test score - Stage of Change Stages of Change:: Action - Learning Barriers Learning Barriers: Participates in education - Family Support Do you have family support?: Yes - Tobacco Use Tobacco Use: Non-smoker Do you use smokeless tobacco?: No - Intervention Smoking Cessation Referral:: No Individual Education/Counseling:: No Education Schedule Given:: Yes - Education Attended class for:: Tobacco triggers, Coronary artery disease, Risk factors, Sexuality, Medical compliance, Cardiac A&P, Angina signs & symptoms Psychosocial - Initial Assess - Target Goals Target Goals: Assess presence or absence of depression. Using a valid screening tool, maximizes coping skills. Positive support system - Psychosocial Test Tool Used:: HANDS Depression Questionnaire - Assistive Devices Fall Risk Assessed:: Yes Psychosocial - 30-Day Assess - Target Goals Target Goals: Assess presence or absence of depression. Using a valid screening tool, maximizes coping skills. Positive support system - Stages of Change Stages of Change:: Action - Psychosocial Test Tool Used:: HANDS Depression Questionnaire - Intervention PS - Interventions: Yes Attend Stress Management Classes, Yes Uses Stress Management Skills, No Referral to Mental Health, No Referral to [facility] Case Management, No Referral to Physician - Education Attended classes for:: Coping techniques, Signs & symptoms of depression, Stress management, Relaxation techniques - Assistive Devices Assistive Devices:: None Fall Risk Assessed:: Yes Patient Health Questionnaire 30-Day Re-eval Assessment 1. Little interest or pleasure in doing things: Not at all 2. Feeling down, depressed, or hopeless: Not at all 3. Trouble falling or staying asleep, or sleeping too much: Not at all 4. Feeling tired or having little energy: Not at all 5. Poor appetite or overeating: Not at all 6. Feeling bad about yourself -- or that you are a failure or have let yourself or your family down: Not at all 7. Trouble concentrating on things, such as reading the newspaper or watching television: Not at all 8. Moving or speaking so slowly that other people could have noticed. Or the opposite - being so fidgety or restless that you have been moving around a lot more than usual: Not at all 9. Thoughts that you would be better off , or of hurting yourself in some way: Not at all How difficult have these problems made it for you to do your work, take care of things at home, or get along with other people?: Not difficult at all Total Score: 0 Self-Efficacy 30-Day Re-eval Assessment We would like to know how confident you are in doing certain activities. Please select your confidence level for:: Select your confidence level for the following using the scale 1-10 where 1 is not at all confident and 10 is totally confident. Your score is the average of all 6 responses. Fatigue: How confident are you that you can keep the fatigue caused by your disease from interfering with the things you want to do? Select Number: 10 Physical Discomfort or Pain: How confident are you that you can keep the physical discomfort or pain of your disease from interfering with the things you want to do? Select Number: 10 Emotional Distress: How confident are you that you can keep the emotional distress caused by your disease from interfering with the things you want to do? Select Number: 10 Other Symptoms or Health Problems: How confident are you that you can keep other symptoms or health problems from interfering with the things you want to do? Select Number: 10 Different Tasks and Activities: How confident are you that you can do the different tasks and activities needed to manage your health condition so as to reduce your need to see a doctor? Select Number: 10 Medication: How confident are you that you can do things other than just taking medication to reduce how much your illness affects your everyday life? Select Number: 10 Total Score:: 10
[2018-08-31 08:50] VITALS: BP 168/84; BP 190/70
== END 2018-09-11 23:59 ==
LOC: CR 15:15
PROVIDERS: Family Provider Family Medicine Geriatric Medicine; PCP Family Medicine Geriatric Medicine; Referring Provider Internal Medicine Cardiovascular Disease; Visit Provider Internal Medicine Cardiovascular Disease
DX: I25.810 Atherosclerosis of coronary artery bypass graft(s) without angina pectoris (principal); Z95.5 Presence of coronary angioplasty implant and graft; Z95.1 Presence of aortocoronary bypass graft
CPT/HCPCS: 93798

== ENCOUNTER 2018-10-12 15:15 | Outpatient (RCR) | payer MEDICARE, OTHER, SELFPAY ==
[2018-07-27 13:33] VITALS: BMI 27.7
[2018-09-12 01:39] VITALS: BP 168/84; BP 190/70; BMI 28.5
--- NOTE | 2018-10-01 08:13 | PCM.CR.ITP ---
Exercise - 60-Day Assessment - Visit Date of Eval: 10/01/18 Session #:: 24 - Stages of Change Stages of Change:: Action - Physician Prescribed Exercise Modalities: Treadmill, Airdyne, NuStep Frequency (days/week): 3 Duration (Minutes):: 30-45 Intensity: 60-80% age predicted maximum heart rate reserve METs - Progression: 0.5-1.0 MET, RPE 11-14 WEEK: 8.5 Target Heart Rate:: 116-132 - Hypertension Resting Blood Pressure:: 158/78 Peak Exercise Blood Pressure:: 196/78 Medication Changes:: Yes - started on HCTZ 12.5mg - Intervention Home Exercise/Activity Goal:: Moderate Exercise 30 min/day x 5 days/wk - Education Goals:: Warm-up, RPE JAIR Scale, S/S, Safe Exercise, Self-Monitoring - Exercise Program Goals Exercise Program Goals: Aerobic Activity >30 min Nutrition - Initial Assessment - Program Goals Nutrition Program Goals: LDL <70. Total Cholesterol <200. HDL >45. Triglycerides <150. HgbA1C <7%. BMI <25 - Diabetes Do you monitor your blood sugar at home?: No Nutrition - 60-Day Assessment - Program Goals Nutrition Program Goals: LDL <70. Total Cholesterol <200. HDL >45. Triglycerides <150. HgbA1C <7%. BMI <25 - Visit Date of Eval: 10/01/18 - Stages of Change Stages of Change:: Action - Lipids Has the patient seen the dietitian?: Yes - Diabetes Diabetes:: No Insulin: No Non-Insulin Dependent?: No - Weight Management Weight:: 223 lb - up 2# - Intervention Referral to dietitian:: No Referral to Diabetic Clinic:: No Will attend diet classes:: Yes - Education Attended class for:: Healthy eating Tobacco - Initial Assessment - Program Goals Tobacco Program Goals: Complete smoking cessation. Attend education classes. Improve Knowledge Test score - Learning Barriers Learning Barriers: Vision - reading glasses., Ready to Learn Tobacco - 60-Day Assessment - Program Goals Tobacco Program Goals: Complete smoking cessation. Attend education classes. Improve Knowledge Test score - Stage of Change Stages of Change:: Action - Learning Barriers Learning Barriers: Participates in education - Family Support Do you have family support?: Yes - Tobacco Use Tobacco Use: Non-smoker Do you use smokeless tobacco?: No - Intervention Smoking Cessation Referral:: No Individual Education/Counseling:: No Education Schedule Given:: Yes - Education Attended class for:: Coronary artery disease, Risk factors, Sexuality, Medical compliance, Cardiac A&P, Angina signs & symptoms Psychosocial - 60-Day Assess - Target Goals Target Goals: Assess presence or absence of depression. Using a valid screening tool, maximizes coping skills. Positive support system - Stages of Change Stages of Change:: Action - Psychosocial Test Tool Used:: HANDS Depression Questionnaire - Intervention PS - Interventions: Yes Attend Stress Management Classes, Yes Uses Stress Management Skills, No Referral to Mental Health, No Referral to [facility] Case Management, No Referral to Physician - Education Attended classes for:: Coping techniques, Signs & symptoms of depression, Stress management, Relaxation techniques - Patient/Program Goal Preventative Medication(s):: Aspirin, Clopidogrel, Beta nilson, Statin/lipid - Assistive Devices Assistive Devices:: None Fall Risk Assessed:: Yes Patient Health Questionnaire 60-Day Re-eval Assessment 1. Little interest or pleasure in doing things: Not at all 2. Feeling down, depressed, or hopeless: Not at all 3. Trouble falling or staying asleep, or sleeping too much: Not at all 4. Feeling tired or having little energy: Not at all 5. Poor appetite or overeating: Not at all 6. Feeling bad about yourself -- or that you are a failure or have let yourself or your family down: Not at all 7. Trouble concentrating on things, such as reading the newspaper or watching television: Not at all 8. Moving or speaking so slowly that other people could have noticed. Or the opposite - being so fidgety or restless that you have been moving around a lot more than usual: Not at all 9. Thoughts that you would be better off , or of hurting yourself in some way: Not at all Total Score: 0 Self-Efficacy 60-Day Re-eval Assessment We would like to know how confident you are in doing certain activities. Please select your confidence level for:: Select your confidence level for the following using the scale 1-10 where 1 is not at all confident and 10 is totally confident. Your score is the average of all 6 responses. Fatigue: How confident are you that you can keep the fatigue caused by your disease from interfering with the things you want to do? Select Number: 10 Physical Discomfort or Pain: How confident are you that you can keep the physical discomfort or pain of your disease from interfering with the things you want to do? Select Number: 10 Emotional Distress: How confident are you that you can keep the emotional distress caused by your disease from interfering with the things you want to do? Select Number: 10 Other Symptoms or Health Problems: How confident are you that you can keep other symptoms or health problems from interfering with the things you want to do? Select Number: 10 Different Tasks and Activities: How confident are you that you can do the different tasks and activities needed to manage your health condition so as to reduce your need to see a doctor? Select Number: 10 Medication: How confident are you that you can do things other than just taking medication to reduce how much your illness affects your everyday life? Select Number: 10 Total Score:: 10
[2018-10-01 08:18] VITALS: BP 158/78; BP 196/78
== END 2018-10-12 23:59 ==
LOC: CR 15:15
PROVIDERS: Family Provider Family Medicine Geriatric Medicine; PCP Family Medicine Geriatric Medicine; Referring Provider Internal Medicine Cardiovascular Disease; Visit Provider Internal Medicine Cardiovascular Disease
DX: I25.810 Atherosclerosis of coronary artery bypass graft(s) without angina pectoris (principal); Z95.5 Presence of coronary angioplasty implant and graft; Z95.1 Presence of aortocoronary bypass graft
CPT/HCPCS: 93798

== ENCOUNTER → 2018-10-29 11:47 | Outpatient (CLI) | payer MEDICARE, OTHER, SELFPAY ==
[2018-07-27 13:33] VITALS: BMI 27.7
[2018-08-22 15:53] VITALS: BMI 29.9
[2018-10-13 01:03] VITALS: BMI 29.9
--- NOTE | 2018-10-29 13:15 | STRESSREP ---
Stress Test Report Treadmill EKG: Resting EKG: Normal sinus rhythm, normal axis, incomplete right bundle branch block, rare PVC. Treadmill EKG: Patient exercise according to a Morgan protocol for 9 minutes and 0 seconds achieving a maximum workload of 10.40 METS. His resting heart rate was 81 beats a minute anali to maximum 1 6 0 bpm which represented 103% of the maximal age-predicted heart rate. Resting blood pressure was 162/94, and anali to maximum of 234/70. Test was terminated due to the attainment of target heart rate. During exercise the patient's heart rate increased as expected. The patient had no dynamic EKG changes to suggest ischemia. Rare PVCs noted. Conclusions normal, adequate treadmill EKG. Negative for ischemia by EKG criteria. No anginal symptoms noted. Rare PVCs noted. Baseline hypertension and hypertensive blood pressure response to exercise. Average exercise capacity for age. Test terminated due to the attainment target heart rate. No complications.
== END ==
PROVIDERS: Family Provider Family Medicine Geriatric Medicine; PCP Family Medicine Geriatric Medicine; Referring Provider Nurse Practitioner Family; Visit Provider Nurse Practitioner Family
DX: I25.10 Atherosclerotic heart disease of native coronary artery without angina pectoris (principal); Z95.5 Presence of coronary angioplasty implant and graft; Z95.1 Presence of aortocoronary bypass graft
CPT/HCPCS: 93017; 93798

== ENCOUNTER 2018-10-29 15:15 | Outpatient (RCR) | payer MEDICARE, OTHER, SELFPAY ==
[2018-07-27 13:33] VITALS: BMI 27.7
[2018-10-13 01:03] VITALS: BP 158/78; BP 196/78; BMI 29.9
--- NOTE | 2018-10-31 09:54 | PCM.CR.ITP ---
Exercise - Final/Discharge - Visit Date of Eval: 10/31/18 Session #:: 36 - Stages of Change Stages of Change:: Action - Physician Prescribed Exercise Modalities: Treadmill, Rower, Airdyne, NuStep Frequency (days/week): 3 Duration (Minutes):: 30-45 Intensity: 60-80% age predicted maximum heart rate reserve METs - Progression: 0.5-1.0 MET, RPE 11-14 WEEK: 8.5 Target Heart Rate:: 116-132 - Hypertension Do any of the following apply?: Yes, Medication, Diet Resting Blood Pressure:: 170/90 - White Coat Syndrome Peak Exercise Blood Pressure:: 170/90 - Intervention Home Exercise/Activity Goal:: Sitting Time <3 hrs/day - Education Goal Progress: Goal Met - Exercise Program Goals Exercise Program Goals: Aerobic Activity >30 min Nutrition - Initial Assessment - Program Goals Nutrition Program Goals: LDL <70. Total Cholesterol <200. HDL >45. Triglycerides <150. HgbA1C <7%. BMI <25 - Diabetes Do you monitor your blood sugar at home?: No Nutrition - Final Assessment - Program Goals Nutrition Program Goals: LDL <70. Total Cholesterol <200. HDL >45. Triglycerides <150. HgbA1C <7%. BMI <25 - Visit Date of Eval: 10/31/18 - Stages of Change Stages of Change:: Action - Diabetes Diabetes:: No - Weight Management Height: 6 ft Weight:: 223 lb Body Fat %:: 28.5 - Intervention Referral to dietitian:: No Referral to Diabetic Clinic:: No Will attend diet classes:: Yes - Education Education Goal Reached?: Yes Tobacco - Initial Assessment - Program Goals Tobacco Program Goals: Complete smoking cessation. Attend education classes. Improve Knowledge Test score - Learning Barriers Learning Barriers: Vision - reading glasses., Ready to Learn Tobacco - Final Assessment - Program Goals Tobacco Program Goals: Complete smoking cessation. Attend education classes. Improve Knowledge Test score - Stage of Change Stages of Change:: Action - Family Support Do you have family support?: Yes - Tobacco Use Tobacco Use: Non-smoker Do you use smokeless tobacco?: No - Intervention Smoking Cessation Referral:: No Individual Education/Counseling:: No Education Schedule Given:: Yes - Education Education Goal Reached?: Yes Psychosocial - Initial Assess - Target Goals Target Goals: Assess presence or absence of depression. Using a valid screening tool, maximizes coping skills. Positive support system - Psychosocial Test Tool Used:: HANDS Depression Questionnaire - Assistive Devices Fall Risk Assessed:: Yes Psychosocial - Final Assessmen - Target Goals Target Goals: Assess presence or absence of depression. Using a valid screening tool, maximizes coping skills. Positive support system - Stages of Change Stages of Change:: Action - Psychosocial Test Tool Used:: HANDS Depression Questionnaire - Intervention PS - Interventions: Yes Attend Stress Management Classes, Yes Uses Stress Management Skills, No Referral to Mental Health, No Referral to [facility] Case Management, No Referral to Physician - Education Education Goal Reached?: Yes - Patient/Program Goal Preventative Medication(s):: Aspirin, Clopidogrel, Beta nilson, Statin/lipid - Assistive Devices Assistive Devices:: None Fall Risk Assessed:: Yes Patient Health Questionnaire Discharge Assessment 1. Little interest or pleasure in doing things: Not at all 2. Feeling down, depressed, or hopeless: Not at all 3. Trouble falling or staying asleep, or sleeping too much: Not at all 4. Feeling tired or having little energy: Not at all 5. Poor appetite or overeating: Not at all 6. Feeling bad about yourself -- or that you are a failure or have let yourself or your family down: Not at all 7. Trouble concentrating on things, such as reading the newspaper or watching television: Not at all 8. Moving or speaking so slowly that other people could have noticed. Or the opposite - being so fidgety or restless that you have been moving around a lot more than usual: Not at all 9. Thoughts that you would be better off , or of hurting yourself in some way: Not at all Total Score: 0 BUSTER-Q SV Test - Statements CAD is a disease of the arteries in the heart: False Examples of risk factors for heart disease: True Angina is chest pain or discomfort: True The benefits of resistance training include: True Eating more meat and dairy products: False Anti-platelet medications such as aspirin are important: True The only effective way to manage stress: False An exercise warm-up slowly increases heart rate: True Prepared, processed foods usually have high sodium: True Depression is common after a heart attack: True The statin medications lower cholesterol: True To control blood pressure, lower the amount of sodium: True If someone gets chest discomfort during walking: False Transfats are partially hydrogenated vegetable oils: True Sleep apnea that is not treated increases the risk: False To control cholesterol, one should become a vegetarian: False Someone knows if he/she is exercising at the right level: True Diabetes cannot be prevented with exercise & health eating: False Stress is a large risk for heart attack: True A diet that can help lower blood pressure is rich in: True - Total Score Total Correct Responses: 20 Self-Efficacy Discharge Assessment We would like to know how confident you are in doing certain activities. Please select your confidence level for:: Select your confidence level for the following using the scale 1-10 where 1 is not at all confident and 10 is totally confident. Your score is the average of all 6 responses. Fatigue: How confident are you that you can keep the fatigue caused by your disease from interfering with the things you want to do? Select Number: 10 Physical Discomfort or Pain: How confident are you that you can keep the physical discomfort or pain of your disease from interfering with the things you want to do? Select Number: 10 Emotional Distress: How confident are you that you can keep the emotional distress caused by your disease from interfering with the things you want to do? Select Number: 10 Other Symptoms or Health Problems: How confident are you that you can keep other symptoms or health problems from interfering with the things you want to do? Select Number: 10 Different Tasks and Activities: How confident are you that you can do the different tasks and activities needed to manage your health condition so as to reduce your need to see a doctor? Select Number: 10 Medication: How confident are you that you can do things other than just taking medication to reduce how much your illness affects your everyday life? Select Number: 10 Total Score:: 10 Nutrition Survey - Nutrition Survey Instructions Scoring Instructions: Scoring is as follows: Yes = 1 points. No = 0 point. Patient score that is >/=12 is considered to be at potential nutritional risk and could benefit from a referral to a registered dietitian. - Nutrition Survey Discharge Have you lost >10 lbs over the past 2 months without trying?: No Are you following a special diet at home for diabetes, low fat, or low salt?: Yes Are you interested in meeting with a dietitian for help understanding your diet?: No Do you eat less than 3 meals a day?: No Do you eat fatty meats (harris, sausage, ribs, etc), fried foods, desserts, large amounts of salad dressings, margarine, butter, or cheese most days?: No Do you have food allergies? [Enter types in comment field]: No Do you eat in restaurants more than 3 times a week?: No Do you season food with salt, seasoning salt, or garlic salt?: No Do you used canned, boxed, frozen meals, or soups, seasoning packets?: No Total Score:: 1
[2018-10-31 09:59] VITALS: BP 170/90
== END 2018-11-11 23:59 ==
LOC: CR 15:15
PROVIDERS: Family Provider Family Medicine Geriatric Medicine; PCP Family Medicine Geriatric Medicine; Referring Provider Internal Medicine Cardiovascular Disease; Visit Provider Internal Medicine Cardiovascular Disease
DX: I25.810 Atherosclerosis of coronary artery bypass graft(s) without angina pectoris (principal); Z95.5 Presence of coronary angioplasty implant and graft; Z95.1 Presence of aortocoronary bypass graft
CPT/HCPCS: 93798

== ENCOUNTER → 2019-01-07 | Outpatient (CLI) | payer MEDICARE, OTHER, SELFPAY ==
[2018-07-27 13:33] VITALS: BMI 27.7
[2018-10-13 01:03] VITALS: BMI 29.9
--- NOTE | 2019-01-07 15:51 | RAD_ITS ---
STUDY: X-RAY - LEFT ELBOW REASON FOR EXAM: Male, 64 years old. Left elbow swelling TECHNIQUE: 2 view(s) of the elbow. COMPARISON: Prior study of 06/20/2018 FINDINGS: There is a small enthesophyte in the region of the triceps tendon insertion on the olecranon process. Normal radiocapitellar and ulnotrochlear articulations. There is soft tissue swelling posterior to the olecranon process. A punctate soft tissue air density is seen in the region of the olecranon process enthesophyte. RAD/Elbow 2 Views IMPRESSION: Soft tissue swelling posterior to the olecranon process consistent with olecranon bursitis. There is a punctate soft tissue air density in the region of an olecranon process enthesophyte. Electronically Signed: Gabino Jackson MD at 17:24 EDT , Service support ,
[2019-01-07 15:53] LABS: Pathologist Comment May follow
[2019-01-07 16:20] LABS: Absolute Lymphocyte Count 2.12 X10^3/uL (0.83-4.51); Absolute Neutrophil Count 4.2 X10^3/uL (2.0-7.7); Basophil# 0.04 X10^3/uL; Basophil% 0.6 % (0-1); Eosinophil# 0.15 X10^3/uL; Eosinophils% 2.1 % (0-5); Hematocrit 42.3 % (40-54); Hemoglobin 14.1 g/dL (13.0-16.5); Lymphocyte # 2.12 X10^3/ul (4.0); Lymphocyte % 29.2 % (19-41); Mean Corp Hgb Conc 33.3 g/dL (32-36); Mean Corpuscular Hgb 30.1 pg (27.0-32.0); Mean Corpuscular Volume 90.2 fL (80-94); Mean Platelet Vol. 8.8 fl (6.2-12.0); Monocyte# 0.78 X10^3/uL; Monocyte% 10.7 % (0-10); NRBC Flagged by Analyzer 0 % (0-5); Neutrophil # 4.17 X10^3/uL (2.7-7.7); Neutrophil % 57.3 % (47-70); Platelet Count 272 K/mm3 (150-450); RBC Distribution Width SD 46.5 fl (35.1-43.9); Red Blood Count 4.69 M/mm3 (4.6-6.2); White Blood Count 7.3 K/mm3 (4.4-11.0)
[2019-01-07 16:48] LABS: BUN 17 mg/dL (7-18); Creatinine, Serum 1.12 mg/dL (0.70-1.30); Erythrocyte Sedimentation Rate 2 mm/hr (0-20); Glucose 96 mg/dL (74-106)
[2019-01-07 16:49] LABS: Anion Gap 7 (5-15); BUN/Creat Ratio 15.2 RATIO (10-20); CRP < 2.90 mg/L (0.0-3.0); Calcium,Total 8.8 mg/dL (8.5-10.1); Chloride 111 mmol/L (98-107); EST Glomerular Filtration Rate 70 mL/min (>60); Est Glom Filt Rate - Afr Amer 84 mL/min (>60); Potassium 4.3 mmol/L (3.5-5.1); Sodium Level 144 mmol/L (136-145)
[2019-01-07 18:26] LABS: Source- Body Fluid SYNOVIAL; Viscosity / Synovial Fluid Mod. Viscous (HIGH)
[2019-01-07 18:27] LABS: Appearance /Synovial Fluid Turbid (CLEAR); Color / Synovial Fluid Red (Pale Yellow)
[2019-01-07 18:56] LABS: RBC /Synovial Fluid 3.888 10^6/uL (0); Synovial Fld Mononuclear WBC % 47.9 %; Synovial Fld Polynuclear WBC # 1.072 10^3/uL; Synovial Fld Polynuclear WBC % 52.1 %
[2019-01-07 19:13] LABS: AUTO B FLUID DILUENT BKGD CT WBC <0.1 RBC <0.01 (W<.1,R<.01); Body Fluid QC Type(s) BF4Q,BF5Q
[2019-01-07 20:58] LABS: Lymph 34 %; Monocyte /Synovial Fluid 17 %; Neutrophil 25 % (0-25)
[2019-01-07 20:59] LABS: Other Cell /Synovial Fluid 24 %
[2019-01-07 21:07] LABS: CRYSTALS, BODY FLUID Other, see comment
[2019-01-10 07:57] LABS: Pathologist Review Reviewed
== END | disposition home or self-care (01) ==
LOC: POLAB3 15:37 → RAD 15:50
PROVIDERS: Family Provider Family Medicine Geriatric Medicine; PCP Family Medicine Geriatric Medicine; Referring Provider Family Medicine Geriatric Medicine; Visit Provider Family Medicine Geriatric Medicine
DX: R79.9 Abnormal finding of blood chemistry, unspecified (principal); M71.50 Other bursitis, not elsewhere classified, unspecified site; M25.522 Pain in left elbow
CPT/HCPCS: 36415; 73070; 80048; 84550; 85025; 85652; 86140; 87070; 87075; 87205; 89050; 89051; 89060

== ENCOUNTER → 2019-01-18 | Outpatient (CLI) | payer MEDICARE, OTHER, SELFPAY ==
[2018-07-27 13:33] VITALS: BMI 27.7
[2018-10-13 01:03] VITALS: BMI 29.9
[2019-01-18 11:26] LABS: AST(SGOT) 18 U/L (15-37); Alanine Aminotransfer ALT/SGPT 42 U/L (16-61); Albumin, Serum 3.6 g/dL (3.2-5.0); Alkaline Phosphatase 66 U/L (45-117); Bilirubin, Direct 0.24 mg/dL (0.00-0.30); Cholesterol 162 mg/dL (200); Globulin 3.3 g/dL (2.2-4.2); High Density Lipoprotein 52 mg/dL; Protein, Total 6.9 g/dL (6.4-8.2); Triglycerides 100 mg/dL; Very Low Density Lipoprotein 20 mg/dL (5-40)
== END | disposition home or self-care (01) ==
LOC: LAB 09:02
PROVIDERS: Family Provider Family Medicine Geriatric Medicine; PCP Family Medicine Geriatric Medicine; Referring Provider Nurse Practitioner Family; Visit Provider Nurse Practitioner Family
DX: E78.00 Pure hypercholesterolemia, unspecified (principal)
CPT/HCPCS: 36415; 80061; 80076

== ENCOUNTER → 2020-01-07 | Outpatient (CLI) | payer MEDICARE, OTHER, SELFPAY ==
[2018-07-27 13:33] VITALS: BMI 27.7
[2019-08-26 15:07] VITALS: BMI 30.1
[2020-01-07 16:05] LABS: Absolute Lymphocyte Count 1.68 X10^3/uL (0.83-4.51); Absolute Neutrophil Count 5.7 X10^3/uL (2.0-7.7); Basophil# 0.03 X10^3/uL; Basophil% 0.4 % (0-1); Eosinophil# 0.09 X10^3/uL; Eosinophils% 1.1 % (0-5); Hematocrit 44.4 % (40-54); Hemoglobin 14.9 g/dL (13.0-16.5); Lymphocyte # 1.68 X10^3/ul (4.0); Lymphocyte % 20.7 % (19-41); Mean Corp Hgb Conc 33.6 g/dL (32-36); Mean Corpuscular Hgb 29.6 pg (27.0-32.0); Mean Corpuscular Volume 88.3 fL (80-94); Mean Platelet Vol. 8.9 fl (6.2-12.0); Monocyte# 0.64 X10^3/uL; Monocyte% 7.9 % (0-10); NRBC Flagged by Analyzer 0 % (0-5); Neutrophil # 5.65 X10^3/uL (2.7-7.7); Neutrophil % 69.7 % (47-70); Platelet Count 269 K/mm3 (150-450); RBC Distribution Width CV 13.1 % (11.6-14.6); RBC Distribution Width SD 42.4 fl (35.1-43.9); Red Blood Count 5.03 M/mm3 (4.6-6.2); White Blood Count 8.1 K/mm3 (4.4-11.0)
[2020-01-07 17:35] LABS: ALB/GLOB Ratio 1.4 RATIO (0.9-2.4); AST(SGOT) 21 U/L (15-37); Alanine Aminotransfer ALT/SGPT 33 U/L (16-61); Albumin, Serum 4.3 g/dL (3.2-5.0); Alkaline Phosphatase 72 U/L (45-117); Anion Gap 6 (5-15); BUN 16 mg/dL (7-18); Calcium,Total 9.8 mg/dL (8.5-10.1); Chloride 105 mmol/L (98-107); Creatinine, Serum 1.14 mg/dL (0.70-1.30); EST Glomerular Filtration Rate 68 mL/min (>60); Est Glom Filt Rate - Afr Amer 82 mL/min (>60); Globulin 3.1 g/dL (2.2-4.2); Glucose 94 mg/dL (74-106); PSA,Total - Annual Screen 1.55 ng/mL (0.00-4.00); Protein, Total 7.4 g/dL (6.4-8.2); Sodium Level 140 mmol/L (136-145); Thyroid Stim Hormone (TSH) 0.95 uIU/mL (0.358-3.74)
== END | disposition home or self-care (01) ==
LOC: POLAB3 15:31
PROVIDERS: PCP Family Medicine Geriatric Medicine; Visit Provider Family Medicine Geriatric Medicine
DX: E55.9 Vitamin D deficiency, unspecified (principal); I10 Essential (primary) hypertension; Z12.5 Encounter for screening for malignant neoplasm of prostate
CPT/HCPCS: 36415; 80053; 82306; 84153; 84443; 85025; G0103

== ENCOUNTER → 2020-08-12 14:50 | Outpatient (CLI) | payer MEDICARE, OTHER, SELFPAY ==
[2018-07-27 13:33] VITALS: BMI 27.7
[2020-03-23 09:03] VITALS: BMI 30.4
--- NOTE | 2020-08-12 14:55 | VDUE_ITS ---
Reason For Study: EDEMA Right Proximal Right jugular vein is spontaneous, widely patent, phasic, with no intraluminal echogenicity noted. Right subclavian vein is spontaneous, widely patent, phasic, with no intraluminal echogenicity noted. Right Lower Arm Right radial vein is compressible. Right ulnar vein is compressible. Right Arm Right axillary vein is spontaneous, patent, phasic, competent, compressible and demonstrates augmentation. Right brachial vein is compressible. Right cephalic vein is compressible. Right basilic vein is compressible. Nonvascular structure noted in the right medial forearm measuring 1.43 x 0.43 cm. VL/Venous Duplex US, Unilateral Interpretation Summary No evidence for acute deep venous thrombosis[right] upper extremity with patent and compressible cephalic and basilic veins. Right medial forearm 1.43 x 0.43 cm subfascial non- vascular structure, clinical correlation would be appropriate. Ordering Physician: Cliff Pardo Referring Physician: Cliff Pardo Chi Performed By: Mallika Chen, ROLLY, RVT ?
--- NOTE | 2020-08-12 15:23 | RAD_ITS ---
STUDY: X-RAY - RIGHT RADIUS AND ULNA REASON FOR EXAM: Male, 65 years old. PAIN IN RIGHT ARM TECHNIQUE: 2 view(s) of the forearm. COMPARISON: None. FINDINGS: There is no demonstrated soft tissue swelling. No fracture or dislocation. Normal visualized radius. Normal visualized ulna. There is marked radiocarpal joint space narrowing. RAD/Forearm 2 Views IMPRESSION: No fracture or dislocation. Marked radiocarpal joint space narrowing. Electronically Signed: Casey Lopez MD at 16:58 EDT Tel , Service support ,
== END ==
PROVIDERS: PCP Family Medicine Geriatric Medicine; Referring Provider Family Medicine Geriatric Medicine; Visit Provider Family Medicine Geriatric Medicine
DX: M79.601 Pain in right arm (principal); R60.0 Localized edema
CPT/HCPCS: 73090; 93971

== ENCOUNTER → 2021-01-15 11:54 | Outpatient (CLI) | payer MEDICARE, OTHER, SELFPAY ==
[2018-07-27 13:33] VITALS: BMI 27.7
--- NOTE | 2021-01-15 12:00 | RAD_ITS ---
INDICATION: DYSPNEA EXAMINATION/TECHNIQUE: X-RAY - XR Chest 2 Views COMPARISON: 07/09/2018. FINDINGS: LINES/DEVICES: Sternal wires are seen in position. Surgical clips visualized along the heart border. LUNGS: Bilateral hilar prominence, prominence of the bronchovascular interstitial lung markings is visualized no evidence of focal infiltrate or consolidation, subtle bilateral linear streaky subsegmental atelectatic changes are seen. No evidence of pneumothorax or pleural effusion is seen. MEDIASTINUM AND CARDIOVASCULAR STRUCTURES: Cardiac silhouette mildly enlarged in comparison to the prior study. Central airways and mediastinal contour are unremarkable. BONES AND SOFT TISSUES: Unremarkable. RAD/Chest PA and Lateral IMPRESSION: Mild congestive changes in comparison to the prior study would recommend clinical correlation congestive heart failure, differential diagnosis would include perihilar infiltrate/pneumonia. Electronically Signed: Nick Aj MD at 13:27 EDT Tel , Service support ,
[2021-01-15 15:00] LABS: Absolute Lymphocyte Count 1.06 X10^3/uL (0.83-4.51); Absolute Neutrophil Count 5.5 X10^3/uL (2.0-7.7); Basophil# 0.07 X10^3/uL; Eosinophil# 0.23 X10^3/uL; Eosinophils% 3.1 % (0-5); Hemoglobin 13.5 g/dL (13.0-16.5); Lymphocyte # 1.06 X10^3/ul (0.83-4.51); Lymphocyte % 14.4 % (19-41); Mean Corp Hgb Conc 32.1 g/dL (32-36); Mean Corpuscular Hgb 29.6 pg (27.0-32.0); Mean Corpuscular Volume 92.1 fL (80-94); Mean Platelet Vol. 9.3 fl (6.2-12.0); Monocyte# 0.44 X10^3/uL; NRBC Flagged by Analyzer 0 % (0-5); Neutrophil # 5.52 X10^3/uL (2.7-7.7); Neutrophil % 75.2 % (47-70); Platelet Count 308 K/mm3 (150-450); RBC Distribution Width CV 15.6 % (11.6-14.6); RBC Distribution Width SD 53.1 fl (35.1-43.9); Red Blood Count 4.56 M/mm3 (4.6-6.2); White Blood Count 7.3 K/mm3 (4.4-11.0)
[2021-01-15 15:02] LABS: Erythrocyte Sedimentation Rate 3 mm/hr (0-20)
[2021-01-15 15:18] LABS: CRP 7.25 mg/L (0.0-3.0)
[2021-01-15 15:21] LABS: BNP,B-Type NATRIURETIC PEPTIDE 1240.4 pg/mL (0-100)
== END ==
PROVIDERS: PCP Family Medicine Geriatric Medicine; Referring Provider Internal Medicine Pulmonary Disease; Visit Provider Internal Medicine Pulmonary Disease
DX: R06.00 Dyspnea, unspecified (principal)
CPT/HCPCS: 36415; 71046; 83880; 85025; 85652; 86140

== ENCOUNTER → 2021-05-05 10:13 | Outpatient (CLI) | payer MEDICARE, OTHER, SELFPAY ==
[2018-07-27 13:33] VITALS: BMI 27.7
[2021-05-05 12:30] LABS: Absolute Lymphocyte Count 1.83 X10^3/uL (0.83-4.51); Absolute Neutrophil Count 4.6 X10^3/uL (2.0-7.7); Basophil# 0.05 X10^3/uL; Basophil% 0.7 % (0-1); Eosinophil# 0.26 X10^3/uL; Eosinophils% 3.5 % (0-5); Hematocrit 45.1 % (40-54); Hemoglobin 15.2 g/dL (13.0-16.5); Lymphocyte # 1.83 X10^3/ul (0.83-4.51); Lymphocyte % 24.5 % (19-41); Mean Corp Hgb Conc 33.7 g/dL (32-36); Mean Corpuscular Hgb 29.5 pg (27.0-32.0); Mean Corpuscular Volume 87.6 fL (80-94); Mean Platelet Vol. 9.5 fl (6.2-12.0); Monocyte# 0.74 X10^3/uL; Monocyte% 9.9 % (0-10); NRBC Flagged by Analyzer 0 % (0-5); Neutrophil # 4.58 X10^3/uL (2.7-7.7); Neutrophil % 61.1 % (47-70); Platelet Count 291 K/mm3 (150-450); RBC Distribution Width CV 14.8 % (11.6-14.6); RBC Distribution Width SD 47.8 fl (35.1-43.9); Red Blood Count 5.15 M/mm3 (4.6-6.2); White Blood Count 7.5 K/mm3 (4.4-11.0)
[2021-05-05 12:47] LABS: Vitamin D,25 Hydroxy 68.6 ng/mL
[2021-05-05 13:00] LABS: ALB/GLOB Ratio 1.1 RATIO (0.9-2.4); AST(SGOT) 22 U/L (15-37); Alanine Aminotransfer ALT/SGPT 35 U/L (16-61); Albumin, Serum 4.1 g/dL (3.2-5.0); Alkaline Phosphatase 78 U/L (45-117); Anion Gap 10 (5-15); BUN 19 mg/dL (7-18); BUN/Creat Ratio 15.7 RATIO (10-20); Calcium,Total 9.2 mg/dL (8.5-10.1); Chloride 101 mmol/L (98-107); Creatinine, Serum 1.21 mg/dL (0.70-1.30); EST Glomerular Filtration Rate 63 mL/min (>60); Est Glom Filt Rate - Afr Amer 77 mL/min (>60); Globulin 3.9 g/dL (2.2-4.2); Glucose 107 mg/dL (74-106); PSA,Total - Annual Screen 1.68 ng/mL (0.00-4.00); Sodium Level 139 mmol/L (136-145); Thyroid Stim Hormone (TSH) 2.01 uIU/mL (0.358-3.74)
== END ==
PROVIDERS: PCP Family Medicine Geriatric Medicine; Visit Provider Family Medicine Geriatric Medicine
DX: E55.9 Vitamin D deficiency, unspecified (principal); R53.83 Other fatigue; Z12.5 Encounter for screening for malignant neoplasm of prostate
CPT/HCPCS: 36415; 80053; 82306; 84153; 84443; 85025; G0103

== ENCOUNTER → 2022-05-11 | Outpatient (CLI) | payer MEDICARE, OTHER, SELFPAY ==
[2018-07-27 13:33] VITALS: BMI 27.7
[2022-05-11 11:19] LABS: Absolute Lymphocyte Count 1.52 X10^3/uL (0.83-4.51); Absolute Neutrophil Count 5.9 X10^3/uL (2.0-7.7); Basophil# 0.06 X10^3/uL; Basophil% 0.7 % (0-1); Eosinophil# 0.25 X10^3/uL; Hematocrit 44.1 % (40-54); Hemoglobin 14.7 g/dL (13.0-16.5); Lymphocyte # 1.52 X10^3/ul (0.83-4.51); Lymphocyte % 18.1 % (19-41); Mean Corp Hgb Conc 33.3 g/dL (32-36); Mean Corpuscular Hgb 29.8 pg (27.0-32.0); Mean Corpuscular Volume 89.3 fL (80-94); Mean Platelet Vol. 9.2 fl (6.2-12.0); Monocyte# 0.68 X10^3/uL; Monocyte% 8.1 % (0-10); NRBC Flagged by Analyzer 0 % (0-5); Neutrophil # 5.88 X10^3/uL (2.7-7.7); Neutrophil % 69.9 % (47-70); Platelet Count 332 K/mm3 (150-450); RBC Distribution Width CV 14.1 % (11.6-14.6); RBC Distribution Width SD 46.4 fl (35.1-43.9); Red Blood Count 4.94 M/mm3 (4.6-6.2); White Blood Count 8.4 K/mm3 (4.4-11.0)
[2022-05-11 11:47] LABS: Vitamin D,25 Hydroxy 55.1 ng/mL
[2022-05-11 12:03] LABS: ALB/GLOB Ratio 1.4 RATIO (0.9-2.4); AST(SGOT) 18 U/L (15-37); Alanine Aminotransfer ALT/SGPT 26 U/L (16-61); Albumin, Serum 4.2 g/dL (3.2-5.0); Alkaline Phosphatase 82 U/L (45-117); Anion Gap 8 (5-15); BUN 19 mg/dL (7-18); BUN/Creat Ratio 14.7 RATIO (10-20); Calcium,Total 9.2 mg/dL (8.5-10.1); Chloride 104 mmol/L (98-107); Creatinine, Serum 1.29 mg/dL (0.70-1.30); EST Glomerular Filtration Rate 59 mL/min (>60); Est Glom Filt Rate - Afr Amer 71 mL/min (>60); Globulin 3.1 g/dL (2.2-4.2); Glucose 119 mg/dL (74-106); PSA,Total - Annual Screen 1.98 ng/mL (0.00-4.00); Potassium 4.3 mmol/L (3.5-5.1); Protein, Total 7.3 g/dL (6.4-8.2); Sodium Level 139 mmol/L (136-145); Thyroid Stim Hormone (TSH) 1.61 uIU/mL (0.358-3.74)
== END | disposition home or self-care (01) ==
LOC: POLAB3 09:13
PROVIDERS: PCP Family Medicine Geriatric Medicine; Visit Provider Family Medicine Geriatric Medicine
DX: I10 Essential (primary) hypertension (principal); E55.9 Vitamin D deficiency, unspecified; Z12.5 Encounter for screening for malignant neoplasm of prostate
CPT/HCPCS: 36415; 80053; 82306; 84153; 84443; 85025; G0103

== ENCOUNTER → 2023-07-05 | Outpatient (CLI) | payer MEDICARE, OTHER, SELFPAY ==
[2018-07-27 13:33] VITALS: BMI 27.7
[2023-07-05 10:54] LABS: Absolute Lymphocyte Count 0.81 X10^3/uL (0.83-4.51); Absolute Neutrophil Count 5.8 X10^3/uL (2.0-7.7); Basophil% 1.3 % (0-1); Eosinophil# 0.58 X10^3/uL; Eosinophils% 7.4 % (0-5); Hematocrit 44.2 % (40-54); Hemoglobin 14.1 g/dL (13.0-16.5); Lymphocyte # 0.81 X10^3/ul (0.83-4.51); Lymphocyte % 10.4 % (19-41); Mean Corp Hgb Conc 31.9 g/dL (32-36); Mean Corpuscular Hgb 30.6 pg (27.0-32.0); Mean Corpuscular Volume 95.9 fL (80-94); Mean Platelet Vol. 9.3 fl (6.2-12.0); Monocyte# 0.52 X10^3/uL; Monocyte% 6.7 % (0-10); NRBC Flagged by Analyzer 0 % (0-5); Neutrophil # 5.75 X10^3/uL (2.7-7.7); Neutrophil % 73.8 % (47-70); Platelet Count 312 K/mm3 (150-450); RBC Distribution Width SD 53.2 fl (35.1-43.9); Red Blood Count 4.61 M/mm3 (4.6-6.2); White Blood Count 7.8 K/mm3 (4.4-11.0)
[2023-07-05 11:09] LABS: Vitamin D,25 Hydroxy 73.7 ng/mL
[2023-07-05 11:13] LABS: ALB/GLOB Ratio 0.8 RATIO (0.9-2.4); AST(SGOT) 27 U/L (15-37); Alanine Aminotransfer ALT/SGPT 32 U/L (16-61); Albumin, Serum 2.9 g/dL (3.2-5.0); Alkaline Phosphatase 119 U/L (45-117); Anion Gap 4 (5-15); BUN 17 mg/dL (7-18); BUN/Creat Ratio 13.4 RATIO (10-20); Calcium,Total 8.8 mg/dL (8.5-10.1); Chloride 107 mmol/L (98-107); Cholesterol 131 mg/dL (200); Creatinine, Serum 1.27 mg/dL (0.70-1.30); EST Glomerular Filtration Rate 60 mL/min (>60); Est Glom Filt Rate - Afr Amer 72 mL/min (>60); Globulin 3.8 g/dL (2.2-4.2); Glucose 131 mg/dL (74-106); High Density Lipoprotein 27 mg/dL; PSA,Total - Annual Screen 2.71 ng/mL (0.00-4.00); Potassium 4.1 mmol/L (3.5-5.1); Protein, Total 6.7 g/dL (6.4-8.2); Sodium Level 139 mmol/L (136-145); Thyroid Stim Hormone (TSH) 0.99 uIU/mL (0.358-3.74); Triglycerides 67 mg/dL; Very Low Density Lipoprotein 13 mg/dL (5-40)
== END | disposition home or self-care (01) ==
LOC: POLAB3 10:05
PROVIDERS: PCP Family Medicine Geriatric Medicine; Visit Provider Family Medicine Geriatric Medicine
DX: Z12.5 Encounter for screening for malignant neoplasm of prostate (principal); I10 Essential (primary) hypertension; E55.9 Vitamin D deficiency, unspecified; E78.5 Hyperlipidemia, unspecified
CPT/HCPCS: 36415; 80053; 80061; 82306; 84153; 84443; 85025; G0103

== ENCOUNTER → 2023-07-13 | Outpatient (CLI) | payer MEDICARE, OTHER, SELFPAY ==
[2018-07-27 13:33] VITALS: BMI 27.7
[2023-07-13 12:08] LABS: Hemoglobin A1c 6.4 % (3.8-5.6)
--- OUTSIDE RECORDS SUMMARY | 2023-07-13 18:03 | XMS RPT_ITS | CCD ---
Author Name Unknown Address [id number] [place] [address] Organization [facility] Care Team Providers Care Senior Market Intelligence Consultant Name Role Phone FABIAN KNIGHT Unavailable Unavailable RANDALL TAYLOR Unavailable Unavailable Problems Problem Classification Problem Date Documented Da te Episodic/Chronic Unclassified (2 sources) Encounter for screening for malignant neoplasm of colon; Translations: [Encounter for screening for malignant neoplasm of colon] Onset: 06-29-2017 Episodic Results Test Name Value Interpretation Reference Range Facil ity Encounters Encounter Date Encounter Type Care Provider Facility Start: 06-29-2017 End: 07-04-2017 Ambulatory FABIAN KNIGHT Facility:[facility] Payers Date Payer Category Payer Unknown [id number] Summary Purpose Family History No Family History Records Found Advance Directives No Advanced Directives Records Found Additional Source Comments (unrecognized sect ion and content) No Status Records Found INFORMATION SOURCE (unrecogn ized section and content) FOR RECORDS PERTAINING TO PATIENTS WHO ARE OR HAVE BEEN ENROLLED IN A CHEMICAL DEPENDENCY/SUBSTANCEABUSE PROGRAM, SOME INFORMATION MAY BE OMITTED. This clinical summary was aggregated from multiple sources. Caution should be exercised in using it in the provision of clinical care. This summary normalizes information from multiple sources, and as a consequence, information in this document may materially change the coding, format and clinical context of patient data. In addition, data may be omitted in some cases. CLINICAL DECISIONS SHOULD BE BASED ON THE PRIMARY CLINICAL RECORDS. [employer] provides no warranty or guarantee of the accuracy or completeness of information in this document.
== END | disposition home or self-care (01) ==
LOC: POLAB3 11:07
PROVIDERS: PCP Family Medicine Geriatric Medicine; Visit Provider Family Medicine Geriatric Medicine
DX: E11.65 Type 2 diabetes mellitus with hyperglycemia (principal); E78.5 Hyperlipidemia, unspecified; R53.83 Other fatigue
CPT/HCPCS: 36415; 83036

== ENCOUNTER → 2023-08-08 | Outpatient (CLI) | payer MEDICARE, OTHER, SELFPAY ==
[2018-07-27 13:33] VITALS: BMI 27.7
[2023-08-08 12:58] LABS: ALB/GLOB Ratio 0.9 RATIO (0.9-2.4); AST(SGOT) 21 U/L (15-37); Alanine Aminotransfer ALT/SGPT 24 U/L (16-61); Albumin, Serum 3.4 g/dL (3.2-5.0); Alkaline Phosphatase 138 U/L (45-117); Anion Gap 9 (5-15); BUN 25 mg/dL (7-18); BUN/Creat Ratio 20.8 RATIO (10-20); Calcium,Total 8.9 mg/dL (8.5-10.1); Chloride 108 mmol/L (98-107); EST Glomerular Filtration Rate 64 mL/min (>60); Est Glom Filt Rate - Afr Amer 77 mL/min (>60); Globulin 3.7 g/dL (2.2-4.2); Glucose 107 mg/dL (74-106); Potassium 4.2 mmol/L (3.5-5.1); Protein, Total 7.1 g/dL (6.4-8.2); Sodium Level 141 mmol/L (136-145)
== END | disposition home or self-care (01) ==
LOC: POLAB3 11:28
PROVIDERS: PCP Family Medicine Geriatric Medicine; Visit Provider Family Medicine Geriatric Medicine
DX: E78.5 Hyperlipidemia, unspecified (principal); R53.83 Other fatigue
CPT/HCPCS: 36415; 80053

== ENCOUNTER → 2023-12-21 | Outpatient (CLI) | payer MEDICARE, OTHER, SELFPAY ==
[2018-07-27 13:33] VITALS: BMI 27.7
[2023-12-21 12:06] LABS: ALB/GLOB Ratio 0.8 RATIO (0.9-2.4); AST(SGOT) 25 U/L (15-37); Alanine Aminotransfer ALT/SGPT 16 U/L (16-61); Albumin, Serum 3.4 g/dL (3.2-5.0); Alkaline Phosphatase 122 U/L (45-117); Anion Gap 6 (5-15); BUN 16 mg/dL (7-18); BUN/Creat Ratio 14.7 RATIO (10-20); Calcium,Total 8.9 mg/dL (8.5-10.1); Chloride 108 mmol/L (98-107); Creatinine, Serum 1.09 mg/dL (0.70-1.30); EST Glomerular Filtration Rate 71 mL/min (>60); Est Glom Filt Rate - Afr Amer 86 mL/min (>60); Globulin 4.1 g/dL (2.2-4.2); Glucose 103 mg/dL (74-106); Protein, Total 7.5 g/dL (6.4-8.2); Sodium Level 141 mmol/L (136-145)
== END | disposition home or self-care (01) ==
LOC: POLAB3 11:06
PROVIDERS: PCP Family Medicine Geriatric Medicine; Visit Provider Family Medicine Geriatric Medicine
DX: I10 Essential (primary) hypertension (principal)
CPT/HCPCS: 36415; 80053

== ENCOUNTER → 2024-02-19 | Outpatient (CLI) | payer MEDICARE, OTHER, SELFPAY ==
[2018-07-27 13:33] VITALS: BMI 27.7
[2024-02-19 12:28] LABS: Absolute Lymphocyte Count 0.84 X10^3/uL (0.83-4.51); Absolute Neutrophil Count 4.7 X10^3/uL (2.0-7.7); Basophil# 0.06 X10^3/uL; Eosinophil# 0.08 X10^3/uL; Eosinophils% 1.3 % (0-5); Hematocrit 42.9 % (40-54); Hemoglobin 13.6 g/dL (13.0-16.5); Lymphocyte # 0.84 X10^3/ul (0.83-4.51); Lymphocyte % 13.9 % (19-41); Mean Corp Hgb Conc 31.7 g/dL (32-36); Mean Corpuscular Volume 97.7 fL (80-94); Mean Platelet Vol. 8.7 fl (6.2-12.0); Monocyte# 0.41 X10^3/uL; Monocyte% 6.8 % (0-10); NRBC Flagged by Analyzer 0 % (0-5); Neutrophil # 4.65 X10^3/uL (2.7-7.7); Neutrophil % 76.7 % (47-70); Platelet Count 391 K/mm3 (150-450); RBC Distribution Width CV 15.1 % (11.6-14.6); RBC Distribution Width SD 54.5 fl (35.1-43.9); Red Blood Count 4.39 M/mm3 (4.6-6.2); White Blood Count 6.1 K/mm3 (4.4-11.0)
[2024-02-19 12:53] LABS: BNP,B-Type NATRIURETIC PEPTIDE 1839.4 pg/mL (0-100)
[2024-02-19 13:17] LABS: ALB/GLOB Ratio 0.8 RATIO (0.9-2.4); AST(SGOT) 128 U/L (15-37); Alanine Aminotransfer ALT/SGPT 75 U/L (16-61); Albumin, Serum 3.5 g/dL (3.2-5.0); Alkaline Phosphatase 93 U/L (45-117); Anion Gap 11 (5-15); BUN 28 mg/dL (7-18); BUN/Creat Ratio 17.2 RATIO (10-20); Calcium,Total 10.1 mg/dL (8.5-10.1); Chloride 103 mmol/L (98-107); Creatinine, Serum 1.63 mg/dL (0.70-1.30); EST Glomerular Filtration Rate 45 mL/min (>60); Est Glom Filt Rate - Afr Amer 54 mL/min (>60); Globulin 4.2 g/dL (2.2-4.2); Glucose 134 mg/dL (74-106); Potassium 4.5 mmol/L (3.5-5.1); Protein, Total 7.7 g/dL (6.4-8.2); Sodium Level 135 mmol/L (136-145)
== END | disposition home or self-care (01) ==
LOC: LAB 11:52
PROVIDERS: PCP Family Medicine Geriatric Medicine; Referring Provider Internal Medicine Cardiovascular Disease; Visit Provider Internal Medicine Cardiovascular Disease
DX: K76.0 Fatty (change of) liver, not elsewhere classified (principal); R18.8 Other ascites; R06.02 Shortness of breath; R53.83 Other fatigue
CPT/HCPCS: 36415; 80053; 83880; 84443; 85025

== ENCOUNTER 2024-02-20 11:42 | Inpatient (IN) | payer MEDICARE, OTHER, SELFPAY ==
[2018-07-27 13:33] VITALS: BMI 27.7
[2024-02-20] VITALS (21 sets, daily range): BP systolic 93–145; BP diastolic 66–100; PULSE 96–121; RESP 14–20; TEMP 36.2–36.9; O2SAT 94–99; BMI 28.8; BMI 28.0
--- NOTE | 2024-02-20 12:34 | EKG12_ITS ---
Test Reason : Blood Pressure : / mmHG Vent. Rate : 121 BPM Atrial Rate : 242 BPM P-R Int : 000 ms QRS Dur : 122 ms QT Int : 350 ms P-R-T Axes : 000 094 -66 degrees QTc Int : 497 ms ATRIAL FLUTTER WITH 2:1 AV BLOCK WITH PREMATURE VENTRICULAR OR ABERRANTLY CONDUCTED COMPLEXES Rightward axis Non-specific intra-ventricular conduction delay Nonspecific ST and T wave abnormality Abnormal ECG Confirmed by EMILY GUY, DAYANA ([id number]), mapping editor PADMINI MEDINA ([id number]) on 02/21/2024 9:23:34 AM Referred By: Confirmed By:DAYANA DIAZ MD
--- NOTE | 2024-02-20 12:34 | RAD_ITS ---
STUDY: X-RAY CHEST REASON FOR EXAM: Male, 69 years old. Dyspnea. TECHNIQUE: Single AP portable view of the chest. COMPARISON: Comparison is made with prior study dated January 15, 2021. FINDINGS: EKG electrodes are seen. Mild degree of vascular congestion and early CHF. There is no demonstrated pleural abnormality. Sternal cerclage wires and vascular clips are present from a prior sternotomy and coronary artery bypass graft procedure (CABG). Cardiomegaly. Normal mediastinum and shaista. Normal visualized pulmonary arteries. There is atherosclerotic tortuosity of the aortic arch and descending thoracic aorta. Normal visualized thoracic spine. Normal visualized ribs, clavicles, and shoulders. There is no demonstrated abnormality of the visualized soft tissue structures of the upper abdomen. RAD/Chest 1 View (Portable) IMPRESSION: Cardiomegaly. Prior CABG. Less congestion and mild degree of CHF. Electronically Signed: Gerber Jovel MD at 14:24 EDT ,
--- NOTE | 2024-02-20 12:34 | CT_ITS ---
STUDY: CT ABDOMEN AND PELVIS WITH CONTRAST REASON FOR EXAM: Male, 69 years old. Ascites and elevated liver enzymes. CHEN RADIATION DOSAGE (If Supplied By Facility): CTDIvol = ( 17.64 ) mGy, DLP = ( 1198.63 ) mGycm TECHNIQUE: Transaxial images were obtained from the dome of the diaphragm to the symphysis pubis without oral contrast. IV 100mL Isovue-300 was administered. Sagittal and coronal images were reconstructed. Individualized dose optimization techniques were used for this CT. COMPARISON: None. FINDINGS: Small right pleural effusion with right basilar compressive atelectasis. Coronary artery calcification. Diffuse ascites. There is a diffuse contour abnormality of the liver consistent with cirrhotic changes. There are multiple gallstones. Normal spleen. Normal pancreas. Normal bilateral adrenal glands. Normal right kidney. Normal left kidney. Normal visualized stomach. Normal small intestine. There are multiple colonic diverticula consistent with diverticulosis. The appendix is visualized and appears normal. There is diffuse atherosclerotic calcification of the abdominal aorta, without a demonstrated aneurysm. Normal inferior vena cava. Normal retroperitoneum. Normal urinary bladder. Fluid is seen within the pelvis. Normal abdominal wall. There are diffuse degenerative changes of the visualized lumbar spine. Straightening of the normal lumbar lordosis. CT/Abdomen/Pelvis W IV Cont ONLY IMPRESSION: Diffuse ascites. Multiple gallstones. Findings suggestive of liver cirrhosis of the liver. Electronically Signed: Gerber Jovel MD at 13:41 EDT ,
--- NOTE | 2024-02-20 12:36 | EDS_ITS ---
HPI History of Present Illness Chief Complaint: Shortness of Breath Informant: patient Onset/Context/Timing Onset: Weeks Context: gradual Timing: Intermittent Quality: Positive for Dyspnea on exertion Current Severity: Mild Maximum Severity: Mild Worsened by: Exertion Associated Symptoms Negative for cough Chest Pain: Positive for None Narrative Narrative: 69-year-old male history of prior CABG triple-vessel 2016. History of CHF, CAD with a stent. Recently the last 2 months he developed abdominal swelling, ascites and increasing lower extremity edema. He has been on Lasix he said it used to work for CHF at bedside to be working as well now. He is having exertional shortness of breath but denies any chest pain. Denies vomiting or diarrhea. No melena. PE Risk Factors: Negative for Cancer, OCP + Smoking + > 35, Prior DVT or PE, Recent immobilization, Recent surgery or Recent travel Prior similar symptoms: Yes Recent Illness/Hospitalization: No PFSH PFS Medical History Pure hypercholesterolemia Essential hypertension Atherosclerosis of coronary artery bypass graft without angina pectoris Non-ST elevation (NSTEMI) myocardial infarction White coat syndrome with hypertension RBBB Premature ventricular contraction Nonrheumatic aortic valve insufficiency Atherosclerosis of coronary artery of [place] heart without angina pectoris Non-alcoholic fatty liver disease Home Medications ?Medication ?Instructions ?Recorded ?Last Taken ?Type aspirin 81 mg tablet,delayed 81 mg PO DAILY heart health 05/24/17 02/20/24 History release (Adult Aspirin Regimen) furosemide 40 mg tablet 40 mg PO DAILY edema 02/20/24 02/20/24 History Allergy/AdvReac Type Severity Reaction Status Date / Time pravastatin sodium (From Allergy Unknown Verified 02/20/24 11:44 Pravachol) carvedilol (From Coreg) AdvReac Intermediate diarrhea Verified 02/20/24 11:44 atorvastatin calcium (From AdvReac Pain in Verified 02/20/24 11:44 Lipitor) joints gemfibrozil AdvReac myalgia Verified 02/20/24 11:44 Family History Mother CAD (coronary artery disease) Surgical History History of esophagogastroduodenoscopy (EGD) (~2014) H/O coronary artery bypass surgery (~08/12/15) Social History Smoking Status: Never smoker alcohol intake: current details: rare substance use type: does not use ROS ROS ED ROS Narrative Exertional dyspnea. Abdominal ascites. Lower extremity edema. Constitutional Constitutional ED: Denies chills or fever(s) Eyes Eyes: Denies blurry vision ENT ENT ED: Denies ear pain Cardiovascular Cardiovascular: Denies chest pain Respiratory/Chest Respiratory/Chest: Reports dyspnea and dyspnea on exertion; Denies cough Gastrointestinal Gastrointestinal: Denies abdominal pain, diarrhea, nausea or vomiting Genitourinary Genitourinary ED: Denies dysuria or hematuria Musculoskeletal Musculoskeletal: Denies arthralgias Integumentary Denies abscess Neurologic Neurologic: Denies headache(s) Psychiatric Psychiatric: Denies anxiety Endocrine Endocrinology: Denies cold intolerance Hematologic/Lymphatic Hematologic/Lymphatic: Denies easy bleeding Allergic/Immunologic Allergic/Immunologic ED: Denies mouth swelling EXAM Physical Exam Narrative Exam Narrative: 69-year-old male vital signs are stable he is tachycardic. her significant other at bedside. H EENT exam unremarkable. Mild scleral icterus. Neck is nontender. Lungs clear to auscultation bilaterally. Heart tachycardic no murmur. Rate about 120. Abdomen distended with ascites. No significant tenderness. Moving all 4 extremities. 2+ pitting edema both lower extremities. Equal symmetrical. Calves are nontender. He is awake and alert. No focal motor deficits. Const Vital Signs: 02/20/24 11:42 02/20/24 11:52 02/20/24 12:44 Temperature 97.5 F L 98.1 F Temperature Source Oral Oral Pulse Rate 121 H 108 H Respiratory Rate 16 19 H Blood Pressure 136/92 H 138/87 H Blood Pressure Mean 106 104 Pulse Ox 97 97 Oxygen Delivery Method Room Air Room Air Room Air 02/20/24 13:02 Temperature 98.1 F Temperature Source Pulse Rate 109 H Respiratory Rate 19 H Blood Pressure 138/87 H Blood Pressure Mean 104 Pulse Ox 98 Oxygen Delivery Method Positive well nourished and well developed; Negative for cachectic, contractures or unkempt General Appearance ED: well developed and NAD; Negative for unkempt, cachectic, contractures or pallor Nutritional Appearance: Negative for cachectic HEENT Reports moist mucous membranes atraumatic; Negative for trauma or tenderness Eyes PERRL and EOMs intact bilaterally General Eye ED: Yes scleral icterus Neck no lymphadenopathy, supple, no meningeal signs and no JVD General: Negative for tenderness Lymph Lymphatic: Negative for other Chest Wall Chest: Negative for other Resp normal respiratory effort and clear to auscultation bilaterally Effort and Inspection: Negative for pain with movement Auscultation: Negative for rales, rhonchi or wheezes Cardio regular rhythm, S1 normal heart sound, S2 normal heart sound and no murmurs; Negative for regular rate Rate: tachycardic GI non-tender and no masses; Negative for non-distended GI Narrative: Abdominal ascites. Distended. Palpation: soft; Negative for tender or guarding Rectal Exam: Negative for normal sphincter tone Back/Spine no CVA tenderness and normal to inspection General Back: Negative for CVA tenderness Extremity Negative for normal to inspection Extremity Narrative: Bilateral peripheral pitting edema 1-2+. General Extremety ED: Yes edema; Negative for tenderness General Extremity: edema Neuro oriented x3 and CN's II-XII intact bilaterally Sensorium / Orientation: alert, oriented to person, oriented to place and oriented to time; Negative for orientation impaired, confused, lethargic or stuporous Motor Exam: strength 5/5 throughout Psych mental status grossly normal Appearance: Negative for unkempt Attitude: No agitated Mood & Affect: Negative for depressed, anxious or tearful Thought Process: normal thought process Skin no wounds General Skin Exam: Negative for pallor Lesions: no lesions Rashes: no rashes Trauma: Negative for abrasion or laceration MDM MDM MDM Narrative Medical decision making narrative: 69-year-old male with abdominal ascites, mild scleral icterus and bilateral peripheral edema. This could all be secondary to CHF he could have. Also acute liver failure. Labs and imaging are being obtained. He has had recent labs showing elevation of his liver enzymes. Repeat exam at 2 PM no significant change. Patient appears to have atrial flutter with tachycardia. He has got most likely a combination of CHF and liver cirrhosis. He also has an elevated troponin of 1800 that will need further evaluation we do not have any old troponins available for comparison. This may be chronic from a dilated cardiomyopathy versus acute. I have the hospitalist on page for admission. I have discussed the patient's test results with him. Patient be given IV Cardizem to try to slow down his heart rate. History & Record Review Discussion w/independent historian: Patient and Significant other Additional record(s) reviewed:: Prior inpatient record, Prior outpatient record, Prior ED visit and Prior labs Lab Data Attestation: I reviewed the patient's lab results. Lab results narrative: CBC shows a white count of 7. H&H 13 and 43. Platelets 402. PT/INR 18 and 1.5. PTT 31. Electrolytes shows sodium of 137. Gap 12. BUN of 32 creatinine 1.72. Liver enzymes are elevated at total bilirubin 2.8. AST 151. ALT 120. Alk phos is normal at 102. Troponin is elevated at 1838. Lipase is 32. Labs: Laboratory Results - last 24 hr 02/20/24 11:55 WBC 7.0 RBC 4.47 L Hgb 13.7 Hct 43.2 MCV 96.6 H MCH 30.6 MCHC 31.7 L RDW Std Deviation 54.2 H RDW Coeff of Omari 15.4 H Plt Count 402 MPV 9.1 Immature Gran % (Auto) 0.400 Neut % (Auto) 78.5 H Lymph % (Auto) 12.1 L [place] % (Auto) 7.1 Eos % (Auto) 1.0 Baso % (Auto) 0.9 Absolute Neuts (auto) 5.5 Absolute Lymphs (auto) 0.85 Nucleated RBC % 0 PT 18.3 H INR 1.5 APTT 31.6 Sodium 137 Potassium 4.2 Chloride 103 Carbon Dioxide 22.0 Anion Gap 12 BUN 32 H Creatinine 1.72 H Estim Creat Clear Calc 47.38 Est GFR (MDRD) Af Amer 51 L Est GFR (MDRD) Non-Af 42 L BUN/Creatinine Ratio 18.6 Glucose 130 H Calcium 9.7 Total Bilirubin 2.80 H AST 151 H ALT 120 H Alkaline Phosphatase 102 Troponin I High Sens 1838 H* Total Protein 7.4 Albumin 3.5 Globulin 3.9 Albumin/Globulin Ratio 0.9 Lipase 32 Radiography Chest X-Ray - ED: 1 View, Read by ED Physician, Lungs, Mediastinum, Bony Structures, No Acute Disease, Chronic Changes and Cardiomegaly Diagnostic Testing: Clinical Impression(s) from Imaging Studies Abdomen/Pelvis CT 02/20/24 12:34 IMPRESSION: Diffuse ascites. Multiple gallstones. Findings suggestive of liver cirrhosis of the liver. Electronically Signed: Gerber Jovel MD at 13:41 EDT , Chest x-ray, portable, single view shows a prior sternotomy. Dilated cardiomyopathy. Otherwise no acute process. Chronic changes. Interpreted by myself. Rhythm Strip Rhythm Strip: Atrial flutter Rate: 121 EKG Initial EKG: Attestation: I personally reviewed and interpreted this EKG as follows: Interpretation: No Acute Injury Pattern and Atrial Flutter Comments: Atrial flutter rate of 121. Critical Care Time Critical Care Time: Yes Critical care time (excluding procedures): 30-74 minutes, Including time spent:, Discussing w/Patient &/or Family/Manager Of Product, Discussing w/Consultants, Arranging Admission or Transfer, Performing Direct Patient Care at Bedside and - (35 min) Discharge Plan Dx/Rx/DC Orders Clinical Impression: Atrial flutter, Cirrhosis of liver, Edema, peripheral, CHF (congestive heart failure), Dilated cardiomyopathy, Elevated troponin, Exertional dyspnea, Acute kidney injury Disposition Disposition: Acute Care Hospital [facility]
[2024-02-20 12:54] LABS: Absolute Lymphocyte Count 0.85 X10^3/uL (0.83-4.51); Absolute Neutrophil Count 5.5 X10^3/uL (2.0-7.7); Basophil# 0.06 X10^3/uL; Basophil% 0.9 % (0-1); Eosinophil# 0.07 X10^3/uL; Hematocrit 43.2 % (40-54); Hemoglobin 13.7 g/dL (13.0-16.5); Lymphocyte # 0.85 X10^3/ul (0.83-4.51); Lymphocyte % 12.1 % (19-41); Mean Corp Hgb Conc 31.7 g/dL (32-36); Mean Corpuscular Hgb 30.6 pg (27.0-32.0); Mean Corpuscular Volume 96.6 fL (80-94); Mean Platelet Vol. 9.1 fl (6.2-12.0); Monocyte% 7.1 % (0-10); NRBC Flagged by Analyzer 0 % (0-5); Neutrophil # 5.51 X10^3/uL (2.7-7.7); Neutrophil % 78.5 % (47-70); Platelet Count 402 K/mm3 (150-450); RBC Distribution Width CV 15.4 % (11.6-14.6); RBC Distribution Width SD 54.2 fl (35.1-43.9); Red Blood Count 4.47 M/mm3 (4.6-6.2)
[2024-02-20 13:15] LABS: ALB/GLOB Ratio 0.9 RATIO (0.9-2.4); AST(SGOT) 151 U/L (15-37); Alanine Aminotransfer ALT/SGPT 120 U/L (16-61); Albumin, Serum 3.5 g/dL (3.2-5.0); Alkaline Phosphatase 102 U/L (45-117); Anion Gap 12 (5-15); BUN 32 mg/dL (7-18); BUN/Creat Ratio 18.6 RATIO (10-20); Calcium,Total 9.7 mg/dL (8.5-10.1); Chloride 103 mmol/L (98-107); Creatinine, Serum 1.72 mg/dL (0.70-1.30); EST Glomerular Filtration Rate 42 mL/min (>60); Est Glom Filt Rate - Afr Amer 51 mL/min (>60); Estimated Creatinine Clearance 47.38 ml/min; Globulin 3.9 g/dL (2.2-4.2); Glucose 130 mg/dL (74-106); Lipase 32 U/L (13-75); Potassium 4.2 mmol/L (3.5-5.1); Protein, Total 7.4 g/dL (6.4-8.2); Sodium Level 137 mmol/L (136-145); Troponin-I HS 1838 pg/mL (3.0-78.0)
[2024-02-20 13:18] LABS: International Normalized Ratio 1.5; Prothrombin Time (Protime)PT. 18.3 SECONDS (11.7-14.9)
[2024-02-20 13:19] LABS: Partial Thromboplast Time 31.6 Seconds (24.1-36.2)
--- NOTE | 2024-02-20 14:08 | HP.PCM.HOS_ITS ---
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 Associated with his symptoms is distention of his belly and shortness of breath. He has swelling of his bilateral lower legs. He saw the [facility] and was noted to have elevated TSH. Subsequently he was sent to his PCP for further workup. His PCP recommended that patient come to the emergency department for further evaluation. Because of elevated bilirubin patient was supposed to see electrical and instrument engineer, Dr. Carroll on 02/22/2024. At the emergency department patient was found to be in atrial a flutter. He was given Cardizem IV bolus. Also his troponin was severely elevated. [facility] Medical History Kidney stones Non-smoker Coronary artery disease Hypertension Pure hypercholesterolemia Essential hypertension Atherosclerosis of coronary artery bypass graft without angina pectoris Non-ST elevation (NSTEMI) myocardial infarction White coat syndrome with hypertension RBBB Premature ventricular contraction Nonrheumatic aortic valve insufficiency Atherosclerosis of coronary artery of [place] heart without angina pectoris Non-alcoholic fatty liver disease Home Medications ?Medication ?Instructions ?Recorded ?Last Taken ?Type aspirin 81 mg tablet,delayed 81 mg PO DAILY heart health 05/24/17 02/20/24 History release (Adult Aspirin Regimen) furosemide 40 mg tablet 40 mg PO DAILY edema 02/20/24 02/20/24 History Allergy/AdvReac Type Severity Reaction Status Date / Time pravastatin sodium (From Allergy Unknown Verified 02/20/24 11:44 Pravachol) carvedilol (From Coreg) AdvReac Intermediate diarrhea Verified 02/20/24 11:44 atorvastatin calcium (From AdvReac Pain in Verified 02/20/24 11:44 Lipitor) joints gemfibrozil AdvReac myalgia Verified 02/20/24 11:44 Family History Mother CAD (coronary artery disease) Surgical History History of coronary artery stent placement History of esophagogastroduodenoscopy (EGD) (~2014) H/O coronary artery bypass surgery (~08/12/15) Social History Smoking Status: Never smoker alcohol intake: current details: rare substance use type: does not use ROS ROS Narrative Pertinent positives and pertinent negatives as noted in HPI. All other systems were reviewed and are negative Vital Signs Vital Signs Vital Signs: 02/20/24 11:42 02/20/24 11:52 02/20/24 12:44 Temperature 97.5 F L 98.1 F Temperature Source Oral Oral Pulse Rate 121 H 108 H Respiratory Rate 16 19 H Blood Pressure 136/92 H 138/87 H Blood Pressure Mean 106 104 Pulse Ox 97 97 Oxygen Delivery Method Room Air Room Air Room Air 02/20/24 13:02 Temperature 98.1 F Temperature Source Pulse Rate 109 H Respiratory Rate 19 H Blood Pressure 138/87 H Blood Pressure Mean 104 Pulse Ox 98 Oxygen Delivery Method Weight Weight: 96.2 kg Body Mass Index (BMI) 28.8 Physical Exam Narrative Physical exam: General: Well-nourished, well-developed. Head: Normocephalic, atraumatic, no tenderness Eyes: Mild scleral icterus. Vision is grossly intact. EOMI ENT, no trauma, moist mucous membranes, no rhinorrhea Neck: Nontender, No thyromegaly. CVS: Tachycardia. JVD present. S1-S2 present. Respiratory : clear to auscultation bilaterally, chest wall nontender Abdomen: Soft, nontender, distended abdomen. : Deferred Back: Nontender, no CVA tenderness, no midline spinal tenderness, deformities, step-offs Extremities: Bilateral lower legs and feet edema, 3+. Skin: Normal color, no trauma, abrasions Neuro: Alert, oriented, cranial nerves II through XII grossly intact. Psychiatry: Normal mood. Normal affect. Not depressed. Not anxious. Results Lab / Micro Data 02/20/24 11:55 02/20/24 11:55 Labs: Laboratory Results - last 24 hr 02/20/24 11:55: WBC 7.0, RBC 4.47 L, Hgb 13.7, Hct 43.2, MCV 96.6 H, MCH 30.6, M CHC 31.7 L, RDW Std Deviation 54.2 H, RDW Coeff of Omari 15.4 H, Plt Count 402, MPV 9.1, Immature Gran % (Auto) 0.400, Neut % (Auto) 78.5 H, Lymph % (Auto) 12.1 L, [place] % (Auto) 7.1, Eos % (Auto) 1.0, Baso % (Auto) 0.9, Absolute Neuts (auto) 5.5, Absolute Lymphs (auto) 0.85, Nucleated RBC % 0, PT 18.3 H, INR 1.5, APTT 31.6, Sodium 137, Potassium 4.2, Chloride 103, Carbon Dioxide 22.0, Anion Gap 12, BUN 32 H, Creatinine 1.72 H, Estim Creat Clear Calc 47.38, Est GFR (MDRD) Af Amer 51 L, Est GFR (MDRD) Non-Af 42 L, BUN/Creatinine Ratio 18.6, Glucose 130 H, Calcium 9.7, Total Bilirubin 2.80 H, AST 151 H, ALT 120 H, Alkaline Phosphatase 102, Troponin I High Sens 1838 H*, Total Protein 7.4, Albumin 3.5, Globulin 3.9, Albumin/Globulin Ratio 0.9, Lipase 32 Rhythm Strip Rhythm Strip: Atrial flutter Rate: 121 Imaging Radiology Impression Abdomen/Pelvis CT 02/20/24 12:34 IMPRESSION: Diffuse ascites. Multiple gallstones. Findings suggestive of liver cirrhosis of the liver. Electronically Signed: Gerber Jovel MD at 13:41 EDT , Assessment & Plan Assessment/Plan (1) Acute kidney injury: (2) Elevated troponin: (3) Dilated cardiomyopathy: (4) Exertional dyspnea: (5) Cirrhosis of liver: QUALIFIERS: Ascites presence: with ascites Hepatic cirrhosis type: unspecified hepatic cirrhosis Qualified Code(s): K74.60 - Unspecified cirrhosis of liver; R18.8 - Other ascites (6) Edema, peripheral: (7) Atrial flutter: QUALIFIERS: Atrial flutter type: typical Qualified Code(s): I48.3 - Typical atrial flutter (8) Shortness of breath: (9) Ascites: QUALIFIERS: Ascites type: other type Qualified Code(s): R18.8 - Other ascites (10) Stented coronary artery: (11) Essential hypertension: PLAN: Plan Labs and imaging were reviewed CT of abdomen and pelvis was independently interpreted and results as : Diffuse ascites; Multiple gallstones; Findings suggestive of liver cirrhosis of the liver. Agrees with radiology interpretation Troponin is severely elevated. proBNP a day before presentation is severely elevated. Discussed case with cardiology who recommended holding off anticoagulation as patient may need paracentesis; and patient cardiomyopathy may be longstanding. Cardiology consult Discussed case with GI who agrees with ultrasound paracentesis. GI consult Labs on asctic fluids ordered. Trend CMP. TSH. Mildly elevated day before presentation, likely normal with regard to his age. Repeat TSH on presentation appeared normal. DVT prophylaxis SCDs ordered Insert advance care plan Advance care planning: Discussed with patient and family advanced directives as well as CODE STATUS. Explained various CODE STATUS: FULL CODE, DNR CCA, DNR CCA with no intubation, and DNR CC- and what each meant. Patient elected to be a full code with CPR and intubation if warranted. Patient's Yani is a surrogate decision maker order was placed. Time spent on discussion 16 minutes. Time spent in the patient's overall evaluation,decision-making process, review of diagnostic data, adjustment of management, discussion with other providers, nursing and ancillary staff involved in patient's care documentation,75 minutes. Charges/Coding Visit Charges Inpatient E&M: 34464 Init Hosp L3 Multi Select Codes Hospitalists' Procedures Procedures: 58168 Advncd Care Plan 30 Min
[2024-02-20] MEDS: dilTIAZem 25 MG/5 ML Vial 20 MG IV BOLUS ×2 (14:24→17:49)
[2024-02-20 15:13] LABS: Magnesium 2.4 mg/dL (1.6-2.6)
--- NOTE | 2024-02-20 16:56 | PCM.CONS.C ---
Assessment & Plan Assessment/Plan (1) Dilated cardiomyopathy: PLAN: He appears to have the clinical findings of a dilated cardiomyopathy with biventricular failure. His natruretic peptide is elevated and he has elevated jugular venous distention. The above is likely secondary to his tachycardia as well as possible underlying coronary artery disease. I would recommend obtaining an echocardiogram in a.m. to assess his systolic function and exclude any other valvular heart disease. (2) Elevated troponin: PLAN: He does have an elevated troponin which is likely demand mediated. I suspect that there is no acute ruptured plaque contributing to the above. We will however continue to trend this for now. I will hold off on giving any heparin at this time as he may require a paracentesis within the next 12 hours. (3) Atrial flutter: PLAN: He appears to have an atrial flutter with a 2-1 conduction. The rate should be better controlled with intravenous diltiazem at this time. I will hold off temporarily on anticoagulation for now. Recommend echocardiogram to assess ventricular function. It appears the conduction system abnormality is new (4) Stented coronary artery: PLAN: He does have previous coronary artery disease status post coronary bypass surgery, status post cardiac catheterization as noted above and stenting of his ramus intermedius as well as his right coronary artery. At some point he will need to have this evaluated by either noninvasive or invasive means. (5) Essential hypertension: PLAN: His blood pressure appears to be under fair control at this time. Will optimize his antihypertensives taking to cognizance his renal dysfunction at this time. (6) H/O coronary artery bypass surgery: PLAN: He is status post coronary bypass surgery as noted above. HPI Consult Data Date of Consult: 02/20/24 HPI Narrative HPI Narrative: SEVERIANO HERNANDEZ, is a 69 M who presents to the emergency room after calling the office with multiple complaints. He apparently had blood work done by his primary care physician which demonstrated an elevated troponin. He has apparently had ascites over the last number of weeks as well as pedal edema. He is also had some shortness of breath and has lost approximately 50 pounds of weight. He has a history of coronary artery disease status post three-vessel bypass surgery in [address] Dillard at [facility] with REYSE to distal of the LAD, saphenous vein graft to obtuse marginal which was evaluated and noted to be since occluded, and SVG to PDA. He also underwent PTCA/ERROL to RCA x2 in October 2017 and PTCA/ERROL to mid RAMUS on 07/27/2018. He also has a history of hypertension and hyperlipidemia. Interestingly it appears that he did have left ventricular systolic dysfunction diagnosed in 2018 with ejection fraction in the 30 to 35% range which had apparently improved to the 40% range in 2019. It does not appear that he had any follow-up after that. In the emergency room he was noted to have a tachycardia which appeared to be atrial flutter with a 2-1 conduction significant ascites, significant pedal edema. Cardiology was called for evaluation due to his previous cardiac condition. His last visits to the heart group was over 2 years ago. [facility] Medical History Kidney stones Non-smoker Coronary artery disease Hypertension Pure hypercholesterolemia Essential hypertension Atherosclerosis of coronary artery bypass graft without angina pectoris Non-ST elevation (NSTEMI) myocardial infarction White coat syndrome with hypertension RBBB Premature ventricular contraction Nonrheumatic aortic valve insufficiency Atherosclerosis of coronary artery of [place] heart without angina pectoris Non-alcoholic fatty liver disease Home Medications ?Medication ?Instructions ?Recorded ?Last Taken ?Type aspirin 81 mg tablet,delayed 81 mg PO DAILY heart health 05/24/17 02/20/24 History release (Adult Aspirin Regimen) furosemide 40 mg tablet 40 mg PO DAILY edema 02/20/24 02/20/24 History Allergy/AdvReac Type Severity Reaction Status Date / Time pravastatin sodium (From Allergy Unknown Verified 02/20/24 11:44 Pravachol) carvedilol (From Coreg) AdvReac Intermediate diarrhea Verified 02/20/24 11:44 atorvastatin calcium (From AdvReac Pain in Verified 02/20/24 11:44 Lipitor) joints gemfibrozil AdvReac myalgia Verified 02/20/24 11:44 Family History Mother CAD (coronary artery disease) Surgical History History of coronary artery stent placement History of esophagogastroduodenoscopy (EGD) (~2014) H/O coronary artery bypass surgery (~08/12/15) Social History Smoking Status: Never smoker alcohol intake: current details: rare substance use type: does not use ROS Constitutional Constitutional: Reports weight loss; Denies fever(s) Eyes Eyes: Reports systems reviewed and no addt'l complaints, except as documented ENT HEENT: Reports systems reviewed and no addt'l complaints, except as documented Cardiovascular Cardiovascular: Reports dyspnea at rest, dyspnea on exertion, pedal edema and weakness in extremities; Denies chest pain at rest, chest pain with activity, edema, palpitations or paroxysmal nocturnal dyspnea Respiratory/Chest Respiratory/Chest: Reports shortness of breath with exertion; Denies dyspnea on exertion, productive cough or shortness of breath at rest Gastrointestinal Gastrointestinal: Reports abdominal pain; Denies change in bowel habits, nausea, vomiting or weight changes Genitourinary Genitourinary: Denies difficulty urinating Musculoskeletal Musculoskeletal: Denies joint stiffness or muscle weakness Integumentary Integumentary: Denies lesions Neurologic Neurologic: Denies dizziness or syncope Psychiatric Psychiatric: Denies anxiety Endocrine Endocrinology: Denies excessive sweating or fatigue Hematologic/Lymphatic Hematologic/Lymphatic: Denies anemia Allergic/Immunologic Allergic/Immunologic: Denies seasonal rhinorrhea Physical Exam Const alert, oriented x3 and no apparent distress General Appearance: cooperative HEENT hearing grossly normal bilaterally Head and Scalp: atraumatic Eyes EOMs intact bilaterally Neck General: normal visual inspection Chest inspection of chest normal and palpation of chest normal Resp normal respiratory effort Auscultation: rales Cardio regular rate, regular rhythm, S1 normal heart sound and S2 normal heart sound Jugular Venous Distention: JVD GI GI Narrative: Distended abdomen with ascites Palpation: hepatomegaly Extremity normal capillary refill General Extremity: edema bilateral Peripheral Pulses: Yes pulses 2+ throughout and femoral pulses present Skin no rashes or lesions noted Neuro oriented x3 and CN's II-XII intact bilaterally Psych Appearance: grossly normal and appropriate Risk Stratification Risk Stratification Applicable: No Objective Data Vital Signs: Vital Signs Temp Pulse Resp BP Pulse Ox O2 Del Method 98.5 F 118 H 19 H 123/90 H 97 Nasal Cannula 02/20/24 16:00 02/20/24 16:00 02/20/24 16:00 02/20/24 16:00 02/20/24 16:00 02/20/24 16:00 Oxygen Delivery Method Nasal Cannula Weight: 212 lb 1.355 oz Body Mass Index (BMI) 28.8 Lab / Micro Data 02/20/24 11:55 02/20/24 11:55 Labs: Laboratory Results - last 24 hr 02/20/24 11:55: WBC 7.0, RBC 4.47 L, Hgb 13.7, Hct 43.2, MCV 96.6 H, MCH 30.6, MCHC 31.7 L, RDW Std Deviation 54.2 H, RDW Coeff of Omari 15.4 H, Plt Count 402, MPV 9.1, Immature Gran % (Auto) 0.400, Neut % (Auto) 78.5 H, Lymph % (Auto) 12.1 L, [place] % (Auto) 7.1, Eos % (Auto) 1.0, Baso % (Auto) 0.9, Absolute Neuts (auto) 5.5, Absolute Lymphs (auto) 0.85, Nucleated RBC % 0, PT 18.3 H, INR 1.5, APTT 31.6, Sodium 137, Potassium 4.2, Chloride 103, Carbon Dioxide 22.0, Anion Gap 12, BUN 32 H, Creatinine 1.72 H, Estim Creat Clear Calc 47.38, Est GFR (MDRD) Af Amer 51 L, Est GFR (MDRD) Non-Af 42 L, BUN/Creatinine Ratio 18.6, Glucose 130 H, Calcium 9.7, Magnesium 2.4, Total Bilirubin 2.80 H, AST 151 H, ALT 120 H, Alkaline Phosphatase 102, Troponin I High Sens 1838 H*, Total Protein 7.4, Albumin 3.5, Globulin 3.9, Albumin/Globulin Ratio 0.9, Lipase 32 Rhythm Strip Rhythm Strip: Atrial flutter Rate: 121 Cardiology Labs/Tests 02/20/24 11:55: WBC 7.0, RBC 4.47 L, Hgb 13.7, Hct 43.2, MCV 96.6 H, MCH 30.6, MCHC 31.7 L, Plt Count 402, MPV 9.1, Immature Gran % (Auto) 0.400, Neut % (Auto) 78.5 H, Lymph % (Auto) 12.1 L, [place] % (Auto) 7.1, Eos % (Auto) 1.0, Baso % (Auto) 0.9, Absolute Neuts (auto) 5.5, Nucleated RBC % 0, PT 18.3 H, INR 1.5, APTT 31.6, Sodium 137, Potassium 4.2, Chloride 103, Carbon Dioxide 22.0, Anion Gap 12, BUN 32 H, Creatinine 1.72 H, Est GFR (MDRD) Af Amer 51 L, Est GFR (MDRD) Non-Af 42 L, BUN/Creatinine Ratio 18.6, Glucose 130 H, Calcium 9.7, Magnesium 2.4, Total Bilirubin 2.80 H Rhythm: EKG: ECHO: Stress Test: Cardiac Cath: PCI: CT Surgery: Holter monitor: EPS: PPM: CXR: Chest CT Scan: Radiography Diagnostic Testing: Radiology Impression Abdomen/Pelvis CT 02/20/24 12:34 IMPRESSION: Diffuse ascites. Multiple gallstones. Findings suggestive of liver cirrhosis of the liver. Electronically Signed: Gerber Jovel MD at 13:41 EDT , Chest X-Ray 02/20/24 12:34 IMPRESSION: Cardiomegaly. Prior CABG. Less congestion and mild degree of CHF. Electronically Signed: Gerber Jovel MD at 14:24 EDT ,
--- NOTE | 2024-02-20 17:08 | ECHOD_ITS ---
Reason For Study: ATRIAL FIB/FLUTTER Procedure This was a 2D Doppler, Color Flow transthoracic echocardiogram. Exam performed in department. Left Ventricle Mildly dilated left ventricle. The left ventricular ejection fraction is 10 %. There is severe global hypokinesis of the left ventricle. Right Ventricle Severely dilated right ventricle. Moderately severe global right ventricular systolic dysfunction. Atria The left atrium is mildly enlarged. The right atrium is moderately enlarged. Mitral Valve Bileaflet diffuse mitral valve thickening. Moderately severe (3+) eccentric mitral valve insufficiency. Tricuspid Valve Normal tricuspid valve. Mild (1+) tricuspid valve insufficiency. Pulmonary artery systolic pressure is 45 mmHg. Aortic Valve Trisinus/trileaflet aortic valve. Mild focal aortic valve thickening. Mild (1+) aortic valve insufficiency. Pulmonic Valve Normal pulmonic valve. Great Vessels Normal aortic root. The pulmonary artery is normal size. The inferior vena cava is dilated. Pericardium/Pleural No pericardial effusion. MMode/2D Measurements & Calculations LVIDd: 5.8 cm IVSd: 1.1 cm LAV(MOD-bp): 88.4 ml LVIDs: 5.5 cm LVPWd: 1.1 cm LAV(MOD-bp) Indexed: 41.5 ml/m2 RVDd: 4.5 cm FS: 5.2 % LAV(MOD-sp2): 102.8 ml LAV(MOD-sp4): 68.8 ml SV(MOD-sp4): 30.1 ml LVAd ap4: 44.9 cm2 LVAd ap2: 46.0 cm2 LVLd ap4: 9.3 cm LVLd ap2: 10.2 cm EDV(MOD-sp4): 188.5 ml EDV(MOD-sp2): 179.0 ml EDV(sp4-el): 183.1 ml EDV(sp2-el): 175.0 ml LVAs ap4: 42.0 cm2 LVAs ap2: 42.4 cm2 LVLs ap4: 9.4 cm LVLs ap2: 10.0 cm ESV(MOD-sp4): 158.4 ml ESV(MOD-sp2): 155.0 ml ESV(sp4-el): 159.6 ml ESV(sp2-el): 152.3 ml EF(MOD-sp4): 16.0 % EF(MOD-sp2): 13.4 % EF(sp4-el): 12.8 % SV(MOD-sp2): 24.0 ml SV(sp4-el): 23.4 ml LA A4 area: 22.6 cm2 LA dimension(2D): 4.4 cm TAPSE: 1.2 cm RA A4 area: 26.2 cm2 Doppler Measurements & Calculations Ao V2 max: 82.8 cm/sec AI max marilia: 384.0 cm/sec LV V1 max: 76.5 cm/sec Ao max P.9 mmHg AI max P.0 mmHg LV V1 max P.4 mmHg Ao V2 mean: 53.0 cm/sec AI dec slope: 171.0 cm/sec2 LV V1 mean P.99 mmHg Ao mean P.3 mmHg AI P1/2t: 657.6 msec LV V1 mean: 45.4 cm/sec Ao V2 VTI: 12.0 cm LV V1 VTI: 10.8 cm AV (velocity ratio): 0.90 MR max marilia: 419.8 cm/sec PA V2 max: 53.4 cm/sec TR max marilia: 283.5 cm/sec MR max P.5 mmHg PA V2 mean: 37.0 cm/sec TR max P.2 mmHg MR mean marilia: 348.7 cm/sec MR mean P.3 mmHg MR VTI: 126.0 cm ECHO/Echo Complete Interpretation Summary The left ventricular ejection fraction is 10 %. Mildly dilated left ventricle. Moderately severe (3+) eccentric mitral valve insufficiency. Mild (1+) tricuspid valve insufficiency. Compared to previous study, the left ventricular systolic function has worsened .. Ordering Physician: Ivan Mccall Referring Physician: Cliff Pardo Chi Performed By: Mallika Chen, RDCS, RVT
[2024-02-20] MEDS: 0.9% Saline Lock 10 ML Syringe IV (17:52)
[2024-02-20] MEDS: Furosemide 40 MG/4 ML Vial IV (17:52)
--- NOTE | 2024-02-20 17:55 | US_ITS ---
PROCEDURE: Ultrasound guided paracentesis. DATE OF EXAMINATION: February 21, 2024.. INDICATION: Male, 69 years old. Ascites. PHYSICIAN: Gerber Jovel M.D. TECHNIQUE: The risks, benefits, and alternatives to the procedure were explained to the patient. The specific risks of bleeding, infection, and damage to bowel were detailed and accepted. Witnessed informed consent was obtained. The abdomen was ultrasonographically surveyed. An appropriate pocket of fluid was identified at the right lower quadrant. The skin were cleaned and prepped in the usual sterile fashion. Using ultrasound guidance, the peritoneal cavity was accessed with a 5-Pal[place] paracentesis needle/catheter system. The trocar was removed. A total of 8650 ml of harriett-colored fluid were removed from the peritoneal cavity. A 100 mm sample was sent to the laboratory for analysis. The catheter was removed and a sterile dressing was applied. The procedure was well tolerated. US/Paracentesis with US IMPRESSION: Ultrasound guided paracentesis. Electronically Signed: Gerber Jovel MD at 9:59 EDT ,
[2024-02-20] MEDS: Diltiazem 125 MG in Dextrose 5%-Water (100mL Bag) 100 ML 10 MG IV (18:00)
[2024-02-20 18:38] LABS: LDH 302 U/L (87-241); Troponin-I HS 1766 pg/mL (3.0-78.0)
--- NOTE | 2024-02-20 18:43 | EX.PCM.CON.G ---
HPI Consult Data Date of Consult: 02/20/24 HPI Narrative Reason for Consultation: Ascites HPI Narrative: SEVERIANO HERNANDEZ, is a 69 M who presents with worsening shortness of breath and increasing abdominal distention. He has a prior CABG triple-vessel 2016. History of CHF, CAD with a stent. He has an appointment to see me on 02/22/2024 due to abnormal liver function test and enzymes along with recently the last 2 months he developed abdominal swelling, ascites and increasing lower extremity edema. He has been on Lasix he said it used to work for CHF at bedside to be working as well now. He is having exertional shortness of breath but denies any chest pain. Denies vomiting or diarrhea. No melena. In the ED he was discovered to be in CHF and he was noted to have increased BNP and increased troponins. His elevated troponins were thought to be secondary to demand ischemia. He is currently being seen by cardiology at this time. He has gained approximately 25 pounds over the last month. He has no history of alcohol abuse. He no history of any hepatotoxic agents. He does not take Tylenol. There is no family history of liver disease. He has never had blood transfusion. No history of chronic viral hepatitis. No other history of autoimmune disease. I am not sure if he has a history of pulmonary hypertension or right heart failure [facility] Medical History Kidney stones Non-smoker Coronary artery disease Hypertension Pure hypercholesterolemia Essential hypertension Atherosclerosis of coronary artery bypass graft without angina pectoris Non-ST elevation (NSTEMI) myocardial infarction White coat syndrome with hypertension RBBB Premature ventricular contraction Nonrheumatic aortic valve insufficiency Atherosclerosis of coronary artery of [place] heart without angina pectoris Non-alcoholic fatty liver disease Home Medications ?Medication ?Instructions ?Recorded ?Last Taken ?Type aspirin 81 mg tablet,delayed 81 mg PO DAILY heart health 05/24/17 02/20/24 History release (Adult Aspirin Regimen) furosemide 40 mg tablet 40 mg PO DAILY edema 02/20/24 02/20/24 History Allergy/AdvReac Type Severity Reaction Status Date / Time pravastatin sodium (From Allergy Unknown Verified 02/20/24 11:44 Pravachol) carvedilol (From Coreg) AdvReac Intermediate diarrhea Verified 02/20/24 11:44 atorvastatin calcium (From AdvReac Pain in Verified 02/20/24 11:44 Lipitor) joints gemfibrozil AdvReac myalgia Verified 02/20/24 11:44 Family History Mother CAD (coronary artery disease) Surgical History History of coronary artery stent placement History of esophagogastroduodenoscopy (EGD) (~2014) H/O coronary artery bypass surgery (~08/12/15) Social History Smoking Status: Never smoker alcohol intake: current details: rare substance use type: does not use ROS Constitutional Constitutional: Reports weight loss; Denies fever(s) Eyes Eyes: Reports systems reviewed and no addt'l complaints, except as documented ENT HEENT: Reports systems reviewed and no addt'l complaints, except as documented Cardiovascular Cardiovascular: Reports dyspnea at rest, dyspnea on exertion, pedal edema and weakness in extremities; Denies chest pain at rest, chest pain with activity, edema, palpitations or paroxysmal nocturnal dyspnea Respiratory/Chest Respiratory/Chest: Reports shortness of breath with exertion; Denies dyspnea on exertion, productive cough or shortness of breath at rest Gastrointestinal Gastrointestinal: Reports abdominal pain; Denies change in bowel habits, nausea, vomiting or weight changes Genitourinary Genitourinary: Denies difficulty urinating Musculoskeletal Musculoskeletal: Denies joint stiffness or muscle weakness Integumentary Integumentary: Denies lesions Neurologic Neurologic: Denies dizziness or syncope Psychiatric Psychiatric: Denies anxiety Endocrine Endocrinology: Denies excessive sweating or fatigue Hematologic/Lymphatic Hematologic/Lymphatic: Denies anemia Allergic/Immunologic Allergic/Immunologic: Denies seasonal rhinorrhea Physical Exam Const alert, oriented x3 and no apparent distress General Appearance: cooperative HEENT hearing grossly normal bilaterally Head and Scalp: atraumatic Eyes EOMs intact bilaterally Neck General: normal visual inspection Chest inspection of chest normal and palpation of chest normal Resp normal respiratory effort Auscultation: rales Cardio regular rate, regular rhythm, S1 normal heart sound and S2 normal heart sound Jugular Venous Distention: JVD GI GI Narrative: Distended abdomen with ascites Palpation: hepatomegaly Extremity normal capillary refill General Extremity: edema bilateral Peripheral Pulses: Yes pulses 2+ throughout and femoral pulses present Skin no rashes or lesions noted Neuro oriented x3 and CN's II-XII intact bilaterally Psych Appearance: grossly normal and appropriate Lab / Micro Data 02/20/24 11:55 02/20/24 11:55 Labs: Laboratory Results - last 24 hr 02/20/24 11:55: WBC 7.0, RBC 4.47 L, Hgb 13.7, Hct 43.2, MCV 96.6 H, MCH 30.6, MCHC 31.7 L, RDW Std Deviation 54.2 H, RDW Coeff of Omari 15.4 H, Plt Count 402, MPV 9.1, Immature Gran % (Auto) 0.400, Neut % (Auto) 78.5 H, Lymph % (Auto) 12.1 L, [place] % (Auto) 7.1, Eos % (Auto) 1.0, Baso % (Auto) 0.9, Absolute Neuts (auto) 5.5, Absolute Lymphs (auto) 0.85, Nucleated RBC % 0, PT 18.3 H, INR 1.5, APTT 31.6, Sodium 137, Potassium 4.2, Chloride 103, Carbon Dioxide 22.0, Anion Gap 12, BUN 32 H, Creatinine 1.72 H, Estim Creat Clear Calc 47.38, Est GFR (MDRD) Af Amer 51 L, Est GFR (MDRD) Non-Af 42 L, BUN/Creatinine Ratio 18.6, Glucose 130 H, Calcium 9.7, Magnesium 2.4, Total Bilirubin 2.80 H, AST 151 H, ALT 120 H, Alkaline Phosphatase 102, Troponin I High Sens 1838 H*, Total Protein 7.4, Albumin 3.5, Globulin 3.9, Albumin/Globulin Ratio 0.9, Lipase 32 02/20/24 18:05: Lactate Dehydrogenase 302 H, Troponin I High Sens 1766 H* Rhythm Strip Rhythm Strip: Atrial flutter Rate: 121 Imaging Radiology Impression Abdomen/Pelvis CT 02/20/24 12:34 IMPRESSION: Diffuse ascites. Multiple gallstones. Findings suggestive of liver cirrhosis of the liver. Electronically Signed: Gerber Jovel MD at 13:41 EDT , Chest X-Ray 02/20/24 12:34 IMPRESSION: Cardiomegaly. Prior CABG. Less congestion and mild degree of CHF. Electronically Signed: Gerber Jovel MD at 14:24 EDT , Assessment & Plan Assessment/Plan (1) Cirrhosis of liver: QUALIFIERS: Hepatic cirrhosis type: unspecified hepatic cirrhosis Ascites presence: with ascites Qualified Code(s): K74.60 - Unspecified cirrhosis of liver; R18.8 - Other ascites PLAN: He was apparently normal 6 months ago, when he noticed insidious onset of painless?abdominal distension, which was gradually progressive till the date of?examination. He had marginal improvement in his symptom for few weeks with some medications given by a doctor, however he had progressive /?gradual distension of abdomen-thereafter ? On stopping his?medications. Initially he did not have any leg swelling, but for?last one month ( 5months after onset of Abd. Distension) he has developed leg swelling on both sides?,more in the?evening hrs,?and is gradually progressing,without oliguria , hematuria or?facial puffiness. ? Cirrhosis of liver?with portal hypertension secondary to cardiogenic ascites. However he would need an ultrasound the heart to look for signs of portal hypertension and/or right heart failure. He should be evaluated for amyloidosis, sarcoidosis, hemochromatosis that can all be associated with heart failure. He should also be evaluated for autoimmune hepatitis, primary sclerosing cholangitis and primary biliary cirrhosis. He has not had any travel outside of the country so I do not think about tuberculosis but he will also be checked with a QuantiFERON gold. He will also need to be check for hepatocellular carcinoma and he will need a diagnostic and therapeutic paracentesis to look for peritoneal carcinomatosis and a SAG gradient to see if he has cardiogenic cirrhosis which would yield a low SAG gradient with high protein in the ascitic fluid.. (2) Shortness of breath: PLAN: Plan He appears to have the clinical findings of a dilated cardiomyopathy with biventricular failure. His natruretic peptide is elevated and he has elevated jugular venous distention. The above is likely secondary to his tachycardia as well as possible underlying coronary artery disease. I would recommend obtaining an echocardiogram in a.m. to assess his systolic function and exclude any other valvular heart disease. Charges/Coding Visit Charges Inpatient E&M: 18088 Init Hosp L3
[2024-02-20 20:13] LABS: International Normalized Ratio 1.5; Prothrombin Time (Protime)PT. 18.3 SECONDS (11.7-14.9)
[2024-02-20 20:14] LABS: Partial Thromboplast Time 32.1 Seconds (24.1-36.2)
[2024-02-20 20:24] LABS: Hemoglobin A1c 5.9 % (3.8-5.6)
[2024-02-20 20:30] LABS: Ammonia < 10.0 umol/L (11-32)
[2024-02-20 20:50] LABS: Ferritin 355 ng/mL (26-388); Iron 65 ug/dL (65-175); Iron Binding Capacity,Total 306 ug/dL (250-450); PERCENT IRON SATURATION 21.2 % (15.0-55.0); Troponin-I HS 1738 pg/mL (3.0-78.0)
[2024-02-20 21:03] LABS: Albumin, Serum 3.4 g/dL (3.2-5.0); CPK Total, Creatine Kinase 148 U/L (39-308)
[2024-02-21] VITALS (40 sets, daily range): BP systolic 91–134; BP diastolic 58–89; PULSE 57–98; RESP 14–31; TEMP 36.3–36.7; O2SAT 89–100; BMI 28.1
--- NOTE | 2024-02-21 | LIVB_PTH ---
PATIENT: SEVERIANO HERNANDEZ LOC: [facility] U#:[id number] AGE/SX: 69/M ROOM: [facility] RE02/20/[address]: Dr. Ravi Peralta MD : 1955 BED: 1 DIS: 02/23/2024 SPEC #: [id number] RECD: 02/21/24 11:07 STATUS: JACKIE ROBINSMohan #: [id number] LETICIA: 02/21/24 00:[address]: Ravi Peralta DEPT: SURGICAL PATHOLOGY RECD BY: Philip Pena ENTERED: 02/21/24 13:29 SP TYPE: LIVER BX OTHR DR: MD Dr. Brayan Sandoval MD Dr. Tai Chi Kwok, MD Tissues: Liver, NOS Procedures: PAS with Diastase (control) Trichrome (control) Special Stain Group I PAS Stain (control) Surgery Specimen Level V Retic (control) Iron Stain (control) HEADER OPERATION: CT guided liver biopsy PRE-OP DIAGNOSIS: Liver failure TISSUE SUBMITTED: 18 gauge x 3 cores MICROSCOPIC DIAGNOSIS Liver, CT guided core biopsy: Liver parenchymal tissue with increased portal, periportal fibrosis, bridging fibrosis and changes suggestive of early cirrhosis. See microscopic description and comment. 02/22/2024 COMMENT Correlation with clinical, radiologic, laboratory findings and appropriate follow up are necessary. Case has been reviewed in consultation with Dr. Yi who concurs with the above diagnosis. IDC:AM MICROSCOPIC DESCRIPTION Slides are reviewed. This specimen shows liver parenchymal tissue with partial distortion of normal lobular architecture. Dilatation of sinusoids are noted. Significant inflammation is not seen. Portal areas show ductal dilatation and bile accumulation. Reticulin and trichrome stains highlight increased portal, periportal and bridging fibrosis with focal changes suggestive of early cirrhosis. Iron stains show absent iron. PAS stain with and without diastase do not show any abnormal accumulatio of protein. All stains are performed with appropriate matched controls. GROSS DESCRIPTION Received is one container labeled with the patient's name and not further designated. The specimen consists of multiple elongated fragments of solorzano soft tissue that in aggregate measure 1.3 x 0.3 x 0.1 cm. The specimen is totally submitted in one cassette. 02/21/2024 TC:5 CPT:92905,58480b4
--- NOTE | 2024-02-21 | FLU_PTH ---
PATIENT: SEVERIANO HERNANDEZ LOC: [facility] U#:[id number] AGE/SX: 69/M ROOM: [facility] RE02/20/[address]: Dr. Ravi Peralta MD : 1955 BED: 1 DIS: 02/23/2024 SPEC #: [id number] RECD: 02/21/24 09:30 STATUS: JACKIE DOREEN #: [id number] LETICIA: 02/21/24 00:[address]: Ravi Peralta DEPT: CYTOLOGY RECD BY: Philip Pena ENTERED: 02/21/24 13:02 SP TYPE: Fluid OTHR DR: MD Dr. Brayan Sandoval MD Dr. Tai Chi Kwok, MD Tissues: PARACENTESIS FLUID Procedures: Special Stain Group II Surgery Specimen Level IV Cytospin Fluid HEADER OPERATION: Ultrasound guided paracentesis fluid PRE-OP DIAGNOSIS: Ascites TISSUE SUBMITTED: Paracentesis fluid for cytology DIAGNOSIS CYTOLOGY Paracentesis fluid for cytology (cytospin and cellblock): Negative for malignant cells. See comment. NAVARRO 02/22/2024 COMMENT Clinical correlation and appropriate follow up are necessary. CYTOLOGY STUDY Slides are reviewed. CYTOLOGY GROSS Received is 75 ml of hazy-yellow fluid labeled with the patient's name and and designated per the requisition as Paracentesis fluid. Submitted for cytology preparation including cell block. Mr 02/21/2024 TC:5 CPT: 87599,43468
[2024-02-21] MEDS: 0.9% Saline Lock 10 ML Syringe IV ×4 (00:23→22:19)
[2024-02-21 01:03] LABS: Troponin-I HS 1937 pg/mL (3.0-78.0)
[2024-02-21] MEDS: Diltiazem 125 MG in Dextrose 5%-Water (100mL Bag) 100 ML 15 MG IV ×2 (02:43→12:19)
[2024-02-21 06:12] LABS: Absolute Lymphocyte Count 0.95 X10^3/uL (0.83-4.51); Absolute Neutrophil Count 5.4 X10^3/uL (2.0-7.7); Basophil# 0.07 X10^3/uL; Basophil% 0.9 % (0-1); Eosinophil# 0.23 X10^3/uL; Eosinophils% 3.1 % (0-5); Hemoglobin 12.4 g/dL (13.0-16.5); Lymphocyte # 0.95 X10^3/ul (0.83-4.51); Lymphocyte % 12.8 % (19-41); Mean Corp Hgb Conc 32.6 g/dL (32-36); Mean Corpuscular Hgb 31.6 pg (27.0-32.0); Mean Corpuscular Volume 96.9 fL (80-94); Monocyte# 0.73 X10^3/uL; Monocyte% 9.8 % (0-10); NRBC Flagged by Analyzer 0 % (0-5); Neutrophil # 5.41 X10^3/uL (2.7-7.7); Platelet Count 354 K/mm3 (150-450); RBC Distribution Width CV 15.5 % (11.6-14.6); RBC Distribution Width SD 54.2 fl (35.1-43.9); Red Blood Count 3.92 M/mm3 (4.6-6.2); White Blood Count 7.4 K/mm3 (4.4-11.0)
[2024-02-21 06:50] LABS: ALB/GLOB Ratio 0.8 RATIO (0.9-2.4); AST(SGOT) 106 U/L (15-37); Alanine Aminotransfer ALT/SGPT 110 U/L (16-61); Albumin, Serum 3.2 g/dL (3.2-5.0); Alkaline Phosphatase 108 U/L (45-117); Anion Gap 7 (5-15); BUN 34 mg/dL (7-18); BUN/Creat Ratio 21.7 RATIO (10-20); Calcium,Total 9.1 mg/dL (8.5-10.1); Chloride 103 mmol/L (98-107); Cholesterol 176 mg/dL (200); Creatinine, Serum 1.57 mg/dL (0.70-1.30); EST Glomerular Filtration Rate 47 mL/min (>60); Est Glom Filt Rate - Afr Amer 56 mL/min (>60); Estimated Creatinine Clearance 51.42 ml/min; Globulin 3.8 g/dL (2.2-4.2); Glucose 114 mg/dL (74-106); High Density Lipoprotein 33 mg/dL; Potassium 3.7 mmol/L (3.5-5.1); Sodium Level 135 mmol/L (136-145); Triglycerides 118 mg/dL; Very Low Density Lipoprotein 24 mg/dL (5-40)
--- NOTE | 2024-02-21 07:32 | CT_ITS ---
PROCEDURE: CT DIRECTED CORE LIVER BIOPSY INDICATION: Male, 69 years old. Acute on chronic liver failure PHYSICIAN: Dr. Med Vallejo CONSENT: Written informed consent was obtained having explained the risks, benefits and alternatives in detail with the patient who accepted the risks and agreed to proceed. Laboratory review and clinical assessment was performed. CONSCIOUS SEDATION PROTOCOL: The Drugs used were: 2 mg Versed, IV., and 50 mcg Fentanyl, IV. The sedation time was: 17 minutes. Conscious sedation was started at 10:31 AM and terminated at 10:48 AM. The conscious sedation protocol was independently monitored. RADIATION DOSAGE (If Supplied By Facility): CTDIvol = ( 18.6 ) mGy, DLP = ( 464.58 ) mGycm Individualized dose optimization techniques were used for this CT. TECHNIQUE: Using CT image guidance with image documentation, a suitable location in the left lobe of the liver was identified. Using an anterior approach, puncture of the liver was uneventful with an 18-gauge core needle system. 3, 18-gauge core samples were obtained, and submitted in formalin to the pathologist for further assessment. Followup CT scan revealed no distinct sequelae. CT/Biopsy/Inj or Needle Placement IMPRESSION: 1. CT directed core needle biopsy of the liver, using CT image guidance with image documentation as described. 2. Conscious Sedation protocol utilized with independent monitoring. Electronically Signed: Gerber Jovel MD at 11:52 EDT ,
--- NOTE | 2024-02-21 08:43 | NURSING ---
pt down to radiology for testing per this rn via bed. bedside handoff given to rodolfo rn with no questions voiced.
[2024-02-21] MEDS: Lidocaine 2% (20 ml mdv) 20 ML Vial INFILT ×2 (08:50→10:43)
[2024-02-21 09:47] LABS: Cytology, Body Fluid / CSF SEE PATHOLOGY REPORT
[2024-02-21] MEDS: Midazolam 2 MG/2 ML Syringe IV (10:31)
[2024-02-21] MEDS: fentaNYL 100 MCG/2 ML Ampul IV (10:34)
[2024-02-21 10:56] LABS: Body Fluid Mononuclear WBC # 0.198 10^3/uL; Body Fluid Mononuclear WBC % 78.6 %; Body Fluid Polynuclear WBC # 0.054 10^3/uL; Body Fluid Polynuclear WBC % 21.4 %; Body Fluid Total Cells Counted 0.299 10^3/ul; White Blood Count/Body Fluid 0.252 10^3/uL
[2024-02-21 11:36] LABS: Glucose, Body Fluid 112 mg/dL (40-70); LDH,Body Fluid 91 Units/L (Not Establ.); Protein, Body Fluid 3.8 g/dL (Not Establ.)
[2024-02-21 12:17] LABS: Lymphocytes 26 %; Macrophages 20 %; Mesothelial Cells 6 %; Monocytes 13 %; Neutrophil (Segs) 35 %
[2024-02-21 12:18] LABS: Appearance/Body Fluid CLEAR; Auto B Fluid Analyzer BKGD Ct COUNTS W/IN LIMITS (W/IN LIMITS); Color/Body Fluid YELLOW; Red Cell Count/Body Fluid 135 /mm3; Source- Body Fluid PARACENTESIS
[2024-02-21 12:19] LABS: Body Fluid QC Type(s) BF1Q
--- NOTE | 2024-02-21 12:32 | NURSING ---
jesus backed down to 10mg/hr for bp 93/69 with hr 57-73. dr. millard text to update. pt resting in bed with no needs. at bedside.
--- NOTE | 2024-02-21 13:20 | CASEMGMT ---
RN CM Face to Face with patient for initial transition planning/care coordination assessment. RN CM introduced self and role at [facility]. Patient lying in bed, alert and oriented, at bedside. Patient willing to participate in assessment and is able to answer all questions appropriately. Care providers, pharmacy, and demographics verified. Strata: 2 PCP: Edvin Specialists: Stefany, gunner's mate m; Friend, GI Preferred Pharmacy: [facility] Insurance: [facility] Prescription Benefit: yes Living Will/HPOA: yes, Sherita Fowler LNOK: Living Arrangements: Patient lives with in a 2 story home. Patient is independent and able to ambulate stairs. Transportation: self, DME/HHC: Patient denies DME in the home. Patient has had HHC in the past. No previous SNF Patient wishes to discharge home, denies need for home health at this time. Patient states he has no further needs or concerns at this time. CM to follow for discharge planning needs that may arise. Disposition Plan: Patient to discharge home with family support and follow-up plans in place. Eulalia MAGUIRE, RN, CM
[2024-02-21] MEDS: Albumin Human 25% (100 mL) 25 GM/100 ML BAG IV (13:27)
--- NOTE | 2024-02-21 14:46 | PN.HOSP_ITS ---
Subjective Subjective Feels much better today after his paracentesis. Liver biopsy was also done Objective Data Objective Data Vital Signs: Vital Signs Temp Pulse Resp BP Pulse Ox O2 Del Method O2 Flow Rate 97.8 F 77 16 108/61 98 Room Air 2 02/21/24 12:00 02/21/24 14:00 02/21/24 14:00 02/21/24 14:00 02/21/24 14:00 02/21/24 14:00 02/21/24 11:15 Oxygen Flow Rate (L/min) 2 Oxygen Delivery Method Room Air Weight: 207 lb 10.807 oz Body Mass Index (BMI) 28.1 Intake & Output: Intake and Output for Last 24 Hours 02/20/24 02/21/24 02/22/24 03:59 03:59 03:59 Intake Total 323.58 / 338.58 135.75 / 135.75 Output Total 1000 / 1000 57238 / 91940 Balance -676.42 / -661.42 -79771.25 / -73052.25 Lab / Micro Data 02/21/24 05:35 02/21/24 05:35 Labs: Laboratory Results - last 24 hr 02/20/24 11:55: Magnesium 2.4 02/20/24 18:05: Lactate Dehydrogenase 302 H, Troponin I High Sens 1766 H* 02/20/24 19:32: PT 18.3 H, INR 1.5, APTT 32.1, Hemoglobin A1c 5.9 H, Iron 65, TIBC 306, Iron Saturation 21.2, Ferritin 355, Ammonia < 10.0 L, Total Creatine Kinase 148, Troponin I High Sens 1738 H*, Albumin 3.4, TSH 3.250 02/21/24 00:03: Troponin I High Sens 1937 H* 02/21/24 05:35: WBC 7.4, RBC 3.92 L, Hgb 12.4 L, Hct 38.0 L, MCV 96.9 H, MCH 31.6, MCHC 32.6, RDW Std Deviation 54.2 H, RDW Coeff of Omari 15.5 H, Plt Count 354, MPV 9.0, Immature Gran % (Auto) 0.400, Neut % (Auto) 73.0 H, Lymph % (Auto) 12.8 L, [place] % (Auto) 9.8, Eos % (Auto) 3.1, Baso % (Auto) 0.9, Absolute Neuts (auto) 5.4, Absolute Lymphs (auto) 0.95, Nucleated RBC % 0, Sodium 135 L, Potassium 3.7, Chloride 103, Carbon Dioxide 25.0, Anion Gap 7, BUN 34 H, C reatinine 1.57 H, Estim Creat Clear Calc 51.42, Est GFR (MDRD) Af Amer 56 L, Est GFR (MDRD) Non-Af 47 L, BUN/Creatinine Ratio 21.7 H, Glucose 114 H, Calcium 9.1, Total Bilirubin 2.00 H, AST 106 H, ALT 110 H, Alkaline Phosphatase 108, Total Protein 7.0, Albumin 3.2, Globulin 3.8, Albumin/Globulin Ratio 0.8 L, Triglycerides 118, Cholesterol 176, LDL Cholesterol 119, VLDL Cholesterol 24, H DL Cholesterol 33 L 02/21/24 09:31: Fluid Source PARACENTESIS, Fluid Color YELLOW, Fluid Appearance CLEAR, Fluid WBC 0.252, Fluid RBC 135, Fluid Tot Cell Count 0.299, Fld Polynuclear WBCs # 0.054, Fld Polynuclear WBCs % 21.4, Fluid Mononuclear WBCs 0.198, Fld Mononuclear WBCs % 78.6, Fluid Neutrophils 35, Fluid Lymphocytes 26, Fluid Monocytes 13, Fluid Macrophages 20, Fld Mesothelial Cells 6, Fl Pathologist Comment May follow, Fluid Glucose 112 H, Fluid Total Protein 3.8, Fluid LDH 91, Fluid Comment 2 SEE COMMENT Micro: Microbiology 02/21/24 09:31 Fluid - Paracentesis (Abd) Gram Stain - Final Radiography Diagnostic Testing: Radiology Impression Paracentesis Ultrasound 02/20/24 17:55 IMPRESSION: Ultrasound guided paracentesis. Electronically Signed: Gerber Jovel MD at 9:59 EDT , Biopsy CT 02/21/24 07:32 IMPRESSION: 1. CT directed core needle biopsy of the liver, using CT image guidance with image documentation as described. 2. Conscious Sedation protocol utilized with independent monitoring. Electronically Signed: Gerber Jovel MD at 11:52 EDT , Rhythm Strip Rhythm Strip: Atrial flutter Rate: 121 Physical Exam Narrative General: Alert, Oriented x3, Cooperative, No apparent distress HEENT: Atraumatic, PERRLA, EOMI, Normocephalic Oral: Moist Mucosa Neck: Supple, No JVD Lungs: Diminished, Normal air movement, No rhonchi, No wheeze, No rales Cardiovascular: Regular rate, Regular Rhythm, Normal S1, Normal S2, No murmurs Abdomen: Soft, Non Tender, Non-Distended, No Hepato-splenomegaly Extremities: Edema, Capillary Refill Less than 3 Seconds Skin: No rashes, No breakdown Musculoskeletal: No Tenderness to Palpation of Joints or Extremities Neurological: No focal neurological deficits, Motor Exam 5/5 strength throughout, Sensory exam intact to light touch and pain Psych/Mental Status: Normal Affect, Appropriate Assessment & Plan Assessment/Plan (1) Acute kidney injury: (2) Dilated cardiomyopathy: (3) Atrial flutter: QUALIFIERS: Atrial flutter type: typical Qualified Code(s): I48.3 - Typical atrial flutter PLAN: Plan 1. Atrial flutter with acute decompensated systolic CHF/CAD status post CABG and stent/essential HTN/HLD ? Poor outpatient follow-up ? Continue with Cardizem drip ? Echo with an EF of 10% and dilated right ventricle with severe left ventricular hypokinesis ? Continue with Lasix ? Appreciate cardiology's assistance ? Will wean Cardizem as able and started on oral Coreg 6.25 mg this evening ? Likely that the A-flutter is what is causing the decompensation of his heart failure will add further goal-directed therapy as blood pressure allows 2. CHEN with possible cirrhosis and ascites ? The ascites is likely related to the significant heart failure ? Appreciate gastroenterology's assistance ? Doing extensive biochemical evaluation ? Liver biopsy has been performed ? He did have a paracentesis, waiting for albumin to do the SAAG ? Post paracentesis of 8600 cc, he had some hypotension so he is receiving albumin DVT: SCDs Charges/Coding Visit Charges Inpatient E&M: 40322 Subs Hosp L2
--- NOTE | 2024-02-21 15:05 | NURSING ---
pt in room with apnea obs while sleeping. o2 appled at 2l for spo2 86% on ra.
[2024-02-21] MEDS: Carvedilol 6.25 MG Tablet PO (16:04)
--- NOTE | 2024-02-21 16:20 | CASEMGMT ---
RN KEESHA NOTE: Pt meets criteria for palliative referral per [facility] screening tool. RN KEESHA to room, introduced self and role. Discussed palliative care w/pt and he declines wanting a referral at this time. Michelle MAGUIRE RN CM
[2024-02-21] MEDS: Furosemide 40 MG/4 ML Vial IV (17:42)
[2024-02-21] MEDS: Aspirin E.C. 81 MG Tablet PO (17:42)
--- NOTE | 2024-02-21 18:38 | PN.GI_ITS ---
Subjective Subjective Patient underwent large-volume paracentesis and liver biopsy today. He feels a lot better. Objective Data Objective Data Vital Signs: Vital Signs Temp Pulse Resp BP Pulse Ox O2 Del Method O2 Flow Rate 97.4 F L 92 16 106/60 97 Room Air 2 02/21/24 18:00 02/21/24 18:00 02/21/24 18:00 02/21/24 18:00 02/21/24 18:00 02/21/24 18:00 02/21/24 15:22 Oxygen Flow Rate (L/min) 2 Oxygen Delivery Method Room Air Weight: 207 lb 10.807 oz Body Mass Index (BMI) 28.1 Intake & Output: Intake and Output for Last 24 Hours 02/19/24 02/20/24 02/21/24 23:59 23:59 23:59 Intake Total 263.58 / 278.58 537.42 / 537.42 Output Total 1000 / 1000 41375 / 93776 Balance -736.42 / -721.42 -52087.58 / -31456.58 Lab / Micro Data 02/21/24 05:35 02/21/24 05:35 Labs: Laboratory Results - last 24 hr 02/20/24 18:05: Lactate Dehydrogenase 302 H, Troponin I High Sens 1766 H* 02/20/24 19:32: PT 18.3 H, INR 1.5, APTT 32.1, Hemoglobin A1c 5.9 H, Iron 65, TIBC 306, Iron Saturation 21.2, Ferritin 355, Ammonia < 10.0 L, Total Creatine Kinase 148, Troponin I High Sens 1738 H*, Albumin 3.4, TSH 3.250 02/21/24 00:03: Troponin I High Sens 1937 H* 02/21/24 05:35: WBC 7.4, RBC 3.92 L, Hgb 12.4 L, Hct 38.0 L, MCV 96.9 H, MCH 31.6, MCHC 32.6, RDW Std Deviation 54.2 H, RDW Coeff of Omari 15.5 H, Plt Count 354, MPV 9.0, Immature Gran % (Auto) 0.400, Neut % (Auto) 73.0 H, Lymph % (Auto) 12.8 L, [place] % (Auto) 9.8, Eos % (Auto) 3.1, Baso % (Auto) 0.9, Absolute Neuts (auto) 5.4, Absolute Lymphs (auto) 0.95, Nucleated RBC % 0, Sodium 135 L, Potassium 3.7, Chloride 103, Carbon Dioxide 25.0, Anion Gap 7, BUN 34 H, C reatinine 1.57 H, Estim Creat Clear Calc 51.42, Est GFR (MDRD) Af Amer 56 L, Est GFR (MDRD) Non-Af 47 L, BUN/Creatinine Ratio 21.7 H, Glucose 114 H, Calcium 9.1, Total Bilirubin 2.00 H, AST 106 H, ALT 110 H, Alkaline Phosphatase 108, Total Protein 7.0, Albumin 3.2, Globulin 3.8, Albumin/Globulin Ratio 0.8 L, Triglycerides 118, Cholesterol 176, LDL Cholesterol 119, VLDL Cholesterol 24, H DL Cholesterol 33 L 02/21/24 09:31: Fluid Source PARACENTESIS, Fluid Color YELLOW, Fluid Appearance CLEAR, Fluid WBC 0.252, Fluid RBC 135, Fluid Tot Cell Count 0.299, Fld Polynuclear WBCs # 0.054, Fld Polynuclear WBCs % 21.4, Fluid Mononuclear WBCs 0.198, Fld Mononuclear WBCs % 78.6, Fluid Neutrophils 35, Fluid Lymphocytes 26, Fluid Monocytes 13, Fluid Macrophages 20, Fld Mesothelial Cells 6, Fl Pathologist Comment May follow, Fluid Glucose 112 H, Fluid Total Protein 3.8, Fluid LDH 91, Fluid Comment 2 SEE COMMENT Micro: Microbiology 02/21/24 09:31 Fluid - Paracentesis (Abd) Gram Stain - Final Radiography Diagnostic Testing: Radiology Impression Paracentesis Ultrasound 02/20/24 17:55 IMPRESSION: Ultrasound guided paracentesis. Electronically Signed: Gerber Jovel MD at 9:59 EDT , Biopsy CT 02/21/24 07:32 IMPRESSION: 1. CT directed core needle biopsy of the liver, using CT image guidance with image documentation as described. 2. Conscious Sedation protocol utilized with independent monitoring. Electronically Signed: Gerber Jovel MD at 11:52 EDT , Rhythm Strip Rhythm Strip: Atrial flutter Rate: 121 Physical Exam Narrative General: Alert, Oriented x3, Cooperative, No apparent distress HEENT: Atraumatic, PERRLA, EOMI, Normocephalic Oral: Moist Mucosa Neck: Supple, No JVD Lungs: Diminished, Normal air movement, No rhonchi, No wheeze, No rales Cardiovascular: Regular rate, Regular Rhythm, Normal S1, Normal S2, No murmurs Abdomen: Soft, Non Tender, Non-Distended, No Hepato-splenomegaly Extremities: Edema, Capillary Refill Less than 3 Seconds Skin: No rashes, No breakdown Musculoskeletal: No Tenderness to Palpation of Joints or Extremities Neurological: No focal neurological deficits, Motor Exam 5/5 strength throughout, Sensory exam intact to light touch and pain Psych/Mental Status: Normal Affect, Appropriate Assessment & Plan Assessment/Plan (1) Cirrhosis of liver: QUALIFIERS: Hepatic cirrhosis type: unspecified hepatic cirrhosis Ascites presence: with ascites Qualified Code(s): K74.60 - Unspecified cirrhosis of liver; R18.8 - Other ascites PLAN: He was apparently normal 6 months ago, when he noticed insidious onset of painless?abdominal distension, which was gradually progressive till the date of?examination. He had marginal improvement in his symptom for few weeks with some medications given by a doctor, however he had progressive /?gradual distension of abdomen-thereafter ? On stopping his?medications. Initially he did not have any leg swelling, but for?last one month ( 5months after onset of Abd. Distension) he has developed leg swelling on both sides?,more in the?evening hrs,?and is gradually progressing,without oliguria , hematuria or?facial puffiness. ? Cirrhosis of liver?with portal hypertension secondary to cardiogenic ascites. However he would need an ultrasound the heart to look for signs of portal hypertension and/or right heart failure. He should be evaluated for amyloidosis, sarcoidosis, hemochromatosis that can all be associated with heart failure. He should also be evaluated for autoimmune hepatitis, primary sclerosing cholangitis and primary biliary cirrhosis. He has not had any travel outside of the country so I do not think about tuberculosis but he will also be checked with a QuantiFERON gold. He will also need to be check for hepatocellular carcinoma and he will need a diagnostic and therapeutic paracentesis to look for peritoneal carcinomatosis and a SAG gradient to see if he has cardiogenic cirrhosis which would yield a low SAG gradient with high protein in the ascitic fluid.. (2) Shortness of breath: PLAN: Plan He appears to have the clinical findings of a dilated cardiomyopathy with biventricular failure. His natruretic peptide is elevated and he has elevated jugular venous distention. The above is likely secondary to his tachycardia as well as possible underlying coronary artery disease. * I would recommend obtaining an echocardiogram in a.m. to assess his systolic function and exclude any other valvular heart disease. 02/21/2024-patient had 8.5 L removed which is approximately 17-1/2 pounds from his large bowel paracentesis. He also underwent percutaneous liver biopsy. The fluid from the paracentesis albumin is pending to calculate patient's SAG gradient on. I suspect that this is either from CHEN or congestive hepatopathy resulting in cirrhosis as his cardiac echo today showed severe hypokinesis with mild TR mild to moderate MR and dilated left atrium. His ejection fraction was also determined to be 10%. He is on diuretic therapy. His kidney function seems to be stable. Patient continued to improve. Hopefully will be able to titrate off his diuretics so he would not need frequent paracentesis. He has not shown any signs of encephalopathy so he may be a good candidate for TIPS procedure. Charges/Coding Visit Charges Inpatient E&M: 70502 [facility] Hosp L3
[2024-02-21] MEDS: Ondansetron 4 MG/2 ML Vial IV (22:18)
[2024-02-21 23:06] LABS: Magnesium 2.1 mg/dL (1.6-2.6); Phosphorus 3.7 mg/dL (2.5-4.9)
[2024-02-22] VITALS (11 sets, daily range): BP systolic 82–108; BP diastolic 53–95; PULSE 97–118; RESP 14–18; TEMP 36.2–36.6; O2SAT 95–99; BMI 25.7; BMI 26.6
--- NOTE | 2024-02-22 08:44 | PN.CARD_ITS ---
Subjective Subjective Patient seen and evaluated. Objective Data Vital Signs: Vital Signs Temp Pulse Resp BP Pulse Ox O2 Del Method O2 Flow Rate 97.2 F L 97 14 106/75 97 Nasal Cannula 2 02/22/24 03:30 02/22/24 03:30 02/22/24 03:30 02/22/24 03:30 02/22/24 03:30 02/22/24 03:30 02/22/24 03:30 Oxygen Flow Rate (L/min) 2 Oxygen Delivery Method Nasal Cannula Weight: 189 lb 9.6 oz Body Mass Index (BMI) 25.7 Intake & Output: Intake and Output for Last 24 Hours 02/20/24 02/21/24 02/22/24 23:59 23:59 23:59 Intake Total 263.58 / 278.58 537.42 / 537.42 0 / 0 Output Total 1000 / 1000 73501 / 15824 0 / 0 Balance -736.42 / -721.42 -55208.58 / -09038.58 0 / 0 Lab / Micro Data 02/21/24 05:35 02/21/24 05:35 Labs: Laboratory Results - last 24 hr 02/21/24 00:03: Phosphorus 3.7, Magnesium 2.1 02/21/24 09:31: Fluid Source PARACENTESIS, Fluid Color YELLOW, Fluid Appearance CLEAR, Fluid WBC 0.252, Fluid RBC 135, Fluid Tot Cell Count 0.299, Fld Polynuclear WBCs # 0.054, Fld Polynuclear WBCs % 21.4, Fluid Mononuclear WBCs 0.198, Fld Mononuclear WBCs % 78.6, Fluid Neutrophils 35, Fluid Lymphocytes 26, Fluid Monocytes 13, Fluid Macrophages 20, Fld Mesothelial Cells 6, Fl Pathologist Comment May follow, Fluid Glucose 112 H, Fluid Total Protein 3.8, Fluid LDH 91, Fluid Comment 2 SEE COMMENT Micro: Microbiology 02/21/24 09:31 Fluid - Paracentesis (Abd) Gram Stain - Final Rhythm Strip Rhythm Strip: Atrial flutter Rate: 121 Cardiology Labs/Tests 02/21/24 00:03: Phosphorus 3.7, Magnesium 2.1 Rhythm: EKG: ECHO: Stress Test: Cardiac Cath: PCI: CT Surgery: Holter monitor: EPS: PPM: CXR: Chest CT Scan: Radiography Diagnostic Testing: Radiology Impression Paracentesis Ultrasound 02/20/24 17:55 IMPRESSION: Ultrasound guided paracentesis. Electronically Signed: Gerber Jovel MD at 9:59 EDT , Biopsy CT 02/21/24 07:32 IMPRESSION: 1. CT directed core needle biopsy of the liver, using CT image guidance with image documentation as described. 2. Conscious Sedation protocol utilized with independent monitoring. Electronically Signed: Gerber Jovel MD at 11:52 EDT , Physical Exam Const alert, oriented x3 and no apparent distress General Appearance: cooperative HEENT hearing grossly normal bilaterally Head and Scalp: atraumatic Eyes EOMs intact bilaterally Neck General: normal visual inspection Chest inspection of chest normal and palpation of chest normal Resp normal respiratory effort Auscultation: rales Cardio S1 normal heart sound and S2 normal heart sound Jugular Venous Distention: JVD Rhythm: abnormal rhythm irregularly irregular GI GI Narrative: Distended abdomen with ascites Palpation: hepatomegaly Extremity normal capillary refill General Extremity: edema bilateral Peripheral Pulses: Yes pulses 2+ throughout and femoral pulses present Skin no rashes or lesions noted Neuro oriented x3 and CN's II-XII intact bilaterally Psych Appearance: grossly normal and appropriate Assessment & Plan Assessment/Plan (1) Dilated cardiomyopathy: PLAN: He appears to have the clinical findings of a dilated cardiomyopathy with biventricular failure. His echocardiogram demonstrated a dilated ventricle with the right and left sides dilated. His pulmonary pressures are underestimated because his right ventricle is still hypokinetic. * His estimated ejection fraction is noted to be 10 to 15% and the plan will be as follows: * Start carvedilol and titrate to maximum dose * Start empagliflozin * Start Entresto * Continue Lasix * Will need to repeat his echocardiogram in 6 weeks to 3 months and if there is no improvement he may need to be considered for an implantable defibrillator after his coronaries have been evaluated. This can all be done as an outpatient (2) Elevated troponin: PLAN: He does have an elevated troponin which is likely demand mediated. (3) Atrial flutter: QUALIFIERS: Atrial flutter type: typical Qualified Code(s): I48.3 - Typical atrial flutter PLAN: He appears to have an atrial flutter with a 2-1 conduction. The rate should be better controlled with beta-nilson utilizing carvedilol 12.5 mg twice a day. If he has undergone all his GI workup he may be considered for starting Eliquis 5 mg a day (4) Stented coronary artery: PLAN: He does have previous coronary artery disease status post coronary bypass surgery, status post cardiac catheterization as noted above and stenting of his ramus intermedius as well as his right coronary artery. At some point he will need to have this evaluated by either noninvasive or invasive means. (5) Essential hypertension: PLAN: His blood pressure appears to be under fair control at this time. Will optimize his antihypertensives taking to cognizance his renal dysfunction at this time. (6) H/O coronary artery bypass surgery: PLAN: He is status post coronary bypass surgery as noted above. PLAN: Plan I spent a 20 minutes amount of time explaining all the above to the patient and his family.
[2024-02-22] MEDS: 0.9% Saline Lock 10 ML Syringe IV (09:41)
[2024-02-22] MEDS: Empagliflozin 10 MG Tablet PO (09:41)
[2024-02-22] MEDS: Furosemide 40 MG/4 ML Vial IV (09:41)
[2024-02-22] MEDS: SACUBITRIL/VALSARTAN 24/26 MG TABLET 1 EACH PO (09:41)
[2024-02-22] MEDS: Aspirin E.C. 81 MG Tablet PO (10:04)
[2024-02-22 11:10] LABS: Albumin, Body Fluid 2.4 g/dL (Not Estab.); Albumin, Body Fluid 2.5 g/dL (Not Estab.); Amylase Body Fluid 21 U/L (.)
[2024-02-22 12:16] LABS: Anion Gap 6 (5-15); BUN 29 mg/dL (7-18); BUN/Creat Ratio 20.6 RATIO (10-20); Calcium,Total 8.5 mg/dL (8.5-10.1); Chloride 105 mmol/L (98-107); Creatinine, Serum 1.41 mg/dL (0.70-1.30); EST Glomerular Filtration Rate 53 mL/min (>60); Est Glom Filt Rate - Afr Amer 64 mL/min (>60); Estimated Creatinine Clearance 52.74 ml/min; Glucose 83 mg/dL (74-106); Magnesium 2.1 mg/dL (1.6-2.6); Potassium 3.4 mmol/L (3.5-5.1); Sodium Level 140 mmol/L (136-145)
[2024-02-22] MEDS: Carvedilol 12.5 MG Tablet PO (12:32)
--- NOTE | 2024-02-22 12:49 | PCM.PN.HOSP ---
Subjective Subjective Doing well today, no issues overnight Objective Data Objective Data Vital Signs: Vital Signs Temp Pulse Resp BP Pulse Ox O2 Del Method O2 Flow Rate 97.6 F L 118 H 16 94/61 96 Room Air 2 02/22/24 12:31 02/22/24 12:31 02/22/24 12:31 02/22/24 12:31 02/22/24 12:31 02/22/24 12:31 02/22/24 03:30 Oxygen Flow Rate (L/min) 2 Oxygen Delivery Method Room Air Weight: 189 lb 9.6 oz Body Mass Index (BMI) 25.7 Intake & Output: Intake and Output for Last 24 Hours 02/21/24 02/22/24 02/23/24 03:59 03:59 03:59 Intake Total 323.58 / 338.58 477.42 / 477.42 0 / 0 Output Total 1000 / 1000 52408 / 90328 925 / 925 Balance -676.42 / -661.42 -67086.58 / -84808.58 -925 / -925 Lab / Micro Data 02/21/24 05:35 02/22/24 11:27 Labs: Laboratory Results - last 24 hr 02/20/24 09:31: Fluid Albumin 2.5 02/20/24 09:31: Fluid Albumin 2.4, Fluid Amylase 21 02/21/24 00:03: Phosphorus 3.7, Magnesium 2.1 02/22/24 11:27: Sodium 140, Potassium 3.4 L, Chloride 105, Carbon Dioxide 29.0, Anion Gap 6, BUN 29 H, Creatinine 1.41 H, Estim Creat Clear Calc 52.74, Est GFR (MDRD) Af Amer 64, Est GFR (MDRD) Non-Af 53 L, BUN/Creatinine Ratio 20.6 H, Glucose 83, Calcium 8.5, Magnesium 2.1 Micro: Microbiology 02/21/24 09:31 Fluid - Paracentesis (Abd) Gram Stain - Final Radiography Diagnostic Testing: Radiology Impression Echocardiogram 02/20/24 17:08 Interpretation Summary The left ventricular ejection fraction is 10 %. Mildly dilated left ventricle. Moderately severe (3+) eccentric mitral valve insufficiency. Mild (1+) tricuspid valve insufficiency. Compared to previous study, the left ventricular systolic function has worsened.. Ordering Physician: Ivan Mccall Referring Physician: Cliff Pardo Chi Performed By: Mallika Chen, RDCS, RVT Rhythm Strip Rhythm Strip: Atrial flutter Rate: 121 Physical Exam Narrative General: Alert, Oriented x3, Cooperative, No apparent distress HEENT: Atraumatic, PERRLA, EOMI, Normocephalic Oral: Moist Mucosa Neck: Supple, No JVD Lungs: Diminished, Normal air movement, No rhonchi, No wheeze, No rales Cardiovascular: Regular rate, Regular Rhythm, Normal S1, Normal S2, No murmurs Abdomen: Soft, Non Tender, Non-Distended, No Hepato-splenomegaly Extremities: Edema, Capillary Refill Less than 3 Seconds Skin: No rashes, No breakdown Musculoskeletal: No Tenderness to Palpation of Joints or Extremities Neurological: No focal neurological deficits, Motor Exam 5/5 strength throughout, Sensory exam intact to light touch and pain Psych/Mental Status: Normal Affect, Appropriate Assessment & Plan Assessment/Plan (1) Acute kidney injury: (2) Dilated cardiomyopathy: (3) Atrial flutter: QUALIFIERS: Atrial flutter type: typical Qualified Code(s): I48.3 - Typical atrial flutter PLAN: Plan 1. Atrial flutter with acute decompensated systolic CHF/CAD status post CABG and stent/essential HTN/HLD ? Poor outpatient follow-up ? Continue with Cardizem drip ? Echo with an EF of 10% and dilated right ventricle with severe left ventricular hypokinesis ? Continue with Lasix ? Appreciate cardiology's assistance ? Cardizem increased to 12.5 today, he was also started on Entresto and Jardiance by cardiology ? Likely that the A-flutter is what is causing the decompensation of his heart failure 2. CHEN with possible cirrhosis and ascites ? The ascites is likely related to the significant heart failure ? Appreciate gastroenterology's assistance ? Doing extensive biochemical evaluation ? Liver biopsy has been performed ? He did have a paracentesis, waiting for albumin to do the SAAG ? Post paracentesis of 8600 cc, he had some hypotension so he is received albumin DVT: SCDs Charges/Coding Visit Charges Inpatient E&M: 16168 Subs Hosp L2
[2024-02-22] MEDS: Potassium Chloride Oral Tablet 20 MEQ 40 MEQ PO (13:21)
[2024-02-22 13:53] LABS: Pathologist Comment/Body Fluid Reviewed
[2024-02-22 14:10] LABS: Anti-Centromere B Ab <0.2 AI (0.0-0.9); Anti-Chromatin <0.2 AI (0.0-0.9); Anti-Jo <0.2 AI (0.0-0.9); Anti-Mitochondrial AB <20.0 Units (0.0-20.0); Anti-Scleroderma-70 AB <0.2 AI (0.0-0.9); Anti-dsDNA Ab 1 IU/mL (0-9); RNP Ab 0.2 AI (0.0-0.9); SJOGREN'S Anti-SS-A test < 0.2 AI (0.0-0.9); SJOGREN'S Anti-SS-B test < 0.2 AI (0.0-0.9); Smith Ab <0.2 AI (0.0-0.9)
[2024-02-22 17:07] LABS: IgG, Quant 1450 mg/dL (603-1613); Immunoglobulin G, Subclass 1 889 mg/dL (248-810); Immunoglobulin G, Subclass 2 223 mg/dL (130-555); Immunoglobulin G, Subclass 3 55 mg/dL (15-102); Immunoglobulin G, Subclass 4 128 mg/dL (2-96)
[2024-02-23 00:40] VITALS: BP 82/56; PULSE 112; RESP 14; TEMP 36.7; O2SAT 99
[2024-02-23] MEDS: Carvedilol 3.125 MG TABLET PO (00:45)
[2024-02-23 02:36] VITALS: BP 85/60; PULSE 117; RESP 20; TEMP 36.5; O2SAT 96
[2024-02-23 03:07] VITALS: BMI 25.8
[2024-02-23 04:35] VITALS: BP 98/65; PULSE 104; RESP 14; TEMP 36.6; O2SAT 96
--- NOTE | 2024-02-23 06:52 | PCM.HOSP.N ---
Hospitalist Note Patient blood pressure is low. He usually stays around systolic 80s. Carvedilol decreased to 3.125 mg daily.
--- NOTE | 2024-02-23 07:36 | PN.CARD_ITS ---
Subjective Subjective Patient seen and evaluated. Appears to be doing better. Worried about low blood pressure Objective Data Vital Signs: Vital Signs Temp Pulse Resp BP Pulse Ox O2 Del Method O2 Flow Rate 97.8 F 104 H 14 98/65 96 Room Air 2 02/23/24 04:35 02/23/24 04:35 02/23/24 04:35 02/23/24 04:35 02/23/24 04:35 02/23/24 04:35 02/22/24 03:30 Oxygen Flow Rate (L/min) 2 Oxygen Delivery Method Room Air Weight: 190 lb 11.198 oz Body Mass Index (BMI) 25.8 Intake & Output: Intake and Output for Last 24 Hours 02/21/24 02/22/24 02/23/24 23:59 23:59 23:59 Intake Total 537.42 / 537.42 240 / 240 Output Total 51791 / 43112 1625 / 1625 700 / 700 Balance -58118.58 / -04621.58 -1385 / -1385 -700 / -700 Lab / Micro Data 02/21/24 05:35 02/22/24 11:27 Labs: Laboratory Results - last 24 hr 02/20/24 09:31: Fluid Albumin 2.5 02/20/24 09:31: Fluid Albumin 2.4, Fluid Amylase 21 02/20/24 19:32: IgG Total 1450, IgG1 889 H, IgG2 223, IgG3 55, IgG4 128 H, SARANYA-1 Antibody <0.2, SS-A/Ro IgG Antibody < 0.2, SS-B/La IgG Antibody < 0.2, Sm (Ye) Antibody <0.2, LEATHER HEEL BREASTER Antibody 0.2, Scl-70 Scleroderma Ab <0.2, Double Strand DNA Ab 1, Antichromatin Antibodies <0.2, Centromere B Antibody <0.2, Anti-Mitochondrial Ab <20.0 02/21/24 09:31: Fl Pathologist Comment Reviewed, Miscellaneous Cytology SEE PATHOLOGY REPORT 02/22/24 11:27: Sodium 140, Potassium 3.4 L, Chloride 105, Carbon Dioxide 29.0, Anion Gap 6, BUN 29 H, Creatinine 1.41 H, Estim Creat Clear Calc 52.74, Est GFR (MDRD) Af Amer 64, Est GFR (MDRD) Non-Af 53 L, BUN/Creatinine Ratio 20.6 H, Glucose 83, Calcium 8.5, Magnesium 2.1 Rhythm Strip Rhythm Strip: Atrial flutter Rate: 121 Cardiology Labs/Tests 02/22/24 11:27: Sodium 140, Potassium 3.4 L, Chloride 105, Carbon Dioxide 29.0, Anion Gap 6, BUN 29 H, Creatinine 1.41 H, Est GFR (MDRD) Af Amer 64, Est GFR (MDRD) Non-Af 53 L, BUN/Creatinine Ratio 20.6 H, Glucose 83, Calcium 8.5, Magnesium 2.1 Rhythm: EKG: ECHO: Stress Test: Cardiac Cath: PCI: CT Surgery: Holter monitor: EPS: PPM: CXR: Chest CT Scan: Radiography Diagnostic Testing: Radiology Impression Echocardiogram 02/20/24 17:08 Interpretation Summary The left ventricular ejection fraction is 10 %. Mildly dilated left ventricle. Moderately severe (3+) eccentric mitral valve insufficiency. Mild (1+) tricuspid valve insufficiency. Compared to previous study, the left ventricular systolic function has worsened.. Ordering Physician: Ivan Mccall Referring Physician: Cliff Pardo Chi Performed By: Mallika Chen, ROLLY, RVT Physical Exam Const alert, oriented x3 and no apparent distress General Appearance: cooperative HEENT hearing grossly normal bilaterally Head and Scalp: atraumatic Eyes EOMs intact bilaterally Neck General: normal visual inspection Chest inspection of chest normal and palpation of chest normal Resp normal respiratory effort Auscultation: rales Cardio S1 normal heart sound and S2 normal heart sound Jugular Venous Distention: JVD Rhythm: abnormal rhythm irregularly irregular GI GI Narrative: Distended abdomen with ascites Palpation: hepatomegaly Extremity normal capillary refill General Extremity: edema bilateral Peripheral Pulses: Yes pulses 2+ throughout and femoral pulses present Skin no rashes or lesions noted Neuro oriented x3 and CN's II-XII intact bilaterally Psych Appearance: grossly normal and appropriate Assessment & Plan Assessment/Plan (1) Dilated cardiomyopathy: PLAN: He appears to have the clinical findings of a dilated cardiomyopathy with biventricular failure. His echocardiogram demonstrated a dilated ventricle with the right and left sides dilated. His pulmonary pressures are underestimated because his right ventricle is still hypokinetic. * His estimated ejection fraction is noted to be 10 to 15% and the plan will be as follows: * Start carvedilol and titrate to maximum dose * Start empagliflozin * Start Entresto... May need to hold off till office visit due to hypotension * Continue Lasix * Will need to repeat his echocardiogram in 6 weeks to 3 months and if there is no improvement he may need to be considered for an implantable defibrillator after his coronaries have been evaluated. This can all be done as an outpatient (2) Elevated troponin: PLAN: He does have an elevated troponin which is likely demand mediated. (3) Atrial flutter: QUALIFIERS: Atrial flutter type: typical Qualified Code(s): I48.3 - Typical atrial flutter PLAN: He appears to have an atrial flutter with a 2-1 conduction. The rate should be better controlled with beta-nilson utilizing carvedilol 6.25 mg twice a day. (4) Stented coronary artery: PLAN: He does have previous coronary artery disease status post coronary bypass surgery, status post cardiac catheterization as noted above and stenting of his ramus intermedius as well as his right coronary artery. At some point he will need to have this evaluated by either noninvasive or invasive means. (5) Essential hypertension: PLAN: His blood pressure appears to be under fair control at this time. Will optimize his antihypertensives taking to cognizance his renal dysfunction at this time. (6) H/O coronary artery bypass surgery: PLAN: He is status post coronary bypass surgery as noted above. PLAN: Plan I spent a 20 minutes amount of time explaining all the above to the patient and his family.
[2024-02-23 09:36] VITALS: BP 91/64; PULSE 115; RESP 18; TEMP 36.3; O2SAT 97
[2024-02-23] MEDS: Empagliflozin 10 MG Tablet PO (10:01)
[2024-02-23] MEDS: Aspirin E.C. 81 MG Tablet PO (10:01)
[2024-02-23] MEDS: Carvedilol 6.25 MG Tablet PO (10:04)
[2024-02-23] MEDS: Furosemide 40 MG Tablet PO (10:05)
[2024-02-23 11:10] VITALS: BP 96/69; PULSE 115
--- NOTE | 2024-02-23 12:18 | DCINST_ITS ---
Discharge Instructions Diet Discharge Diet: Low fat / Low cholesterol and 6 Cup Fluid Restriction Activity Discharge Activity: Return to Normal Activity Dressing / Incision Call your doctor if you observe: Fever of 101 or Higher, Shortness of breath, Dizziness, Fainting spells, Swelling in the ankles, Chest pain and Increased palpitations (irregular heartbeat) Follow Up Care Test Results: Test results from this visit will be discussed in further detail at your follow- up appointment, if applicable. Discharge Plan Admission Admit Date/Time: 02/20/24 14:23 Attending Provider: Ravi Peralta Primary Care Provider: Cliff Pardo Chi Consulting Providers: Ivan Mccall; Brayan Mata Instructions Patient Instructions: Heart Failure Meds, Heart Failure: Tracking Your Weight, Heart Failure Make Changes Diet, ED CHF Left Side Discharge Orders/Prescriptions Prescriptions: New carvedilol 6.25 mg Tablet 6.25 mg PO 0800,1999 30 Days Qty: 60 1RF Jardiance 10 mg Tablet 10 mg PO DAILY 30 Days Qty: 30 1RF furosemide 40 mg Tablet 40 mg PO BIDLX 30 Days Qty: 60 1RF Continued aspirin [Adult Aspirin Regimen] 81 mg tablet,delayed release (DR/EC) 81 mg PO DAILY Discontinued furosemide 40 mg tablet 40 mg PO DAILY Patient Comments: PT WAS TAKING THIS PREVIOUSLY A PRN MED. DR RECENTLY HAD THEM START TAKING THIS TWICE DAILY FOR 5 DAYS. Rx Instructions: TAKE ONE TABLET BY MOUTH TWICE DAILY FOR 5 DAYS. START DATE: 02/19/2024 Referrals / Follow Up: Ivan Mccall MD [Med Staff - Active Staff] - Within 1 Month Cliff Pardo Chi, MD [Primary Care Provider] - Within 1 Week Gerald Carroll DO [Med Staff - Active Staff] - Within 1 Month Disposition Disposition (needs filled in before D/C Order can be placed): Home, Self Care
--- NOTE | 2024-02-23 13:49 | DS.PCM_ITS ---
Providers Date of Admission: 02/20/24 Primary Care Physician: Dr. Cliff Pardo MD Consultations 02/20/24 23:48 Consult: Cardiology Routine Consulting Provider: Ivan Mccall Reason for Consult: elevated troponin EMERGENT Consult: No MD Notified: Yes Date Notified: 02/20/24 Time Notified: 23:48 Method of Notification: Verbal Reason For Visit: ATRIAL FLUTTER Diagnosis Discharge Diagnosis (1) Dilated cardiomyopathy: Status: Acute Code(s): I42.0 - Dilated cardiomyopathy (2) Elevated troponin: Status: Acute Code(s): R79.89 - Other specified abnormal findings of blood chemistry (3) Atrial flutter: Status: Acute Code(s): I48.92 - Unspecified atrial flutter Qualifiers: Atrial flutter type: typical Qualified Code(s): I48.3 - Typical atrial flutter (4) Stented coronary artery: Status: Chronic Code(s): Z95.5 - Presence of coronary angioplasty implant and graft (5) Essential hypertension: Status: Acute Code(s): I10 - Essential (primary) hypertension (6) H/O coronary artery bypass surgery: Status: Chronic Code(s): Z95.1 - Presence of aortocoronary bypass graft Medications at Discharge Home Medications aspirin 81 mg tablet,delayed release (Adult Aspirin Regimen) 81 mg PO DAILY 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 Associated with his symptoms is distention of his belly and shortness of breath. He has swelling of his bilateral lower legs. He saw the [facility] and was noted to have elevated TSH. Subsequently he was sent to his PCP for further workup. His PCP recommended that patient come to the emergency department for further evaluation. Because of elevated bilirubin patient was supposed to see soft hat binder, Dr. Carroll on 02/22/2024. At the emergency department patient was found to be in atrial a flutter. He was given Cardizem IV bolus. Also his troponin was severely elevated. Hospital Course: 1. Atrial flutter with acute decompensated systolic CHF/CAD status post CABG and stents/essential HTN/HLD?69-year-old male presents to the hospital with increased shortness of breath as well as abdominal distention. He had an echo which demonstrated an EF of 10% with a dilated right ventricle and severe left ventricular hypokinesis. He had 8 L of fluid drained from his abdomen with his first paracentesis that demonstrated a SAG gradient of 1 to 1.1 consistent with portal hypertension. He was started on diuretics as well as Entresto and Coreg. He did have some soft blood pressures so the Entresto had to be discontinued and his Coreg was titrated to 6.25 mg and his Lasix was increased to 40 mg p.o. twice daily. He was also started on Jardiance given the systolic dysfunction on echo. Appreciate cardiology's assistance and they felt that he was stable for discharge today with outpatient follow-up and repeat echo in 6 weeks to 3 months. I recommend he follow-up with his PCP in 3 to 5 days and with cardiology within the next couple of weeks. I discussed with him and his the plan for discharge today and he expressed understanding of the risks and benefits of going home and would like to go home today. It was felt that the patient's decompensated heart failure was likely related to his a flutter and at this time did not recommend cardiac catheterization. Given the A-flutter he was started on Eliquis 5 mg p.o. twice daily on discharge as he did have a liver biopsy this admission. 2. CHEN with possible cirrhosis and ascites?paracentesis was large-volume at 8.6 L and he did receive 25 g of albumin post paracentesis to help support his blood pressure. Fluid studies so far have been fairly unremarkable however his SAG gradient was anywhere between 1 and 1.1 consistent though borderline with portal hypertension given his heart failure. Liver biopsy and other autoimmune and biomarkers have been obtained and pending. He will need to follow-up with gastroenterology on discharge to obtain results of these labs. Physical Exam Narrative General: Alert, Oriented x3, Cooperative, No apparent distress HEENT: Atraumatic, PERRLA, EOMI, Normocephalic Oral: Moist Mucosa Neck: Supple, No JVD Lungs: Diminished, Normal air movement, No rhonchi, No wheeze, No rales Cardiovascular: Regular rate, Regular Rhythm, Normal S1, Normal S2, No murmurs Abdomen: Soft, Non Tender, Non-Distended, No Hepato-splenomegaly Extremities: Edema, Capillary Refill Less than 3 Seconds Skin: No rashes, No breakdown Musculoskeletal: No Tenderness to Palpation of Joints or Extremities Neurological: No focal neurological deficits, Motor Exam 5/5 strength throughout, Sensory exam intact to light touch and pain Psych/Mental Status: Normal Affect, Appropriate Weight / BMI Weight Weight: 190 lb 11.198 oz Body Mass Index (BMI) 25.8 ABG / Lab / Microbiology Data 02/21/24 05:35 02/22/24 11:27 Laboratory: Laboratory Results - last 24 hr 02/20/24 19:32: IgG Total 1450, IgG1 889 H, IgG2 223, IgG3 55, IgG4 128 H, SARANYA-1 Antibody <0.2, SS-A/Ro IgG Antibody < 0.2, SS-B/La IgG Antibody < 0.2, Sm (Ye) Antibody <0.2, SQUARE SHEAR OPERATOR Antibody 0.2, Scl-70 Scleroderma Ab <0.2, Double Strand DNA Ab 1, Antichromatin Antibodies <0.2, Centromere B Antibody <0.2, Anti-Mitochondrial Ab <20.0 02/21/24 09:31: Fl Pathologist Comment Reviewed, Miscellaneous Cytology SEE PATHOLOGY REPORT Microbiology: Microbiology 02/21/24 09:31 Fluid - Paracentesis (Abd) Gram Stain - Final 02/21/24 09:31 Fluid - Paracentesis (Abd) Body Fluid Culture - Preliminary No growth-Final to follow 02/21/24 09:31 Fluid - Paracentesis (Abd) Anaerobic Culture - Preliminary No growth in 48 hours. D/C Instructions Discharge Diet: Low fat / Low cholesterol and 6 Cup Fluid Restriction Call your doctor if you observe: Fever of 101 or Higher, Shortness of breath, Dizziness, Fainting spells, Swelling in the ankles, Chest pain and Increased palpitations (irregular heartbeat) Meaningful Use Info Meaningful Use Meaningful Use Diagnoses (Choose all that apply): None applicable Ischemic Stroke Statin Dosing Therapy Reference: STATIN DOSE THERAPY REFERENCE: * Patients > 75 years receive moderate or high dose statin therapy. * Patients 75 years or YOUNGER should receive HIGH intensity statin dose unless contraindicated. You will be required to document reason for non-treatment if statin daily dose does not meet guidelines. HIGH DOSE STATIN THERAPY DAILY Atorvastatin > than or = to 40 mg Rosuvastatin > than or = to 20 mg Amlodipine + Atorvastatin > than or = to 2.5/40 mg Ezetimibe + Simvastatin 10/80 mg Simvastatin 80mg Discharge Plan Admission Admit Date/Time: 02/20/24 14:23 Attending Provider: Ravi Peralta Primary Care Provider: Cliff Pardo Chi Consulting Providers: Ivan Mccall; Brayan Mata Instructions Patient Instructions: Heart Failure Meds, Heart Failure: Tracking Your Weight, Heart Failure Make Changes Diet, ED CHF Left Side Discharge Orders/Prescriptions Prescriptions: New carvedilol 6.25 mg Tablet 6.25 mg PO 00,1999 30 Days Qty: 60 1RF Jardiance 10 mg Tablet 10 mg PO DAILY 30 Days Qty: 30 1RF furosemide 40 mg Tablet 40 mg PO BIDLX 30 Days Qty: 60 1RF Eliquis 5 mg tablet 5 mg PO BID Qty: 60 0RF Continued aspirin [Adult Aspirin Regimen] 81 mg tablet,delayed release (DR/EC) 81 mg PO DAILY Discontinued furosemide 40 mg tablet 40 mg PO DAILY Patient Comments: PT WAS TAKING THIS PREVIOUSLY A PRN MED. RECENTLY HAD THEM START TAKING THIS TWICE DAILY FOR 5 DAYS. Rx Instructions: TAKE ONE TABLET BY MOUTH TWICE DAILY FOR 5 DAYS. START DATE: 02/19/2024 Referrals / Follow Up: Ivan Mccall MD [Med Staff - Active Staff] - 03/14/24 9:30 am ( has no appointments available. Appointment is with Stefanie Dunaway N.P.) Friend,DO Gerald [Med Staff - Active Staff] - 03/26/24 11:30 am Cliff Pardo Chi, MD [Primary Care Provider] - Within 1 Week (Dr Arevalo's office is closed today. Please call to schedule follow up appointment.) Disposition Disposition (needs filled in before D/C Order can be placed): Home, Self Care Charges/Coding Visit Charges Inpatient E&M: 37887 Disch Hosp >30min
--- NOTE | 2024-02-23 14:56 | CASEMGMT ---
Patient has order for discharge. Patient discharging home on Jardiance and Eliquis, Jardiance copay is $357.13 and Eliquis savings card was applied for Eliquis. RN CM updated nursing regarding cost of Jardiance, who updated court manager that it is too expensive for patient. RN CM updated patient regarding copay and savings card. Patient and denied further needs or concerns. Patient and had no further questions.
[2024-02-24 06:13] LABS: AFP, Tumor Marker < 1.8 ng/mL (0.0-8.4); Albumin 3.4 g/dL (2.9-4.4); Alpha-1-Globulins 0.4 g/dL (0.0-0.4); Alpha-2-Globulins 0.7 g/dL (0.4-1.0); Angiotensin Convert Enzyme 43 U/L (14-82); Anti-Smooth Muscle ABS 16 Units (0-19); Carcinoembryonic Antigen 1.1 ng/mL (0.0-4.7); Ceruloplasmin 40.4 mg/dL (16.0-31.0); Copper, Serum or Plasma 181 ug/dL (69-132); Cytoplasmic Ab (C-ANCA) <1:20 titer (Neg:<1:20); Deamidated Gliadin IgA 5 units (0-19); Deamidated Gliadin IgG 6 units (0-19); Endomysial Antibody IgA Negative (Negative); Gamma Globulin 1.3 g/dL (0.4-1.8); HEPATITIS B SURFACE AG Negative (Negative); Hep C Antibodies Non Reactive (Non Reactive); Hepatitis A IgM Antibody Negative (Negative); Hepatitis B Core AB IgM Negative (Negative); Immunoglobulin A 227 mg/dL (61-437); Immunoglobulin G 1412 mg/dL (603-1613); Immunoglobulin M 57 mg/dL (15-143); PROEL- TOTAL PROTEIN 6.8 g/dL (6.0-8.5); Perinuclear Ab (P-ANCA) <1:20 titer (Neg:<1:20); QNTFERON TB Mitogen Value 3.96 IU/mL (.); QNTFERON TB Nil Value 0 IU/mL (.); QNTFERON TB1+ Ag Value 0 IU/mL (.); QNTFERON TB2+ Ag Value 0 IU/mL (.); QNTIFERON TB Positive Criteria Negative (Negative); Transferrin 230 mg/dL (177-329); t-Transglutaminase IgA <2 U/mL (0-3)
[2024-02-25 00:06] LABS: Aldolase 7.1 U/L (3.3-10.3); Immunoglobulin A 237 mg/dL (61-437); Immunoglobulin E 1045 IU/mL (6-495); Immunoglobulin G 1489 mg/dL (603-1613); Immunoglobulin M 51 mg/dL (15-143)
== END 2024-02-23 15:52 | disposition home or self-care (01) | DRG 308 ==
LOC: ED 14:09 → PCU 15:29
PROVIDERS: Internal Medicine; Internal Medicine Gastroenterology; Admitting Provider Hospitalist; Emergency Provider Emergency Medicine; PCP Family Medicine Geriatric Medicine; Visit Provider Family Medicine
DX: I48.3 Typical atrial flutter (principal); I50.23 Acute on chronic systolic (congestive) heart failure; N17.9 Acute kidney failure, unspecified; K76.6 Portal hypertension; R18.8 Other ascites; I50.82 Biventricular heart failure; I11.0 Hypertensive heart disease with heart failure; I42.0 Dilated cardiomyopathy; K75.81 Nonalcoholic steatohepatitis (NASH); K74.60 Unspecified cirrhosis of liver; E78.00 Pure hypercholesterolemia, unspecified; I25.10 Atherosclerotic heart disease of native coronary artery without angina pectoris; I25.2 Old myocardial infarction; I95.81 Postprocedural hypotension; Z79.82 Long term (current) use of aspirin; Z79.899 Other long term (current) drug therapy; Z95.1 Presence of aortocoronary bypass graft; Z95.5 Presence of coronary angioplasty implant and graft; R79.89 Other specified abnormal findings of blood chemistry
CPT/HCPCS: 36415; 49083; 71045; 74177; 77012; 80048; 80053; 80061; 80074; 82040; 82042; 82085; 82105; 82140; 82150; 82164; 82378; 82390; 82525; 82550; 82728; 82784; 82785; 82787; 82945; 83036; 83516; 83540; 83550; 83615; 83690; 83735; 83880; 84100; 84157; 84165; 84443; 84466; 84484; 85025; 85610; 85730; 86037; 86225; 86235; 86255; 86334; 86480; 87070; 87075; 87205; 88108; 88305; 88307; 88312; 88313; 89050; 93005; 93306; 94668; 97161; 99156; 99283; P9047; Q9967; A4216; J1940; J2405

== ENCOUNTER 2024-02-24 04:37 | Observation (INO) | payer MEDICARE, OTHER, SELFPAY ==
[2018-07-27 13:33] VITALS: BMI 27.7
[2024-02-24] VITALS (19 sets, daily range): BP systolic 90–120; BP diastolic 56–87; PULSE 76–120; RESP 16–20; TEMP 36.5–36.9; O2SAT 95–100; BMI 26.9; BMI 26.2
--- NOTE | 2024-02-24 04:54 | EKG12_ITS ---
Test Reason : DYSRHYTHMIA Blood Pressure : / mmHG Vent. Rate : 111 BPM Atrial Rate : 000 BPM P-R Int : 000 ms QRS Dur : 126 ms QT Int : 408 ms P-R-T Axes : 000 088 -47 degrees QTc Int : 554 ms Critical Test Result: Long QTc POSSIBEL ATRIAL FLUTTER Premature ventricular complexes Non-specific intra-ventricular conduction block T wave abnormality, consider inferior ischemia Abnormal ECG Confirmed by Duke Kee ([id number]), food expeditor PADMINI MEDINA ([id number]) on 02/26/2024 9:31:54 AM Referred By: Confirmed By:Duke Kee
--- NOTE | 2024-02-24 04:57 | EDS_ITS ---
HPI History of Present Illness Chief Complaint: Shortness of Breath Narrative Narrative: 69-year-old male recently released from the hospital with diagnosis of dilated cardiomyopathy, CHF, liver cirrhosis, ascites, and atrial flutter. He also had an NSTEMI with elevated troponins. He states that he was released from the hospital at 4 PM yesterday evening after a 4-day stay. They were having problems controlling his heart rate and while he was on a carvedilol drip, they were having problems titrating his oral medication because he would become hypotensive if the dose were too high. He states that as an inpatient they also did a liver biopsy, and did have paracentesis and removed a lot of fluid from his abdomen. He states that he awoke that yesterday evening he took his medication, then went to bed. He awoke in the middle the night not feeling well. He was short of breath, and he had his pulse oximeter on and he states that his pulse was reading 10 bpm, or up to 20. He had a difficult time obtaining a blood pressure as well. He states that this lasted approximately 20 minutes. As he was not feeling well and he states he had a very low heart rate, he presents to the emergency department for evaluation. [facility] Medical History Kidney stones Non-smoker Coronary artery disease Hypertension Pure hypercholesterolemia Essential hypertension Atherosclerosis of coronary artery bypass graft without angina pectoris Non-ST elevation (NSTEMI) myocardial infarction White coat syndrome with hypertension RBBB Premature ventricular contraction Nonrheumatic aortic valve insufficiency Atherosclerosis of coronary artery of [place] heart without angina pectoris Non-alcoholic fatty liver disease Home Medications ?Medication ?Instructions ?Recorded ?Last Taken ?Type aspirin 81 mg tablet,delayed [address] [facility] [place] 05/24/17 02/20/24 History release (Adult Aspirin Regimen) apixaban 5 mg tablet (Eliquis) 5 mg PO BID #60 tabs 02/23/24 Unknown Rx carvedilol 6.25 mg tablet 6.25 mg PO 0800,1999 30 days #60 02/23/24 Unknown Rx tabs empagliflozin 10 mg tablet 10 mg PO DAILY 30 days #30 tabs 02/23/24 Unknown Rx (Jardiance) furosemide 40 mg tablet 40 mg PO BIDLX 30 days #60 tabs 02/23/24 Unknown Rx Allergy/AdvReac Type Severity Reaction Status Date / Time pravastatin sodium (From Allergy Unknown Verified 02/24/24 04:38 Pravachol) carvedilol (From Coreg) AdvReac Intermediate diarrhea Verified 02/24/24 04:38 atorvastatin calcium (From AdvReac Pain in Verified 02/24/24 04:38 Lipitor) joints gemfibrozil AdvReac myalgia Verified 02/24/24 04:38 Family History Mother CAD (coronary artery disease) Surgical History History of coronary artery stent placement History of esophagogastroduodenoscopy (EGD) (~2014) H/O coronary artery bypass surgery (~08/12/15) Social History Smoking Status: Never smoker alcohol intake: current details: rare substance use type: does not use ROS ROS ED ROS Narrative Review of systems, focused, positive for general malaise and fatigue. Reported bradycardia as low as 20 or even 10 bpm. Difficulty obtaining blood pressure. No chest pain. He felt short of breath when he awoke. No nausea or vomiting. EXAM Physical Exam Narrative Exam Narrative: Afebrile. Vital signs noted. Nontoxic-appearing. Cardiovascular examination reveals an irregularly irregular tachycardia at 110 bpm. Lungs are clear to auscultation bilaterally. HEENT examination is unremarkable except for mild scleral icterus. Abdomen is soft but distended with ascites. Positive bowel sounds. Bilateral lower extremity edema, symmetric. Const Vital Signs: 02/24/24 04:38 02/24/24 04:38 02/24/24 05:38 Temperature 98.4 F Temperature Source Oral Pulse Rate 110 H 112 H Respiratory Rate 19 H 20 H Respiratory Effort Normal Non-Labored Respiratory Depth Normal Respiratory Pattern Normal Blood Pressure 114/60 120/87 H Blood Pressure Mean 78 98 Pulse Ox 98 96 Oxygen Delivery Method Room Air Room Air Room Air 02/24/24 06:00 Temperature Temperature Source Pulse Rate 113 H Respiratory Rate 20 H Respiratory Effort Respiratory Depth Respiratory Pattern Blood Pressure 102/74 Blood Pressure Mean 83 Pulse Ox 96 Oxygen Delivery Method Room Air MDM MDM MDM Narrative Medical decision making narrative: I reviewed the patient's prior ED visit on the eighth, and his inpatient visit and consultations. Differential diagnosis does include symptomatic bradycardia versus CHF versus pneumonia/hospital-acquired pneumonia. History and physical does not support pneumonia. In discussion with the patient and his , they are concerned about his low heart rate and how they can take the carvedilol, if they are supposed to take it at 8:00 in the morning. They are concerned that if he takes it, that he will have another episode of extreme bradycardia and difficulty finding blood pressure. I do not feel IV fluids are indicated given that in review of his cardiovascular consultation, he has an EF of 10 to 15%. I reviewed his laboratory work and he has a normal white count 7.6 with hemoglobin 13.1, hematocrit 41.4, platelet count 348. Sodium is normal at 140, potassium 4.1 with chloride slightly elevated at 108 which is nonspecific. BUN is 30 with creatinine 1.36 but improved over previous and this seems to be his baseline with history of chronic kidney disease. Glucose 127 with a normal anion gap of 5. AST is normal at 33 with ALT of 53, improved over previous when compared to prior laboratories. Chest x-ray 1 view interpreted by myself i ndependently shows chronic changes but no pneumothorax, no consolidation. I reviewed the radiology report which confirms my independent interpretation. Upon repeat examination, he states he feels improved. He felt his pulse ox and heart rate was not picking up as well as his blood pressure after he had taken his medication at 8 PM yesterday. It was approximately 7 hours afterwards when he awoke and was having this problem. He and his are hesitant for him to take the morning dose at 8:00. In discussion with the patient and his , they are comfortable with him taking the medication about an hour to an hour and a half earlier than he is supposed to while he is here in the emergency department, where he can be monitored on a residential monitor to ensure that he does not drop his blood pressure his heart rate significantly. At this point in time, patient will be signed out to the oncoming physician to make final disposition which I anticipate would be discharge. Patient can be discussed with cardiology as needed. Currently, patient is in stable condition. History & Record Review Discussion w/independent historian: Patient and Family Lab Data Attestation: I reviewed the patient's lab results. Labs: Laboratory Results - last 24 hr 02/24/24 04:45 WBC 7.6 RBC 4.18 L Hgb 13.1 Hct 41.4 MCV 99.0 H MCH 31.3 MCHC 31.6 L RDW Std Deviation 56.2 H RDW Coeff of Omari 15.6 H Plt Count 348 MPV 8.9 Immature Gran % (Auto) 0.400 Neut % (Auto) 72.7 H Lymph % (Auto) 11.6 L [place] % (Auto) 7.5 Eos % (Auto) 6.7 H Baso % (Auto) 1.1 H Absolute Neuts (auto) 5.5 Absolute Lymphs (auto) 0.88 Nucleated RBC % 0 Sodium 140 Potassium 4.1 Chloride 108 H Carbon Dioxide 27.0 Anion Gap 5 BUN 30 H Creatinine 1.36 H Estim Creat Clear Calc 54.68 Est GFR (MDRD) Af Amer 66 Est GFR (MDRD) Non-Af 55 L BUN/Creatinine Ratio 22.1 H Glucose 127 H Calcium 8.8 Total Bilirubin 1.20 H AST 33 ALT 53 Alkaline Phosphatase 107 Total Protein 6.3 L Albumin 2.9 L Globulin 3.4 Albumin/Globulin Ratio 0.9 Radiography Diagnostic Testing: Clinical Impression(s) from Imaging Studies Chest X-Ray 02/24/24 05:13 IMPRESSION: Bilateral peripheral chronic atelectasis or scarring. CT chest could better characterize as clinically indicated. Sternotomy changes with persistent small layering right effusion. Electronically Signed: Mikey Mooney MD at 6:23 EDT Reading Location ID and State: [address] [place] [address] Tel , Service support , Management Discussion w/another healthcare provider: [employer] Discharge Plan Triage Chief Complaint: Shortness of Breath ED Provider: Madan Meek Dx/Rx/DC Orders Clinical Impression: Generalized weakness, SOB (shortness of breath), Atrial flutter, CHF (congestive heart failure), Cirrhosis of liver Instructions: ED Atrial Flutter, ED Heart Failure, Congestive (CHF), ED Cirrhosis, ED Dyspnea, ED Weakness (Uncertain Cause) Prescriptions: No Action carvedilol 6.25 mg Tablet 6.25 mg PO 0800,1999 30 Days Qty: 60 1RF Jardiance 10 mg Tablet 10 mg PO DAILY 30 Days Qty: 30 1RF furosemide 40 mg Tablet 40 mg PO BIDLX 30 Days Qty: 60 1RF Eliquis 5 mg tablet 5 mg PO BID Qty: 60 0RF aspirin [Adult Aspirin Regimen] 81 mg tablet,delayed release (DR/EC) 81 mg PO DAILY Primary Care Provider: Cliff Pardo Chi Referrals: Ivan Mccall MD [Med Staff - Active Staff] - As soon as possible Cliff Pardo Chi, MD [Primary Care Provider] - Print Language: Monegasque
[2024-02-24 05:09] LABS: Absolute Lymphocyte Count 0.88 X10^3/uL (0.83-4.51); Absolute Neutrophil Count 5.5 X10^3/uL (2.0-7.7); Basophil# 0.08 X10^3/uL; Basophil% 1.1 % (0-1); Eosinophil# 0.51 X10^3/uL; Eosinophils% 6.7 % (0-5); Hematocrit 41.4 % (40-54); Hemoglobin 13.1 g/dL (13.0-16.5); Lymphocyte # 0.88 X10^3/ul (0.83-4.51); Lymphocyte % 11.6 % (19-41); Mean Corp Hgb Conc 31.6 g/dL (32-36); Mean Corpuscular Hgb 31.3 pg (27.0-32.0); Mean Platelet Vol. 8.9 fl (6.2-12.0); Monocyte# 0.57 X10^3/uL; Monocyte% 7.5 % (0-10); NRBC Flagged by Analyzer 0 % (0-5); Neutrophil # 5.54 X10^3/uL (2.7-7.7); Neutrophil % 72.7 % (47-70); Platelet Count 348 K/mm3 (150-450); RBC Distribution Width CV 15.6 % (11.6-14.6); RBC Distribution Width SD 56.2 fl (35.1-43.9); Red Blood Count 4.18 M/mm3 (4.6-6.2); White Blood Count 7.6 K/mm3 (4.4-11.0)
--- NOTE | 2024-02-24 05:13 | RAD_ITS ---
INDICATION: shortness of breath EXAMINATION/TECHNIQUE: X-RAY - XR Chest 1 View COMPARISON: January 15, 2021. FINDINGS: LINES/DEVICES: None. LUNGS: Bilateral Peripheral linear atelectasis or scarring without significant change from prior exam. Unchanged trace right effusion. No new consolidation. No pneumothorax. MEDIASTINUM AND CARDIOVASCULAR STRUCTURES: Cardiac silhouette not enlarged. BONES AND SOFT TISSUES: Sternotomy wires are midline and intact. RAD/Chest 1 View (Portable) IMPRESSION: Bilateral peripheral chronic atelectasis or scarring. CT chest could better characterize as clinically indicated. Sternotomy changes with persistent small layering right effusion. Electronically Signed: Mikey Mooney MD at 6:23 EDT ,
[2024-02-24 05:29] LABS: ALB/GLOB Ratio 0.9 RATIO (0.9-2.4); AST(SGOT) 33 U/L (15-37); Alanine Aminotransfer ALT/SGPT 53 U/L (16-61); Albumin, Serum 2.9 g/dL (3.2-5.0); Alkaline Phosphatase 107 U/L (45-117); Anion Gap 5 (5-15); BUN 30 mg/dL (7-18); BUN/Creat Ratio 22.1 RATIO (10-20); Calcium,Total 8.8 mg/dL (8.5-10.1); Chloride 108 mmol/L (98-107); Creatinine, Serum 1.36 mg/dL (0.70-1.30); EST Glomerular Filtration Rate 55 mL/min (>60); Est Glom Filt Rate - Afr Amer 66 mL/min (>60); Estimated Creatinine Clearance 54.68 ml/min; Globulin 3.4 g/dL (2.2-4.2); Glucose 127 mg/dL (74-106); Potassium 4.1 mmol/L (3.5-5.1); Protein, Total 6.3 g/dL (6.4-8.2); Sodium Level 140 mmol/L (136-145)
[2024-02-24] MEDS: Carvedilol 6.25 MG Tablet PO (06:32)
--- NOTE | 2024-02-24 09:28 | ED.RN ---
pt declined wc on discharge. walked out of building. came back in states my passed out. pt found on ground on ed ramp. alert, pale, weak. assisted into a wc. pt states i felt fine and then it happened so fast, i got weak. lew never fallen before. pt reports being mad how he stay at hospital was earlier in the week, sent home with new rx and not seeming to help. after fwe minutes of talking pt color returned and stated he felt a little better. concerned this continues to happen at home. pt reurned to ed. talked with dr prince about episode and dr prince to re evaluate pt.
--- NOTE | 2024-02-24 16:09 | HP.PCM.HOS_ITS ---
HPI - General General Date of Admission: 02/24/24 HPI Narrative SEVERIANO HERNANDEZ, is a 69 M who presents to the hospital with dizziness. We discussed with him at length during his recent admission that the dizziness is likely given his ejection fraction of 10% and the new medications he has to take on however he was too nervous to go home. Denies any chest pain. He remains in a flutter at a controlled rate less than 120. He is nervous about the Coreg medication lowering his blood pressure. Lab work is improved from his previous discharge and his heart rate remains unchanged. He was not able to fill his Jardiance as this was $700 a month. He was also started on anticoagulation with Eliquis which we will continue here in the hospital FORMERLY [facility], [facility] Medical History Kidney stones Non-smoker Coronary artery disease Hypertension Pure hypercholesterolemia Essential hypertension Atherosclerosis of coronary artery bypass graft without angina pectoris Non-ST elevation (NSTEMI) myocardial infarction White coat syndrome with hypertension RBBB Premature ventricular contraction Nonrheumatic aortic valve insufficiency Atherosclerosis of coronary artery of [place] heart without angina pectoris Non-alcoholic fatty liver disease Home Medications ?Medication ?Instructions ?Recorded ?Last Taken ?Type aspirin 81 mg tablet,delayed 81 mg PO DAILY [facility] 05/24/17 02/23/24 08:03 History release (Adult Aspirin Regimen) apixaban 5 mg tablet (Eliquis) 5 mg PO BID #60 tabs 02/23/24 02/23/24 20:00 Rx carvedilol 6.25 mg tablet 6.25 mg PO 30 days #60 02/23/24 02/23/24 20:00 Rx tabs empagliflozin 10 mg tablet 10 mg PO DAILY 30 days #30 tabs 02/23/24 Unknown Rx (Jardiance) furosemide 40 mg tablet 40 mg PO BIDLX 30 days #60 tabs 02/23/24 02/23/24 14:04 Rx Allergy/AdvReac Type Severity Reaction Status Date / Time pravastatin sodium (From Allergy Unknown Verified 02/24/24 04:38 Pravachol) carvedilol (From Coreg) AdvReac Intermediate diarrhea Verified 02/24/24 04:38 atorvastatin calcium (From AdvReac Pain in Verified 02/24/24 04:38 Lipitor) joints gemfibrozil AdvReac myalgia Verified 02/24/24 04:38 Family History Mother CAD (coronary artery disease) Surgical History History of coronary artery stent placement History of esophagogastroduodenoscopy (EGD) (~2014) H/O coronary artery bypass surgery (~08/12/15) Social History Smoking Status: Never smoker alcohol intake: current details: rare substance use type: does not use ROS Constitutional Constitutional: Denies chills, fatigue, fever(s) or malaise Eyes Eyes: Denies blurry vision ENT HEENT: Denies headache(s) or nasal discharge Cardiovascular Cardiovascular: Reports lightheadedness and rapid heart rate; Denies chest pain, dyspnea on exertion or syncope Respiratory/Chest Respiratory/Chest: Denies cough, shortness of breath at rest or shortness of breath with exertion Gastrointestinal Gastrointestinal: Denies constipation, diarrhea, nausea or vomiting Genitourinary Genitourinary: Denies dysuria Neurologic Neurologic: Denies focal weakness, numbness or tremor(s) Psychiatric Psychiatric: Denies anxiety or depression Vital Signs Vital Signs Vital Signs: 02/24/24 04:38 02/24/24 04:38 02/24/24 05:38 Temperature 98.4 F Temperature Source Oral Pulse Rate 110 H 112 H Respiratory Rate 19 H 20 H Respiratory Effort Normal Non-Labored Respiratory Depth Normal Respiratory Pattern Normal Blood Pressure 114/60 120/87 H Blood Pressure Mean 78 98 Blood Pressure Source Blood Pressure Position Blood Pressure Location Pulse Ox 98 96 Oxygen Delivery Method Room Air Room Air Room Air 02/24/24 06:00 02/24/24 07:00 02/24/24 08:00 Temperature Temperature Source Pulse Rate 113 H 120 H 112 H Respiratory Rate 20 H 18 16 Respiratory Effort Respiratory Depth Respiratory Pattern Blood Pressure 102/74 104/73 98/73 Blood Pressure Mean 83 83 81 Blood Pressure Source Blood Pressure Position Blood Pressure Location Pulse Ox 96 95 95 Oxygen Delivery Method Room Air Room Air Room Air 02/24/24 08:41 02/24/24 09:35 02/24/24 10:20 Temperature 98.0 F 98.2 F Temperature Source Pulse Rate 112 H 110 H 112 H Respiratory Rate 18 18 16 Respiratory Effort Respiratory Depth Respiratory Pattern Blood Pressure 98/73 103/84 H 112/65 Blood Pressure Mean 81 90 80 Blood Pressure Source Blood Pressure Position Blood Pressure Location Pulse Ox 95 100 96 Oxygen Delivery Method Room Air 02/24/24 11:24 02/24/24 13:22 02/24/24 14:22 Temperature Temperature Source Pulse Rate 113 H 103 H 113 H Respiratory Rate 18 18 18 Respiratory Effort Respiratory Depth Respiratory Pattern Blood Pressure 101/76 103/79 110/68 Blood Pressure Mean 84 87 82 Blood Pressure Source Blood Pressure Position Blood Pressure Location Pulse Ox 96 99 99 Oxygen Delivery Method Room Air Room Air Room Air 02/24/24 15:48 Temperature 97.8 F Temperature Source Temporal Pulse Rate 114 H Respiratory Rate 18 Respiratory Effort Respiratory Depth Respiratory Pattern Blood Pressure 117/78 Blood Pressure Mean 91 Blood Pressure Source Monitor Blood Pressure Position Sitting Blood Pressure Location Left Arm Pulse Ox 98 Oxygen Delivery Method Room Air Weight Weight: 193 lb 5.526 oz Body Mass Index (BMI) 26.2 Physical Exam Narrative General: Alert, Oriented x3, Cooperative, No apparent distress HEENT: Atraumatic, PERRLA, EOMI, Normocephalic Oral: Moist Mucosa Neck: Supple, No JVD Lungs: Diminished, Normal air movement, No rhonchi, No wheeze, No rales Cardiovascular: Tachycardic, Regular Rhythm, Normal S1, Normal S2, No murmurs Abdomen: Soft, Non Tender, Non-Distended, No Hepato-splenomegaly Extremities: Trace edema, Capillary Refill Less than 3 Seconds Skin: No rashes, No breakdown Musculoskeletal: No Tenderness to Palpation of Joints or Extremities Neurological: No focal neurological deficits, Motor Exam 5/5 strength throughout, Sensory exam intact to light touch and pain Psych/Mental Status: Normal Affect, Appropriate Results Lab / Micro Data 02/24/24 04:45 02/24/24 04:45 Labs: Laboratory Results - last 24 hr 02/24/24 04:45: WBC 7.6, RBC 4.18 L, Hgb 13.1, Hct 41.4, MCV 99.0 H, MCH 31.3, M CHC 31.6 L, RDW Std Deviation 56.2 H, RDW Coeff of Omari 15.6 H, Plt Count 348, MPV 8.9, Immature Gran % (Auto) 0.400, Neut % (Auto) 72.7 H, Lymph % (Auto) 11.6 L, [place] % (Auto) 7.5, Eos % (Auto) 6.7 H, Baso % (Auto) 1.1 H, Absolute Neuts (auto) 5.5, Absolute Lymphs (auto) 0.88, Nucleated RBC % 0, Sodium 140, Potassium 4.1, Chloride 108 H, Carbon Dioxide 27.0, Anion Gap 5, BUN 30 H, C reatinine 1.36 H, Estim Creat Clear Calc 54.68, Est GFR (MDRD) Af Amer 66, Est GFR (MDRD) Non-Af 55 L, BUN/Creatinine Ratio 22.1 H, Glucose 127 H, Calcium 8.8, Total Bilirubin 1.20 H, AST 33, ALT 53, Alkaline Phosphatase 107, Total Protein 6.3 L, Albumin 2.9 L, Globulin 3.4, Albumin/Globulin Ratio 0.9 Imaging Radiology Impression Chest X-Ray 02/24/24 05:13 IMPRESSION: Bilateral peripheral chronic atelectasis or scarring. CT chest could better characterize as clinically indicated. Sternotomy changes with persistent small layering right effusion. Electronically Signed: Mikey Mooney MD at 6:23 EDT , Assessment & Plan Assessment/Plan (1) Generalized weakness: PLAN: Plan 1. Atrial flutter with acute decompensated systolic CHF/CAD status post CABG and stent/essential HTN/HLD ? Will transition his Coreg to metoprolol to see if this helps control his rate without diminishing his blood pressure as much ? Echo with an EF of 10% and dilated right ventricle with severe left ventricular hypokinesis ? Continue with Lasix p.o. 40 mg twice daily ?Will continue with the Jardiance while here ? Continue telemetry ? He was trialed on Entresto which he could not tolerate initially, will need repeat echo in a couple months ? Discussed with cardiology, will trial on digoxin with initial dose of 250 mcg IV x 1 given his renal excretion 2. CHEN with possible cirrhosis and ascites from portal hypertension ? The ascites is likely related to the significant heart failure ? This was evaluated on his previous admission ? Lab work is still pending, and results pending ? Liver biopsy has been performed DVT: Gu[place] 75 minutes was spent on direct patient care, including documentation as well as chart review and collaboration with colleagues Charges/Coding Visit Charges Inpatient E&M: 36240 Init Hosp L3
[2024-02-24] MEDS: Furosemide 40 MG Tablet PO (16:14)
[2024-02-24] MEDS: APIXABAN 5 MG TABLET PO ×2 (16:15→22:30)
[2024-02-24] MEDS: Metoprolol Tartrate 25 MG Tablet 12.5 MG PO (16:16)
--- NOTE | 2024-02-24 17:07 | EKG12_ITS ---
Test Reason : CHANGE Blood Pressure : / mmHG Vent. Rate : 090 BPM Atrial Rate : 000 BPM P-R Int : 000 ms QRS Dur : 130 ms QT Int : 426 ms P-R-T Axes : 000 081 250 degrees QTc Int : 521 ms Atrial fibrillation with premature ventricular or aberrantly conducted complexes Non-specific intra-ventricular conduction block T wave abnormality, consider lateral ischemia Abnormal ECG When compared with ECG of 24-FEB-2024 04:57, MANUAL COMPARISON REQUIRED, DATA IS UNCONFIRMED Confirmed by Duke Kee ([id number]), acquisitions editor AUBRIE ROGER ([id number]) on 02/26/2024 1:38:03 PM Referred By: ASHELY Confirmed By:Duke Kee
[2024-02-24] MEDS: Digoxin 250 MCG/ML Ampul IV (18:18)
[2024-02-24] MEDS: Metoprolol Tartrate 25 MG Tablet PO (22:31)
[2024-02-24] MEDS: 0.9% Saline Lock 10 ML Syringe IV (22:33)
[2024-02-25 03:00] VITALS: BP 107/77; PULSE 95; RESP 16; TEMP 36.1; O2SAT 99
[2024-02-25 09:00] VITALS: BP 109/67; PULSE 81; RESP 16; TEMP 36.4; O2SAT 95
[2024-02-25 09:09] VITALS: BP 109/67; PULSE 81
[2024-02-25] MEDS: Empagliflozin 10 MG Tablet PO (09:09)
[2024-02-25] MEDS: Furosemide 40 MG Tablet PO (09:09)
[2024-02-25] MEDS: Metoprolol Tartrate 25 MG Tablet PO (09:09)
[2024-02-25] MEDS: APIXABAN 5 MG TABLET PO (09:09)
[2024-02-25 09:19] VITALS: PULSE 81
[2024-02-25] MEDS: Digoxin 125 MCG Tablet PO (09:19)
[2024-02-25 11:35] VITALS: BP 105/74; PULSE 74; RESP 16; TEMP 36.4; O2SAT 95
--- NOTE | 2024-02-25 12:06 | DCINST_ITS ---
Discharge Instructions Diet Discharge Diet: Low fat / Low cholesterol Activity Discharge Activity: Return to Normal Activity Dressing / Incision Call your doctor if you observe: Fever of 101 or Higher, Shortness of breath, Dizziness, Fainting spells, Swelling in the ankles, Chest pain and Increased palpitations (irregular heartbeat) Follow Up Care Test Results: Test results from this visit will be discussed in further detail at your follow- up appointment, if applicable. Discharge Plan Admission Admit Date/Time: 02/24/24 11:05 Attending Provider: Ravi Peralta Primary Care Provider: Cliff Pardo Chi Instructions Patient Instructions: ED Atrial Flutter, ED Heart Failure, Congestive (CHF), ED Cirrhosis, ED Dyspnea, ED Weakness (Uncertain Cause) Additional Instructions / Restrictions: Take your normal prescription medications as prescribed. Follow-up with your doctor to ensure you are improving next week. Discharge Orders/Prescriptions Prescriptions: New metoprolol tartrate 25 mg Tablet 25 mg PO BID 30 Days Qty: 60 0RF Continued furosemide 40 mg Tablet 40 mg PO BIDLX 30 Days Qty: 60 1RF Eliquis 5 mg tablet 5 mg PO BID Qty: 60 0RF aspirin [Adult Aspirin Regimen] 81 mg tablet,delayed release (DR/EC) 81 mg PO DAILY Discontinued carvedilol 6.25 mg Tablet 6.25 mg PO 00,1999 30 Days Qty: 60 1RF Jardiance 10 mg Tablet 10 mg PO DAILY 30 Days Qty: 30 1RF Referrals / Follow Up: Ivan Mccall MD [Med Staff - Active Staff] - As soon as possible Cliff Pardo Chi, MD [Primary Care Provider] - As soon as possible Disposition Disposition (needs filled in before D/C Order can be placed): Home, Self Care
--- NOTE | 2024-02-25 14:52 | DS.PCM_ITS ---
Providers Date of Admission: 02/24/24 Primary Care Physician: Dr. Cliff Pardo MD Reason For Visit: HEART Diagnosis Discharge Diagnosis (1) Generalized weakness: Status: Acute Code(s): R53.1 - Weakness Medications at Discharge Home Medications aspirin 81 mg tablet,delayed release (Adult Aspirin Regimen) 81 mg PO DAILY [facility] 05/24/17 apixaban 5 mg tablet (Eliquis) 5 mg PO BID #60 tabs 02/23/24 furosemide 40 mg tablet 40 mg PO BIDLX 30 days #60 tabs 02/23/24 metoprolol tartrate 25 mg tablet 25 mg PO BID 30 days #60 tabs 02/25/24 Hospital Course Operations None Procedures None Summary of Care Provided Minutes Spent on Discharge: 39 Hospital Course: Per HPI: SEVERIANO HERNANDEZ, is a 69 M who presents to the hospital with dizziness. We discussed with him at length during his recent admission that the dizziness is likely given his ejection fraction of 10% and the new medications he has to take on however he was too nervous to go home. Denies any chest pain. He remains in a flutter at a controlled rate less than 120. He is nervous about the Coreg medication lowering his blood pressure. Lab work is improved from his previous discharge and his heart rate remains unchanged. He was not able to fill his Jardiance as this was $700 a month. He was also started on anticoagulation with Eliquis which we will continue here in the hospital Hospital Course: 1. Atrial flutter with acute decompensated systolic CHF/CAD status post CABG and stents/essential HTN/HLD?69-year-old male presented back to the hospital with concerns for dizziness and hypotension. He had been discharged the day prior with a new diagnosis of severe systolic CHF and cardiomyopathy with an EF of 10% and left global hypokinesis. He had been started on Coreg and Lasix. 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 So he came to the hospital. His stay in the hospital has been uneventful but he was very anxious about the Coreg so he was transition to metoprolol 25 mg p.o. twice daily. I did also attempt after discussing the case with cardiology about trying digoxin however the night before he had episode after the digoxin and the metoprolol of a systolic in the 90s and so given his hesitancy with previous low pressures at home I elected to continue with the metoprolol 25 mg p.o. twice daily but discontinue the digoxin on discharge. He will continue to follow-up with his PCP as well as cardiology as an outpatient. I discussed with him and his the plan for discharge today they expressed understanding the risk and benefits of going home and would like to go home today. Physical Exam Narrative General: Alert, Oriented x3, Cooperative, No apparent distress HEENT: Atraumatic, PERRLA, EOMI, Normocephalic Oral: Moist Mucosa Neck: Supple, No JVD Lungs: Diminished, Normal air movement, No rhonchi, No wheeze, No rales Cardiovascular: Regular rate, Regular Rhythm, Normal S1, Normal S2, No murmurs Abdomen: Soft, Non Tender, Non-Distended, No Hepato-splenomegaly Extremities: Trace edema, Capillary Refill Less than 3 Seconds Skin: No rashes, No breakdown Musculoskeletal: No Tenderness to Palpation of Joints or Extremities Neurological: No focal neurological deficits, Motor Exam 5/5 strength throughout, Sensory exam intact to light touch and pain Psych/Mental Status: Normal Affect, Appropriate Weight / BMI Weight Weight: 193 lb 5.526 oz Body Mass Index (BMI) 26.2 ABG / Lab / Microbiology Data 02/24/24 04:45 02/24/24 04:45 D/C Instructions Discharge Diet: Low fat / Low cholesterol Call your doctor if you observe: Fever of 101 or Higher, Shortness of breath, Dizziness, Fainting spells, Swelling in the ankles, Chest pain and Increased palpitations (irregular heartbeat) Meaningful Use Info Meaningful Use Meaningful Use Diagnoses (Choose all that apply): None applicable Ischemic Stroke Statin Dosing Therapy Reference: STATIN DOSE THERAPY REFERENCE: * Patients > 75 years receive moderate or high dose statin therapy. * Patients 75 years or YOUNGER should receive HIGH intensity statin dose unless contraindicated. You will be required to document reason for non-treatment if statin daily dose does not meet guidelines. HIGH DOSE STATIN THERAPY DAILY Atorvastatin > than or = to 40 mg Rosuvastatin > than or = to 20 mg Amlodipine + Atorvastatin > than or = to 2.5/40 mg Ezetimibe + Simvastatin 10/80 mg Simvastatin 80mg Discharge Plan Admission Admit Date/Time: 02/24/24 11:05 Attending Provider: Ravi Peralta Primary Care Provider: Cliff Pardo Chi Instructions Patient Instructions: ED Atrial Flutter, ED Heart Failure, Congestive (CHF), ED Cirrhosis, ED Dyspnea, ED Weakness (Uncertain Cause) Additional Instructions / Restrictions: Take your normal prescription medications as prescribed. Follow-up with your doctor to ensure you are improving next week. Discharge Orders/Prescriptions Prescriptions: New metoprolol tartrate 25 mg Tablet 25 mg PO BID 30 Days Qty: 60 0RF Continued furosemide 40 mg Tablet 40 mg PO BIDLX 30 Days Qty: 60 1RF Eliquis 5 mg tablet 5 mg PO BID Qty: 60 0RF aspirin [Adult Aspirin Regimen] 81 mg tablet,delayed release (DR/EC) 81 mg PO DAILY Discontinued carvedilol 6.25 mg Tablet 6.25 mg PO 00,1999 30 Days Qty: 60 1RF Jardiance 10 mg Tablet 10 mg PO DAILY 30 Days Qty: 30 1RF Referrals / Follow Up: Ivan Mccall MD [Med Staff - Active Staff] - As soon as possible Cliff Pardo Chi, MD [Primary Care Provider] - As soon as possible Disposition Disposition (needs filled in before D/C Order can be placed): Home, Self Care Charges/Coding Visit Charges Inpatient E&M: 65063 Disch Hosp >30min
== END 2024-02-25 12:08 | disposition home or self-care (01) ==
LOC: ED 07:42 → PCU 14:45
PROVIDERS: Admitting Provider Family Medicine; Emergency Provider Emergency Medicine; PCP Family Medicine Geriatric Medicine; Visit Provider Family Medicine
DX: I11.0 Hypertensive heart disease with heart failure (principal); K76.6 Portal hypertension; K74.60 Unspecified cirrhosis of liver; I50.21 Acute systolic (congestive) heart failure; I48.92 Unspecified atrial flutter; I42.0 Dilated cardiomyopathy; E78.00 Pure hypercholesterolemia, unspecified; Z79.01 Long term (current) use of anticoagulants; I25.10 Atherosclerotic heart disease of native coronary artery without angina pectoris; Z95.1 Presence of aortocoronary bypass graft; Z79.82 Long term (current) use of aspirin; Z79.899 Other long term (current) drug therapy; I25.2 Old myocardial infarction; K75.81 Nonalcoholic steatohepatitis (NASH)
CPT/HCPCS: 71045; 80053; 85025; 93005; 96374; 99221; 99285; A4216; G0378

== ENCOUNTER → 2024-02-28 | Outpatient (CLI) | payer MEDICARE, OTHER, SELFPAY ==
[2018-07-27 13:33] VITALS: BMI 27.7
--- NOTE | 2024-02-28 11:58 | STRESSREP ---
Stress Test Report Pharmacologic myocardial perfusion stress test. 69-year-old man with a history of ischemic cardiomyopathy Resting EKG demonstrates atrial fibrillation with frequent premature ventricular complexes with a rate of 90 bpm. Resting blood pressure is 118/78 mmHg. 0.4 mg of regadenoson was infused per usual protocol followed by rapid intravenous saline flush injection. Continuous EKG monitoring was performed. The maximum heart rate was 162 bpm which was 108 of max impacted heart rate the maximum workload was 1 metabolic equivalent. At rest there were no ST or T wave changes noted to suggest ischemia and at peak infusion nonspecific ST changes were noted which did not meet the criteria for ischemia. No clinical angina is noted. The final blood pressure was 118/70 mmHg. Myocardial perfusion protocol. 11.8 mCi of technetium 99m sestamibi was injected at rest. 0.4 mg of regadenoson was infused per usual protocol. At peak infusion 33.1 mCi of technetium 99m sestamibi was injected stress images were obtained stress and rest images were reconstructed and compared in the short axis vertical long and horizontal long axis. Gated images were also obtained. Perfusion SPECT analysis: Review of the stress images demonstrate a dilated cardiac silhouette size. There is markedly reduced perfusion involving the anterior lateral wall and apex and a medium size defect also in the basal inferior wall. The resting images demonstrate a fixed defect in the basal inferior wall with mild improvement noted in the anterior lateral wall and apex suggestive of ischemia in this distribution. Conclusion: Abnormal pharmacologic myocardial perfusion stress test. Mild anterolateral and apical ischemia noted Dilated cardiomyopathy [
== END | disposition home or self-care (01) ==
LOC: CVS 06:35
PROVIDERS: PCP Family Medicine Geriatric Medicine; Referring Provider Internal Medicine Cardiovascular Disease; Visit Provider Internal Medicine Cardiovascular Disease
DX: R06.02 Shortness of breath (principal); I25.810 Atherosclerosis of coronary artery bypass graft(s) without angina pectoris; Z95.1 Presence of aortocoronary bypass graft
CPT/HCPCS: 78452; 93017; A9500; A4216; J2785

== ENCOUNTER 2024-03-08 07:03 | Day surgery (SDC) | payer MEDICARE, OTHER, SELFPAY ==
[2018-07-27 13:33] VITALS: BMI 27.7
[2024-03-07 08:14] VITALS: BMI 26.2
--- OUTSIDE RECORDS SUMMARY | 2024-03-08 07:06 | XMS RPT_ITS | CCD ---
Author Organization [facility] Care Team Providers Care B[employer] Product Development Manager Name Role Phone FABIAN KNIGHT Unavailable Unavailable BRANDON, HANDY-CHI Unavailable Unavailable Problems Problem Classification Problem Date Documented Da te Episodic/Chronic Unclassified (2 sources) Encounter for screening for malignant neoplasm of colon; Translations: [Encounter for screening for malignant neoplasm of colon] Onset: 06-29-2017 Episodic Results Test Name Value Interpretation Reference Range Facility Final Surgical Pathology Rep [facility] 07-03-2017 Final Surgical Pathology Report . Pathology ReportsAccession: Collected Date/Time: Received Date/Time: Pathologist:[id number] 06/29/2017 13:47 EST 06/30/2017 13:47 EST MD JENELLE LEVIN Final Surgical Pathology ReportDIAGNOSIS:SIGMOID COLON, BIOPSY -- TUBULAR ADENOMA.CLINICAL INFORMATION:SCREENING COLONOSCOPYSPECIMEN:A POLYP, COLORECT - SIGMOID POLYP BIOPSIES - R/O ADENOMAGROSS DESCRIPTION:_Received in formalin labeled sigmoid polyp biopsies are 3 solorzano glistening soft tissues averaging 0.3 cm. A S -1Dictated by KAMAR OLIVA ([facility])MICROSCOPIC DESCRIPTION:Slides reviewed.Electronically Signed byPathology Report verified by [facility] signed by JENELLE LEVIN MDSign out Date: 07/03/2017 11:12Performing Lab: [facility], [address] [place] [address] ([place]) Comment on above: Performed By: #### SPFR ####[facility] [address] [place] [id number] Encounters Encounter Date Encounter Type Care Provider Facility Start: 06-29-2017 End: 07-04-2017 Ambulatory DMITRYMILTON KNIGHT Facility:[facility] Payers Date Payer Category Payer Unknown [id number] Summary Purpose Family History No Family History Records Found Advance Directives No Advanced Directives Records Found Additional Source Comments (unrecognized sect ion and content) No Status Records Found INFORMATION SOURCE (unrecogn ized section and content) DATE CREATED AUTHOR 11/03/2017 [facility] ([place]) FOR RECORDS PERTAINING TO PATIENTS WHO ARE [...] BE BASED ON THE PRIMARY CLINICAL RECORDS. [facility] [facility]. provides no warranty or guarantee of the accuracy or completeness of information in this document.
--- NOTE | 2024-03-08 08:08 | PCM.HP.CAR ---
[facility] - General [facility] Narrative SEVERIANO HERNANDEZ, is a 69 M who presents for a cardiac catheterization. He was admitted to the hospital approximately 2 weeks ago with blood work which had demonstrated an elevated troponin. He has apparently had ascites over the last number of weeks as well as pedal edema. He is also had some shortness of breath and has lost approximately 50 pounds of weight. He has a history of coronary artery disease status post three-vessel bypass surgery [place] [address] Dillard at [facility] with REYES to distal of the LAD, saphenous vein graft to obtuse marginal which was evaluated and noted to be since occluded, and SVG to PDA. He also underwent PTCA/ERROL to RCA x2 in October 2017 and PTCA/ERROL to mid RAMUS on 07/27/2018. He also has a history of hypertension and hyperlipidemia. Interestingly it appears that he did have left ventricular systolic dysfunction diagnosed in 2018 with ejection fraction in the 30 to 35% range which had apparently improved to the 40% range in 2019. It does not appear that he had any follow-up after that. In the emergency room he was noted to have a tachycardia which appeared to be atrial flutter with a 2-1 conduction significant ascites, significant pedal edema. Cardiology was called for evaluation due to his previous cardiac condition. His last visits to the heart group was over 2 years ago. He was seen by cardiology his medications optimized he underwent a paracentesis and then he was scheduled for an outpatient cardiac catheterization. He did have an echocardiogram during that admission which demonstrated an ejection fraction of approximately 10% [facility] Medical History Kidney stones Non-smoker Coronary artery disease Hypertension Pure hypercholesterolemia Essential hypertension Atherosclerosis of coronary artery bypass graft without angina pectoris Non-ST elevation (NSTEMI) myocardial infarction White coat syndrome with hypertension RBBB Premature ventricular contraction Nonrheumatic aortic valve insufficiency Atherosclerosis of coronary artery of [place] heart without angina pectoris Non-alcoholic fatty liver disease Home Medications ?Medication ?Instructions ?Recorded ?Last Taken ?Type aspirin 81 mg tablet,delayed 81 mg PO DAILY [facility] 05/24/17 03/08/24 History release (Adult Aspirin Regimen) apixaban 5 mg tablet (Eliquis) 5 mg PO BID #60 tabs 02/23/24 03/05/24 Rx furosemide 40 mg tablet 40 mg PO BIDLX 30 days #60 tabs 02/23/24 02/23/24 14:04 Rx metoprolol tartrate 25 mg tablet 25 mg PO BID 30 days #60 tabs 02/25/24 03/07/24 Rx Allergy/AdvReac Type Severity Reaction Status Date / Time pravastatin sodium (From Allergy Unknown Verified 02/24/24 04:38 Pravachol) carvedilol (From Coreg) AdvReac Intermediate diarrhea Verified 02/24/24 04:38 atorvastatin calcium (From AdvReac Pain in Verified 02/24/24 04:38 Lipitor) joints gemfibrozil AdvReac myalgia Verified 02/24/24 04:38 Family History Mother CAD (coronary artery disease) Hypertension Grandmother Myocardial infarction Surgical History History of coronary artery stent placement History of esophagogastroduodenoscopy (EGD) (~2014) H/O coronary artery bypass surgery (~08/12/15) Social History Smoking Status: Never smoker alcohol intake: current details: rare substance use type: does not use ROS Constitutional Constitutional: Reports weight loss; Denies fever(s) Eyes Eyes: Reports systems reviewed and no addt'l complaints, except as documented ENT HEENT: Reports systems reviewed and no addt'l complaints, except as documented Cardiovascular Cardiovascular: Reports dyspnea at rest, dyspnea on exertion, pedal edema and weakness in extremities; Denies chest pain at rest, chest pain with activity, edema, palpitations or paroxysmal nocturnal dyspnea Respiratory/Chest Respiratory/Chest: Reports shortness of breath with exertion; Denies dyspnea on exertion, productive cough or shortness of breath at rest Gastrointestinal Gastrointestinal: Reports abdominal pain; Denies change in bowel habits, nausea, vomiting or weight changes Genitourinary Genitourinary: Denies difficulty urinating Musculoskeletal Musculoskeletal: Denies joint stiffness or muscle weakness Integumentary Integumentary: Denies lesions Neurologic Neurologic: Denies dizziness or syncope Psychiatric Psychiatric: Denies anxiety Endocrine Endocrinology: Denies excessive sweating or fatigue Hematologic/Lymphatic Hematologic/Lymphatic: Denies anemia Allergic/Immunologic Allergic/Immunologic: Denies seasonal rhinorrhea Vital Signs Vital Signs Vital Signs: Weight Weight: 193 lb Body Mass Index (BMI) 26.2 Physical Exam Const alert, oriented x3 and no apparent distress General Appearance: cooperative HEENT hearing grossly normal bilaterally Head and Scalp: atraumatic Eyes EOMs intact bilaterally Neck General: normal visual inspection Chest inspection of chest normal and palpation of chest normal Resp normal respiratory effort Auscultation: rales Cardio S1 normal heart sound and S2 normal heart sound Jugular Venous Distention: JVD Rhythm: abnormal rhythm irregularly irregular GI GI Narrative: Distended abdomen with ascites Palpation: hepatomegaly Extremity normal capillary refill General Extremity: edema bilateral Peripheral Pulses: Yes pulses 2+ throughout and femoral pulses present Skin no rashes or lesions noted Neuro oriented x3 and CN's II-XII intact bilaterally Psych Appearance: grossly normal and appropriate Cardiology Labs/Tests Cardiology Labs/Tests: Rhythm: EKG: ECHO: Stress Test: Cardiac Cath: PCI: CT Surgery: Holter monitor: EPS: PPM: CXR: Chest CT Scan: Assessment & Plan Assessment/Plan (1) Dilated cardiomyopathy: PLAN: He does have a dilated cardiomyopathy with an estimated ejection fraction of 10 to 15%. This will need to be evaluated with a cardiac catheterization to exclude coronary ischemia. (2) Atrial flutter: QUALIFIERS: Atrial flutter type: typical Qualified Code(s): I48.3 - Typical atrial flutter PLAN: He does have evidence of atrial flutter and his ventricular response rate is controlled at this time. He will need to be on anticoagulation after the procedure is performed. (3) Stented coronary artery: PLAN: He does have a history of coronary artery disease status post PCI and stenting in the past as well as bypass. This will be evaluated with a cardiac catheterization this morning. (4) Essential hypertension: PLAN: His blood pressure is under fair control at this time.
--- NOTE | 2024-03-08 08:57 | CL.D_ITS ---
Patient Name: SEVERIANO HERNANDEZ Study Date: 03/08/2024 Performing: Ivan Mccall MD Ht: 72 inches 182.88 cm : 1955 Wt: 192.99 lbs 87.54 kg Age: 69 Gender: male BSA: 2.1 PROCEDURE(S) PERFORMED [id number])LHC/COR/CABG CLINICAL PROFILE AND INDICATIONS Indications: Cardiomyopathy Heart Failure: NYHA Class: 3, Newly Diagnosed: Yes, Heart Failure Type: Systolic Stress/Imaging Stress/Image Study Performed: No CAD Presentations: Other: SOB CONCLUSIONS Severe coronary disease with a patent REYES to the LAD saphenous vein graft obtuse marginal branch occluded saphenous vein graft to the right coronary artery and [place] right coronary artery with dilated cardiomyopathy. RECOMMENDATIONS Control atrial fibrillation, guideline directed medical therapy to optimize care and then to consider an implantable defibrillator DESCRIPTION OF PROCEDURE The patient arrived to the procedure lab. The risks and benefits of the procedure as well as a full description of our services here and current unavailability of surgical backup were fully explained to the patient and/or their significant other prior to the catheterization. The Timeout was completed, verifying the correct patient and procedure. The patient's procedural site was prepped and draped in the usual fashion. Local anesthetic was given subcutaneously to left radial region with Lidocaine 2%. Using a modified Seldinger technique, arterial access was obtained via the left radial artery, a 6Fr sheath was inserted. Left internal mammary artery graft to the LAD selective angiography was performed in multiple views using a 5 Fr. IM catheter. Left Coronary Artery selective angiography was performed in multiple views using a 6 Fr. JL 4-125cm catheter. Right Coronary Artery selective angiography was then performed in multiple views using a 6 Fr. JR 4-125cm catheter. Saphenous Vein graft to the OM 1 selective angiography was performed in multiple views using a 6 Fr. JR 4-125cm catheter. Saphenous Vein graft to the unknown artery (occluded graft) selective angiography was performed in single view using a 6 Fr. JL 4-125cm catheter. LV to AO pullback pressures were then recorded.The arterial sheath was pulled and a TR Band was applied for hemostasis. 12cc air inserted. CORONARY ANGIOGRAPHY DOMINANCE: Right Dominant LEFT HEART ASSESSMENT Left Ventricular Ejection Fraction: by Echo 10 % Depressed Left Ventricular systolic function Elevated Left Ventricular End Diastolic Pressure LEFT MAIN: Severe disease noted with 50% mid segment LEFT ANTERIOR DESCENDING ARTERY: Severely diseased proximally and then totally occluded DIAGONAL 1: Proximal - Diffusely diseased up to 70 % CIRCUMFLEX ARTERY: Total proximal occlusion RIGHT CORONARY ARTERY: PROX RCA: is occluded GRAFTS: REYES graft to the LAD This is patent and appears to be a sequential graft to the mid and distal segments Saphenous Vein graft to the 2nd OM This is patent with moderate distal disease but overall good graft anatomy Saphenous Vein graft to the RPDA is totally occluded COMPLICATIONS No Complications PROCEDURE MEDICATIONS Fentanyl 50 mcg IV Versed 1 mg IV Oxygen: 2 L/min via nasal cannula Heparin given IA 03/08/2024 08:25:33 Lasix 40 mg IV 03/08/2024 08:42:54 SUMMARY OF HEMODYNAMIC DATA Time AIR REST ECG 07:23:54 AO 96/56 (75) SA 08:32:22 AO 126/82 (101) 08:35:23 LV 127/13, 26 08:41:04 LV 116/17, 29 08:41:13 LVp 118/16, 17 08:41:17 AOp 132/71 (100) 08:41:24 AIR REST 08:51:16 Signed By Ivan Mccall MD On 03/08/2024 09:28:42 Signed By Ivan Mccall MD On 03/08/2024 08:55:59 Ivan Mccall MD
== END 2024-03-08 11:00 | disposition home or self-care (01) ==
PROVIDERS: PCP Family Medicine Geriatric Medicine; Referring Provider Internal Medicine Cardiovascular Disease; Visit Provider Internal Medicine Cardiovascular Disease
DX: I25.10 Atherosclerotic heart disease of native coronary artery without angina pectoris (principal); I11.0 Hypertensive heart disease with heart failure; I50.22 Chronic systolic (congestive) heart failure; I48.3 Typical atrial flutter; I42.0 Dilated cardiomyopathy; E78.00 Pure hypercholesterolemia, unspecified; Z79.01 Long term (current) use of anticoagulants; Z95.5 Presence of coronary angioplasty implant and graft; Z79.899 Other long term (current) drug therapy
CPT/HCPCS: 93455; 99152; 99153; C1894; Q9967; C1769; J1940

== ENCOUNTER → 2024-03-26 | Outpatient (CLI) | payer MEDICARE, OTHER, SELFPAY ==
[2018-07-27 13:33] VITALS: BMI 27.7
[2024-03-26 12:04] LABS: Absolute Lymphocyte Count 0.78 X10^3/uL (0.83-4.51); Absolute Neutrophil Count 3.8 X10^3/uL (2.0-7.7); Basophil# 0.06 X10^3/uL; Basophil% 1.1 % (0-1); Eosinophil# 0.59 X10^3/uL; Eosinophils% 10.4 % (0-5); Hematocrit 42.4 % (40-54); Hemoglobin 13.4 g/dL (13.0-16.5); Lymphocyte # 0.78 X10^3/ul (0.83-4.51); Lymphocyte % 13.7 % (19-41); Mean Corp Hgb Conc 31.6 g/dL (32-36); Mean Corpuscular Hgb 31.1 pg (27.0-32.0); Mean Corpuscular Volume 98.4 fL (80-94); Mean Platelet Vol. 8.2 fl (6.2-12.0); NRBC Flagged by Analyzer 0 % (0-5); Neutrophil # 3.84 X10^3/uL (2.7-7.7); Neutrophil % 67.4 % (47-70); Platelet Count 277 K/mm3 (150-450); RBC Distribution Width CV 14.8 % (11.6-14.6); Red Blood Count 4.31 M/mm3 (4.6-6.2); White Blood Count 5.7 K/mm3 (4.4-11.0)
[2024-03-26 12:17] LABS: International Normalized Ratio 1.4; Prothrombin Time (Protime)PT. 17.3 SECONDS (11.7-14.9)
[2024-03-26 12:53] LABS: ALB/GLOB Ratio 0.8 RATIO (0.9-2.4); AST(SGOT) 18 U/L (15-37); Alanine Aminotransfer ALT/SGPT 20 U/L (16-61); Albumin, Serum 3.6 g/dL (3.2-5.0); Alkaline Phosphatase 142 U/L (45-117); Anion Gap 6 (5-15); BUN 24 mg/dL (7-18); BUN/Creat Ratio 18.8 RATIO (10-20); Bilirubin, Direct 0.67 mg/dL (0.00-0.30); Calcium,Total 9.2 mg/dL (8.5-10.1); Chloride 106 mmol/L (98-107); Creatinine, Serum 1.28 mg/dL (0.70-1.30); EST Glomerular Filtration Rate 59 mL/min (>60); Est Glom Filt Rate - Afr Amer 71 mL/min (>60); Globulin 4.4 g/dL (2.2-4.2); Glucose 113 mg/dL (74-106); Potassium 4.1 mmol/L (3.5-5.1); Sodium Level 140 mmol/L (136-145)
== END | disposition home or self-care (01) ==
LOC: LAB 11:46
PROVIDERS: PCP Family Medicine Geriatric Medicine; Referring Provider Student in an Organized Health Care Education/Training Program; Visit Provider Student in an Organized Health Care Education/Training Program
DX: K74.60 Unspecified cirrhosis of liver (principal); R18.8 Other ascites
CPT/HCPCS: 36415; 80053; 82248; 85025; 85610

== ENCOUNTER → 2024-04-02 | Outpatient (CLI) | payer MEDICARE, OTHER, SELFPAY ==
[2018-07-27 13:33] VITALS: BMI 27.7
[2024-04-02 17:05] LABS: ALB/GLOB Ratio 0.9 RATIO (0.9-2.4); AST(SGOT) 14 U/L (15-37); Alanine Aminotransfer ALT/SGPT 23 U/L (16-61); Albumin, Serum 3.9 g/dL (3.2-5.0); Alkaline Phosphatase 149 U/L (45-117); Anion Gap 6 (5-15); BUN 20 mg/dL (7-18); BUN/Creat Ratio 16.7 RATIO (10-20); Calcium,Total 9.3 mg/dL (8.5-10.1); Chloride 106 mmol/L (98-107); EST Glomerular Filtration Rate 63 mL/min (>60); Est Glom Filt Rate - Afr Amer 77 mL/min (>60); Globulin 4.3 g/dL (2.2-4.2); Glucose 101 mg/dL (74-106); Potassium 3.8 mmol/L (3.5-5.1); Protein, Total 8.2 g/dL (6.4-8.2); Sodium Level 139 mmol/L (136-145)
== END | disposition home or self-care (01) ==
LOC: LAB 15:27
PROVIDERS: PCP Family Medicine Geriatric Medicine; Referring Provider Physician Assistant Medical; Visit Provider Physician Assistant Medical
DX: R06.02 Shortness of breath (principal)
CPT/HCPCS: 36415; 80053

== ENCOUNTER 2024-05-16 10:03 | Day surgery (SDC) | payer MEDICARE, OTHER, SELFPAY ==
[2018-07-27 13:33] VITALS: BMI 27.7
--- NOTE | 2024-05-13 14:16 | PAT.ANESEVAL ---
Pre-Assessment Diagnosis/Proposed Procedure Planned Operative Procedure(s): EGD Anesthesia History Anesthesia History - chest painting leader: Anesthesia History - chest painting leader Hx Hospitalization Yes: 02/2024 HEART ISSUES/ 05/13/24 11:39 PARACENTIS OF ABD. Any Problems With Anesthesia No 05/13/24 11:39 Cholinesterase deficiency No 05/13/24 11:39 You/Your Family Experience No 05/13/24 11:39 fever (hyperthermia) with Relationship Recent Exposure to Contagious Disease Does patient have nerve No 05/13/24 11:39 stimulator Patient instructed to have device shut off --Does patient have Pacemaker or ICD? When Was Last Pacemaker Check QUESTION #4 FULL TEXT: You/Your Family Experience fever (hyperthermia) with Anesthesia Last Oral Intake Last Oral intake: Last Oral Intake NPO since Meds taken in AM with sips of water? Meds patient instructed to take am of surgery PONV PONV - chest painting leader: PONV - chest painting leader Female No 05/13/24 11:39 HX of Motion Sickness No 05/13/24 11:39 HX of N/V After Surgery No 05/13/24 11:39 Non-Smoker Yes 05/13/24 11:39 Duration of Surgery greater No 05/13/24 11:39 than 60 minutes Number of Risk Factors 1 05/13/24 11:39 PONV Score Low Risk 05/13/24 11:39 Height & Weight Height & Weight: Anesthesia: Height & Weight Height 6 ft 03/14/24 09:07 Respiratory Assessment Respiratory Assessment - chest painting leader: Respiratory Tract Infection Hx - chest painting leader Hx Respiratory Tract Infection No 05/13/24 11:39 STOP Sleep Apnea STOP Sleep Apnea - chest painting leader: STOP Sleep Apnea - chest painting leader Hx Hypertension No 05/13/24 11:39 Hx Sleep Apnea No 05/13/24 11:39 CPAP BIPAP Do you snore loudly (louder No 05/13/24 11:39 than talking or can be heard Do you often feel tired/ Yes 05/13/24 11:39 fatigued/ sleepy during daytime? Has anyone observed you stop No 05/13/24 11:39 breathing during sleep? STOP Results Negative 05/13/24 11:39 QUESTION #5 FULL TEXT : Do you snore loudly (louder than talking or can be heard through closed doors)? Tobacco Use History Tobacco Use History - chest painting leader: Tobacco Use History - chest painting leader Tobacco Use Smoking Status Never smoker 05/13/24 11:39 Hx Tobacco Use No 05/13/24 11:39 Years Smoking Packs Smoked per Day Smoking Cessation Date was within the last 15 years Hx Smoking Cessation Date Hx Smoking Cessation Counseling Hematologic Medial History Hematologic Hx - chest painting leader: Hematologic Medical Hx - lot worker Hx of Blood Transfusion No 05/13/24 11:39 Hx of Transfusion in last 3 No 05/13/24 11:39 Months Date of Last Transfusion (if within last 3 months) Ever experience any problems No 05/13/24 11:39 with transfusion(s)? Specify any problems Hx of Preganancy in last 3 N/A 05/13/24 11:39 Months Nurse Filling Out Transfusion DSCHRIBER 05/13/24 11:39 & Questions: Date: 05/13/24 05/13/24 11:39 Time: 11:42 05/13/24 11:39 Patient unable to answer at this time (ie. confused, unrespo /Reproduction History /Reproductive History - chest painting leader: /Reproductive Hx- chest painting leader Hx Now No 05/13/24 11:39 Gestational Age (in weeks): EDC: Hx Hx Para Hx Section SAB No 05/13/24 11:39 [facility] Medical History (Updated 05/13/24 @ 12:17 by Melanie Mcdaniel) Wears glasses Wrist injury Loss of consciousness Injury of back Dietary restriction Shortness of breath on exertion History of pain when walking History of edema History of echocardiogram History of stress test Cardiology follow-up encounter History of atrial fibrillation Non-smoker Coronary artery disease Hypertension Pure hypercholesterolemia Essential hypertension Atherosclerosis of coronary artery bypass graft without angina pectoris Non-ST elevation (NSTEMI) myocardial infarction White coat syndrome with hypertension RBBB Premature ventricular contraction Nonrheumatic aortic valve insufficiency Atherosclerosis of coronary artery of [place] heart without angina pectoris Non-alcoholic fatty liver disease Home Medications ?Medication ?Instructions ?Recorded ?Last Taken ?Type aspirin 81 mg tablet,delayed 81 mg PO DAILY [facility] 05/24/17 03/08/24 History release (Adult Aspirin Regimen) dapagliflozin propanediol 10 mg 10 mg PO QAM #60 tabs 03/08/24 Unknown Rx tablet spironolactone 25 mg tablet 25 mg PO QDAY #90 tabs 03/08/24 Unknown Rx apixaban 5 mg tablet (Eliquis) 5 mg PO BID #60 tabs 03/25/24 05/13/24 Rx lactulose 10 gram/15 mL (15 mL) 20 g (30 mL) PO BID 30 days #1,800 04/02/24 Unknown Rx oral solution mL carvedilol 12.5 mg tablet 6.25 mg (1/2 x 12.5 mg) PO BID #60 04/04/24 Unknown Rx tabs furosemide 40 mg tablet 40 mg PO .COMPLEX #180 tabs 04/04/24 Unknown Rx Allergy/AdvReac Type Severity Reaction Status Date / Time pravastatin sodium (From Allergy Unknown Verified 05/13/24 11:36 Pravachol) carvedilol (From Coreg) AdvReac Intermediate diarrhea Verified 05/13/24 11:36 atorvastatin calcium (From AdvReac Pain in Verified 05/13/24 11:36 Lipitor) joints gemfibrozil AdvReac myalgia Verified 05/13/24 11:36 Family History Mother CAD (coronary artery disease) Hypertension Grandmother Myocardial infarction Surgical History (Updated 05/13/24 @ 12:11 by Melanie Mcdaniel) History of cardiac catheterization Hx of colonoscopy History of coronary artery stent placement History of esophagogastroduodenoscopy (EGD) (~2014) H/O coronary artery bypass surgery (~08/12/15) Social History Smoking Status: Never smoker alcohol intake: current details: rare substance use type: does not use Audit: Pertinent Findings Pertinent Findings EKG Perinent findings: February 24, 2024. Atrial fibrillation with premature ventricular or aberrantly conducted complexes. Nonspecific intraventricular conduction block T wave abnormality consider lateral ischemia Stress test pertinent findings: February 28, 2024. Markedly reduced perfusion of the anterior lateral wall and apex and a medium size defect in the basal inferior wall. Resting images demonstrate a fixed defect in the basal inferior wall. With improvement noted in the anterior lateral wall and apex suggestive of ischemia. Echo (EF%) pertinent findings: February 21, 2024. Ejection fraction is 10% there is severe global hypokinesis of the left ventricle. Pulmonary artery systolic pressure is 45 mmHg. No aortic stenosis is noted. Heart catheterization pertinent findings: March 08, 2024. Severe coronary disease with patent REYES to the LAD. Saphenous venous graft to obtuse marginal. Occluded saphenous venous graft to the right coronary. Dilated cardiomyopathy. Consult pertinent findings: March 14, 2024. Gume OLIVA. 1. Dilated cardiomyopathy-ejection fraction 10%. Not symptomatic we will continue with his current medication protocol. Repeat echo in 3 months. 2. Atrial flutter-heart rate is controlled. Continue Eliquis and metoprolol. 3. Coronary artery disease-severe coronary artery disease cath as above. Continue with medical therapy. 4. Hypertension-blood pressure is on the lower side of normal. Recommendation Anesthesia Recommendation Anesthesia recommendation: OPTIMIZED for anesthesia (Patient is asymptomatic. If patient becomes unstable during procedure we will have to cancel.)
[2024-05-16] VITALS (7 sets, daily range): BP systolic 78–123; BP diastolic 46–89; PULSE 80–98; RESP 14–16; TEMP 36.3–36.4; O2SAT 97–100; BMI 23.6
--- NOTE | 2024-05-16 10:41 | PCM.HP.STD ---
HPI - General General Date of Admission: 05/16/24 Date of Service: 05/16/24 Chief Complaint: cirrhosis HPI Narrative SEVERIANO HERNANDEZ, is a 69 M who presents to the office today for hospital f/u. Pt was hospitalized at [facility] 02.20.24-02.23.24 w/ a fib, heart failure and was subsequently found to have CHEN with cirrhosis and ascites. He underwent liver biopsy which showed early cirrhosis. He had paracentesis with removal of 8 liters. MELD score of 15. Since then he has underwent cardiac catheterization and had some issues with carvedilol which sent him back to hospital. OV 03.26.24 Pt has been doing ok. He feels his abdomen is no longer distended w/ the diuretic therapy. He has no abdominal pain, n/v, constipation, diarrhea, jaundice, itchy skin or confusion [facility] Medical History Wears glasses Wrist injury Loss of consciousness Injury of back Dietary restriction Shortness of breath on exertion History of pain when walking History of edema History of echocardiogram History of stress test Cardiology follow-up encounter History of atrial fibrillation Non-smoker Coronary artery disease Hypertension Pure hypercholesterolemia Essential hypertension Atherosclerosis of coronary artery bypass graft without angina pectoris Non-ST elevation (NSTEMI) myocardial infarction White coat syndrome with hypertension RBBB Premature ventricular contraction Nonrheumatic aortic valve insufficiency Atherosclerosis of coronary artery of [place] heart without angina pectoris Non-alcoholic fatty liver disease Home Medications ?Medication ?Instructions ?Recorded ?Last Taken ?Type aspirin 81 mg tablet,delayed 81 mg PO DAILY [facility] 05/24/17 03/08/24 History release (Adult Aspirin Regimen) dapagliflozin propanediol 10 mg 10 mg PO QAM #60 tabs 03/08/24 Unknown Rx tablet spironolactone 25 mg tablet 25 mg PO QDAY #90 tabs 03/08/24 Unknown Rx apixaban 5 mg tablet (Eliquis) 5 mg PO BID #60 tabs 03/25/24 05/13/24 08:00 Rx lactulose 10 gram/15 mL (15 mL) 20 g (30 mL) PO BID 30 days #1,800 04/02/24 Unknown Rx oral solution mL carvedilol 12.5 mg tablet 6.25 mg (1/2 x 12.5 mg) PO BID #60 04/04/24 05/16/24 08:30 Rx tabs furosemide 40 mg tablet 40 mg PO .COMPLEX #180 tabs 04/04/24 Unknown Rx Allergy/AdvReac Type Severity Reaction Status Date / Time pravastatin sodium (From Allergy Unknown Verified 05/13/24 11:36 Pravachol) carvedilol (From Coreg) AdvReac Intermediate diarrhea Verified 05/13/24 11:36 atorvastatin calcium (From AdvReac Pain in Verified 05/13/24 11:36 Lipitor) joints gemfibrozil AdvReac myalgia Verified 05/13/24 11:36 Family History Mother CAD (coronary artery disease) Hypertension Grandmother Myocardial infarction Surgical History History of cardiac catheterization Hx of colonoscopy History of coronary artery stent placement History of esophagogastroduodenoscopy (EGD) (~2014) H/O coronary artery bypass surgery (~08/12/15) Social History Smoking Status: Never smoker alcohol intake: current details: rare substance use type: does not use ROS Constitutional Constitutional: Reports weight loss; Denies fever(s) Eyes Eyes: Reports systems reviewed and no addt'l complaints, except as documented ENT HEENT: Reports systems reviewed and no addt'l complaints, except as documented Cardiovascular Cardiovascular: Reports dyspnea at rest, dyspnea on exertion, pedal edema and weakness in extremities; Denies chest pain at rest, chest pain with activity, edema, palpitations or paroxysmal nocturnal dyspnea Respiratory/Chest Respiratory/Chest: Reports shortness of breath with exertion; Denies dyspnea on exertion, productive cough or shortness of breath at rest Gastrointestinal Gastrointestinal: Reports abdominal pain; Denies change in bowel habits, nausea, vomiting or weight changes Genitourinary Genitourinary: Denies difficulty urinating Musculoskeletal Musculoskeletal: Denies joint stiffness or muscle weakness Integumentary Integumentary: Denies lesions Neurologic Neurologic: Denies dizziness or syncope Psychiatric Psychiatric: Denies anxiety Endocrine Endocrinology: Denies excessive sweating or fatigue Hematologic/Lymphatic Hematologic/Lymphatic: Denies anemia Allergic/Immunologic Allergic/Immunologic: Denies seasonal rhinorrhea Vital Signs Vital Signs Vital Signs: 05/16/24 10:31 05/16/24 10:31 Temperature 97.6 F L Temperature Source Temporal Pulse Rate 98 Respiratory Rate 16 Respiratory Pattern Normal Blood Pressure 123/89 H Blood Pressure Mean 100 Blood Pressure Source Monitor Blood Pressure Position Semi-Fowlers Blood Pressure Location Left Arm Pulse Ox 100 Oxygen Delivery Method Room Air Weight Weight: 174 lb 2.643 oz Body Mass Index (BMI) 23.6 Physical Exam Const alert, oriented x3, no apparent distress and healthy appearing General Appearance: cooperative GI normal to inspection, nondistended, normoactive bowel sounds, soft to palpation, non-tender and non-distended Percussion: normal to percussion Rectal Exam: deferred Assessment & Plan Assessment/Plan (1) SOB (shortness of breath): (2) Cirrhosis of liver: QUALIFIERS: Hepatic cirrhosis type: unspecified hepatic cirrhosis Ascites presence: with ascites Qualified Code(s): K74.60 - Unspecified cirrhosis of liver; R18.8 - Other ascites (3) Ascites: QUALIFIERS: Ascites type: other type Qualified Code(s): R18.8 - Other ascites PLAN: Plan (1) Cirrhosis of liver: Status: Acute Qualifiers: Hepatic cirrhosis type: unspecified hepatic cirrhosis Ascites presence: with ascites Qualified Code(s): K74.60 - Unspecified cirrhosis of liver; R18.8 - Other ascites Plan: This is a 69 to male pt here today for hospital f/u. He was hospitalized for cardiac issues in February and was subsequently found to have cirrhosis. Liver biopsy confirmed this. He was not aware of this diagnosis prior. I reviewed the causes and consequences of cirrhosis with him. He is currently already on spironolactone and lasix. He will continue this. He is also on carvedilol for cardiac issues. He will undergo EGD for surveillance of esophageal varices. I will prescribe him lactulose for prevention of hepatic encephalopathy. BLood work ordered to calculate the MELD score. -Blood work -EGD -Continue spironolactone and lasix -Added lactulose -f/u in 3 months Orders: Orders Prothrombin Time w/INR Today K74.60 - Unspecified cirrhosis of liver Comprehensive Metabolic Profil Today K74.60 - Unspecified cirrhosis of liver, R18.8 - Other ascites CBC W/Diff, Automated Today K74.60 - Unspecified cirrhosis of liver Medications: New lactulose 20 grams (30 mL) PO BID 600 mL 2RF
--- NOTE | 2024-05-16 11:07 | PCM.PRE.AN2 ---
ASA Classification* ASA Classification ASA Classification: 4 Assessment & Plan Anesthesia* Anesthesia Assessment Anesthesia Assessment: Discussed sedation and/or anesthesia options, risks, benefits, and alternatives with patient/parents/legal guardian/POA. Questions invited. The patient/parents/legal guardian/POA seems to understand and agrees to proceed with anesthesia plan. Reviewed the physical assessment, medical history, allergy history and patient home medications list prior to surgery/procedure/anesthetic and documented any changes. Performed airway and anesthesia risk assessments. Anesthesia Type Anesthesia Type: MAC History Source History Obtained from:: Patient and Chart Anesthesia Focused Assessment* Temperature: 97.6 F Pulse Rate: 98 Blood Pressure: 123/89 Respiratory Rate: 16 Pulse Ox: 100 Oxygen Delivery Method: Room Air Airway Assessment Mouth opens: 2 cm Mallampati Score: IV Teeth Condition: Caps/Crowns (Patient has a right lower molar crown. It is tight.) Neck Range of motion (ROM): Limited ROM Focused Labs Anesthesia Preop lab: CBC WBC 5.7 K/mm3 (4.4-11.0) 03/26/24 11:48 RBC 4.31 M/mm3 (4.6-6.2) L 03/26/24 11:48 Hgb 13.4 g/dL (13.0-16.5) 03/26/24 11:48 Hct 42.4 % (40-54) 03/26/24 11:48 Plt Count 277 K/mm3 (150-450) 03/26/24 11:48 CHEMISTRY Potassium 3.8 mmol/L (3.5-5.1) 04/02/24 15:37 Sodium 139 mmol/L (136-145) 04/02/24 15:37 Magnesium 2.1 mg/dL (1.6-2.6) 02/22/24 11:27 Phosphorus 3.7 mg/dL (2.5-4.9) 02/21/24 00:03 BUN 20 mg/dL (7-18) H 04/02/24 15:37 Creatinine 1.20 mg/dL (0.70-1.30) 04/02/24 15:37 Glucose 101 mg/dL (74-106) 04/02/24 15:37 TSH 3.250 uIU/mL (0.358-3.740) 02/20/24 19:32 COAG PT 17.3 SECONDS (11.7-14.9) H 03/26/24 11:48 Pre-Assessment Diagnosis/Proposed Procedure Planned Operative Procedure(s): EGD Anesthesia History Anesthesia History - global human resources director: Anesthesia History - global human resources director Hx Hospitalization Yes: 02/2024 HEART ISSUES/ 05/13/24 11:39 PARACENTIS OF ABD. Any Problems With Anesthesia No 05/13/24 11:39 Cholinesterase deficiency No 05/13/24 11:39 You/Your Family Experience No 05/13/24 11:39 fever (hyperthermia) with Relationship Recent Exposure to Contagious No 05/16/24 10:31 Disease Does patient have nerve No 05/13/24 11:39 stimulator Patient instructed to have device shut off --Does patient have Pacemaker No 05/16/24 10:31 or ICD? When Was Last Pacemaker Check QUESTION #4 FULL TEXT: You/Your Family Experience fever (hyperthermia) with Anesthesia Last Oral Intake Last Oral intake: Last Oral Intake NPO since 22:00 05/16/24 10:31 Meds taken in AM with sips of Yes 05/16/24 10:31 water? Meds patient instructed to COREG 05/16/24 10:31 take am of surgery LAST ELIQUIS 05/13/24 AM DOSE Any additional information?: Yes NPO since: 08:30 (Patient took his Coreg at 8:30 AM.) Meds taken in AM with sips of water?: Yes PONV PONV - global human resources director: PONV - global human resources director Female No 05/13/24 11:39 HX of Motion Sickness No 05/13/24 11:39 HX of N/V After Surgery No 05/13/24 11:39 Non-Smoker Yes 05/13/24 11:39 Duration of Surgery greater No 05/13/24 11:39 than 60 minutes Number of Risk Factors 1 05/13/24 11:39 PONV Score Low Risk 05/13/24 11:39 Height & Weight Height & Weight: Anesthesia: Height & Weight Height 6 ft 05/16/24 10:31 Weight: 79 kg 05/16/24 10:31 Body Mass Index (BMI) 23.6 05/16/24 10:31 Respiratory Assessment Respiratory Assessment - global human resources director: Respiratory Tract Infection Hx - global human resources director Hx Respiratory Tract Infection No 05/13/24 11:39 STOP Sleep Apnea STOP Sleep Apnea - global human resources director: STOP Sleep Apnea - global human resources director Hx Hypertension No 05/13/24 11:39 Hx Sleep Apnea No 05/13/24 11:39 CPAP BIPAP Do you snore loudly (louder No 05/13/24 11:39 than talking or can be heard Do you often feel tired/ Yes 05/13/24 11:39 fatigued/ sleepy during daytime? Has anyone observed you stop No 05/13/24 11:39 breathing during sleep? STOP Results Negative 05/13/24 11:39 QUESTION #5 FULL TEXT : Do you snore loudly (louder than talking or can be heard through closed doors)? Tobacco Use History Tobacco Use History - global human resources director: Tobacco Use History - global human resources director Tobacco Use Smoking Status Never smoker 05/13/24 11:39 Hx Tobacco Use No 05/13/24 11:39 Years Smoking Packs Smoked per Day Smoking Cessation Date was within the last 15 years Hx Smoking Cessation Date Hx Smoking Cessation Counseling Hematologic Medial History Hematologic Hx - global human resources director: Hematologic Medical Hx - access consultant Hx of Blood Transfusion No 05/13/24 11:39 Hx of Transfusion in last 3 No 05/13/24 11:39 Months Date of Last Transfusion (if within last 3 months) Ever experience any problems No 05/13/24 11:39 with transfusion(s)? Specify any problems Hx of Preganancy in last 3 N/A 05/13/24 11:39 Months Nurse Filling Out Transfusion DSCHRIBER 05/13/24 11:39 & Questions: Date: 05/13/24 05/13/24 11:39 Time: 11:42 05/13/24 11:39 Patient unable to answer at this time (ie. confused, unrespo /Reproduction History /Reproductive History - global human resources director: /Reproductive Hx- global human resources director Hx Now No 05/13/24 11:39 Gestational Age (in weeks): EDC: Hx Hx Para Hx Section SAB No 05/13/24 11:39 PFSH Medical History Wears glasses Wrist injury Loss of consciousness Injury of back Dietary restriction Shortness of breath on exertion History of pain when walking History of edema History of echocardiogram History of stress test Cardiology follow-up encounter History of atrial fibrillation Non-smoker Coronary artery disease Hypertension Pure hypercholesterolemia Essential hypertension Atherosclerosis of coronary artery bypass graft without angina pectoris Non-ST elevation (NSTEMI) myocardial infarction White coat syndrome with hypertension RBBB Premature ventricular contraction Nonrheumatic aortic valve insufficiency Atherosclerosis of coronary artery of [place] heart without angina pectoris Non-alcoholic fatty liver disease Home Medications ?Medication ?Instructions ?Recorded ?Last Taken ?Type aspirin 81 mg tablet,delayed [address] [facility] 05/24/17 03/08/24 History release (Adult Aspirin Regimen) dapagliflozin propanediol 10 mg 10 mg PO QAM #60 tabs 03/08/24 Unknown Rx tablet spironolactone 25 mg tablet 25 mg PO QDAY #90 tabs 03/08/24 Unknown Rx apixaban 5 mg tablet (Eliquis) 5 mg PO BID #60 tabs 03/25/24 05/13/24 08:00 Rx lactulose 10 gram/15 mL (15 mL) 20 g (30 mL) PO BID 30 days #1,800 04/02/24 Unknown Rx oral solution mL carvedilol 12.5 mg tablet 6.25 mg (1/2 x 12.5 mg) PO BID #60 04/04/24 05/16/24 08:30 Rx tabs furosemide 40 mg tablet 40 mg PO .COMPLEX #180 tabs 04/04/24 Unknown Rx Allergy/AdvReac Type Severity Reaction Status Date / Time pravastatin sodium (From Allergy Unknown Verified 05/13/24 11:36 Pravachol) carvedilol (From Coreg) AdvReac Intermediate diarrhea Verified 05/13/24 11:36 atorvastatin calcium (From AdvReac Pain in Verified 05/13/24 11:36 Lipitor) joints gemfibrozil AdvReac myalgia Verified 05/13/24 11:36 Family History Mother CAD (coronary artery disease) Hypertension Grandmother Myocardial infarction Surgical History History of cardiac catheterization Hx of colonoscopy History of coronary artery stent placement History of esophagogastroduodenoscopy (EGD) (~2014) H/O coronary artery bypass surgery (~08/12/15) Social History Smoking Status: Never smoker alcohol intake: current details: rare substance use type: does not use Review of Systems (Anesthesia) ROS Narrative System reviewed and no additional complaints, except as documented.
--- NOTE | 2024-05-16 11:15 | EGD_PTH ---
PATIENT: SEVERIANO HERNANDEZ LOC: EN U#:[id number] AGE/SX: 69/M ROOM: RE05/16/[address]: Dr. Gerald Carroll DO : 1955 BED: DIS: 05/16/2024 SPEC #: [id number] RECD: 05/16/24 16:47 STATUS: JACKIE REMohan #: [id number] LETICIA: 05/16/24 11:[address]: Gerald Carroll DEPT: SURGICAL PATHOLOGY RECD BY: Dee Dee Casiano ENTERED: 05/17/24 09:50 SP TYPE: EGD BIOPSY OT DR: Dr. Cliff Pardo MD Tissues: Duodenum, NOS Procedures: Surgery Specimen Level IV HEADER OPERATION: EGD, biopsy PRE-OP DIAGNOSIS: Cirrhosis of liver TISSUE SUBMITTED: Duodenum biopsy MICROSCOPIC DIAGNOSIS Duodenum, biopsy: Fragments of duodenal mucosa with moderate chronic inflammation and extensive gastric metaplasia. See comment. 05/20/2024 COMMENT Clinical correlation and appropriate follow up are necessary. MICROSCOPIC DESCRIPTION Slides are reviewed. GROSS DESCRIPTION Received in fixative is one container labeled with the patient's name and designated Duodenum biopsy. The specimen consists of multiple irregular fragments of light solorzano soft tissue that in aggregate measure 0.9 x 0.2 x 0.1 cm. The specimen is totally submitted in one cassette. MS/mr 05/17/2024 TC:3 CPT:49875
--- NOTE | 2024-05-16 12:18 | OP.EGD_ITS ---
Patient Name: Lester Fowler Procedure Date: 05/16/2024 12:10 PM Date of : 1955 Age: 69 Procedure: Upper GI endoscopy Indications: Cirrhosis with suspected esophageal varices Providers: Gerald Carroll DO Referring MD: Cliff Pardo MD Medicines: Monitored Anesthesia Care Patient Profile: This is a 69 year old male. Refer to note in patient chart for documentation of history and physical. Patient has symptoms of chronic dyspepsia and chronic nausea. Complications: No immediate complications. Procedure: Pre-Anesthesia Assessment: - Prior to the procedure, a History and Physical was performed, and patient medications and allergies were reviewed. The patient is competent. The risks and benefits of the procedure and the sedation options and risks were discussed with the patient. All questions were answered and informed consent was obtained. Patient identification and proposed procedure were verified by the physician in the pre-procedure area. Mental Status Examination: alert and oriented. Airway Examination: normal oropharyngeal airway and neck mobility. Respiratory Examination: clear to auscultation. CV Examination: normal. Prophylactic Antibiotics: The patient does not require prophylactic antibiotics. Prior Anticoagulants: The patient has taken no anticoagulant or antiplatelet agents. ASA Grade Assessment: III - A patient with severe systemic disease. After reviewing the risks and benefits, the patient was deemed in satisfactory condition to undergo the procedure. The anesthesia plan was to use monitored anesthesia care (MAC). Immediately prior to administration of medications, the patient was re-assessed for adequacy to receive sedatives. The heart rate, respiratory rate, oxygen saturations, blood pressure, adequacy of pulmonary ventilation, and response to care were monitored throughout the procedure. The physical status of the patient was re-assessed after the procedure. After obtaining informed consent, the endoscope was passed under direct vision. Throughout the procedure, the patient's blood pressure, pulse, and oxygen saturations were monitored continuously. The gastroscope was introduced through the mouth, and advanced to the second part of duodenum. The upper GI endoscopy was accomplished without difficulty. The patient tolerated the procedure well. Scope In: 12:10:46 PM Scope Out: 12:13:23 PM Total Procedure Duration Time 0 hours 2 minutes 37 seconds Findings: The examined esophagus was normal. No gross lesions were noted in the entire examined stomach. Localized nodular mucosa was found in the duodenal bulb. Biopsies were taken with a cold forceps for histology. Verification of patient identification for the specimen was done. Estimated blood loss was minimal. Impression: - Normal esophagus. - No gross lesions in the entire stomach. - Nodular mucosa in the duodenal bulb. Biopsied. Recommendation: - Discharge patient to home. - Resume previous diet. - Continue present medications. - Await pathology results. Procedure Code(s): --- Professional --- 63877, Esophagogastroduodenoscopy, flexible, transoral; with biopsy, single or multiple CPT copyright 2021 [employer]. All rights reserved. The codes documented in this report are preliminary and upon non destructive testing supervisor review may be revised to meet current compliance requirements. Gerald Carroll DO 05/16/2024 12:17:36 PM This report has been signed electronically. Number of Addenda: 0 Note Initiated On: 05/16/2024 12:10 PM
--- NOTE | 2024-05-16 12:18 | OP.CCLET_ITS ---
05/16/2024 Cliff Pardo MD [address] [place] [address] Re : Upper GI endoscopy procedure for Lester Fowler Dear Dr. Pardo This procedure was performed on May. My impressions and recommendations are as follows: Impressions : - Normal esophagus. - No gross lesions in the entire stomach. - Nodular mucosa in the duodenal bulb. Biopsied. Recommendations : - Discharge patient to home. - Resume previous diet. - Continue present medications. - Await pathology results. My findings are described in the full procedure note, which is enclosed. If I can be of further assistance, please feel free to contact me at . Sincerely, Gerald Carroll, 05/16/2024 12:17:36 PM This report has been signed electronically.
--- NOTE | 2024-05-16 12:22 | PCM.POST.ANE ---
Anesthesia: Postop Eval I Current Vital Signs Temperature: 97.4 F Pulse Rate: 84 Blood Pressure: 78/56 Respiratory Rate: 14 Pulse Ox: 99 Oxygen Delivery Method: Room Air Assessment Airway patent: Yes Spontaneous unlabored respirations: Yes Mental status: Asleep nausea: No Vomiting: No Anesthesia Complication: No Fluid Hydration Crystalloid volume administer (ml): 20 Total IV fluid infused: 20 Progress Note Anesthesia document: Postop Eval 1 completed: Yes
--- NOTE | 2024-05-16 13:43 | PCM.POSTANE2 ---
Anesthesia Postop Eval I Sum Postop Eval Completion status Anesthesia document: Postop Eval 1 completed: Yes Anesthesia Postop Eval I Summary Anesthesia Postop Eval I Summary: Anesthesia Postop Eval I: Assessment Summary Airway patent Yes 05/16/24 12:23 [email or web address] Spontaneous unlabored Yes 05/16/24 12:23 [email or web address] respirations Mental status Asleep 05/16/24 12:23 [email or web address] nausea No 05/16/24 12:23 [email or web address] Vomiting No 05/16/24 12:23 [email or web address] Anesthesia Postop Eval I: Fluid Summary Crystalloid volume administer 20 05/16/24 12:23 [email or web address] (ml) Colloids volume administered ( ml) Blood Product volume administered (ml) Total IV fluid infused 20 05/16/24 12:23 [email or web address] Anesthesia Postop Eval I: Summary Notes Anesthesia Complication No 05/16/24 12:23 [email or web address] Anesthesia Complication Comment: Post-operative progress note Anesthesia: Postop Eval II Evaluation Mental status: Awake and Calm Pain Level: 0 nausea: No Vomiting: No Complications Anesthesia Complication: No
== END 2024-05-16 12:55 | disposition home or self-care (01) ==
LOC: EN 10:07 → AC 10:08
PROVIDERS: PCP Family Medicine Geriatric Medicine; Referring Provider Family Medicine Geriatric Medicine; Visit Provider Internal Medicine Gastroenterology
PROC: 0DJ08ZZ Inspection of Upper Intestinal Tract, Via Natural or Artificial Opening Endoscopic (ICD-10-PCS; CPT 43235; principal; 2024-05-16 11:10)
DX: K31.A19 Gastric intestinal metaplasia without dysplasia, unspecified site (principal); K74.60 Unspecified cirrhosis of liver; I11.0 Hypertensive heart disease with heart failure; I50.9 Heart failure, unspecified; I25.10 Atherosclerotic heart disease of native coronary artery without angina pectoris; E78.00 Pure hypercholesterolemia, unspecified; K75.81 Nonalcoholic steatohepatitis (NASH); R18.8 Other ascites; K29.80 Duodenitis without bleeding; Z79.899 Other long term (current) drug therapy
CPT/HCPCS: 43239; 88305; A4216; J2405

== ENCOUNTER → 2024-05-21 | Outpatient (CLI) | payer MEDICARE, OTHER, SELFPAY ==
[2018-07-27 13:33] VITALS: BMI 27.7
--- NOTE | 2024-05-21 07:49 | ECHOCS_ITS ---
Version 2 Reason For Study: Cardiomyopathy Procedure This was a 2D Doppler, Color Flow transthoracic echocardiogram. Myocardial strain analysis was performed in this exam to aid in the assessment of cardiac function. Contrast injection was performed. Exam performed in department. Left Ventricle Mildly dilated left ventricle. Apical false tendon noted. The left ventricular ejection fraction is 10 %. There is severe global hypokinesis of the left ventricle. Right Ventricle Normal RV size. Normal systolic function. Atria Normal left atrium. Normal right atrium. Mitral Valve Bileaflet diffuse mitral valve thickening. Mild (1+) mitral valve insufficiency. Tricuspid Valve Normal tricuspid valve. Mild (1+) tricuspid valve insufficiency. Pulmonary artery systolic pressure is 34 mmHg. Aortic Valve Mild diffuse aortic valve thickening. Mild-Moderate (1-2+) eccentric aortic valve insufficiency. Pulmonic Valve Normal pulmonic valve. Trivial pulmonic valve insufficiency. Great Vessels Mildly dilated aortic root. Medication Diluted definity 1.5ml given slow IV push to enhance endocardial definition. MMode/2D Measurements & Calculations LVIDd: 5.9 cm IVSd: 1.0 cm asc Aorta Diam: 3.7 cm LVIDs: 5.5 cm LVPWd: 1.1 cm RVDd: 4.6 cm FS: 7.2 % LAV(MOD-sp4): 74.6 ml LVAd ap4: 51.2 cm2 SV(MOD-sp4): 23.0 ml LVLd ap4: 9.6 cm SI(MOD-sp4): 11.7 ml/m2 EDV(MOD-sp4): 230.6 ml EDV(sp4-el): 231.5 ml LVAs ap4: 47.4 cm2 LVLs ap4: 9.4 cm ESV(MOD-sp4): 207.6 ml ESV(sp4-el): 201.8 ml EF(MOD-sp4): 10.0 % EF(sp4-el): 12.8 % SV(sp4-el): 29.6 ml LA A4 area: 25.2 cm2 LA dimension(2D): 4.3 cm RA A4 area: 20.8 cm2 TAPSE: 1.0 cm Doppler Measurements & Calculations MV E max mariusz: 93.1 cm/sec Lat Peak E' Mariusz: 7.8 cm/sec Med Peak E' Mariusz: 3.5 cm/sec E/E' lat: 11.9 E/E' med: 26.3 Ao V2 max: 118.8 cm/sec AI max mariusz: 423.0 cm/sec PA V2 max: 42.6 cm/sec Ao max P.7 mmHg AI max P.6 mmHg Ao V2 mean: 81.5 cm/sec Ao mean P.0 mmHg AI dec slope: 240.5 cm/sec2 Ao V2 VTI: 19.7 cm AI P1/2t: 515.1 msec TR max mariusz: 270.1 cm/sec TR max P.2 mmHg ECHO/Echo Complete W/ Contrast Interpretation Summary The left ventricular ejection fraction is 10 %. Mildly dilated left ventricle. There is severe global hypokinesis of the left ventricle. Mild (1+) mitral valve insufficiency. Mild-Moderate (1-2+) eccentric aortic valve insufficiency. The global longitudinal strain is severely abnormal. The global longitudinal st rain = -5% (abnormal). Compared to previous study, the left ventricular systolic function is the same.. Ordering Physician: Stefanie Dunaway Referring Physician: Cliff Pardo Chi Performed By: Vanna Grigsby, ROLLY, RVT
== END | disposition home or self-care (01) ==
LOC: CVS 07:48
PROVIDERS: PCP Family Medicine Geriatric Medicine; Referring Provider Physician Assistant Medical; Visit Provider Physician Assistant Medical
DX: R06.02 Shortness of breath (principal); I42.9 Cardiomyopathy, unspecified
CPT/HCPCS: 93306; Q9957; A4216; C8929

== ENCOUNTER → 2024-05-24 | Outpatient (CLI) | payer MEDICARE, OTHER, SELFPAY ==
[2018-07-27 13:33] VITALS: BMI 27.7
[2024-05-26 15:07] LABS: H. PYLORI STOOL AG Negative (Negative)
== END | disposition home or self-care (01) ==
LOC: LABSPEC 14:20
PROVIDERS: PCP Family Medicine Geriatric Medicine; Referring Provider Student in an Organized Health Care Education/Training Program; Visit Provider Student in an Organized Health Care Education/Training Program
DX: K29.80 Duodenitis without bleeding (principal)

== ENCOUNTER → 2024-06-10 | Outpatient (CLI) | payer MEDICARE, OTHER, SELFPAY ==
[2018-07-27 13:33] VITALS: BMI 27.7
[2024-06-10 11:13] LABS: Erythrocyte Sedimentation Rate 12 mm/hr (0-20)
[2024-06-10 11:27] LABS: Anion Gap 6 (5-15); BUN 22 mg/dL (7-18); BUN/Creat Ratio 17.5 RATIO (10-20); CPK Total, Creatine Kinase 92 U/L (39-308); Calcium,Total 9.4 mg/dL (8.5-10.1); Chloride 106 mmol/L (98-107); Creatinine, Serum 1.26 mg/dL (0.70-1.30); EST Glomerular Filtration Rate 60 mL/min (>60); Est Glom Filt Rate - Afr Amer 73 mL/min (>60); Glucose 132 mg/dL (74-106); Potassium 3.6 mmol/L (3.5-5.1); Sodium Level 138 mmol/L (136-145)
== END | disposition home or self-care (01) ==
LOC: LAB 09:38
PROVIDERS: PCP Family Medicine Geriatric Medicine; Referring Provider Physician Assistant Medical; Visit Provider Physician Assistant Medical
DX: M79.10 Myalgia, unspecified site (principal)
CPT/HCPCS: 36415; 80048; 82550; 85652

== ENCOUNTER → 2024-06-25 | Outpatient (CLI) | payer MEDICARE, OTHER, SELFPAY ==
[2018-07-27 13:33] VITALS: BMI 27.7
[2024-06-25 10:42] LABS: Absolute Lymphocyte Count 1.33 X10^3/uL (0.83-4.51); Absolute Neutrophil Count 5.2 X10^3/uL (2.0-7.7); Basophil# 0.07 X10^3/uL; Basophil% 0.9 % (0-1); Eosinophil# 0.56 X10^3/uL; Eosinophils% 7.1 % (0-5); Hematocrit 45.9 % (40-54); Hemoglobin 15.5 g/dL (13.0-16.5); Lymphocyte # 1.33 X10^3/ul (0.83-4.51); Lymphocyte % 16.9 % (19-41); Mean Corp Hgb Conc 33.8 g/dL (32-36); Mean Corpuscular Hgb 31.1 pg (27.0-32.0); Mean Platelet Vol. 8.6 fl (6.2-12.0); Monocyte# 0.71 X10^3/uL; NRBC Flagged by Analyzer 0 % (0-5); Neutrophil # 5.15 X10^3/uL (2.7-7.7); Neutrophil % 65.7 % (47-70); Platelet Count 267 K/mm3 (150-450); RBC Distribution Width CV 13.9 % (11.6-14.6); RBC Distribution Width SD 47.3 fl (35.1-43.9); Red Blood Count 4.99 M/mm3 (4.6-6.2); White Blood Count 7.9 K/mm3 (4.4-11.0)
[2024-06-25 10:54] LABS: International Normalized Ratio 1.3; Prothrombin Time (Protime)PT. 16.2 SECONDS (11.7-14.9)
[2024-06-25 11:11] LABS: Vitamin D,25 Hydroxy 45.9 ng/mL
[2024-06-26 02:57] LABS: ALB/GLOB Ratio 1.2 RATIO (0.9-2.4); AST(SGOT) 16 U/L (15-37); Alanine Aminotransfer ALT/SGPT 21 U/L (16-61); Albumin, Serum 4.2 g/dL (3.2-5.0); Alkaline Phosphatase 92 U/L (45-117); Anion Gap 9 (5-15); BUN 20 mg/dL (7-18); BUN/Creat Ratio 14.8 RATIO (10-20); Bilirubin, Direct 0.58 mg/dL (0.00-0.30); Calcium,Total 9.5 mg/dL (8.5-10.1); Chloride 104 mmol/L (98-107); Cholesterol 176 mg/dL (200); Creatinine, Serum 1.35 mg/dL (0.70-1.30); EST Glomerular Filtration Rate 55 mL/min (>60); Est Glom Filt Rate - Afr Amer 67 mL/min (>60); Globulin 3.5 g/dL (2.2-4.2); Glucose 129 mg/dL (74-106); High Density Lipoprotein 55 mg/dL; Magnesium 2.4 mg/dL (1.6-2.6); Phosphorus 4.2 mg/dL (2.5-4.9); Potassium 3.7 mmol/L (3.5-5.1); Protein, Total 7.7 g/dL (6.4-8.2); Sodium Level 141 mmol/L (136-145); Triglycerides 117 mg/dL; Very Low Density Lipoprotein 23 mg/dL (5-40)
== END | disposition home or self-care (01) ==
PROVIDERS: PCP Family Medicine Geriatric Medicine; Referring Provider Internal Medicine; Visit Provider Internal Medicine
DX: K74.60 Unspecified cirrhosis of liver (principal); I50.9 Heart failure, unspecified; K76.0 Fatty (change of) liver, not elsewhere classified; E78.00 Pure hypercholesterolemia, unspecified; R18.8 Other ascites; R19.7 Diarrhea, unspecified; M81.0 Age-related osteoporosis without current pathological fracture
CPT/HCPCS: 36415; 80053; 80061; 82248; 82306; 83735; 84100; 85025; 85610

== ENCOUNTER → 2024-07-10 | Outpatient (CLI) | payer MEDICARE, OTHER, SELFPAY ==
[2018-07-27 13:33] VITALS: BMI 27.7
--- NOTE | 2024-07-10 07:42 | US_ITS ---
PROCEDURE: ABD LIMITED W/ ELASTOGRAPHY REASON FOR EXAM: Cirrhosis. COMPARISON: None. TECHNIQUE: Right upper quadrant abdominal ultrasound. Tariq ElastQ Imaging shear wave elastography for non-invasive assessment of liver tissue stiffness. Tariq EPIQ Elite. FINDINGS: LIVER: Size: Unremarkable Length: 15.6 cm cm Echotexture: Coarsened Contour: Normal Lesions: None identified Elastography: EQI Med: 8.73 kPa EQI Med Mariusz: 1.71 m/s IQR/Med: 50 %* GALLBLADDER: Multiple gallstones. COMMON BILE DUCT: Normal measures 1.6 mm. PANCREAS: Obscured by bowel gas. Visualized portions of the right kidney are unremarkable. No right upper quadrant ascites. US/ABD Limited w/ Elastography IMPRESSION: MODERATE TO SEVERE HEPATIC FIBROSIS Reference Values: SRU <1.37 m/s (5.7kPa): No to mild fibrosis 1.37 m/s - 2.2 m/s: Moderate to severe fibrosis >2.2 m/s (15kPa): Significant fibrosis / cirrhosis METAVIR Score F2 or higher: 1.34 m/s (5.7kPa) F3 or higher: 1.55 m/s (7.3kPa) F4: 1.80 m/s (10kPa) * If the IQR/Med is >30%, the variance in the measurements is a large and the a ccuracy of the measurement may be in question. Reading Location: [id number]
== END | disposition home or self-care (01) ==
LOC: US 07:41
PROVIDERS: PCP Family Medicine Geriatric Medicine; Referring Provider Internal Medicine; Visit Provider Internal Medicine
DX: I50.9 Heart failure, unspecified (principal); K74.60 Unspecified cirrhosis of liver; K76.0 Fatty (change of) liver, not elsewhere classified; E78.00 Pure hypercholesterolemia, unspecified; R60.0 Localized edema
CPT/HCPCS: 76705; 76981

== ENCOUNTER → 2024-07-16 | Outpatient (CLI) | payer MEDICARE, OTHER, SELFPAY ==
[2018-07-27 13:33] VITALS: BMI 27.7
[2024-07-16 11:06] LABS: Absolute Lymphocyte Count 1.35 X10^3/uL (0.83-4.51); Absolute Neutrophil Count 5.8 X10^3/uL (2.0-7.7); Basophil# 0.07 X10^3/uL; Basophil% 0.8 % (0-1); Eosinophil# 0.53 X10^3/uL; Eosinophils% 6.3 % (0-5); Hematocrit 51.7 % (40-54); Hemoglobin 16.9 g/dL (13.0-16.5); Lymphocyte # 1.35 X10^3/ul (0.83-4.51); Lymphocyte % 16.2 % (19-41); Mean Corp Hgb Conc 32.7 g/dL (32-36); Mean Corpuscular Hgb 30.8 pg (27.0-32.0); Mean Corpuscular Volume 94.2 fL (80-94); Mean Platelet Vol. 8.8 fl (6.2-12.0); Monocyte# 0.61 X10^3/uL; Monocyte% 7.3 % (0-10); NRBC Flagged by Analyzer 0 % (0-5); Neutrophil # 5.77 X10^3/uL (2.7-7.7); Neutrophil % 69.2 % (47-70); Platelet Count 307 K/mm3 (150-450); RBC Distribution Width CV 13.6 % (11.6-14.6); RBC Distribution Width SD 47.9 fl (35.1-43.9); Red Blood Count 5.49 M/mm3 (4.6-6.2); White Blood Count 8.4 K/mm3 (4.4-11.0)
[2024-07-16 11:55] LABS: Vitamin D,25 Hydroxy 47.6 ng/mL (30-100)
[2024-07-16 12:35] LABS: ALB/GLOB Ratio 1.2 RATIO (0.9-2.4); Alanine Aminotransfer ALT/SGPT 14 U/L (<=46); Albumin, Serum 4.6 g/dL (3.4-4.8); Alkaline Phosphatase 94 U/L (40-129); Anion Gap 14 (5-15); BUN 18 mg/dL (4-19); BUN/Creat Ratio 13.1 RATIO (10-20); Calcium,Total 10.3 mg/dL (7.6-11.0); Carbon Dioxide 25.4 mmol/L (21.0-32.0); Chloride 101 mmol/L (98-108); Creatinine, Serum 1.34 mg/dL (0.70-1.20); EST Glomerular Filtration Rate 57 (>60); Globulin 3.8 g/dL (2.2-4.2); Glucose 123 mg/dL (70-99); Protein, Total 8.4 g/dL (5.9-8.4); Sodium Level 141 mmol/L (133-145); Total Bilirubin 2.26 mg/dL (0.00-1.30)
[2024-07-16 12:50] LABS: AST(SGOT) 22 U/L (<=37)
== END | disposition home or self-care (01) ==
LOC: POLAB3 10:04
PROVIDERS: PCP Family Medicine Geriatric Medicine; Visit Provider Family Medicine Geriatric Medicine
DX: I10 Essential (primary) hypertension (principal); E55.9 Vitamin D deficiency, unspecified
CPT/HCPCS: 36415; 80053; 82306; 84443; 85025

== ENCOUNTER → 2024-09-27 | Outpatient (CLI) | payer MEDICARE, OTHER, SELFPAY ==
[2018-07-27 13:33] VITALS: BMI 27.7
--- NOTE | 2024-09-27 10:39 | ECHOL_ITS ---
Reason For Study Reason For Study: CHF Procedure This was a limited 2D transthoracic echocardiogram. Myocardial strain analysis was performed in this exam to aid in the assessment of cardiac function. Exam performed in department. Left Ventricle Moderately dilated left ventricle. The left ventricular ejection fraction is 25 %. Severe segmental systolic dysfunction (see wall motion). Infero-Basal: Akinetic. Basal inferoseptal: Akinetic. The rest of the wall segments are hypokinetic. Right Ventricle Normal RV size. Normal systolic function. Atria Normal left atrium. Mitral Valve Normal mitral valve. Tricuspid Valve Normal tricuspid valve. Mild (1+) tricuspid valve insufficiency. Pulmonary artery systolic pressure is 28 mmHg. Aortic Valve Trisinus/trileaflet aortic valve. Pulmonic Valve Normal pulmonic valve. Great Vessels Normal aortic root. Pericardium/Pleural No pericardial effusion. MMode/2D Measurements & Calculations LVIDd: 6.0 cm IVSd: 0.95 cm LVAd ap4: 46.5 cm2 LVIDs: 5.2 cm LVPWd: 1.0 cm LVLd ap4: 9.5 cm FS: 14.2 % EDV(MOD-sp4): 193.5 ml EDV(sp4-el): 192.5 ml LVAs ap4: 38.9 cm2 LVLs ap4: 9.1 cm ESV(MOD-sp4): 147.3 ml ESV(sp4-el): 140.5 ml EF(MOD-sp4): 23.9 % EF(sp4-el): 27.0 % LVAd ap2: 43.8 cm2 SV(MOD-sp4): 46.2 ml SV(MOD-sp2): 39.1 ml LVLd ap2: 9.7 cm SI(MOD-sp4): 23.1 ml/m2 SI(MOD-sp2): 19.5 ml/m2 EDV(MOD-sp2): 166.2 ml EDV(sp2-el): 168.4 ml LVAs ap2: 36.8 cm2 LVLs ap2: 9.0 cm ESV(MOD-sp2): 127.0 ml ESV(sp2-el): 127.1 ml EF(MOD-sp2): 23.6 % SV(sp4-el): 52.0 ml Doppler Measurements & Calculations TR max marilia: 248.0 cm/sec TR max P.6 mmHg ECHO/Echo, Limited Study Interpretation Summary The left ventricular ejection fraction is 25 %. Severe segmental systolic dysfunction (see wall motion). Moderately dilated left ventricle. Compared to previous study, the left ventricular systolic function has improved .. Ordering Physician: Stefanie Dunaway Referring Physician: HANDY TAYLOR Performed By: Micheline Lopez RDCS
== END | disposition home or self-care (01) ==
LOC: CVS 10:38
PROVIDERS: PCP Family Medicine Geriatric Medicine; Referring Provider Physician Assistant Medical; Visit Provider Physician Assistant Medical
DX: R94.31 Abnormal electrocardiogram [ECG] [EKG] (principal); I50.9 Heart failure, unspecified
CPT/HCPCS: 93308

== ENCOUNTER → 2024-10-08 | Outpatient (CLI) | payer MEDICARE, OTHER, SELFPAY ==
[2018-07-27 13:33] VITALS: BMI 27.7
[2024-10-08 11:02] LABS: Absolute Lymphocyte Count 1.45 X10^3/uL (0.83-4.51); Absolute Neutrophil Count 5.4 X10^3/uL (2.0-7.7); Basophil# 0.08 X10^3/uL; Eosinophil# 0.33 X10^3/uL; Eosinophils% 4.2 % (0-5); Hematocrit 48.4 % (40-54); Hemoglobin 16.5 g/dL (13.0-16.5); Lymphocyte # 1.45 X10^3/ul (0.83-4.51); Lymphocyte % 18.4 % (19-41); Mean Corp Hgb Conc 34.1 g/dL (32-36); Mean Corpuscular Hgb 31.4 pg (27.0-32.0); Mean Platelet Vol. 8.7 fl (6.2-12.0); Monocyte# 0.67 X10^3/uL; Monocyte% 8.5 % (0-10); NRBC Flagged by Analyzer 0 % (0-5); Neutrophil # 5.35 X10^3/uL (2.7-7.7); Neutrophil % 67.6 % (47-70); Platelet Count 269 K/mm3 (150-450); RBC Distribution Width CV 13.4 % (11.6-14.6); RBC Distribution Width SD 45.8 fl (35.1-43.9); Red Blood Count 5.26 M/mm3 (4.6-6.2); White Blood Count 7.9 K/mm3 (4.4-11.0)
[2024-10-08 11:29] LABS: International Normalized Ratio 1.2; Prothrombin Time (Protime)PT. 15.3 SECONDS (11.7-14.9)
[2024-10-08 12:14] LABS: ALB/GLOB Ratio 1.3 RATIO (0.9-2.4); AST(SGOT) 23 U/L (<=37); Alanine Aminotransfer ALT/SGPT 14 U/L (<=46); Albumin, Serum 4.3 g/dL (3.4-4.8); Alkaline Phosphatase 92 U/L (40-129); Anion Gap 13 (5-15); BUN 14 mg/dL (4-19); BUN/Creat Ratio 11.6 RATIO (10-20); Calcium,Total 9.6 mg/dL (7.6-11.0); Chloride 101 mmol/L (98-108); Creatinine, Serum 1.19 mg/dL (0.70-1.20); EST Glomerular Filtration Rate 65 (>60); Globulin 3.3 g/dL (2.2-4.2); Glucose 134 mg/dL (70-99); Magnesium 2.4 mg/dL (1.5-2.2); Phosphorus 3.5 mg/dL (2.7-4.5); Potassium 3.6 mmol/L (3.3-5.1); Protein, Total 7.7 g/dL (5.9-8.4); Sodium Level 140 mmol/L (133-145)
[2024-10-10 14:40] LABS: Cholesterol 187 mg/dL (<=200); High Density Lipoprotein 54 mg/dL; Low Density Lipoprotein Calc. 107 mg/dL; Triglycerides 129 mg/dL; Very Low Density Lipoprotein 26 mg/dL (5-40); cholesterol:hdl ratio screen 3.46
== END | disposition home or self-care (01) ==
LOC: LAB 10:33
PROVIDERS: PCP Family Medicine Geriatric Medicine; Referring Provider Internal Medicine; Visit Provider Internal Medicine
DX: K74.60 Unspecified cirrhosis of liver (principal); I50.9 Heart failure, unspecified; R18.8 Other ascites; K76.0 Fatty (change of) liver, not elsewhere classified; R19.7 Diarrhea, unspecified
CPT/HCPCS: 36415; 80053; 80061; 82248; 83735; 84100; 85025; 85610

== ENCOUNTER → 2024-10-15 | Outpatient (CLI) | payer MEDICARE, OTHER, SELFPAY ==
[2018-07-27 13:33] VITALS: BMI 27.7
[2024-10-15 10:03] LABS: Anion Gap 11 (5-15); BUN 19 mg/dL (4-19); BUN/Creat Ratio 14.9 RATIO (10-20); Calcium,Total 9.7 mg/dL (7.6-11.0); Chloride 102 mmol/L (98-108); Creatinine, Serum 1.24 mg/dL (0.70-1.20); EST Glomerular Filtration Rate 62 (>60); Glucose 114 mg/dL (70-99); Sodium Level 139 mmol/L (133-145)
== END | disposition home or self-care (01) ==
LOC: LAB 09:14
PROVIDERS: PCP Family Medicine Geriatric Medicine; Referring Provider Nurse Practitioner Family; Visit Provider Nurse Practitioner Family
DX: I42.0 Dilated cardiomyopathy (principal); I48.3 Typical atrial flutter; E78.00 Pure hypercholesterolemia, unspecified; I10 Essential (primary) hypertension; I25.10 Atherosclerotic heart disease of native coronary artery without angina pectoris
CPT/HCPCS: 36415; 80048

== ENCOUNTER 2024-11-06 11:20 | Outpatient (RCR) | payer MEDICARE, OTHER, SELFPAY ==
[2018-07-27 13:33] VITALS: BMI 27.7
[2024-11-06 13:06] LABS: Anion Gap 12 (5-15); BUN 23 mg/dL (4-19); BUN/Creat Ratio 15.1 RATIO (10-20); Calcium,Total 9.5 mg/dL (7.6-11.0); Carbon Dioxide 22.4 mmol/L (21.0-32.0); Chloride 102 mmol/L (98-108); Creatinine, Serum 1.52 mg/dL (0.70-1.20); EST Glomerular Filtration Rate 49 (>60); Glucose 122 mg/dL (70-99); Potassium 4.3 mmol/L (3.3-5.1); Sodium Level 137 mmol/L (133-145)
== END 2024-11-06 18:00 | disposition home or self-care (01) ==
LOC: LAB 11:20
PROVIDERS: PCP Family Medicine Geriatric Medicine; Referring Provider Nurse Practitioner Family; Visit Provider Nurse Practitioner Family
DX: I42.0 Dilated cardiomyopathy (principal); I48.3 Typical atrial flutter; E78.00 Pure hypercholesterolemia, unspecified; I10 Essential (primary) hypertension
CPT/HCPCS: 36415; 80048

== ENCOUNTER → 2024-11-25 | Outpatient (CLI) | payer MEDICARE, OTHER, SELFPAY ==
[2018-07-27 13:33] VITALS: BMI 27.7
[2024-11-25 17:05] LABS: Hematocrit 46.1 % (40-54); Hemoglobin 15.9 g/dL (13.0-16.5); Immature Granulocytes Count 0.020 X10^3/uL (0.0-0.0); Mean Corp Hgb Conc 34.5 g/dL (32-36); Mean Corpuscular Volume 91.1 fL (80-94); Mean Platelet Vol. 8.7 fl (6.2-12.0); NRBC Flagged by Analyzer 0 % (0-5); Platelet Count 228 K/mm3 (150-450); RBC Distribution Width CV 13.7 % (11.6-14.6); RBC Distribution Width SD 46.2 fl (35.1-43.9); Red Blood Count 5.06 M/mm3 (4.6-6.2); White Blood Count 7.7 K/mm3 (4.4-11.0)
[2024-11-25 17:48] LABS: AST(SGOT) 22 U/L (<=37); Alanine Aminotransfer ALT/SGPT 14 U/L (<=46); Albumin, Serum 4.2 g/dL (3.4-4.8); Alkaline Phosphatase 74 U/L (40-129); Anion Gap 13 (5-15); BUN 22 mg/dL (4-19); BUN/Creat Ratio 15.7 RATIO (10-20); Calcium,Total 9.4 mg/dL (7.6-11.0); Carbon Dioxide 21.6 mmol/L (21.0-32.0); Chloride 103 mmol/L (98-108); Globulin 3.1 g/dL (2.2-4.2); Glucose 118 mg/dL (70-99); Potassium 4.0 mmol/L (3.3-5.1)
== END | disposition home or self-care (01) ==
LOC: LAB 11-26 08:34
PROVIDERS: PCP Family Medicine Geriatric Medicine; Referring Provider Nurse Practitioner Family; Visit Provider Nurse Practitioner Family
DX: I50.9 Heart failure, unspecified (principal); K74.60 Unspecified cirrhosis of liver; I42.0 Dilated cardiomyopathy; R18.8 Other ascites; K76.0 Fatty (change of) liver, not elsewhere classified; Z79.02 Long term (current) use of 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/antiplatelets
CPT/HCPCS: 36415; 80053; 85025

== ENCOUNTER → 2025-01-15 | Outpatient (CLI) | payer MEDICARE, OTHER, SELFPAY ==
[2018-07-27 13:33] VITALS: BMI 27.7
[2025-01-15 10:18] LABS: Hematocrit 47.9 % (40-54); Hemoglobin 16.3 g/dL (13.0-16.5); Immature Granulocytes Count 0.020 X10^3/uL (0.0-0.0); Mean Corp Hgb Conc 34.0 g/dL (32-36); Mean Corpuscular Volume 91.8 fL (80-94); Mean Platelet Vol. 8.8 fl (6.2-12.0); NRBC Flagged by Analyzer 0 % (0-5); Platelet Count 238 K/mm3 (150-450); RBC Distribution Width CV 13.2 % (11.6-14.6); RBC Distribution Width SD 45.3 fl (35.1-43.9); Red Blood Count 5.22 M/mm3 (4.6-6.2); White Blood Count 8.2 K/mm3 (4.4-11.0)
[2025-01-15 10:44] LABS: AST(SGOT) 23 U/L (<=37); Alanine Aminotransfer ALT/SGPT 19 U/L (<=46); Albumin, Serum 4.5 g/dL (3.4-4.8); Alkaline Phosphatase 67 U/L (40-129); Anion Gap 11 (5-15); BUN 26 mg/dL (4-19); BUN/Creat Ratio 17.9 RATIO (10-20); Calcium,Total 9.9 mg/dL (7.6-11.0); Carbon Dioxide 22.7 mmol/L (21.0-32.0); Chloride 103 mmol/L (98-108); Cholesterol 171 mg/dL (<=200); Globulin 2.9 g/dL (2.2-4.2); Glucose 115 mg/dL (70-99); Low Density Lipoprotein Calc. 94 mg/dL; Potassium 4.5 mmol/L (3.3-5.1); Triglycerides 62 mg/dL; Very Low Density Lipoprotein 12 mg/dL (5-40); cholesterol:hdl ratio screen 2.65
== END | disposition home or self-care (01) ==
LOC: LAB 09:28
PROVIDERS: PCP Family Medicine Geriatric Medicine; Referring Provider Nurse Practitioner Family; Visit Provider Nurse Practitioner Family
DX: E78.00 Pure hypercholesterolemia, unspecified (principal); I42.0 Dilated cardiomyopathy; I10 Essential (primary) hypertension; Z79.02 Long term (current) use of 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/antiplatelets
CPT/HCPCS: 36415; 80053; 80061; 85025

== ENCOUNTER → 2025-02-04 | Outpatient (CLI) | payer MEDICARE, OTHER, SELFPAY ==
[2018-07-27 13:33] VITALS: BMI 27.7
[2025-02-04 09:51] LABS: Prothrombin Time (Protime)PT. 14.4 SECONDS (11.7-14.9)
[2025-02-04 10:12] LABS: AST(SGOT) 24 U/L (<=37); Alanine Aminotransfer ALT/SGPT 16 U/L (<=46); Albumin, Serum 4.6 g/dL (3.4-4.8); Alkaline Phosphatase 71 U/L (40-129); Anion Gap 13 (5-15); BUN 22 mg/dL (4-19); BUN/Creat Ratio 15.6 RATIO (10-20); Calcium,Total 9.9 mg/dL (7.6-11.0); Carbon Dioxide 23.2 mmol/L (21.0-32.0); Chloride 101 mmol/L (98-108); Globulin 3.2 g/dL (2.2-4.2); Glucose 108 mg/dL (70-99); Potassium 4.6 mmol/L (3.3-5.1)
== END | disposition home or self-care (01) ==
LOC: LAB 08:59
PROVIDERS: PCP Family Medicine Geriatric Medicine; Referring Provider Internal Medicine; Visit Provider Internal Medicine
DX: K76.0 Fatty (change of) liver, not elsewhere classified (principal); K74.60 Unspecified cirrhosis of liver; R18.8 Other ascites
CPT/HCPCS: 36415; 80053; 85610

== ENCOUNTER → 2025-02-10 | Outpatient (CLI) | payer MEDICARE, OTHER, SELFPAY ==
[2018-07-27 13:33] VITALS: BMI 27.7
--- NOTE | 2025-02-10 13:49 | ECHOLC_ITS ---
Reason For Study Reason For Study: DILATED CARDIOMYOPATHY Procedure This was a limited 2D transthoracic echocardiogram. Contrast injection was performed. Exam performed in department. Left Ventricle Mildly dilated left ventricle. The left ventricular ejection fraction is 25 %. Moderate segmental systolic dysfunction (see wall motion). Infero-Basal: Akinetic. Basal inferoseptal: Akinetic. Right Ventricle Normal RV size. Normal systolic function. Atria Normal left atrium. Normal right atrium. Mitral Valve Normal mitral valve. Tricuspid Valve Normal tricuspid valve. Aortic Valve Trisinus/trileaflet aortic valve. Mild (1+) eccentric aortic valve insufficiency. Pulmonic Valve Normal pulmonic valve. Great Vessels Normal aortic root. The pulmonary artery is normal size. Inferior vena cava collapse with respiration. Pericardium/Pleural No pericardial effusion. Medication 22 gauge I.V. with prn adaptor inserted into right arm. Diluted definity 1.5ml given slow IV push to enhance endocardial definition. MMode/2D Measurements & Calculations LVIDd: 5.8 cm IVSd: 0.91 cm LAV(MOD- bp): 55.1 ml LVIDs: 4.5 cm LVPWd: 0.95 cm RVDd: 3.5 cm FS: 21.5 % LAV(MOD- bp) Indexed: 27.4 ml/m2 LAV(MOD- sp2): 65.3 ml LAV(MOD- sp4): 47.1 ml SV(MOD- sp4): 52.7 ml LVAd ap4: 52.0 cm2 LVAd ap2: 49.0 cm2 LVLd ap4: 9.4 cm LVLd ap2: 9.4 cm SI(MOD- sp4): 26.2 ml/m2 EDV(MOD-sp4): 236.8 ml EDV(MOD-sp2): 211.0 ml EDV(sp4-el): 245.1 ml EDV(sp2-el): 216.4 ml LVAs ap4: 44.2 cm2 LVAs ap2: 43.3 cm2 LVLs ap4: 8.8 cm LVLs ap2: 8.8 cm ESV(MOD-sp4): 184.1 ml ESV(MOD-sp2): 178.2 ml ESV(sp4-el): 188.2 ml ESV(sp2-el): 180.7 ml EF(MOD-sp4): 22.3 % EF(MOD-sp2): 15.6 % EF(sp4-el): 23.2 % SV(MOD-sp2): 32.8 ml SV(sp4-el): 56.9 ml Ao sinus diam: 3.9 cm SI(MOD-sp2): 16.3 ml/m2 Ao ST Junction: 3.0 cm LA dimension(2D): 4.1 cm LA A4 area: 19.0 cm2 RA A4 area: 20.3 cm2 TAPSE: 1.0 cm Doppler Measurements & Calculations AI max marilia: 396.9 cm/sec AI max P.0 mmHg AI dec slope: 186.1 cm/sec2 AI P1/2t: 624.5 msec ECHO/Echo Limited w/Contrast Interpretation Summary Mildly dilated left ventricle. The left ventricular ejection fraction is 25 %. Moderate segmental systolic dysfunction (see wall motion). Contrast injection was performed. Ordering Physician: Norris Grigsby Referring Physician: Cliff Pardo Chi Performed By: Nelida Tamayo RDCS
== END | disposition home or self-care (01) ==
LOC: CVS 13:48
PROVIDERS: PCP Family Medicine Geriatric Medicine; Referring Provider Nurse Practitioner Family; Visit Provider Nurse Practitioner Family
DX: I50.9 Heart failure, unspecified (principal); I42.0 Dilated cardiomyopathy
CPT/HCPCS: 93308; Q9957; A4216; C8924

== ENCOUNTER → 2025-04-05 | Outpatient (CLI) | payer MEDICARE, OTHER, SELFPAY ==
[2018-07-27 13:33] VITALS: BMI 27.7
--- OUTSIDE RECORDS SUMMARY | 2025-04-05 09:18 | XMS RPT_ITS | CCD ---
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 Cliff Rojo Primary Care Provider Stefanie Stark Attending Provider [phone] Stefanie Stark Referring Provider [phone] Edvin GUY, Dr. Cliff Rojo Referring Provider [phone] Gerald Carroll DO Attending Provider Dr. Gerald Carroll DO Other Provider Stefany GUY, Dr. Love Attending Provider Kanwal Kaur Attending Provider Kanwal Kaur Referring Provider Beltran GUY, Dr. Moreau Attending Provider Dr. Prieto Gong MD Referring Provider Dr. Cliff Taylor MD, Chi Attending Provider Dr. Cliff Taylor MD, Chi Primary Care Provider [phone] Dr. Cliff Taylor MD, Chi Referring Provider Stefanie Stark Attending Provider Stefanie Stark Referring Provider Laila Boothe Attending Provider Unavailable Stefany GUY, Dr. Love Attending Provider [phone] Dr. Cliff Taylor MD, Chi Primary Care Provider Edvin GUY, Dr. Cliff Rojo Referring Provider Stefanie Stark Attending Provider Stefanie Stark Referring Provider Roof ART SUPERVISOR-C, Norris Bass Attending Provider Roof ART SUPERVISOR-C, Norris Bass Referring Provider Edvin GUY, Dr. Cliff Rojo Primary Care Provider [phone] Edvin GUY, Dr. Cliff Rojo Referring Provider Beltran GUY, Dr. Moreau Attending Provider Beltran GUY, Dr. Moreau Referring Provider Edvin GUY, Dr. Cliff Rojo Primary Care Provider [phone] Edvin GUY, Dr. Cliff Rojo Primary Care Provider [phone] Edvin GUY, Dr. Cliff Rojo Primary Care Physician [phone] Edvin GUY, Dr. Cliff Rojo Referring Provider Roof ART SUPERVISOR-C, Norris Bass Attending Physician Beltran GUY, Dr. Moreau Attending Physician Beltran GUY, Dr. Moreau Referring Provider Stefany GUY, Dr. Love Attending Physician Edvin GUY, Dr. Cliff Rojo Primary Care Physician Roof ART SUPERVISOR-C, Norris Bass Attending Physician Roof ART SUPERVISOR-C, Norris Bass Referring Provider Edvin GUY, Dr. Cliff Rojo Referring Provider Glen, Gerald Attending Unavailable Edvin, Cliff Chi Referring Unavailable Edvin, Cliff Chi Primary Care Unavailable Roof ART SUPERVISOR, Norris Bass Referring Unavailable Roof ART SUPERVISOR, Norris Bass Attending Unavailable Edvin, Cliff Chi Primary Care Unavailable Roof ART SUPERVISOR, Norris Bass Referring Unavailable Roof ART SUPERVISOR, Norris Bass Attending Unavailable Edvin, Cliff Chi Primary Care Unavailable Stefanie Stark Attending Unavail able Edvin, Cliff Chi Primary Care Unavailable Stefanie Stark Referring Unavail able Roof ART SUPERVISOR, Norris H Attending Unavailable Roof ART SUPERVISOR, Norris H Referring Unavailable Edvin, Cliff Chi Primary Care Unavailable Roof ART SUPERVISOR, Norris H Attending Unavailable Edvin, Cliff Chi Referring Unavailable Edvin, Cliff Chi Primary Care Unavailable Edvin, Cliff Chi Referring Unavailable Edvin, Cliff Chi Primary Care Unavailable [facility], Prieto Attending Unavailable Edvin, Cliff Chi Referring Unavailable DunawayStefanie Garcia Attending Unavail able Edvin, Cliff Chi Primary Care Unavailable [facility], Prieto Attending Unavailable Edvin, Cliff Chi Referring Unavailable Edvin, Cliff Chi Primary Care Unavailable Roof ART SUPERVISOR, Norris H Referring Unavailable Roof ART SUPERVISOR, Norris H Attending Unavailable Edvin, Cliff Chi Primary Care Unavailable Edvin, Cliff Chi Primary Care Unavailable [facility], Prieto Referring Unavailable [facility], Prieto Attending Unavailable Dunaway PA, Stefanie M Attending Unavail able Gume PA, Stefanie M Referring Unavail able Edvin, Cliff Chi Primary Care Unavailable Kanwal Vines Attending Unavailable Kanwal Vines Referring Unavailable Edvin, Cliff Chi Primary Care Unavailable [place]unaway PA, Stefanie M Referring Unavail able Gume OLIVA, Stefanie Altamirano Attending Unavail able Edvin, Cliff Chi Primary Care Unavailable [facility], [facility] Attending Unavailable [facility], Prieto Referring Unavailable Edvin, Cliff Chi Primary Care Unavailable [facility], [facility] Attending Unavailable [facility], Prieto Referring Unavailable Edvin, Cliff Chi Primary Care Unavailable Edvin, Cliff Chi Primary Care Unavailable Friend, Gerald Consulting Unavailable Friend, Gerald Attending Unavailable Edvin, Cliff Chi Referring Unavailable Roof ART SUPERVISOR, Norris H Attending Unavailable Edvin, Cliff Chi Primary Care Unavailable Edvin, Cliff Chi Referring Unavailable Kanwal Vines Attending Unavailable Kanwal Vines Referring Unavailable Edvin, Cliff Chi Primary Care Unavailable [facility], Prieto Attending Unavailable [facility], Prieto Referring Unavailable Edvin, Cliff Chi Primary Care Unavailable Edvin, Cliff Chi Primary Care Unavailable Dunaway PA, Stefanie M Referring Unavail able Dunaway PA, Stefanie M Attending Unavail able Gume PAStefanie M Attending Unavail able Edvin, Cliff Chi Referring Unavailable Edvin, Cliff Chi Primary Care Unavailable Kanwal Vines Attending Unavailable Edvin, Cliff Chi Referring Unavailable [facility], Prieto Attending Unavailable Edvin, Cliff Chi Referring Unavailable Edvin, Cliff Chi Primary Care Unavailable NoLaila henry Attending Unavailable Edvin, Cliff Chi Primary Care Unavailable Ivan Mccall Attending Unavailable Edvin, Cliff Chi Primary Care Unavailable Stefany Ivan Attending Unavailable Edvin, Cliff Chi Primary Care Unavailable Edvin, Cliff Chi Attending Unavailable Edvin, Cliff Chi Primary Care Unavailable Ivan Mccall Attending Unavailable Edvin, Cliff Chi Primary Care Unavailable Calista ART SUPERVISORNorris Referring Unavailable Norris Grigsby NP Attending Unavailable Edvin, Cliff Chi Primary Care Unavailable Allergies Allergy Classification Reported Allergen(s) Allergy Type Date of Onset Reaction(s) Facility (18 sources) atorvastatin; Translations: [atorvastatin calcium] Drug Allergy 2 Pain in joints [facility] (12 sources) carvedilol Drug Allergy 2 diarrhea [facility] (17 sources) Gemfibrozil Drug Allergy 2 myalgia [facility] (18 sources) Pravastatin; Translations: [pravastatin sodium] Drug Allergy 2 Unknown [facility] (5 sources) sacubitril Drug Allergy 5 Itching [facility] (5 sources) valsartan Drug Allergy 5 Itching [facility] (1 source) carvedilol Drug Allergy 5 [facility] (1 source) Gemfibrozil Drug Allergy 5 [facility] (1 source) sacubitril Drug Allergy 5 [facility] (1 source) valsartan Drug Allergy 5 [facility] Medications Current Medications Medication Drug Class(es) Dates Sig (Normalized) Sig (Original) aspirin 81 mg delayed release oral tablet (20 sources) Platelet Aggregation Inhibitor, Nonsteroidal Anti-inflammatory Drug Start: 05-24-2017 take 1 tablet by mouth once daily Start: 10-26-2015 End: 05-24-2017 take 1 tablet by mouth twice daily Aspirin 81 MG tablet,delayed release (DR/EC) Discontinued 81 mg PO TWICE A DAY October 26, 2015 12:00am May 24, 2017 11:34am carvedilol 12.5 mg oral tablet (20 sources) alpha-Adrenergic Dangelo, beta-Adrenergic Dangelo Start: 04-04-2024 End: 05-28-2024 take 6.25 mg by mouth twice daily at mealtime Start: 03-08-2024 End: 04-04-2024 take 1 tablet by mouth twice daily at mealtime Carvedilol 12.5 mg tablet Discontinued 12.5 mg PO TWICE A DAY 60 March 08, 2024 12:00am April 04, 2024 9:37am must administer with a meal/food Start: 02-23-2024 End: 02-25-2024 Carvedilol 6.25 mg Tablet Discontinued 6.25 mg PO 60 30 February 23, 2024 12:00am February 25, 2024 12:07pm Start: 12-07-2017 End: 12-18-2017 take 2 tablets by mouth twice daily Carvedilol 3.125 mg tablet Discontinued 6.25 mg PO TWICE A DAY December 07, 2017 12:00am December 18, 2017 4:35pm Start: 12-07-2017 End: 12-18-2017 take 6.25 mg by mouth twice daily Carvedilol Discontinued 6.25 MG PO TWICE A DAY December 07, 2017 12:00am December 18, 2017 4:35pm Start: 05-24-2017 End: 12-07-2017 take 1 tablet by mouth twice daily Carvedilol (Coreg) 3.125 mg tablet Discontinued 3.125 mg PO TWICE A DAY 180 May 24, 2017 6:03pm December 07, 2017 6:50pm Start: 08-04-2015 End: 10-26-2015 take 1 tablet by mouth twice daily Carvedilol 3.125 MG tablet Discontinued 3.125 mg PO TWICE A DAY August 04, 2015 12:00am October 26, 2015 11:23am dapagliflozin 10 mg oral tablet (19 sources) Sodium-Glucose Cotransporter 2 Inhibitor Start: 03-08-2024 End: 10-30-2024 take 1 tablet by mouth once daily in the morning furosemide 40 mg oral tablet (20 sources) Loop Diuretic Start: 04-04-2024 take 1 tablet by mouth once daily Start: 02-20-2024 End: 04-04-2024 take 1 tablet by mouth twice daily Furosemide 40 mg Tablet Discontinued 40 mg PO TWICE DAILY 60 30 February 23, 2024 12:00am April 04, 2024 11:03am Start: 08-09-2021 End: 02-20-2024 take 1 tablet by mouth once daily Furosemide 40 mg tablet Discontinued 40 mg PO DAILY 90 February 19, 2024 2:01pm February 20, 2024 12:51pm edema Start: 05-17-2021 End: 08-09-2021 Furosemide (Lasix) 80 mg tab let Discontinued 40 mg PO DAILY as needed for weight gain 90 July 08, 2021 9:26am August 09, 2021 4:43pm Start: 02-01-2021 End: 05-17-2021 take 1 tablet by mouth once daily Furosemide (Lasix) 80 mg tablet Discontinued 80 mg PO DAILY 14 February 01, 2021 5:06pm May 17, 2021 11:04am Start: 11-10-2017 End: 11-23-2017 take 1 tablet by mouth once daily Furosemide 40 MG tablet Discontinued 40 mg PO DAILY 90 0 November 10, 2017 12:00am November 23, 2017 10:53am losartan potassium 50 mg oral tablet (20 sources) Angiotensin 2 Receptor Dangelo Start: 12-13-2024 End: 12-15-2024 take 1 tablet by mouth once daily Start: 02-26-2024 End: 03-07-2024 take 1 tablet by mouth twice daily Losartan 50 mg tablet Discontinued 50 mg PO TWICE A DAY February 26, 2024 12:00am March 07, 2024 2:05pm Start: 01-26-2023 End: 02-19-2024 Losartan 100 mg tablet Disco ntinued 100 mg PO DAILY 90 January 26, 2023 12:00am February 19, 2024 2:17pm Change from 50 bid to 100 once a day Start: 01-26-2023 End: 02-19-2024 take 1 tablet by mouth once daily Losartan 100 mg tablet Discontinued 100 mg PO DAILY January 26, 2023 12:00am February 19, 2024 2:17pm Start: 08-24-2020 End: 01-26-2023 take 1 tablet by mouth twice daily Losartan 50 mg tablet Discontinued 50 mg PO TWICE A DAY 180 August 10, 2022 9:58am January 26, 2023 11:36am Start: 06-10-2019 End: 08-24-2020 take 2 tablets by mouth twice daily Losartan 25 mg tablet Discontinued 50 mg PO TWICE A DAY 360 June 10, 2019 4:14pm August 24, 2020 4:31pm Start: 06-10-2019 End: 08-24-2020 take 50 mg by mouth twice daily Losartan Discontinued 50 MG PO TWICE A DAY 360 June 10, 2019 4:14pm August 24, 2020 4:31pm Start: 11-10-2017 End: 06-10-2019 take 1 tablet by mouth twice daily Losartan 50 mg tablet Discontinued 50 mg PO TWICE A DAY 180 3 June 07, 2018 5:17pm June 10, 2019 4:14pm Start: 10-26-2015 End: 05-24-2017 take 1 tablet by mouth once daily Losartan 25 MG tablet Discontinued 25 mg PO DAILY October 26, 2015 12:00am May 24, 2017 11:30am spironolactone 50 mg oral ta blet (20 sources) Aldosterone Antagonist Start: 02-04-2025 Start: 10-08-2024 End: 02-04-2025 take 1 tablet by mouth once daily Spironolactone 50 mg tablet Discontinued 50 mg PO DAILY 30 30 4 October 08, 2024 12:00am February 04, 2025 8:54am Hold if serum potassium is more than 5.0. Start: 06-26-2024 End: 10-08-2024 Spironolactone 25 mg tablet Discontinued 37.5 mg PO daily 135 90 3 June 27, 2024 4:13pm October 08, 2024 1:03pm Hold for serum potassium more than 5.0 Start: 03-08-2024 End: 06-26-2024 take 1 tablet by mouth once daily Spironolactone 25 mg tablet Discontinued 25 mg PO daily 90 3 March 08, 2024 12:00am June 26, 2024 9:25pm Start: 11-10-2017 End: 04-27-2018 take 1 tablet by mouth once daily Spironolactone 25 mg tablet Discontinued 25 mg PO DAILY 90 3 December 06, 2017 5:35pm April 27, 2018 4:29pm traMADol hydrochloride 50 mg oral tablet (8 sources) Opioid Agonist Start: 10-15-2024 take 1 tablet by mouth once daily as needed Completed/Discontinued Medications Medication Drug Class(es) Dates Sig (Normalized) Sig (Original) amLODIPine 2.5 mg oral tablet (20 sources) Dihydropyridine Calcium Channel Dangelo Start: 02-01-2021 End: 05-17-2021 take 2 tablets by mouth once daily Amlodipine 2.5 mg tablet Discontinued 5 mg PO DAILY 60 February 11, 2021 3:02pm May 17, 2021 11:03am Start: 02-01-2021 End: 05-17-2021 take 5 mg by mouth once daily Amlodipine Discontinued 5 MG PO DAILY 60 February 11, 2021 3:02pm May 17, 2021 11:03am Start: 01-19-2021 End: 02-01-2021 take 1 tablet by mouth once daily Amlodipine 2.5 mg tablet Discontinued 2.5 mg PO DAILY 30 January 19, 2021 4:49pm February 01, 2021 4:27pm apixaban 5 mg oral tablet (20 sources) Factor Xa Inhibitor Start: 02-23-2024 End: 09-05-2024 Apixaban (Eliquis) 5 mg tablet Discontinued 5 mg PO .COMPLEX 180 September 05, 2024 11:11am September 05, 2024 11:13am 5 mg orally TWICE DAILY. Fax to [facility]: ; clopidogrel 75 mg oral tablet (20 sources) P2Y12 Platelet Inhibitor Start: 05-11-2018 End: 02-19-2024 take 1 tablet by mouth once daily Clopidogrel 75 mg tablet Discontinued 75 mg PO DAILY 90 May 12, 2022 2:35pm February 19, 2024 2:17pm empagliflozin 10 mg oral tablet (13 sources) Sodium-Glucose Cotransporter 2 Inhibitor Start: 02-23-2024 End: 02-25-2024 take 1 tablet by mouth once daily Empagliflozin (Jardiance) 10 mg Tablet Discontinued 10 mg PO DAILY 30 30 February 23, 2024 12:00am February 25, 2024 12:07pm Fluticasone Furoate-Vilanterol (17 sources) Corticosteroid, beta2-Adrenergic Agonist Start: 01-19-2021 End: 05-17-2021 Fluticasone Furoate-Vilanterol (Breo Ellipta) 200-25 mcg/dose blister with device Discontinued 1 NMA INHALATION DAILY January 19, 2021 12:00am May 17, 2021 11:03am Start: 01-19-2021 End: 05-17-2021 Fluticasone Furoate-Vilanter ol (Breo Ellipta) 200-25 mcg/dose blister with device Discontinued 1 INH INHALATION DAILY January 19, 2021 12:00am May 17, 2021 11:03am Start: 01-19-2021 End: 05-17-2021 Fluticasone Furoate-Vilanter ol (Breo Ellipta) 200-25 mcg/dose blister with device Discontinued 1 INH INHALATION DAILY January 18, 2021 11:00pm May 17, 2021 10:03am gemfibrozil 600 mg oral tablet (17 sources) Peroxisome Proliferator Receptor alpha Agonist Start: 10-26-2015 End: 05-24-2017 take 1 tablet by mouth twice daily before mealtime Gemfibrozil 600 MG tablet Discontinued 600 mg PO TWICE DAILY BEFORE MEALS October 26, 2015 12:00am May 24, 2017 11:30am hydroCHLOROthiazide 12.5 mg oral tablet (17 sources) Thiazide Diuretic Start: 09-04-2018 End: 02-20-2019 take 1 tablet by mouth once daily for cough Hydrochlorothiazide 12.5 mg tablet Discontinued 12.5 mg PO DAILY 30 September 04, 2018 12:00am February 20, 2019 1:37pm On Hold: 12/13/18 for cough 24 hr isosorbide mononitrate 30 mg extended release oral tablet (17 sources) Nitrate Vasodilator Start: 12-18-2017 End: 12-25-2017 take 1 tablet by mouth once daily in the morning, then take 1 tablet by mouth every twenty-four hours Isosorbide Mononitrate 30 mg tablet extended release 24 hr Discontinued 30 mg PO EVERY MORNING 30 December 18, 2017 12:00am December 25, 2017 5:46pm lactulose 667 mg/ml oral solution (20 sources) Osmotic Laxative Start: 03-26-2024 End: 11-05-2024 take 20 g by mouth twice daily Lactulose 10 gram/15 mL (15 mL) solution Discontinued 20 g PO TWICE A DAY 1800 30 June 11, 2024 10:04am November 05, 2024 8:14am Start: 03-26-2024 End: 04-02-2024 take 20 g by mouth twice daily Lactulose 10 gram/15 mL (15 mL) solution Discontinued 20 g PO TWICE A DAY 600 2 March 26, 2024 1:00am April 02, 2024 11:22am Start: 03-26-2024 End: 04-02-2024 take 20 g by mouth twice daily Lactulose 10 gram/15 mL (15 mL) solution Discontinued 20 g PO TWICE A DAY 600 March 26, 2024 1:00am April 02, 2024 11:22am lisinopril 20 mg oral tablet (20 sources) Angiotensin Converting Enzyme Inhibitor Start: 05-24-2017 End: 11-10-2017 take 1 tablet by mouth twice daily Lisinopril 20 mg tablet Discontinued 20 mg PO TWICE A DAY 180 3 May 24, 2017 6:03pm November 10, 2017 8:26am Start: 08-04-2015 End: 10-26-2015 take 1 tablet by mouth once daily Lisinopril 20 MG tablet Discontinued 20 mg PO DAILY August 04, 2015 12:00am October 26, 2015 11:23am metoprolol tartrate 25 mg oral tablet (20 sources) beta-Adrenergic Dangelo Start: 02-25-2024 End: 03-08-2024 take 1 tablet by mouth twice daily Metoprolol Tartrate 25 mg Tablet Discontinued 25 mg PO TWICE A DAY 60 30 0 February 25, 2024 12:00am March 08, 2024 8:47am Start: 09-12-2018 End: 02-19-2024 take 1 tablet by mouth twice daily Metoprolol Tartrate 25 mg tablet Discontinued 25 mg PO TWICE A DAY 180 November 28, 2022 12:56pm February 19, 2024 2:17pm Start: 07-26-2018 End: 09-12-2018 take 1 tablet by mouth once daily Metoprolol Succinate 25 mg tablet extended release 24 hr Discontinued 25 mg PO DAILY July 26, 2018 12:00am September 12, 2018 10:29am Start: 06-11-2018 End: 07-26-2018 take 1 tablet by mouth twice daily Metoprolol Tartrate 25 mg tablet Discontinued 25 mg PO TWICE A DAY 60 June 11, 2018 1:00am July 26, 2018 2:09pm Start: 12-18-2017 End: 06-11-2018 take 1 tablet by mouth once daily Metoprolol Succinate 25 mg tablet extended release 24 hr Discontinued 25 mg PO daily 90 June 07, 2018 5:17pm June 11, 2018 5:28pm Start: 10-26-2015 End: 05-24-2017 take 1 tablet by mouth once daily Metoprolol Succinate 25 MG tablet Discontinued 25 mg PO DAILY October 26, 2015 12:00am May 24, 2017 11:31am RABEprazole sodium 20 mg delayed release oral tablet (13 sources) Proton Pump Inhibitor Start: 05-23-2024 End: 05-28-2024 take 1 tablet by mouth once daily Rabeprazole 20 mg tablet,delayed release (DR/EC) Discontinued 20 mg PO daily 60 3 May 23, 2024 1:00am May 28, 2024 4:35pm rifAXIMin 550 mg oral tablet (20 sources) Rifamycin Antibacterial Start: 04-26-2024 End: 05-13-2024 take 1 tablet by mouth twice daily Rifaximin (Xifaxan) 550 mg tablet Discontinued 550 mg PO TWICE A DAY 180 April 26, 2024 4:38pm May 13, 2024 12:38pm sacubitril 24 mg / valsartan 26 mg oral tablet (8 sources) Angiotensin 2 Receptor Dangelo Start: 10-15-2024 End: 12-13-2024 Sacubitril-Valsartan (Entresto) 24-26 mg tablet Discontinued 1 {tbl} PO TWICE A DAY 60 October 15, 2024 12:00am December 13, 2024 4:55pm On Hold: ITCHING ALL OVER ticagrelor 90 mg oral tablet (20 sources) Start: 11-10-2017 End: 06-07-2018 take 1 tablet by mouth twice daily Ticagrelor 90 mg tablet Discontinued 90 mg PO TWICE A DAY 180 3 May 11, 2018 5:59pm June 07, 2018 4:45pm Patient to discontinue and start plavix when script is finished. ursodiol 500 mg oral tablet (20 sources) Bile Acid Start: 06-26-2024 End: 10-15-2024 take 1 tablet by mouth twice daily Ursodiol 500 mg tablet Discontinued 500 mg PO TWICE A DAY 60 30 June 27, 2024 4:13pm October 15, 2024 8:22am Problems Active Problems Problem Classification Problem Date Documented Da te Episodic/Chronic Acute and unspecified renal failure (13 sources) Acute renal failure syndrome; Translations: [Acute kidney failure, unspecified] 02-20-2024 Episodic Acute myocardial infarction (17 sources) Myocardial infarction; Translations: [Non-ST elevation (NSTEMI) myocardial infarction] 11-13-2017 Chronic Cardiac dysrhythmias (20 sources) Multiple premature ventricular complexes; Translations: [Ventricular premature depolarization] Onset: 5 11-08-2017 Chronic Complication of device; implant or graft (17 sources) Arteriosclerosis of coronary artery bypass graft; Translations: [Atherosclerosis of coronary artery bypass graft(s) without angina pectoris] 11-30-2017 Chronic Comment on above: Occluded SVG-PDA Conduction disorders (17 sources) Right bundle branch block; Translations: [Unspecified right bundle-branch block] 11-08-2017 Chronic Congestive heart failure; nonhypertensive (14 sources) Congestive heart failure; Translations: [Heart failure, unspecified] Onset: 5 02-20-2024 Chronic Coronary atherosclerosis and other heart disease (20 sources) Coronary atherosclerosis; Translations: [Atherosclerotic heart disease of [place] coronary artery without angina pectoris] Onset: 5 08-23-2018 Chronic Comment on above: Severe coronary dise ase with a patent REYES to the LAD saphenous vein graftobtuse marginal branch occluded saphenous vein graft to the right coronaryartery and [place] right coronary artery with dilated cardiomyopathy 02/2024;PCI-ERROL-RCA w/ 3.0 x 20 and 3.0 x 38 mm Promus 11/08/17CABG x 3 [id number]-Mid LAD and end-to-side to the apical segment, Free ABIMAEL-OM, SVG-PDA of the RCA 08/12/2015 Disorders of lipid metabolism (20 sources) Pure hypercholesterolemia; Translations: [Pure hypercholesterolemia, unspecified] Onset: 5 05-04-2021 Chronic Essential hypertension (20 sources) Essential hypertension; Translations: [Essential (primary) hypertension] Onset: 5 03-05-2021 Chronic Heart valve disorders (17 sources) Aortic incompetence, non-rheumatic ; Translations: [Nonrheumatic aortic (valve) insufficiency] 11-08-2017 Chronic Malaise and fatigue (13 sources) Asthenia; Translations: [Weakness] 02-24-2024 Episodic Other aftercare (4 sources) Patient encounter status; Translations: [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/antipl atelets] 02-20-2019 Episodic Other aftercare (13 sources) Long-term current use of drug therapy; Translations: [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/antipl atelets] 02-20-2019 Episodic Other aftercare (1 source) FPC (current) use of 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/antipl atelets; Translations: [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/antipl atelets] Onset: 5 Episodic Other connective tissue disease (17 sources) Muscle pain; Translations: [Myalgia, unspecified site] 06-10-2024 Episodic Other gastrointestinal disorders (15 sources) Ascites; Translations: [Other ascites] 02-20-2024 Episodic Other liver diseases (20 sources) Fatty (change of) liver, not elsewhere classified; Translations: [Nonalcoholic fatty liver disease] Onset: 5 11-08-2017 Chronic Other liver diseases (20 sources) Cirrhosis of liver; Translations: [Unspecified cirrhosis of liver] 06-25-2024 Chronic Other liver diseases (2 sources) Unspecified cirrhosis of liver; Translations: [Unspecified cirrhosis of liver] Onset: 5 Chronic Other lower respiratory disease (13 sources) Dyspnea on exertion; Translations: [Other forms of dyspnea] 02-20-2024 Episodic Other lower respiratory disease (20 sources) Dyspnea; Translations: [Shortness of breath] 02-19-2024 Episodic [place]-; endo-; and myocarditis; cardiomyopathy (except that caused by tuberculosis or sexually transmitted disease) (20 sources) Dilated cardiomyopathy; Translations: [Dilated cardiomyopathy] Onset: 5 02-20-2024 Chronic Residual codes; unclassified (13 sources) Peripheral edema; Translations: [Localized edema] 02-20-2024 Episodic Past or Other Problems Problem Classification Problem Date Documented Da te Episodic/Chronic Coronary atherosclerosis and other heart disease (17 sources) Stented coronary artery; Translations: [Presence of coronary angioplasty implant and graft] Onset: 07-27-2018 02-20-2019 Episodic Comment on above: PCI-ERROL-RCA w/ 3.0 x 20 and 3.0 x 38 mm Promus 11/08/17 per [facility]N @ [facility]; PTCA/ERROL to mid RAMUS with a 2.25 x 12 Promus Synergy, followed immediately upstream with a 2.25 x 24 Promus Synergy, 07/27/18 per [facility]N @[facility]. Gastritis and duodenitis (1 source) Duodenitis without bleeding; Translations: [Duodenitis without bleeding] Onset: 06-19-2024 Episodic Other connective tissue disease (1 source) Myalgia, unspecified site; Translations: [Myalgia, unspecified site] Onset: 06-28-2024 Episodic Other gastrointestinal disorders (1 source) Other ascites; Translations: [Other ascites] Onset: 06-10-2024 Episodic Other lower respiratory disease (2 sources) Shortness of breath; Translations: [Shortness of breath] Onset: 06-10-2024 Episodic Unclassified (20 sources) Encounter for screening for malignant neoplasm of colon; Translations: [Echocardiogram abnormal] Onset: 06-29-2017 10-20-2020 Episodic Results Test Name Value Interpretation Reference Range Facility L3410.9994on 02-17-2025 [facility] Misc. 2 COMMENT Normal . [facility] Comment on above: Order Comment: [id number] 2PPBC profile serum rf Result Comment: Test Ordered: [id number] Primary Biliary Cholangitis Pr Anti-Nuclear Ab by IFA (RDL) Positive [A ] ESECF Reference Range: Negative Homogeneous Pattern ART SUPERVISOR NOLAB Reference Range: . Nucleolar Pattern ART SUPERVISOR NOLAB Reference Range: . Speckled Pattern 1:160 [H ] ESECF Reference Range: <1:40 Centromere Pattern ART SUPERVISOR NOLAB Reference Range: . Spindle Apparatus Pattern ART SUPERVISOR NOLAB Reference Range: . Nuclear Membrane Pattern ART SUPERVISOR NOLAB Reference Range: . Midbody Pattern 1:160 [H ] ESECF Reference Range: <1:40 Nuclear Dot Pattern ART SUPERVISOR NOLAB Reference Range: . PCNA Pattern ART SUPERVISOR NOLAB Reference Range: . Centriole Pattern ART SUPERVISOR NOLAB Reference Range: . Note: Comment ESECF Reference Range: . KESHIA performed by Indirect Fluorescent Antibody (IFA) Anti-Mitochondrial Ab by IFA <1:20 ESECF Reference Range: <1:20 Anti-Mitochondrial M2 Ab (RDL) <20 Units ESECF Reference Range: <20 Negative: <20 Equivocal: 20 - 25 Positive: >25 Anti-GP-210 Ab (RDL) <20 Units ESECF Reference Range: <20 Anti-SP-100 Ab (RDL) <20 Units ESECF Reference Range: <20 Anti-Smooth Muscle Ab by IFA 1:20 [H ] ESECF Reference Range: <1:20 Performed at: [facility] [employer] [address] [place], [place] [id number] Customer Service Sales Associate: Nicky Lagunas MD, Phone: [phone] Performed at: - [facility] [place] [address] [place], [place] [id number] Customer Service Sales Associate: Carlos Betancourt PhD, Phone: [phone] Performed By: #### L 300.3900, L500.4050, L3410.9992, L3410.9996, L3410.9994 ####[facility] [address] [place], [address] L3410.9996on 02-16-2025 [facility] Mis. 3 COMMENT Normal . [facility] Comment on above: Order Comment: [id number] 7Autoimmune hep serum rf Result Comment: Test Ordered: [id number] Autoimmune Liver Profile (RDL) Anti-Nuclear Ab by IFA (RDL) Positive [A ] ESECF Reference Range: Negative Homogeneous Pattern ART SUPERVISOR NOLAB Reference Range: . Nucleolar Pattern ART SUPERVISOR NOLAB Reference Range: . Speckled Pattern 1:160 [H ] ESECF Reference Range: <1:40 Centromere Pattern ART SUPERVISOR NOLAB Reference Range: . Spindle Apparatus Pattern ART SUPERVISOR NOLAB Reference Range: . Nuclear Membrane Pattern ART SUPERVISOR NOLAB Reference Range: . Midbody Pattern 1:160 [H ] ESECF Reference Range: <1:40 Nuclear Dot Pattern ART SUPERVISOR NOLAB Reference Range: . PCNA Pattern ART SUPERVISOR NOLAB Reference Range: . Centriole Pattern ART SUPERVISOR NOLAB Reference Range: . Note: Comment ESECF Reference Range: . KESHIA performed by Indirect Fluorescent Antibody (IFA) ANCA by IFA (RDL) Negative ESECF Reference Range: Negative Anti-Chromatin Ab, IgG (RDL) <20 Units ESECF Reference Range: <20 Anti-Liver/Kidney Ab (RDL) <20 Units ESECF Reference Range: <20 Negative: <20 Equivocal: 20 - 25 Positive: >25 Anti-Mitochondrial M2 Ab (RDL) <20 Units ESECF Reference Range: <20 Negative: <20 Equivocal: 20 - 25 Positive: >25 Anti-Soluble Liver Ag Ab (RDL) <9.0 Units ESECF Reference Range: 0.0 - 20.0 Negative: 0.0 - 20.0 Equivocal: 20.1 - 24.9 Positive: >24.9 Anti-Smooth Muscle Ab by IFA 1:20 [H ] ESECF Reference Range: <1:20 Anti-Mitochondrial Ab by IFA <1:20 ESECF Reference Range: <1:20 Interpretation for Anti-Chromatin: Negative: <20 Moderate Positive: 20 - 60 Strong Positive: >60 Performed at: [facility] [address] [place] [id number] Customer Service Sales Associate: Nicky Lagunas MD, Phone: [phone] Performed at: [facility] [address] [id number] Customer Service Sales Associate: Carlos Betancourt PhD, Phone: [phone] Performed By: #### L 300.0963, L598.3645, L3410.6286, L3410.9996, L3410.9994 ####[facility] [address] [place], [address] Echo Limited w/Contraston Echo Limited w/Contrast [facility] [address] [place] [address] Echo Limited w/Contrast 02/10/25 1353 MR#: [id number] Acct: [id number] Name: SEVERIANO HERNANDEZ Rep #: [id number] : 1955 70 From: Ivan Mccall MD Attending Dr: Norris Grigsby NP-C Status: REG CLI Ordering Dr: Norris Grigsby ART SUPERVISOR ART SUPERVISOR-C Date: 02/10/25 Location: [facility] Sex: M C Admitted: Reason For Study Reason For Study: DILATED CARDIOMYOPATHY Procedure This was a limited 2D transthoracic echocardiogram. Contrast injection was performed. Exam performed in department. Left Ventricle Mildly dilated left ventricle. The left ventricular ejection fraction is 25 %. Moderate segmental systolic dysfunction (see wall motion). Infero-Basal: Akinetic. Basal inferoseptal: Akinetic. Right Ventricle Normal RV size. Normal systolic function. Atria Normal left atrium. Normal right atrium. Mitral Valve Normal mitral valve. Tricuspid Valve Normal tricuspid valve. Aortic Valve Trisinus/trileaflet aortic valve. Mild (1+) eccentric aortic valve insufficiency. Pulmonic Valve Normal pulmonic valve. Great Vessels Normal aortic root. The pulmonary artery is normal size. Inferior vena cava collapse with respiration. Pericardium/Pleural No pericardial effusion. Medication 22 gauge I.V. with prn adaptor inserted into right arm. Diluted definity 1.5ml given slow IV push to enhance endocardial definition. MMode/2D Measurements Calculations LVIDd: 5.8 cm IVSd: 0.91 cm LAV(MOD-bp): 55.1 ml LVIDs: 4.5 cm LVPWd: 0.95 cm RVDd: 3.5 cm FS: 21.5 % LAV(MOD-bp) Indexed: 27.4 ml/m2 LAV(MOD-sp2): 65.3 ml LAV(MOD-sp4): 47.1 ml SV(MOD-sp4): 52.7 ml LVAd ap4: 52.0 cm2 LVAd ap2: 49.0 cm2 LVLd ap4: 9.4 cm LVLd ap2: 9.4 cm SI(MOD-sp4): 26.2 ml/m2 EDV(MOD-sp4): 236.8 ml EDV(MOD-sp2): 211.0 ml EDV(sp4-el): 245.1 ml EDV(sp2-el): 216.4 ml LVAs ap4: 44.2 cm2 LVAs ap2: 43.3 cm2 LVLs ap4: 8.8 cm LVLs ap2: 8.8 cm ESV(MOD-sp4): 184.1 ml ESV(MOD-sp2): 178.2 ml ESV(sp4-el): 188.2 ml ESV(sp2-el): 180.7 ml EF(MOD-sp4): 22.3 % EF(MOD-sp2): 15.6 % EF(sp4-el): 23.2 % SV(MOD-sp2): 32.8 ml SV(sp4-el): 56.9 ml Ao sinus diam: 3.9 cm SI(MOD-sp2): 16.3 ml/m2 Ao ST Junction: 3.0 cm LA dimension(2D): 4.1 cm LA A4 area: 19.0 cm2 RA A4 area: 20.3 cm2 TAPSE: 1.0 cm Doppler Measurements Calculations AI max marilia: 396.9 cm/sec AI max P.0 mmHg AI dec slope: 186.1 cm/sec2 AI P1/2t: 624.5 msec ECHO/Echo Limited w/Contrast Interpretation Summary Mildly dilated left ventricle. The left ventricular ejection fraction is 25 %. Moderate segmental systolic dysfunction (see wall motion). Contrast injection was performed. Ordering Physician: Norris Grigsby Referring Physician: Cliff Taylor Chi Performed By: Nelida Tamayo, RDCS 02/10/25 1502 Date Ivan Mccall MD CC: ART SUPERVISORGuilleC Norris Grigsby; Dr. Cliff Taylor MD Date Dictated: 02/10/25 1353 Date Transcribed: 02/10/25 1502 Millinery Designer: Signed Normal [facility] Limited echocardiogram repor tOrdered By: Ivan Mccall on 02-10-2025 Study report [facility] Cardi[facility] [address] [place] [address] Echo Limited w/Contrast 02/10/25 1353 MR#: [id number] Acct: [id number] Name: SEVERIANO HERNANDEZ Rep #:[id number] : 1955 70 From: Ivan Suarez Attending Dr: PHILIP Mercedes Sta tus: REG CLI Ordering Dr: Norris Grigsby NP Date: 02/10/25 Location: [facility] Sex: M C Admitted: Reason For Study Reason For Study: DILATED CARDIOMYOPATHY Procedure This was a limited 2D transthoracic echocardiogram. Contrast injection was performed. Exam performed in department. Left Ventricle Mildly dilated left ventricle. The left ventricular ejection fraction is 25 %. Moderate segmental systolic dysfunction (see wall motion). Infero-Basal: Akinetic. Basal inferoseptal: Akinetic. Right Ventricle Normal RV size. Normal systolic function. Atria Normal left atrium. Normal right atrium. Mitral Valve Normal mitral valve. Tricuspid Valve Normal tricuspid valve. Aortic Valve Trisinus/trileaflet aortic valve. Mild (1+) eccentric aortic valve insufficiency. Pulmonic Valve Normal pulmonic valve. Great Vessels Normal aortic root. The pulmonary artery is normal size. Inferior vena cava collapse with respiration. Pericardium/Pleural No pericardial effusion. Medication 22 gauge I.V. with prn adaptor inserted into right arm. Diluted definity 1.5ml given slow IV push to enhance endocardial definition. MMode/2D Measurements & Calculations LVIDd: 5.8 cm IVSd: 0.91 cm LAV(MOD-bp): 55.1 ml LVIDs: 4.5 cm LVPWd: 0.95 cm RVDd: 3.5 cm FS: 21.5 % LAV(MOD-bp) Indexed: 27.4 ml/m2 LAV(MOD-sp2): 65.3 ml LAV(MOD-sp4): 47.1 ml SV(MOD-sp4): 52.7 ml LVAd ap4: 52.0 cm2 LVAd ap2: 49.0 cm2 LVLd ap4: 9.4 cm LVLd ap2: 9.4 cm SI(MOD-sp4): 26.2 ml/m2 EDV(MOD-sp4): 236.8 ml EDV(MOD-sp2): 211.0 ml EDV(sp4-el): 245.1 ml EDV(sp2-el): 216.4 ml LVAs ap4: 44.2 cm2 LVAs ap2: 43.3 cm2 LVLs ap4: 8.8 cm LVLs ap2: 8.8 cm ESV(MOD-sp4): 184.1 ml ESV(MOD-sp2): 178.2 ml ESV(sp4-el): 188.2 ml ESV(sp2-el): 180.7 ml EF(MOD-sp4): 22.3 % EF(MOD-sp2): 15.6 % EF(sp4-el): 23.2 % ___ SV(MOD-sp2): 32.8 ml SV(sp4-el): 56.9 ml Ao sinus diam: 3.9 cm SI(MOD-sp2): 16.3 ml/m2 Ao ST Junction: 3.0 cm LA dimension(2D): 4.1 cm LA A4 area: 19.0 cm2 RA A4 area: 20.3 cm2 TAPSE: 1.0 cm Doppler Measurements & Calculations AI max marilia: 396.9 cm/sec AI max P.0 mmHg AI dec slope: 186.1 cm/sec2 AI P1/2t: 624.5 msec ECHO/Echo Limited w/Contrast Interpretation Summary Mildly dilated left ventricle. The left ventricular ejection fraction is 25 %. Moderate segmental systolic dysfunction (see wall motion). Contrast injection was performed. Ordering Physician: Norris Grigsby Referring Physician: Cliff Taylor Chi Performed By: Nelida Tamayo RDCS 02/10/25 1502 Date _ Ivan Mccall MD CC: ART SUPERVISOR-Jenni Grigsby; Dr. Cliff Taylor MD ~ Date Dictated: 02/10/25 1353 Date Transcribed: 02/10/25 1502 Millinery Designer: Signed [facility] Work Phone: [phone] 02-08-2025 [facility] COM[place] Normal . [facility] Comment on above: Order Comment: [id number] 9elf serum rf Result Comment: Test Ordered: [id number] Enhanced Liver Fibrosis (ELF) ELF(TM) Score 10.59 [H ] BN Reference Range: <9.80 ELF(TM) Score Interpretation: Risk cut-offs to assess the likelihood of progression to cirrhosis and liver-related clinical events within 3.9 years following baseline ELF score (IQR: 14.0-22.4 months)*: Lower risk < 9.80 Mid risk 9.80 - 11.29 Higher risk >11.29 Note: The ELF(TM) Score is a unitless numerical value. *Clark SA, Christian VW, Carol T, et al. Selonsertib for patients with bridging fibrosis or compensated cirrhosis due to CHEN: Results from randomized phase III STELLAR trials. J Hepatol. 2020 Nov;73(1):26-39. Performed at: [address] [id number] Customer Service Sales Associate: Ne Mcguire MD, Phone: [phone] Performed at: [address] [id number] Customer Service Sales Associate: Carlos Betancourt PhD, Phone: [phone] Performed By: #### L 300.3900, L500.4050, L3410.9992, L3410.9996, L3410.9994 ####[facility] [address] [place], [place], [phone] Anion gap in Serum or Plasma Ordered By: Prieto Gong on 02-04-2025 Anion gap [Moles/Vol] 13 mmol/L 5-15 [facility] BUN/creatinine ratioOrdered By: Prieto Gong on 02-04-2025 Urea nitrogen/Creatinine [Mass ratio] 15.6 mg/mg 10-20 [facility] Bilirubin, totalOrdered By: Prieto Gong on 02-04-2025 Bilirubin [Mass/Vol] 1.71 mg/dL High 0.00-1.30 [facility] Carbon dioxide, total [Moles /volume] in Central venous bloodOrdered By: Prieto Gong on 02-04-2025 CO2 [Moles/Vol] 23.2 mmol/L 21.0-32.0 [facility] Chloride assayOrdered By: Kate Gong on 02-04-2025 Chloride [Moles/Vol] 101 mmol/L 98-108 [facility] Comprehensive Metabolic Prof ilon 02-04-2025 Albumin [Mass/Vol] 4.6 g/dL Normal 3.4-4.8 [facility] Comment on above: Performed By: #### L 300.3900, L500.4050, L3410.9992, L3410.9996, L3410.9994 ####[facility] [address] [place], [address] Albumin/Globulin [Mass ratio] 1.4 {ratio} Normal 0.9-2.4 [facility] Comment on above: Performed By: #### L 300.3900, L500.4050, L3410.9992, L3410.9996, L3410.9994 ####[facility] [address] [place], [address] ALK PHOS 71 U/L Normal 40-129 [facility] Comment on above: Performed By: #### L 300.3900, L500.4050, L3410.9992, L3410.9996, L3410.9994 ####[facility] [address] [place], [address] ALT [Catalytic activity/Vol] 16 U/L Normal <=46 [facility] Comment on above: Performed By: #### L 300.3900, L500.4050, L3410.9992, L3410.9996, L3410.9994 ####[facility] [address] [place], [address] AST [Catalytic activity/Vol] 24 U/L Normal <=37 [facility] Comment on above: Performed By: #### L 300.3900, L500.4050, L3410.9992, L3410.9996, L3410.9994 ####[facility] [address] [place], [address] Bilirubin [Mass/Vol] 1.71 mg/dL High 0.00-1.30 [facility] Comment on above: Performed By: #### L 300.3900, L500.4050, L3410.9992, L3410.9996, L3410.9994 ####[facility] [address] [place], [address] BUN/CRE 15.6 RATIO Normal 10-20 [facility] Comment on above: Performed By: #### L 300.3900, L500.4050, L3410.9992, L3410.9996, L3410.9994 ####[facility] [address] [place], [address] Calcium [Mass/Vol] 9.9 mg/dL Normal 7.6-11.0 [facility] Comment on above: Performed By: #### L 300.3900, L500.4050, L3410.9992, L3410.9996, L3410.9994 ####[facility] [address] [place], [address] Chloride [Moles/Vol] 101 mmol/L Normal 98-108 [facility] Comment on above: Performed By: #### L 300.3900, L500.4050, L3410.9992, L3410.9996, L3410.9994 ####[facility] [address] [place], [address] CO2 [Moles/Vol] 23.2 mmol/L Normal 21.0-32.0 [facility] Comment on above: Performed By: #### L 300.3900, L500.4050, L3410.9992, L3410.9996, L3410.9994 ####[facility] [address] [place], [address] Creatinine [Mass/Vol] 1.38 mg/dL High 0.70-1.20 [facility] Comment on above: Performed By: #### L 300.3900, L500.4050, L3410.9992, L3410.9996, L3410.9994 ####[facility] [address] [place], [address] GAP 13 Normal 5-15 [facility] Comment on above: Performed By: #### L 300.3900, L500.4050, L3410.9992, L3410.9996, L3410.9994 ####[facility] [address] [place], [address] GFR/1.73 sq M.predicted among non-blacks MDRD (S/P/Bld) [Vol rate/Area] 54 mL/min/{1.73_m2} Low >60 [facility] Comment on above: Result Comment: mL/m in/1.73m2 CKD-EPI Creatinine Equation (2020) Performed By: #### L 300.3900, L500.4050, L3410.9992, L3410.9996, L3410.9994 ####[facility] [address] [place], [address] Globulin (S) [Mass/Vol] 3.2 g/dL Normal 2.2-4.2 [facility] Comment on above: Performed By: #### L 300.3900, L500.4050, L3410.9992, L3410.9996, L3410.9994 ####[facility] [address] [place], [address] Glucose [Mass/Vol] 108 mg/dL High 70-99 [facility] Comment on above: Performed By: #### L 300.3900, L500.4050, L3410.9992, L3410.9996, L3410.9994 ####[facility] [address] [place], [address] Potassium [Moles/Vol] 4.6 mmol/L Normal 3.3-5.1 [facility] Comment on above: Performed By: #### L 300.3900, L500.4050, L3410.9992, L3410.9996, L3410.9994 ####[facility] [address] [place], [address] Sodium [Moles/Vol] 137 mmol/L Normal 133-145 [facility] Comment on above: Performed By: #### L 300.3900, L500.4050, L3410.9992, L3410.9996, L3410.9994 ####[facility] [address] [place], [address] T PROT 7.8 g/dL Normal 5.9-8.4 [facility] Comment on above: Performed By: #### L 300.3900, L500.4050, L3410.9992, L3410.9996, L3410.9994 ####[facility] [address] [place], [address] Urea nitrogen [Mass/Vol] 22 mg/dL High 4- [facility] Comment on above: Performed By: #### L 300.3900, L500.4050, L3410.9992, L3410.9996, L3410.9994 ####[facility] [address] [place], [address] Gastroenterology Visit Repor ton 02-04-2025 Gastroenterology Visit Report [facility] Gastroenterology [address] [place] [address] OFFICE VISIT Date of Service: 02/04/25 MR#: [id number] Acct: [id number] Name: SEVERIANO HERNANDEZ Rep #: [id number] : 1955 Provider: Dr. Prieto suarez MD Age/Sex: 70/M Location: [facility] Status: Signed Intake Vital Signs 10/08/24 09:52 01/15/25 08:23 02/04/25 08:33 Height 6 ft 6 ft 6 ft Weight: 188 lb BMI 25.4 BP 130/68 H Blood Pressure Location Rt brachial Position Sitting Respiration 79 H Pulse Oximetry (%) 97 Oxygen Delivery Method room air Intake Visit Reasons: 4 M FU Allergies sacubitril (From Entresto) Allergy (Unknown, Verified 02/04/25 08:33) Itching valsartan (From Entresto) Allergy (Unknown, Verified 02/04/25 08:33) Itching pravastatin sodium (From Pravachol) Allergy (Verified 02/04/25 08:33) Unknown atorvastatin calcium (From Lipitor) Adverse Reaction (Verified 02/04/25 08:33) Pain in joints gemfibrozil Adverse Reaction (Verified 02/04/25 08:33) myalgia Medications ???Medication ???Instructions ???Recorded ???Confirmed ???Type aspirin 81 mg tablet,delayed 81 mg PO DAILY heart health 02/04/25 History release (Adult Aspirin Regimen) furosemide 40 mg tablet 40 mg PO .COMPLEX #180 tabs 02/04/25 Rx carvedilol 12.5 mg tablet 6.25 mg (1/2 x 12.5 mg) PO BID #90 05/28/24 02/04/25 Rx tabs apixaban 5 mg tablet (Eliquis) 5 mg PO .COMPLEX #180 tabs 5 02/04/25 Rx tramadol 50 mg tablet 50 mg PO QDAY PRN 10/15/24 5 History dapagliflozin propanediol 10 mg 10 mg PO QAM #60 tabs 10/30/24 Rx tablet lactulose 10 gram/15 mL (15 mL) 20 g (30 mL) PO BID 30 days #1,800 11/05/24 02/04/25 Rx oral solution mL losartan 50 mg tablet 50 mg PO QDAY #90 tabs 12/15/24 Rx spironolactone 50 mg tablet 25 mg (1/2 x 50 mg) PO DAILY 1 02/04/25 Rx month #15 tabs Have you fallen in the past year?: No PFSH Medical History Wears glasses Wrist injury Loss of consciousness Injury of back Dietary restriction Shortness of breath on exertion History of pain when walking History of edema History of echocardiogram History of stress test Cardiology follow-up encounter History of atrial fibrillation Non-smoker Coronary artery disease Hypertension Pure hypercholesterolemia Essential hypertension Atherosclerosis of coronary artery bypass graft without angina pectoris Non-ST elevation (NSTEMI) myocardial infarction White coat syndrome with hypertension RBBB Premature ventricular contraction Nonrheumatic aortic valve insufficiency Atherosclerosis of coronary artery of [place] heart without angina pectoris Surgical History History of cardiac catheterization Hx of colonoscopy History of coronary artery stent placement History of esophagogastroduodenoscopy (EGD) ( 2014) H/O coronary artery bypass surgery ( 08/12/15) Family History Mother CAD (coronary artery disease) Hypertension Grandmother Myocardial infarction Social History Smoking Status: Never smoker alcohol intake: current details: rare substance use type: does not use HPI HPI Details: SEVERIANO HERNANDEZ, is a 70 M who presents to the office today for follow up. Patient denies personal history of allergic or autoimmune disease. His sister has asthma and allergy. Denies first-degree family history of autoimmune disease 02.21.24- Liver bx, Liver parenchymal tissue with increased portal, periportal fibrosis, bridging fibrosis and changes suggestive of early cirrhosis OV 11.05.07- hospital f/u. 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 He underwent liver biopsy which showed early cirrhosis. He had paracentesis with removal of 8 liters. MELD score of 15. Since then he has underwent cardiac catheterization and had some issues with carvedilol which sent him back to hospital. EGD 1.07.09- Normal esophagus, nodular mucosa in the duodenal bulb. Path: Fragments of duodenal mucosa with moderate chronic inflammation and extensive gastric metaplasia OV 2.11.25- Pt well since last visit. States he is having some weakness but denies fatigue, sob, swelling, dizziness or confusion. Is not having abdominal pain. BM are normal once a day. No other concerns. Early cirrhosis diagnosed with liver biopsy. US abd/ elastography 07.10.24- Liver measures 15.6 cm, Stiffness 8.73 Ov 5.27.25- Pt well since last visit. States he has been having some weakness and joint pain. Denies dizzines (more content not included)... Normal [facility] Glomerular filtration rate ( GFR) estimation/1.73 sq m using serum, plasma, or whole bOrdered By: Prieto Gong on 02-04-2025 GFR/1.73 sq M.predicted among non-blacks MDRD (S/P/Bld) [Vol rate/Area] 54 mL/min/{1.73_m2} Low >60 [facility] Comment on above: mL/min/1.73m2 CKD-EP I Creatinine Equation (2020) International normalized rat io (INR) calculationOrdered By: Prieto Gong on 02-04-2025 INR Coag (Bld) [Relative time] 1.1 {INR} [facility] Laboratory - Chemistry and C hemistry - challengeOrdered By: Prieto Gong on 02-04-2025 AST [Catalytic activity/Vol] 24 U/L <38 [facility] Potassium measurement (mass/ volume)Ordered By: Prieto Gong on 02-04-2025 Potassium (Unsp spec) [Mass/Vol] 4.6 mmol/L 3.3-5.1 [facility] Prothrombin Time w/INRon INR Coag (PPP) [Relative time] 1.1 {INR} Normal [facility] Comment on above: Performed By: #### L 300.3900, L500.4050, L3410.9992, L3410.9996, L3410.9994 ####[facility] [address] [place], [place], [phone] PT Coag (PPP) [Time] 14.4 s Normal 11.7-14.9 [facility] Comment on above: Performed By: #### L 300.3900, L500.4050, L3410.9992, L3410.9996, L3410.9994 ####[facility] [address] [place], [place], [phone] Prothrombin timeOrdered By: Prieto Gong on 02-04-2025 PT Coag (PPP) [Time] 14.4 s 11.7-14.9 [facility] Serum creatinine measurement (mass/volume)Ordered By: Prieto Gong on 02-04-2025 Creatinine [Mass/Vol] 1.38 mg/dL High 0.70-1.20 [facility] Serum globulin measurementOr dered By: Prieto Gong on 02-04-2025 Globulin (S) [Mass/Vol] 3.2 g/dL 2.2-4.2 [facility] Serum glucose measurement (m ass/volume)Ordered By: Prieto Gong on 02-04-2025 Glucose [Mass/Vol] 108 mg/dL High 70-99 [facility] Serum or plasma alanine mccarthy otransferase (ALT) measurementOrdered By: Prieto Gong on 02-04-2025 ALT [Catalytic activity/Vol] 16 U/L <47 [facility] Serum or plasma albumin lyly urement (mass/volume)Ordered By: Prieto Gong on 02-04-2025 Albumin [Mass/Vol] 4.6 g/dL 3.4-4.8 [facility] Serum or plasma albumin/glob ulin mass ratioOrdered By: Prieto Gong on 02-04-2025 Albumin/Globulin [Mass ratio] 1.4 {ratio} 0.9-2.4 [facility] Serum or plasma alkaline ruby sphatase measurementOrdered By: Prieto Gong on 02-04-2025 ALP [Catalytic activity/Vol] 71 U/L 40-129 [facility] Serum or plasma calcium lyly urement (mass/volume)Ordered By: Prieto Gong on 02-04-2025 Calcium [Mass/Vol] 9.9 mg/dL 7.6-11.0 [facility] Serum or plasma urea nitroge n measurement (mass/volume)Ordered By: Prieto Gong on 02-04-2025 Urea nitrogen [Mass/Vol] 22 mg/dL High 4-19 [facility] Sodium levelOrdered By: Melvin Gong on 02-04-2025 Sodium [Moles/Vol] 137 mmol/L 133-145 [facility] Total proteinOrdered By: Eric Gong on 02-04-2025 Protein [Mass/Vol] 7.8 g/dL 5.9-8.4 [facility] Absolute lymphocyte countOrd ered By: Norris Grigsby on 01-15-2025 Lymphocytes Auto (Unsp spec) [#/Vol] 1.57 10*3/uL 0.83-4.51 [facility] Absolute neutrophil countOrd ered By: Norris Grigsby on 01-15-2025 Neutrophils (Bld) [#/Vol] 5.4 10*3/uL 2.0-7.7 [facility] Anion gap in Serum or Plasma Ordered By: Norris Grigsby on 01-15-2025 Anion gap [Moles/Vol] 11 mmol/L 5-15 [facility] Automated lymphocyte count a s percentage of total leukocytesOrdered By: Norris Grigsby on 09-03-2025 Lymphocytes/100 WBC Auto (Unsp spec) 19.2 % 19-41 [facility] BUN/creatinine ratioOrdered By: Norris Grigsby on 01-15-2025 Urea nitrogen/Creatinine [Mass ratio] 17.9 mg/mg 10- [facility] Basophil percentageOrdered B y: Norris Grigsby on 01-15-2025 Basophils/100 WBC (Bld) 0.9 % 0-1 [facility] Bilirubin, totalOrdered By: Norris Grigsby on 01-15-2025 Bilirubin [Mass/Vol] 1.69 mg/dL High 0.00-1.30 [facility] CBC W/Diff, Automatedon Absolute Lymph 1.57 X10 3/uL Normal 0.83-4.51 [facility] Comment on above: Performed By: #### L 100.0100, L500.4050, L500.4100 ####[facility] [address] [place], [address] Absolute Neut 5.4 X10 3/uL Normal 2.0-7.7 [facility] Comment on above: Performed By: #### L 100.0100, L500.4050, L500.4100 ####[facility] [address] [place], [address] Basophils/100 WBC (Bld) 0.9 % Normal 0-1 [facility] Comment on above: Performed By: #### L 100.0100, L500.4050, L500.4100 ####[facility] [address] [place], [address] Eosinophils/100 WBC (Bld) 4.8 % Normal 0-5 [facility] Comment on above: Performed By: #### L 100.0100, L500.4050, L500.4100 ####[facility] [address] [place], [address] Erythrocyte distribution width (RBC) [Ratio] 13.2 % Normal 11.6-14.6 [facility] Comment on above: Performed By: #### L 100.0100, L500.4050, L500.4100 ####[facility] [address] [place], [address] Hematocrit (Bld) [Volume fraction] 47.9 % Normal 40-54 [facility] Comment on above: Performed By: #### L 100.0100, L500.4050, L500.4100 ####[facility] [address] [place], [address] Hemoglobin (Bld) [Mass/Vol] 16.3 g/dL Normal 13.0-16.5 [facility] Comment on above: Performed By: #### L 100.0100, L500.4050, L500.4100 ####[facility] [address] [place], [address] IG% 0.200 Normal 0.0-0.9 [facility] Comment on above: Result Comment: IG% - Immature Granulocytes (promyelocytes, myelocytes and metamyelocytes) > 1% indicates that a LEFT SHIFT is Present. Performed By: #### L 100.0100, L500.4050, L500.4100 ####[facility] [address] [place], [address] Lymphocytes/100 WBC (Bld) 19.2 % Normal 19-41 [facility] Comment on above: Performed By: #### L 100.0100, L500.4050, L500.4100 ####[facility] [address] [place], [address] MCH (RBC) [Entitic mass] 31.2 pg Normal 27.0-32.0 [facility] Comment on above: Performed By: #### L 100.0100, L500.4050, L500.4100 ####[facility] [address] [place], [address] MCHC (RBC) [Mass/Vol] 34.0 g/dL Normal 32-36 [facility] Comment on above: Performed By: #### L 100.0100, L500.4050, L500.4100 ####[facility] [address] [place], [address] MCV (RBC) [Entitic vol] 91.8 fL Normal 80-94 [facility] Comment on above: Performed By: #### L 100.0100, L500.4050, L500.4100 ####[facility] [address] [place], [address] Monocytes/100 WBC (Bld) 8.3 % Normal 0-10 [facility] Comment on above: Performed By: #### L 100.0100, L500.4050, L500.4100 ####[facility] [address] [place], [address] Neutrophils/100 WBC (Bld) 66.6 % Normal 47-70 [facility] Comment on above: Performed By: #### L 100.0100, L500.4050, L500.4100 ####[facility] [address] [place], [address] Nucleated RBC (Bld) [#/Vol] 0 10*3/uL Normal 0-5 [facility] Comment on above: Performed By: #### L 100.0100, L500.4050, L500.4100 ####[facility] [address] [place], [address] Platelet mean volume (Bld) [Entitic vol] 8.8 fL Normal 6.2-12.0 [facility] Comment on above: Performed By: #### L 100.0100, L500.4050, L500.4100 ####[facility] [address] [place], [address] Platelets (Bld) [#/Vol] 238 10*3/uL Normal 150-450 [facility] Comment on above: Performed By: #### L 100.0100, L500.4050, L500.4100 ####[facility] [address] [place], [address] RBC (Bld) [#/Vol] 5.22 10*6/uL Normal 4.6-6.2 [facility] Comment on above: Performed By: #### L 100.0100, L500.4050, L500.4100 ####[facility] [address] [place], [address] RDW SD 45.3 fl High 35.1-43.9 [facility] Comment on above: Performed By: #### L 100.0100, L500.4050, L500.4100 ####[facility] [address] [place], [address] WBC (Bld) [#/Vol] 8.2 10*3/uL Normal 4.4-11.0 [facility] Comment on above: Performed By: #### L 100.0100, L500.4050, L500.4100 ####[facility] [address] [place], [address] Calculated very low density lipoprotein (VLDL) cholesterol measurementOrdered By: Norris Grigsby on 01-15-2025 Calculated very low density lipoprotein (VLDL) cholesterol measurement 12 mg/dL 5-40 [facility] Carbon dioxide, total [Moles /volume] in Central venous bloodOrdered By: Norris Grigsby on 01-15-2025 CO2 [Moles/Vol] 22.7 mmol/L 21.0-32.0 [facility] Cardiology Visit Reporton Cardiology Visit Report [facility] [address] [place], [place] [address] OFFICE VISIT Date of Service: 01/15/25 MR#: [id number] Acct: [id number] Name: SEVERIANO HERNANDEZ BARI Rep #: [id number] 5 : 1955 Provider: PHILIP sims Age/Sex: 70/M Location: [facility] Status: Signed HPI HPI History of Present Illness Details: SEVERIANO HERNANDEZ, is a 70 M who presents to the office today for a cardiovascular outpatient follow-up. He has a history of coronary artery disease status post three-vessel bypass surgery in [address] Dillard at [facility] with REYES to distal of the LAD, SVG to obtuse marginal, and SVG to PDA. He also underwent PTCA/ERROL to RCA x2 in October 2017 and PTCA/ERROL to mid RAMUS on 07/27/2018. He also has a history of hypertension and hyperlipidemia. He was last in the office in 05/2022. Patient presented to [facility] on 02/20/2024 with multiple complaints. He had blood work done by his primary care doctor and it did demonstrate an elevated troponin. He also had ascites and pedal edema. He was also noted to be tachycardic in the emergency room and it was felt that it was a 2-1 atrial flutter. Patient did undergo an echocardiogram which demonstrated an ejection fraction of 10%, mildly dilated LV with moderately severe mitral insufficiency. Patient was started on carvedilol, Jardiance, Lasix, Entresto however this may need to have been held due to hypotension. He did undergo a stress test on an outpatient basis, this was abnormal with mild anterior lateral and apical ischemia with a dilated cardiomyopathy. He did undergo a diagnostic heart catheterization on 03/08/2024 which demonstrated severe disease with a patent REYES to the LAD, SVG graft obtuse marginal occluded, SVG to the right coronary and [place] coronary artery with a dilated cardiomyopathy. Control of his atrial fibrillation was recommended along with guided medical therapy for his cardiomyopathy and then to consider a prophylactic ICD. Repeat echo in 05/2024 demonstrated and EF of 10%. He denies chest, arm, jaw, or neck discomfort. He denies palpitations. He denies bilateral lower extremity edema. He denies claudication. He denies shortness of breath with activity, shortness of breath at rest, orthopnea, or PND. He denies chronic cough. He denies significant, sudden weight gain. He states dizziness, weakness, and blurry vision since increasing spironolactone. He denies lightheadedness, near-syncope, or syncope. He denies blood in urine, blood in stool, or epistaxis. He denies fever with chills. He denies myalgia. He states blurry vision on occasion that he attributes to medication. He acknowledges occasional weakness. He states fatigue. His exercise level has remained stable. Intake Vital Signs 10/15/24 08:18 01/15/25 08:23 Height 6 ft 6 ft Weight: 183 lb 185 lb BMI 24.8 25.0 BP 147/77 H 120/62 Blood Pressure Location Lt brachial Lt brachial Position Sitting Sitting Respiration 16 16 Pulse 80 93 Pulse Source NIBP NIBP Intake Visit Reasons: 3-4 M FU Back Grinder Required: No Is patient in pain?: No Allergies sacubitril (From Entresto) Allergy (Unknown, Verified 01/15/25 08:28) Itching valsartan (From Entresto) Allergy (Unknown, Verified 01/15/25 08:28) Itching pravastatin sodium (From Pravachol) Allergy (Verified 01/15/25 08:28) Unknown atorvastatin calcium (From Lipitor) Adverse Reaction (Verified 01/15/25 08:28) Pain in joints gemfibrozil Adverse Reaction (Verified 01/15/25 08:28) myalgia Medications ???Medication ???Instructions ???Recorded ???Confirmed ???Type aspirin 81 mg tablet,delayed 81 mg PO DAILY heart health 01/15/25 History release (Adult Aspirin Regimen) furosemide 40 mg tablet 40 mg PO .COMPLEX #180 tabs 01/15/25 Rx carvedilol 12.5 mg tablet 6.25 mg (1/2 x 12.5 mg) PO BID #90 05/28/24 01/15/25 Rx tabs apixaban 5 mg tablet (Eliquis) 5 mg PO .COMPLEX #180 tabs 5 01/15/25 Rx spironolactone 50 mg tablet 50 mg PO DAILY 1 month #30 tabs 01/15/25 Rx tramadol 50 mg tablet 50 mg PO QDAY PRN 10/15/24 5 History dapagliflozin propanediol 10 mg 10 mg PO QAM #60 tabs 10/30/2408/06 Rx tablet lactulose 10 gram/15 mL (15 mL) 20 g (30 mL) PO BID 30 days #1,800 11/05/24 01/15/25 Rx oral solution mL losartan 50 mg tablet 50 mg PO QDAY #90 tabs 12/15/24 Rx Ejection fraction %: 25 Have you fallen in the past year?: [facility] Wears glasses Wrist injury Loss of consciousness Injury of back Dietary restriction Shortness of breath on exertion History of pain when walking History of edema History of echocardiogram History of stress test Cardiology follow-up en (more content not included)... Normal [facility] Chloride assayOrdered By: Manisha Grigsby on 01-15-2025 Chloride [Moles/Vol] 103 mmol/L 98-108 [facility] Comprehensive Metabolic Prof ilon 01-15-2025 Albumin [Mass/Vol] 4.5 g/dL Normal 3.4-4.8 [facility] Comment on above: Performed By: #### L 100.0100, L500.4050, L500.4100 ####[facility] [address] [place], [address] Albumin/Globulin [Mass ratio] 1.5 {ratio} Normal 0.9-2.4 [facility] Comment on above: Performed By: #### L 100.0100, L500.4050, L500.4100 ####[facility] [address] [place], [address] ALK PHOS 67 U/L Normal 40-129 [facility] Comment on above: Performed By: #### L 100.0100, L500.4050, L500.4100 ####[facility] [address] [place], [address] ALT [Catalytic activity/Vol] 19 U/L Normal <=46 [facility] Comment on above: Performed By: #### L 100.0100, L500.4050, L500.4100 ####[facility] [address] [place], [address] AST [Catalytic activity/Vol] 23 U/L Normal <=37 [facility] Comment on above: Performed By: #### L 100.0100, L500.4050, L500.4100 ####[facility] [address] [place], [address] Bilirubin [Mass/Vol] 1.69 mg/dL High 0.00-1.30 [facility] Comment on above: Performed By: #### L 100.0100, L500.4050, L500.4100 ####[facility] [address] [place], [address] BUN/CRE 17.9 RATIO Normal 10-20 [facility] Comment on above: Performed By: #### L 100.0100, L500.4050, L500.4100 ####[facility] [address] [place], [address] Calcium [Mass/Vol] 9.9 mg/dL Normal 7.6-11.0 [facility] Comment on above: Performed By: #### L 100.0100, L500.4050, L500.4100 ####[facility] [address] [place], [address] Chloride [Moles/Vol] 103 mmol/L Normal 98-108 [facility] Comment on above: Performed By: #### L 100.0100, L500.4050, L500.4100 ####[facility] [address] [place], [address] CO2 [Moles/Vol] 22.7 mmol/L Normal 21.0-32.0 [facility] Comment on above: Performed By: #### L 100.0100, L500.4050, L500.4100 ####[facility] [address] [place], [address] Creatinine [Mass/Vol] 1.47 mg/dL High 0.70-1.20 [facility] Comment on above: Performed By: #### L 100.0100, L500.4050, L500.4100 ####[facility] [address] [place], [address] GAP 11 Normal 5-15 [facility] Comment on above: Performed By: #### L 100.0100, L500.4050, L500.4100 ####[facility] [address] [place], [address] GFR/1.73 sq M.predicted among non-blacks MDRD (S/P/Bld) [Vol rate/Area] 50 mL/min/{1.73_m2} Low >60 [facility] Comment on above: Result Comment: mL/m in/1.73m2 CKD-EPI Creatinine Equation (2020) Performed By: #### L 100.0100, L500.4050, L500.4100 ####[facility] [address] [place], [address] Globulin (S) [Mass/Vol] 2.9 g/dL Normal 2.2-4.2 [facility] Comment on above: Performed By: #### L 100.0100, L500.4050, L500.4100 ####[facility] [address] [place], [address] Glucose [Mass/Vol] 115 mg/dL High 70-99 [facility] Comment on above: Performed By: #### L 100.0100, L500.4050, L500.4100 ####[facility] [address] [place], [address] Potassium [Moles/Vol] 4.5 mmol/L Normal 3.3-5.1 [facility] Comment on above: Performed By: #### L 100.0100, L500.4050, L500.4100 ####[facility] [address] [place], [address] Sodium [Moles/Vol] 137 mmol/L Normal 133-145 [facility] Comment on above: Performed By: #### L 100.0100, L500.4050, L500.4100 ####[facility] [address] [place], [address] T PROT 7.4 g/dL Normal 5.9-8.4 [facility] Comment on above: Performed By: #### L 100.0100, L500.4050, L500.4100 ####[facility] [address] [place], [address] Urea nitrogen [Mass/Vol] 26 mg/dL High 4-19 [facility] Comment on above: Performed By: #### L 100.0100, L500.4050, L500.4100 ####[facility] [address] [place], [address] Eosinophil percentageOrdered By: Norris Grigsby on 01-15-2025 Eosinophils/100 WBC (Bld) 4.8 % 0-5 [facility] Erythrocyte distribution wid th ratioOrdered By: Norris Grigsby on 01-15-2025 Erythrocyte distribution width (RBC) [Ratio] 13.2 % 11.6-14.6 [facility] Erythrocyte distribution wid th standard deviationOrdered By: Norris Grigsby on 01-15-2025 Erythrocyte distribution width (RBC) [Ratio] 45.3 fl High 35.1-43.9 [facility] Glomerular filtration rate ( GFR) estimation/1.73 sq m using serum, plasma, or whole bOrdered By: Norris Grigsby on 01-15-2025 GFR/1.73 sq M.predicted among non-blacks MDRD (S/P/Bld) [Vol rate/Area] 50 mL/min/{1.73_m2} Low >60 [facility] Comment on above: mL/min/1.73m2 CKD-EP I Creatinine Equation (2020) Hematocrit Auto (Bld) [Volum e fraction]Ordered By: Norris Grigsby on 01-15-2025 Hematocrit (Bld) [Volume fraction] 47.9 % 40-54 [facility] Hemoglobin measurementOrdere d By: Norris Grigsby on 01-15-2025 Hemoglobin (Bld) [Mass/Vol] 16.3 g/dL 13.0-16.5 [facility] Immature granulocytes/100 WB C Auto (Bld)Ordered By: Norris Grigsby on 01-15-2025 Immature granulocytes/100 WBC (Bld) 0.200 % 0.0-0.9 [facility] Comment on above: IG% - Immature Granu locytes (promyelocytes, myelocytes and metamyelocytes) > 1% indicates that a LEFT SHIFT is Present. LDL calc ser/plasOrdered By: Norris Grigsby on 01-15-2025 Cholesterol in LDL [Mass/Vol] 94 mg/dL [facility] Comment on above: Lplltngsun=652-748 m g/dL & Higher Ajpx=942 mg/dL or greaterFriedwald Equation for LDL-C Laboratory - Chemistry and C hemistry - challengeOrdered By: Norris Grigsby on 01-15-2025 AST [Catalytic activity/Vol] 23 U/L <38 [facility] Lipid Profileon 01-15-2025 CHOL:HDL 2.65 Normal [facility] Comment on above: Performed By: #### L 100.0100, L500.4050, L500.4100 ####[facility] [address] [place], [place], [address] Cholesterol [Mass/Vol] 171 mg/dL Normal <=[address] [facility] Comment on above: Result Comment: Chol esterol level, Desirable <200 mg/dL Borderline high cholesterol 200-239 mg/dL High cholesterol >=240 mg/dL Recommendations of the NCEP Adult Treatment Panel for the following risk-cutoff thresholds for the [place] population. Performed By: #### L 100.0100, L500.4050, L500.4100 ####[facility] [address] [place], [address] Cholesterol in HDL [Mass/Vol] 65 mg/dL Normal [facility] Comment on above: Result Comment: [place] onal Cholesterol Education Program (NCEP) guidelines: <40 mg/dL: Low HDL-cholesterol (major risk factor for CHD) >= 60 mg/dL: High HDL-cholesterol (negative risk factor for CHD) HDL-cholesterol is affected by a number of factors, e.g. smoking, exercise, hormones, sex and age. Performed By: #### L 100.0100, L500.4050, L500.4100 ####[facility] [address] [place], [address] Cholesterol in LDL [Mass/Vol] 94 mg/dL Normal [facility] Comment on above: Result Comment: Bord yxiwiv=926-660 mg/dL Higher Ehqx=056 mg/dL or greater Friedwald Equation for LDL-C Performed By: #### L 100.0100, L500.4050, L500.4100 ####[facility] [address] [place], [address] Cholesterol in VLDL [Mass/Vol] 12 mg/dL Normal 5-40 [facility] Comment on above: Performed By: #### L 100.0100, L500.4050, L500.4100 ####[facility] [address] [place], [address] Triglyceride [Mass/Vol] 62 mg/dL Normal [facility] Comment on above: Result Comment: The drugs N-Acetylcysteine and Metamizole may falsely depress this assay. Normal range: <150 mg/dL Borderline High: 150-199 mg/dL High: 200-499 mg/dL Very High: >500 mg/dL Performed By: #### L 100.0100, L500.4050, L500.4100 ####[facility] [address] [place], [address] MCV (mean corpuscular volume ) determinationOrdered By: Norris Grigsby on 01-15-2025 MCV (RBC) [Entitic vol] 91.8 fL 80-94 [facility] Mean corpuscular hemoglobin (MCH) determinationOrdered By: Norris Grigsby on 01-15-2025 MCH (RBC) [Entitic mass] 31.2 pg 27.0-32.0 [facility] Mean corpuscular hemoglobin concentration (MCHC) determinationOrdered By: Norris Grigsby on 01-15-2025 MCHC (RBC) [Mass/Vol] 34.0 g/dL 32-36 [facility] Mean platelet volume determi nationOrdered By: Norris Grigsby on 01-15-2025 Platelet mean volume (Bld) [Entitic vol] 8.8 fL 6.2-12.0 [facility] Monocyte percentageOrdered B y: Norris Grigsby on 01-15-2025 Monocytes/100 WBC (Bld) 8.3 % 0-10 [facility] Neutrophil percentageOrdered By: Norris Grigsby on 01-15-2025 Neutrophils/100 WBC (Bld) 66.6 % 47-70 [facility] Nucleated red blood cell per centageOrdered By: Norris Grigsby on 01-15-2025 Nucleated RBC/100 WBC (Bld) [Ratio] 0 % 0-5 [facility] Platelet countOrdered By: Manisha Grigsby on 01-15-2025 Platelets (Bld) [#/Vol] 238 10*3/uL 150-450 [facility] Potassium measurement (mass/ volume)Ordered By: Norris Grigsby on 01-15-2025 Potassium (Unsp spec) [Mass/Vol] 4.5 mmol/L 3.3-5.1 [facility] RBC Auto (Bld) [#/Vol]Ordere d By: Norris Grigsby on 01-15-2025 RBC (Bld) [#/Vol] 5.22 10*6/uL 4.6-6.2 [facility] Screening total cholesterol/ high density lipoprotein (HDL) cholesterol ratioOrdered By: Norris Grigsby on 01-15-2025 Cholesterol.total/Chol esterol in HDL [Mass ratio] 2.65 {ratio} [facility] Serum creatinine measurement (mass/volume)Ordered By: Norris Grigsby on 01-15-2025 Creatinine [Mass/Vol] 1.47 mg/dL High 0.70-1.20 [facility] Serum globulin measurementOr dered By: Norris Grigsby on 01-15-2025 Globulin (S) [Mass/Vol] 2.9 g/dL 2.2-4.2 [facility] Serum glucose measurement (m ass/volume)Ordered By: Norris Grigsby on 01-15-2025 Glucose [Mass/Vol] 115 mg/dL High 70-99 [facility] Serum or plasma alanine mccarthy otransferase (ALT) measurementOrdered By: Norris Grigsby on 01-15-2025 ALT [Catalytic activity/Vol] 19 U/L <47 [facility] Serum or plasma albumin lyly urement (mass/volume)Ordered By: Norris Grigsby on 01-15-2025 Albumin [Mass/Vol] 4.5 g/dL 3.4-4.8 [facility] Serum or plasma albumin/glob ulin mass ratioOrdered By: Norris Grigsby on 01-15-2025 Albumin/Globulin [Mass ratio] 1.5 {ratio} 0.9-2.4 [facility] Serum or plasma alkaline ruby sphatase measurementOrdered By: Norris Grigsby on 01-15-2025 ALP [Catalytic activity/Vol] 67 U/L 40-129 [facility] Serum or plasma calcium lyly urement (mass/volume)Ordered By: Norris Grigsby on 01-15-2025 Calcium [Mass/Vol] 9.9 mg/dL 7.6-11.0 [facility] Serum or plasma cholesterol in HDL measurement (mass/volume)Ordered By: Norris Grigsby on 01-15-2025 Cholesterol in HDL [Mass/Vol] 65 mg/dL >40 [facility] Comment on above: National Cholesterol Education Program (NCEP) guidelines:<40 mg/dL: Low HDL-cholesterol (major risk factor for CHD)>= 60 mg/dL: High HDL-cholesterol (negative risk factor for CHD)HDL-cholesterol is affected by a number of factors, e.g. smoking, exercise, hormones, sex and age. Serum or plasma cholesterol measurement (mass/volume)Ordered By: Norris Grigsby on 01-15-2025 Cholesterol [Mass/Vol] 171 mg/dL <[address] [facility] Comment on above: Cholesterol level, D esirable <200 mg/dLBorderline high cholesterol 200-239 mg/dLHigh cholesterol >=240 mg/dLRecommendations of the NCEP Adult Treatment Panel for the following risk-cutoff thresholds for the [place] population. Serum or plasma urea nitroge n measurement (mass/volume)Ordered By: Norris Grigsby on 01-15-2025 Urea nitrogen [Mass/Vol] 26 mg/dL High 4-19 [facility] Sodium levelOrdered By: Norris Grigsby on 01-15-2025 Sodium [Moles/Vol] 137 mmol/L 133-145 [facility] Total proteinOrdered By: Benton Grigsby on 01-15-2025 Protein [Mass/Vol] 7.4 g/dL 5.9-8.4 [facility] Triglycerides measurementOrd ered By: Norris Grigsby on 01-15-2025 Triglyceride [Mass/Vol] 62 mg/dL <199 [facility] Comment on above: The drugs N-Acetylcy steine and Metamizole may falsely depress this assay. Normal range: <150 mg/dLBorderline High: 150-199 mg/dLHigh: 200-499 mg/dLVery High: >500 mg/dL White blood cell (WBC) count Ordered By: Norris Grigsby on 01-15-2025 WBC (Bld) [#/Vol] 8.2 10*3/uL 4.4-11.0 [facility] [facility] Absolute lymphocyte countOrd ered By: Norris Grigsby on 11-25-2024 Lymphocytes Auto (Unsp spec) [#/Vol] 1.38 10*3/uL 0.83-4.51 [facility] Absolute neutrophil countOrd ered By: Norris Grigsby on 11-25-2024 Neutrophils (Bld) [#/Vol] 5.3 10*3/uL 2.0-7.7 [facility] Anion gap in Serum or Plasma Ordered By: Norris Grigsby on 11-25-2024 Anion gap [Moles/Vol] 13 mmol/L 5-15 [facility] Automated lymphocyte count a s percentage of total leukocytesOrdered By: Norris Grigsby on 11-25-2024 Lymphocytes/100 WBC Auto (Unsp spec) 18.0 % Low 19-41 [facility] BUN/creatinine ratioOrdered By: Norris Grigsby on 11-25-2024 Urea nitrogen/Creatinine [Mass ratio] 15.7 mg/mg 10-20 [facility] Basophil percentageOrdered B y: Norris Grigsby on 11-25-2024 Basophils/100 WBC (Bld) 0.8 % 0-1 [facility] Bilirubin, totalOrdered By: Norris Grigsby on 11-25-2024 Bilirubin [Mass/Vol] 1.48 mg/dL High 0.00-1.30 [facility] CBC W/Diff, Automatedon 11-12 Absolute Lymph 1.38 X10 3/uL Normal 0.83-4.51 [facility] Comment on above: Performed By: #### L 100.0100, L500.4050 ####[facility] [address] [place], [address] Absolute Neut 5.3 X10 3/uL Normal 2.0-7.7 [facility] Comment on above: Performed By: #### L 100.0100, L500.4050 ####[facility] [address] [place], [address] Basophils/100 WBC (Bld) 0.8 % Normal 0-1 [facility] Comment on above: Performed By: #### L 100.0100, L500.4050 ####[facility] [address] [place], [address] Eosinophils/100 WBC (Bld) 4.0 % Normal 0-5 [facility] Comment on above: Performed By: #### L 100.0100, L500.4050 ####[facility] [address] [place], [address] Erythrocyte distribution width (RBC) [Ratio] 13.7 % Normal 11.6-14.6 [facility] Comment on above: Performed By: #### L 100.0100, L500.4050 ####[facility] [address] [place], [address] Hematocrit (Bld) [Volume fraction] 46.1 % Normal 40-54 [facility] Comment on above: Performed By: #### L 100.0100, L500.4050 ####[facility] [address] [place], [address] Hemoglobin (Bld) [Mass/Vol] 15.9 g/dL Normal 13.0-16.5 [facility] Comment on above: Performed By: #### L 100.0100, L500.4050 ####[facility] [address] [place], [address] IG% 0.300 Normal 0.0-0.9 [facility] Comment on above: Result Comment: IG% - Immature Granulocytes (promyelocytes, myelocytes and metamyelocytes) > 1% indicates that a LEFT SHIFT is Present. Performed By: #### L 100.0100, L500.4050 ####[facility] [address] [place], [address] Lymphocytes/100 WBC (Bld) 18.0 % Low 19-41 [facility] Comment on above: Performed By: #### L 100.0100, L500.4050 ####[facility] [address] [place], [address] MCH (RBC) [Entitic mass] 31.4 pg Normal 27.0-32.0 [facility] Comment on above: Performed By: #### L 100.0100, L500.4050 ####[facility] [address] [place], [address] MCHC (RBC) [Mass/Vol] 34.5 g/dL Normal 32-36 [facility] Comment on above: Performed By: #### L 100.0100, L500.4050 ####[facility] [address] [place], [address] MCV (RBC) [Entitic vol] 91.1 fL Normal 80-94 [facility] Comment on above: Performed By: #### L 100.0100, L500.4050 ####[facility] [address] [place], [address] Monocytes/100 WBC (Bld) 8.6 % Normal 0-10 [facility] Comment on above: Performed By: #### L 100.0100, L500.4050 ####[facility] [address] [place], [address] Neutrophils/100 WBC (Bld) 68.3 % Normal 47-70 [facility] Comment on above: Performed By: #### L 100.0100, L500.4050 ####[facility] [address] [place], [address] Nucleated RBC (Bld) [#/Vol] 0 10*3/uL Normal 0-5 [facility] Comment on above: Performed By: #### L 100.0100, L500.4050 ####[facility] [address] [place], [address] Platelet mean volume (Bld) [Entitic vol] 8.7 fL Normal 6.2-12.0 [facility] Comment on above: Performed By: #### L 100.0100, L500.4050 ####[facility] [address] [place], [address] Platelets (Bld) [#/Vol] 228 10*3/uL Normal 150-450 [facility] Comment on above: Performed By: #### L 100.0100, L500.4050 ####[facility] [address] [place], [address] RBC (Bld) [#/Vol] 5.06 10*6/uL Normal 4.6-6.2 [facility] Comment on above: Performed By: #### L 100.0100, L500.4050 ####[facility] [address] [place], [address] RDW SD 46.2 fl High 35.1-43.9 [facility] Comment on above: Performed By: #### L 100.0100, L500.4050 ####[facility] [address] [place], [address] WBC (Bld) [#/Vol] 7.7 10*3/uL Normal 4.4-11.0 [facility] Comment on above: Performed By: #### L 100.0100, L500.4050 ####[facility] [address] [place], [address] Carbon dioxide, total [Moles /volume] in Central venous bloodOrdered By: Norris Grigsby on 11-25-2024 CO2 [Moles/Vol] 21.6 mmol/L 21.0-32.0 [facility] Chloride assayOrdered By: Manisha Grigsby on 11-25-2024 Chloride [Moles/Vol] 103 mmol/L 98-108 [facility] Comprehensive Metabolic Prof ilon 11-25-2024 Albumin [Mass/Vol] 4.2 g/dL Normal 3.4-4.8 [facility] Comment on above: Performed By: #### L 100.0100, L500.4050 ####[facility] [address] [place], [address] Albumin/Globulin [Mass ratio] 1.3 {ratio} Normal 0.9-2.4 [facility] Comment on above: Performed By: #### L 100.0100, L500.4050 ####[facility] [address] [place], [address] ALK PHOS 74 U/L Normal 40-129 [facility] Comment on above: Performed By: #### L 100.0100, L500.4050 ####[facility] [address] [place], [address] ALT [Catalytic activity/Vol] 14 U/L Normal <=46 [facility] Comment on above: Performed By: #### L 100.0100, L500.4050 ####[facility] [address] [place], [address] AST [Catalytic activity/Vol] 22 U/L Normal <=37 [facility] Comment on above: Performed By: #### L 100.0100, L500.4050 ####[facility] [address] [place], [address] Bilirubin [Mass/Vol] 1.48 mg/dL High 0.00-1.30 [facility] Comment on above: Performed By: #### L 100.0100, L500.4050 ####[facility] [address] [place], [address] BUN/CRE 15.7 RATIO Normal 10-20 [facility] Comment on above: Performed By: #### L 100.0100, L500.4050 ####[facility] [address] [place], [address] Calcium [Mass/Vol] 9.4 mg/dL Normal 7.6-11.0 [facility] Comment on above: Performed By: #### L 100.0100, L500.4050 ####[facility] [address] [place], [address] Chloride [Moles/Vol] 103 mmol/L Normal 98-108 [facility] Comment on above: Performed By: #### L 100.0100, L500.4050 ####[facility] [address] [place], [address] CO2 [Moles/Vol] 21.6 mmol/L Normal 21.0-32.0 [facility] Comment on above: Performed By: #### L 100.0100, L500.4050 ####[facility] [address] [place], [address] Creatinine [Mass/Vol] 1.42 mg/dL High 0.70-1.20 [facility] Comment on above: Performed By: #### L 100.0100, L500.4050 ####[facility] [address] [place], [address] GAP 13 Normal 5-15 [facility] Comment on above: Performed By: #### L 100.0100, L500.4050 ####[facility] [address] [place], [address] GFR/1.73 sq M.predicted among non-blacks MDRD (S/P/Bld) [Vol rate/Area] 53 mL/min/{1.73_m2} Low >60 [facility] Comment on above: Result Comment: mL/m in/1.73m2 CKD-EPI Creatinine Equation (2020) Performed By: #### L 100.0100, L500.4050 ####[facility] [address] [place], [address] Globulin (S) [Mass/Vol] 3.1 g/dL Normal 2.2-4.2 [facility] Comment on above: Performed By: #### L 100.0100, L500.4050 ####[facility] [address] [place], [address] Glucose [Mass/Vol] 118 mg/dL High 70-99 [facility] Comment on above: Performed By: #### L 100.0100, L500.4050 ####[facility] [address] [place], [address] Potassium [Moles/Vol] 4.0 mmol/L Normal 3.3-5.1 [facility] Comment on above: Performed By: #### L 100.0100, L500.4050 ####[facility] [address] [place], [address] Sodium [Moles/Vol] 138 mmol/L Normal 133-145 [facility] Comment on above: Performed By: #### L 100.0100, L500.4050 ####[facility] [address] [place], [address] T PROT 7.3 g/dL Normal 5.9-8.4 [facility] Comment on above: Performed By: #### L 100.0100, L500.4050 ####[facility] [address] [place], [address] Urea nitrogen [Mass/Vol] 22 mg/dL High 4-19 [facility] Comment on above: Performed By: #### L 100.0100, L500.4050 ####[facility] [address] [place], [address] Eosinophil percentageOrdered By: Norris Grigsby on 11-25-2024 Eosinophils/100 WBC (Bld) 4.0 % 0-5 [facility] Erythrocyte distribution wid th ratioOrdered By: Norris Grigsby on 11-25-2024 Erythrocyte distribution width (RBC) [Ratio] 13.7 % 11.6-14.6 [facility] Erythrocyte distribution wid th standard deviationOrdered By: Norris Grigsby on 11-25-2024 Erythrocyte distribution width (RBC) [Ratio] 46.2 fl High 35.1-43.9 [facility] Glomerular filtration rate ( GFR) estimation/1.73 sq m using serum, plasma, or whole bOrdered By: Norris Grigsby on 11-25-2024 GFR/1.73 sq M.predicted among non-blacks MDRD (S/P/Bld) [Vol rate/Area] 53 mL/min/{1.73_m2} Low >60 [facility] Comment on above: mL/min/1.73m2 CKD-EP I Creatinine Equation (2020) Hematocrit Auto (Bld) [Volum e fraction]Ordered By: Norris Grigsby on 11-25-2024 Hematocrit (Bld) [Volume fraction] 46.1 % 40-54 [facility] Hemoglobin measurementOrdere d By: Norris Grigsby on 11-25-2024 Hemoglobin (Bld) [Mass/Vol] 15.9 g/dL 13.0-16.5 [facility] Immature granulocytes/100 WB C Auto (Bld)Ordered By: Norris Grigsby on 11-25-2024 Immature granulocytes/100 WBC (Bld) 0.300 % 0.0-0.9 [facility] Comment on above: IG% - Immature Granu locytes (promyelocytes, myelocytes and metamyelocytes) > 1% indicates that a LEFT SHIFT is Present. Laboratory - Chemistry and C hemistry - challengeOrdered By: Norris Grigsby on 11-25-2024 AST [Catalytic activity/Vol] 22 U/L <38 [facility] MCV (mean corpuscular volume ) determinationOrdered By: Norris Grigsby on 11-25-2024 MCV (RBC) [Entitic vol] 91.1 fL 80-94 [facility] Mean corpuscular hemoglobin (MCH) determinationOrdered By: Norris Grigsby on 11-25-2024 MCH (RBC) [Entitic mass] 31.4 pg 27.0-32.0 [facility] Mean corpuscular hemoglobin concentration (MCHC) determinationOrdered By: Norris Grigsby on 11-25-2024 MCHC (RBC) [Mass/Vol] 34.5 g/dL 32-36 [facility] Mean platelet volume determi nationOrdered By: Norris Grigsby on 11-25-2024 Platelet mean volume (Bld) [Entitic vol] 8.7 fL 6.2-12.0 [facility] Monocyte percentageOrdered B y: Norris Grigsby on 11-25-2024 Monocytes/100 WBC (Bld) 8.6 % 0-10 [facility] Neutrophil percentageOrdered By: Norris Grigsby on 11-25-2024 Neutrophils/100 WBC (Bld) 68.3 % 47-70 [facility] Nucleated red blood cell per centageOrdered By: Norris Grigsby on 11-25-2024 Nucleated RBC/100 WBC (Bld) [Ratio] 0 % 0-5 [facility] Platelet countOrdered By: Manisha Grigsby on 11-25-2024 Platelets (Bld) [#/Vol] 228 10*3/uL 150-450 [facility] Potassium measurement (mass/ volume)Ordered By: Norris Grigsby on 11-25-2024 Potassium (Unsp spec) [Mass/Vol] 4.0 mmol/L 3.3-5.1 [facility] RBC Auto (Bld) [#/Vol]Ordere d By: Norris Grigsby on 11-25-2024 RBC (Bld) [#/Vol] 5.06 10*6/uL 4.6-6.2 [facility] Serum creatinine measurement (mass/volume)Ordered By: Norris Grigsby on 11-25-2024 Creatinine [Mass/Vol] 1.42 mg/dL High 0.70-1.20 [facility] Serum globulin measurementOr dered By: Norris Grigsby on 11-25-2024 Globulin (S) [Mass/Vol] 3.1 g/dL 2.2-4.2 [facility] Serum glucose measurement (m ass/volume)Ordered By: Norris Grigsby on 11-25-2024 Glucose [Mass/Vol] 118 mg/dL High 70-99 [facility] Serum or plasma alanine mccarthy otransferase (ALT) measurementOrdered By: Norris Grigsby on 11-25-2024 ALT [Catalytic activity/Vol] 14 U/L <47 [facility] Serum or plasma albumin lyly urement (mass/volume)Ordered By: Norris Grigsby on 11-25-2024 Albumin [Mass/Vol] 4.2 g/dL 3.4-4.8 [facility] Serum or plasma albumin/glob ulin mass ratioOrdered By: Norris Grigsby on 11-25-2024 Albumin/Globulin [Mass ratio] 1.3 {ratio} 0.9-2.4 [facility] Serum or plasma alkaline ruby sphatase measurementOrdered By: Norris Grigsby on 11-25-2024 ALP [Catalytic activity/Vol] 74 U/L 40-129 [facility] Serum or plasma calcium lyly urement (mass/volume)Ordered By: Norris Grigsby on 11-25-2024 Calcium [Mass/Vol] 9.4 mg/dL 7.6-11.0 [facility] Serum or plasma urea nitroge n measurement (mass/volume)Ordered By: Norris Grigsby on 11-25-2024 Urea nitrogen [Mass/Vol] 22 mg/dL High 4-19 [facility] Sodium levelOrdered By: Norris Grigsby on 11-25-2024 Sodium [Moles/Vol] 138 mmol/L 133-145 [facility] Total proteinOrdered By: Benton Grigsby on 11-25-2024 Protein [Mass/Vol] 7.3 g/dL 5.9-8.4 [facility] White blood cell (WBC) count Ordered By: Norris Grigsby on 11-25-2024 WBC (Bld) [#/Vol] 7.7 10*3/uL 4.4-11.0 [facility] Anion gap in Serum or Plasma Ordered By: Norris Grigsby on 11-06-2024 Anion gap [Moles/Vol] 12 mmol/L 09-26 [facility] BUN/creatinine ratioOrdered By: Norris Grigsby on 11-06-2024 Urea nitrogen/Creatinine [Mass ratio] 15.1 mg/mg 03-03 [facility] Basic Metabolic Profile (BMP )on 11-06-2024 BUN/CRE 15.1 RATIO Normal 03-03 [facility] Comment on above: Performed By: #### L 500.2500 ####[facility] [address] [place], [address] Calcium [Mass/Vol] 9.5 mg/dL Normal 7.6-11.0 [facility] Comment on above: Performed By: #### L 500.2500 ####[facility] [address] [place], [address] Chloride [Moles/Vol] 102 mmol/L Normal 98-108 [facility] Comment on above: Performed By: #### L 500.2500 ####[facility] [address] [place], [address] CO2 [Moles/Vol] 22.4 mmol/L Normal 21.0-32.0 [facility] Comment on above: Performed By: #### L 500.2500 ####[facility] [address] [place], [address] Creatinine [Mass/Vol] 1.52 mg/dL High 0.70-1.20 [facility] Comment on above: Performed By: #### L 500.2500 ####[facility] [address] [place], [address] GAP 12 Normal 09-26 [facility] Comment on above: Performed By: #### L 500.2500 ####[facility] [address] [place], [address] GFR/1.73 sq M.predicted among non-blacks MDRD (S/P/Bld) [Vol rate/Area] 49 mL/min/{1.73_m2} Low >60 [facility] Comment on above: Result Comment: mL/m in/1.73m2 CKD-EPI Creatinine Equation (2020) Performed By: #### L 500.2500 ####[facility] [address] [place], [address] Glucose [Mass/Vol] 122 mg/dL High 70-99 [facility] Comment on above: Performed By: #### L 500.2500 ####[facility] [address] [place], [address] Potassium [Moles/Vol] 4.3 mmol/L Normal 3.3-5.1 [facility] Comment on above: Performed By: #### L 500.2500 ####[facility] [address] [place], [address] Sodium [Moles/Vol] 137 mmol/L Normal 133-145 [facility] Comment on above: Performed By: #### L 500.2500 ####[facility] [address] [place], [address] Urea nitrogen [Mass/Vol] 23 mg/dL High 4-19 [facility] Comment on above: Performed By: #### L 500.2500 ####[facility] [address] [place], [address] Carbon dioxide, total [Moles /volume] in Central venous bloodOrdered By: Norris Grigsby on 11-06-2024 CO2 [Moles/Vol] 22.4 mmol/L 21.0-32.0 [facility] Chloride assayOrdered By: Manisha Grigsby on 11-06-2024 Chloride [Moles/Vol] 102 mmol/L 98-108 [facility] Glomerular filtration rate ( GFR) estimation/1.73 sq m using serum, plasma, or whole bOrdered By: Norris Grigsby on 11-06-2024 GFR/1.73 sq M.predicted among non-blacks MDRD (S/P/Bld) [Vol rate/Area] 49 mL/min/{1.73_m2} Low >60 [facility] Comment on above: mL/min/1.73m2 CKD-EP I Creatinine Equation (2020) Potassium measurement (mass/ volume)Ordered By: Norris Grigsby on 11-06-2024 Potassium (Unsp spec) [Mass/Vol] 4.3 mmol/L 3.3-5.1 [facility] Serum creatinine measurement (mass/volume)Ordered By: Norris Grigsby on 11-06-2024 Creatinine [Mass/Vol] 1.52 mg/dL High 0.70-1.20 [facility] Serum glucose measurement (m ass/volume)Ordered By: Norris Grigsby on 11-06-2024 Glucose [Mass/Vol] 122 mg/dL High 70-99 [facility] Serum or plasma calcium lyly urement (mass/volume)Ordered By: Norris Grigsby on 11-06-2024 Calcium [Mass/Vol] 9.5 mg/dL 7.6-11.0 [facility] Serum or plasma urea nitroge n measurement (mass/volume)Ordered By: Norris Grigsby on 11-06-2024 Urea nitrogen [Mass/Vol] 23 mg/dL High 4-19 [facility] Sodium levelOrdered By: Norris Grigsby on 11-06-2024 Sodium [Moles/Vol] 137 mmol/L 133-145 [facility] Anion gap in Serum or Plasma Ordered By: Norris Grigsby on 10-15-2024 Anion gap [Moles/Vol] 11 mmol/L 5-15 [facility] BUN/creatinine ratioOrdered By: Norris Grigsby on 10-15-2024 Urea nitrogen/Creatinine [Mass ratio] 14.9 mg/mg 10- [facility] Basic Metabolic Profile (BMP )on 10-15-2024 BUN/CRE 14.9 RATIO Normal 03-03 [facility] Comment on above: Performed By: #### L 500.2500 ####[facility] [address] [place], [address] Calcium [Mass/Vol] 9.7 mg/dL Normal 7.6-11.0 [facility] Comment on above: Performed By: #### L 500.2500 ####[facility] [address] [place], [address] Chloride [Moles/Vol] 102 mmol/L Normal 98-108 [facility] Comment on above: Performed By: #### L 500.2500 ####[facility] [address] [place], [address] CO2 [Moles/Vol] 26.0 mmol/L Normal 21.0-32.0 [facility] Comment on above: Performed By: #### L 500.2500 ####[facility] [address] [place], [address] Creatinine [Mass/Vol] 1.24 mg/dL High 0.70-1.20 [facility] Comment on above: Performed By: #### L 500.2500 ####[facility] [address] [place], [address] GAP 11 Normal 5-15 [facility] Comment on above: Performed By: #### L 500.2500 ####[facility] [address] [place], [address] GFR/1.73 sq M.predicted among non-blacks MDRD (S/P/Bld) [Vol rate/Area] 62 mL/min/{1.73_m2} Normal >60 [facility] Comment on above: Result Comment: mL/m in/1.73m2 CKD-EPI Creatinine Equation (2020) Performed By: #### L 500.2500 ####[facility] [address] [place], [address] Glucose [Mass/Vol] 114 mg/dL High 70-99 [facility] Comment on above: Performed By: #### L 500.2500 ####[facility] [address] [place], [address] Potassium [Moles/Vol] 4.0 mmol/L Normal 3.3-5.1 [facility] Comment on above: Performed By: #### L 500.2500 ####[facility] [address] [place], [address] Sodium [Moles/Vol] 139 mmol/L Normal 133-145 [facility] Comment on above: Performed By: #### L 500.2500 ####[facility] [address] [place], [address] Urea nitrogen [Mass/Vol] 19 mg/dL Normal 4-19 [facility] Comment on above: Performed By: #### L 500.2500 ####[facility] [address] [place], [address] Carbon dioxide, total [Moles /volume] in Central venous bloodOrdered By: Norris Grigsby on 10-15-2024 CO2 [Moles/Vol] 26.0 mmol/L 21.0-32.0 [facility] Cardiology Visit Reporton Cardiology Visit Report [facility] [address] [place], [place] [address] OFFICE VISIT Date of Service: 10/15/24 MR#: [id number] Acct: [id number] Name: SEVERIANO HERNANDEZ Rep #: [id number] 2 : 1955 Provider: PHILIP sims Age/Sex: 69/M Location: [facility] Status: Signed HPI HPI History of Present Illness Details: SEVERIANO HERNANDEZ, is a 69 M who presents to the office today for a cardiovascular outpatient follow-up. He has a history of coronary artery disease status post three-vessel bypass surgery in [address] Dillard at [facility] with REYES to distal of the LAD, SVG to obtuse marginal, and SVG to PDA. He also underwent PTCA/ERROL to RCA x2 in October 2017 and PTCA/ERROL to mid RAMUS on 07/27/2018. He also has a history of hypertension and hyperlipidemia. He was last in the office in 05/2022. Patient presented to [facility] on 02/20/2024 with multiple complaints. He had blood work done by his primary care doctor and it did demonstrate an elevated troponin. He also had ascites and pedal edema. He was also noted to be tachycardic in the emergency room and it was felt that it was a 2-1 atrial flutter. Patient did undergo an echocardiogram which demonstrated an ejection fraction of 10%, mildly dilated LV with moderately severe mitral insufficiency. Patient was started on carvedilol, Jardiance, Lasix, Entresto however this may need to have been held due to hypotension. He did undergo a stress test on an outpatient basis, this was abnormal with mild anterior lateral and apical ischemia with a dilated cardiomyopathy. He did undergo a diagnostic heart catheterization on 03/08/2024 which demonstrated severe disease with a patent REYES to the LAD, SVG graft obtuse marginal occluded, SVG to the right coronary and [place] coronary artery with a dilated cardiomyopathy. Control of his atrial fibrillation was recommended along with guided medical therapy for his cardiomyopathy and then to consider a prophylactic ICD. Repeat echo in 05/2024 demonstrated and EF of 10%. He denies chest, arm, jaw, or neck discomfort. He denies palpitations. He denies bilateral lower extremity edema. He denies claudication. He denies shortness of breath with activity, shortness of breath at rest, orthopnea, or PND. He denies chronic cough. He denies significant, sudden weight gain. He states dizziness, weakness, and blurry vision since increasing spironolactone. He denies lightheadedness, near-syncope, or syncope. He denies blood in urine, blood in stool, or epistaxis. He denies fever with chills. He denies myalgia. He states weakness and fatigue. His exercise level has remained stable. Intake Vital Signs 06/25/24 09:32 10/08/24 09:52 10/15/24 08:18 Height 6 ft 6 ft 6 ft Weight: 182 lb 183 lb BMI 24.7 24.8 BP 138/79 H 147/77 H Blood Pressure Location Rt brachial Lt brachial Position Sitting Sitting Respiration 16 Pulse 46 L 80 Pulse Source NIBP Pulse Oximetry (%) 94 Oxygen Delivery Method room air Intake Visit Reasons: 4 M FU Back Grinder Required: No Is patient in pain?: No Allergies pravastatin sodium (From Pravachol) Allergy (Verified 10/15/24 08:20) Unknown carvedilol (From Coreg) Adverse Reaction (Intermediate, Verified 10/15/24 08:20) diarrhea atorvastatin calcium (From Lipitor) Adverse Reaction (Verified 10/15/24 08:20) Pain in joints gemfibrozil Adverse Reaction (Verified 10/15/24 08:20) myalgia Medications ???Medication ???Instructions ???Recorded ???Confirmed ???Type aspirin 81 mg tablet,delayed 81 mg PO DAILY heart health 10/15/24 History release (Adult Aspirin Regimen) dapagliflozin propanediol 10 mg 10 mg PO QAM #60 tabs 03/08/2408/06 Rx tablet furosemide 40 mg tablet 40 mg PO .COMPLEX #180 tabs 10/15/24 Rx carvedilol 12.5 mg tablet 6.25 mg (1/2 x 12.5 mg) PO BID #90 05/28/24 10/15/24 Rx tabs lactulose 10 gram/15 mL (15 mL) 20 g (30 mL) PO BID 30 days #1,800 06/11/24 10/15/24 Rx oral solution mL apixaban 5 mg tablet (Eliquis) 5 mg PO .COMPLEX #180 tabs 5 10/15/24 Rx spironolactone 50 mg tablet 50 mg PO DAILY 1 month #30 tabs 10/15/24 Rx sacubitril 24 mg-valsartan 26 mg 1 tab PO BID #60 tabs 10/15/2408/06 Rx tablet (Entresto) tramadol 50 mg tablet 50 mg PO QDAY PRN 10/15/24 5 History Ejection fraction %: 25 Have you fallen in the past year?: Yes [facility] Medical History Wears glasses Wrist injury Loss of consciousness Injury of back Dietary restriction Shortness of breath on exertion History of pain when walking History of edema History of echocardiogram History of stress test Cardiology follow-up encounter History of atrial fibrillation Non-smoker (more content not included)... Normal [facility] Chloride assayOrdered By: Manisha Grigsby on 10-15-2024 Chloride [Moles/Vol] 102 mmol/L 98-108 [facility] Glomerular filtration rate ( GFR) estimation/1.73 sq m using serum, plasma, or whole bOrdered By: Norris Grigsby on 10-15-2024 GFR/1.73 sq M.predicted among non-blacks MDRD (S/P/Bld) [Vol rate/Area] 62 mL/min/{1.73_m2} >60 [facility] Comment on above: mL/min/1.73m2 CKD-EP I Creatinine Equation (2020) Potassium measurement (mass/ volume)Ordered By: Norris Grigsby on 10-15-2024 Potassium (Unsp spec) [Mass/Vol] 4.0 mmol/L 3.3-5.1 [facility] Serum creatinine measurement (mass/volume)Ordered By: Norris Grigsby on 10-15-2024 Creatinine [Mass/Vol] 1.24 mg/dL High 0.70-1.20 [facility] Serum glucose measurement (m ass/volume)Ordered By: Norris Grigsby on 10-15-2024 Glucose [Mass/Vol] 114 mg/dL High 70-99 [facility] Serum or plasma calcium lyly urement (mass/volume)Ordered By: Norris Grigsby on 10-15-2024 Calcium [Mass/Vol] 9.7 mg/dL 7.6-11.0 [facility] Serum or plasma urea nitroge n measurement (mass/volume)Ordered By: Norris Grigsby on 10-15-2024 Urea nitrogen [Mass/Vol] 19 mg/dL 4-19 [facility] Sodium levelOrdered By: Norris Grigsby on 10-15-2024 Sodium [Moles/Vol] 139 mmol/L 133-145 [facility] Calculated very low density lipoprotein (VLDL) cholesterol measurementOrdered By: Prieto Gong on 10-10-2024 Calculated very low density lipoprotein (VLDL) cholesterol measurement 26 mg/dL 5-40 [facility] LDL calc ser/plasOrdered By: Prieto Gong on 10-10-2024 Cholesterol in LDL [Mass/Vol] 107 mg/dL [facility] Comment on above: Jfafafuiov=839-273 m g/dL & Higher Mibw=202 mg/dL or greater Lipid Profileon 10-10-2024 CHOL:HDL 3.46 Normal [facility] Comment on above: Order Comment: ADD O NTO BLOOD FROM 10/08/24 Performed By: #### L 500.4100 ####[facility] [address] [place], [place], [address](266) Cholesterol [Mass/Vol] 187 mg/dL Normal <=[address] [facility] Comment on above: Order Comment: ADD O NTO BLOOD FROM 10/08/24 Result Comment: Chol esterol level, Desirable <200 mg/dL Borderline high cholesterol 200-239 mg/dL High cholesterol >=240 mg/dL Recommendations of the NCEP Adult Treatment Panel for the following risk-cutoff thresholds for the [place] population. Performed By: #### L 500.4100 ####[facility] [address] [place], [place], [id number] Cholesterol in HDL [Mass/Vol] 54 mg/dL Normal [facility] Comment on above: Order Comment: ADD O NTO BLOOD FROM 10/08/24 Result Comment: [place] onal Cholesterol Education Program (NCEP) guidelines: <40 mg/dL: Low HDL-cholesterol (major risk factor for CHD) >= 60 mg/dL: High HDL-cholesterol (negative risk factor for CHD) HDL-cholesterol is affected by a number of factors, e.g. smoking, exercise, hormones, sex and age. Performed By: #### L 500.4100 ####[facility] [address] [place], [address] Cholesterol in LDL [Mass/Vol] 107 mg/dL Normal [facility] Comment on above: Order Comment: ADD O NTO BLOOD FROM 10/08/24 Result Comment: Bord tamnzr=668-615 mg/dL Higher Tqzr=424 mg/dL or greater Performed By: #### L 500.4100 ####[facility] [address] [place], [place], [address] Cholesterol in VLDL [Mass/Vol] 26 mg/dL Normal 5-40 [facility] Comment on above: Order Comment: ADD O NTO BLOOD FROM 10/08/24 Performed By: #### L 500.4100 ####[facility] [address] [place], [place], [address] Triglyceride [Mass/Vol] 129 mg/dL Normal [facility] Comment on above: Order Comment: ADD O NTO BLOOD FROM 10/08/24 Result Comment: The drugs N-Acetylcysteine and Metamizole may falsely depress this assay. Normal range: <150 mg/dL Borderline High: 150-199 mg/dL High: 200-499 mg/dL Very High: >500 mg/dL Performed By: #### L 500.4100 ####[facility] [address] [place], [place], [address] Screening total cholesterol/ high density lipoprotein (HDL) cholesterol ratioOrdered By: Prieto Gong on 10-10-2024 Cholesterol.total/Chol esterol in HDL [Mass ratio] 3.46 {ratio} [facility] Serum or plasma cholesterol in HDL measurement (mass/volume)Ordered By: Prieto Gong on 10-10-2024 Cholesterol in HDL [Mass/Vol] 54 mg/dL >40 [facility] Comment on above: National Cholesterol Education Program (NCEP) guidelines:<40 mg/dL: Low HDL-cholesterol (major risk factor for CHD)>= 60 mg/dL: High HDL-cholesterol (negative risk factor for CHD)HDL-cholesterol is affected by a number of factors, e.g. smoking, exercise, hormones, sex and age. Serum or plasma cholesterol measurement (mass/volume)Ordered By: Prieto Gong on 10-10-2024 Cholesterol [Mass/Vol] 187 mg/dL <[address] [facility] Comment on above: Cholesterol level, D esirable <200 mg/dLBorderline high cholesterol 200-239 mg/dLHigh cholesterol >=240 mg/dLRecommendations of the NCEP Adult Treatment Panel for the following risk-cutoff thresholds for the [place] population. Triglycerides measurementOrd ered By: Prieto Gong on 10-10-2024 Triglyceride [Mass/Vol] 129 mg/dL <199 [facility] Comment on above: The drugs N-Acetylcy steine and Metamizole may falsely depress this assay. Normal range: <150 mg/dLBorderline High: 150-199 mg/dLHigh: 200-499 mg/dLVery High: >500 mg/dL Absolute lymphocyte countOrd ered By: Prieto Gong on 10-08-2024 Lymphocytes Auto (Unsp spec) [#/Vol] 1.45 10*3/uL 0.83-4.51 [facility] Absolute neutrophil countOrd ered By: Prieto Gong on 10-08-2024 Neutrophils (Bld) [#/Vol] 5.4 10*3/uL 2.0-7.7 [facility] Anion gap in Serum or Plasma Ordered By: Prieto Gong on 10-08-2024 Anion gap [Moles/Vol] 13 mmol/L 5-15 [facility] Automated lymphocyte count a s percentage of total leukocytesOrdered By: Prieto Gong on 10-08-2024 Lymphocytes/100 WBC Auto (Unsp spec) 18.4 % Low 19-41 [facility] BUN/creatinine ratioOrdered By: Prieto Gong on 10-08-2024 Urea nitrogen/Creatinine [Mass ratio] 11.6 mg/mg 10-20 [facility] Basophil percentageOrdered B y: Prieto Gong on 10-08-2024 Basophils/100 WBC (Bld) 1.0 % 0-1 [facility] Bilirubin directOrdered By: Prieto Gong on 10-08-2024 Bilirubin.direct [Mass/Vol] 0.80 mg/dL High 0.00-0.30 [facility] Bilirubin, Directon 10-09-19 25 Bilirubin.direct [Mass/Vol] 0.80 mg/dL High 0.00-0.30 [facility] Comment on above: Performed By: #### L 500.4050, L501.2300, L501.4700, L501.5200, L100.0100, L300.3900 ####[facility] [address] [place], [address] Bilirubin, totalOrdered By: Prieto Gong on 10-08-2024 Bilirubin [Mass/Vol] 2.40 mg/dL High 0.00-1.30 [facility] CBC W/Diff, Automatedon 09-13 Absolute Lymph 1.45 X10 3/uL Normal 0.83-4.51 [facility] Comment on above: Performed By: #### L 500.4050, L501.2300, L501.4700, L501.5200, L100.0100, L300.3900 ####[facility] [address] [place], [address] Absolute Neut 5.4 X10 3/uL Normal 2.0-7.7 [facility] Comment on above: Performed By: #### L 500.4050, L501.2300, L501.4700, L501.5200, L100.0100, L300.3900 ####[facility] [address] [place], [address] Basophils/100 WBC (Bld) 1.0 % Normal 0-1 [facility] Comment on above: Performed By: #### L 500.4050, L501.2300, L501.4700, L501.5200, L100.0100, L300.3900 ####[facility] [address] [place], [address] Eosinophils/100 WBC (Bld) 4.2 % Normal 0-5 [facility] Comment on above: Performed By: #### L 500.4050, L501.2300, L501.4700, L501.5200, L100.0100, L300.3900 ####[facility] [address] [place], [address] Erythrocyte distribution width (RBC) [Ratio] 13.4 % Normal 11.6-14.6 [facility] Comment on above: Performed By: #### L 500.4050, L501.2300, L501.4700, L501.5200, L100.0100, L300.3900 ####[facility] [address] [place], [address] Hematocrit (Bld) [Volume fraction] 48.4 % Normal 40-54 [facility] Comment on above: Performed By: #### L 500.4050, L501.2300, L501.4700, L501.5200, L100.0100, L300.3900 ####[facility] [address] [place], [address] Hemoglobin (Bld) [Mass/Vol] 16.5 g/dL Normal 13.0-16.5 [facility] Comment on above: Performed By: #### L 500.4050, L501.2300, L501.4700, L501.5200, L100.0100, L300.3900 ####[facility] [address] [place], [address] IG% 0.300 Normal 0.0-0.9 [facility] Comment on above: Result Comment: IG% - Immature Granulocytes (promyelocytes, myelocytes and metamyelocytes) > 1% indicates that a LEFT SHIFT is Present. Performed By: #### L 500.4050, L501.2300, L501.4700, L501.5200, L100.0100, L300.3900 ####[facility] [address] [place], [address] Lymphocytes/100 WBC (Bld) 18.4 % Low 19-41 [facility] Comment on above: Performed By: #### L 500.4050, L501.2300, L501.4700, L501.5200, L100.0100, L300.3900 ####[facility] [address] [place], [address] MCH (RBC) [Entitic mass] 31.4 pg Normal 27.0-32.0 [facility] Comment on above: Performed By: #### L 500.4050, L501.2300, L501.4700, L501.5200, L100.0100, L300.3900 ####[facility] [address] [place], [address] MCHC (RBC) [Mass/Vol] 34.1 g/dL Normal 32-36 [facility] Comment on above: Performed By: #### L 500.4050, L501.2300, L501.4700, L501.5200, L100.0100, L300.3900 ####[facility] [address] [place], [address] MCV (RBC) [Entitic vol] 92.0 fL Normal 80-94 [facility] Comment on above: Performed By: #### L 500.4050, L501.2300, L501.4700, L501.5200, L100.0100, L300.3900 ####[facility] [address] [place], [address] Monocytes/100 WBC (Bld) 8.5 % Normal 0-10 [facility] Comment on above: Performed By: #### L 500.4050, L501.2300, L501.4700, L501.5200, L100.0100, L300.3900 ####[facility] [address] [place], [address] Neutrophils/100 WBC (Bld) 67.6 % Normal 47-70 [facility] Comment on above: Performed By: #### L 500.4050, L501.2300, L501.4700, L501.5200, L100.0100, L300.3900 ####[facility] [address] [place], [address] Nucleated RBC (Bld) [#/Vol] 0 10*3/uL Normal 0-5 [facility] Comment on above: Performed By: #### L 500.4050, L501.2300, L501.4700, L501.5200, L100.0100, L300.3900 ####[facility] [address] [place], [address] Platelet mean volume (Bld) [Entitic vol] 8.7 fL Normal 6.2-12.0 [facility] Comment on above: Performed By: #### L 500.4050, L501.2300, L501.4700, L501.5200, L100.0100, L300.3900 ####[facility] [address] [place], [address] Platelets (Bld) [#/Vol] 269 10*3/uL Normal 150-450 [facility] Comment on above: Performed By: #### L 500.4050, L501.2300, L501.4700, L501.5200, L100.0100, L300.3900 ####[facility] [address] [place], [address] RBC (Bld) [#/Vol] 5.26 10*6/uL Normal 4.6-6.2 [facility] Comment on above: Performed By: #### L 500.4050, L501.2300, L501.4700, L501.5200, L100.0100, L300.3900 ####[facility] [address] [place], [address] RDW SD 45.8 fl High 35.1-43.9 [facility] Comment on above: Performed By: #### L 500.4050, L501.2300, L501.4700, L501.5200, L100.0100, L300.3900 ####[facility] [address] [place], [address] WBC (Bld) [#/Vol] 7.9 10*3/uL Normal 4.4-11.0 [facility] Comment on above: Performed By: #### L 500.4050, L501.2300, L501.4700, L501.5200, L100.0100, L300.3900 ####[facility] [address] [place], [address] Carbon dioxide, total [Moles /volume] in Central venous bloodOrdered By: Prieto Gong on 10-08-2024 CO2 [Moles/Vol] 26.0 mmol/L 21.0-32.0 [facility] Chloride assayOrdered By: Kate Gong on 10-08-2024 Chloride [Moles/Vol] 101 mmol/L 98-108 [facility] Comprehensive Metabolic Prof ilon 10-08-2024 Albumin [Mass/Vol] 4.3 g/dL Normal 3.4-4.8 [facility] Comment on above: Performed By: #### L 500.4050, L501.2300, L501.4700, L501.5200, L100.0100, L300.3900 ####[facility] [address] [place], [address] Albumin/Globulin [Mass ratio] 1.3 {ratio} Normal 0.9-2.4 [facility] Comment on above: Performed By: #### L 500.4050, L501.2300, L501.4700, L501.5200, L100.0100, L300.3900 ####[facility] [address] [place], [address] ALK PHOS 92 U/L Normal 40-129 [facility] Comment on above: Performed By: #### L 500.4050, L501.2300, L501.4700, L501.5200, L100.0100, L300.3900 ####[facility] [address] [place], [address] ALT [Catalytic activity/Vol] 14 U/L Normal <=46 [facility] Comment on above: Performed By: #### L 500.4050, L501.2300, L501.4700, L501.5200, L100.0100, L300.3900 ####[facility] [address] [place], [address] AST [Catalytic activity/Vol] 23 U/L Normal <=37 [facility] Comment on above: Performed By: #### L 500.4050, L501.2300, L501.4700, L501.5200, L100.0100, L300.3900 ####[facility] [address] [place], [address] Bilirubin [Mass/Vol] 2.40 mg/dL High 0.00-1.30 [facility] Comment on above: Performed By: #### L 500.4050, L501.2300, L501.4700, L501.5200, L100.0100, L300.3900 ####[facility] [address] [place], [address] BUN/CRE 11.6 RATIO Normal 10-20 [facility] Comment on above: Performed By: #### L 500.4050, L501.2300, L501.4700, L501.5200, L100.0100, L300.3900 ####[facility] [address] [place], [address] Calcium [Mass/Vol] 9.6 mg/dL Normal 7.6-11.0 [facility] Comment on above: Performed By: #### L 500.4050, L501.2300, L501.4700, L501.5200, L100.0100, L300.3900 ####[facility] [address] [place], [address] Chloride [Moles/Vol] 101 mmol/L Normal 98-108 [facility] Comment on above: Performed By: #### L 500.4050, L501.2300, L501.4700, L501.5200, L100.0100, L300.3900 ####[facility] [address] [place], [address] CO2 [Moles/Vol] 26.0 mmol/L Normal 21.0-32.0 [facility] Comment on above: Performed By: #### L 500.4050, L501.2300, L501.4700, L501.5200, L100.0100, L300.3900 ####[facility] [address] [place], [place], [address] Creatinine [Mass/Vol] 1.19 mg/dL Normal 0.70-1.20 [facility] Comment on above: Performed By: #### L 500.4050, L501.2300, L501.4700, L501.5200, L100.0100, L300.3900 ####[facility] [address] [place], [place], [address] GAP 13 Normal 5-15 [facility] Comment on above: Performed By: #### L 500.4050, L501.2300, L501.4700, L501.5200, L100.0100, L300.3900 ####[facility] [address] [place], [place], [address] GFR/1.73 sq M.predicted among non-blacks MDRD (S/P/Bld) [Vol rate/Area] 65 mL/min/{1.73_m2} Normal >60 [facility] Comment on above: Result Comment: mL/m in/1.73m2 CKD-EPI Creatinine Equation (2020) Performed By: #### L 500.4050, L501.2300, L501.4700, L501.5200, L100.0100, L300.3900 ####[facility] [address] [place], [address] Globulin (S) [Mass/Vol] 3.3 g/dL Normal 2.2-4.2 [facility] Comment on above: Performed By: #### L 500.4050, L501.2300, L501.4700, L501.5200, L100.0100, L300.3900 ####[facility] [address] [place], [address] Glucose [Mass/Vol] 134 mg/dL High 70-99 [facility] Comment on above: Performed By: #### L 500.4050, L501.2300, L501.4700, L501.5200, L100.0100, L300.3900 ####[facility] [address] [place], [address] Potassium [Moles/Vol] 3.6 mmol/L Normal 3.3-5.1 [facility] Comment on above: Performed By: #### L 500.4050, L501.2300, L501.4700, L501.5200, L100.0100, L300.3900 ####[facility] [address] [place], [address] Sodium [Moles/Vol] 140 mmol/L Normal 133-145 [facility] Comment on above: Performed By: #### L 500.4050, L501.2300, L501.4700, L501.5200, L100.0100, L300.3900 ####[facility] [address] [place], [address] T PROT 7.7 g/dL Normal 5.9-8.4 [facility] Comment on above: Performed By: #### L 500.4050, L501.2300, L501.4700, L501.5200, L100.0100, L300.3900 ####[facility] [address] [place], [address] Urea nitrogen [Mass/Vol] 14 mg/dL Normal 4-19 [facility] Comment on above: Performed By: #### L 500.4050, L501.2300, L501.4700, L501.5200, L100.0100, L300.3900 ####[facility] [address] [place], [address] Eosinophil percentageOrdered By: Prieto Gong on 10-08-2024 Eosinophils/100 WBC (Bld) 4.2 % 0-5 [facility] Erythrocyte distribution wid th ratioOrdered By: Prieto Gong on 10-08-2024 Erythrocyte distribution width (RBC) [Ratio] 13.4 % 11.6-14.6 [facility] Erythrocyte distribution wid th standard deviationOrdered By: Prieto Gong on 10-08-2024 Erythrocyte distribution width (RBC) [Ratio] 45.8 fl High 35.1-43.9 [facility] Gastroenterology Visit Repor ton 10-08-2024 Gastroenterology Visit Report [facility]astroenterology [address] [place] [address] OFFICE VISIT Date of Service: 10/08/24 MR#: [id number] Acct: [id number] Name: SEVERIANO HERNANDEZ Rep #: [id number] 4 : 1955 Provider: Dr. Prieto suarez MD Age/Sex: 69/M Location: [facility] [place] Status: Signed with Addenda ADDENDUM by Dr. Prieto Gong MD on 10/08/24 at 1306 HPI Details: SEVERIANO HERNANDEZ, is a 69 M who presents to the office today for Addendum K3.6 spironolactone dose increased to 50 mg daily. MELD sodium score 13 as per 10/08/2024 labs. 10/08/24 1306 Date Prieto Gong MD cc: Dr. Cliff Taylor MD * Signed Intake Vital Signs 06/25/24 09:32 10/08/24 09:52 Height 6 ft 6 ft Weight: 182 lb BMI 24.7 BP 138/79 H Blood Pressure Location Rt brachial Position Sitting Pulse 46 L Pulse Oximetry (%) 94 Oxygen Delivery Method room air Intake Visit Reasons: 3 M FU Chief Complaint: Cirrhosis Allergies pravastatin sodium (From Pravachol) Allergy (Verified 10/08/24 09:26) Unknown carvedilol (From Coreg) Adverse Reaction (Intermediate, Verified 10/08/24 09:26) diarrhea atorvastatin calcium (From Lipitor) Adverse Reaction (Verified 10/08/24 09:26) Pain in joints gemfibrozil Adverse Reaction (Verified 10/08/24 09:26) myalgia Medications ???Medication ???Instructions ???Recorded ???Confirmed ???Type aspirin 81 mg tablet,delayed 81 mg PO DAILY heart health 10/08/24 History release (Adult Aspirin Regimen) dapagliflozin propanediol 10 mg 10 mg PO QAM #60 tabs 03/08/24 Rx tablet furosemide 40 mg tablet 40 mg PO .COMPLEX #180 tabs 10/08/24 Rx carvedilol 12.5 mg tablet 6.25 mg (1/2 x 12.5 mg) PO BID #90 05/28/24 10/08/24 Rx tabs lactulose 10 gram/15 mL (15 mL) 20 g (30 mL) PO BID 30 days #1,800 06/11/24 10/08/24 Rx oral solution mL spironolactone 25 mg tablet 37.5 mg (1.5 x 25 mg) PO QDAY 3 10/08/24 Rx months #135 tabs ursodiol 500 mg tablet 500 mg PO BID 1 month #60 tabs 10/08/24 Rx apixaban 5 mg tablet (Eliquis) 5 mg PO .COMPLEX #180 tabs 5 10/08/24 Rx Have you fallen in the past year?: No PFSH Medical History Wears glasses Wrist injury Loss of consciousness Injury of back Dietary restriction Shortness of breath on exertion History of pain when walking History of edema History of echocardiogram History of stress test Cardiology follow-up encounter History of atrial fibrillation Non-smoker Coronary artery disease Hypertension Pure hypercholesterolemia Essential hypertension Atherosclerosis of coronary artery bypass graft without angina pectoris Non-ST elevation (NSTEMI) myocardial infarction White coat syndrome with hypertension RBBB Premature ventricular contraction Nonrheumatic aortic valve insufficiency Atherosclerosis of coronary artery of [place] heart without angina pectoris Surgical History History of cardiac catheterization Hx of colonoscopy History of coronary artery stent placement History of esophagogastroduodenoscopy (EGD) ( 2014) H/O coronary artery bypass surgery ( 08/12/15) Family History Mother CAD (coronary artery disease) Hypertension Grandmother Myocardial infarction Social History Smoking Status: Never smoker alcohol intake: current details: rare substance use type: does not use HPI HPI Chief Complaint: Cirrhosis Details: SEVERIANO HERNANDEZ, is a 69 M who presents to the office today for follow up. 02.21.24- Liver bx, Liver parenchymal tissue with increased portal, periportal fibrosis, bridging fibrosis and changes suggestive of early cirrhosis OV 03.26.24- hospital f/u. 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 He underwent liver biopsy which showed early cirrhosis. He had paracentesis with removal of 8 liters. MELD score of 15. Since then he has underwent cardiac catheterization and had some issues with carvedilol which sent him back to hospital. EGD 1.07.09- Normal esophagus, nodular mucosa in the duodenal bulb. Path: Fragments of duodenal mucosa with moderate chronic inflammation and extensive gastric metaplasia OV 06.25.24- Pt well since last visit. States he is having some weakness but denies fatigue, sob, swelling, dizziness or confusion. Is not having abdominal pain. BM are normal once a day. No other concerns. Early cirrhosis diagnosed with liver biopsy. US abd/ elastography 07.10.24- Liver measure (more content not included)... Normal [facility] Glomerular filtration rate ( GFR) estimation/1.73 sq m using serum, plasma, or whole bOrdered By: Prieto Gong on 10-08-2024 GFR/1.73 sq M.predicted among non-blacks MDRD (S/P/Bld) [Vol rate/Area] 65 mL/min/{1.73_m2} >60 [facility] Comment on above: mL/min/1.73m2 CKD-EP I Creatinine Equation (2020) Hematocrit Auto (Bld) [Volum e fraction]Ordered By: Prieto Gong on 10-08-2024 Hematocrit (Bld) [Volume fraction] 48.4 % 40-54 [facility] Hemoglobin measurementOrdere d By: Prieto Gong on 10-08-2024 Hemoglobin (Bld) [Mass/Vol] 16.5 g/dL 13.0-16.5 [facility] Immature granulocytes/100 WB C Auto (Bld)Ordered By: Prieto Gong on 10-08-2024 Immature granulocytes/100 WBC (Bld) 0.300 % 0.0-0.9 [facility] Comment on above: IG% - Immature Granu locytes (promyelocytes, myelocytes and metamyelocytes) > 1% indicates that a LEFT SHIFT is Present. International normalized rat io (INR) calculationOrdered By: Prieto Gong on 10-08-2024 INR Coag (Bld) [Relative time] 1.2 {INR} [facility] Laboratory - Chemistry and C hemistry - challengeOrdered By: Prietodarrion Gong on 10-08-2024 AST [Catalytic activity/Vol] 23 U/L <38 [facility] MCV (mean corpuscular volume ) determinationOrdered By: Prieto Gong on 10-08-2024 MCV (RBC) [Entitic vol] 92.0 fL 80-94 [facility] Magnesiumon 10-08-2024 Magnesium [Mass/Vol] 2.4 mg/dL High 1.5-2.2 [facility] Comment on above: Performed By: #### L 500.4050, L501.2300, L501.4700, L501.5200, L100.0100, L300.3900 ####[facility] [address] [place], [place], [id number] Magnesium measurement (mass/ volume)Ordered By: Prieto Gong on 10-08-2024 Magnesium (Unsp spec) [Mass/Vol] 2.4 mg/dL High 1.5-2.2 [facility] Mean corpuscular hemoglobin (MCH) determinationOrdered By: Prieto Gong on 10-08-2024 MCH (RBC) [Entitic mass] 31.4 pg 27.0-32.0 [facility] Mean corpuscular hemoglobin concentration (MCHC) determinationOrdered By: Prieto Gong on 10-08-2024 MCHC (RBC) [Mass/Vol] 34.1 g/dL 32-36 [facility] Mean platelet volume determi nationOrdered By: Prieto Gong on 10-08-2024 Platelet mean volume (Bld) [Entitic vol] 8.7 fL 6.2-12.0 [facility] Monocyte percentageOrdered B y: Prieto Gong on 10-08-2024 Monocytes/100 WBC (Bld) 8.5 % 0-10 [facility] Neutrophil percentageOrdered By: Prieto Gong on 10-08-2024 Neutrophils/100 WBC (Bld) 67.6 % 47-70 [facility] Nucleated red blood cell per centageOrdered By: Prieto Gong on 10-08-2024 Nucleated RBC/100 WBC (Bld) [Ratio] 0 % 0-5 [facility] Phosphoruson 10-08-2024 Phosphate [Mass/Vol] 3.5 mg/dL Normal 2.7-4.5 [facility] Comment on above: Performed By: #### L 500.4050, L501.2300, L501.4700, L501.5200, L100.0100, L300.3900 ####[facility] [address] [place], [address] Platelet countOrdered By: Kate Gong on 10-08-2024 Platelets (Bld) [#/Vol] 269 10*3/uL 150-450 [facility] Potassium measurement (mass/ volume)Ordered By: Prieto Gong on 10-08-2024 Potassium (Unsp spec) [Mass/Vol] 3.6 mmol/L 3.3-5.1 [facility] Prothrombin Time w/INRon INR Coag (PPP) [Relative time] 1.2 {INR} Normal [facility] Comment on above: Performed By: #### L 500.4050, L501.2300, L501.4700, L501.5200, L100.0100, L300.3900 ####[facility] [address] [place], [place], [id number] PT Coag (PPP) [Time] 15.3 s High 11.7-14.9 [facility] Comment on above: Performed By: #### L 500.4050, L501.2300, L501.4700, L501.5200, L100.0100, L300.3900 ####[facility] [address] [place], [place], [phone] Prothrombin timeOrdered By: Prieto Gong on 10-08-2024 PT Coag (PPP) [Time] 15.3 s High 11.7-14.9 [facility] RBC Auto (Bld) [#/Vol]Ordere d By: Prieto Gong on 10-08-2024 RBC (Bld) [#/Vol] 5.26 10*6/uL 4.6-6.2 [facility] Serum creatinine measurement (mass/volume)Ordered By: Prieto Gong on 10-08-2024 Creatinine [Mass/Vol] 1.19 mg/dL 0.70-1.20 [facility] Serum globulin measurementOr dered By: Prieto Gong on 10-08-2024 Globulin (S) [Mass/Vol] 3.3 g/dL 2.2-4.2 [facility] Serum glucose measurement (m ass/volume)Ordered By: Prieto Gong on 10-08-2024 Glucose [Mass/Vol] 134 mg/dL High 70-99 [facility] Serum or plasma alanine mccarthy otransferase (ALT) measurementOrdered By: Prieto Gong on 10-08-2024 ALT [Catalytic activity/Vol] 14 U/L <47 [facility] Serum or plasma albumin lyly urement (mass/volume)Ordered By: Prieto Gong on 10-08-2024 Albumin [Mass/Vol] 4.3 g/dL 3.4-4.8 [facility] Serum or plasma albumin/glob ulin mass ratioOrdered By: Prieto Gong on 10-08-2024 Albumin/Globulin [Mass ratio] 1.3 {ratio} 0.9-2.4 [facility] Serum or plasma alkaline ruby sphatase measurementOrdered By: Prieto Gong on 10-08-2024 ALP [Catalytic activity/Vol] 92 U/L 40-129 [facility] Serum or plasma calcium lyly urement (mass/volume)Ordered By: Prieto Gong on 10-08-2024 Calcium [Mass/Vol] 9.6 mg/dL 7.6-11.0 [facility] Serum or plasma urea nitroge n measurement (mass/volume)Ordered By: Pireto Gong on 10-08-2024 Urea nitrogen [Mass/Vol] 14 mg/dL 4-19 [facility] Sodium levelOrdered By: Melvin Gong on 10-08-2024 Sodium [Moles/Vol] 140 mmol/L 133-145 [facility] Total proteinOrdered By: Eric Gong on 10-08-2024 Protein [Mass/Vol] 7.7 g/dL 5.9-8.4 [facility] White blood cell (WBC) count Ordered By: Prieto Gong on 10-08-2024 WBC (Bld) [#/Vol] 7.9 10*3/uL 4.4-11.0 [facility] Echo, Limited Studyon 2024 Echo, Limited Study [facility] [address] [place] [address] Echo, Limited Study 09/27/24 1100 MR#: [id number] Acct: [id number] Name: SEVERIANO HERNANDEZ Rep #: [id number] : 1955 69 From: Ivan Mccall MD Attending Dr: Stefanie Dunaway PA Status: REG CLI Ordering Dr: Stefanie Dunaway PA Date: 09/12 11/06 Location: [facility] Sex: M C Admitted: Reason For Study Reason For Study: CHF Procedure This was a limited 2D transthoracic echocardiogram. Myocardial strain analysis was performed in this exam to aid in the assessment of cardiac function. Exam performed in department. Left Ventricle Moderately dilated left ventricle. The left ventricular ejection fraction is 25 %. Severe segmental systolic dysfunction (see wall motion). Infero-Basal: Akinetic. Basal inferoseptal: Akinetic. The rest of the wall segments are hypokinetic. Right Ventricle Normal RV size. Normal systolic function. Atria Normal left atrium. Mitral Valve Normal mitral valve. Tricuspid Valve Normal tricuspid valve. Mild (1+) tricuspid valve insufficiency. Pulmonary artery systolic pressure is 28 mmHg. Aortic Valve Trisinus/trileaflet aortic valve. Pulmonic Valve Normal pulmonic valve. Great Vessels Normal aortic root. Pericardium/Pleural No pericardial effusion. MMode/2D Measurements Calculations LVIDd: 6.0 cm IVSd: 0.95 cm LVAd ap4: 46.5 cm2 LVIDs: 5.2 cm LVPWd: 1.0 cm LVLd ap4: 9.5 cm FS: 14.2 % EDV(MOD-sp4): 193.5 ml EDV(sp4-el): 192.5 ml LVAs ap4: 38.9 cm2 LVLs ap4: 9.1 cm ESV(MOD-sp4): 147.3 ml ESV(sp4-el): 140.5 ml EF(MOD-sp4): 23.9 % EF(sp4-el): 27.0 % LVAd ap2: 43.8 cm2 SV(MOD-sp4): 46.2 ml SV(MOD-sp2): 39.1 ml LVLd ap2: 9.7 cm SI(MOD-sp4): 23.1 ml/m2 SI(MOD-sp2): 19.5 ml/m2 EDV(MOD-sp2): 166.2 ml EDV(sp2-el): 168.4 ml LVAs ap2: 36.8 cm2 LVLs ap2: 9.0 cm ESV(MOD-sp2): 127.0 ml ESV(sp2-el): 127.1 ml EF(MOD-sp2): 23.6 % SV(sp4-el): 52.0 ml Doppler Measurements Calculations TR max marilia: 248.0 cm/sec TR max P.6 mmHg ECHO/Echo, Limited Study Interpretation Summary The left ventricular ejection fraction is 25 %. Severe segmental systolic dysfunction (see wall motion). Moderately dilated left ventricle. Compared to previous study, the left ventricular systolic function has improved.. Ordering Physician: Stefanie Dunaway Referring Physician: CLIFF TAYLOR Performed By: Micheline Lopez RDCS 09/27/24 1148 Date Ivan Mccall MD CC: Dr. 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 [address] Echo, Limited Study 09/27/24 1100 MR#: [id number] Acct: [id number] Name: SEVERIANO HERNANDEZ Rep #:[id number] : 1955 69 From: Ivan Suarez Attending Dr: PJ King Status: REG CLI Ordering Dr: Stefanie Dunaway PA Date: 09/27/24 Location: [facility] Sex: M C Admitted: Reason For Study Reason For Study: CHF Procedure This was a limited 2D transthoracic echocardiogram. Myocardial strain analysis was performed in this exam to aid in the assessment of cardiac function. Exam performed in department. Left Ventricle Moderately dilated left ventricle. The left ventricular ejection fraction is 25 %. Severe segmental systolic dysfunction (see wall motion). Infero-Basal: Akinetic. Basal inferoseptal: Akinetic. The rest of the wall segments are hypokinetic. Right Ventricle Normal RV size. Normal systolic function. Atria Normal left atrium. Mitral Valve Normal mitral valve. Tricuspid Valve Normal tricuspid valve. Mild (1+) tricuspid valve insufficiency. Pulmonary artery systolic pressure is 28 mmHg. Aortic Valve Trisinus/trileaflet aortic valve. Pulmonic Valve Normal pulmonic valve. Great Vessels Normal aortic root. Pericardium/Pleural No pericardial effusion. MMode/2D Measurements & Calculations LVIDd: 6.0 cm IVSd: 0.95 cm LVAd ap4: 46.5 cm2 LVIDs: 5.2 cm LVPWd: 1.0 cm LVLd ap4: 9.5 cm FS: 14.2 % EDV(MOD-sp4): 193.5 ml EDV(sp4-el): 192.5 ml LVAs ap4: 38.9 cm2 LVLs ap4: 9.1 cm ESV(MOD-sp4): 147.3 ml ESV(sp4-el): 140.5 ml EF(MOD-sp4): 23.9 % EF(sp4-el): 27.0 % LVAd ap2: 43.8 cm2 SV(MOD-sp4): 46.2 ml SV(MOD-sp2): 39.1 ml LVLd ap2: 9.7 cm SI(MOD-sp4): 23.1 ml/m2 SI(MOD-sp2): 19.5 ml/m2 EDV(MOD-sp2): 166.2 ml EDV(sp2-el): 168.4 ml LVAs ap2: 36.8 cm2 LVLs ap2: 9.0 cm ESV(MOD-sp2): 127.0 ml ESV(sp2-el): 127.1 ml EF(MOD-sp2): 23.6 % SV(sp4-el): 52.0 ml Doppler Measurements & Calculations TR max marilia: 248.0 cm/sec TR max P.6 mmHg ECHO/Echo, Limited Study Interpretation Summary The left ventricular ejection fraction is 25 %. Severe segmental systolic dysfunction (see wall motion). Moderately dilated left ventricle. Compared to previous study, the left ventricular systolic function has improved.. Ordering Physician: Stefanie Dunaway Referring Physician: CLIFF CHI EDVIN Performed By: Micheline Lopez ROLLY 09/27/24 1148 Date _ Ivan Mccall MD CC: Dr. Cliff Taylor MD; PJ King ~ Date Dictated: 09/27/24 1100 Date Transcribed: 09/27/24 1148 Millinery Designer: Signed [facility] Work Phone: Absolute lymphocyte countOrd ered By: Cliff Taylor on 07-16-2024 Lymphocytes Auto (Unsp spec) [#/Vol] 1.35 10*3/uL 0.83-4.51 [facility] Absolute neutrophil countOrd ered By: Cliff Taylor on 07-16-2024 Neutrophils (Bld) [#/Vol] 5.8 10*3/uL 2.0-7.7 [facility] Anion gap in Serum or Plasma Ordered By: Cliff Taylor on 07-16-2024 Anion gap [Moles/Vol] 14 mmol/L 5-15 [facility] Automated lymphocyte count a s percentage of total leukocytesOrdered By: Cliff Taylor on 07-16-2024 Lymphocytes/100 WBC Auto (Unsp spec) 16.2 % Low 19-41 [facility] BUN/creatinine ratioOrdered By: Cliff Taylor on 07-16-2024 Urea nitrogen/Creatinine [Mass ratio] 13.1 mg/mg 10-20 [facility] Basophil percentageOrdered B y: Cliff Taylor on 07-16-2024 Basophils/100 WBC (Bld) 0.8 % 0-1 [facility] Bilirubin, totalOrdered By: Cliff Taylor on 07-16-2024 Bilirubin [Mass/Vol] 2.26 mg/dL High 0.00-1.30 [facility] CBC W/Diff, Automatedon Absolute Lymph 1.35 X10 3/uL Normal 0.83-4.51 [facility] Comment on above: Performed By: #### L 100.0100, L501.9520, L506.1001, L500.4050 ####[facility] [address] [place], [address] Absolute Neut 5.8 X10 3/uL Normal 2.0-7.7 [facility] Comment on above: Performed By: #### L 100.0100, L501.9520, L506.1001, L500.4050 ####[facility] [address] [place], [address] Basophils/100 WBC (Bld) 0.8 % Normal 0-1 [facility] Comment on above: Performed By: #### L 100.0100, L501.9520, L506.1001, L500.4050 ####[facility] [address] [place], [address] Eosinophils/100 WBC (Bld) 6.3 % High 0-5 [facility] Comment on above: Performed By: #### L 100.0100, L501.9520, L506.1001, L500.4050 ####[facility] [address] [place], [address] Erythrocyte distribution width (RBC) [Ratio] 13.6 % Normal 11.6-14.6 [facility] Comment on above: Performed By: #### L 100.0100, L501.9520, L506.1001, L500.4050 ####[facility] [address] [place], [address] Hematocrit (Bld) [Volume fraction] 51.7 % Normal 40-54 [facility] Comment on above: Performed By: #### L 100.0100, L501.9520, L506.1001, L500.4050 ####[facility] [address] [place], [address] Hemoglobin (Bld) [Mass/Vol] 16.9 g/dL High 13.0-16.5 [facility] Comment on above: Performed By: #### L 100.0100, L501.9520, L506.1001, L500.4050 ####[facility] [address] [place], [address] IG% 0.200 Normal 0.0-0.9 [facility] Comment on above: Result Comment: IG% - Immature Granulocytes (promyelocytes, myelocytes and metamyelocytes) > 1% indicates that a LEFT SHIFT is Present. Performed By: #### L 100.0100, L501.9520, L506.1001, L500.4050 ####[facility] [address] [place], [address] Lymphocytes/100 WBC (Bld) 16.2 % Low 19-41 [facility] Comment on above: Performed By: #### L 100.0100, L501.9520, L506.1001, L500.4050 ####[facility] [address] [place], [address] MCH (RBC) [Entitic mass] 30.8 pg Normal 27.0-32.0 [facility] Comment on above: Performed By: #### L 100.0100, L501.9520, L506.1001, L500.4050 ####[facility] [address] [place], [address] MCHC (RBC) [Mass/Vol] 32.7 g/dL Normal 32-36 [facility] Comment on above: Performed By: #### L 100.0100, L501.9520, L506.1001, L500.4050 ####[facility] [address] [place], [address] MCV (RBC) [Entitic vol] 94.2 fL High 80-94 [facility] Comment on above: Performed By: #### L 100.0100, L501.9520, L506.1001, L500.4050 ####[facility] [address] [place], [address] Monocytes/100 WBC (Bld) 7.3 % Normal 0-10 [facility] Comment on above: Performed By: #### L 100.0100, L501.9520, L506.1001, L500.4050 ####[facility] [address] [place], [address] Neutrophils/100 WBC (Bld) 69.2 % Normal 47-70 [facility] Comment on above: Performed By: #### L 100.0100, L501.9520, L506.1001, L500.4050 ####[facility] [address] [place], [address] Nucleated RBC (Bld) [#/Vol] 0 10*3/uL Normal 0-5 [facility] Comment on above: Performed By: #### L 100.0100, L501.9520, L506.1001, L500.4050 ####[facility] [address] [place], [address] Platelet mean volume (Bld) [Entitic vol] 8.8 fL Normal 6.2-12.0 [facility] Comment on above: Performed By: #### L 100.0100, L501.9520, L506.1001, L500.4050 ####[facility] [address] [place], [address] Platelets (Bld) [#/Vol] 307 10*3/uL Normal 150-450 [facility] Comment on above: Performed By: #### L 100.0100, L501.9520, L506.1001, L500.4050 ####[facility] [address] [place], [address] RBC (Bld) [#/Vol] 5.49 10*6/uL Normal 4.6-6.2 [facility] Comment on above: Performed By: #### L 100.0100, L501.9520, L506.1001, L500.4050 ####[facility] [address] [place], [address] RDW SD 47.9 fl High 35.1-43.9 [facility] Comment on above: Performed By: #### L 100.0100, L501.9520, L506.1001, L500.4050 ####[facility] [address] [place], [address] WBC (Bld) [#/Vol] 8.4 10*3/uL Normal 4.4-11.0 [facility] Comment on above: Performed By: #### L 100.0100, L501.9520, L506.1001, L500.4050 ####[facility] [address] [place], [address] Carbon dioxide, total [Moles /volume] in Central venous bloodOrdered By: Cliff Taylor on 07-16-2024 CO2 [Moles/Vol] 25.4 mmol/L 21.0-32.0 [facility] Chloride assayOrdered By: Ramon Taylor on 07-16-2024 Chloride [Moles/Vol] 101 mmol/L 98-108 [facility] Comprehensive Metabolic Prof ilon 07-16-2024 AST [Catalytic activity/Vol] 22 U/L Normal <=37 [facility] Comment on above: Performed By: #### L 100.0100, L501.9520, L506.1001, L500.4050 ####[facility] [address] [place], [address] Eosinophil percentageOrdered By: Cliff Taylor on 07-16-2024 Eosinophils/100 WBC (Bld) 6.3 % High 0-5 [facility] Erythrocyte distribution wid th ratioOrdered By: Cliff Taylor on 07-16-2024 Erythrocyte distribution width (RBC) [Ratio] 13.6 % 11.6-14.6 [facility] Erythrocyte distribution wid th standard deviationOrdered By: Cliff Taylor on 07-16-2024 Erythrocyte distribution width (RBC) [Entitic vol] 47.9 fL High 35.1-43.9 [facility] Erythrocyte distribution width (RBC) [Ratio] 47.9 fl High 35.1-43.9 [facility] GFR/1.73 sq M.predicted norberto g non-blacks MDRD (S/P/Bld) [Vol rate/Area]Ordered By: Cliff Taylor on 07-16-2024 Estimated GFR (MDRD) Non-Af Amer 57 Low >60 [facility] Comment on above: mL/min/1.73m2 CKD-EP I Creatinine Equation (2020) Glomerular filtration rate ( GFR) estimation/1.73 sq m using serum, plasma, or whole bOrdered By: Cliff Taylor on 07-16-2024 GFR/1.73 sq M.predicted among non-blacks MDRD (S/P/Bld) [Vol rate/Area] 57 mL/min/{1.73_m2} Low >60 [facility] Comment on above: mL/min/1.73m2 CKD-EP I Creatinine Equation (2020) Hematocrit Auto (Bld) [Volum e fraction]Ordered By: Cliff Taylor on 07-16-2024 Hematocrit (Bld) [Volume fraction] 51.7 % 40-54 [facility] Hemoglobin measurementOrdere d By: Cliff Taylor 07-16-2024 Hemoglobin (Bld) [Mass/Vol] 16.9 g/dL High 13.0-16.5 [facility] Immature granulocytes/100 WB C Auto (Bld)Ordered By: Cliff Taylor on 07-16-2024 Immature granulocytes/100 WBC (Bld) 0.200 % 0.0-0.9 [facility] Comment on above: IG% - Immature Granu locytes (promyelocytes, myelocytes and metamyelocytes) > 1% indicates that a LEFT SHIFT is Present. L506.1001on 07-16-2024 Vitamin D 25-OH 47.6 ng/mL Normal 30-100 [facility] Comment on above: Result Comment: Meghna min D Status Deficiency: <20 ng/mL (50nmol/L) Insufficiency: 20-30 ng/mL (50-75 nmol/L) Sufficiency: 30-100 ng/mL (75-250 nmol/L) Toxicity: >100 ng/mL (>250 nmol/L) Performed By: #### L 100.0100, L501.9520, L506.1001, L500.4050 ####[facility] [address] [place], [address] Laboratory - Chemistry and C hemistry - challengeOrdered By: Cliff Taylor on 07-16-2024 AST [Catalytic activity/Vol] 22 U/L <38 [facility] Lymphocytes Auto (Unsp spec) [#/Vol]Ordered By: Cliff Taylor on 07-16-2024 Lymphocytes (Bld) [#/Vol] 1.35 10*3/uL 0.83-4.51 [facility] Lymphocytes/100 WBC Auto (Un sp spec)Ordered By: Cliff Taylor on 07-16-2024 Lymphocytes/100 WBC (Bld) 16.2 % Low 19-41 [facility] MCV (mean corpuscular volume ) determinationOrdered By: Cliff Taylor 07-16-2024 MCV (RBC) [Entitic vol] 94.2 fL High 80-94 [facility] Mean corpuscular hemoglobin (MCH) determinationOrdered By: Cliff Taylor 07-16-2024 MCH (RBC) [Entitic mass] 30.8 pg 27.0-32.0 [facility] Mean corpuscular hemoglobin concentration (MCHC) determinationOrdered By: Cliff Taylor 07-16-2024 MCHC (RBC) [Mass/Vol] 32.7 g/dL 32-36 [facility] Mean platelet volume determi nationOrdered By: Cliff Taylor 07-16-2024 Platelet mean volume (Bld) [Entitic vol] 8.8 fL 6.2-12.0 [facility] Monocyte percentageOrdered B y: Cliff Taylor on 07-16-2024 Monocytes/100 WBC (Bld) 7.3 % 0-10 [facility] Neutrophil percentageOrdered By: Cliff Taylor 07-16-2024 Neutrophils/100 WBC (Bld) 69.2 % 47-70 [facility] Nucleated red blood cell per centageOrdered By: Cliff Taylor on 07-16-2024 Nucleated RBC/100 WBC (Bld) [Ratio] 0 % 0-5 [facility] Platelet countOrdered By: Ramon Taylor on 07-16-2024 Platelets (Bld) [#/Vol] 307 10*3/uL 150-450 [facility] Potassium (Unsp spec) [Mass/ Vol]Ordered By: Cliff Taylor on 07-16-2024 Potassium [Moles/Vol] 4.0 mmol/L 3.3-5.1 [facility] Potassium measurement (mass/ volume)Ordered By: Cliff Taylor on 07-16-2024 Potassium (Unsp spec) [Mass/Vol] 4.0 mmol/L 3.3-5.1 [facility] RBC Auto (Bld) [#/Vol]Ordere d By: Cliff Taylor on 07-16-2024 RBC (Bld) [#/Vol] 5.49 10*6/uL 4.6-6.2 [facility] Serum creatinine measurement (mass/volume)Ordered By: Cliff Taylor on 07-16-2024 Creatinine [Mass/Vol] 1.34 mg/dL High 0.70-1.20 [facility] Serum globulin measurementOr dered By: Cliff Taylor 07-16-2024 Globulin (S) [Mass/Vol] 3.8 g/dL 2.2-4.2 [facility] Serum glucose measurement (m ass/volume)Ordered By: Cliff Taylor 07-16-2024 Glucose [Mass/Vol] 123 mg/dL High 70-99 [facility] Serum or plasma alanine mccarthy otransferase (ALT) measurementOrdered By: Cliff Taylor 07-16-2024 ALT [Catalytic activity/Vol] 14 U/L <47 [facility] Serum or plasma albumin lyly urement (mass/volume)Ordered By: Cliff Taylor on 07-16-2024 Albumin [Mass/Vol] 4.6 g/dL 3.4-4.8 [facility] Serum or plasma albumin/glob ulin mass ratioOrdered By: Cliff Taylor 07-16-2024 Albumin/Globulin [Mass ratio] 1.2 {ratio} 0.9-2.4 [facility] Serum or plasma alkaline ruby sphatase measurementOrdered By: Cliff Taylor 07-16-2024 ALP [Catalytic activity/Vol] 94 U/L 40-129 [facility] Serum or plasma calcium lyly urement (mass/volume)Ordered By: Cliff Taylor on 07-16-2024 Calcium [Mass/Vol] 10.3 mg/dL 7.6-11.0 [facility] Serum or plasma urea nitroge n measurement (mass/volume)Ordered By: Cliff Taylor on 07-16-2024 Urea nitrogen [Mass/Vol] 18 mg/dL 4-19 [facility] Sodium levelOrdered By: Cliff Taylor 07-16-2024 Sodium [Moles/Vol] 141 mmol/L 133-145 [facility] TSH DL <= 0.005 mIU/L QnOrde red By: Cliff Taylor 07-16-2024 Thyroid Stimulating Hormone (TSH) 2.220 uIU/mL 0.300-4.20 0 [facility] TSH Qn 2.220 uIU/mL 0.300-4.20 0 [facility] Thyroid Stim Hormone (TSH)on 07-16-2024 TSH 2.220 uIU/mL Normal 0.300-4.20 0 [facility] Comment on above: Performed By: #### L 100.0100, L501.9520, L506.1001, L500.4050 ####[facility] [address] [place], [address] Total proteinOrdered By: Cliff Taylor 07-16-2024 Protein [Mass/Vol] 8.4 g/dL 5.9-8.4 [facility] Vitamin D, 25-hydroxyOrdered By: Cliff Taylor 07-16-2024 Vitamin D 25-Hydroxy 47.6 ng/mL 30-100 [facility] Comment on above: Vitamin D StatusDefi ciency: <20 ng/mL (50nmol/L)Insufficiency: 20-30 ng/mL (50-75 nmol/L)Sufficiency: 30-100 ng/mL (75-250 nmol/L)Toxicity: >100 ng/mL (>250 nmol/L) White blood cell (WBC) count Ordered By: Cliff Taylor on 07-16-2024 WBC (Bld) [#/Vol] 8.4 10*3/uL 4.4-11.0 [facility] ABD Limited w/ Elastographyo n 07-10-2024 ABD Limited w/ Elastography [facility] Imaging Services [address] [place], [place] [address] ABD Limited w/ Elastography MR#: [id number] Acct: [id number] Name: SEVERIANO HERNANDEZ Rep #: [id number] : 1955 M 69 From: Gerber anaya MD PCP: Dr. Cliff Taylor MD Status: REG CLI Study: ABD Limited w/ Elastography Date of Exam: 06/16 11/06 Exam# [id number] Ordering Dr: Prieto Gong MD PROCEDURE: ABD LIMITED W/ ELASTOGRAPHY REASON FOR EXAM: Cirrhosis. COMPARISON: None. TECHNIQUE: Right upper quadrant abdominal ultrasound. Tariq ElastQ Imaging shear wave elastography for non- invasive assessment of liver tissue stiffness. Tariq EPIQ Elite. FINDINGS: LIVER: Size: Unremarkable Length: 15.6 cm cm Echotexture: Coarsened Contour: Normal Lesions: None identified Elastography: EQI Med: 8.73 kPa EQI Med Marilia: 1.71 m/s IQR/Med: 50 %* GALLBLADDER: Multiple gallstones. COMMON BILE DUCT: Normal measures 1.6 mm. PANCREAS: Obscured by bowel gas. Visualized portions of the right kidney are unremarkable. No right upper quadrant ascites. US/ABD Limited w/ Elastography IMPRESSION: MODERATE TO SEVERE HEPATIC FIBROSIS Reference Values: SRU <1.37 m/s (5.7kPa): No to mild fibrosis 1.37 m/s - 2.2 m/s: Moderate to severe fibrosis >2.2 m/s (15kPa): Significant fibrosis / cirrhosis METAVIR Score F2 or higher: 1.34 m/s (5.7kPa) F3 or higher: 1.55 m/s (7.3kPa) F4: 1.80 m/s (10kPa) * If the IQR/Med is >30%, the variance in the measurements is a large and the accuracy of the measurement may be in question. Reading Location: [id number] CC: Dr. Prieto Gong MD; Dr. Cliff Taylor MD Millinery Designer: Signed Normal [facility] [id number] 06-28-2024 [facility] COM[facility] Normal . [facility] Comment on above: Order Comment: [id number] 9Enhanced Liver Fibrosis Result Comment: Test Ordered: [id number] Enhanced Liver Fibrosis (ELF) ELF(TM) Score 11.38 [H ] BN Reference Range: <9.80 ELF(TM) Score Interpretation: Risk cut-offs to assess the likelihood of progression to cirrhosis and liver-related clinical events within 3.9 years following baseline ELF score (IQR: 14.0-22.4 months)*: Lower risk < 9.80 Mid risk 9.80 - 11.29 Higher risk >11.29 Note: The ELF(TM) Score is a unitless numerical value. *Clark SA, Christian VW, Carol T, et al. Selonsertib for patients with bridging fibrosis or compensated cirrhosis due to HCEN: Results from randomized phase III STELLAR trials. J Hepatol. 2020 Nov;73(1):26-39. Performed at: [address] [id number] Customer Service Sales Associate: Ne Mcguire MD, Phone: [phone] Performed at: [address] [id number] Customer Service Sales Associate: Carlos Betancourt PhD, Phone: [phone] Performed By: #### L 100.0100, L300.3900, L506.1000, L500.4050, L500.4100, L501.2300, L501.4700, L501.5200, L3410.9998 ####[facility] [address] [place], [address] Bilirubin, Directon 06-26-19 25 Bilirubin.direct [Mass/Vol] 0.58 mg/dL High 0.00-0.30 [facility] Comment on above: Performed By: #### L 100.0100, L300.3900, L506.1000, L500.4050, L500.4100, L501.2300, L501.4700, L501.5200, L3410.9998 ####[facility] [address] [place], [place], [id number] Comprehensive Metabolic Prof ilon 06-26-2024 Albumin [Mass/Vol] 4.2 g/dL Normal 3.2-5.0 [facility] Comment on above: Order Comment: Serum ELF test. Performed By: #### L 100.0100, L300.3900, L506.1000, L500.4050, L500.4100, L501.2300, L501.4700, L501.5200, L3410.9998 ####[facility] [address] [place], [place], [id number] Albumin/Globulin [Mass ratio] 1.2 {ratio} Normal 0.9-2.4 [facility] Comment on above: Order Comment: Serum ELF test. Performed By: #### L 100.0100, L300.3900, L506.1000, L500.4050, L500.4100, L501.2300, L501.4700, L501.5200, L3410.9998 ####[facility] [address] [place], [place], [id number] ALK P 92 U/L Normal 45-117 [facility] Comment on above: Order Comment: Serum ELF test. Performed By: #### L 100.0100, L300.3900, L506.1000, L500.4050, L500.4100, L501.2300, L501.4700, L501.5200, L3410.9998 ####[facility] [address] [place], [address] ALT [Catalytic activity/Vol] 21 U/L Normal 16-61 [facility] Comment on above: Order Comment: Serum ELF test. Performed By: #### L 100.0100, L300.3900, L506.1000, L500.4050, L500.4100, L501.2300, L501.4700, L501.5200, L3410.9998 ####[facility] [address] [place], [address] AST [Catalytic activity/Vol] 16 U/L Normal 15-37 [facility] Comment on above: Order Comment: Serum ELF test. Performed By: #### L 100.0100, L300.3900, L506.1000, L500.4050, L500.4100, L501.2300, L501.4700, L501.5200, L3410.9998 ####[facility] [address] [place], [place], [phone] Bilirubin [Mass/Vol] 2.60 mg/dL High 0.20-1.00 [facility] Comment on above: Order Comment: Serum ELF test. Result Comment: For patients on eltrombopag therapy, use of Dimension [place] TBIL is not recommended. Performed By: #### L 100.0100, L300.3900, L506.1000, L500.4050, L500.4100, L501.2300, L501.4700, L501.5200, L3410.9998 ####[facility] [address] [place], [place], [phone] BUN/CRE 14.8 RATIO Normal 10-20 [facility] Comment on above: Order Comment: Serum ELF test. Performed By: #### L 100.0100, L300.3900, L506.1000, L500.4050, L500.4100, L501.2300, L501.4700, L501.5200, L3410.9998 ####[facility] [address] [place], [address] CA,Total 9.5 mg/dL Normal 8.5-10.1 [facility] Comment on above: Order Comment: Serum ELF test. Performed By: #### L 100.0100, L300.3900, L506.1000, L500.4050, L500.4100, L501.2300, L501.4700, L501.5200, L3410.9998 ####[facility] [address] [place], [address] Chloride [Moles/Vol] 104 mmol/L Normal 98-107 [facility] Comment on above: Order Comment: Serum ELF test. Performed By: #### L 100.0100, L300.3900, L506.1000, L500.4050, L500.4100, L501.2300, L501.4700, L501.5200, L3410.9998 ####[facility] [address] [place], [address] CO2 [Moles/Vol] 28.0 mmol/L Normal 21.0-32.0 [facility] Comment on above: Order Comment: Serum ELF test. Performed By: #### L 100.0100, L300.3900, L506.1000, L500.4050, L500.4100, L501.2300, L501.4700, L501.5200, L3410.9998 ####[facility] [address] [facility] [place], [place], [phone] Creatinine [Mass/Vol] 1.35 mg/dL High 0.70-1.30 [facility] Comment on above: Order Comment: Serum ELF test. Result Comment: The validity of the calculated GFR GFRAA in patients over 70 years has not been determined. Clinical correlation is essential. Performed By: #### L 100.0100, L300.3900, L506.1000, L500.4050, L500.4100, L501.2300, L501.4700, L501.5200, L3410.9998 ####[facility] [address] [place], [address] EST GFR - AA 67 mL/min Normal >60 [facility] Comment on above: Order Comment: Serum ELF test. Result Comment: Afri can Bangladeshi GFR Calc Performed By: #### L 100.0100, L300.3900, L506.1000, L500.4050, L500.4100, L501.2300, L501.4700, L501.5200, L3410.9998 ####[facility] [address] [place], [address] GAP 9 Normal 5-15 [facility] Comment on above: Order Comment: Serum ELF test. Performed By: #### L 100.0100, L300.3900, L506.1000, L500.4050, L500.4100, L501.2300, L501.4700, L501.5200, L3410.9998 ####[facility] [address] [place], [address] GFR/1.73 sq M.predicted among non-blacks MDRD (S/P/Bld) [Vol rate/Area] 55 mL/min/{1.73_m2} Low >60 [facility] Comment on above: Order Comment: Serum ELF test. Result Comment: Non- GFR Calc Performed By: #### L 100.0100, L300.3900, L506.1000, L500.4050, L500.4100, L501.2300, L501.4700, L501.5200, L3410.9998 ####[facility] [address] [place], [address] Globulin (S) [Mass/Vol] 3.5 g/dL Normal 2.2-4.2 [facility] Comment on above: Order Comment: Serum ELF test. Performed By: #### L 100.0100, L300.3900, L506.1000, L500.4050, L500.4100, L501.2300, L501.4700, L501.5200, L3410.9998 ####[facility] [address] [place], [address] Glucose [Mass/Vol] 129 mg/dL High 74-106 [facility] Comment on above: Order Comment: Serum ELF test. Result Comment: Fast ing Glucose result greater than or equal to 126 mg/dL suggests DIABETES MELLITUS per A.D.A. criteria. Performed By: #### L 100.0100, L300.3900, L506.1000, L500.4050, L500.4100, L501.2300, L501.4700, L501.5200, L3410.9998 ####[facility] [address] [place], [address] Potassium [Moles/Vol] 3.7 mmol/L Normal 3.5-5.1 [facility] Comment on above: Order Comment: Serum ELF test. Performed By: #### L 100.0100, L300.3900, L506.1000, L500.4050, L500.4100, L501.2300, L501.4700, L501.5200, L3410.9998 ####[facility] [address] [place], [address] Sodium [Moles/Vol] 141 mmol/L Normal 136-145 [facility] Comment on above: Order Comment: Serum ELF test. Performed By: #### L 100.0100, L300.3900, L506.1000, L500.4050, L500.4100, L501.2300, L501.4700, L501.5200, L3410.9998 ####[facility] [address] [place], [address] T PROT 7.7 g/dL Normal 6.4-8.2 [facility] Comment on above: Order Comment: Serum ELF test. Performed By: #### L 100.0100, L300.3900, L506.1000, L500.4050, L500.4100, L501.2300, L501.4700, L501.5200, L3410.9998 ####[facility] [address] [place], [address] Urea nitrogen [Mass/Vol] 20 mg/dL High 7-18 [facility] Comment on above: Order Comment: Serum ELF test. Performed By: #### L 100.0100, L300.3900, L506.1000, L500.4050, L500.4100, L501.2300, L501.4700, L501.5200, L3410.9998 ####[facility] [address] [place], [address] Lipid Profileon 06-26-2024 Cholesterol [Mass/Vol] 176 mg/dL Normal [address] [facility] Comment on above: Result Comment: <200 mg/dL Desirable 200-240 mg/dL Borderline >240 mg/dL High Risk Performed By: #### L 100.0100, L300.3900, L506.1000, L500.4050, L500.4100, L501.2300, L501.4700, L501.5200, L3410.9998 ####[facility] [address] [place], [address] Cholesterol in HDL [Mass/Vol] 55 mg/dL Normal [facility] Comment on above: Result Comment: The drugs N-Acetylcysteine and Metamizole may falsely depress this assay. Reference Range HDL <40 mg/dL Low HDL Cholesterol HDL >or= 60 mg/dL High HDL Cholesterol Performed By: #### L 100.0100, L300.3900, L506.1000, L500.4050, L500.4100, L501.2300, L501.4700, L501.5200, L3410.9998 ####[facility] [address] [place], [address] Cholesterol in LDL [Mass/Vol] 98 mg/dL Normal 0-130 [facility] Comment on above: Performed By: #### L 100.0100, L300.3900, L506.1000, L500.4050, L500.4100, L501.2300, L501.4700, L501.5200, L3410.9998 ####[facility] [address] [place], [address] Cholesterol in VLDL [Mass/Vol] 23 mg/dL Normal 5-40 [facility] Comment on above: Performed By: #### L 100.0100, L300.3900, L506.1000, L500.4050, L500.4100, L501.2300, L501.4700, L501.5200, L3410.9998 ####[facility] [address] [place], [address] Triglyceride [Mass/Vol] 117 mg/dL Normal [facility] Comment on above: Result Comment: The drugs N-Acetylcysteine and Metamizole may falsely depress this assay. Serum Triglycerides Reference Interval Normal <150 mg/dL Borderline high 150 - 199 mg/dL High 200 - 499 mg/dL Very High > or = 500 mg/dL Performed By: #### L 100.0100, L300.3900, L506.1000, L500.4050, L500.4100, L501.2300, L501.4700, L501.5200, L3410.9998 ####[facility] [address] [place], [address] Magnesiumon 06-26-2024 Magnesium [Mass/Vol] 2.4 mg/dL Normal 1.6-2.6 [facility] Comment on above: Performed By: #### L 100.0100, L300.3900, L506.1000, L500.4050, L500.4100, L501.2300, L501.4700, L501.5200, L3410.9998 ####[facility] [address] [place], [address] Phosphoruson 06-26-2024 Phosphate [Mass/Vol] 4.2 mg/dL Normal 2.5-4.9 [facility] Comment on above: Performed By: #### L 100.0100, L300.3900, L506.1000, L500.4050, L500.4100, L501.2300, L501.4700, L501.5200, L3410.9998 ####[facility] [address] [place], [address] 81-TR-Ppoyodk DOrdered By: Gardenia Gong on 06-25-2024 Vitamin D 25-Hydroxy 45.9 ng/mL [facility] Comment on above: Vitamin D 25(OH) Sta tus Range Deficiency <20 ng/mL (50nmol/L) Insufficiency 20 - 30 ng/mL (50 - 75 nmol/L) Sufficiency 30 - 100 ng/mL (75 - 250 nmol/L) Toxicity >100 ng/mL (>250 nmol/L) Absolute lymphocyte countOrd ered By: Prieto oGng on 06-25-2024 Lymphocytes Auto (Unsp spec) [#/Vol] 1.33 10*3/uL 0.83-4.51 [facility] Absolute neutrophil countOrd ered By: Prieto Gong on 06-25-2024 Neutrophils (Bld) [#/Vol] 5.2 10*3/uL 2.0-7.7 [facility] Albumin to globulin ratioOrd ered By: Prieto Gong on 06-25-2024 Albumin/Globulin [Mass ratio] 1.2 {ratio} 0.9-2.4 [facility] Automated lymphocyte count a s percentage of total leukocytesOrdered By: Prieto Gong on 06-25-2024 Lymphocytes/100 WBC Auto (Unsp spec) 16.9 % Low 19-41 [facility] Basophil percentageOrdered B y: Prieto Gong on 06-25-2024 Basophils/100 WBC (Bld) 0.9 % 0-1 [facility] Bilirubin directOrdered By: Prieto Gong on 06-25-2024 Bilirubin.direct [Mass/Vol] 0.58 mg/dL High 0.00-0.30 [facility] Bilirubin, totalOrdered By: Prieto Gong on 06-25-2024 Bilirubin [Mass/Vol] 2.60 mg/dL High 0.20-1.00 [facility] Comment on above: For patients on eltr ombopag therapy, use of Dimension [place] TBIL is not recommended. Blood urea nitrogen (BUN)/cr eatinine ratioOrdered By: Prieto Gong on 06-25-2024 Urea nitrogen/Creatinine [Mass ratio] 14.8 mg/mg 10-20 [facility] CBC W/Diff, Automatedon 06-15 Absolute Lymph 1.33 X10 3/uL Normal 0.83-4.51 [facility] Comment on above: Performed By: #### L 100.0100, L300.3900, L506.1000, L500.4050, L500.4100, L501.2300, L501.4700, L501.5200, L3410.9998 ####[facility] [address] [place], [address] Absolute Neut 5.2 X10 3/uL Normal 2.0-7.7 [facility] Comment on above: Performed By: #### L 100.0100, L300.3900, L506.1000, L500.4050, L500.4100, L501.2300, L501.4700, L501.5200, L3410.9998 ####[facility] [address] [place], [address] Basophils/100 WBC (Bld) 0.9 % Normal 0-1 [facility] Comment on above: Performed By: #### L 100.0100, L300.3900, L506.1000, L500.4050, L500.4100, L501.2300, L501.4700, L501.5200, L3410.9998 ####[facility] [address] [place], [address] Eosinophils/100 WBC (Bld) 7.1 % High 0-5 [facility] Comment on above: Performed By: #### L 100.0100, L300.3900, L506.1000, L500.4050, L500.4100, L501.2300, L501.4700, L501.5200, L3410.9998 ####[facility] [address] [place], [address] Erythrocyte distribution width (RBC) [Ratio] 13.9 % Normal 11.6-14.6 [facility] Comment on above: Performed By: #### L 100.0100, L300.3900, L506.1000, L500.4050, L500.4100, L501.2300, L501.4700, L501.5200, L3410.9998 ####[facility] [address] [place], [address] Hematocrit (Bld) [Volume fraction] 45.9 % Normal 40-54 [facility] Comment on above: Performed By: #### L 100.0100, L300.3900, L506.1000, L500.4050, L500.4100, L501.2300, L501.4700, L501.5200, L3410.9998 ####[facility] [address] [place], [address] Hemoglobin (Bld) [Mass/Vol] 15.5 g/dL Normal 13.0-16.5 [facility] Comment on above: Performed By: #### L 100.0100, L300.3900, L506.1000, L500.4050, L500.4100, L501.2300, L501.4700, L501.5200, L3410.9998 ####[facility] [address] [place], [address] IG% 0.400 Normal 0.0-0.9 [facility] Comment on above: Result Comment: IG% - Immature Granulocytes (promyelocytes, myelocytes and metamyelocytes) > 1% indicates that a LEFT SHIFT is Present. Performed By: #### L 100.0100, L300.3900, L506.1000, L500.4050, L500.4100, L501.2300, L501.4700, L501.5200, L3410.9998 ####[facility] [address] [place], [address] Lymphocytes/100 WBC (Bld) 16.9 % Low 19-41 [facility] Comment on above: Performed By: #### L 100.0100, L300.3900, L506.1000, L500.4050, L500.4100, L501.2300, L501.4700, L501.5200, L3410.9998 ####[facility] [address] [place], [address] MCH (RBC) [Entitic mass] 31.1 pg Normal 27.0-32.0 [facility] Comment on above: Performed By: #### L 100.0100, L300.3900, L506.1000, L500.4050, L500.4100, L501.2300, L501.4700, L501.5200, L3410.9998 ####[facility] [address] [place], [address] MCHC (RBC) [Mass/Vol] 33.8 g/dL Normal 32-36 [facility] Comment on above: Performed By: #### L 100.0100, L300.3900, L506.1000, L500.4050, L500.4100, L501.2300, L501.4700, L501.5200, L3410.9998 ####[facility] [address] [place], [address] MCV (RBC) [Entitic vol] 92.0 fL Normal 80-94 [facility] Comment on above: Performed By: #### L 100.0100, L300.3900, L506.1000, L500.4050, L500.4100, L501.2300, L501.4700, L501.5200, L3410.9998 ####[facility] [address] [place], [address] Monocytes/100 WBC (Bld) 9.0 % Normal 0-10 [facility] Comment on above: Performed By: #### L 100.0100, L300.3900, L506.1000, L500.4050, L500.4100, L501.2300, L501.4700, L501.5200, L3410.9998 ####[facility] [address] [place], [address] Neutrophils/100 WBC (Bld) 65.7 % Normal 47-70 [facility] Comment on above: Performed By: #### L 100.0100, L300.3900, L506.1000, L500.4050, L500.4100, L501.2300, L501.4700, L501.5200, L3410.9998 ####[facility] [address] [place], [address] Nucleated RBC (Bld) [#/Vol] 0 10*3/uL Normal 0-5 [facility] Comment on above: Performed By: #### L 100.0100, L300.3900, L506.1000, L500.4050, L500.4100, L501.2300, L501.4700, L501.5200, L3410.9998 ####[facility] [address] [place], [address] Platelet mean volume (Bld) [Entitic vol] 8.6 fL Normal 6.2-12.0 [facility] Comment on above: Performed By: #### L 100.0100, L300.3900, L506.1000, L500.4050, L500.4100, L501.2300, L501.4700, L501.5200, L3410.9998 ####[facility] [address] [place], [address] Platelets (Bld) [#/Vol] 267 10*3/uL Normal 150-450 [facility] Comment on above: Performed By: #### L 100.0100, L300.3900, L506.1000, L500.4050, L500.4100, L501.2300, L501.4700, L501.5200, L3410.9998 ####[facility] [address] [facility] [place], [address] RBC (Bld) [#/Vol] 4.99 10*6/uL Normal 4.6-6.2 [facility] Comment on above: Performed By: #### L 100.0100, L300.3900, L506.1000, L500.4050, L500.4100, L501.2300, L501.4700, L501.5200, L3410.9998 ####[facility] [address] [facility] [place], [address] RDW SD 47.3 fl High 35.1-43.9 [facility] Comment on above: Performed By: #### L 100.0100, L300.3900, L506.1000, L500.4050, L500.4100, L501.2300, L501.4700, L501.5200, L3410.9998 ####[facility] [address] [place], [address] WBC (Bld) [#/Vol] 7.9 10*3/uL Normal 4.4-11.0 [facility] Comment on above: Performed By: #### L 100.0100, L300.3900, L506.1000, L500.4050, L500.4100, L501.2300, L501.4700, L501.5200, L3410.9998 ####[facility] [address] [place], [address] Carbon dioxide measurementOr dered By: Prieto Gong on 06-25-2024 CO2 [Moles/Vol] 28.0 mmol/L 21.0-32.0 [facility] Chloride measurementOrdered By: Prieto Gong on 06-25-2024 Chloride [Moles/Vol] 104 mmol/L 98-107 [facility] Eosinophil percentageOrdered By: Prieto Gong on 06-25-2024 Eosinophils/100 WBC (Bld) 7.1 % High 0-5 [facility] Erythrocyte distribution wid th ratioOrdered By: Prieto Gong on 06-25-2024 Erythrocyte distribution width (RBC) [Ratio] 13.9 % 11.6-14.6 [facility] Erythrocyte distribution wid th standard deviationOrdered By: Prieto Gong on 06-25-2024 Erythrocyte distribution width (RBC) [Entitic vol] 47.3 fL High 35.1-43.9 [facility] Erythrocyte distribution width (RBC) [Ratio] 47.3 fl High 35.1-43.9 [facility] Estimated glomerular filtrat ion rate (GFR) AmericanOrdered By: Prieto Gong on 06-25-2024 Estimated GFR (MDRD) Amer 67 mL/min >60 [facility] Comment on above: GFR Calc Gastroenterology Visit Repor ton 06-25-2024 Gastroenterology Visit Report [facility] [address] [place] [address] OFFICE VISIT Date of Service: 06/25/24 MR#: [id number] Acct: [id number] Name: SEVERIANO HERNANDEZ Rep #: [id number] : 1955 Provider: Dr. Prieto suarez MD Age/Sex: 69/M Location: [facility] [place] [place].[facility] Status: Signed with Addenda ADDENDUM by Dr. Prieto Gong MD on 06/26/24 at 2032 HPI Details: SEVERIANO MARY, is a 69 M who presents to the office today for Addendum MELD Na score is 16. TB is increased. Spirinolactone dose increased and new script for Urosdiol ordered 06/26/242031 Date Prieto Gong MD cc: Dr. Cliff Taylor MD * Signed Intake Vital Signs 03/14/24 09:07 06/10/24 08:54 06/25/24 09:32 Height 6 ft 6 ft 6 ft Weight: 175 lb 180 lb BMI 23.7 24.4 BP 136/84 H Blood Pressure Location Lt brachial Rt brachial Position Sitting Sitting Respiration 18 Pulse 82 71 Pulse Source Monitor Pulse Oximetry (%) 99 97 Oxygen Delivery Method room air Intake Visit Reasons: 3 M FU Chief Complaint: Cirrhosis Allergies pravastatin sodium (From Pravachol) Allergy (Verified 06/25/24 09:32) Unknown carvedilol (From Coreg) Adverse Reaction (Intermediate, Verified 06/25/24 09:32) diarrhea atorvastatin calcium (From Lipitor) Adverse Reaction (Verified 06/25/24 09:32) Pain in joints gemfibrozil Adverse Reaction (Verified 06/25/24 09:32) myalgia Have you fallen in the past year?: No [facility] Medical History Wears glasses Wrist injury Loss of consciousness Injury of back Dietary restriction Shortness of breath on exertion History of pain when walking History of edema History of echocardiogram History of stress test Cardiology follow-up encounter History of atrial fibrillation Non-smoker Coronary artery disease Hypertension Pure hypercholesterolemia Essential hypertension Atherosclerosis of coronary artery bypass graft without angina pectoris Non-ST elevation (NSTEMI) myocardial infarction White coat syndrome with hypertension RBBB Premature ventricular contraction Nonrheumatic aortic valve insufficiency Atherosclerosis of coronary artery of [place] heart without angina pectoris Non-alcoholic fatty liver disease Surgical History History of cardiac catheterization Hx of colonoscopy History of coronary artery stent placement History of esophagogastroduodenoscopy (EGD) ( 2014) H/O coronary artery bypass surgery ( 08/12/15) Family History Mother CAD (coronary artery disease) Hypertension Grandmother Myocardial infarction Social History Smoking Status: Never smoker alcohol intake: current details: rare substance use type: does not use HPI HPI Chief Complaint: Cirrhosis Details: SEVERIANO HERNADNEZ, is a 69 M who presents to the office today for follow up.02.21.24- Liver bx, Liver parenchymal tissue with increased portal, periportal fibrosis, bridging fibrosis and changes suggestive of early cirrhosis OV 03.26.24- hospital f/u. 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 He underwent liver biopsy which showed early cirrhosis. He had paracentesis with removal of 8 liters. MELD score of 15. Since then he has underwent cardiac catheterization and had some issues with carvedilol which sent him back to hospital. EGD .07.09- Normal esophagus, nodular mucosa in the duodenal bulb. Path: Fragments of duodenal mucosa with moderate chronic inflammation and extensive gastric metaplasia OV 06.25.24- Pt well since last visit. States he is having some weakness but denies fatigue, sob, swelling, dizziness or confusion. Is not having abdominal pain. BM are normal once a day. No other concerns. Early cirrhosis diagnosed with liver biopsy. ROS Const Constitutional: Positive for fatigue and weakness; No fever(s) or weight change Eyes Eyes: No blurry vision, change in vision or double vision ENT ENT: No difficulty swallowing Resp Respiratory: No shortness of breath (Dyspnea on exertion) or wheezing Cardio Cardiology: No chest pain at rest or dyspnea on exertion Gastro GI: No abdominal pain, belching, bloating, change in bowel habits, change in stool character, coffee ground emesis, constipation, cramping, diarrhea, heartburn, difficulty swallowing, feeling full early, excessive flatus, incontinent of stools, Vomiting blood/hematemesis, Blood in stool, loose stools, Black,tarry stools, nausea/dyspepsia, pain with swallowing, vomiting or other Genitourinary Male: (more content not included)... Normal [facility] Glomerular filtration rate ( GFR) estimationOrdered By: Prieto Gong on 06-25-2024 Estimated GFR (MDRD) Non-Af Amer 55 mL/min Low >60 [facility] Comment on above: Non- GFR Calc GFR/1.73 sq M.predicted among non-blacks MDRD (S/P/Bld) [Vol rate/Area] 55 mL/min/{1.73_m2} Low >60 [facility] Comment on above: Non- GFR Calc Glucose measurementOrdered B y: Prieto Gong on 06-25-2024 Glucose [Mass/Vol] 129 mg/dL High 74-106 [facility] Comment on above: Fasting Glucose resu lt greater than or equal to 126 mg/dL suggests DIABETES MELLITUS per A.D.A. criteria. Hematocrit Auto (Bld) [Volum e fraction]Ordered By: Prieto Gong on 06-25-2024 Hematocrit (Bld) [Volume fraction] 45.9 % 40-54 [facility] Hemoglobin measurementOrdere d By: Prieto Gong on 06-25-2024 Hemoglobin (Bld) [Mass/Vol] 15.5 g/dL 13.0-16.5 [facility] High density lipoprotein (HD L) measurementOrdered By: Prieto Gong on 06-25-2024 Cholesterol in HDL [Mass/Vol] 55 mg/dL >40 [facility] Comment on above: The drugs N-Acetylcy steine and Metamizole may falsely depress this assay. Reference Range HDL <40 mg/dL Low HDL Cholesterol HDL >or= 60 mg/dL High HDL Cholesterol Immature granulocytes/100 WB C Auto (Bld)Ordered By: Prieto Gong on 06-25-2024 Immature granulocytes/100 WBC (Bld) 0.400 % 0.0-0.9 [facility] Comment on above: IG% - Immature Granu locytes (promyelocytes, myelocytes and metamyelocytes) > 1% indicates that a LEFT SHIFT is Present. International normalized rat io (INR) calculationOrdered By: Prieto Gong on 06-25-2024 INR Coag (Bld) [Relative time] 1.3 {INR} [facility] Laboratory - Chemistry and C hemistry - challengeOrdered By: Prieto Gong on 06-25-2024 AST [Catalytic activity/Vol] 16 U/L 15-37 [facility] Low density lipoprotein (LDL ) cholesterol measurementOrdered By: Prieto Gong on 06-25-2024 Cholesterol in LDL [Mass/Vol] 98 mg/dL 0-130 [facility] Lymphocytes Auto (Unsp spec) [#/Vol]Ordered By: Prieto Gong on 06-25-2024 Lymphocytes (Bld) [#/Vol] 1.33 10*3/uL 0.83-4.51 [facility] Lymphocytes/100 WBC Auto (Un sp spec)Ordered By: Prieto Gong on 06-25-2024 Lymphocytes/100 WBC (Bld) 16.9 % Low 19-41 [facility] MCV (mean corpuscular volume ) determinationOrdered By: Prieto Gong on 06-25-2024 MCV (RBC) [Entitic vol] 92.0 fL 80-94 [facility] Magnesium measurementOrdered By: Prieto Gong on 06-25-2024 Magnesium [Mass/Vol] 2.4 mg/dL 1.6-2.6 [facility] Mean corpuscular hemoglobin (MCH) determinationOrdered By: Prieto Gong on 06-25-2024 MCH (RBC) [Entitic mass] 31.1 pg 27.0-32.0 [facility] Mean corpuscular hemoglobin concentration (MCHC) determinationOrdered By: Prieto Gong on 06-25-2024 MCHC (RBC) [Mass/Vol] 33.8 g/dL 32-36 [facility] Mean platelet volume determi nationOrdered By: Prieto Gong on 06-25-2024 Platelet mean volume (Bld) [Entitic vol] 8.6 fL 6.2-12.0 [facility] Monocyte percentageOrdered B y: Prieto Gong on 06-25-2024 Monocytes/100 WBC (Bld) 9.0 % 0-10 [facility] Neutrophil percentageOrdered By: Prieto Gong on 06-25-2024 Neutrophils/100 WBC (Bld) 65.7 % 47-70 [facility] Nucleated red blood cell per centageOrdered By: Prieto Gong on 06-25-2024 Nucleated RBC/100 WBC (Bld) [Ratio] 0 % 0-5 [facility] Phosphorus measurementOrdere d By: Prieto Gong on 06-25-2024 Phosphorus Level 4.2 mg/dL 2.5-4.9 [facility] Platelet countOrdered By: Kate Gong on 06-25-2024 Platelets (Bld) [#/Vol] 267 10*3/uL 150-450 [facility] Potassium measurementOrdered By: Prieto Gong on 06-25-2024 Potassium [Moles/Vol] 3.7 mmol/L 3.5-5.1 [facility] Prothrombin Time w/INRon INR Coag (PPP) [Relative time] 1.3 {INR} Normal [facility] Comment on above: Performed By: #### L 100.0100, L300.3900, L506.1000, L500.4050, L500.4100, L501.2300, L501.4700, L501.5200, L3410.9998 ####[facility] [address] [place], [place], [id number] PT Coag (PPP) [Time] 16.2 s High 11.7-14.9 [facility] Comment on above: Performed By: #### L 100.0100, L300.3900, L506.1000, L500.4050, L500.4100, L501.2300, L501.4700, L501.5200, L3410.9998 ####[facility] [address] [place], [place], [address] Prothrombin timeOrdered By: Prieto Gong on 06-25-2024 PT Coag (PPP) [Time] 16.2 s High 11.7-14.9 [facility] RBC Auto (Bld) [#/Vol]Ordere d By: Prieto Gong on 06-25-2024 RBC (Bld) [#/Vol] 4.99 10*6/uL 4.6-6.2 [facility] Serum anion gap measurementO rdered By: Prieto Gong on 06-25-2024 Anion gap [Moles/Vol] 9 mmol/L 5-15 [facility] Serum globulin measurementOr dered By: Prieto Gong on 06-25-2024 Globulin (S) [Mass/Vol] 3.5 g/dL 2.2-4.2 [facility] Serum or plasma alanine mccarthy otransferase (ALT) measurementOrdered By: Prieto Gong on 06-25-2024 ALT [Catalytic activity/Vol] 21 U/L 16-61 [facility] Serum or plasma albumin lyly urement (mass/volume)Ordered By: Prieto Gong on 06-25-2024 Albumin [Mass/Vol] 4.2 g/dL 3.2-5.0 [facility] Serum or plasma alkaline ruby sphatase measurementOrdered By: Prieto Gong on 06-25-2024 ALP [Catalytic activity/Vol] 92 U/L 45-117 [facility] Serum or plasma calcium lyly urement (mass/volume)Ordered By: Prieto Gong on 06-25-2024 Calcium [Mass/Vol] 9.5 mg/dL 8.5-10.1 [facility] Serum or plasma cholesterol measurement (mass/volume)Ordered By: Prieto Gong on 06-25-2024 Cholesterol [Mass/Vol] 176 mg/dL <[address] [facility] Comment on above: <200 mg/dL Desirable 200-240 mg/dL Borderline >240 mg/dL High Risk Serum or plasma creatinine m easurement (mass/volume)Ordered By: Prieto Gong on 06-25-2024 Creatinine [Mass/Vol] 1.35 mg/dL High 0.70-1.30 [facility] Comment on above: The validity of the calculated GFR & GFRAA in patients over 70 years has not been determined. Clinical correlation is essential. Serum or plasma urea nitroge n measurement (mass/volume)Ordered By: Prieto Gong on 06-25-2024 Urea nitrogen [Mass/Vol] 20 mg/dL High 7-18 [facility] Sodium levelOrdered By: Melvin Gong on 06-25-2024 Sodium [Moles/Vol] 141 mmol/L 136-145 [facility] Total proteinOrdered By: Eric Gong on 06-25-2024 Protein [Mass/Vol] 7.7 g/dL 6.4-8.2 [facility] Triglycerides measurementOrd ered By: Prieto Gong on 06-25-2024 Triglyceride [Mass/Vol] 117 mg/dL <199 [facility] Comment on above: The drugs N-Acetylcy steine and Metamizole may falsely depress this assay.Serum Triglycerides Reference Interval Normal <150 mg/dL Borderline high 150 - 199 mg/dL High 200 - 499 mg/dL Very High > or = 500 mg/dL Very low density lipoprotein (VLDL) cholesterol measurementOrdered By: Prieto Gong on 06-25-2024 Very low density lipoprotein (VLDL) cholesterol measurement 23 mg/dL 5-40 [facility] VLDL Cholesterol 23 mg/dL -40 [facility] Vitamin D,25 Hydroxyon 06-25 Vitamin D 25-OH 45.9 ng/mL Normal [facility] Comment on above: Result Comment: Meghna min D 25(OH) Status Range Deficiency <20 ng/mL (50nmol/L) Insufficiency 20 - 30 ng/mL (50 - 75 nmol/L) Sufficiency 30 - 100 ng/mL (75 - 250 nmol/L) Toxicity >100 ng/mL (>250 nmol/L) Performed By: #### L 100.0100, L300.3900, L506.1000, L500.4050, L500.4100, L501.2300, L501.4700, L501.5200, L3410.9998 ####[facility] [address] [place], [address] White blood cell (WBC) count Ordered By: Prieto Gong on 06-25-2024 WBC (Bld) [#/Vol] 7.9 10*3/uL 4.4-11.0 [facility] Basic Metabolic Profile (BMP )on 06-10-2024 BUN/CRE 17.5 RATIO Normal 10-20 [facility] Comment on above: Performed By: #### L 101.9900, L500.2500, L501.3620 ####[facility] [address] [facility] [place], [address] CA,Total 9.4 mg/dL Normal 8.5-10.1 [facility] Comment on above: Performed By: #### L 101.9900, L500.2500, L501.3620 ####[facility] [address], [address] Chloride [Moles/Vol] 106 mmol/L Normal 98-107 [facility] Comment on above: Performed By: #### L 101.9900, L500.2500, L501.3620 ####[facility] [address] [place], [address] CO2 [Moles/Vol] 26.0 mmol/L Normal 21.0-32.0 [facility] Comment on above: Performed By: #### L 101.9900, L500.2500, L501.3620 ####[facility] [address] [place], [address] Creatinine [Mass/Vol] 1.26 mg/dL Normal 0.70-1.30 [facility] Comment on above: Result Comment: The validity of the calculated GFR GFRAA in patients over 70 years has not been determined. Clinical correlation is essential. Performed By: #### L 101.9900, L500.2500, L501.3620 ####[facility] [address] [place], [address] EST GFR - AA 73 mL/min Normal >60 [facility] Comment on above: Result Comment: Afri can Bangladeshi GFR Calc Performed By: #### L 101.9900, L500.2500, L501.3620 ####[facility] [address] [place], [address] GAP 6 Normal 5-15 [facility] Comment on above: Performed By: #### L 101.9900, L500.2500, L501.3620 ####[facility] [address] [place], [address] GFR/1.73 sq M.predicted among non-blacks MDRD (S/P/Bld) [Vol rate/Area] 60 mL/min/{1.73_m2} Normal >60 [facility] Comment on above: Result Comment: Non- GFR Calc Performed By: #### L 101.9900, L500.2500, L501.3620 ####[facility] [address] [place], [address] Glucose [Mass/Vol] 132 mg/dL High 74-106 [facility] Comment on above: Result Comment: Fast ing Glucose result greater than or equal to 126 mg/dL suggests DIABETES MELLITUS per A.D.A. criteria. Performed By: #### L 101.9900, L500.2500, L501.3620 ####[facility] [address] [place], [address] Potassium [Moles/Vol] 3.6 mmol/L Normal 3.5-5.1 [facility] Comment on above: Performed By: #### L 101.9900, L500.2500, L501.3620 ####[facility] [address] [place], [address] Sodium [Moles/Vol] 138 mmol/L Normal 136-145 [facility] Comment on above: Performed By: #### L 101.9900, L500.2500, L501.3620 ####[facility] [address] [place], [address] Urea nitrogen [Mass/Vol] 22 mg/dL High 7-18 [facility] Comment on above: Performed By: #### L 101.9900, L500.2500, L501.3620 ####[facility] [address] [place], [address] Blood urea nitrogen (BUN)/cr eatinine ratioOrdered By: Stefanie Dunaway on 06-10-2024 Urea nitrogen/Creatinine [Mass ratio] 17.5 mg/mg 10- [facility] CPK Total, Creatine Kinaseon 06-10-2024 CPK TOTAL 92 U/L Normal 39-308 [facility] Comment on above: Performed By: #### L 101.9900, L500.2500, L501.3620 ####[facility] [address] [place], [address] Carbon dioxide measurementOr dered By: Stefanie Dunaway on 06-10-2024 CO2 [Moles/Vol] 26.0 mmol/L 21.0-32.0 [facility] Cardiology Visit Reporton Cardiology Visit Report [facility] [address] [place] [address] OFFICE VISIT Date of Service: 06/10/24 MR#: [id number] Acct: [id number] Name: SEVERIANO HERNANDEZ Rep #: [id number] : 1955 Provider: PJ Last Age/Sex: 69/M Location: [facility] Status: Signed HPI HPI History of Present Illness Details: SEVERIANO HERNANDEZ, is a 69 M who presents to the office today for a cardiovascular outpatient follow-up. He has a history of coronary artery disease status post three-vessel bypass surgery [place] [address] Dillard at [facility] with REYES to distal of the LAD, SVG to obtuse marginal, and SVG to PDA. He also underwent PTCA/ERROL to RCA x2 in October 2017 and PTCA/ERROL to mid RAMUS on 07/27/2018. He also has a history of hypertension and hyperlipidemia. He was last in the office in 05/2022. Patient presented to [facility] on 02/20/2024 with multiple complaints. He had blood work done by his primary care doctor and it did demonstrate an elevated troponin. He also had ascites and pedal edema. He was also noted to be tachycardic in the emergency room and it was felt that it was a 2-1 atrial flutter. Patient did undergo an echocardiogram which demonstrated an ejection fraction of 10%, mildly dilated LV with moderately severe mitral insufficiency. Patient was started on carvedilol, Jardiance, Lasix, Entresto however this may need to have been held due to hypotension. He did undergo a stress test on an outpatient basis, this was abnormal with mild anterior lateral and apical ischemia with a dilated cardiomyopathy. He did undergo a diagnostic heart catheterization on 03/08/2024 which demonstrated severe disease with a patent REYES to the LAD, SVG graft obtuse marginal occluded, SVG to the right coronary and [place] coronary artery with a dilated cardiomyopathy. Control of his atrial fibrillation was recommended along with guided medical therapy for his cardiomyopathy and then to consider a prophylactic ICD. Repeat echo in 05/2024 demonstrated and EF of 10%. He has atypical right sided chest pain. He was able to walk up the office without stopping. He does not have any swelling. Intake Vital Signs 03/14/24 09:07 05/16/24 10:06/10/24 08:54 Height 6 ft 6 ft 6 ft Weight: 175 lb BMI 23.7 BP 136/84 H Blood Pressure Location Lt brachial Position Sitting Respiration 18 Pulse 82 Pulse Source Monitor Pulse Oximetry (%) 99 Intake Visit Reasons: 3 M FU Back Grinder Required: No Is patient in pain?: No Allergies pravastatin sodium (From Pravachol) Allergy (Verified 06/10/24 08:54) Unknown carvedilol (From Coreg) Adverse Reaction (Intermediate, Verified 06/10/24 08:54) diarrhea atorvastatin calcium (From Lipitor) Adverse Reaction (Verified 06/10/24 08:54) Pain in joints gemfibrozil Adverse Reaction (Verified 06/10/24 08:54) myalgia Medications ???Medication ???Instructions ???Recorded ???Confirmed ???Type aspirin 81 mg tablet,delayed 81 mg PO DAILY [facility] 06/10/24 History release (Adult Aspirin Regimen) dapagliflozin propanediol 10 mg 10 mg PO QAM #60 tabs 03/08/24 Rx tablet spironolactone 25 mg tablet 25 mg PO QDAY #90 tabs 03/08/24 Rx apixaban 5 mg tablet (Eliquis) 5 mg PO BID #60 tabs 03/25/2405/16 Rx furosemide 40 mg tablet 40 mg PO .COMPLEX #180 tabs 06/10/24 Rx carvedilol 12.5 mg tablet 6.25 mg (1/2 x 12.5 mg) PO BID #90 05/28/24 06/10/24 Rx tabs lactulose 10 gram/15 mL (15 mL) 20 g (30 mL) PO BID 30 days #1,800 06/11/24 Rx oral solution mL Have you fallen in the past year?: No PFSH Medical History Wears glasses Wrist injury Loss of consciousness Injury of back Dietary restriction Shortness of breath on exertion History of pain when walking History of edema History of echocardiogram History of stress test Cardiology follow-up encounter History of atrial fibrillation Non-smoker Coronary artery disease Hypertension Pure hypercholesterolemia Essential hypertension Atherosclerosis of coronary artery bypass graft without angina pectoris Non-ST elevation (NSTEMI) myocardial infarction White coat syndrome with hypertension RBBB Premature ventricular contraction Nonrheumatic aortic valve insufficiency Atherosclerosis of coronary artery of [place] heart without angina pectoris Non-alcoholic fatty liver disease Surgical History History of cardiac catheterization Hx of colonoscopy History of coronary artery stent placement History of esophagogastroduodenoscopy (EGD) ( 2014) H/O coronary artery bypass surgery ( 08/12/15) Family History (Reviewed 05/16/24 (more content not included)... Normal [facility] Chloride measurementOrdered By: Stefaine Dunaway on 06-10-2024 Chloride [Moles/Vol] 106 mmol/L 98-107 [facility] Erythrocyte Sed Rateon 06-10 SED RATE 12 mm/hr Normal 0-20 [facility] Comment on above: Performed By: #### L 101.9900, L500.2500, L501.4870 ####[facility] [address] [place], [address] Erythrocyte sedimentation ra teOrdered By: Stefanie Dunaway on 06-10-2024 ESR (Bld) [Velocity] 12 mm/h 0-20 [facility] Estimated glomerular filtrat ion rate (GFR) AmericanOrdered By: Stefanie Dunaway on 06-10-2024 Estimated GFR (MDRD) Amer 73 mL/min >60 [facility] Comment on above: GFR Calc Glomerular filtration rate ( GFR) estimationOrdered By: Stefanie Dunaway on 06-10-2024 Estimated GFR (MDRD) Non-Af Amer 60 mL/min >60 [facility] Comment on above: Non- GFR Calc GFR/1.73 sq M.predicted among non-blacks MDRD (S/P/Bld) [Vol rate/Area] 60 mL/min/{1.73_m2} >60 [facility] Comment on above: Non- GFR Calc Glucose measurementOrdered B y: Stefanie Dunaway on 06-10-2024 Glucose [Mass/Vol] 132 mg/dL High 74-106 [facility] Comment on above: Fasting Glucose resu lt greater than or equal to 126 mg/dL suggests DIABETES MELLITUS per A.D.A. criteria. Potassium measurementOrdered By: Stefanie Dunaway on 06-10-2024 Potassium [Moles/Vol] 3.6 mmol/L 3.5-5.1 [facility] Serum anion gap measurementO rdered By: Stefanie Dunaway on 06-10-2024 Anion gap [Moles/Vol] 6 mmol/L 5-15 [facility] Serum or plasma calcium lyly urement (mass/volume)Ordered By: Stefanie Dunaway on 06-10-2024 Calcium [Mass/Vol] 9.4 mg/dL 8.5-10.1 [facility] Serum or plasma creatinine m easurement (mass/volume)Ordered By: Stefanie Dunaway on 06-10-2024 Creatinine [Mass/Vol] 1.26 mg/dL 0.70-1.30 [facility] Comment on above: The validity of the calculated GFR & GFRAA in patients over 70 years has not been determined. Clinical correlation is essential. Serum or plasma urea nitroge n measurement (mass/volume)Ordered By: Stefanie Dunaway on 06-10-2024 Urea nitrogen [Mass/Vol] 22 mg/dL High 7-18 [facility] Sodium levelOrdered By: Santy Dunaway on 06-10-2024 Sodium [Moles/Vol] 138 mmol/L 136-145 [facility] Total creatine kinase measur ementOrdered By: Stefanie Dunaway on 06-10-2024 CK [Catalytic activity/Vol] 92 U/L 39-308 [facility] H. PYLORI STOOL AGon 025 H PYLORI STL AG Negative Normal Negative [facility] Comment on above: Result Comment: Perf ormed at: [facility] [address] [place], [place] [id number] Customer Service Sales Associate: Carlos Betancourt PhD, Phone: [phone] Performed By: #### L 3100.1950 ####[facility] [address] [place], [place], [id number] H. pylori Ag IA Ql (Stl)Orde red By: Kanwal Vines on 05-24-2024 Stool Helicobacter pylori Antigen Negative Negative [facility] Comment on above: Performed at: [facility] [address] [id number] Director: Carlos Betancourt PhD, Phone: [phone] Echo Complete W/ Contraston 05-21-2024 Echo Complete W/ Contrast [facility] [address] [facility] [place] [address] Echo Complete W/ Contrast 05/21/24 0810 MR#: [id number] Acct: [id number] Name: SEVERIANO HERNANDEZ Rep #: [id number] : 1955 69 From: Ivan Mccall MD Attending Dr: PJ King Status: REG CLI Ordering Dr: Stefanie Dunaway Date: 12/06 Location: [facility] Sex: M C Admitted: Version 2 Reason For Study: Cardiomyopathy Procedure This was a 2D Doppler, Color Flow transthoracic echocardiogram. Myocardial strain analysis was performed in this exam to aid in the assessment of cardiac function. Contrast injection was performed. Exam performed in department. Left Ventricle Mildly dilated left ventricle. Apical false tendon noted. The left ventricular ejection fraction is 10 %. There is severe global hypokinesis of the left ventricle. Right Ventricle Normal RV size. Normal systolic function. Atria Normal left atrium. Normal right atrium. Mitral Valve Bileaflet diffuse mitral valve thickening. Mild (1+) mitral valve insufficiency. Tricuspid Valve Normal tricuspid valve. Mild (1+) tricuspid valve insufficiency. Pulmonary artery systolic pressure is 34 mmHg. Aortic Valve Mild diffuse aortic valve thickening. Mild-Moderate (1-2+) eccentric aortic valve insufficiency. Pulmonic Valve Normal pulmonic valve. Trivial pulmonic valve insufficiency. Great Vessels Mildly dilated aortic root. Medication Diluted definity 1.5ml given slow IV push to enhance endocardial definition. MMode/2D Measurements Calculations LVIDd: 5.9 cm IVSd: 1.0 cm asc Aorta Diam: 3.7 cm LVIDs: 5.5 cm LVPWd: 1.1 cm RVDd: 4.6 cm FS: 7.2 % LAV(MOD-sp4): 74.6 ml LVAd ap4: 51.2 cm2 SV(MOD-sp4): 23.0 ml LVLd ap4: 9.6 cm SI(MOD-sp4): 11.7 ml/m2 EDV(MOD-sp4): 230.6 ml EDV(sp4-el): 231.5 ml LVAs ap4: 47.4 cm2 LVLs ap4: 9.4 cm ESV(MOD-sp4): 207.6 ml ESV(sp4-el): 201.8 ml EF(MOD-sp4): 10.0 % EF(sp4-el): 12.8 % SV(sp4-el): 29.6 ml LA A4 area: 25.2 cm2 LA dimension(2D): 4.3 cm RA A4 area: 20.8 cm2 TAPSE: 1.0 cm Doppler Measurements Calculations MV E max marilia: 93.1 cm/sec Lat Peak E' Marilia: 7.8 cm/sec Med Peak E' Marilia: 3.5 cm/sec E/E' lat: 11.9 E/E' med: 26.3 Ao V2 max: 118.8 cm/sec AI max marilia: 423.0 cm/sec PA V2 max: 42.6 cm/sec Ao max P.7 mmHg AI max P.6 mmHg Ao V2 mean: 81.5 cm/sec Ao mean P.0 mmHg AI dec slope: 240.5 cm/sec2 Ao V2 VTI: 19.7 cm AI P1/2t: 515.1 msec TR max marilia: 270.1 cm/sec TR max P.2 mmHg ECHO/Echo Complete W/ Contrast Interpretation Summary The left ventricular ejection fraction is 10 %. Mildly dilated left ventricle. There is severe global hypokinesis of the left ventricle. Mild (1+) mitral valve insufficiency. Mild-Moderate (1-2+) eccentric aortic valve insufficiency. The global longitudinal strain is severely abnormal. The global longitudinal strain = -5% (abnormal). Compared to previous study, the left ventricular systolic function is the same.. Ordering Physician: Stefanie Dunaway Referring Physician: Cliff Taylor Chi Performed By: Vanna Grigsby, ROLLY, RVT 05/21/24 1459 Date Ivan Mccall MD CC: Dr. Cliff Taylor MD; PJ King Date Dictated: 05/21/24809 Date Transcribed: 05/21/241457 Millinery Designer: Signed Normal [facility] EGD Reporton 05-16-2024 EGD Report [facility] Medical Records Department [address] [address] EGD Report MR#: [id number] Acct: [id number] Name: SEVERIANO HERNANDEZ Rep #: [id number] : 1955 69 From: Gerald Carroll DO PCP: Dr. Cliff Taylor MD Status:[facility] Patient Name: Severiano Hernandez Procedure Date: 05/16/2024 12:10 PM Date of : 1955 Age: 69 Procedure: Upper GI endoscopy Indications: Cirrhosis with suspected esophageal varices Providers: Gerald Carroll DO Referring MD: Cliff Taylor MD Medicines: Monitored Anesthesia Care Patient Profile: This is a 69 year old male. Refer to note in patient chart for documentation of history and physical. Patient has symptoms of chronic dyspepsia and chronic nausea. Complications: No immediate complications. Procedure: Pre-Anesthesia Assessment: - Prior to the procedure, a History and Physical was performed, and patient medications and allergies were reviewed. The patient is competent. The risks and benefits of the procedure and the sedation options and risks were discussed with the patient. All questions were answered and informed consent was obtained. Patient identification and proposed procedure were verified by the physician in the pre-procedure area. Mental Status Examination: alert and oriented. Airway Examination: normal oropharyngeal airway and neck mobility. Respiratory Examination: clear to auscultation. CV Examination: normal. Prophylactic Antibiotics: The patient does not require prophylactic antibiotics. Prior Anticoagulants: The patient has taken no anticoagulant or antiplatelet agents. ASA Grade Assessment: III - A patient with severe systemic disease. After reviewing the risks and benefits, the patient was deemed in satisfactory condition to undergo the procedure. The anesthesia plan was to use monitored anesthesia care (MAC). Immediately prior to administration of medications, the patient was re-assessed for adequacy to receive sedatives. The heart rate, respiratory rate, oxygen saturations, blood pressure, adequacy of pulmonary ventilation, and response to care were monitored throughout the procedure. The physical status of the patient was re-assessed after the procedure. After obtaining informed consent, the endoscope was passed under direct vision. Throughout the procedure, the patient's blood pressure, pulse, and oxygen saturations were monitored continuously. The gastroscope was introduced through the mouth, and advanced to the second part of duodenum. The upper GI endoscopy was accomplished without difficulty. The patient tolerated the procedure well. Scope In: 12:10:46 PM Scope Out: 12:13:23 PM Total Procedure Duration Time 0 hours 2 minutes 37 seconds Findings: The examined esophagus was normal. No gross lesions were noted in the entire examined stomach. Localized nodular mucosa was found in the duodenal bulb. Biopsies were taken with a cold forceps for histology. Verification of patient identification for the specimen was done. Estimated blood loss was minimal. Impression: - Normal esophagus. - No gross lesions in the entire stomach. - Nodular mucosa in the duodenal bulb. Biopsied. Recommendation: - Discharge patient to home. - Resume previous diet. - Continue present medications. - Await pathology results. Procedure Code(s): --- Professional --- 00272, Esophagogastroduodenoscopy, flexible, transoral; with biopsy, single or multiple CPT copyright 2021 [employer]. All rights reserved. The codes documented in this report are preliminary and upon ceramic sprayer review may be revised to meet current compliance requirements. Gerald Carroll DO 05/16/2024 12:17:36 PM This report has been signed electronically. Number of Addenda: 0 Note Initiated On: 05/16/2024 12:10 PM 05/16/24 1217 Date Gerald Carroll DO Cosigner Signature: Date (if indicated) CC: Dr. Cliff Taylor MD; Gerald Carroll DO Date Dictated: 05/16/24 1210 Date Transcribed: Millinery Designer: TYRONE Signed [facility] MR/POSTOP.[facility] 05-16-2024 MR/POSTOP.[facility] Medical Records Department [address] [place] [address] Anesthesia Postop Eval I 05/16/24 1222 MR#: [id number] Acct: [id number] Name: SEVERIANO HERNANDEZ Rep #: [id number] : 1955 69 From: Michael Delgadillo PCP: Dr. Cliff Taylor MD Status:REG [facility] Y Race: C Location: [place] [address] Anesthesia: Postop Eval I Current Vital Signs Temperature: 97.4 F Pulse Rate: 84 Blood Pressure: 78/56 Respiratory Rate: 14 Pulse Ox: 99 Oxygen Delivery Method: Room Air Assessment Airway patent: Yes Spontaneous unlabored respirations: Yes Mental status: Asleep nausea: No Vomiting: No Anesthesia Complication: No Fluid Hydration Crystalloid volume administer (ml): 20 Total IV fluid infused: 20 Progress Note Anesthesia document: Postop Eval 1 completed: Yes 05/16/24 1223 Date Michael Gaspar Signature: Date CC: Signed Normal [facility] MR/DIYWRWZM2rm 05-16-2024 MR/POSTOPAN2 [facility] Medical Records Department [address] [facility] [place] [address] Anesthesia Postop Eval II 05/16/24 1343 MR#: [id number] Acct: [id number] Name: SEVERIANO HERNANDEZ Rep #: [id number] : 1955 69 From: Vick Vaca MD PCP: Dr. Cliff Taylor MD Status:[facility] Y Race: C Location: [place] Anesthesia Postop Eval I Sum Postop Eval Completion status Anesthesia document: Postop Eval 1 completed: Yes Anesthesia Postop Eval I Summary Anesthesia Postop Eval I Summary: Anesthesia Postop Eval I: Assessment Summary Airway patent Yes 05/16/24 12:23 [email or web address] Spontaneous unlabored Yes 05/16/24 12:23 [email or web address] respirations Mental status Asleep 05/16/24 12:23 [email or web address] nausea No 05/16/24 12:23 [email or web address] Vomiting No 05/16/24 12:23 [email or web address] Anesthesia Postop Eval I: Fluid Summary Crystalloid volume administer 20 05/16/24 12:23 [email or web address] (ml) Colloids volume administered ( ml) Blood Product volume administered (ml) Total IV fluid infused 20 05/16/24 12:23 [email or web address] Anesthesia Postop Eval I: Summary Notes Anesthesia Complication No 05/16/24 12:23 [email or web address] Anesthesia Complication Comment: Post-operative progress note Anesthesia: Postop Eval II Evaluation Mental status: Awake and Calm Pain Level: 0 nausea: No Vomiting: No Complications Anesthesia Complication: No 05/16/24 1344 Date Vick Gaspar Signature: Date CC: Signed Normal [facility] Surgery Specimen Level Beka 05-16-2024 Surgery Specimen Level IV Patient Age/Sex Location Account Attending Physician SEVERIANO HERNANDEZ 69/M EN [id number] Gerald Carroll DO Specimen: [id number] Received: 05/16/24 Status: JACKIE Thompson Num: [id number] Spec Type: EGD BIOPSY Saira Dr: Gerald Carroll, HEADER OPERATION: EGD, biopsy PRE-OP DIAGNOSIS: Cirrhosis of liver TISSUE SUBMITTED: Duodenum biopsy MICROSCOPIC DIAGNOSIS Duodenum, biopsy: Fragments of duodenal mucosa with moderate chronic inflammation and extensive gastric metaplasia. See comment. mr 05/20/2024 COMMENT Clinical correlation and appropriate follow up are necessary. MICROSCOPIC DESCRIPTION Slides are reviewed. GROSS DESCRIPTION Received in fixative is one container labeled with the patient's name and designated Duodenum biopsy. The specimen consists of multiple irregular fragments of light solorzano soft tissue that in aggregate measure 0.9 x 0.2 x 0.1 cm. The specimen is totally submitted in one cassette. MS/mr 05/17/2024 TC:3 CPT:35816 Patient Age/Sex Location Account Attending Physician SEVERIANO HERNANDEZ/Adarsh EN [id number] Gerald Carroll DO Signed (signature on file) Dr. Nadir Reddy MD 05/20/24 1107 Normal [facility] Comment on above: Performed By: #### P SUIV ####[facility] [address] [facility] [place], [address] MR/SAURABHon 05-13-2024 MR/SAURABH [facility] Medical Records Department [address] [place] [address] PAT - Anesthesia 05/13/24 1416 MR#: [id number] Acct: [id number] Name: SEVERIANO HERNANDEZ Rep #: [id number] : 1955 69 From: Vick Vaca MD PCP: Dr. Cliff Taylor MD Status:PRE [facility] Y Race: C Location: EN Pre-Assessment Diagnosis/Proposed Procedure Planned Operative Procedure(s): EGD Anesthesia History Anesthesia History - telehealth case manager: Anesthesia History - telehealth case manager Hx Hospitalization Yes: 02/2024 HEART ISSUES/ 05/13/24 11:39 PARACENTIS OF ABD. Any Problems With Anesthesia No 05/13/24 11:39 Cholinesterase deficiency No 05/13/24 11:39 You/Your Family Experience No 05/13/24 11:39 fever (hyperthermia) with Relationship Recent Exposure to Contagious Disease Does patient have nerve No 05/13/24 11:39 stimulator Patient instructed to have device shut off --Does patient have Pacemaker or ICD? When Was Last Pacemaker Check QUESTION #4 FULL TEXT: You/Your Family Experience fever (hyperthermia) with Anesthesia Last Oral Intake Last Oral intake: Last Oral Intake NPO since Meds taken in AM with sips of water? Meds patient instructed to take am of surgery PONV PONV - telehealth case manager: PONV - telehealth case manager Female No 05/13/24 11:39 HX of Motion Sickness No 05/13/24 11:39 HX of N/V After Surgery No 05/13/24 11:39 Non-Smoker Yes 05/13/24 11:39 Duration of Surgery greater No 05/13/24 11:39 than 60 minutes Number of Risk Factors 1 05/13/24 11:39 PONV Score Low Risk 05/13/24 11:39 Height Weight Height Weight: Anesthesia: Height Weight Height 6 ft 03/14/24 09:07 Respiratory Assessment Respiratory Assessment - telehealth case manager: Respiratory Tract Infection Hx - telehealth case manager Hx Respiratory Tract Infection No 05/13/24 11:39 STOP Sleep Apnea STOP Sleep Apnea - telehealth case manager: STOP Sleep Apnea - telehealth case manager Hx Hypertension No 05/13/24 11:39 Hx Sleep Apnea No 05/13/24 11:39 CPAP BIPAP Do you snore loudly (louder No 05/13/24 11:39 than talking or can be heard Do you often feel tired/ Yes 05/13/24 11:39 fatigued/ sleepy during daytime? Has anyone observed you stop No 05/13/24 11:39 breathing during sleep? STOP Results Negative 05/13/24 11:39 QUESTION #5 FULL TEXT : Do you snore loudly (louder than talking or can be heard through closed doors)? Tobacco Use History Tobacco Use History - telehealth case manager: Tobacco Use History - telehealth case manager Tobacco Use Smoking Status Never smoker 05/13/24 11:39 Hx Tobacco Use No 05/13/24 11:39 Years Smoking Packs Smoked per Day Smoking Cessation Date was within the last 15 years Hx Smoking Cessation Date Hx Smoking Cessation Counseling Hematologic Medial History Hematologic Hx - telehealth case manager: Hematologic Medical Hx - irrigator head Hx of Blood Transfusion No 05/13/24 11:39 Hx of Transfusion in last 3 No 05/13/24 11:39 Months Date of Last Transfusion (if within last 3 months) Ever experience any problems No 05/13/24 11:39 with transfusion(s)? Specify any problems Hx of Preganancy in last 3 N/A 05/13/24 11:39 Months Nurse Filling Out Transfusion DSCHRIBER 05/13/24 11:39 Questions: Date: 05/13/24 05/13/24 11:39 Time: 11:42 05/13/24 11:39 Patient unable to answer at this time (ie. confused, unrespo /Reproduction History /Reproductive History - telehealth case manager: /Reproductive Hx- telehealth case manager Hx Now No 05/13/24 11:39 Gestational Age (in weeks): EDC: Hx Hx Para Hx Section SAB No 05/13/24 11:39 [facility] Medical History (Updated 05/13/24 @ 12:17 by Melanie Mcdaniel) Wears glasses Wrist injury Loss of consciousness Injury of back Dietary restriction Shortness of breath on exertion History of pain when walking History of edema History of echocardiogram History of stress test Cardiology follow-up encounter History of atrial fibrillation Non-smoker Coronary artery disease Hypertension Pure hypercholesterolemia Essential hypertension Atherosclerosis of coronary artery bypass graft without angina pectoris Non-ST elevation (NSTEMI) myocardial infarction White coat syndrome with hypertension RBBB Premature ventricular contraction Nonrheumatic aortic valve insufficiency Atherosclerosis of coronary artery of [place] heart without angina pectoris Non-alcoholic fatty liver disease Home Medications ???Medication ???Instructions ???Recorded ???Last Taken ???Type aspirin 81 mg tablet,delayed 81 mg PO DAILY heart health 05/24/17 03/08/24 His (more content not included)... Normal [facility] Albumin to globulin ratioOrd ered By: Stefanie Dunaway on 04-02-2024 Albumin/Globulin [Mass ratio] 0.9 {ratio} 0.9-2.4 [facility] Bilirubin, totalOrdered By: Stefanie Dunaway on 04-02-2024 Bilirubin [Mass/Vol] 1.80 mg/dL High 0.20-1.00 [facility] Comment on above: For patients on eltr ombopag therapy, use of Dimension [place] TBIL is not recommended. Blood urea nitrogen (BUN)/cr eatinine ratioOrdered By: Stefanie Dunaway on 04-02-2024 Urea nitrogen/Creatinine [Mass ratio] 16.7 mg/mg 03-03 [facility] Carbon dioxide measurementOr dered By: Stefanie Dunaway on 04-02-2024 CO2 [Moles/Vol] 27.0 mmol/L 21.0-32.0 [facility] Chloride measurementOrdered By: Stefanie Dunaway on 04-02-2024 Chloride [Moles/Vol] 106 mmol/L 98-107 [facility] Comprehensive Metabolic Prof ilon 04-02-2024 Albumin [Mass/Vol] 3.9 g/dL Normal 3.2-5.0 [facility] Comment on above: Performed By: #### L 500.4050 ####[facility] [address] [place], [address] Albumin/Globulin [Mass ratio] 0.9 {ratio} Normal 0.9-2.4 [facility] Comment on above: Performed By: #### L 500.4050 ####[facility] [address] [place], [address] ALK P 149 U/L High 45-117 [facility] Comment on above: Performed By: #### L 500.4050 ####[facility] [address] [place], [address] ALT [Catalytic activity/Vol] 23 U/L Normal 16-61 [facility] Comment on above: Performed By: #### L 500.4050 ####[facility] [address] [place], [address] AST [Catalytic activity/Vol] 14 U/L Low 15-37 [facility] Comment on above: Performed By: #### L 500.4050 ####[facility] [address] [place], [address] Bilirubin [Mass/Vol] 1.80 mg/dL High 0.20-1.00 [facility] Comment on above: Result Comment: For patients on eltrombopag therapy, use of Dimension [place] TBIL is not recommended. Performed By: #### L 500.4050 ####[facility] [address] [place], [address] BUN/CRE 16.7 RATIO Normal 10-20 [facility] Comment on above: Performed By: #### L 500.4050 ####[facility] [address] [place], [address] CA,Total 9.3 mg/dL Normal 8.5-10.1 [facility] Comment on above: Performed By: #### L 500.4050 ####[facility] [address] [place], [address] Chloride [Moles/Vol] 106 mmol/L Normal 98-107 [facility] Comment on above: Performed By: #### L 500.4050 ####[facility] [address] [place], [address] CO2 [Moles/Vol] 27.0 mmol/L Normal 21.0-32.0 [facility] Comment on above: Performed By: #### L 500.4050 ####[facility] [address] [place], [address] Creatinine [Mass/Vol] 1.20 mg/dL Normal 0.70-1.30 [facility] Comment on above: Result Comment: The validity of the calculated GFR GFRAA in patients over 70 years has not been determined. Clinical correlation is essential. Performed By: #### L 500.4050 ####[facility] [address] [place], [address] EST GFR - AA 77 mL/min Normal >60 [facility] Comment on above: Result Comment: Afri can [employer] GFR Calc Performed By: #### L 500.4050 ####[facility] [address] [place], [address] GAP 6 Normal 5-15 [facility] Comment on above: Performed By: #### L 500.4050 ####[facility] [address] [place], [address] GFR/1.73 sq M.predicted among non-blacks MDRD (S/P/Bld) [Vol rate/Area] 63 mL/min/{1.73_m2} Normal >60 [facility] Comment on above: Result Comment: Non- GFR Calc Performed By: #### L 500.4050 ####[facility] [address] [place], [address] Globulin (S) [Mass/Vol] 4.3 g/dL High 2.2-4.2 [facility] Comment on above: Performed By: #### L 500.4050 ####[facility] [address] [place], [address] Glucose [Mass/Vol] 101 mg/dL Normal 74-106 [facility] Comment on above: Result Comment: Fast ing Glucose result from 100 to 125 mg/dL suggests IMPAIRED HOMEOSTASIS per A.D.A. criteria. Performed By: #### L 500.4050 ####[facility] [address] [place], [address] Potassium [Moles/Vol] 3.8 mmol/L Normal 3.5-5.1 [facility] Comment on above: Performed By: #### L 500.4050 ####[facility] [address] [place], [address] Sodium [Moles/Vol] 139 mmol/L Normal 136-145 [facility] Comment on above: Performed By: #### L 500.4050 ####[facility] [address] [place], [address] T PROT 8.2 g/dL Normal 6.4-8.2 [facility] Comment on above: Performed By: #### L 500.4050 ####[facility] [address] [place], [address] Urea nitrogen [Mass/Vol] 20 mg/dL High 7-18 [facility] Comment on above: Performed By: #### L 500.4050 ####[facility] [address] [place], [address] Estimated glomerular filtrat ion rate (GFR) AmericanOrdered By: Stefanie Dunaway on 04-02-2024 Estimated GFR (MDRD) Amer 77 mL/min >60 [facility] Comment on above: GFR Calc Glomerular filtration rate ( GFR) estimationOrdered By: Stefanie Dnuaway on 04-02-2024 Estimated GFR (MDRD) Non-Af Amer 63 mL/min >60 [facility] Comment on above: Non- GFR Calc Glucose measurementOrdered B y: Stefanie Dunaway on 04-02-2024 Glucose [Mass/Vol] 101 mg/dL 74-106 [facility] Comment on above: Fasting Glucose resu lt from 100 to 125 mg/dL suggests IMPAIRED HOMEOSTASIS per A.D.A. criteria. Laboratory - Chemistry and C hemistry - challengeOrdered By: Stefanie Dunaway on 04-02-2024 AST [Catalytic activity/Vol] 14 U/L Low 15-37 [facility] Potassium measurementOrdered By: Stefanie Dunaway on 04-02-2024 Potassium [Moles/Vol] 3.8 mmol/L 3.5-5.1 [facility] Serum anion gap measurementO rdered By: Stefanie Dunaway on 04-02-2024 Anion gap [Moles/Vol] 6 mmol/L 5-15 [facility] Serum globulin measurementOr dered By: Stefanie Dunaway on 04-02-2024 Globulin (S) [Mass/Vol] 4.3 g/dL High 2.2-4.2 [facility] Serum or plasma alanine mccarthy otransferase (ALT) measurementOrdered By: Stefanie Dunaway on 04-02-2024 ALT [Catalytic activity/Vol] 23 U/L 16-61 [facility] Serum or plasma albumin lyly urement (mass/volume)Ordered By: Stefanie Dunaway on 04-02-2024 Albumin [Mass/Vol] 3.9 g/dL 3.2-5.0 [facility] Serum or plasma alkaline ruby sphatase measurementOrdered By: Stefanie Dunaway on 04-02-2024 ALP [Catalytic activity/Vol] 149 U/L High 45-117 [facility] Serum or plasma calcium lyly urement (mass/volume)Ordered By: Stefanie Dunaway on 04-02-2024 Calcium [Mass/Vol] 9.3 mg/dL 8.5-10.1 [facility] Serum or plasma creatinine m easurement (mass/volume)Ordered By: Stefanie Dunaway on 04-02-2024 Creatinine [Mass/Vol] 1.20 mg/dL 0.70-1.30 [facility] Comment on above: The validity of the calculated GFR & GFRAA in patients over 70 years has not been determined. Clinical correlation is essential. Serum or plasma urea nitroge n measurement (mass/volume)Ordered By: Stefanie Dunaway on 04-02-2024 Urea nitrogen [Mass/Vol] 20 mg/dL High 7-18 [facility] Sodium levelOrdered By: Santy Dunaway on 04-02-2024 Sodium [Moles/Vol] 139 mmol/L 136-145 [facility] Total proteinOrdered By: Agustin mahendra Gume on 04-02-2024 Protein [Mass/Vol] 8.2 g/dL 6.4-8.2 [facility] Bilirubin, Directon 03-26-20 24 Bilirubin.direct [Mass/Vol] 0.67 mg/dL High 0.00-0.30 [facility] Comment on above: Performed By: #### L 100.0100, L300.3900, L500.4050, L501.4700 ####[facility] [address] [place], [place], [id number]) CBC W/Diff, Automatedon 03-15 Absolute Lymph 0.78 X10 3/uL Low 0.83-4.51 [facility] Comment on above: Performed By: #### L 100.0100, L300.3900, L500.4050, L501.4700 ####[facility] [address] [place], [address] Absolute Neut 3.8 X10 3/uL Normal 2.0-7.7 [facility] Comment on above: Performed By: #### L 100.0100, L300.3900, L500.4050, L501.4700 ####[facility] [address] [place], [address] Basophils/100 WBC (Bld) 1.1 % High 0-1 [facility] Comment on above: Performed By: #### L 100.0100, L300.3900, L500.4050, L501.4700 ####[facility] [address] [place], [address] Eosinophils/100 WBC (Bld) 10.4 % High 0-5 [facility] Comment on above: Performed By: #### L 100.0100, L300.3900, L500.4050, L501.4700 ####[facility] [address] [place], [address] Erythrocyte distribution width (RBC) [Ratio] 14.8 % High 11.6-14.6 [facility] Comment on above: Performed By: #### L 100.0100, L300.3900, L500.4050, L501.4700 ####[facility] [address] [place], [address] Hematocrit (Bld) [Volume fraction] 42.4 % Normal 40-54 [facility] Comment on above: Performed By: #### L 100.0100, L300.3900, L500.4050, L501.4700 ####[facility] [address] [place], [address] Hemoglobin (Bld) [Mass/Vol] 13.4 g/dL Normal 13.0-16.5 [facility] Comment on above: Performed By: #### L 100.0100, L300.3900, L500.4050, L501.4700 ####[facility] [address] [place], [address] IG% 0.400 Normal 0.0-0.9 [facility] Comment on above: Result Comment: IG% - Immature Granulocytes (promyelocytes, myelocytes and metamyelocytes) > 1% indicates that a LEFT SHIFT is Present. Performed By: #### L 100.0100, L300.3900, L500.4050, L501.4700 ####[facility] [address] [place], [address] Lymphocytes/100 WBC (Bld) 13.7 % Low 19-41 [facility] Comment on above: Performed By: #### L 100.0100, L300.3900, L500.4050, L501.4700 ####[facility] [address] [place], [address] MCH (RBC) [Entitic mass] 31.1 pg Normal 27.0-32.0 [facility] Comment on above: Performed By: #### L 100.0100, L300.3900, L500.4050, L501.4700 ####[facility] [address] [place], [address] MCHC (RBC) [Mass/Vol] 31.6 g/dL Low 32-36 [facility] Comment on above: Performed By: #### L 100.0100, L300.3900, L500.4050, L501.4700 ####[facility] [address] [place], [address] MCV (RBC) [Entitic vol] 98.4 fL High 80-94 [facility] Comment on above: Performed By: #### L 100.0100, L300.3900, L500.4050, L501.4700 ####[facility] [address] [place], [address] Monocytes/100 WBC (Bld) 7.0 % Normal 0-10 [facility] Comment on above: Performed By: #### L 100.0100, L300.3900, L500.4050, L501.4700 ####[facility] [address] [place], [address] Neutrophils/100 WBC (Bld) 67.4 % Normal 47-70 [facility] Comment on above: Performed By: #### L 100.0100, L300.3900, L500.4050, L501.4700 ####[facility] [address] [place], [address] Nucleated RBC (Bld) [#/Vol] 0 10*3/uL Normal 0-5 [facility] Comment on above: Performed By: #### L 100.0100, L300.3900, L500.4050, L501.4700 ####[facility] [address] [place], [address] Platelet mean volume (Bld) [Entitic vol] 8.2 fL Normal 6.2-12.0 [facility] Comment on above: Performed By: #### L 100.0100, L300.3900, L500.4050, L501.4700 ####[facility] [address] [place], [address] Platelets (Bld) [#/Vol] 277 10*3/uL Normal 150-450 [facility] Comment on above: Performed By: #### L 100.0100, L300.3900, L500.4050, L501.4700 ####[facility] [address] [place], [address] RBC (Bld) [#/Vol] 4.31 10*6/uL Low 4.6-6.2 [facility] Comment on above: Performed By: #### L 100.0100, L300.3900, L500.4050, L501.4700 ####[facility] [address] [place], [address] RDW SD 54.0 fl High 35.1-43.9 [facility] Comment on above: Performed By: #### L 100.0100, L300.3900, L500.4050, L501.4700 ####[facility] [address] [place], [address] WBC (Bld) [#/Vol] 5.7 10*3/uL Normal 4.4-11.0 [facility] Comment on above: Performed By: #### L 100.0100, L300.3900, L500.4050, L501.4700 ####[facility] [address] [place], [address] Comprehensive Metabolic Prof ilon 03-26-2024 Albumin [Mass/Vol] 3.6 g/dL Normal 3.2-5.0 [facility] Comment on above: Performed By: #### L 100.0100, L300.3900, L500.4050, L501.4700 ####[facility] [address] [place], [address] Albumin/Globulin [Mass ratio] 0.8 {ratio} Low 0.9-2.4 [facility] Comment on above: Performed By: #### L 100.0100, L300.3900, L500.4050, L501.4700 ####[facility] [address] [place], [address] ALK P 142 U/L High 45-117 [facility] Comment on above: Performed By: #### L 100.0100, L300.3900, L500.4050, L501.4700 ####[facility] [address] [place], [address] ALT [Catalytic activity/Vol] 20 U/L Normal 16-61 [facility] Comment on above: Performed By: #### L 100.0100, L300.3900, L500.4050, L501.4700 ####[facility] [address], [address] AST [Catalytic activity/Vol] 18 U/L Normal 15-37 [facility] Comment on above: Performed By: #### L 100.0100, L300.3900, L500.4050, L501.4700 ####[facility] [address] [place], [address] Bilirubin [Mass/Vol] 1.80 mg/dL High 0.20-1.00 [facility] Comment on above: Result Comment: For patients on eltrombopag therapy, use of Dimension [place] TBIL is not recommended. Performed By: #### L 100.0100, L300.3900, L500.4050, L501.4700 ####[facility] [address] [place], [address] BUN/CRE 18.8 RATIO Normal 10-20 [facility] Comment on above: Performed By: #### L 100.0100, L300.3900, L500.4050, L501.4700 ####[facility] [address] [place], [address] CA,Total 9.2 mg/dL Normal 8.5-10.1 [facility] Comment on above: Performed By: #### L 100.0100, L300.3900, L500.4050, L501.4700 ####[facility] [address] [place], [address] Chloride [Moles/Vol] 106 mmol/L Normal 98-107 [facility] Comment on above: Performed By: #### L 100.0100, L300.3900, L500.4050, L501.4700 ####[facility] [address] [place], [address] CO2 [Moles/Vol] 28.0 mmol/L Normal 21.0-32.0 [facility] Comment on above: Performed By: #### L 100.0100, L300.3900, L500.4050, L501.4700 ####[facility] [address] [place], [address] Creatinine [Mass/Vol] 1.28 mg/dL Normal 0.70-1.30 [facility] Comment on above: Result Comment: The validity of the calculated GFR GFRAA in patients over 70 years has not been determined. Clinical correlation is essential. Performed By: #### L 100.0100, L300.3900, L500.4050, L501.4700 ####[facility] [address] [place], [address] EST GFR - AA 71 mL/min Normal >60 [facility] Comment on above: Result Comment: Afri can Bangl[place] GFR Calc Performed By: #### L 100.0100, L300.3900, L500.4050, L501.4700 ####[facility] [address] [place], [address] GAP 6 Normal 5-15 [facility] Comment on above: Performed By: #### L 100.0100, L300.3900, L500.4050, L501.4700 ####[facility] [address] [place], [address] GFR/1.73 sq M.predicted among non-blacks MDRD (S/P/Bld) [Vol rate/Area] 59 mL/min/{1.73_m2} Low >60 [facility] Comment on above: Result Comment: Non- GFR Calc Performed By: #### L 100.0100, L300.3900, L500.4050, L501.4700 ####[facility] [address] [place], [address] Globulin (S) [Mass/Vol] 4.4 g/dL High 2.2-4.2 [facility] Comment on above: Performed By: #### L 100.0100, L300.3900, L500.4050, L501.4700 ####[facility] [address] [place], [address] Glucose [Mass/Vol] 113 mg/dL High 74-106 [facility] Comment on above: Result Comment: Fast ing Glucose result from 100 to 125 mg/dL suggests IMPAIRED HOMEOSTASIS per A.D.A. criteria. Performed By: #### L 100.0100, L300.3900, L500.4050, L501.4700 ####[facility] [address] [place], [address] Potassium [Moles/Vol] 4.1 mmol/L Normal 3.5-5.1 [facility] Comment on above: Performed By: #### L 100.0100, L300.3900, L500.4050, L501.4700 ####[facility] [address] [place], [address] Sodium [Moles/Vol] 140 mmol/L Normal 136-145 [facility] Comment on above: Performed By: #### L 100.0100, L300.3900, L500.4050, L501.4700 ####[facility] [address] [place], [address] T PROT 8.0 g/dL Normal 6.4-8.2 [facility] Comment on above: Performed By: #### L 100.0100, L300.3900, L500.4050, L501.4700 ####[facility] [address] [place], [address] Urea nitrogen [Mass/Vol] 24 mg/dL High 7-18 [facility] Comment on above: Performed By: #### L 100.0100, L300.3900, L500.4050, L501.4700 ####[facility] [address] [place], [address] Gastroenterology Visit Repor ton 03-26-2024 Gastroenterology Visit Report [facility] Gastroenterology [address] [place] [address] OFFICE VISIT Date of Service: 03/26/24 MR#: [id number] Acct: [id number] Name: SEVERIANO HERNANDEZ Rep #: [id number] 1 : 1955 Provider: PJ Graff Age/Sex: 69/M Location: [facility] [place] [facility] Status: Signed Intake Vital Signs 02/21/24 16:28 02/24/24 15:46 03/14/24 09:07 Height 6 ft 6 ft 6 ft Intake Visit Reasons: Hospital FU Chief Complaint: hospital f/u Allergies pravastatin sodium (From Pravachol) Allergy (Verified 03/14/24 09:07) Unknown carvedilol (From Coreg) Adverse Reaction (Intermediate, Verified 03/14/24 09:07) diarrhea atorvastatin calcium (From Lipitor) Adverse Reaction (Verified 03/14/24 09:07) Pain in joints gemfibrozil Adverse Reaction (Verified 03/14/24 09:07) myalgia Medications ???Medication ???Instructions ???Recorded ???Confirmed ???Type aspirin 81 mg tablet,delayed 81 mg PO DAILY [facility] 05/24/17 03/14/24 History release (Adult Aspirin Regimen) furosemide 40 mg tablet 40 mg PO BIDLX 30 days #60 tabs 02/23/24 03/14/24 Rx carvedilol 12.5 mg tablet 12.5 mg PO BID #60 tabs 03/08/24 03/14/24 Rx dapagliflozin propanediol 10 mg 10 mg PO QAM #60 tabs 03/08/24 03/14/24 Rx tablet spironolactone 25 mg tablet 25 mg PO QDAY #90 tabs 03/08/24 03/14/24 Rx apixaban 5 mg tablet (Eliquis) 5 mg PO BID #60 tabs 03/25/24 Rx lactulose 10 gram/15 mL (15 mL) 20 g (30 mL) PO BID #600 mL 03/26/24 03/26/24 Rx oral solution Have you fallen in the past year?: No Nurse's Note: OV 03.26.24 Pt here for hospital f/u. Elevated liver enzymes. Reports last colonoscopy and EGD about 10 yrs ago. States BM are normal for him, and has extreme fatigue. Denies pain, blood in stool, N/V/C/D. [facility] Medical History Kidney stones Non-smoker Coronary artery disease Hypertension Pure hypercholesterolemia Essential hypertension Atherosclerosis of coronary artery bypass graft without angina pectoris Non-ST elevation (NSTEMI) myocardial infarction White coat syndrome with hypertension RBBB Premature ventricular contraction Nonrheumatic aortic valve insufficiency Atherosclerosis of coronary artery of [place] heart without angina pectoris Non-alcoholic fatty liver disease Surgical History History of coronary artery stent placement History of esophagogastroduodenoscopy (EGD) ( 2014) H/O coronary artery bypass surgery ( 08/12/15) Family History Mother CAD (coronary artery disease) Hypertension Grandmother Myocardial infarction Social History Smoking Status: Never smoker alcohol intake: current details: rare substance use type: does not use HPI HPI Chief Complaint: hospital f/u Details: SEVERIANO HERNANDEZ, is a 69 M who presents to the office today for hospital f/u. 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 He underwent liver biopsy which showed early cirrhosis. He had paracentesis with removal of 8 liters. MELD score of 15. Since then he has underwent cardiac catheterization and had some issues with carvedilol which sent him back to hospital. OV 03.26.24 Pt has been doing ok. He feels his abdomen is no longer distended w/ the diuretic therapy. He has no abdominal pain, n/v, constipation, diarrhea, jaundice, itchy skin or confusion. ROS Const Constitutional: Positive for fatigue and weight change; No fever(s) ENT ENT: No difficulty swallowing Gastro GI: No abdominal pain, belching, bloating, change in bowel habits, change in stool character, coffee ground emesis, constipation, cramping, diarrhea, heartburn, difficulty swallowing, feeling full early, excessive flatus, incontinent of stools, Vomiting blood/hematemesis, Blood in stool, loose stools, Black,tarry stools, nausea/dyspepsia, pain with swallowing, vomiting or other Musc Musculoskeletal: Positive for joint pain Skin Skin: No yellowing of the eye or itchy eyes Psych Psychiatric: No anxiety and No depression Endo Endocrine: Positive for fatigue and weight change Aller/Imm Allergy/Immunologic: No itchy eyes Taco/Lymp Hematologic/Lymphatic: No easy bleeding or easy bruising Assessment and Plan Assessment and Plan (1) Cirrhosis of liver: Status: Acute Qualifiers: Hepatic cirrhosis type: unspecified hepatic cirrhosis Ascites presence: with ascites Qualified Code(s): K74.60 - Unspecified cirrhosis of liver; R18.8 - Other ascites Plan: This is a 69 to male pt here today for hospital f/u. He was hospitalized for cardiac issues in February (more content not included)... Normal [facility] Prothrombin Time w/INRon INR Coag (PPP) [Relative time] 1.4 {INR} Normal [facility] Comment on above: Performed By: #### L 100.0100, L300.3900, L500.4050, L501.4700 ####[facility] [address] [place], [place], [id number] PT Coag (PPP) [Time] 17.3 s High 11.7-14.9 [facility] Comment on above: Performed By: #### L 100.0100, L300.3900, L500.4050, L501.4700 ####[facility] [address] [place], [place], [id number] Cardiology Visit Reporton Cardiology Visit Report [facility] [address] [place], [place] [address] OFFICE VISIT Date of Service: 03/14/24 MR#: [id number] Acct: [id number] Name: SEVERIANO HERNANDEZ Rep #: [id number] : 1955 Provider: PJ Last Age/Sex: 69/M Location: [facility] [place] Status: Signed HPI HPI History of Present Illness Details: SEVERIANO HERNANDEZ, is a 69 M who presents to the office today for a cardiovascular outpatient follow-up. He has a history of coronary artery disease status post three-vessel bypass surgery [place] [address] Dillard at [facility] with REYES to distal of the LAD, SVG to obtuse marginal, and SVG to PDA. He also underwent PTCA/ERROL to RCA x2 in October 2017 and PTCA/ERROL to mid RAMUS on 07/27/2018. He also has a history of hypertension and hyperlipidemia. He was last in the office in 05/2022. Patient presented to [facility] on 02/20/2024 with multiple complaints. He had blood work done by his primary care doctor and it did demonstrate an elevated troponin. He also had ascites and pedal edema. He was also noted to be tachycardic in the emergency room and it was felt that it was a 2-1 atrial flutter. Patient did undergo an echocardiogram which demonstrated an ejection fraction of 10%, mildly dilated LV with moderately severe mitral insufficiency. Patient was started on carvedilol, Jardiance, Lasix, Entresto however this may need to have been held due to hypotension. He did undergo a stress test on an outpatient basis, this was abnormal with mild anterior lateral and apical ischemia with a dilated cardiomyopathy. He did undergo a diagnostic heart catheterization on 03/08/2024 which demonstrated severe disease with a patent REYES to the LAD, SVG graft obtuse marginal occluded, SVG to the right coronary and [place] coronary artery with a dilated cardiomyopathy. Control of his atrial fibrillation was recommended along with guided medical therapy for his cardiomyopathy and then to consider a prophylactic ICD. Pt is still having issues with his swelling. He is SOB with exertion. He was able to walk up to the office without stopping. He does not have any lightheadedness/dizziness. He does not have any palpitations. He does need to sleep with a wedge, this is not necessarily new. He does initially have orthopnea but then is able to settle down. Bp is lower at home. Intake Vital Signs 02/21/24 16:28 03/08/24 07:30 03/14/24 09:07 03/14/24 09:45 Height 6 ft 6 ft 6 ft Weight: 198 lb BMI 26.8 BP 126/82 H 110/70 Blood Pressure Location Lt brachial Position Sitting Respiration 18 Pulse 74 Pulse Source Monitor Pulse Oximetry (%) 97 Intake Visit Reasons: S/P [facility] 02/22 Back Grinder Required: No Is patient in pain?: No Allergies pravastatin sodium (From Pravachol) Allergy (Verified 03/14/24 09:07) Unknown carvedilol (From Coreg) Adverse Reaction (Intermediate, Verified 03/14/24 09:07) diarrhea atorvastatin calcium (From Lipitor) Adverse Reaction (Verified 03/14/24 09:07) Pain in joints gemfibrozil Adverse Reaction (Verified 03/14/24 09:07) myalgia Medications ???Medication ???Instructions ???Recorded ???Confirmed ???Type aspirin 81 mg tablet,delayed 81 mg PO DAILY [facility] 05/24/17 03/14/24 History release (Adult Aspirin Regimen) apixaban 5 mg tablet (Eliquis) 5 mg PO BID #60 tabs 02/23/24 03/14/24 Rx furosemide 40 mg tablet 40 mg PO BIDLX 30 days #60 tabs 02/23/24 03/14/24 Rx carvedilol 12.5 mg tablet 12.5 mg PO BID #60 tabs 03/08/24 03/14/24 Rx dapagliflozin propanediol 10 mg 10 mg PO QAM #60 tabs 03/08/24 03/14/24 Rx tablet spironolactone 25 mg tablet 25 mg PO QDAY #90 tabs 03/08/24 03/14/24 Rx Have you fallen in the past year?: No PFSH Medical History Kidney stones Non-smoker Coronary artery disease Hypertension Pure hypercholesterolemia Essential hypertension Atherosclerosis of coronary artery bypass graft without angina pectoris Non-ST elevation (NSTEMI) myocardial infarction White coat syndrome with hypertension RBBB Premature ventricular contraction Nonrheumatic aortic valve insufficiency Atherosclerosis of coronary artery of [place] heart without angina pectoris Non-alcoholic fatty liver disease Surgical History History of coronary artery stent placement History of esophagogastroduodenoscopy (EGD) ( 2014) H/O coronary artery bypass surgery ( 08/12/15) Family History Mother CAD (coronary artery disease) Hypertension Grandmother Myocardial infarction Social History Smoking Status: Never smoker alcohol (more content not included)... Normal [facility] Basophil percentageOrdered B y: Cliff Taylor on 08-08-2023 Bilirubin [Mass/Vol] 3.10 mg/dL 0.20-1.00 [facility] Comment on above: For patients on eltr ombopag therapy, use of Dimension [place] TBIL is not recommended. Chloride [Moles/Vol] 108 mmol/L 98-107 [facility] Glucose [Mass/Vol] 107 mg/dL 74-106 [facility] Comment on above: Fasting Glucose resu lt from 100 to 125 mg/dL suggests IMPAIRED HOMEOSTASIS per A.D.A. criteria. Potassium [Moles/Vol] 4.2 mmol/L 3.5-5.1 [facility] Protein [Mass/Vol] 7.1 g/dL 6.4-8.2 [facility] Sodium [Moles/Vol] 141 mmol/L 136-145 [facility] Laboratory - Chemistry and C hemistry - challengeOrdered By: Cliff Taylor on 08-08-2023 Albumin/Globulin [Mass ratio] 0.9 {ratio} 0.9-2.4 [facility] ALP [Catalytic activity/Vol] 138 U/L 45-117 [facility] ALT [Catalytic activity/Vol] 24 U/L 16-61 [facility] CO2 [Moles/Vol] 24.0 mmol/L 21.0-32.0 [facility] Globulin (S) [Mass/Vol] 3.7 g/dL 2.2-4.2 [facility] Urea nitrogen/Creatinine [Mass ratio] 20.8 mg/mg 10-20 [facility] No Panel InformationOrdered By: Cliff Taylor on 08-08-2023 Estimated GFR (MDRD) Amer 77 mL/min >60 [facility] Comment on above: GFR Calc Estimated GFR (MDRD) Non-Af Amer 64 mL/min >60 [facility] Comment on above: Non- GFR Calc Serum or plasma calcium lyly urement (mass/volume)Ordered By: Cliff Taylor on 08-08-2023 Calcium [Mass/Vol] 8.9 mg/dL 8.5-10.1 [facility] Serum or plasma creatinine m easurement (mass/volume)Ordered By: Cliff Taylor on 08-08-2023 Creatinine [Mass/Vol] 1.20 mg/dL 0.70-1.30 [facility] Comment on above: The validity of the calculated GFR & GFRAA in patients over 70 years has not been determined. Clinical correlation is essential. Serum or plasma urea nitroge n measurement (mass/volume)Ordered By: Cliff Taylor on 08-08-2023 Urea nitrogen [Mass/Vol] 25 mg/dL 7-18 [facility] Thin prep Papanicolaou smear with manual screeningOrdered By: Cliff Taylor on 08-08-2023 Thin prep Papanicolaou smear with manual screening 3.4 g/dL 3.2-5.0 [facility] Thin prep Papanicolaou smear with manual screening 21 U/L 15-37 [facility] Thin prep Papanicolaou smear with manual screening 9 5-15 [facility] Whole blood hemoglobin A1c/t otal hemoglobin ratio (mass fraction)Ordered By: Cliff Taylor on 07-13-2023 HbA1c (Bld) [Mass fraction] 6.4 % 3.8-5.6 [facility] Comment on above: Normal < 5.7 % Predi abetic 5.7 - 6.4 % Diabetic >or= 6.5 % Please note range changes. Absolute lymphocyte countOrd ered By: Cliff Taylor on 07-05-2023 Lymphocytes Auto (Unsp spec) [#/Vol] 0.81 10*3/uL 0.83-4.51 [facility] Automated lymphocyte count a s percentage of total leukocytesOrdered By: Cliff Taylor on 07-05-2023 Lymphocytes/100 WBC Auto (Unsp spec) 10.4 % 19-41 [facility] Basophil percentageOrdered B y: Cliff Taylor on 07-05-2023 Basophils/100 WBC (Bld) 1.3 % 0-1 [facility] Bilirubin [Mass/Vol] 3.20 mg/dL 0.20-1.00 [facility] Comment on above: For patients on eltr ombopag therapy, use of Dimension [place] TBIL is not recommended. Chloride [Moles/Vol] 107 mmol/L 98-107 [facility] Cholesterol [Mass/Vol] 131 mg/dL <[address] [facility] Comment on above: <200 mg/dL Desirable 200-240 mg/dL Borderline >240 mg/dL High Risk Eosinophils/100 WBC (Bld) 7.4 % 0-5 [facility] Glucose [Mass/Vol] 131 mg/dL 74-106 [facility] Comment on above: Fasting Glucose resu lt greater than or equal to 126 mg/dL suggests DIABETES MELLITUS per A.D.A. criteria. Hemoglobin (Bld) [Mass/Vol] 14.1 g/dL 13.0-16.5 [facility] Monocytes/100 WBC (Bld) 6.7 % 0-10 [facility] Neutrophils (Bld) [#/Vol] 5.8 10*3/uL 2.0-7.7 [facility] Neutrophils/100 WBC (Bld) 73.8 % 47-70 [facility] Potassium [Moles/Vol] 4.1 mmol/L 3.5-5.1 [facility] Protein [Mass/Vol] 6.7 g/dL 6.4-8.2 [facility] Sodium [Moles/Vol] 139 mmol/L 136-145 [facility] Triglyceride [Mass/Vol] 67 mg/dL <199 [facility] Comment on above: The drugs N-Acetylcy steine and Metamizole may falsely depress this assay.Serum Triglycerides Reference Interval Normal <150 mg/dL Borderline high 150 - 199 mg/dL High 200 - 499 mg/dL Very High > or = 500 mg/dL WBC (Bld) [#/Vol] 7.8 10*3/uL 4.4-11.0 [facility] Determination of erythrocyte mean corpuscular volume (MCV)Ordered By: Cliff Taylor on 07-05-2023 MCV (RBC) [Entitic vol] 95.9 fL 80-94 [facility] Erythrocyte distribution wid th ratioOrdered By: Cliff Taylor on 07-05-2023 Erythrocyte distribution width (RBC) [Ratio] 15.0 % 11.6-14.6 [facility] Erythrocyte distribution wid th standard deviationOrdered By: [facility] on 07-05-2023 Erythrocyte distribution width (RBC) [Entitic vol] 53.2 fL 35.1-43.9 [facility] Hematocrit Auto (Bld) [Volum e fraction]Ordered By: [facility] on 07-05-2023 Hematocrit (Bld) [Volume fraction] 44.2 % 40-54 [facility] Immature granulocytes/100 WB C Auto (Bld)Ordered By: [facility] on 07-05-2023 Immature granulocytes/100 WBC (Bld) 0.400 % 0.0-0.9 [facility] Comment on above: IG% - Immature Granu locytes (promyelocytes, myelocytes and metamyelocytes) > 1% indicates that a LEFT SHIFT is Present. Laboratory - Chemistry and C hemistry - challengeOrdered By: [facility] on 07-05-2023 Albumin/Globulin [Mass ratio] 0.8 {ratio} 0.9-2.4 [facility] ALP [Catalytic activity/Vol] 119 U/L 45-117 [facility] ALT [Catalytic activity/Vol] 32 U/L 16-61 [facility] Cholesterol in HDL [Mass/Vol] 27 mg/dL >40 [facility] Comment on above: The drugs N-Acetylcy steine and Metamizole may falsely depress this assay. Reference Range HDL <40 mg/dL Low HDL Cholesterol HDL >or= 60 mg/dL High HDL Cholesterol Cholesterol in LDL [Mass/Vol] 91 mg/dL 0-130 [facility] CO2 [Moles/Vol] 28.0 mmol/L 21.0-32.0 [facility] Globulin (S) [Mass/Vol] 3.8 g/dL 2.2-4.2 [facility] Urea nitrogen/Creatinine [Mass ratio] 13.4 mg/mg 10-20 [facility] Laboratory - Hematology and Cell countsOrdered By: [facility] 07-05-2023 MCH (RBC) [Entitic mass] 30.6 pg 27.0-32.0 [facility] MCHC (RBC) [Mass/Vol] 31.9 g/dL 32-36 [facility] Nucleated RBC/100 WBC (Bld) [Ratio] 0 % 0-5 [facility] Platelet mean volume (Bld) [Entitic vol] 9.3 fL 6.2-12.0 [facility] Platelets (Bld) [#/Vol] 312 10*3/uL 150-450 [facility] No Panel InformationOrdered By: Cliff Taylor on 07-05-2023 Estimated GFR (MDRD) Amer 72 mL/min >60 [facility] Comment on above: GFR Calc Estimated GFR (MDRD) Non-Af Amer 60 mL/min >60 [facility] Comment on above: Non- GFR Calc Prostate Specific Antigen Screen 2.71 ng/mL 0.00-4.00 [facility] Comment on above: This test was perfor med using the TPSA assay method for [employer] chemistry system. Values obtained with differentassay methods cannot be used interchangably.When changing PSA assays in the course of monitoring apatient, additional sequential testing should be carriedout to confirm baseline values. Vitamin D 25-Hydroxy 73.7 ng/mL [facility] Comment on above: Vitamin D 25(OH) Sta tus Range Deficiency <20 ng/mL (50nmol/L) Insufficiency 20 - 30 ng/mL (50 - 75 nmol/L) Sufficiency 30 - 100 ng/mL (75 - 250 nmol/L) Toxicity >100 ng/mL (>250 nmol/L) VLDL Cholesterol 13 mg/dL 5-40 [facility] RBC Auto (Bld) [#/Vol]Ordere d By: Cliff Taylor on 07-05-2023 RBC (Bld) [#/Vol] 4.61 10*6/uL 4.6-6.[address] [facility] Serum or plasma calcium lyly urement (mass/volume)Ordered By: Cliff Taylor on 07-05-2023 Calcium [Mass/Vol] 8.8 mg/dL 8.5-10.1 [facility] Serum or plasma creatinine m easurement (mass/volume)Ordered By: Cliff Taylor on 07-05-2023 Creatinine [Mass/Vol] 1.27 mg/dL 0.70-1.30 [facility] Comment on above: The validity of the calculated GFR & GFRAA in patients over 70 years has not been determined. Clinical correlation is essential. Serum or plasma thyroid stim ulating hormone (TSH) measurement (units/volume)Ordered By: Cliff Kruegerok on 07-05-2023 TSH Qn 0.99 uIU/mL 0.358-3.74 [facility] Serum or plasma urea nitroge n measurement (mass/volume)Ordered By: Cliff Taylor on 07-05-2023 Urea nitrogen [Mass/Vol] 17 mg/dL 7-18 [facility] Thin prep Papanicolaou smear with manual screeningOrdered By: Cliff Edvin on 07-05-2023 Thin prep Papanicolaou smear with manual screening 2.9 g/dL 3.2-5.0 [facility] Thin prep Papanicolaou smear with manual screening 27 U/L 15-37 [facility] Thin prep Papanicolaou smear with manual screening 4 5-15 [facility] Absolute lymphocyte counton 05-11-2022 Lymphocytes Auto (Unsp spec) [#/Vol] 1.52 10*3/uL 0.83-4.51 [facility] Work Phone: Basophil percentageon 2021 Basophils/100 WBC (Bld) 0.7 % 0-1 [facility] Work Phone: Bilirubin [Mass/Vol] 1.20 mg/dL 0.20-1.00 [facility] Work Phone: Comment on above: For patients on eltr ombopag therapy, use of Dimension [place] TBIL is not recommended. Chloride [Moles/Vol] 104 mmol/L 98-107 [facility] Work Phone: Eosinophils/100 WBC (Bld) 3.0 % 0-5 [facility] Work Phone: Glucose [Mass/Vol] 119 mg/dL 74-106 [facility] Work Phone: Comment on above: Fasting Glucose resu lt from 100 to 125 mg/dL suggests IMPAIRED HOMEOSTASIS per A.D.A. criteria. Neutrophils (Bld) [#/Vol] 5.9 10*3/uL 2.0-7.7 [facility] Work Phone: Neutrophils/100 WBC (Bld) 69.9 % 47-70 [facility] Work Phone: Potassium [Moles/Vol] 4.3 mmol/L 3.5-5.1 [facility] Work Phone: Protein [Mass/Vol] 7.3 g/dL 6.4-8.2 [facility] Work Phone: Sodium [Moles/Vol] 139 mmol/L 136-145 [facility] Work Phone: WBC (Bld) [#/Vol] 8.4 10*3/uL 4.4-11.0 [facility] Work Phone: Blood erythrocytes count (nu mber/volume)on 05-11-2022 RBC (Bld) [#/Vol] 4.94 10*6/uL 4.6-6.2 [facility]: Blood hemoglobin measurement (mass/volume)on 05-11-2022 Hemoglobin (Bld) [Mass/Vol] 14.7 g/dL 13.0-16.5 [facility] Work Phone: [phone] Blood lymphocytes/100 leukoc yteson 05-11-2022 Lymphocytes/100 WBC (Bld) 18.1 % 19-41 [facility] Work Phone: Blood monocytes/100 leukocyt eson 05-11-2022 Monocytes/100 WBC (Bld) 8.1 % 0-10 [facility] Work Phone: [phone] Blood platelet mean volumeon 05-11-2022 Platelet mean volume (Bld) [Entitic vol] 9.2 fL 6.2-12.0 [facility] Work Phone: Determination of erythrocyte mean corpuscular volume (MCV)on 05-11-2022 MCV (RBC) [Entitic vol] 89.3 fL 80-94 [facility] Work Phone: Hematocrit Auto (Bld) [Volum e fraction]on 05-11-2022 Hematocrit (Bld) [Volume fraction] 44.1 % 40-54 [facility] Work Phone: Laboratory - Chemistry and C hemistry - challengeon 05-11-2022 ALP [Catalytic activity/Vol] 82 U/L 45-117 [facility] Work Phone: [phone] ALT [Catalytic activity/Vol] 26 U/L 16-61 [facility] Work Phone: CO2 [Moles/Vol] 27.0 mmol/L 21.0-32.0 [facility] Work Phone: Globulin (S) [Mass/Vol] 3.1 g/dL 2.2-4.2 [facility] Work Phone: Urea nitrogen/Creatinine [Mass ratio] 14.7 mg/mg 10-20 [facility] Work Phone: Laboratory - Hematology and Cell countson 05-11-2022 Erythrocyte distribution width (RBC) [Entitic vol] 46.4 fL 35.1-43.9 [facility] Work Phone: Erythrocyte distribution width (RBC) [Ratio] 14.1 % 11.6-14.6 [facility] Work Phone: Immature granulocytes/100 WBC (Bld) 0.200 % 0.0-0.9 [facility] Work Phone: Comment on above: IG% - Immature Granu locytes (promyelocytes, myelocytes and metamyelocytes) > 1% indicates that a LEFT SHIFT is Present. MCH (RBC) [Entitic mass] 29.8 pg 27.0-32.0 [facility] Work Phone: Nucleated RBC/100 WBC (Bld) [Ratio] 0 % 0-5 [facility] Work Phone: MCHC Auto (RBC) [Mass/Vol]on 05-11-2022 MCHC (RBC) [Mass/Vol] 33.3 g/dL 32-36 [facility] Work [facility]: No Panel Informationon 05-11 Estimated GFR (MDRD) Amer 71 mL/min >60 [facility] Work Phone: Comment on above: GFR Calc Estimated GFR (MDRD) Non-Af Amer 59 mL/min >60 [facility] Work Phone: Comment on above: Non- GFR Calc Prostate Specific Antigen Screen 1.98 ng/mL 0.00-4.00 [facility] Work Phone: Comment on above: This test was perfor med using the TPSA assay method for [employer] chemistry system. Values obtained with differentassay methods cannot be used interchangably.When changing PSA assays in the course of monitoring apatient, additional sequential testing should be carriedout to confirm baseline values. Thyroid Stimulating Hormone (TSH) 1.61 uIU/mL 0.358-3.74 [facility] Work Phone: Vitamin D 25-Hydroxy 55.1 ng/mL [facility] Work Phone: Comment on above: Vitamin D 25(OH) Sta tus Range Deficiency <20 ng/mL (50nmol/L) Insufficiency 20 - 30 ng/mL (50 - 75 nmol/L) Sufficiency 30 - 100 ng/mL (75 - 250 nmol/L) Toxicity >100 ng/mL (>250 nmol/L) Platelets bldon 05-11-2022 Platelets (Bld) [#/Vol] 332 10*3/uL 150-450 [facility] Work Phone: Serum or plasma albumin lyly urement (mass/volume)on 05-11-2022 Albumin [Mass/Vol] 4.2 g/dL 3.2-5.0 [facility] Work Phone: Serum or plasma albumin/glob ulin mass ratioon 05-11-2022 Albumin/Globulin [Mass ratio] 1.4 {ratio} 0.9-2.4 [facility] Work Phone: Serum or plasma calcium lyly urement (mass/volume)on 05-11-2022 Calcium [Mass/Vol] 9.2 mg/dL 8.5-10.1 [facility] Work Phone: Serum or plasma creatinine m easurement (mass/volume)on 05-11-2022 Creatinine [Mass/Vol] 1.29 mg/dL 0.70-1.30 [facility] Work Phone: Comment on above: The validity of the calculated GFR & GFRAA in patients over 70 years has not been determined. Clinical correlation is essential. Serum or plasma urea nitroge n measurement (mass/volume)on 05-11-2022 Urea nitrogen [Mass/Vol] 19 mg/dL 7-18 [facility] Work Phone: Thin prep Papanicolaou smear with manual screeningon 05-11-2022 Thin prep Papanicolaou smear with manual screening 18 U/L 15-37 [facility] Work Phone: Thin prep Papanicolaou smear with manual screening 8 5-15 [facility] Work Phone: Final Surgical Pathology Rep [facility] 07-03-2017 Final Surgical Pathology Report . Pathology ReportsAccession: Collected Date/Time: Received Date/Time: Pathologist:[id number] 06/29/2017 13:47 EST 06/30/2017 13:47 MD JENELLE MOORE Final Surgical Pathology ReportDIAGNOSIS:SIGMOID COLON, BIOPSY -- TUBULAR ADENOMA.CLINICAL INFORMATION:SCREENING COLONOSCOPYSPECIMEN:A POLYP, COLORECT - SIGMOID POLYP BIOPSIES - R/O ADENOMAGROSS DESCRIPTION:_Received in formalin labeled sigmoid polyp biopsies are 3 solorzano glistening soft tissues averaging 0.3 cm. A S -1Dictated by KAMAR OLIVA ([facility])MICROSCOPIC DESCRIPTION:Slides reviewed.Electronically Signed byPathology Report verified by [facility]ronically signed by JENELLE LEVIN MDSign out Date: 07/03/2017 11:12Performing Lab: [facility], [address] [place] [address] ([place]) Comment on above: Performed By: #### S PFR ####[place] [address] Vital Signs Date Time Vital Sign Value Performing Clinician Faci lity 02-04-2025 08:33-0400 Body height 182.[address] Cliff Taylor MD Work Phone: [facility] 02-04-2025 08:33-0400 Body mass index (BMI) [Ratio] 25.4 kg/m2 Dr. Cliff Taylor MD Work Phone: [facility] 02-04-2025 08:33-0400 Body weight 85.[address] Cliff Taylor MD Work Phone: 9(681)634-866510 [place] [address] 02-04-2025 08:33-0400 Diastolic blood pressure 68 mm[Hg] Dr. Cliff Taylor MD Work Phone: 2(925)011-168310 [place] [address] 02-04-2025 08:33-0400 Respiratory rate 79 /min Dr. Cliff Taylor MD Work Phone: 8(639)882-037510 [place] [address] 02-04-2025 08:33-0400 SaO2% (BldA) [Mass fraction] 97 % Dr. Cliff Taylor MD Work Phone: 9(268)798-738910 [place] [address] 02-04-2025 08:33-0400 Systolic blood pressure 130 mm[Hg] Dr. Cliff Taylor MD Work Phone: 8(655)111-911710 [place] [address] 01-15-2025 08:23-0400 Body height 182.[address] Cliff Taylor MD Work Phone: 3(481)653-690781 [address] 01-15-2025 08:23-0400 Body mass index (BMI) [Ratio] 25 kg/m2 Dr. Cliff Taylor MD Work Phone: 7(434)547-497810 [place] [address] 01-15-2025 08:23-0400 Body weight 83.[address] Cliff Taylor MD Work Phone: 9(544)953-872110 [place] [address] 01-15-2025 08:23-0400 Diastolic blood pressure 62 mm[Hg] Dr. Cliff Taylor MD Work Phone: 1(357)543-078310 [place] [address] 01-15-2025 08:23-0400 Heart rate 93 /min Dr. Cliff Taylor MD Work Phone: [facility] 01-15-2025 08:23-0400 Respiratory rate 16 /min Dr. Cliff Taylor MD Work Phone: 2(898)678-279510 [place] [address] 01-15-2025 08:23-0400 Systolic blood pressure 120 mm[Hg] Dr. Cliff Taylor MD Work Phone: 1(994)171-862310 [place] [address] 10-15-2024 08:18-0400 Body height 182.[address] Cliff Taylor MD Work Phone: 4(117)217-006410 [place] [address] 10-15-2024 08:18-0400 Body mass index (BMI) [Ratio] 24.8 kg/m2 Dr. Cliff Taylor MD Work Phone: 2(752)483-958610 [place] [address] 10-15-2024 08:18-0400 Body weight [address] Cliff Taylor MD Work Phone: 0(462)679-639010 [place] [address] 10-15-2024 08:18-0400 Diastolic blood pressure 77 mm[Hg] Dr. Cliff Taylor MD Work Phone: 5(458)835-180510 [place] [address] 10-15-2024 08:18-0400 Heart rate 80 /min Dr. Cliff Taylor MD Work Phone: 6(163)277-147910 [place] [address] 10-15-2024 08:18-0400 Respiratory rate 16 /min Dr. Cliff Taylor MD Work Phone: 7(328)236-230110 [place] [address] 10-15-2024 08:18-0400 Systolic blood pressure 147 mm[Hg] Dr. Cliff Taylor MD Work Phone: 8(760)337-264810 [place] [address] 10-08-2024 09:52-0400 Body height 182.[address] Cliff Taylor MD Work Phone: 7(846)512-209210 [place] [address] 10-08-2024 09:52-0400 Body mass index (BMI) [Ratio] 24.7 kg/m2 Dr. Cliff Taylor MD Work Phone: 3(507)361-736410 [place] [address] 10-08-2024 09:52-0400 Body weight 82.[address] Cliff Taylor MD Work Phone: 1(855)078-709210 [place] [address] 10-08-2024 09:52-0400 Diastolic blood pressure 79 mm[Hg] Dr. Cliff Taylor MD Work Phone: 5(271)245-465810 [place] [address] 10-08-2024 09:52-0400 Heart rate 46 /min Dr. Cliff Taylor MD Work Phone: 6(268)422-712310 [place] [address] 10-08-2024 09:52-0400 SaO2% (BldA) [Mass fraction] 94 % Dr. Clfif Taylor MD Work Phone: 5(666)902-370910 [place] [address] 10-08-2024 09:52-0400 Systolic blood pressure 138 mm[Hg] Dr. Cliff Taylor MD Work Phone: 7(287)002-741610 [place] [address] 06-25-2024 09:32-0500 Body height 182.[address] Cliff Taylor MD Work Phone: 2(057)266-012610 [place] [address] 06-25-2024 09:32-0500 Body mass index (BMI) [Ratio] 24.4 kg/m2 Dr. Cliff Taylor MD Work Phone: 5(858)872-978510 [place] [address] 06-25-2024 09:32-0500 Body weight 81.[address] Cliff Taylor MD Work Phone: 4(957)481-187810 [place] [address] 06-25-2024 09:32-0500 Heart rate 71 /min Dr. Cliff Taylor MD Work Phone: 5(367)197-282310 [place] [address] 06-25-2024 09:32-0500 SaO2% (BldA) [Mass fraction] 97 % Dr. Cliff Taylor MD Work Phone: 3(819)851-221910 [place] [address] 06-10-2024 08:54-0500 Body mass index (BMI) [Ratio] 23.7 kg/m2 Dr. Cliff Taylor MD Work Phone: 5(892)009-681810 [place] [address] 06-10-2024 08:54-0500 Body weight 79.[address] Cliff Taylor MD Work Phone: 5(473)978-873810 [place] [address] 06-10-2024 08:54-0500 Diastolic blood pressure 84 mm[Hg] Dr. Cliff Taylor MD Work Phone: 3(658)273-972910 [place] [address] 06-10-2024 08:54-0500 Heart rate 82 /min Dr. Cliff Taylor MD Work Phone: [facility] 06-10-2024 08:54-0500 Respiratory rate 18 /min Dr. Cliff Taylor MD Work Phone: [facility] 06-10-2024 08:54-0500 SaO2% (BldA) [Mass fraction] 99 % Dr. Cliff Taylor MD Work Phone: 4(116)027-374510 [place] [address] 06-10-2024 08:54-0500 Systolic blood pressure 136 mm[Hg] Dr. Cliff Taylor MD Work Phone: 6(097)104-577510 [place] [address] 05-16-2024 12:30-0500 Body temperature 97.4 [degF] Dr. Cliff Taylor MD Work Phone: 2(604)029-268110 [place] [address] 05-16-2024 12:30-0500 Diastolic blood pressure 63 mm[Hg] Dr. Cliff Taylor MD Work Phone: 0(709)311-025881 [address] 05-16-2024 12:30-0500 Heart rate 80 /min Dr. Cliff Taylor MD Work Phone: 1(807)901-667310 [place] [address] 05-16-2024 12:30-0500 Respiratory rate 16 /min Dr. Cliff Taylor MD Work Phone: 9(105)583-248781 [address] 05-16-2024 12:30-0500 SaO2% (BldA) [Mass fraction] 97 % Dr. Cliff Taylor MD Work Phone: 1(127)505-341610 [place] [address] 05-16-2024 12:30-0500 Systolic blood pressure 100 mm[Hg] Dr. Cliff Taylor MD Work Phone: [facility] 05-16-2024 10:31-0500 Body mass index (BMI) [Ratio] 23.6 kg/m2 Dr. Cliff Taylor MD Work Phone: 4(310)081-741810 [place] [address] 05-16-2024 10:31-0500 Body weight [address] Cliff Taylor MD Work Phone: [facility] Encounters Encounter Date Encounter Type Care Provider Facility Start: 02-10-2025 Non-patient / Non-visit Dr. Ivan Mccall MD -[facility] Start: 02-10-2025 End: 02-10-[address] Cliff Taylor MD Work Phone: -Cardiovascular Services Start: 02-10-2025 End: 02-10-2025 Patient encounter procedure Norris Grigsby ART SUPERVISOR-C -Cardiovascular Services Work Phone: Start: 02-10-2025 End: 02-10-2025 ambulatory Norris Grigsby ART SUPERVISOR Facility:[facility] Start: 02-04-2025 End: 02-04-[address] Prieto Gong MD -Laboratory Work Phone: Start: 02-04-2025 End: 02-04-[address] Cliff Taylor MD Work Phone: -[facility] Start: 02-04-2025 End: 02-04-2025 ambulatory Cliff Taylor Facility:[facility] Start: 01-15-2025 End: 01-15-[address] Cliff Taylor MD Work Phone: -Laboratory Start: 01-15-2025 End: 01-15-2025 Patient encounter procedure Norris Grigsby ART SUPERVISOR-C -Laboratory Work Phone: Start: 01-15-2025 End: 01-15-[address] Cliff Taylor MD Work Phone: -[facility] Start: 01-15-2025 End: 01-15-2025 Patient encounter procedure Norris Grigsby ART SUPERVISOR-C -[facility] Work Phone: Start: 01-15-2025 End: 01-15-2025 ambulatory Norris Grigsby ART SUPERVISOR Facility:[facility] Start: 11-25-2024 Patient encounter procedure Norris Grigsby ART SUPERVISOR-C -Laboratory Work Phone: Start: 11-25-2024 End: 11-25-2024 ambulatory Norris Grigsby ART SUPERVISOR Facility:[facility] Start: 11-06-2024 End: 11-06-2024 Discharged Recurring Norris Grigsby ART SUPERVISOR-C -Laboratory Work Phone: Start: 11-06-2024 End: 11-06-[address] Cliff Taylor MD Work Phone: -Laboratory Start: 10-15-2024 End: 10-15-[address] Cliff Taylor MD Work Phone: [facility] Work Phone: Start: 10-15-2024 End: 10-15-2024 Patient encounter procedure Norris Grigsby ART SUPERVISOR-C -Laboratory Work Phone: Start: 10-15-2024 End: 10-15-2024 Patient encounter procedure Norris Grigsby ART SUPERVISOR-C -[facility] Work Phone: Start: 10-15-2024 End: 10-15-[address] Cliff Taylor MD Work Phone: [facility] Work Phone: Start: 10-15-2024 End: 10-15-2024 ambulatory Norris Grigsby ART SUPERVISOR Facility:[facility] Start: 10-08-2024 End: 10-08-[address] Cliff Taylor MD Work Phone: [facility] Work Phone: Start: 10-08-2024 End: 10-08-[address] Prieto Gong MD -Laboratory Work Phone: Start: 10-08-2024 End: 10-08-[address] Prieto Gong MD -[facility] Work Phone: Start: 10-08-2024 End: 10-08-[address] Cliff Taylor MD Work Phone: [facility] Work Phone: Start: 10-08-2024 End: 10-08-2024 ambulatory Prieto Gong Facility:[facility] Start: 09-27-2024 Non-patient / Non-visit Dr. Ivan Mccall MD -[facility] Start: 09-27-2024 End: 09-27-[address] Cliff Taylor MD Work Phone: [facility] Work Phone: Start: 09-27-2024 End: 09-27-2024 Patient encounter procedure Stefanie Dunaway PA -Cardiovascular Services Work Phone: Start: 09-27-2024 End: 09-27-2024 ambulatory Stefanie OLIVA Facility:[facility] Start: 09-20-2024 Non-patient / Non-visit Laila Nolt -[facility] Work Phone: Start: 09-20-2024 ambulatory Laila Nolt Facility:[facility] Start: 07-16-2024 End: 07-16-[address] Cliff Taylor MD Work Phone: [facility] Work Phone: Start: 07-16-2024 End: 07-16-[address] Cliff Taylor MD -Laboratory, Phy Office 3rd [facility] Start: 07-16-2024 End: 07-16-2024 ambulatory Cliff Taylor Facility:[facility] Start: 07-10-2024 End: 07-10-[address] Cliff Taylor MD Work Phone: [facility] Work Phone: Start: 07-10-2024 End: 07-10-[address] Prieto Gong MD -Ultrasound, [facility] Work Phone: Start: 07-10-2024 End: 07-10-2024 ambulatory Prieto Gong Facility:[facility] Start: 06-25-2024 End: 06-25-[address] Prieto Gong MD -[facility] Work Phone: Start: 06-25-2024 End: 06-25-2024 ambulatory Prieto Gong Facility:[facility] Start: 06-25-2024 End: 06-25-2024 ambulatory Prieto Gong Facility:[facility] Start: 06-10-2024 End: 06-10-2024 Patient encounter procedure Stefanie OLIVA -[facility] Work Phone: Start: 06-10-2024 End: 06-10-2024 ambulatory Cliff Chi Edvin Facility:[facility] Start: 06-10-2024 End: 06-10-2024 ambulatory Stefanie OLIVA Facility:[facility] Start: 05-24-2024 End: 05-24-2024 Patient encounter procedure Kanwal OLIVA -Laboratory, Specimen Work Phone: Start: 05-24-2024 End: 05-24-2024 ambulatory Kanwal Vines Facility:[facility] Start: 05-21-2024 ambulatory Ivan Mccall Facility:[facility] Start: 05-21-2024 Non-patient / Non-visit Dr. Ivan Mccall MD -[facility] Start: 05-21-2024 End: 05-21-2024 Patient encounter procedure Stefanie OLIVA -Cardiovascular Services Work Phone: Start: 05-21-2024 End: 05-21-2024 ambulatory Stefanie OLIVA Facility:[facility] Start: 05-16-2024 Non-patient / Non-visit Gerald Carroll DO -[facility] Start: 05-16-2024 End: 05-16-2024 Admission to same day surgery center Gerald Carroll DO -Endoscopy Work Phone: Start: 05-16-2024 End: 05-16-2024 ambulatory Gerald Carroll Facility:[facility] Start: 04-02-2024 End: 04-02-2024 Patient encounter procedure Stefanie OLIVA -Laboratory Work Phone: Start: 04-02-2024 End: 04-02-2024 ambulatory Cliff Chi Edvin Facility:[facility] Start: 03-26-2024 End: 03-26-2024 ambulatory Kanwal Vines Facility:[facility] Start: 03-26-2024 End: 03-26-2024 [facility] Start: 03-14-2024 End: 03-14-2024 ambulatory Stefanie OLIVA Facility:[facility] Start: 08-08-2023 End: 08-08-2023 ambulatory [facility] Work Phone: Start: 08-08-2023 End: 08-08-2023 [facility] Start: 07-13-2023 End: 07-13-2023 ambulatory [facility] Work Phone: Start: 07-13-2023 End: 07-13-2023 [facility] Start: 07-05-2023 End: 07-05-2023 ambulatory [facility] Work Phone: Start: 07-05-2023 End: 07-05-2023 [facility] Start: 05-11-2022 End: 05-11-2022 ambulatory [facility] Work Phone: Start: 05-11-2022 End: 05-11-2022 [facility] Start: 06-29-2017 End: 07-04-2017 [facility] Procedures Date Procedure Procedure Detail Performing Clinician Start: 02-04-[address] Cliff sellers MD Work Phone: Comment on above: Test Ordered: [id number] Enhanced Liver Fibrosis (ELF)ELF(TM) Score 10.59 [H ] BN Reference Range: <9.80ELF(TM) Score Interpretation:Risk cut-offs to assess the likelihood of progressionto cirrhosis and liver-related clinical events within3.9 years following baseline ELF score (IQR: 14.0-22.4months)*: Lower risk < 9.80 Mid risk 9.80 - 11.29 Higher risk >11.29Note: The ELF(TM) Score is a unitless numerical value.*Clark SA, Christian VW, Carol T, et al. Selonsertibfor patients with bridging fibrosis or compensatedcirrhosis due to CHEN: Results from randomized phaseIII STELLAR trials. J Hepatol. 2020 Nov;73(1):26-39.Performed at: [facility] [id number] Director: Ne Mcguire MD, Phone: [phone] at: [facility] [id number] Director: Carlos Betancourt PhD, Phone: [phone] Start: 10-08-2024 Serum inorganic phos phate measurement Dr. Cliff Taylor MD Work Phone: Start: 07-16-2024 Vitamin D, 25-hydrox y measurement Dr. Cliff Taylor MD Work Phone: Comment on above: Vitamin D StatusDefi ciency: <20 ng/mL (50nmol/L)Insufficiency: 20-30 ng/mL (50-75 nmol/L)Sufficiency: 30-100 ng/mL (75-250 nmol/L)Toxicity: >100 ng/mL (>250 nmol/L) Start: 07-10-2024 Ultrasound elastogra phy of liver Dr. Cliff Taylor MD Work Phone: Start: 06-25-2024 Assay of phosphorus inorganic Dr. Cliff Taylor MD Work Phone: Start: 06-25-2024 Measurement of renal function Dr. Cliff Taylor MD Work Phone: Comment on above: GFR Calc Start: 06-25-2024 Vitamin D, 25-hydrox y measurement Dr. Cliff Taylor MD Work Phone: Comment on above: Vitamin D 25(OH) Sta tus Range Deficiency <20 ng/mL (50nmol/L) Insufficiency 20 - 30 ng/mL (50 - 75 nmol/L) Sufficiency 30 - 100 ng/mL (75 - 250 nmol/L) Toxicity >100 ng/mL (>250 nmol/L) Start: 06-10-2024 Measurement of renal function Dr. Cliff Taylor MD Work Phone: Comment on above: GFR Calc Start: 07-14-2015 History of coronary artery bypass grafting H/O coronary artery bypass surgery Comment on above: CABG x 3 REYES-side-t o-side-Mid LAD and end-to-side to the apical segment, Free ABIMAEL-OM, SVG-PDA of the RCA 08/12/2015 Plan of Treatment Date Care Activity Detail Author Start: 02-10-2025 Non-patient / Non-visit Non-pa tient / Non-visit -[facility] Start: 02-10-2025 Patient encounter procedure Registered [facility] -[facility] Work Phone: Start: 02-04-2025 Procedure [facility] Start: 05-16-2024 Egd transoral biopsy single/multiple EGD BIOPSY SINGLE/MULTIPLE [facility] Start: 05-16-2024 Patient discharge [facility] Basic metabolic 2007 panel with ionized calcium - Serum or Plasma [facility] Basic metabolic 2007 panel with ionized calcium - Serum or Plasma [facility] CBC W Auto Different ial panel - Blood [facility] Comprehensive metabo lic 1999 panel - Serum or Plasma [facility] Lipid 1996 panel - S talon or Plasma [facility] Liver stiffness by US.transient elastography [facility] Patient referral [facility] Work Phone: US Heart limited [facility] Payers Date Payer Category Payer Self-pay [id number] 2024 Medicare [id number] 2024 Unknown [id number] 2011 Unknown [id number] Unknown [id number] 2.16.8 40.1.777199.3.579.2.462 Unknown [id number] 2.16.8 40.1.395758.3.579.2.462 Unknown [id number] 2.16.8 40.1.959393.3.579.2.462 Unknown [id number] 2.16.8 40.1.569474.3.579.2.462 Unknown [id number] 2.16.8 40.1.482979.3.579.2.462 Unknown [id number] 2.16.8 40.1.885427.3.579.2.462 Unknown [id number] 2.16.8 40.1.768361.3.579.2.462 Unknown [id number] 2.16.8 40.1.644886.3.579.2.462 Unknown [id number] 2.16.8 40.1.792623.3.579.2.462 Unknown [id number] 2.16.8 40.1.788430.3.579.2.462 Unknown [id number] 2.16.8 40.1.904267.3.579.2.462 Unknown [id number] 2.16.8 40.1.277792.3.579.2.462 Unknown [id number] 2.16.8 40.1.618674.3.579.2.462 Unknown [id number] 2.16.8 40.1.314111.3.579.2.462 Unknown [id number] 2.16.8 40.1.047396.3.579.2.462 Unknown [id number] 2.16.8 40.1.295987.3.579.2.462 Unknown [id number] 2.16.8 40.1.023807.3.579.2.462 Unknown [id number] 2.16.8 40.1.696562.3.579.2.462 Unknown [id number] 2.16.8 40.1.354971.3.579.2.462 Unknown [id number] 2.16.8 40.1.294108.3.579.2.462 Unknown [id number] 2.16.8 40.1.467744.3.579.2.462 Unknown [id number] 2.16.8 40.1.532310.3.579.2.462 Unknown [id number] 2.16.8 40.1.208457.3.579.2.462 Unknown [id number] 2.16.8 40.1.668495.3.579.2.462 Unknown [id number] 2.16.8 40.1.144227.3.579.2.462 Unknown [id number] 2.16.8 40.1.664137.3.579.2.462 Unknown [id number] 2.16.8 40.1.420192.3.579.2.462 Unknown [id number] 2.16.8 40.1.986358.3.579.2.462 Unknown [id number] 2.16.8 40.1.556293.3.579.2.462 Unknown [id number] 2.16.8 40.1.385373.3.579.2.462 Social History Date Type Detail Facility Start: 05-17-2021 End: 05-17-2021 Tobacco smoking status NHIS Unknown if ever smoked [facility] Start: 11-08-2017 None [facility] Start: 11-08-2017 Spouse/ Signif icant Other [facility] Start: 11-10-2017 Non-smoker [facility] Start: 1955 Sex Assigned At Male [facility] Start: 05-13-2024 Tobacco smoking status NHIS Never smoked tobacco (finding) [facility] Start: 07-25-2024 End: 07-30-2024 Sex Male (finding) [facility] Sex Male [facility] Goals Date Patient Goal Desired Activity /State Mental Status Date Assessment Result Facility 05-16-2024 Cognitive function Voice/Name [facility] Work Phone: Clinical Notes 05-16-2024 to 02-04-2025 Note Date & Type Note Facility 02-04-[address] [facility] 01-15-2025 Evaluation note Diagnosis Onset Date Resolution Atherosclerosis of coronary artery of [place] heart without angina pectoris chronic Septembe 2024 8:23am Atrial flutter chronic January 15, 2025 8:23am Dilated cardiomyopathy chronic Se ptember 2024 8:23am Essential hypertension chronic Se ptember 2024 8:23am Pure hypercholesterolemia chronic January 15, 2025 8:23am Cirrhosis of liver chronic Septem 2024 8:29am Metabolic dysfunction-associated steatotic liver disease (MASLD) chronic February 04, 2025 8:29am [facility] Work Phone: 1(920) 861-500306-03-2025 Evaluation note* Diagnosis Onset Date Resolution Status Admit Date Atherosclerosis of coronary artery of [place] heart without angina pectoris chronic October 15, 2024 7 :57am Atrial flutter chronic October 15, 2024 7:57am Dilated cardiomyopathy chronic Ju ne 2024 7:57am Essential hypertension chronic Ju ne 2024 7:57am Pure hypercholesterolemia chronic October 15, 2024 7:57am Atherosclerosis of coronary artery of [place] heart without angina pectoris chronic January 15, 025 8:23am Atrial flutter chronic January 15, 2025 8:23am Dilated cardiomyopathy chronic Se ptember 2024 8:23am Essential hypertension chronic Se ptember 2024 8:23am Pure hypercholesterolemia chronic January 15, 2025 8:23am Cirrhosis of liver chronic Septem 2024 8:29am Metabolic dysfunction-associ ated steatotic liver disease (MASLD) chronic February 04, 2025 8:29am [facility] Work Phone: 1(438) 718-519505-27-2025 Evaluation note* Diagnosis Onset Date Resolution Status Admit Date Cirrhosis of liver chronic October 082024 9:20am Metabolic dysfunction-associ ated steatotic liver disease (MASLD) chronic October 08, 2024 9:20am Atrial flutter acute October 15, 2024 7:57am Dilated cardiomyopathy acute Ju ne 2024 7:57am Essential hypertension acute Ju ne 2024 7:57am Pure hypercholesterolemia acute October 15, 2024 7:57am Atherosclerosis of coronary artery of [place] heart without angina pectoris chronic October 15, 2024 7:57am [facility] Work Phone: 1(305) 811-945905-27-2025 Evaluation note* Diagnosis Onset Date Resolution Status Admit Date Cirrhosis of liver chronic October 082024 9:20am Metabolic dysfunction-associ ated steatotic liver disease (MASLD) chronic October 08, 2024 9:20am Atrial flutter acute October 15, 2024 7:57am Dilated cardiomyopathy acute Ju 2024 7:57am Essential hypertension acute ne 2024 7:57am Pure hypercholesterolemia acute October 15, 2024 7:57am Atherosclerosis of coronary artery of [place] heart without angina pectoris chronic October 15, 2024 7 :57am Atrial flutter acute January 15, 2025 8:23am Dilated cardiomyopathy acute Se ptember 2024 8:23am Essential hypertension acute Se ptember 2024 8:23am Pure hypercholesterolemia acute January 15, 2025 8:23am Atherosclerosis of coronary artery of [place] heart without angina pectoris chronic January 15 025 8:23am [facility] Work Phone: 1(166) 508-554705-27-2025 Evaluation note* Diagnosis Onset Date Resolution Status Admit Date Cirrhosis of liver chronic October 082024 9:20am Metabolic dysfunction-associ ated steatotic liver disease (MASLD) chronic October 08, 2024 9:20am Atherosclerosis of coronary artery of [place] heart without angina pectoris chronic October 15, 2024 7 :57am Atrial flutter chronic October 15, 2024 7:57am Dilated cardiomyopathy chronic 2024 7:57am Essential hypertension chronic [facility] 2024 7:57am Pure hypercholesterolemia chronic October 15, 2024 7:57am Atherosclerosis of coronary artery of [place] heart without angina pectoris chronic January 15, 025 8:23am Atrial flutter chronic January 15, 2025 8:23am Dilated cardiomyopathy chronic Se pt2024 8:23am Essential hypertension chronic Se pt2024 8:23am Pure hypercholesterolemia chronic January 15, 2025 8:23am [facility] Work Phone: 1(416) 540-384502-26-2025 Radiology Diagnostic study note [facility] Imaging Services [address] [place] [id number] ABD Limited w/ Elastography MR#: [id number] Acct: [id number] Name: SEVERIANO HERNANDEZ Rep #: [id number] : 1955 M 69 From: Jesse Jovel MD PCP: Dr. Cliff Taylor MD Status: REG Jenni SREEKANTH Study:ABD Limited w/ Elastography Date of Exa m: 07/10/24 Exam# [id number] Ordering Dr: Kate Gong MD PROCEDURE: ABD LIMITED W/ ELASTOGRAPHY REASON FOR EXAM: Cirrhosis. COMPARISON: None. TECHNIQUE: Right upper quadrant abdominal ultrasound. Tariq ElastQ Imaging shear wave elastography for non-invasive assessment of liver tissue stiffness. Tariq EPIQ Elite. FINDINGS: LIVER: Size: Unremarkable Length: 15.6 cm cm Echotexture: Coarsened Contour: Normal Lesions: None identified Elastography: EQI Med: 8.73 kPa EQI Med Marilia: 1.71 m/s IQR/Med: 50 %* GALLBLADDER: Multiple gallstones. COMMON BILE DUCT: Normal measures 1.6 mm. PANCREAS: Obscured by bowel gas. Visualized portions of the right kidney are unremarkable. No right upper quadrant ascites. US/ABD Limited w/ Elastography IMPRESSION: MODERATE TO SEVERE HEPATIC FIBROSIS Reference Values: SRU <1.37 m/s (5.7kPa): No to mild fibrosis 1.37 m/s - 2.2 m/s: Moderate to severe fibrosis >2.2 m/s (15kPa): Significant fibrosis / cirrhosis METAVIR Score F2 or higher: 1.34 m/s (5.7kPa) F3 or higher: 1.55 m/s (7.3kPa) F4: 1.80 m/s (10kPa) * If the IQR/Med is >30%, the variance in the measurements is a large and the accuracy of the measurement may be in question. Reading Location: [id number] CC: Dr. Prieto Gong MD; Dr. 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 October 08, 2024 9 :20am [facility] Work Phone: 1(980) 732-240702-11-2025 Evaluation note* Diagnosis Onset Date Resolution Status Admit Date Cirrhosis of liver chronic 2024 9:25am Non-alcoholic fatty liver disease de leted June 25, 2024 9:25am Cirrhosis of liver chronic October 082024 9:20am Metabolic dysfunction-associ ated steatotic liver disease (MASLD) chronic October 08, 2024 9:20am Atrial flutter acute October 15, 2024 7:57am Dilated cardiomyopathy acute 2024 7:57am Essential hypertension acute [facility] 2024 7:57am Pure hypercholesterolemia acute October 15, 2024 7:57am Atherosclerosis of coronary artery of [place] heart without angina pectoris chronic October 15, 2024 7 :57am [facility] Work Phone: 1(829) 567-156201-27-2025 Evaluation note* Diagnosis Onset Date Resolution Status Admit Date Atrial flutter acute June 102024 8:52am Dilated cardiomyopathy acute [facility] 2024 8:52am Essential hypertension acute [facility] 2024 8:52am Muscle ache acute June 10, 2024 8:52am Pure hypercholesterolemia acute June 10, 2024 8:52am Atherosclerosis of coronary artery of [place] heart without angina pectoris chronic June 10 8:52am Cirrhosis of liver chronic 2024 9:25am Non-alcoholic fatty liver disease ch ronic June 25, 2024 9:25am [facility] Work Phone: 1(335) 947-130501-27-2025 Evaluation note* Diagnosis Onset Date Resolution Status Admit Date Atrial flutter acute June 102024 8:52am Dilated cardiomyopathy acute [facility] 2024 8:52am Essential hypertension acute [facility] 2024 8:52am Muscle ache acute June 10, 2024 8:52am Pure hypercholesterolemia acute June 10, 2024 8:52am Atherosclerosis of coronary artery of [place] heart without angina pectoris chronic June 10 8:52am Cirrhosis of liver chronic 2024 9:25am Non-alcoholic fatty liver disease de leted June 25, 2024 9:25am Cirrhosis of liver chronic October 082024 9:20am Metabolic dysfunction-associ ated steatotic liver disease (MASLD) chronic October 08, 2024 9:20am [facility] Work Phone: 1(625) 679-385401-02-2025 Evaluation note* Diagnosis Onset Date Resolution Status Admit Date Ascites acute May 16 10:03am SOB (shortness of breath) acute May 16, 2024 10:03am Cirrhosis of liver chronic 2024 10:03am Atrial flutter acute June 102024 8:52am Dilated cardiomyopathy acute 2024 8:52am Essential hypertension acute [facility] 2024 8:52am Muscle ache acute June 10, 2024 8:52am Pure hypercholesterolemia acute June 10, 2024 8:52am Atherosclerosis of coronary artery of [place] heart without angina pectoris chronic June 10 8:52am Cirrhosis of liver chronic ua 2024 9:25am Non-alcoholic fatty liver disease ch ronic June 25, 2024 9:25am [facility] Work Phone: 1(708) 869-841101-02-2025 [facility] Medical Records Department [address] [place] [address] History Physical Exam 05/16/24 1041 MR#: [id number] Acct: [id number] Name: SEVERIANO HERNANDEZ Rep #: [id number] : 1955 69 From: [facility] Friend DO PCP: Dr. Cliff Taylor MD Status:[facility] Location: [place] [address] HPI - General General Date of Admission: 05/16/24 Date of Service: 05/16/24 Chief Complaint: cirrhosis HPI Narrative SEVERIANO HERNANDEZ, is a 69 M who presents to the office today for hospital f/u. 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 He underwent liver biopsy which showed early cirrhosis. He had paracentesis with removal of 8 liters. MELD score of 15. Since then he has underwent cardiac catheterization and had some issues with carvedilol which sent him back to hospital. OV 11.12.24 Pt has been doing ok. He feels his abdomen is no longer distended w/ the diuretic therapy. He has no abdominal pain, n/v, constipation, diarrhea, jaundice, itchy skin or confusion [facility] Medical History Wears glasses Wrist injury Loss of consciousness Injury of back Dietary restriction Shortness of breath on exertion History of pain when walking History of edema History of echocardiogram History of stress test Cardiology follow-up encounter History of atrial fibrillation Non-smoker Coronary artery disease Hypertension Pure hypercholesterolemia Essential hypertension Atherosclerosis of coronary artery bypass graft without angina pectoris Non-ST elevation (NSTEMI) myocardial infarction White coat syndrome with hypertension RBBB Premature ventricular contraction Nonrheumatic aortic valve insufficiency Atherosclerosis of coronary artery of [place] heart without angina pectoris Non-alcoholic fatty liver disease Home Medications ???Medication ???Instructions ???Recorded ???Last Taken ???Type aspirin 81 mg tablet,delayed 81 mg PO DAILY [facility] 05/24/17 03/08/24 History release (Adult Aspirin Regimen) dapagliflozin propanediol 10 mg 10 mg PO QAM #60 tabs 03/08/24 Unknown Rx tablet spironolactone 25 mg tablet 25 mg PO QDAY #90 tabs 03/08/24 Unknown Rx apixaban 5 mg tablet (Eliquis) 5 mg PO BID #60 tabs 03/25/24 05/13/24 08:00 Rx lactulose 10 gram/15 mL (15 mL) 20 g (30 mL) PO BID 30 days #1,800 04/02/24 Unknown Rx oral solution mL carvedilol 12.5 mg tablet 6.25 mg (1/2 x 12.5 mg) PO BID #60 04/04/24 05/16/24 08:30 Rx tabs furosemide 40 mg tablet 40 mg PO .COMPLEX #180 tabs 04/04/24 Unknown Rx Allergy/AdvReac Type Severity Reaction Status Date / Time pravastatin sodium (From Allergy Unknown Verified 05/13/24 11:36 Pravachol) carvedilol (From Coreg) AdvReac Intermediate diarrhea Verified 05/13/24 11:36 atorvastatin calcium (From AdvReac Pain in Verified 05/13/24 11:36 Lipitor) joints gemfibrozil AdvReac myalgia Verified 05/13/24 11:36 Family History Mother CAD (coronary artery disease) Hypertension Grandmother Myocardial infarction Surgical History History of cardiac catheterization Hx of colonoscopy History of coronary artery stent placement History of esophagogastroduodenoscopy (EGD) ( 2014) H/O coronary artery bypass surgery ( 08/12/15) Social History Smoking Status: Never smoker alcohol intake: current details: rare substance use type: does not use ROS Constitutional Constitutional: Reports weight loss; Denies fever(s) Eyes Eyes: Reports systems reviewed and no addt'l complaints, except as documented ENT HEENT: Reports systems reviewed and no addt'l complaints, except as documented Cardiovascular Cardiovascular: Reports dyspnea at rest, dyspnea on exertion, pedal edema and weakness in extremities; Denies chest pain at rest, chest pain with activity, edema, palpitations or paroxysmal nocturnal dyspnea Respiratory/Chest Respiratory/Chest: Reports shortness of breath with exertion; Denies dyspnea on exertion, productive cough or shortness of breath at rest Gastrointestinal Gastrointestinal: Reports abdominal pain; Denies change in bowel habits, nausea, vomiting or weight changes Genitourinary Genitourinary: Denies difficulty urinating Musculoskeletal Musculoskeletal: Denies joint stiffness or muscle weakness Integumentary Integumentary: Denies lesions Neurologic Neurologic: Denies dizziness or syncope Psychiatric Psychiatric: Denies anxiety Endocrine Endocrinology: Denies excessive sweating or fatigue Hematologic/Lymphatic Hematologic/Lymphatic: Denies anemia Allergic/Immunologic Allergic/I (more content not included)...[facility] noteNo assessment information availableWMer[facility] Work Phone: Progress note Author Prieto Gong [facility] Note Date/Time February 04, 2025 8:52am [facility] [address] [place] [address] OFFICE VISIT Date of Service: 02/04/25 MR#: [id number] Acct: [id number] Name: SEVERIANO HERNANDEZ Rep #: [id number] : 1955 Provider: Dr. Melvin Gong MD Age/Sex: 70/M Location: [facility] Status: Signed Intake Vital Signs 10/08/24 09:52 01/15/25 08:23 02/04/25 08:33 Height 6 ft 6 ft 6 ft Weight: 188 lb BMI 25.4 BP 130/68 H Blood Pressure Location Rt brachial Position Sitting Respiration 79 H Pulse Oximetry (%) 97 Oxygen Delivery Method room air Intake Visit Reasons: 4 M FU Allergies sacubitril (From Entresto) Allergy (Unknown, Verified 02/04/25 08:33) Itching valsartan (From Entresto) Allergy (Unknown, Verified 02/04/25 08:33) Itching pravastatin sodium (From Pravachol) Allergy (Verified 02/04/25 08:33) Unknown atorvastatin calcium (From Lipitor) Adverse Reaction (Verified 02/04/25 08:33) Pain in joints gemfibrozil Adverse Reaction (Verified 02/04/25 08:33) myalgia Medications ?Medication ?Instructions ?Recorded ?Confirmed ?Type aspirin 81 mg tablet,delayed 81 mg PO DAILY [facility] 05/24/17 02/04/25 History release (Adult Aspirin Regimen) furosemide 40 mg tablet 40 mg PO .COMPLEX #180 tabs 04/04/24 02/04/25 Rx carvedilol 12.5 mg tablet 6.25 mg (1/2 x 12.5 mg) PO B ID #90 05/28/24 02/04/25 Rx tabs apixaban 5 mg tablet (Eliquis) 5 mg PO .COMPLEX #180 t abs 09/05/24 02/04/25 Rx tramadol 50 mg tablet 50 mg PO QDAY PRN 10/15/24 0 02/04/25 History dapagliflozin propanediol 10 mg 10 mg PO QAM #60 tabs 10/30/24 02/04/25 Rx tablet lactulose 10 gram/15 mL (15 mL) 20 g (30 mL) PO BID 30 days #1,800 11/05/24 02/04/25 Rx oral solution mL losartan 50 mg tablet 50 mg PO QDAY #90 tabs 12/1502/04/25 Rx spironolactone 50 mg tablet 25 mg (1/2 x 50 mg) PO OPAL LY 1 02/04/25 02/04/25 Rx month #15 tabs Have you fallen in the past year?: No [facility] Medical History Wears glasses Wrist injury Loss of consciousness Injury of back Dietary restriction Shortness of breath on exertion History of pain when walking History of edema History of echocardiogram History of stress test Cardiology follow-up encounter History of atrial fibrillation Non-smoker Coronary artery disease Hypertension Pure hypercholesterolemia Essential hypertension Atherosclerosis of coronary artery bypass graft without angina pectoris Non-ST elevation (NSTEMI) myocardial infarction White coat syndrome with hypertension RBBB Premature ventricular contraction Nonrheumatic aortic valve insufficiency Atherosclerosis of coronary artery of [place] heart without angina pectoris Surgical History History of cardiac catheterization Hx of colonoscopy History of coronary artery stent placement History of esophagogastroduodenoscopy (EGD) (~2014) H/O coronary artery bypass surgery (~08/12/15) Family History Mother CAD (coronary artery disease) Hypertension Grandmother Myocardial infarction Social History Smoking Status: Never smoker alcohol intake: current details: rare substance use type: does not use HPI HPI Details: SEVERIANO HERNANDEZ, is a 70 M who presents to the office today for follow up. Patient denies personal history of allergic or autoimmune disease. His sister has asthma and allergy. Denies first-degree family history of autoimmune disease .02.05- Liver bx, Liver parenchymal tissue with increased portal, periportal fibrosis, bridging fibrosis and changes suggestive of early cirrhosis OV 03.26.24- hospital f/u. 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 He underwent liver biopsy which showed early cirrhosis. He had paracentesis with removal of 8 liters. MELD score of 15. Since then he has underwent cardiac catheterization and had some issues with carvedilol which senthim back to hospital. EGD 1.2.25- Normal esophagus, nodular mucosa in the duodenal bulb. Path: Fragments of duodenal mucosa with moderate chronic inflammation and extensive gastric metaplasia OV 2.11.25- Pt well since last visit. States he is having some weakness but denies fatigue, sob, swelling, dizziness or confusion. Is not having abdominal pain. BM are normal once a day. No other concerns. Early cirrhosis diagnosed with liver biopsy. US abd/ elastography 2..25- Liver measures 15.6 cm, Stiffness 8.73 Ov 5.27.25- Pt well since last visit. States he has been having some weakness and joint pain. Denies dizziness, confusion or swelling. BMs are normal. No other concerns. Complain of mild gastric upset/sometimes diarrhea on ursodiol 9.3.25- Fib-4 1.60 OV 9.23.25- Pt well since last visit. Denies dizziness, weakness or confusion. Denies swelling. BMs are normal. No acute issues. Patient complaining of bilateral nipple pain after increasing the dose of his spironolactone. ROS Const Constitutional: No fatigue, fever(s), weakness or weight change Eyes Eyes: No blurry vision, change in vision or double vision ENT ENT: No difficulty swallowing Resp Respiratory: No shortness of breath (Dyspnea on exertion) or wheezing Cardio Cardiology: No chest pain at rest or dyspnea on exertion Gastro GI: No abdominal pain, belching, bloating, change in bowel habits, change in stool character, coffee ground emesis, constipation, cramping, diarrhea, heartburn, difficulty swallowing, feeling full early, excessive flatus, incontinent of stools, Vomiting blood/hematemesis, Blood in stool, loose stools,Black,tarry stools, nausea/dyspepsia, pain with swallowing, vomiting or other Genitourinary Male: No difficulty urinating or burning urination Musc Musculoskeletal: Positive for joint pain, muscle cramps and muscle weakness Skin Skin: No yellowing of the eye or itchy eyes Neuro Neurology: No weakness Psych Psychiatric: No anxiety and No depression Endo Endocrine: No fatigue or weight change Aller/Imm Allergy/Immunologic: No itchy eyes or wheezing Taco/Lymp Hematologic/Lymphatic: No easy bleeding or easy bruising Exam Const General: cooperative, no acute distress and well developed Nutritional Appearance: average body habitus Orientation: alert, awake and oriented x3 Other: Doing well. BMI 25.4 kg/m? HENAZ Head: normocephalic and atraumatic Nose: external nose normal Face and sinus: normal facial exam Mouth: moist mucous membranes Eyes Pupils: PERRL EOM: EOM intact bilaterally Neck Neck: normal visual inspection, no meningeal signs and trachea midline Carotids: no bruits Chest Chest palpation & inspection: normal inspection of the chest Resp Effort & Inspection: normal respiratory effort and symmetric chest movement Auscultation: Bilateral: Clear to Auscultation Cardio Palpation: normal PMI Rhythm: abnormal rhythm Heart Sounds: S1 normal and S2 normal Other: Irregular rhythm. A-fib no murmur GI Auscultation: normal bowel sounds Percussion: normal to percussion Palpation: soft and no guarding Other: No tenderness. Clinically no palpable ascites. Liver not enlarged. Spleen is not palpable General: bimanual renal exam normal bilaterally, bladder normal to inspection and bladder normal to palpation Musc Musculoskeletal: No joint tenderness, joint redness, joint warmth or decreased range of motion Thoracic/Lumbar Spine: thor and lumb spine abnorm to inspection Skin General: rashes and/or lesions noted, turgor normal and no erythema Wounds: wound noted Other: No significant pedal edema Neuro General: patient alert, patient awake, patient oriented x3 and no focal motor deficits Speech: speech normal Motor: muscle tone normal throughout Extrem General: normal exam except as noted Psych Appearance: grossly normal Mood: congruent mood Affect: normal affect Attitude: cooperative Assessment and Plan Assessment and Plan (1) Cirrhosis of liver: Status: Chronic Qualifiers: Hepatic cirrhosis type: unspecified hepatic cirrhosis Ascites presence:with ascites Qualified Code(s): K74.60 - Unspecified cirrhosis of liver; R18.8 - Other ascites Plan: Follow-up for cirrhosis. Patient had paracentesis about 8 L in February 2024. Liver biopsy reviewed with the patient shows early cirrhosis with no significantiron deposition but portal area shows ductal dilatation and bile accumulation. Shows periportal and bridging fibrosis. MELD sodium score 16 as per all MELD labs in June 2025 He is taking furosemide, spironolactone, carvedilol, lactulose, baby aspirin andEliquis Recent EGD shows normal esophagus, no gross lesion in his stomach but nodular mucosa in duodenal bulb. Pathology shows chronic inflammation and gastric metaplastic changes. Patient also has CHF,, CAD, chronic A-fib had quadruple bypass surgery in 2016. On Eliquis. Last echo in September 2024 shows improvement in EF from 20 to 25%. LV moderately dilated. No significant valvular abnormality. Follows Dr. Mccall Patient complained of bilateral nipple pain. Known side effect of spironolactone. Spironolactone dose decreased to 25 mg daily. MELD labs ordered. Patient IgE elevated. Total IgG normal but IgG 1 and IgG4 elevated. Patient denies personal history of allergic or autoimmune disease. His sister has asthma and allergy. Denies first-degree family history of autoimmune disease Autoimmune hepatitis and PBC profile ordered Follow-up in 4 months (2) Metabolic dysfunction-associated steatotic liver disease (MASLD): Status: Chronic Plan: As mentioned above Orders: Orders Comprehensive Metabolic Profil 1 Week K74.60 - Unspecified cirrhosis of liver, K76.0 - Fatty (change of) liver, not elsewhere classified, R18.8 - Other ascites Prothrombin Time w/INR 1 Week K74.60 - Unspecified cirrhosis of liver, K76.0 - Fatty (change of) liver, not elsewhere classified, R18.8 - Other ascites [facility] Misc. 1 Week K74.60 - Unspecified cirrhosis of liver, K76.0 - Fatty (change of) liver, not elsewhere classified, R18.8 - Other ascites [facility] Misc. 2 1 Week [facility] Misc. 3 1 Week Medications: Changed From spironolactone Hold if serum potassium is more than 5.0. 50 mg PO DAILY 1 month 30 tabs 4RF To spironolactone Hold if serum potassium is more than 5.0. 25 mg (1/2 x 50 mg) PO DAILY 15 tabs 4RF 1 month Coding Level of Care Code Established Pt Off vis,est,level 4 Patient Type Established History Detailed Exam Detailed Medical Decision Making Moderate Complexity Diagnoses Cirrhosis of liver with ascites, unspecified hepatic cirrhosis type K74.60; R18.8 Hepatic cirrhosis type: unspecified hepatic cirrhosis Ascites presence: with ascites Metabolic dysfunction-associated steatotic liver disease (MASLD) K76.0 Clinical Quality Measures Falls Risk Screening/Assistive Devices Have you fallen in the past year?: No 02/04/25 0901 <Electronically signed by Prieto Gong MD> Date _ Prieto Gaspar Signature: Date (if applicable) CC: Dr. Cliff Taylor MD ~ [facility] Work Phone: Reason for referral (narrative)No reason for referral information availableWMercy [facility] Work Phone: Summary Purpose Family History No Family History Records Found Relationship Condition Age at Onset Recorded Date/T hansel mother Coronary artery disease Unknown Relationship Condition Age at Onset Recorded Date/T hansel mother Coronary artery disease Unknown Hypertension Unknown grandmother Myocardial infarction Unknown Advance Directives No Advanced Directives Records Found Advance Directive Response Recorded Date/ Time Advance Directives Yes July 27, 6:09am Living Will Yes August 02, 2018 9:21am Power of Director Of Content Marketing Yes August 02 9:21am Advance Directive Response Recorded Date/ Time Advance Directives Yes July 27, 7:09am Living Will Yes August 02, 2018 10:21am Power of Director Of Content Marketing Yes August 02 10:21am Advance Directive Response Recorded Date/ Time Living Will Yes March 08 7:30am Power of Director Of Content Marketing Yes March 08, 2024 7:30am Living Will Yes May 13 12:39pm Power of Director Of Content Marketing Yes May 13, 2024 12:39pm Name of Medical Power of Director Of Content Marketing May 13, 2024 12:39pm Advance Directives Yes March 08, 2024 7:30am Advance Directive Response Recorded Date/ Time Living Will Yes March 08 7:30am Do you have a Healthcare Power of Director Of Content Marketing? Yes March 08, 2024 7:30am Advance Directives Yes March 08, 2024 7:30am Advance Directive Response Recorded Date/ Time Advance Directives Yes March 08, 2024 7:30am Chief Complaint and Reason for Visit Chief Complaint Admit Date EORDERS April 02, 2024 3:25pm CARDIOMYOPATHY May 21, 2024 7: 48am 3 M FU June 10, 2024 8 :52am INT LABS June 10, 2024 9 :36am 3 M FU June 25, 2024 9:25am JUST CAME FROM OFFICE ORDER WAS NOT IN Y ET June 25, 2024 10:06am INCLUDE SPLEEN, ASCITES July 10, 2 025 7:41am Reason for Visit Admit Date Ascites May 16, 2024 10 :03am SOB (shortness of breath) May 16 025 10:03am Cirrhosis of liver May 16, 2024 10 :03am Atrial flutter June 10, 2024 8 :52am Dilated cardiomyopathy June 10 8:52am Essential hypertension June 10 8:52am Muscle ache June 10, 2024 8 :52am Pure hypercholesterolemia June 10, 2024 8:52am Atherosclerosis of coronary artery of [place] heart without angina pectoris June 10, 2024 8:52am Cirrhosis of liver June 25, 2024 9:25am Non-alcoholic fatty liver disease 2024 9:25am Chief Complaint Admit Date 3 M FU June 10, 2024 8 :52am INT LABS June 10, 2024 9 :36am 3 M FU June 25, 2024 9:25am JUST CAME FROM OFFICE ORDER WAS NOT IN Y ET June 25, 2024 10:06am INCLUDE SPLEEN, ASCITES July 10, 025 7:41am Amb Documentation September 20, 2024 11:57a m ABNORMAL EKG September 27, 2024 10:38 am Reason for Visit Admit Date Atrial flutter June 10, 2024 8 :52am Dilated cardiomyopathy June 10 8:52am Essential hypertension June 10 8:52am Muscle ache June 10, 2024 8 :52am Pure hypercholesterolemia June 10, 2024 8:52am Atherosclerosis of coronary artery of [place] heart without angina pectoris June 10, 2024 8:52am Cirrhosis of liver June 25, 2024 9:25am Non-alcoholic fatty liver disease ua 2024 9:25am Chief Complaint Admit Date 3 M FU June 10, 2024 8 :52am INT LABS June 10, 2024 9 :36am 3 M FU June 25, 2024 9:25am JUST CAME FROM OFFICE ORDER WAS NOT IN Y ET June 25, 2024 10:06am INCLUDE SPLEEN, ASCITES July 10, 2 025 7:41am Amb Documentation September 20, 2024 11:57a m ABNORMAL EKG September 27, 2024 10:38 am 3 M FU October 08, 2024 9:20a m Reason for Visit Admit Date Atrial flutter June 10, 2024 8 :52am Dilated cardiomyopathy June 10 8:52am Essential hypertension June 10 8:52am Muscle ache June 10, 2024 8 :52am Pure hypercholesterolemia June 10, 2024 8:52am Atherosclerosis of coronary artery of [place] heart without angina pectoris June 10, 2024 8:52am Cirrhosis of liver June 25, 2024 9:25am Non-alcoholic fatty liver disease 2024 9:25am Cirrhosis of liver October 08, 2024 9:20a m Metabolic dysfunction-associ ated steatotic liver disease (MASLD) October 08, 2024 9:20am Chief Complaint Admit Date 3 M FU June 25, 2024 9:25am JUST CAME FROM OFFICE ORDER WAS NOT IN Y ET June 25, 2024 10:06am INCLUDE SPLEEN, ASCITES July 10 025 7:41am Amb Documentation September 20, 2024 11:57a m ABNORMAL EKG September 27, 2024 10:38 am 3 M FU October 08, 2024 9:20a m INT LABS October 08, 2024 10:31 am Reason for Visit Admit Date Cirrhosis of liver June 25, 2024 9:25am Non-alcoholic fatty liver disease ua 2024 9:25am Cirrhosis of liver October 08, 2024 9:20a m Metabolic dysfunction-associ ated steatotic liver disease (MASLD) October 08, 2024 9:20am Chief Complaint Admit Date 3 M FU June 25, 2024 9:25am JUST CAME FROM OFFICE ORDER WAS NOT IN Y ET June 25, 2024 10:06am INCLUDE SPLEEN, ASCITES July 10, 2 025 7:41am Amb Documentation September 20, 2024 11:57a m ABNORMAL EKG September 27, 2024 10:38 am 3 M FU October 08, 2024 9:20a m INT LABS October 08, 2024 10:31 am 4 M FU October 15, 2024 7:57a m Reason for Visit Admit Date Cirrhosis of liver June 25, 2024 9:25am Non-alcoholic fatty liver disease Februa 2024 9:25am Cirrhosis of liver October 08, 2024 9:20a m Metabolic dysfunction-associ ated steatotic liver disease (MASLD) October 08, 2024 9:20am Atrial flutter October 15, 2024 7:57a m Dilated cardiomyopathy October 15, 2024 7: 57am Essential hypertension October 15, 2024 7: 57am Pure hypercholesterolemia October 15, 2024 7:57am Atherosclerosis of coronary artery of [place] heart without angina pectoris October 15, 2024 7:57am Chief Complaint Admit Date 3 M FU June 25, 2024 9:25am JUST CAME FROM OFFICE ORDER WAS NOT IN Y ET June 25, 2024 10:06am INCLUDE SPLEEN, ASCITES July 10, 2 025 7:41am Amb Documentation September 20, 2024 11:57a m ABNORMAL EKG September 27, 2024 10:38 am 3 M FU October 08, 2024 9:20a m INT LABS October 08, 2024 10:31 am 4 M FU October 15, 2024 7:57a m INT LABS October 15, 2024 9:12a m Chief Complaint Admit Date Amb Documentation September 20, 2024 11:57a m ABNORMAL EKG September 27, 2024 10:38 am 3 M FU October 08, 2024 9:20a m INT LABS October 08, 2024 10:31 am 4 M FU October 15, 2024 7:57a m INT LABS October 15, 2024 9:12a m E ORDER November 06, 2024 11:2 0am Reason for Visit Admit Date Cirrhosis of liver October 08, 2024 9:20a m Metabolic dysfunction-associ ated steatotic liver disease (MASLD) October 08, 2024 9:20am Atrial flutter October 15, 2024 7:57a m Dilated cardiomyopathy October 15, 2024 7: 57am Essential hypertension October 15, 2024 7: 57am Pure hypercholesterolemia October 15, 2024 7:57am Atherosclerosis of coronary artery of [place] heart without angina pectoris October 15, 2024 7:57am Chief Complaint Admit Date Amb Documentation September 20, 2024 11:57a m ABNORMAL EKG September 27, 2024 10:38 am 3 M FU October 08, 2024 9:20a m INT LABS October 08, 2024 10:31 am 4 M FU October 15, 2024 7:57a m INT LABS October 15, 2024 9:12a m E ORDER November 06, 2024 11:2 0am E ORDER November 25, 2024 4:37 pm 3-4 M FU January 15, 2025 8:23am Reason for Visit Admit Date Cirrhosis of liver October 08, 2024 9:20a m Metabolic dysfunction-associ ated steatotic liver disease (MASLD) October 08, 2024 9:20am Atrial flutter October 15, 2024 7:57a m Dilated cardiomyopathy October 15, 2024 7: 57am Essential hypertension October 15, 2024 7: 57am Pure hypercholesterolemia October 15, 2024 7:57am Atherosclerosis of coronary artery of [place] heart without angina pectoris October 15, 2024 7:57am Atrial flutter January 15, 2025 8:23am Dilated cardiomyopathy January 15 8:23am Essential hypertension January 15 8:23am Pure hypercholesterolemia January 15, 2025 8:23am Atherosclerosis of coronary artery of [place] heart without angina pectoris January 15, 2025 8:23am Chief Complaint Admit Date ABNORMAL EKG September 27, 2024 10:38 am 3 M FU October 08, 2024 9:20a m INT LABS October 08, 2024 10:31 am 4 M FU October 15, 2024 7:57a m INT LABS October 15, 2024 9:12a m E ORDER November 06, 2024 11:2 0am E ORDER November 25, 2024 4:37 pm 3-4 M FU January 15, 2025 8:23am E ORDER January 15, 2025 9:26am Reason for Visit Admit Date Cirrhosis of liver October 08, 2024 9:20a m Metabolic dysfunction-associ ated steatotic liver disease (MASLD) October 08, 2024 9:20am Atherosclerosis of coronary artery of [place] heart without angina pectoris October 15, 2024 7:57am Atrial flutter October 15, 2024 7:57a m Dilated cardiomyopathy October 15, 2024 7: 57am Essential hypertension October 15, 2024 7: 57am Pure hypercholesterolemia October 15, 2024 7:57am Atherosclerosis of coronary artery of [place] heart without angina pectoris January 15, 2025 8:23am Atrial flutter January 15, 2025 8:23am Dilated cardiomyopathy January 15 8:23am Essential hypertension January 15 8:23am Pure hypercholesterolemia January 15, 2025 8:23am Chief Complaint Admit Date 4 M FU October 15, 2024 7:57a m INT LABS October 15, 2024 9:12a m E ORDER November 06, 2024 11:2 0am E ORDER November 25, 2024 4:37 pm 3-4 M FU January 15, 2025 8:23am E ORDER January 15, 2025 9:26am 4 M FU February 04, 2025 8:29am INT LABS February 04, 2025 8:58am CHF February 10, 2025 1:48pm Reason for Visit Admit Date Atherosclerosis of coronary artery of [place] heart without angina pectoris October 15, 2024 7:57am Atrial flutter October 15, 2024 7:57a m Dilated cardiomyopathy October 15, 2024 7: 57am Essential hypertension October 15, 2024 7: 57am Pure hypercholesterolemia October 15, 2024 7:57am Atherosclerosis of coronary artery of [place] heart without angina pectoris January 15, 2025 8:23am Atrial flutter January 15, 2025 8:23am Dilated cardiomyopathy January 15 8:23am Essential hypertension January 15 8:23am Pure hypercholesterolemia January 15, 2025 8:23am Cirrhosis of liver February 04, 2025 8:29am Metabolic dysfunction-associ ated steatotic liver disease (MASLD) February 04, 2025 8:29am Chief Complaint Admit Date E ORDER November 06, 2024 11:2 0am E ORDER November 25, 2024 4:37 pm 3-4 M FU January 15, 2025 8:23am E ORDER January 15, 2025 9:26am 4 M FU February 04, 2025 8:29am INT LABS February 04, 2025 8:58am CHF February 10, 2025 1:48pm Reason for Visit Admit Date Atherosclerosis of coronary artery of [place] heart without angina pectoris January 15, 2025 8:23am Atrial flutter January 15, 2025 8:23am Dilated cardiomyopathy January 15 8:23am Essential hypertension January 15 8:23am Pure hypercholesterolemia January 15, 2025 8:23am Cirrhosis of liver February 04, 2025 8:29am Metabolic dysfunction-associ ated steatotic liver disease (MASLD) February 04, 2025 8:29am Additional Source Comments (unrecognized sect ion and content) No Status Records FoundNo Status Records Found INFORMATION SOURCE (unrecogn ized section and content) DATE CREATED AUTHOR 11/03/2017 [employer] ([place]) DATE CREATED AUTHOR AUTHOR'S ORGANIZ ATION 03/12/2025 [facility] Goals (unrecognized section and content) Goals may be documented in a n alternate sectionGoals may be documented in an alternate sectionGoals may be documented in an alternate sectionGoals may be documented in an alternate sectionGoals may be documented in an alternate sectionGoals may be documented in an alternate sectionGoals may be documented in an alternate sectionGoals may be documented in an alternate sectionGoals may be documented in an alternate sectionGoals may be documented in an alternate sectionGoals may be documented in an alternate sectionGoals may be documented in an alternate sectionGoals may be documented in an alternate sectionGoals may be documented in an alternate sectionGoals may be documented in an alternate section Care Teams (unrecognized sec tion and content) Team Status: Active Member Role Status Dates Dr. Cliff Taylor MD Family Provider Active Dr. Cliff Taylor MD Primary Care Provider Active Team Status: Inactive Member Role Status Dates Dr. Cliff Taylor MD Primary Care Provider, Attending Provider Active Team Status: Active Member Role Status Dates Dr. Cliff Taylor MD Primary Care Provider Active Team Status: Inactive Member Role Status Dates Dr. Cliff Taylor MD Primary Care Provider Active Start: April 02, 2024 End: April 02, 2024 Stefanie Dunaway PA, PA Attending Provider Active Start: April 02, 2024 End: April 02, 2024 Stefanie OLIVA, PA Referring Provider Active Start: April 02, 2024 End: April 02, 2024 Team Status: Inactive Member Role Status Dates Dr. Cliff Taylor MD Primary Care Provider Active Start: May 16, 2024 End: May 16, 2024 Dr. Cliff Taylor MD Referring Provider Active Start: May 16, 2024 End: May 16, 2024 Dr. Gerald Carroll DO Attending Provider Active Start: May 16, 2024 End: May 16, 2024 Team Status: Active Member Role Status Dates Dr. Cliff Taylor MD Primary Care Provider Active Start: May 16, 2024 Dr. Cliff Taylor MD Referring Provider Active Start: May 16, 2024 Dr. Gerald Carroll DO Attending Provider Active Start: May 16, 2024 Dr. Gerald Carroll DO Other Provider Active St art: May 16, 2024 Team Status: Inactive Member Role Status Dates Dr. Cliff Taylor MD Primary Care Provider Active Start: May 21, 2024 End: May 21, 2024 Stefanie Dunaway PA, PA Attending Provider Active Start: May 21, 2024 End: May 21, 2024 Stefanie Dunaway PA, PA Referring Provider Active Start: May 21, 2024 End: May 21, 2024 Team Status: Active Member Role Status Dates Dr. Cliff Taylor MD Primary Care Provider Active Start: May 21, 2024 Dr. Ivan Mccall MD Attending Provider Active S tart: May 21, 2024 Team Status: Inactive Member Role Status Dates Dr. Cliff Taylor MD Primary Care Provider Active Start: May 24, 2024 End: May 24, 2024 PJ Graff Attending Provider Active Start: May 24, 2024 End: May 24, 2024 PJ Graff Referring Provider Active Start: May 24, 2024 End: May 24, 2024 Team Status: Inactive Member Role Status Dates Dr. Cliff Taylor MD Primary Care Provider Active Start: June 10, 2024 End: June 10, 2024 Dr. Cliff Taylor MD Referring Provider Active Start: June 10, 2024 End: June 10, 2024 Stefanie Dunaway PA, PA Attending Provider Active Start: June 10, 2024 End: June 10, 2024 Team Status: Inactive Member Role Status Dates Dr. Cliff Taylor MD Primary Care Provider Active Start: June 10, 2024 End: June 10, 2024 Stefanie Dunaway PA, PA Attending Provider Active Start: June 10, 2024 End: June 10, 2024 Stefanie OLIVA PA Referring Provider Active Start: June 10, 2024 End: June 10, 2024 Team Status: Inactive Member Role Status Dates Dr. Prieto Gong MD Attending Provider Active Start: June 25, 2024 End: June 25, 2024 Dr. Cliff Taylor MD Primary Care Provider Active Start: June 25, 2024 End: June 25, 2024 Dr. Cliff Taylor MD Referring Provider Active Start: June 25, 2024 End: June 25, 2024 Team Status: Inactive Member Role Status Dates Dr. Cliff Taylor MD Primary Care Provider Active Start: June 25, 2024 End: June 25, 2024 Dr. Prieto Gong MD Attending Provider Active Start: June 25, 2024 End: June 25, 2024 Dr. Prieto Gong MD Referring Provider Active Start: June 25, 2024 End: June 25, 2024 Team Status: Inactive Member Role Status Dates Dr. Cliff Taylor MD Primary Care Provider Active Start: July 10, 2024 End: July 10, 2024 Dr. Prieto Gong MD Attending Provider Active Start: July 10, 2024 End: July 10, 2024 Dr. Prieto Gong MD Referring Provider Active Start: July 10, 2024 End: July 10, 2024 Team Status: Active Member Role Status Dates Dr. Cliff Taylor MD Primary Care Provider Active Start: July 16, 2024 Dr. Cliff Taylor MD Attending Provider Active Start: July 16, 2024 Team Status: Inactive Member Role Status Dates Dr. Cliff Taylor MD Primary Care Provider Active Start: July 16, 2024 End: July 16, 2024 Dr. Cliff Taylor MD Attending Provider Active Start: July 16, 2024 End: July 16, 2024 Team Status: Active Member Role Status Dates Dr. Cliff Taylor MD Primary Care Provider Active Start: September 20, 2024 Laila Boothe Attending Provider Active Start: 2024 Team Status: Inactive Member Role Status Dates Dr. Cliff Taylor MD Primary Care Provider Active Start: September 27, 2024 End: September 27, 2024 Stefanie OLIVA PA Attending Provider Active Start: September 27, 2024 End: September 27, 2024 Stefanie OLIVA PA Referring Provider Active Start: September 27, 2024 End: September 27, 2024 Team Status: Active Member Role Status Dates Dr. Cliff Taylor MD Primary Care Provider Active Start: September 27, 2024 Dr. Ivan Mccall MD Attending Provider Active S tart: September 27, 2024 Team Status: Inactive Member Role Status Dates Dr. Cliff Taylor MD Primary Care Provider Active Start: October 08, 2024 End: October 08, 2024 Dr. Cliff Taylor MD Referring Provider Active Start: October 08, 2024 End: October 08, 2024 Dr. Prieto Gong MD Attending Provider Active Start: October 08, 2024 End: October 08, 2024 Team Status: Inactive Member Role Status Dates Dr. Cliff Taylor MD Primary Care Provider Active Start: October 08, 2024 End: October 08, 2024 Dr. Prieto Gong MD Attending Provider Active Start: October 08, 2024 End: October 08, 2024 Dr. Prieto Gong MD Referring Provider Active Start: October 08, 2024 End: October 08, 2024 Team Status: Inactive Member Role Status Dates Dr. Cliff Taylor MD Primary Care Provider Active Start: October 15, 2024 End: October 15, 2024 Dr. Cliff Taylor MD Referring Provider Active Start: October 15, 2024 End: October 15, 2024 Norris Grigsby ART SUPERVISOR, ART SUPERVISOR-C Attending Provider Active S tart: October 15, 2024 End: October 15, 2024 Team Status: Inactive Member Role Status Dates Dr. Cliff Taylor MD Primary Care Provider Active Start: October 15, 2024 End: October 15, 2024 Norris Grigsby ART SUPERVISOR, ART SUPERVISOR-C Attending Provider Active S tart: October 15, 2024 End: October 15, 2024 Norris Grigsby ART SUPERVISOR, ART SUPERVISOR-C Referring Provider Active S tart: October 15, 2024 End: October 15, 2024 Team Status: Active Member Role/Relationship Status Dates Dr. Cliff Taylor MD Primary Care Provider Active Team Status: Inactive Member Role/Relationship Status Dates Dr. Cliff Taylor MD Primary Care Provider Active Start: July 16, 2024 End: July 16, 2024 Dr. Cliff Taylor MD Attending Provider Active Start: July 16, 2024 End: July 16, 2024 Team Status: Active Member Role/Relationship Status Dates Dr. Cliff Taylor MD Primary Care Provider Active Start: September 20, 2024 Laila Boothe Attending Provider Active Start: 2024 Team Status: Inactive Member Role/Relationship Status Dates Dr. Cliff Taylor MD Primary Care Provider Active Start: September 27, 2024 End: September 27, 2024 Stefanie Dunaway PA, PA Attending Provider Active Start: September 27, 2024 End: September 27, 2024 Stefanie Dunaway PA, PA Referring Provider Active Start: September 27, 2024 End: September 27, 2024 Team Status: Active Member Role/Relationship Status Dates Dr. Cliff Taylor MD Primary Care Provider Active Start: September 27, 2024 Dr. Ivan Mccall MD Attending Provider Active S tart: September 27, 2024 Team Status: Inactive Member Role/Relationship Status Dates Dr. Cliff Taylor MD Primary Care Provider Active Start: October 08, 2024 End: October 08, 2024 Dr. Cliff Taylor MD Referring Provider Active Start: October 08, 2024 End: October 08, 2024 Dr. Prieto Gong MD Attending Provider Active Start: October 08, 2024 End: October 08, 2024 Team Status: Inactive Member Role/Relationship Status Dates Dr. Cliff Taylor MD Primary Care Provider Active Start: October 08, 2024 End: October 08, 2024 Dr. Prieto Gong MD Attending Provider Active Start: October 08, 2024 End: October 08, 2024 Dr. Prieto Gong MD Referring Provider Active Start: October 08, 2024 End: October 08, 2024 Team Status: Inactive Member Role/Relationship Status Dates Dr. Cliff Taylor MD Primary Care Provider Active Start: October 15, 2024 End: October 15, 2024 Dr. Cliff Taylor MD Referring Provider Active Start: October 15, 2024 End: October 15, 2024 Norris Grigsby ART SUPERVISOR, ART SUPERVISOR-C Attending Provider Active S tart: October 15, 2024 End: October 15, 2024 Team Status: Inactive Member Role/Relationship Status Dates Dr. Cliff Taylor MD Primary Care Provider Active Start: October 15, 2024 End: October 15, 2024 Norris Grigsby ART SUPERVISOR, ART SUPERVISOR-C Attending Provider Active S tart: October 15, 2024 End: October 15, 2024 Norris Grigsby ART SUPERVISOR, ART SUPERVISOR-C Referring Provider Active S tart: October 15, 2024 End: October 15, 2024 Team Status: Inactive Member Role/Relationship Status Dates Dr. Cliff Taylor MD Primary Care Provider Active Start: November 06, 2024 End: November 06, 2024 Norris Grigsby ART SUPERVISOR, ART SUPERVISOR-C Attending Provider Active S tart: November 06, 2024 End: November 06, 2024 Norris Grigsby ART SUPERVISOR, ART SUPERVISOR-C Referring Provider Active S tart: November 06, 2024 End: November 06, 2024 Team Status: Active Member Role/Relationship Status Dates Dr. Cliff Taylor MD Primary Care Provider Active Start: September 20, 2024 Laila Boothe Attending Provider Active Start: 2024 Team Status: Inactive Member Role/Relationship Status Dates Dr. Cliff Taylor MD Primary Care Provider Active Start: September 27, 2024 End: September 27, 2024 Stefanie OLIVA, PA Attending Provider Active Start: September 27, 2024 End: September 27, 2024 Stefanie Dunaway PA, PA Referring Provider Active Start: September 27, 2024 End: September 27, 2024 Team Status: Active Member Role/Relationship Status Dates Dr. Cliff Taylor MD Primary Care Provider Active Start: September 27, 2024 Dr. Ivan Mccall MD Attending Provider Active S tart: September 27, 2024 Team Status: Inactive Member Role/Relationship Status Dates Dr. Cliff Taylor MD Primary Care Provider Active Start: October 08, 2024 End: October 08, 2024 Dr. Cliff Taylor MD Referring Provider Active Start: October 08, 2024 End: October 08, 2024 Dr. Prieto Gong MD Attending Provider Active Start: October 08, 2024 End: October 08, 2024 Team Status: Inactive Member Role/Relationship Status Dates Dr. Cliff Taylor MD Primary Care Provider Active Start: October 08, 2024 End: October 08, 2024 Dr. Prieto Gong MD Attending Provider Active Start: October 08, 2024 End: October 08, 2024 Dr. Prieto Gong MD Referring Provider Active Start: October 08, 2024 End: October 08, 2024 Team Status: Inactive Member Role/Relationship Status Dates Dr. Cliff Taylor MD Primary Care Provider Active Start: October 15, 2024 End: October 15, 2024 Dr. Cliff Taylor MD Referring Provider Active Start: October 15, 2024 End: October 15, 2024 Norris H Calista ART SUPERVISOR, ART SUPERVISOR-C Attending Provider Active S tart: October 15, 2024 End: October 15, 2024 Team Status: Inactive Member Role/Relationship Status Dates Dr. Cliff Taylor MD Primary Care Provider Active Start: October 15, 2024 End: October 15, 2024 Norris H Calista ART SUPERVISOR, ART SUPERVISOR-C Attending Provider Active S tart: October 15, 2024 End: October 15, 2024 Norris H Roof ART SUPERVISOR, ART SUPERVISOR-C Referring Provider Active S tart: October 15, 2024 End: October 15, 2024 Team Status: Inactive Member Role/Relationship Status Dates Dr. Cliff Taylor MD Primary Care Provider Active Start: November 06, 2024 End: November 06, 2024 Norris H Roof ART SUPERVISOR, ART SUPERVISOR-C Attending Provider Active S tart: November 06, 2024 End: November 06, 2024 Norris H Roof ART SUPERVISOR, ART SUPERVISOR-C Referring Provider Active S tart: November 06, 2024 End: November 06, 2024 Team Status: Active Member Role/Relationship Status Dates Dr. Cliff Taylor MD Primary Care Provider Active Start: November 25, 2024 Norris H Roof ART SUPERVISOR, ART SUPERVISOR-C Attending Provider Active S tart: November 25, 2024 Norris H Roof ART SUPERVISOR, ART SUPERVISOR-C Referring Provider Active S tart: November 25, 2024 Team Status: Inactive Member Role/Relationship Status Dates Dr. Cliff Taylor MD Primary Care Provider Active Start: January 15, 2025 End: January 15, 2025 Dr. Cliff Taylor MD Referring Provider Active Start: January 15, 2025 End: January 15, 2025 Norris Grigsby ART SUPERVISOR, ART SUPERVISOR-C Attending Provider Active S tart: January 15, 2025 End: January 15, 2025 Team Status: Inactive Member Role/Relationship Status Dates Dr. Cliff Taylor MD Primary Care Provider Active Start: September 27, 2024 End: September 27, 2024 Stefanie Dunaway PA, PA Attending Provider Active Start: September 27, 2024 End: September 27, 2024 Stefanie Dunaway PA, PA Referring Provider Active Start: September 27, 2024 End: September 27, 2024 Team Status: Active Member Role/Relationship Status Dates Dr. Cliff Taylor MD Primary Care Provider Active Start: September 27, 2024 Dr. Ivan Mccall MD Attending Provider Active S tart: September 27, 2024 Team Status: Inactive Member Role/Relationship Status Dates Dr. Cliff Taylor MD Primary Care Provider Active Start: October 08, 2024 End: October 08, 2024 Dr. Cliff Taylor MD Referring Provider Active Start: October 08, 2024 End: October 08, 2024 Dr. Prieto Gong MD Attending Provider Active Start: October 08, 2024 End: October 08, 2024 Team Status: Inactive Member Role/Relationship Status Dates Dr. Cliff Taylor MD Primary Care Provider Active Start: October 08, 2024 End: October 08, 2024 Dr. Prieto Gong MD Attending Provider Active Start: October 08, 2024 End: October 08, 2024 Dr. Prieto Gong MD Referring Provider Active Start: October 08, 2024 End: October 08, 2024 Team Status: Inactive Member Role/Relationship Status Dates Dr. Cliff Taylor MD Primary Care Provider Active Start: October 15, 2024 End: October 15, 2024 Dr. Cliff Taylor MD Referring Provider Active Start: October 15, 2024 End: October 15, 2024 Norris Grigsby ART SUPERVISOR, ART SUPERVISOR-C Attending Provider Active S tart: October 15, 2024 End: October 15, 2024 Team Status: Inactive Member Role/Relationship Status Dates Dr. Cliff Taylor MD Primary Care Provider Active Start: October 15, 2024 End: October 15, 2024 Norris Grigsby ART SUPERVISOR, ART SUPERVISOR-C Attending Provider Active S tart: October 15, 2024 End: October 15, 2024 Norris Grigsby ART SUPERVISOR, ART SUPERVISOR-C Referring Provider Active S tart: October 15, 2024 End: October 15, 2024 Team Status: Inactive Member Role/Relationship Status Dates Dr. Cliff Taylor MD Primary Care Provider Active Start: November 06, 2024 End: November 06, 2024 Norris Grigsby ART SUPERVISOR, ART SUPERVISOR-C Attending Provider Active S tart: November 06, 2024 End: November 06, 2024 Norris H Roof ART SUPERVISOR, ART SUPERVISOR-C Referring Provider Active S tart: November 06, 2024 End: November 06, 2024 Team Status: Active Member Role/Relationship Status Dates Dr. Cliff Taylor MD Primary Care Provider Active Start: November 25, 2024 Norris H Roof ART SUPERVISOR, ART SUPERVISOR-C Attending Provider Active S tart: November 25, 2024 Norris H Roof ART SUPERVISOR, ART SUPERVISOR-C Referring Provider Active S tart: November 25, 2024 Team Status: Inactive Member Role/Relationship Status Dates Dr. Cliff Taylor MD Primary Care Provider Active Start: January 15, 2025 End: January 15, 2025 Dr. Cliff Taylor MD Referring Provider Active Start: January 15, 2025 End: January 15, 2025 Norris Grigsby ART SUPERVISOR, ART SUPERVISOR-C Attending Provider Active S tart: January 15, 2025 End: January 15, 2025 Team Status: Inactive Member Role/Relationship Status Dates Dr. Cliff Taylor MD Primary Care Provider Active Start: January 15, 2025 End: January 15, 2025 Norris Grigsby ART SUPERVISOR, ART SUPERVISOR-C Attending Provider Active S tart: January 15, 2025 End: January 15, 2025 Norris Grigsby ART SUPERVISOR, ART SUPERVISOR-C Referring Provider Active S tart: January 15, 2025 End: January 15, 2025 Team Status: Active Member Role/Relationship Status Dates Dr. Cliff Taylor MD Primary care physician Active Team Status: Inactive Member Role/Relationship Status Dates Dr. Cliff Taylor MD Primary care physician Active Start: October 15, 2024 End: October 15, 2024 Dr. Cliff Taylor MD Referring Provider Active Start: October 15, 2024 End: October 15, 2024 Norris Grigsby ART SUPERVISOR, ART SUPERVISOR-C Attending physician Active Start: October 15, 2024 End: October 15, 2024 Team Status: Inactive Member Role/Relationship Status Dates Dr. Cliff Taylor MD Primary care physician Active Start: October 15, 2024 End: October 15, 2024 Norris Grigsby ART SUPERVISOR, ART SUPERVISOR-C Attending physician Active Start: October 15, 2024 End: October 15, 2024 Norris Grigsby ART SUPERVISOR, ART SUPERVISOR-C Referring Provider Active S tart: October 15, 2024 End: October 15, 2024 Team Status: Inactive Member Role/Relationship Status Dates Dr. Cliff Taylor MD Primary care physician Active Start: November 06, 2024 End: November 06, 2024 Norris Grigsby ART SUPERVISOR, ART SUPERVISOR-C Attending physician Active Start: November 06, 2024 End: November 06, 2024 Norris Bass Roof ART SUPERVISOR, ART SUPERVISOR-C Referring Provider Active S tart: November 06, 2024 End: November 06, 2024 Team Status: Active Member Role/Relationship Status Dates Dr. Cliff Taylor MD Primary care physician Active Start: November 25, 2024 Norris Grigsby ART SUPERVISOR, ART SUPERVISOR-C Attending physician Active Start: November 25, 2024 Norris Grigsby ART SUPERVISOR, ART SUPERVISOR-C Referring Provider Active S tart: November 25, 2024 Team Status: Inactive Member Role/Relationship Status Dates Dr. Cliff Taylor MD Primary care physician Active Start: January 15, 2025 End: January 15, 2025 Dr. Cliff Taylor MD Referring Provider Active Start: January 15, 2025 End: January 15, 2025 Norris Grgisby ART SUPERVISOR, ART SUPERVISOR-C Attending physician Active Start: January 15, 2025 End: January 15, 2025 Team Status: Inactive Member Role/Relationship Status Dates Dr. Cliff Taylor MD Primary care physician Active Start: January 15, 2025 End: January 15, 2025 Norris Grigsby ART SUPERVISOR, ART SUPERVISOR-C Attending physician Active Start: January 15, 2025 End: January 15, 2025 Norris Grigsby ART SUPERVISOR, ART SUPERVISOR-C Referring Provider Active S tart: January 15, 2025 End: January 15, 2025 Team Status: Inactive Member Role/Relationship Status Dates Dr. Cliff Taylor MD Primary care physician Active Start: February 04, 2025 End: February 04, 2025 Dr. Cliff Taylor MD Referring Provider Active Start: February 04, 2025 End: February 04, 2025 Dr. Prieto Gong MD Attending physician Active Start: February 04, 2025 End: February 04, 2025 Team Status: Active Member Role/Relationship Status Dates Dr. Cliff Taylor MD Primary care physician Active Start: February 04, 2025 Dr. Prieto Gong MD Attending physician Active Start: February 04, 2025 Dr. Prieto Gong MD Referring Provider Active Start: February 04, 2025 Team Status: Active Member Role/Relationship Status Dates Dr. Cliff Taylor MD Primary care physician Active Start: February 10, 2025 Norris Grigsby ART SUPERVISOR, ART SUPERVISOR-C Attending physician Active Start: February 10, 2025 Norris H Roof ART SUPERVISOR, ART SUPERVISOR-C Referring Provider Active S tart: February 10, 2025 Team Status: Active Member Role/Relationship Status Dates Dr. Cliff Taylor MD Primary care physician Active Start: February 10, 2025 Dr. Ivan Mccall MD Attending physician Active Start: February 10, 2025 Team Status: Inactive Member Role/Relationship Status Dates Dr. Cliff Taylor MD Primary care physician Active Start: November 06, 2024 End: November 06, 2024 Norris H Roof ART SUPERVISOR, ART SUPERVISOR-C Attending physician Active Start: November 06, 2024 End: November 06, 2024 Norris H Roof ART SUPERVISOR, ART SUPERVISOR-C Referring Provider Active S tart: November 06, 2024 End: November 06, 2024 Team Status: Active Member Role/Relationship Status Dates Dr. Cliff Taylor MD Primary care physician Active Start: November 25, 2024 Norris H Roof ART SUPERVISOR, ART SUPERVISOR-C Attending physician Active Start: November 25, 2024 Norris H Roof ART SUPERVISOR, ART SUPERVISOR-C Referring Provider Active S tart: November 25, 2024 Team Status: Inactive Member Role/Relationship Status Dates Dr. Cliff Taylor MD Primary care physician Active Start: January 15, 2025 End: January 15, 2025 Dr. Cliff Taylor MD Referring Provider Active Start: January 15, 2025 End: January 15, 2025 Norris Grigsby ART SUPERVISOR, ART SUPERVISOR-C Attending physician Active Start: January 15, 2025 End: January 15, 2025 Team Status: Inactive Member Role/Relationship Status Dates Dr. Cliff Taylor MD Primary care physician Active Start: January 15, 2025 End: January 15, 2025 Norris H Roof ART SUPERVISOR, ART SUPERVISOR-C Attending physician Active Start: January 15, 2025 End: January 15, 2025 Norris H Roof ART SUPERVISOR, ART SUPERVISOR-C Referring Provider Active S tart: January 15, 2025 End: January 15, 2025 Team Status: Inactive Member Role/Relationship Status Dates Dr. Cliff Taylor MD Primary care physician Active Start: February 04, 2025 End: February 04, 2025 Dr. Cliff Taylor MD Referring Provider Active Start: February 04, 2025 End: February 04, 2025 Dr. Prieto Gong MD Attending physician Active Start: February 04, 2025 End: February 04, 2025 Team Status: Inactive Member Role/Relationship Status Dates Dr. Cliff Taylor MD Primary care physician Active Start: February 04, 2025 End: February 04, 2025 Dr. Prieto Gong MD Attending physician Active Start: February 04, 2025 End: February 04, 2025 Dr. Prieto Gong MD Referring Provider Active Start: February 04, 2025 End: February 04, 2025 Team Status: Active Member Role/Relationship Status Dates Dr. Cliff Taylor MD Primary care physician Active Start: February 10, 2025 Norris Grigsby ART SUPERVISOR, ART SUPERVISOR-C Attending physician Active Start: February 10, 2025 Norris Grigsby ART SUPERVISOR, ART SUPERVISOR-C Referring Provider Active S tart: February 10, 2025 Team Status: Active Member Role/Relationship Status Dates Dr. Cliff Taylor MD Primary care physician Active Start: February 10, 2025 Dr. Ivan Mccall MD Attending physician Active Start: February 10, 2025 Team Status: Inactive Member Role/Relationship Status Dates Dr. Cliff Taylor MD Primary care physician Active Start: February 10, 2025 End: February 10, 2025 Norris Grigsby ART SUPERVISOR, ART SUPERVISOR-C Attending physician Active Start: February 10, 2025 End: February 10, 2025 Norris Grigsby ART SUPERVISOR, ART SUPERVISOR-C Referring Provider Active S tart: February 10, 2025 End: February 10, 2025 FOR RECORDS PERTAINING TO PATIENTS WHO ARE [...] BE BASED ON THE PRIMARY CLINICAL RECORDS. [employer] provides no warranty or guarantee of the accuracy or completeness of information in this document.
[2025-04-05 10:00] LABS: Anion Gap 11 (5-15); BUN 26 mg/dL (4-19); BUN/Creat Ratio 18.6 RATIO (10-20); Calcium,Total 9.4 mg/dL (7.6-11.0); Carbon Dioxide 24.1 mmol/L (21.0-32.0); Chloride 105 mmol/L (98-108); Glucose 114 mg/dL (70-99); Potassium 4.6 mmol/L (3.3-5.1)
== END | disposition home or self-care (01) ==
LOC: LAB 09:14
PROVIDERS: PCP Family Medicine Geriatric Medicine; Referring Provider Nurse Practitioner Family
DX: N17.9 Acute kidney failure, unspecified (principal)
CPT/HCPCS: 36415; 80048

== ENCOUNTER → 2025-05-02 | Outpatient (CLI) | payer MEDICARE, OTHER, SELFPAY ==
[2018-07-27 13:33] VITALS: BMI 27.7
[2025-05-02 14:49] LABS: Anion Gap 12 (5-15); BUN 20 mg/dL (4-19); BUN/Creat Ratio 14.0 RATIO (10-20); Calcium,Total 9.6 mg/dL (7.6-11.0); Carbon Dioxide 26.4 mmol/L (21.0-32.0); Chloride 102 mmol/L (98-108); Glucose 106 mg/dL (70-99); Potassium 4.3 mmol/L (3.3-5.1); Vitamin B12 639 pg/mL (180-914)
[2025-05-02 15:08] LABS: FOLATES,SERUM (FOLIC ACID) 8.00 ng/mL (4.60-34.80)
[2025-05-04 07:07] LABS: HOMOCYSTEINE 22.2 umol/L (0.0-19.2)
[2025-05-10 19:08] LABS: VITAMIN B6 9.8 ug/L (3.4-65.2)
== END | disposition home or self-care (01) ==
PROVIDERS: PCP Family Medicine Geriatric Medicine; Referring Provider Nurse Practitioner Family; Visit Provider Nurse Practitioner Family
DX: I42.0 Dilated cardiomyopathy (principal); K74.60 Unspecified cirrhosis of liver; I10 Essential (primary) hypertension; E78.00 Pure hypercholesterolemia, unspecified; I25.10 Atherosclerotic heart disease of native coronary artery without angina pectoris; N17.9 Acute kidney failure, unspecified; Z95.5 Presence of coronary angioplasty implant and graft; Z95.1 Presence of aortocoronary bypass graft; R18.8 Other ascites; I25.810 Atherosclerosis of coronary artery bypass graft(s) without angina pectoris; I35.1 Nonrheumatic aortic (valve) insufficiency; K76.0 Fatty (change of) liver, not elsewhere classified
CPT/HCPCS: 36415; 80048; 82607; 82746; 83090; 84207